=== PATIENT | female | born 1955 | race Caucasian/White ===

== ENCOUNTER → 2017-10-20 09:51 | Outpatient (CLI) | payer OTHER, SELFPAY ==
[2017-10-20 12:22] LABS: Absolute Lymphocyte Count 1.61 X10^3/ul (0.83-4.51); Absolute Neutrophil Count 4.8 X10^3/uL (2.0-7.7); Basophil# 0.06 X10^3/uL; Basophil% 0.8 % (0-1); Eosinophil# 0.18 X10^3/uL; Eosinophils% 2.5 % (0-5); Hematocrit 48.3 % (37-47); Hemoglobin 16.2 g/dl (12.0-15.0); Lymphocyte # 1.61 X10^3/ul (4.0); Lymphocyte % 22.6 % (19-41); Mean Corp Hgb Conc 33.5 g/gl (32-36); Mean Corpuscular Hgb 31.3 pg (27.0-32.0); Mean Corpuscular Volume 93.2 fL (81-99); Mean Platelet Vol. 10.3 fl (6.2-12.0); Monocyte# 0.47 X10^3/uL; Monocyte% 6.6 % (0-10); Neutrophil # 4.78 X10^3/uL (2.7-7.7); Neutrophil % 67.4 % (47-70); Platelet Count 257 K/mm3 (150-450); RBC Distribution Width CV 13.2 % (11.6-14.6); RBC Distribution Width SD 44.3 fl (35.1-43.9); Red Blood Count 5.18 M/mm3 (4.2-5.4); White Blood Count 7.1 K/mm3 (4.4-11.0)
[2017-10-20 12:30] LABS: POSITIVE COUNT NO; POSITIVE DIFFERENTIAL NO; POSITIVE MORPHOLOGY NO
[2017-10-20 13:03] LABS: AST(SGOT) 12 U/L (15-37); Alanine Aminotransfer ALT/SGPT 20 U/L (13-56); Albumin, Serum 3.6 g/dL (3.2-5.0); Alkaline Phosphatase 84 U/L (45-117); Anion Gap 4 (5-15); BUN 9 mg/dL (7-18); BUN/Creat Ratio 19.7 RATIO (10-20); Calcium,Total 8.5 mg/dL (8.5-10.1); Chloride 100 mmol/L (98-107); Creatinine, Serum 0.46 mg/dL (0.55-1.02); EST Glomerular Filtration Rate 146 mL/min (>60); Est Glom Filt Rate - Afr Amer 177 mL/min (>60); Globulin 3.5 g/dL (2.2-4.2); Glucose 92 mg/dL (74-106); Potassium 4.3 mmol/L (3.5-5.1); Protein, Total 7.1 g/dL (6.4-8.2); Sodium Level 136 mmol/L (136-145)
[2017-10-23 09:55] LABS: QNTFERON TB Ag Minus Nil Value < 0 IU/mL (.); QNTFERON TB Ag Value 0.03 IU/mL (.); QNTFERON TB Mitogen Value > 10.00 IU/mL (.); QNTFERON TB Nil Value 0.04 IU/mL (.)
[2017-10-23 15:50] LABS: QNTIFERON TB Gold Negative (Negative)
== END ==
PROVIDERS: Family Provider Family Medicine; PCP Family Medicine; Visit Provider Dermatology Pediatric Dermatology
DX: L40.0 Psoriasis vulgaris (principal); Z79.899 Other long term (current) drug therapy
CPT/HCPCS: 36415; 80053; 85025; 86480

== ENCOUNTER → 2018-10-12 11:40 | Outpatient (CLI) | payer MEDICARE, SELFPAY ==
[2016-05-04 11:19] VITALS: BMI 23.4
[2018-10-12 13:28] LABS: Absolute Lymphocyte Count 1.95 X10^3/ul (0.83-4.51); Absolute Neutrophil Count 5.6 X10^3/uL (2.0-7.7); Basophil# 0.06 X10^3/uL; Basophil% 0.7 % (0-1); Eosinophil# 0.18 X10^3/uL; Eosinophils% 2.2 % (0-5); Hematocrit 46.7 % (37-47); Hemoglobin 15.1 g/dl (12.0-15.0); Lymphocyte # 1.95 X10^3/ul (4.0); Lymphocyte % 23.5 % (19-41); Mean Corp Hgb Conc 32.3 g/gl (32-36); Mean Corpuscular Hgb 29.8 pg (27.0-32.0); Mean Corpuscular Volume 92.3 fL (81-99); Mean Platelet Vol. 10.6 fl (6.2-12.0); Monocyte# 0.54 X10^3/uL; Monocyte% 6.5 % (0-10); Neutrophil # 5.56 X10^3/uL (2.7-7.7); Neutrophil % 66.9 % (47-70); POSITIVE COUNT NO; POSITIVE DIFFERENTIAL NO; POSITIVE MORPHOLOGY NO; Platelet Count 274 K/mm3 (150-450); RBC Distribution Width CV 13.7 % (11.6-14.6); RBC Distribution Width SD 45.1 fl (35.1-43.9); Red Blood Count 5.06 M/mm3 (4.2-5.4); White Blood Count 8.3 K/mm3 (4.4-11.0)
[2018-10-12 13:38] LABS: AST(SGOT) 14 U/L (15-37); Alanine Aminotransfer ALT/SGPT 22 U/L (13-56); Albumin, Serum 3.9 g/dL (3.2-5.0); Alkaline Phosphatase 92 U/L (45-117); Anion Gap 9 (5-15); BUN 10 mg/dL (7-18); BUN/Creat Ratio 18.5 RATIO (10-20); Bilirubin, Direct 0.06 mg/dL (0.00-0.30); Calcium,Total 9.1 mg/dL (8.5-10.1); Chloride 105 mmol/L (98-107); Creatinine, Serum 0.54 mg/dL (0.55-1.02); EST Glomerular Filtration Rate 120 mL/min (>60); Est Glom Filt Rate - Afr Amer 146 mL/min (>60); Globulin 4.2 g/dL (2.2-4.2); Glucose 86 mg/dL (74-106); Potassium 4.2 mmol/L (3.5-5.1); Protein, Total 8.1 g/dL (6.4-8.2); Sodium Level 141 mmol/L (136-145)
[2018-10-14 20:08] LABS: QNTFERON TB Mitogen Value > 10.00 IU/mL (.); QNTFERON TB Nil Value 0.02 IU/mL (.); QNTFERON TB1+ Ag Value 0.02 IU/mL (.); QNTFERON TB2+ Ag Value 0.02 IU/mL (.)
[2018-10-15 11:12] LABS: QNTIFERON TB Positive Criteria Negative (Negative)
== END ==
PROVIDERS: Referring Provider Physician Assistant; Visit Provider Physician Assistant
DX: L40.0 Psoriasis vulgaris (principal); L82.1 Other seborrheic keratosis; D22.5 Melanocytic nevi of trunk; L81.4 Other melanin hyperpigmentation; Z08 Encounter for follow-up examination after completed treatment for malignant neoplasm; L57.8 Other skin changes due to chronic exposure to nonionizing radiation; L57.0 Actinic keratosis; L81.8 Other specified disorders of pigmentation; L90.5 Scar conditions and fibrosis of skin; D48.5 Neoplasm of uncertain behavior of skin; M12.9 Arthropathy, unspecified; Z79.899 Other long term (current) drug therapy; Z85.828 Personal history of other malignant neoplasm of skin
CPT/HCPCS: 36415; 80048; 80076; 85025; 86480

== ENCOUNTER → 2019-10-19 10:56 | Outpatient (CLI) | payer MEDICARE, SELFPAY ==
[2016-05-04 11:19] VITALS: BMI 23.4
[2019-10-19 12:33] LABS: Absolute Lymphocyte Count 2.12 X10^3/uL (0.83-4.51); Absolute Neutrophil Count 4.7 X10^3/uL (2.0-7.7); Basophil# 0.05 X10^3/uL; Basophil% 0.7 % (0-1); Eosinophil# 0.11 X10^3/uL; Eosinophils% 1.4 % (0-5); Hematocrit 51.9 % (37-47); Hemoglobin 16.8 g/dL (12.0-15.0); Lymphocyte # 2.12 X10^3/ul (4.0); Lymphocyte % 27.9 % (19-41); Mean Corp Hgb Conc 32.4 g/dL (32-36); Mean Corpuscular Hgb 30.8 pg (27.0-32.0); Mean Corpuscular Volume 95.2 fL (81-99); Mean Platelet Vol. 10.7 fl (6.2-12.0); Monocyte# 0.58 X10^3/uL; Monocyte% 7.6 % (0-10); NRBC Flagged by Analyzer 0 % (0-5); Platelet Count 263 K/mm3 (150-450); RBC Distribution Width CV 13.2 % (11.6-14.6); RBC Distribution Width SD 46.3 fl (35.1-43.9); Red Blood Count 5.45 M/mm3 (4.2-5.4); White Blood Count 7.6 K/mm3 (4.4-11.0)
[2019-10-19 12:51] LABS: ALB/GLOB Ratio 0.9 RATIO (0.9-2.4); AST(SGOT) 15 U/L (15-37); Alanine Aminotransfer ALT/SGPT 19 U/L (13-56); Albumin, Serum 3.7 g/dL (3.2-5.0); Alkaline Phosphatase 81 U/L (45-117); Anion Gap 3 (5-15); BUN 12 mg/dL (7-18); BUN/Creat Ratio 20.1 RATIO (10-20); Calcium,Total 9.5 mg/dL (8.5-10.1); Chloride 107 mmol/L (98-107); EST Glomerular Filtration Rate 107 mL/min (>60); Est Glom Filt Rate - Afr Amer 129 mL/min (>60); Glucose 97 mg/dL (74-106); Potassium 4.4 mmol/L (3.5-5.1); Protein, Total 7.7 g/dL (6.4-8.2); Sodium Level 140 mmol/L (136-145)
[2019-10-22 03:06] LABS: QNTFERON TB Mitogen Value > 10.00 IU/mL (.); QNTFERON TB Nil Value 0.01 IU/mL (.); QNTFERON TB1+ Ag Value 0.02 IU/mL (.); QNTFERON TB2+ Ag Value 0.02 IU/mL (.)
[2019-10-22 12:41] LABS: QNTIFERON TB Positive Criteria Negative (Negative)
== END ==
PROVIDERS: Referring Provider Nurse Practitioner Family; Visit Provider Nurse Practitioner Family
DX: D04.62 Carcinoma in situ of skin of left upper limb, including shoulder (principal); D04.71 Carcinoma in situ of skin of right lower limb, including hip; L40.0 Psoriasis vulgaris; Z79.899 Other long term (current) drug therapy
CPT/HCPCS: 36415; 80053; 85025; 86480

== ENCOUNTER 2021-10-03 12:47 | Outpatient (CLI) | payer MEDICARE, SELFPAY ==
--- NOTE | 2021-10-03 13:01 | CT_ITS ---
STUDY: LOW DOSE CT LUNG CANCER SCREENING REASON FOR EXAM: Female, 66 years old. SCREENING. Patient smokes 1 pack per day for 50 years. RADIATION DOSAGE (If Supplied By Facility): CTDIvol = ( 1.59 ) mGy, DLP = ( 60.05 ) mGycm TECHNIQUE: No contrast was administered. Low dose technique was utilized (average mAS-38 and kVp 120). 1.25 mm axial source images with a slice interval of 1.25-mm were reconstructed in lung windows. 2.5 mm axial source images with a slice interval of 2.5-mm were reconstructed in lung windows. 5.0 mm axial source images with a slice interval of 5.0-mm were reconstructed in soft tissue windows. Nodule measured using lung windows on PACS and/or independent workstation with automated measurement of minimum and maximum diameter. Nodule measurement reported as average diameter rounded to the nearest whole number. Growth is defined as an increase ins size of greater than 1.5 mm. COMPARISON: None. NODULES: There is a 7.4 mm noncalcified nodule in the peripheral lateral aspect of the right upper lobe as seen on axial image #55 and coronal image #46. This may represent a focal area of scarring. A follow-up CT scan in 6 months is recommended for further evaluation. Emphysema: Hyperinflation. Emphysematous changes worse in the upper lobes. Linear scarring is seen at the left lung base as well as in the anterior medial aspect of the right middle lobe. There is a 2.6 cm x 2.6 cm bleb in the peripheral lateral aspect of the right lower lobe. Endobronchial lesion: None Aorta: Mild degree of atherosclerotic calcific plaques of the aortic arch. Coronary arteries: Coronary artery calcification. Heart: Unremarkable Pulmonary artery: Unremarkable Mediastinal nodes: Unremarkable Other chest and abdominal findings: Bilateral breast prostheses. CT/Low Dose CT Lung Screening IMPRESSION: Lung-RADS category 3 - Continue screening with LDCT in 6 months. IMPORTANT NOTES FOR USE: ACR Lung-RADS Version 1.1 Assessment Categories Release Date: 2018 Category: Coded 0-4 bases on nodule(s) with highest degree of suspicion. Negative screen is defined as categories 1 and 2; a positive screen is defined as categories 3 and 4. Category 3 and 4A nodules that are unchanged on interval CT should be coded as category 2, and individuals returned to screening in 12 months. Category 4X: Category 3 or 4 nodules with additional imaging findings that increase the suspicion of lung cancer, such as spiculation, GGN that doubles in size in 1 year, enlarged lymph notes, etc. Category Modifiers: S (significant finding unrelated to lung cancer) Electronically Signed: Theo Nelson MD at 14:18 EST ,
== END 2021-10-03 23:59 | disposition short-term general hospital (02) ==
LOC: CT 12:53
DX: Z12.2 Encounter for screening for malignant neoplasm of respiratory organs (principal); F17.210 Nicotine dependence, cigarettes, uncomplicated
CPT/HCPCS: 71271

== ENCOUNTER 2023-01-18 11:40 | Emergency (ER) | payer MEDICARE, SELFPAY ==
[2023-01-18 11:41] VITALS: PULSE 155
[2023-01-18 11:44] VITALS: BP 97/75; PULSE 158; RESP 25; TEMP 36.8; O2SAT 91; BMI 25.7
--- NOTE | 2023-01-18 11:45 | EKG12_ITS ---
Test Reason : SVT Blood Pressure : / mmHG Vent. Rate : 148 BPM Atrial Rate : 000 BPM P-R Int : 000 ms QRS Dur : 090 ms QT Int : 298 ms P-R-T Axes : 000 -50 078 degrees QTc Int : 467 ms Atrial fibrillation with rapid ventricular response Left axis deviation Minimal voltage criteria for LVH, may be normal variant ( Mono product ) ST depression, consider subendocardial injury Abnormal ECG Confirmed by SELVIN JONES, RAMYA ([id number]), rewrite editor DANA MOSS ([id number]) on 01/19/2023 9:47:38 AM Referred By: MEL Confirmed By:RAMYA MONTALVO MD
--- NOTE | 2023-01-18 11:45 | RAD_ITS ---
STUDY: X-RAY CHEST REASON FOR EXAM: Female, 67 years old. Chest pain TECHNIQUE: Single AP portable view of the chest. COMPARISON: Comparison is made with prior study May 04, 2016. FINDINGS: EKG lead are seen. Hyperinflation. Scattered calcified granulomas. There is no demonstrated pleural abnormality. Normal size heart. Normal mediastinum and cash. There is prominence of the pulmonary hilar arteries without peripheral pulmonary vascular congestion, suggesting pulmonary hypertension. There is atherosclerotic calcification of the aortic arch with tortuosity. There is a dextroscoliosis of the thoracic spine. There is degenerative osteoarthritis of the bilateral shoulders. There is no demonstrated abnormality of the visualized soft tissue structures of the upper abdomen. RAD/Chest 1 View (Portable) IMPRESSION: Hyperinflation. Prominence of the pulmonary bilaterally. Scattered calcified granulomas. Electronically Signed: Theo Nelson MD at 12:18 EDT ,
[2023-01-18 11:48] VITALS: O2SAT 90
--- NOTE | 2023-01-18 11:54 | EDS_ITS ---
HPI History of Present Illness Chief Complaint: Palpitations Detail of Chief Complaint: Potation's with accelerated heart rate. Informant: patient Onset/Context/Timing Onset: Today and Hours Activity at onset: sudden Timing: Continuous Associated Symptoms: Negative for Nausea, Vomiting, Diaphoresis, Dyspnea, Cough, Fever, Lightheadedness, Acid Reflux or Palpitations Narrative Narrative: 67-year-old female history of COPD and hypertension on metoprolol. She has never had any NE, coronary disease or dysrhythmia. This morning she had palpitations and accelerated heart rate. She denies any recent illness. She denies any chest pain. She denies any new leg pain or swelling. No hemoptysis. No history of DVT or PE. She is on no blood thinners. No known thyroid disease. Prior Similar Symptoms: No Recent Illness/Hospitalization: No CVD Risk Factors: Negative for Diabetes PE Risk Factors: Negative for Recent Travel/Surgery, Recent Immobilization, Prior DVT or PE, Cancer or OCP + Smoking + >/=35 TAD Risk Factors: Negative for Marfan's Syndrome [facility] Medical History Acute bronchitis, unspecified History of emphysema Hypertension Home Medications albuterol sulfate 90 mcg/actuation aerosol inhaler (ProAir HFA) 1 puff inhalation Q4H PRN PRN Sob &/Or Wheezing 04/21/16 [History Last Taken Unknown] cyclobenzaprine 10 mg tablet 10 mg PO TID PRN PRN SPASMS ##60 05/06/16 [Rx Last Taken Unknown] ferrous sulfate 325 mg (65 mg iron) tablet 325 mg PO DAILY 01/18/23 [History Last Taken Unknown] furosemide 20 mg tablet 20 mg PO DAILY 01/18/23 [History Last Taken Unknown] metoprolol succinate 50 mg tablet,extended release 24 hr mg PO 01/18/23 [History Last Taken Unknown] sacubitril 24 mg-valsartan 26 mg tablet (Entresto) 1 tab PO BID 01/18/23 [History Last Taken Unknown] Allergy/AdvReac Type Severity Reaction Status Date / Time No Known Allergies Allergy Verified 01/18/23 11:46 Surgical History H/O adenoidectomy History of appendectomy Hx of neck surgery Hx of tonsillectomy Total knee replacement status Social History Smoking Status: Current every day smoker tobacco type: cigarettes ROS ROS ED ROS Narrative Denies recent illness. Palpitations accelerated heart rate today. Review of Systems ROS Unobtainable: Denies due to encephalopathy Constitutional Constitutional ED: Denies chills or fever(s) Eyes Eyes: Reports none ENT ENT ED: Denies ear pain Cardiovascular Cardiovascular: Reports as per HPI, palpitations and racing heartbeat; Denies chest pain Respiratory/Chest Respiratory/Chest: Denies cough or dyspnea Gastrointestinal Gastrointestinal: Denies abdominal pain Genitourinary Genitourinary ED: Denies dysuria or hematuria Musculoskeletal Musculoskeletal: Denies arthralgias Integumentary Denies abscess Neurologic Neurologic: Denies headache(s) Psychiatric Psychiatric: Denies anxiety or depression Endocrine Endocrinology: Denies cold intolerance Hematologic/Lymphatic Hematologic/Lymphatic: Denies easy bleeding Allergic/Immunologic Allergic/Immunologic ED: Denies mouth swelling or tongue swelling EXAM Physical Exam Narrative Exam Narrative: Well-appearing 67-year-old female. Obvious A-fib RVR on the monitor. Heart rate 158. Blood pressure was initially 97/75. Pulse ox 91% on room air no hypoxia. She has COPD. She is in no distress. She is sitting upright in bed. H EENT exam unremarkable. Neck nontender no lymphadenopathy. No thyromegaly. Lungs clear to auscultation bilaterally. Heart tachycardic with irregularly irregular rate of 150. Chest wall nontender. Abdomen soft nontender. Moving all 4 extremities. Calves are nontender. She has trace ankle edema. Neurologically she is awake and alert with no focal motor deficits. Answering questions and following commands. Const Vital Signs: 01/18/23 11:44 01/18/23 11:41 01/18/23 11:48 Temperature 98.2 F Temperature Source Temporal Pulse Rate 158 H 155 H Respiratory Rate 25 H Respiratory Effort Respiratory Pattern Blood Pressure 97/75 Blood Pressure Mean 82 Pulse Ox 91 90 Oxygen Delivery Method Room Air Room Air Oxygen Flow Rate (L/min) 01/18/23 11:49 01/18/23 11:49 01/18/23 12:10 Temperature Temperature Source Pulse Rate 138 H Respiratory Rate 24 H Respiratory Effort Normal Non-Labored Normal Non-Labored Respiratory Pattern Normal Blood Pressure 118/71 Blood Pressure Mean 86 Pulse Ox 90 Oxygen Delivery Method Nasal Cannula Oxygen Flow Rate (L/min) 2 01/18/23 12:58 Temperature Temperature Source Pulse Rate 108 H Respiratory Rate 28 H Respiratory Effort Respiratory Pattern Blood Pressure 108/83 H Blood Pressure Mean 91 Pulse Ox 91 Oxygen Delivery Method Nasal Cannula Oxygen Flow Rate (L/min) 2 Positive well nourished and well developed; Negative for obese, cachectic, contractures or unkempt General Appearance ED: well developed and NAD; Negative for unkempt, cachectic, contractures or pallor Nutritional Appearance: Negative for cachectic or obese HEENT Reports moist mucous membranes; Denies dry mucous membranes normocephalic and atraumatic; Negative for trauma or tenderness Mouth ED: No dry mucous membranes Mouth: No dry mucous membranes Eyes PERRL and EOMs intact bilaterally General Eye ED: Negative for pale conjunctiva or scleral icterus Neck no lymphadenopathy, supple and no JVD General: Negative for tenderness Chest Wall inspection of chest normal and palpation of chest normal Chest: Negative for tenderness Resp normal respiratory effort and clear to auscultation bilaterally Effort and Inspection: Negative for respiratory distress Auscultation: Negative for rales, rhonchi or wheezes Cardio S1 normal heart sound, S2 normal heart sound and no murmurs; Negative for r egular rate or regular rhythm Rate: tachycardic Rhythm: abnormal rhythm irregularly irregular GI normal to inspection, nondistended, normoactive bowel sounds, soft to palpation, non-tender, non-distended and no masses Auscultation: Negative for hyperactive bowel sounds Back/Spine no CVA tenderness and no thoracic nor lumbar tenderness General Back: Negative for CVA tenderness Cervical Spine: Negative for cervical spine tenderness Extremity normal to inspection Extremity Narrative: Trace ankle edema bilaterally. General Extremety ED: Yes edema General Extremity: edema Neuro oriented x3 and CN's II-XII intact bilaterally Sensorium / Orientation: awake, alert, oriented to person, oriented to place and oriented to time; Negative for confused, lethargic or stuporous Motor Exam: strength 5/5 throughout Psych mental status grossly normal Appearance: Negative for unkempt Mood & Affect: Negative for depressed, anxious or tearful Skin no rashes or lesions noted and no wounds General Skin Exam: Negative for jaundice or pallor Rashes: No rashes noted Trauma: Negative for abrasion or laceration MDM MDM MDM Narrative Medical decision making narrative: 67-year-old female history of COPD and hypertension with new onset A-fib RVR. She is hypotensive from it. Squad gave her a fluid bolus I will give her another. She will be given Cardizem we will very slowly. Moving cardiac work- up will be instituted along with TSH. Repeat exam patient is doing well at 12:30 PM. Heart rate is now in the 80s and 90s she remains in A-fib after the Cardizem. Discussed with patient all of her test results. She wants to be worked up as an outpatient. Currently she is controlled rate. She is on a beta-theodore at home. She has had no chest pain or other concerning symptoms. I spoke with the patient's nurse practitioner and the cardiology office in [place]. We discussed her case and she will ensure close follow-up and is comfortable with discharge. History & Record Review Discussion w/independent historian: Patient Additional record(s) reviewed:: Prior inpatient record, Prior outpatient record, Prior ED visit and Prior labs Lab Data Attestation: I reviewed the patient's lab results. Lab results narrative: CBC shows a white count 8.3. H&H 17 and 53. Platelets 256. Electrolytes unremarkable gap of a normal BUN and creatinine. Glucose 116. Troponin normal at 8 and TSH 1.1. Labs: Laboratory Results - last 24 hr 01/18/23 01/18/23 11:15 11:15 WBC 8.3 RBC 5.50 H Hgb 17.6 H Hct 53.8 H MCV 97.8 MCH 32.0 MCHC 32.7 RDW Std Deviation 47.7 H RDW Coeff of Sarah 13.2 Plt Count 256 MPV 10.2 Immature Gran % (Auto) 0.200 Neut % (Auto) 59.3 Lymph % (Auto) 30.3 [place] % (Auto) 6.8 Eos % (Auto) 2.4 Baso % (Auto) 1.0 Absolute Neuts (auto) 4.9 Absolute Lymphs (auto) 2.52 Nucleated RBC % 0 Sodium 141 Potassium 3.9 Chloride 103 Carbon Dioxide 30.0 Anion Gap 8 BUN 15 Creatinine 0.82 Estim Creat Clear Calc 55.91 Est GFR (MDRD) Af Amer 89 Est GFR (MDRD) Non-Af 74 BUN/Creatinine Ratio 18.4 Glucose 116 H Calcium 9.4 Troponin I High Sens 8 TSH 1.12 Radiography Chest X-Ray - ED: 1 View, Read by ED Physician, Read by Radiologist, Lungs, Mediastinum, Bony Structures, No Acute Disease and Chronic Changes Diagnostic Testing: Clinical Impression(s) from Imaging Studies Chest X-Ray 01/18/23 11:45 IMPRESSION: Hyperinflation. Prominence of the pulmonary bilaterally. Scattered calcified granulomas. Electronically Signed: Theo Nelson MD at 12:18 EDT , Chest x-ray, portable, single view interpreted both by myself and the radiologist shows no new processes. Chronic changes. Normal cardiac silhouette. Normal mediastinum. Change Rhythm Strip Rhythm Strip: A-fib Rate: 148 Ectopy: None EKG Initial EKG: Attestation: I personally reviewed and interpreted this EKG as follows: Interpretation: Atrial Fibrillation Comments: New onset atrial fibrillation with rapid ventricular rate of 148. Rate dependent ST depression laterally. LVH. Changed from prior EKG from 7 years ago in 2016. Prior EKG tracings: available for review Prior: Changed Discharge Plan Triage Chief Complaint: Palpitations ED Provider: Meng Ramirez Dx/Rx/DC Orders Clinical Impression: Atrial fibrillation with rapid ventricular response, Atrial fibrillation, new onset, History of COPD Instructions: ED AFIB Prescriptions: No Action albuterol sulfate [ProAir HFA] 1 PUFF inhaler 1 puff inhalation Q4H PRN PRN (Reason: Sob &/Or Wheezing) Label Comments: breathing cyclobenzaprine 10 MG tablet 10 mg PO TID PRN PRN (Reason: SPASMS) Qty: 60 0RF Label Comments: muscle spasms Entresto 24-26 mg tablet 1 tab PO BID Label Comments: TAKE 1 TABLET BY MOUTH TWICE A DAY metoprolol succinate 50 mg tablet extended release 24 hr PO Label Comments: TAKE 1 TABLET BY MOUTH EVERY DAY ferrous sulfate 325 mg (65 mg iron) tablet 325 mg PO DAILY Label Comments: TAKE 1 TABLET BY MOUTH EVERY OTHER DAY WITH FOOD furosemide 20 mg tablet 20 mg PO DAILY Label Comments: TAKE 1 TABLET BY MOUTH EVERY DAY Primary Care Provider: Michelle Barrios Referrals: Michelle Barrios, DO [Primary Care Provider] - As Needed Activity Restrictions/Additional Instructions: You have a new abnormal heart rhythm called atrial fibrillation. It initially was accelerated with a heart rate in the 150s. You are still in the abnormal rhythm but your rates now in the 80s. Continue your blood pressure medication metoprolol which should also help control your heart rate. Follow-up with your mammal control agent as soon as possible. Call them today to get an appointment. They may want to start you on different medications, do other cardiac testing or even start you on a blood thinner. Watch your blood pressure and pulse check at least twice daily. If you are heart rate continues over 100 you need to be reevaluated. If you are feeling worse you need to be reevaluated. I spoke with your cardiology nurse practitioner in [place] call their office and they will ensure close follow-up. Disposition Disposition: Home, Self Care
[2023-01-18 12:10] VITALS: BP 118/71; PULSE 138; RESP 24; O2SAT 90
[2023-01-18 12:10] LABS: Absolute Lymphocyte Count 2.52 X10^3/uL (0.83-4.51); Absolute Neutrophil Count 4.9 X10^3/uL (2.0-7.7); Basophil# 0.08 X10^3/uL; Eosinophils% 2.4 % (0-5); Hematocrit 53.8 % (37-47); Hemoglobin 17.6 g/dL (12.0-15.0); Lymphocyte # 2.52 X10^3/ul (0.83-4.51); Lymphocyte % 30.3 % (19-41); Mean Corp Hgb Conc 32.7 g/dL (32-36); Mean Corpuscular Volume 97.8 fL (81-99); Mean Platelet Vol. 10.2 fl (6.2-12.0); Monocyte# 0.57 X10^3/uL; Monocyte% 6.8 % (0-10); NRBC Flagged by Analyzer 0 % (0-5); Neutrophil # 4.94 X10^3/uL (2.7-7.7); Neutrophil % 59.3 % (47-70); Platelet Count 256 K/mm3 (150-450); RBC Distribution Width CV 13.2 % (11.6-14.6); RBC Distribution Width SD 47.7 fl (35.1-43.9); White Blood Count 8.3 K/mm3 (4.4-11.0)
[2023-01-18] MEDS: dilTIAZem 25 MG/5 ML Vial IV BOLUS (12:10)
[2023-01-18 12:36] LABS: Anion Gap 8 (5-15); BUN 15 mg/dL (7-18); BUN/Creat Ratio 18.4 RATIO (10-20); Calcium,Total 9.4 mg/dL (8.5-10.1); Chloride 103 mmol/L (98-107); Creatinine, Serum 0.82 mg/dL (0.55-1.02); EST Glomerular Filtration Rate 74 mL/min (>60); Est Glom Filt Rate - Afr Amer 89 mL/min (>60); Estimated Creatinine Clearance 55.91 ml/min; Glucose 116 mg/dL (74-106); Potassium 3.9 mmol/L (3.5-5.1); Sodium Level 141 mmol/L (136-145); Thyroid Stim Hormone (TSH) 1.12 uIU/mL (0.358-3.74); Troponin-I HS 8 pg/mL (3.0-54.0)
[2023-01-18 12:58] VITALS: BP 108/83; PULSE 108; RESP 28; O2SAT 91
[2023-01-18 13:30] VITALS: BP 102/85; PULSE 90; RESP 24; O2SAT 92
== END 2023-01-18 13:34 | disposition home or self-care (01) ==
PROVIDERS: Emergency Provider Emergency Medicine; Visit Provider Emergency Medicine
DX: I48.91 Unspecified atrial fibrillation (principal); J43.9 Emphysema, unspecified; I10 Essential (primary) hypertension; F17.210 Nicotine dependence, cigarettes, uncomplicated; Z79.899 Other long term (current) drug therapy
CPT/HCPCS: 71045; 80048; 84443; 84484; 85025; 93005; 96361; 96374; 99285; J7050

== ENCOUNTER 2023-04-28 20:56 | Inpatient (IN) | payer MEDICARE, SELFPAY ==
[2023-04-28 20:57] VITALS: BP 90/65; PULSE 142; RESP 20; TEMP 36.6
[2023-04-28 21:03] VITALS: BMI 24.8
[2023-04-28 21:04] VITALS: O2SAT 96
--- NOTE | 2023-04-28 21:10 | RAD_ITS ---
INDICATION: chest pain EXAMINATION/TECHNIQUE: X-RAY - XR Chest 1 View COMPARISON: 01/18/2023. FINDINGS: LINES/DEVICES: None. LUNGS: No consolidation or evidence of an effusion. No evidence of edema or a pneumothorax. MEDIASTINUM AND CARDIOVASCULAR STRUCTURES: Cardiac silhouette is normal in size and contour. Mediastinum is unremarkable. BONES AND SOFT TISSUES: No acute abnormality. RAD/Chest 1 View (Portable) IMPRESSION: No evidence of cardiopulmonary disease. Electronically Signed: Vazquez Duran DO at 21:41 EDT ,
[2023-04-28] MEDS: 0.9% Normal Saline 1,000 ML 1000 ML IV (21:12)
[2023-04-28 21:29] LABS: Absolute Lymphocyte Count 1.86 X10^3/uL (0.83-4.51); Absolute Neutrophil Count 5.1 X10^3/uL (2.0-7.7); Basophil# 0.07 X10^3/uL; Basophil% 0.9 % (0-1); Eosinophil# 0.16 X10^3/uL; Lymphocyte # 1.86 X10^3/ul (0.83-4.51); Lymphocyte % 23.7 % (19-41); Mean Corp Hgb Conc 32.2 g/dL (32-36); Mean Corpuscular Hgb 31.4 pg (27.0-32.0); Mean Corpuscular Volume 97.3 fL (81-99); Mean Platelet Vol. 10.6 fl (6.2-12.0); Monocyte# 0.64 X10^3/uL; Monocyte% 8.2 % (0-10); NRBC Flagged by Analyzer 0 % (0-5); Neutrophil # 5.09 X10^3/uL (2.7-7.7); Neutrophil % 64.9 % (47-70); Platelet Count 290 K/mm3 (150-450); RBC Distribution Width CV 15.7 % (11.6-14.6); RBC Distribution Width SD 55.4 fl (35.1-43.9); Red Blood Count 5.99 M/mm3 (4.2-5.4); White Blood Count 7.8 K/mm3 (4.4-11.0)
[2023-04-28 21:42] LABS: Hematocrit 58.3 % (37-47)
[2023-04-28 21:43] LABS: Hemoglobin 18.8 g/dL (12.0-15.0)
[2023-04-28] MEDS: 0.9% Normal Saline 1,000 ML 999 ML IV (21:43)
[2023-04-28 21:48] LABS: Anion Gap 9 (5-15); BUN 11 mg/dL (7-18); BUN/Creat Ratio 11.3 RATIO (10-20); Calcium,Total 9.4 mg/dL (8.5-10.1); Chloride 98 mmol/L (98-107); Creatinine, Serum 0.97 mg/dL (0.55-1.02); EST Glomerular Filtration Rate 60 mL/min (>60); Est Glom Filt Rate - Afr Amer 73 mL/min (>60); Glucose 167 mg/dL (74-106); Potassium 3.6 mmol/L (3.5-5.1); Sodium Level 138 mmol/L (136-145); Troponin-I HS (w/2H Reflex) 12 pg/mL (3.0-54.0)
[2023-04-28 22:18] LABS: International Normalized Ratio 3.3; Prothrombin Time (Protime)PT. 33.8 SECONDS (11.7-14.9)
[2023-04-28 22:19] VITALS: BP 124/93; PULSE 133; RESP 30; O2SAT 91
[2023-04-28 22:29] VITALS: BP 124/89; PULSE 97; RESP 27; O2SAT 98
--- NOTE | 2023-04-28 22:44 | ED.VIS.CHEST ---
HPI History of Present Illness Chief Complaint: Palpitations Narrative Narrative: 67-year-old female with recent new onset of A-fib and may currently on Coumadin and has been therapeutic. Patient on metoprolol 50 mg p.o. twice daily. She is on Lasix 20 mg daily. Patient states she has no history of CHF. Patient states that she did have some pain between her shoulder blades that she radiated into her left arm. It is now gone. The onset of this was about 730 tonight. Patient states he had a headache with this. No fevers or chills. She does have some nausea which resolved. [facility] Medical History (Updated 04/28/23 @ 23:[address] Marixa Gama DO) Acute bronchitis, unspecified Afib Chronic anticoagulation History of emphysema Hypertension Home Medications albuterol sulfate 90 mcg/actuation aerosol inhaler (ProAir HFA) 1 puff inhalation Q4H PRN PRN Sob &/Or Wheezing 04/21/16 [History Last Taken Unknown] cyclobenzaprine 10 mg tablet 10 mg PO TID PRN PRN SPASMS ##60 05/06/16 [Rx Last Taken Unknown] ferrous sulfate 325 mg (65 mg iron) tablet 325 mg PO DAILY 01/18/23 [History Last Taken Unknown] furosemide 20 mg tablet 20 mg PO DAILY 01/18/23 [History Last Taken Unknown] metoprolol succinate 50 mg tablet,extended release 24 hr mg PO 01/18/23 [History Last Taken Unknown] sacubitril 24 mg-valsartan 26 mg tablet (Entresto) 1 tab PO BID 01/18/23 [History Last Taken Unknown] Allergy/AdvReac Type Severity Reaction Status Date / Time No Known Allergies Allergy Verified 04/28/23 21:03 Surgical History H/O adenoidectomy History of appendectomy Hx of neck surgery Hx of tonsillectomy Total knee replacement status Social History Smoking Status: Current every day smoker tobacco type: cigarettes ROS ROS ED Constitutional Constitutional ED: Denies chills, fever(s) or sweats Eyes Eyes: Denies blurry vision or change in vision ENT ENT ED: Denies ear pain or sore throat Cardiovascular Cardiovascular: Reports chest pain, palpitations and racing heartbeat Respiratory/Chest Respiratory/Chest: Denies cough, dyspnea or sputum Gastrointestinal Gastrointestinal: Reports nausea; Denies abdominal pain, constipation, diarrhea or vomiting Genitourinary Genitourinary ED: Denies dysuria, hematuria or urinary frequency Musculoskeletal Musculoskeletal: Reports back pain; Denies arthralgias, myalgias or neck pain Integumentary Denies abscess, Abrasions or rash Neurologic Neurologic: Denies headache(s), paresthesias or weakness Psychiatric Psychiatric: Denies anxiety, depression, suicidal ideation or suicidal thoughts Endocrine Endocrinology: Denies polydipsia or polyuria EXAM Physical Exam Const Vital Signs: 04/28/23 20:57 04/28/23 21:04 04/28/23 21:04 Temperature 97.9 F Temperature Source Temporal Pulse Rate 142 H Respiratory Rate 20 H Respiratory Effort Normal Non-Labored Blood Pressure 90/65 Blood Pressure Mean 73 Pulse Ox 96 Oxygen Delivery Method Nasal Cannula Oxygen Flow Rate (L/min) 4 04/28/23 22:19 04/28/23 22:29 Temperature Temperature Source Pulse Rate 133 H 97 Respiratory Rate 30 H 27 H Respiratory Effort Blood Pressure 124/93 H 124/89 H Blood Pressure Mean 103 100 Pulse Ox 91 98 Oxygen Delivery Method Nasal Cannula Oxygen Flow Rate (L/min) 1 5 Positive well nourished General Appearance ED: NAD; Negative for pallor HEENT Reports moist mucous membranes normocephalic Eyes PERRL and EOMs intact bilaterally Chest Wall inspection of chest normal Resp normal respiratory effort and clear to auscultation bilaterally Auscultation: Negative for rales, rhonchi or wheezes Cardio regular rate GI normal to inspection, nondistended, normoactive bowel sounds Neuro oriented x3 and CN's II-XII intact bilaterally Sensorium / Orientation: awake and alert Psych mental status grossly normal Skin no rashes or lesions noted General Skin Exam: Negative for jaundice or pallor Heart Score History: Slightly/Non-Suspicious ECG: Normal Age: >/= 65 years Risk Factors: 1 or 2 Risk Factors Troponin: </= Normal Limit Score: 3 MDM MDM MDM Narrative Medical decision making narrative: Patient presenting with chest pain and palpitations. Differential includes acute coronary syndrome, CHF, A-fib, a flutter, pneumonia, PE. She has a negative and appears to be in A-fib on arrival. Her EKG shows A-fib with rapid ventricular response at 144 bpm without sign of EKG changes from previous EKG 18 Jan 2023. This was also in RVR. CBC will be obtained to assess white blood cell count, hemoglobin, platelets. BMP to assess renal function, electrolytes, glucose. BNP to assess for CHF. NR will be obtained to make sure she is therapeutic. Chest x-ray to rule out CHF, pneumonia. Patient's blood pressure was low on arrival and she is given 2 L of normal saline. She is on oxygen but states she does wear oxygen at home as needed. She normally wears 2 L. Patient's blood pressure did improve and she was amiodarone 50 mg and her heart rate is now in the 90s. She feels much better. She is pain-free. Initial troponin 12. BNP 736. We will obtain a delta troponin. Delta troponin came back at 71 therefore the changes greater than 20. Patient given aspirin. Discussed with hospitalist for admission. Heart rate is still well controlled in the 60s currently on the monitor. Patient is requiring a little more oxygen at this point. I do not believe she has a PE because she is therapeutic with her INR. Impression: 1. Chest pain 2. A-fib with RVR 3. Hypotension resolved Lab Data Attestation: I reviewed the patient's lab results. Labs: Laboratory Results - last 24 hr 04/28/23 04/28/23 04/28/23 20:20 22:05 22:40 WBC 7.8 RBC 5.99 H Hgb 18.8 H* Hct 58.3 H MCV 97.3 MCH 31.4 MCHC 32.2 RDW Std Deviation 55.4 H RDW Coeff of Sarah 15.7 H Plt Count 290 MPV 10.6 Immature Gran % (Auto) 0.300 Neut % (Auto) 64.9 Lymph % (Auto) 23.7 [place] % (Auto) 8.2 Eos % (Auto) 2.0 Baso % (Auto) 0.9 Absolute Neuts (auto) 5.1 Absolute Lymphs (auto) 1.86 Nucleated RBC % 0 PT Cancelled 33.8 H INR Cancelled 3.3 Sodium 138 Potassium 3.6 Chloride 98 Carbon Dioxide 31.0 Anion Gap 9 BUN 11 Creatinine 0.97 Est GFR (MDRD) Af Amer 73 Est GFR (MDRD) Non-Af 60 BUN/Creatinine Ratio 11.3 Glucose 167 H Calcium 9.4 Troponin I High Sens 12 71 H B-Natriuretic Peptide 736.0 H Radiography Diagnostic Testing: Clinical Impression(s) from Imaging Studies Chest X-Ray 04/28/23 21:10 IMPRESSION: No evidence of cardiopulmonary disease. Electronically Signed: Vazquez Duran DO at 21:41 EDT , Discharge Plan Triage Chief Complaint: Palpitations ED Provider: Silver Harris Dx/Rx/DC Orders Prescriptions: No Action albuterol sulfate [ProAir HFA] 1 PUFF inhaler 1 puff inhalation Q4H PRN PRN (Reason: Sob &/Or Wheezing) Patient Comments: breathing cyclobenzaprine 10 MG tablet 10 mg PO TID PRN PRN (Reason: SPASMS) Qty: 60 0RF Patient Comments: muscle spasms Entresto 24-26 mg tablet 1 tab PO BID Patient Comments: TAKE 1 TABLET BY MOUTH TWICE A DAY metoprolol succinate 50 mg tablet extended release 24 hr PO Patient Comments: TAKE 1 TABLET BY MOUTH EVERY DAY ferrous sulfate 325 mg (65 mg iron) tablet 325 mg PO DAILY Patient Comments: TAKE 1 TABLET BY MOUTH EVERY OTHER DAY WITH FOOD furosemide 20 mg tablet 20 mg PO DAILY Patient Comments: TAKE 1 TABLET BY MOUTH EVERY DAY Primary Care Provider: Michelle Barrios Referrals: Michelle Barrios DO [Primary Care Provider] -
[2023-04-28 22:45] LABS: Reflex Troponin-HS? (from REC) Y
[2023-04-28 23:00] VITALS: BP 115/83; PULSE 67; RESP 26; O2SAT 98
[2023-04-28 23:04] LABS: Troponin-I HS 71 pg/mL (3.0-54.0)
--- NOTE | 2023-04-28 23:17 | HP.PCM.HOS_ITS ---
[facility] - General General Date of Admission: 04/28/23 Date of Service: 04/28/23 Chief Complaint: Chest Pain HPI Narrative JANENE ALBARRAN, is a 67 F who presented to the emergency department at [facility] on 04/29/2023 complaining of back pain in her mid back that radiated to her left shoulder and down her left arm. It started at about 730 this evening and the patient reported she had a headache with this. She also complained of some associated nausea which resolved. Denies any vomiting, diaphoresis or significant shortness of breath at the time however she is feeling more short of breath now. She has a strong family history of coronary disease having one of her brothers at 57 from coronary artery disease and both of her sisters having disease as well. She is the oldest. She still smokes. At the time of my evaluation she stated her headache and resolved and she was pain-free. On presentation she was noted to be in A-fib with RVR. She was recently diagnosed with A-fib back in January of this year and has been on Coumadin and beta-theodore. She states that she does not usually feel when she goes in and out of A-fib and when she came in last time she was just having anxiety. She is never experienced the pain she had this evening. It occurred while she was driving her car. In the emergency department she was given amiodarone bolus which actually converted her to normal sinus rhythm. Her blood pressures were low on arrival likely related to her RVR and she was given 2 L IV bolus. Vital signs on presentation showed a temperature of 97.9, heart rate 142, blood pressure was 90/65, respiratory rate was 20 and oxygen saturation was not documented on room air however on 4 L nasal cannula she was 96%. CBC was unremarkable when compared to previous however she does have an erythrocytosis which appears to be chronic. INR was 3.3. Electrolytes were normal. Renal function was normal with a BUN of 11 and a serum creatinine of 0.97. Glucose was elevated at 167 and the patient does not have a documented history of diabetes. Her initial troponin was 12 with a repeat at 71. BNP was 736. Her initial EKG showed A-fib with RVR and a rate of [address] depression that was quite significant in V3 through V6. When I compared it to her previous EKG from January when she was in A-fib with RVR with a similar rate of 144 this depression was not present. She also had very slight elevation in aVR. Follow-up EKG after she had converted to normal sinus rhythm does not show any ST elevation or depression. Chest x-ray is unremarkable for any acute findings however does show hyperinflation. [facility] Medical History (Updated 04/29/23 @ 00:[address] Marixa Gama DO) Acute bronchitis, unspecified Afib Chronic anticoagulation Degenerative disc disease History of emphysema Hypertension Osteoarthritis Tobacco abuse Home Medications albuterol sulfate 90 mcg/actuation aerosol inhaler (ProAir HFA) 1 puff inhalation Q4H PRN PRN Sob &/Or Wheezing 04/21/16 [History Last Taken Unknown] cyclobenzaprine 10 mg tablet 10 mg PO TID PRN PRN SPASMS ##60 05/06/16 [Rx Last Taken Unknown] ferrous sulfate 325 mg (65 mg iron) tablet 325 mg PO DAILY anemia 01/18/23 [History Last Taken Unknown] furosemide 20 mg tablet 20 mg PO DAILY edema 01/18/23 [History Last Taken Unknown] metoprolol succinate 50 mg tablet,extended release 24 hr 50 mg PO DAILY htn 01/18/23 [History Last Taken Unknown] sacubitril 24 mg-valsartan 26 mg tablet (Entresto) 1 tab PO BID . 01/18/23 [History Last Taken Unknown] Allergy/AdvReac Type Severity Reaction Status Date / Time No Known Allergies Allergy Verified 04/28/23 21:03 Family History (Updated 04/29/23 @ 00:[address] Marixa Gama DO) Other CAD (coronary artery disease) Heart disease Hypertension Surgical History H/O adenoidectomy History of appendectomy Hx of neck surgery Hx of tonsillectomy Total knee replacement status Social History (Updated 04/29/23 @ 00:[address] Marixa Gama DO) household members: spouse housing: house Smoking Status: Current every day smoker tobacco type: cigarettes alcohol intake: current alcohol intake frequency: holidays/special occasions only substance use type: does not use ROS Constitutional Constitutional: Denies anorexia, change in weight, chills, fatigue, fever(s), malaise, night sweats, weakness or other Eyes Eyes: Denies blurry vision, change in eye color, change in vision, discharge from eye(s), double vision, erythema, eye pain, loss of vision or other ENT HEENT: Denies abnormal hearing, dysphagia, ear pain, epistaxis, headache(s), he aring loss, nasal congestion, nasal discharge, post nasal drip, sinus pressure, sore throat or other Cardiovascular Cardiovascular: Reports dyspnea on exertion and other Details: Back pain that radiated to left shoulder and down left arm-currently resolved ; Denies chest pain, claudication, edema, lightheadedness, orthopnea, palpitations, paroxysmal nocturnal dyspnea, rapid heart rate or syncope Respiratory/Chest Respiratory/Chest: Reports shortness of breath at rest and shortness of breath with exertion; Denies cough, dyspnea, excessive phlegm production, hemoptysis, productive cough, wheezing or other Gastrointestinal Gastrointestinal: Denies abdominal pain, coffee ground emesis, constipation, diarrhea, dyspepsia, hematemesis, hematochezia, loose stools, melena, nausea, vomiting or other Genitourinary Genitourinary: Denies burning urination, difficulty urinating, dysuria, hematuria, nocturia, urinary frequency, urinary hesitancy, urinary incontinence, urinary urgency or other Musculoskeletal Musculoskeletal: Reports back pain; Denies arthralgias, joint pain, joint stiffness, joint swelling, myalgias, neck pain or other Neurologic Neurologic: Denies abnormal gait, abnormal speech, confusion, disequilibrium, dizziness, focal weakness, headache(s), numbness, paresthesias, seizure-like activity, seizures, syncope, tingling, tremor(s) or other Psychiatric Psychiatric: Denies anxiety, depression, homicidal ideation, suicidal ideation or other Endocrine Endocrinology: Denies change in body appearance, cold intolerance, excessive sweating, heat intolerance, polydipsia, polyuria or other Hematologic/Lymphatic Hematologic/Lymphatic: Denies anemia, easy bleeding, easy bruising, lymphadenopathy or other Allergic/Immunologic Allergic/Immunologic: Denies rhinitis, hives, eczemia, asthma or other Vital Signs Vital Signs Vital Signs: 04/28/23 20:57 04/28/23 21:04 04/28/23 21:04 Temperature 97.9 F Temperature Source Temporal Pulse Rate 142 H Respiratory Rate 20 H Respiratory Effort Normal Non-Labored Blood Pressure 90/65 Blood Pressure Mean 73 Pulse Ox 96 Oxygen Delivery Method Nasal Cannula Oxygen Flow Rate (L/min) 4 04/28/23 22:19 04/28/23 22:29 Temperature Temperature Source Pulse Rate 133 H 97 Respiratory Rate 30 H 27 H Respiratory Effort Blood Pressure 124/93 H 124/89 H Blood Pressure Mean 103 100 Pulse Ox 91 98 Oxygen Delivery Method Nasal Cannula Oxygen Flow Rate (L/min) 1 5 Physical Exam Const alert, oriented x3, no apparent distress, average body habitus and well nourished Constitutional Narrative: Upper middle-aged, white female, appears older than stated age, sitting up in bed, appears comfortable, significant other at bedside, nontoxic-appearing and comfortable General Appearance: cooperative HEENT normocephalic, head/scalp atraumatic, hearing grossly normal bilaterally and moist oral mucous membranes HEENT Narrative: Dentures in place, Mallampati 2, no thrush Eyes PERRL, EOMs intact bilaterally and conjunctivae normal Eyes Narrative: No scleral icterus Neck no lymphadenopathy, supple, no JVD and no carotid bruits Resp no retractions and no use of accessory muscles Resp Narrative: Diffuse crackles, mild tachypnea Auscultation: crackles; Negative for rhonchi or wheezes Cardio regular rate, regular rhythm, S1 normal heart sound, S2 normal heart sound, no murmurs, no rub, no gallops and no clicks GI normal to inspection, nondistended, normoactive bowel sounds, soft to palpation and non-tender Extremity no clubbing, cyanosis or edema Extremity Narrative: Pedal pulses are 2+, radial pulses are 2+ Skin no rashes or lesions noted, no wounds, skin turgor normal, no jaundice, no petechiae and no mottling Neuro oriented x3, CN's II-XII intact bilaterally, moves all extremities and no focal motor deficits Speech: speech normal Psych affect normal Psych Narrative: Very pleasant, eye contact is good, patient interacts appropriately Results Lab / Micro Data Attestation: I reviewed the patient's lab results. 04/28/23 20:20 04/28/23 20:20 Labs: Laboratory Results - last 24 hr 04/28/23 20:20: WBC 7.8, RBC 5.99 H, Hgb 18.8 H*, Hct 58.3 H, MCV 97.3, MCH 31.4, MCHC 32.2, RDW Std Deviation 55.4 H, RDW Coeff of Sarah 15.7 H, Plt Count 290, MPV 10.6, Immature Gran % (Auto) 0.300, Neut % (Auto) 64.9, Lymph % (Auto) 23.7, [place] % (Auto) 8.2, Eos % (Auto) 2.0, Baso % (Auto) 0.9, Absolute Neuts (auto) 5.1, Absolute Lymphs (auto) 1.86, Nucleated RBC % 0, PT Cancelled, INR Cancelled, Sodium 138, Potassium 3.6, Chloride 98, Carbon Dioxide 31.0, Anion Gap 9, BUN 11, Creatinine 0.97, Est GFR (MDRD) Af Amer 73, Est GFR (MDRD) Non-Af 60, BUN/Creatinine Ratio 11.3, Glucose 167 H, Calcium 9.4, Troponin I High Sens 12, B-Natriuretic Peptide 736.0 H 04/28/23 22:05: PT 33.8 H, INR 3.3 04/28/23 22:40: Troponin I High Sens 71 H EKG Initial EKG: Attestation: I personally reviewed and interpreted this EKG as follows: Prior EKG tracings: available for review (Previous EKG from January showed A- fib with RVR at a rate of [address]-T wave changes) EKG Rhythm Intrepretation: Atrial Fibrillation (With RVR and a rate of [address] depression that significant in V3 through V6 and mild ST elevation in aVR) Follow-up EKG: Attestation: I personally reviewed and interpreted this EKG as follows: Prior EKG tracings: available for review EKG Rhythm Intrepretation: Sinus Rhythm (ST segment depression that was noted while in A-fib had resolved) Radiology Impression Chest X-Ray 04/28/23 21:10 IMPRESSION: No evidence of cardiopulmonary disease. Electronically Signed: Vazquez Duran DO at 21:41 EDT , Assessment & Plan Assessment/Plan (1) Chest pain: (2) Paroxysmal atrial fibrillation with RVR: (3) Erythrocytosis: (4) Hyperglycemia: (5) Elevated troponin I level: (6) Elevated brain natriuretic peptide (BNP) level: PLAN: Plan NSTEMI -Patient was found to be in RVR on presentation -Pain that radiated to her back and to her left shoulder down her left arm that subsided when her rate was more controlled however her EKG was markedly abnormal while she was on RVR -EKG showed mild ST elevation in aVR and significant ST depression in V3 through V6 -I reviewed her EKG from previous when she was RVR at the same rate and these findings were not present at that time -Patient has significant family history of coronary disease with her brother dying at 57 and all of her siblings have coronary disease -I anticipate the patient will need cardiac catheterization -Aspirin load in the emergency department and then 81 mg daily -Start atorvastatin 80 mg nightly -Continue home metoprolol -Check hemoglobin A1c -Check lipids -Check echocardiogram -Had recent echocardiogram on 07/20/2022 at [facility] at which time she had an EF of 65 to 70%, mild biatrial enlargement, right ventricular systolic pressure of 35 mmHg and 1+ MR and TR -Hold Coumadin -5 mg of vitamin K with an INR of 3.3 -N.p.o. after midnight -Consult cardiology A-fib with RVR with history of PAF -Patient is now converted to normal sinus rhythm -On Coumadin chronically -Hold for anticipated cardiac catheterization -Amio load in the emergency department and has converted -We will hold on further Amio now--> I am wondering if ischemia precipitated this event -Continue home beta-thedoore Elevated BNP -With the above advance I suspect she developed some heart failure -Lasix 40 mg IV push twice daily -Continue home meds appropriately -Check echocardiogram Erythrocytosis -Patient still smoking and I suspect this is related to her history of tobacco abuse -Anticipate that she may be hypoxic especially at night and patient thinks that she may be as well -Would recommend outpatient work-up further if not been pursued -Continue supplemental oxygen to maintain sats greater than 88% -It appears that the patient may be on iron supplements at home if so after meds confirmed will hold COPD/emphysema -Highly recommend pulmonary follow-up after discharge -Recommend tobacco cessation -As needed albuterol available Tobacco abuse -Recommend cessation -Nicotine patch available DVT prophylaxis -Patient is fully anticoagulated with Coumadin and INR is therapeutic at 3.3 CODE STATUS -Full code as verified on admission Charges/Coding Visit Charges Inpatient E&M: 52108 Init Hosp L3
[2023-04-28 23:20] VITALS: BP 115/83; PULSE 68; RESP 26; TEMP 36.6; O2SAT 95
[2023-04-29] VITALS (10 sets, daily range): BP systolic 107–154; BP diastolic 68–103; PULSE 63–74; RESP 16–25; TEMP 36.1–36.9; O2SAT 91–96; BMI 24.8; BMI 24.9
--- NOTE | 2023-04-29 00:35 | ECHOD_ITS ---
Reason For Study: CHF Procedure This was a 2D Doppler, Color Flow transthoracic echocardiogram. Technically difficult study due to patient movement. Patient scenned supine due to breathing issues. Exam performed portable in patient room. Left Ventricle Normal LV size. Septal bounce. Left ventricular systolic function is normal. The estimated ejection fraction is 60 %. Stage 1 diastolic dysfunction. No regional wall motion abnormalities noted. Right Ventricle Normal RV size. Moderate global right ventricular systolic dysfunction. Atria Normal left atrium. The right atrium is mildly enlarged. Mitral Valve Mild mitral annular calcification. Mild diffuse mitral valve thickening. There is no mitral valve stenosis. Mild (1+) mitral valve insufficiency. Tricuspid Valve Normal tricuspid valve. Mild (1+) tricuspid valve insufficiency. Right ventricular systolic pressure estimated to be 49 mmHg. Moderate pulmonary hypertension. Aortic Valve Trisinus/trileaflet aortic valve. Pulmonic Valve Normal pulmonic valve. Trivial pulmonic valve insufficiency. Great Vessels Mild atherosclerosis of the ascending aorta. Normal sized aortic root. Pericardium/Pleural No pericardial effusion. MMode/2D Measurements & Calculations LVIDd: 4.3 cm IVSd: 1.2 cm LVOT diam: 2.3 cm LVIDs: 2.9 cm LVPWd: 0.96 cm LVOT area: 4.2 cm2 RVDd: 3.2 cm FS: 33.0 % LAV(MOD-sp4): 46.2 ml LVAd ap4: 25.4 cm2 SV(MOD-sp4): 41.5 ml LVLd ap4: 7.4 cm EDV(MOD-sp4): 77.5 ml EDV(sp4-el): 73.9 ml LVAs ap4: 15.5 cm2 LVLs ap4: 6.1 cm ESV(MOD-sp4): 36.0 ml ESV(sp4-el): 33.1 ml EF(MOD-sp4): 53.5 % EF(sp4-el): 55.2 % SV(sp4-el): 40.8 ml LA A4 area: 17.8 cm2 LA dimension(2D): 3.2 cm RA A4 area: 16.2 cm2 TAPSE: 2.1 cm Time Measurements MV dec time: 0.21 sec Doppler Measurements & Calculations MV E max jorge luis: 76.9 cm/sec Lat Peak E' Jorge Luis: 8.3 cm/sec Med Peak E' Jorge Luis: 5.0 cm/sec MV A max jorge luis: 94.6 cm/sec E/E' lat: 9.2 E/E' med: 15.5 MV E/A: 0.81 MV V2 max: 96.6 cm/sec Ao V2 max: 124.8 cm/sec MV max P.7 mmHg MV dec slope: 362.3 cm/sec2 Ao max P.2 mmHg MV V2 mean: 65.2 cm/sec Ao V2 mean: 76.9 cm/sec MV mean P.9 mmHg Ao mean P.8 mmHg MV V2 VTI: 29.2 cm Ao V2 VTI: 26.7 cm AV (velocity ratio): 0.78 MVA(VTI): 3.0 cm2 WILDER(I,D): 3.3 cm2 WILDER(V,D): 3.5 cm2 LV V1 max: 103.0 cm/sec SV(LVOT): 88.0 ml PA V2 max: 82.3 cm/sec LV V1 max P.3 mmHg PA V2 mean: 56.9 cm/sec LV V1 mean P.3 mmHg LV V1 mean: 69.9 cm/sec LV V1 VTI: 20.8 cm TR max jorge luis: 319.9 cm/sec TR max P.9 mmHg ECHO/Echo Complete Interpretation Summary The estimated ejection fraction is 60 %. Stage 1 diastolic dysfunction. Mild (1+) mitral valve insufficiency. Moderate pulmonary hypertension. Moderate global right ventricular systolic dysfunction. The right atrium is mildly enlarged. Ordering Physician: Marixa Gama Referring Physician: ELIAZAR BENITO Performed By: Brenda Carpenter RCS
--- NOTE | 2023-04-29 01:48 | EKG12_ITS ---
Test Reason : CP admission Blood Pressure : / mmHG Vent. Rate : 076 BPM Atrial Rate : 076 BPM P-R Int : 150 ms QRS Dur : 096 ms QT Int : 408 ms P-R-T Axes : 088 -73 -64 degrees QTc Int : 459 ms Sinus rhythm with Premature atrial complexes Left axis deviation Minimal voltage criteria for LVH, may be normal variant ( [place] product ) Nonspecific T wave abnormality Abnormal ECG When compared with ECG of 28-APR-2023 23:46, MANUAL COMPARISON REQUIRED, DATA IS UNCONFIRMED Confirmed by SELVIN JONES, RAMYA ([id number]), metropolitan editor ALFREDO LINN ([id number]) on 06/21/2023 1:19:46 PM Referred By: Natan Confirmed By:RAMYA MONTALVO MD
[2023-04-29 02:47] LABS: Absolute Lymphocyte Count 1.15 X10^3/uL (0.83-4.51); Absolute Neutrophil Count 6.8 X10^3/uL (2.0-7.7); Basophil# 0.07 X10^3/uL; Basophil% 0.8 % (0-1); Eosinophil# 0.03 X10^3/uL; Eosinophils% 0.3 % (0-5); Hematocrit 55.3 % (37-47); Hemoglobin 17.2 g/dL (12.0-15.0); Lymphocyte # 1.15 X10^3/ul (0.83-4.51); Lymphocyte % 12.9 % (19-41); Mean Corp Hgb Conc 31.1 g/dL (32-36); Mean Corpuscular Hgb 31.2 pg (27.0-32.0); Mean Corpuscular Volume 100.4 fL (81-99); Mean Platelet Vol. 9.8 fl (6.2-12.0); Monocyte# 0.83 X10^3/uL; Monocyte% 9.3 % (0-10); NRBC Flagged by Analyzer 0 % (0-5); Neutrophil # 6.79 X10^3/uL (2.7-7.7); Neutrophil % 76.3 % (47-70); Platelet Count 226 K/mm3 (150-450); RBC Distribution Width CV 15.8 % (11.6-14.6); RBC Distribution Width SD 58.4 fl (35.1-43.9); Red Blood Count 5.51 M/mm3 (4.2-5.4); White Blood Count 8.9 K/mm3 (4.4-11.0)
[2023-04-29 02:57] LABS: International Normalized Ratio 2.7; Prothrombin Time (Protime)PT. 28.9 SECONDS (11.7-14.9)
[2023-04-29 03:07] LABS: Hemoglobin A1c 5.6 % (3.8-5.6)
[2023-04-29 03:20] LABS: Troponin-I HS 897 pg/mL (3.0-54.0)
[2023-04-29 04:11] LABS: ALB/GLOB Ratio 0.9 RATIO (0.9-2.4); AST(SGOT) 55 U/L (15-37); Alanine Aminotransfer ALT/SGPT 47 U/L (13-56); Albumin, Serum 2.9 g/dL (3.2-5.0); Alkaline Phosphatase 60 U/L (45-117); Anion Gap 3 (5-15); BUN 9 mg/dL (7-18); BUN/Creat Ratio 12.3 RATIO (10-20); Calcium,Total 7.8 mg/dL (8.5-10.1); Chloride 108 mmol/L (98-107); Cholesterol 143 mg/dL (200); Creatinine, Serum 0.73 mg/dL (0.55-1.02); EST Glomerular Filtration Rate 84 mL/min (>60); Est Glom Filt Rate - Afr Amer 101 mL/min (>60); Estimated Creatinine Clearance 45.85 ml/min; Globulin 3.1 g/dL (2.2-4.2); Glucose 122 mg/dL (74-106); High Density Lipoprotein 52 mg/dL; Magnesium 1.9 mg/dL (1.6-2.6); Phosphorus 4.4 mg/dL (2.5-4.9); Sodium Level 140 mmol/L (136-145); Thyroid Stim Hormone (TSH) 0.87 uIU/mL (0.358-3.74); Triglycerides 60 mg/dL; Very Low Density Lipoprotein 12 mg/dL (5-40)
--- NOTE | 2023-04-29 05:52 | EKG12_ITS ---
Test Reason : AM EKG Blood Pressure : / mmHG Vent. Rate : 087 BPM Atrial Rate : 087 BPM P-R Int : 136 ms QRS Dur : 094 ms QT Int : 366 ms P-R-T Axes : 070 -64 030 degrees QTc Int : 440 ms Sinus rhythm with Premature supraventricular complexes Left axis deviation Minimal voltage criteria for LVH, may be normal variant ( [place] product ) Cannot rule out Inferior infarct , age undetermined Abnormal ECG When compared with ECG of 29-APR-2023 01:48, MANUAL COMPARISON REQUIRED, DATA IS UNCONFIRMED Confirmed by SELVIN JONES, RAMYA ([id number]), photographic editor ALFREDO LINN ([id number]) on 06/21/2023 1:08:25 PM Referred By: Confirmed By:RAMYA MONTALVO MD
--- NOTE | 2023-04-29 06:47 | PN.HOSP_ITS ---
Reason for Visit Reason for Visit: Diagnoses Secondary polycythemia (04/28/23) Paroxysmal atrial fibrillation (04/28/23) Chest pain, unspecified (04/28/23) Hyperglycemia, unspecified (04/28/23) Other specified abnormalities of plasma proteins (04/28/23) Other specified abnormal findings of blood chemistry (04/28/23) Subjective Subjective Patient fatigued given she was up through the evening as well as episode of atrial fibrillation with RVR, remains converted in sinus rhythm. She denies any marked dyspnea or any recurrent chest discomfort or atypical chest discomfort toward the back. Patient understands that given her current presentation with EKG changes although improved with conversion to sinus rhythm she does have notably elevated troponins now up to 897, awaiting cardiology evaluation with potential cardiac catheterization. Patient denies fevers, chills, nausea, emesis, abdominal pain. Objective Data Objective Data Vital Signs: Vital Signs Temp Pulse Resp BP Pulse Ox O2 Del Method O2 Flow Rate 98.1 F 63 19 H 107/68 95 Nasal Cannula 2 04/29/23 06:24 04/29/23 06:24 04/29/23 06:24 04/29/23 06:24 04/29/23 06:24 04/29/23 06:24 04/29/23 06:24 Oxygen Flow Rate (L/min) 2 Oxygen Delivery Method Nasal Cannula Weight: 145 lb 6.4 oz Body Mass Index (BMI) 24.9 Intake & Output: Intake and Output for Last 24 Hours 04/27/23 04/28/23 04/29/23 23:59 23:59 23:59 Intake Total 2102 / 2102 50.5 / 50.5 Output Total 0 / 0 Balance 2102 / 2102 50.5 / 50.5 Lab / Micro Data 04/29/23 02:40 04/29/23 02:40 Labs: Laboratory Results - last 24 hr 04/28/23 20:20: WBC 7.8, RBC 5.99 H, Hgb 18.8 H*, Hct 58.3 H, MCV 97.3, MCH 31.4, MCHC 32.2, RDW Std Deviation 55.4 H, RDW Coeff of Sarah 15.7 H, Plt Count 290, MPV 10.6, Immature Gran % (Auto) 0.300, Neut % (Auto) 64.9, Lymph % (Auto) 23.7, [place] % (Auto) 8.2, Eos % (Auto) 2.0, Baso % (Auto) 0.9, Absolute Neuts (auto) 5.1, Absolute Lymphs (auto) 1.86, Nucleated RBC % 0, PT Cancelled, INR Cancelled, Sodium 138, Potassium 3.6, Chloride 98, Carbon Dioxide 31.0, Anion Gap 9, BUN 11, Creatinine 0.97, Est GFR (MDRD) Af Amer 73, Est GFR (MDRD) Non-Af 60, BUN/Creatinine Ratio 11.3, Glucose 167 H, Calcium 9.4, Troponin I High Sens 12, B-Natriuretic Peptide 736.0 H 04/28/23 22:05: PT 33.8 H, INR 3.3 04/28/23 22:40: Troponin I High Sens 71 H 04/29/23 02:40: WBC 8.9, RBC 5.51 H, Hgb 17.2 H, Hct 55.3 H, MCV 100.4 H, MCH 31.2, MCHC 31.1 L, RDW Std Deviation 58.4 H, RDW Coeff of [place] 15.8 H, Plt Count 226, MPV 9.8, Immature Gran % (Auto) 0.400, Neut % (Auto) 76.3 H, Lymph % (Auto) 12.9 L, [place] % (Auto) 9.3, Eos % (Auto) 0.3, Baso % (Auto) 0.8, Absolute Neuts (auto) 6.8, Absolute Lymphs (auto) 1.15, Nucleated RBC % 0, PT 28.9 H, INR 2.7, Sodium 140, Potassium 4.0, Chloride 108 H, Carbon Dioxide 29.0, Anion Gap 3 L, BUN 9, Creatinine 0.73, Estim Creat Clear Calc 45.85, Est GFR (MDRD) Af Amer 101, Est GFR (MDRD) Non-Af 84, BUN/Creatinine Ratio 12.3, Glucose 122 H, Hemoglobin A1c 5.6, Calcium 7.8 L, Phosphorus 4.4, Magnesium 1.9, Total Bilirubin 0.40, AST 55 H, ALT 47, Alkaline Phosphatase 60, Troponin I High Sens 897 H*, Total Protein 6.0 L, Albumin 2.9 L, Globulin 3.1, Albumin/Globulin Ratio 0.9, Triglycerides 60, Cholesterol 143, LDL Cholesterol 79, VLDL Cholesterol 12, HDL Cholesterol 52, TSH 0.87 Radiography Diagnostic Testing: Radiology Impression Chest X-Ray 04/28/23 21:10 IMPRESSION: No evidence of cardiopulmonary disease. Electronically Signed: Vazquez Duran DO at 21:41 EDT , Physical Exam Narrative Physical Examination: General: Awake, alert, oriented x 3 and cooperative, laying on her side in the PCU bed, fatigued but notes feeling improved, no chest pain or dyspnea. Skin: Normal color, normal turgor, no icterus, no cyanosis except occasional staged ecchymoses especially to the extremity. HEENT: AT/NC, EOMI, PERRLA, mildly dry MM. Lungs: Mildly diminished, greater bases, mildly increased respiratory rate but no distress, no appreciated rales, ronchi or wheezing. Heart: Currently regular rate and rhythm; no gallop, rub audible. Abdomen: Soft, NTTP, ND, mildly hyperactive BS. Extremities: No cyanosis, clubbing, or marked edema. Neurological: Patient awake, alert, oriented as noted, cognitive function intact; pupils equally reactive to light and accommodation, cranial nerves II- XII grossly normal, moving all 4 extremities, no focal deficits, strength mildly to moderately Decreased secondary to acute present patient, improved however since initial ED arrival. Psychiatric: Affect appears fatigued otherwise normal, no acute evidence of depressive or anxiety feelings. Assessment & Plan Assessment/Plan (1) Paroxysmal atrial fibrillation: PLAN: Plan The patient is a 67 y/o F w/ PMHx: PAF on coumadin, Chronic anemia/Fe deficiency anemia, HTN, HLD, Tobacco use, COPD, Chronic back pain s/p cervical neck surgery who presents to the [facility] ED on 04/28/23 with history of #1. Chest Pain w/ Acute NSTEMI, unclear type with notable ST EKG changes in the setting of #2: EKG in ED w/ initial atrial fibrillation with RVR with rate [address] depression significant 3V3 to V6 not present on 01/2023 EKG which demonstrated atrial fibrillation with RVR of similar rate at that time with also slight elevation in aVR with follow-up EKG after conversion to sinus rhythm with no ST elevation depressions, CXR w/ no acute cardiopulmonary findings. Initial troponin 12 with trending performed--> 71--> 897. Admitted to PCU, maintained on telemetry monitoring, serial cardiac enzymes obtained as noted, magnesium 1.9, TSH 0.87, Coumadin held and patient ministered vitamin K with repeat INR trending pending cardiology evaluation, fortunately converted to sinus rhythm the ED following administration of amiodarone bolus with continued oral metoprolol regimen, maintained on daily baby aspirin, metoprolol, high dose atorvastatin, from records given low BP Entresto held temporarily, 04/29/23 ECHO w/ EF 60%, stage I diastolic dysfunction, mild MVI, moderate pulmonary h ypertension, moderate global RV systolic dysfunction, mildly enlarged RA. #2. Paroxysmal atrial fibrillation w/ RVR with suspected volume overload associated with elevated BNP: EKG in ED w/ initial atrial fibrillation with RVR with rate [address] depression significant 3V3 to V6 not present on 01/2023 EKG which demonstrated atrial fibrillation with RVR of similar rate at that time with also slight elevation in aVR with follow-up EKG after conversion to sinus rhythm with no ST elevation depressions, CXR w/ no acute cardiopulmonary findings. Initial troponin 12 with trending performed--> 71--> 897. Patient as noted above administered amiodarone bolus. Maintain on telemetry, cardiac enzymes increased as noted above, magnesium normal, TSH normal, repeat echocardiogram requested. Coumadin temporarily held and low-dose of vitamin K administered per admitting hospitalist for suspected need for cardiac catheterization especially given EKG changes noted. 04/29/23 ECHO w/ EF 60%, stage I diastolic dysfunction, mild MVI, moderate pulmonary hypertension, moderate global RV systolic dysfunction, mildly enlarged RA. Patient initiated on Lasix 40 mg IV twice daily, will continue pending cardiology evaluation. #3. Chronic COPD with noted erythrocytosis likely related with ongoing tobacco use, possibly hypoxia at night: Not on any chronic regimen, encourage tobacco cessation, will maintain on oxygen with wean as tolerated to room air especially at night, continue ATC budesonide, PRN albuterol, HOB, IS parameters. #4. Hypertension: Continue home regimen including metoprolol, IV Lasix as noted above, temporally holding Entresto as BP low normal range, add back once appropriate, PRN hydralazine. #5. Hyperlipidemia: Initiated on high dose statin therapy, FLP with TG 60, T Chol 143, LDL 79, VLDL 12, HDL 52. #6. Tobacco Abuse: Encouraged cessation, inpatient consultation per RT, NR if desired. #7. DVT prophylaxis: Recent low-dose vitamin K administration of 5 mg with INR upon presentation 3.3, 04/29/2023 INR 2.7, continue to trend. #8. CODE STATUS: Full code. Charges/Coding Visit Charges Inpatient E&M: 34558 Subs Hosp L2
[2023-04-29] MEDS: Aspirin E.C. 81 MG Tablet PO (09:47)
--- NOTE | 2023-04-29 10:44 | PCM.CONS.C ---
Assessment & Plan Assessment/Plan (1) Angina pectoris: PLAN: Patient had significant ST changes with rapid heart rate upon presentations. These likely are ischemic changes. Discussed with patient. Offered coronary angiography with possible revascularization. Risks benefits and alternatives explained. She understand these and wishes to think about her options. Start on nitrates. Already started on aspirin. Continue beta-blockers. Lipid management as per internal medicine. (2) Paroxysmal atrial fibrillation: PLAN: Back to normal sinus rhythm. Monitor. (3) Severe chronic obstructive pulmonary disease: PLAN: As per internal medicine/pulmonology. (4) Hypertension: PLAN: Blood pressure controlled. (5) Nicotine dependence: PLAN: Counseled to quit. HPI Consult Data Date of Consult: 04/29/23 HPI Narrative Reason for Consultation: Atrial fibrillation with rapid ventricular response/arm discomfort HPI Narrative: The patient has past medical history significant for hypertension, nicotine dependence and paroxysmal atrial fibrillation. She presented to the emergency room yesterday with complaints of acute onset interscapular discomfort that radiated down her left shoulder and arm. According to her, she has never had these symptoms before. She was noted to be in atrial fibrillation with rapid ventricular response. She subsequently converted to normal sinus rhythm spontaneously. Her back pain and arm pain also resolved since. [facility] Medical History (Updated 04/29/23 @ 10:[address] Parker Lee MD) Acute bronchitis, unspecified Afib Chronic anticoagulation Degenerative disc disease History of emphysema Hypertension Osteoarthritis Tobacco abuse Home Medications albuterol sulfate 90 mcg/actuation aerosol inhaler (ProAir HFA) 1 puff inhalation Q4H PRN PRN Sob &/Or Wheezing 04/21/16 [History Last Taken Unknown] ferrous sulfate 325 mg (65 mg iron) tablet 325 mg PO DAILY anemia 01/18/23 [History Last Taken Unknown] furosemide 20 mg tablet 20 mg PO DAILY edema 01/18/23 [History Last Taken Unknown] metoprolol succinate 50 mg tablet,extended release 24 hr 50 mg PO DAILY htn 01/18/23 [History Last Taken Unknown] sacubitril 24 mg-valsartan 26 mg tablet (Entresto) 1 tab PO BID . 01/18/23 [History Last Taken Unknown] cholecalciferol (vitamin D3) 50 mcg (2,000 unit) capsule 50 mcg PO DAILY supplement 04/29/23 [History Last Taken Unknown] warfarin 5 mg tablet 5 mg PO DAILY blood thinner 04/29/23 [History Last Taken 04/28/23] Allergy/AdvReac Type Severity Reaction Status Date / Time No Known Allergies Allergy Verified 04/28/23 21:03 Family History (Updated 04/29/23 @ 00:[address] Marixa Gama DO) Other CAD (coronary artery disease) Heart disease Hypertension Surgical History H/O adenoidectomy History of appendectomy Hx of neck surgery Hx of tonsillectomy Total knee replacement status Social History (Updated 04/29/23 @ 00:[address] Marixa Gama DO) household members: spouse housing: house Smoking Status: Current every day smoker tobacco type: cigarettes alcohol intake: current alcohol intake frequency: holidays/special occasions only substance use type: does not use Physical Exam Narrative Patient appears to have some conversational dyspnea. Heart sounds 1 and 2 noted. No murmurs or rubs noted. Chest examination reveals markedly decreased air entry bilaterally. No crepitations or rhonchi. Abdomen soft. Alert oriented x3. No ankle edema noted. Risk Stratification Risk Stratification Applicable: No Objective Data Vital Signs: Vital Signs Temp Pulse Resp BP Pulse Ox O2 Del Method O2 Flow Rate 98.1 F 63 19 H 107/68 95 Nasal Cannula 2 04/29/23 06:24 04/29/23 06:24 04/29/23 06:24 04/29/23 06:24 04/29/23 06:24 04/29/23 09:35 04/29/23 09:35 Oxygen Flow Rate (L/min) 2 Oxygen Delivery Method Nasal Cannula Weight: 145 lb 6.4 oz Body Mass Index (BMI) 24.9 Intake & Output: Intake and Output for Last 24 Hours 04/27/23 04/28/23 04/29/23 23:59 23:59 23:59 Intake Total 2102 50.5 / 50.5 Output Total 0 / 0 Balance 2102 50.5 / 50.5 Lab / Micro Data 04/29/23 02:40 04/29/23 02:40 Labs: Laboratory Results - last 24 hr 04/28/23 20:20: WBC 7.8, RBC 5.99 H, Hgb 18.8 H*, Hct 58.3 H, MCV 97.3, MCH 31.4, MCHC 32.2, RDW Std Deviation 55.4 H, RDW Coeff of Sarah 15.7 H, Plt Count 290, MPV 10.6, Immature Gran % (Auto) 0.300, Neut % (Auto) 64.9, Lymph % (Auto) 23.7, [place] % (Auto) 8.2, Eos % (Auto) 2.0, Baso % (Auto) 0.9, Absolute Neuts (auto) 5.1, Absolute Lymphs (auto) 1.86, Nucleated RBC % 0, PT Cancelled, INR Cancelled, Sodium 138, Potassium 3.6, Chloride 98, Carbon Dioxide 31.0, Anion Gap 9, BUN 11, Creatinine 0.97, Est GFR (MDRD) Af Amer 73, Est GFR (MDRD) Non-Af 60, BUN/Creatinine Ratio 11.3, Glucose 167 H, Calcium 9.4, Troponin I High Sens 12, B-Natriuretic Peptide 736.0 H 04/28/23 22:05: PT 33.8 H, INR 3.3 04/28/23 22:40: Troponin I High Sens 71 H 04/29/23 02:40: WBC 8.9, RBC 5.51 H, Hgb 17.2 H, Hct 55.3 H, MCV 100.4 H, MCH 31.2, MCHC 31.1 L, RDW Std Deviation 58.4 H, RDW Coeff of Sarah 15.8 H, Plt Count 226, MPV 9.8, Immature Gran % (Auto) 0.400, Neut % (Auto) 76.3 H, Lymph % (Auto) 12.9 L, [place] % (Auto) 9.3, Eos % (Auto) 0.3, Baso % (Auto) 0.8, Absolute Neuts (auto) 6.8, Absolute Lymphs (auto) 1.15, Nucleated RBC % 0, PT 28.9 H, INR 2.7, Sodium 140, Potassium 4.0, Chloride 108 H, Carbon Dioxide 29.0, Anion Gap 3 L, BUN 9, Creatinine 0.73, Estim Creat Clear Calc 45.85, Est GFR (MDRD) Af Amer 101, Est GFR (MDRD) Non-Af 84, BUN/Creatinine Ratio 12.3, Glucose 122 H, Hemoglobin A1c 5.6, Calcium 7.8 L, Phosphorus 4.4, Magnesium 1.9, Total Bilirubin 0.40, AST 55 H, ALT 47, Alkaline Phosphatase 60, Troponin I High Sens 897 H*, Total Protein 6.0 L, Albumin 2.9 L, Globulin 3.1, Albumin/Globulin Ratio 0.9, Triglycerides 60, Cholesterol 143, LDL Cholesterol 79, VLDL Cholesterol 12, HDL Cholesterol 52, TSH 0.87 Rhythm Strip Rhythm Strip: Sinus Rhythm Cardiology Labs/Tests 04/28/23 20:20: WBC 7.8, RBC 5.99 H, Hgb 18.8 H*, Hct 58.3 H, MCV 97.3, MCH 31.4, MCHC 32.2, Plt Count 290, MPV 10.6, Immature Gran % (Auto) 0.300, Neut % (Auto) 64.9, Lymph % (Auto) 23.7, [place] % (Auto) 8.2, Eos % (Auto) 2.0, Baso % (Auto) 0.9, Absolute Neuts (auto) 5.1, Nucleated RBC % 0, PT Cancelled, INR Cancelled, Sodium 138, Potassium 3.6, Chloride 98, Carbon Dioxide 31.0, Anion Gap 9, BUN 11, Creatinine 0.97, Est GFR (MDRD) Af Amer 73, Est GFR (MDRD) Non-Af 60, BUN/Creatinine Ratio 11.3, Glucose 167 H, Calcium 9.4, B-Natriuretic Peptide 736.0 H 04/28/23 22:05: PT 33.8 H, INR 3.3 04/29/23 02:40: WBC 8.9, RBC 5.51 H, Hgb 17.2 H, Hct 55.3 H, MCV 100.4 H, MCH 31.2, MCHC 31.1 L, Plt Count 226, MPV 9.8, Immature Gran % (Auto) 0.400, Neut % (Auto) 76.3 H, Lymph % (Auto) 12.9 L, [place] % (Auto) 9.3, Eos % (Auto) 0.3, Baso % (Auto) 0.8, Absolute Neuts (auto) 6.8, Nucleated RBC % 0, PT 28.9 H, INR 2.7, Sodium 140, Potassium 4.0, Chloride 108 H, Carbon Dioxide 29.0, Anion Gap 3 L, BUN 9, Creatinine 0.73, Est GFR (MDRD) Af Amer 101, Est GFR (MDRD) Non-Af 84, BUN/Creatinine Ratio 12.3, Glucose 122 H, Hemoglobin A1c 5.6, Calcium 7.8 L, Phosphorus 4.4, Magnesium 1.9, Total Bilirubin 0.40, Triglycerides 60, Cholesterol 143, LDL Cholesterol 79, VLDL Cholesterol 12, HDL Cholesterol 52 Rhythm: EKG: ECG on presentation showed atrial fibrillation with rapid ventricular response. Significant ST depressions noted in anterior lateral leads suggestive of ischemia. Subsequent ECG shows normal sinus rhythm with resolution of ST segments. ECHO: Stress Test: Cardiac Cath: PCI: CT Surgery: Holter monitor: EPS: PPM: CXR: Chest CT Scan: Radiography Diagnostic Testing: Radiology Impression Chest X-Ray 04/28/23 21:10 IMPRESSION: No evidence of cardiopulmonary disease. Electronically Signed: Vazquez Duran DO at 21:41 EDT ,
[2023-04-29] MEDS: Furosemide 40 MG/4 ML Vial IV ×2 (11:48→17:49)
[2023-04-29] MEDS: Cholecalciferol (VIT D3) 25 MCG TABLET (1,000 UNITS) 50 MCG PO (11:48)
[2023-04-29] MEDS: Metoprolol(XL)Succ 50 MG Tablet PO (11:49)
[2023-04-29] MEDS: 0.9% Saline Lock 10 ML Syringe IV ×2 (11:49→17:49)
[2023-04-29] MEDS: Phytonadione (Vit K1) 5 MG TABLET 10 MG PO (16:13)
[2023-04-29] MEDS: Acetaminophen 325 MG Tablet 650 MG PO (16:14)
[2023-04-29] MEDS: Atorvastatin Calcium 80 MG Tablet PO (21:33)
[2023-04-30] VITALS (15 sets, daily range): BP systolic 109–180; BP diastolic 66–101; PULSE 63–93; RESP 18; TEMP 36.7–36.8; O2SAT 85–97; BMI 24.0
--- NOTE | 2023-04-30 01:48 | NURSING ---
Nicotine patch removed
[2023-04-30 05:39] LABS: Absolute Neutrophil Count 4.7 X10^3/uL (2.0-7.7); Basophil# 0.07 X10^3/uL; Eosinophil# 0.18 X10^3/uL; Eosinophils% 2.7 % (0-5); Hematocrit 55.3 % (37-47); Hemoglobin 16.9 g/dL (12.0-15.0); Mean Corp Hgb Conc 30.6 g/dL (32-36); Mean Corpuscular Hgb 31.2 pg (27.0-32.0); Mean Corpuscular Volume 102.2 fL (81-99); Mean Platelet Vol. 9.9 fl (6.2-12.0); Monocyte# 0.67 X10^3/uL; NRBC Flagged by Analyzer 0 % (0-5); Neutrophil # 4.74 X10^3/uL (2.7-7.7); Platelet Count 192 K/mm3 (150-450); RBC Distribution Width CV 15.9 % (11.6-14.6); RBC Distribution Width SD 59.6 fl (35.1-43.9); Red Blood Count 5.41 M/mm3 (4.2-5.4); White Blood Count 6.7 K/mm3 (4.4-11.0)
[2023-04-30 05:50] LABS: International Normalized Ratio 1.2; Prothrombin Time (Protime)PT. 15.2 SECONDS (11.7-14.9)
--- NOTE | 2023-04-30 06:09 | PN.HOSP_ITS ---
Reason for Visit Reason for Visit: Diagnoses Secondary polycythemia (04/29/23) Nicotine dependence, unspecified, uncomplicated (04/29/23) Essential (primary) hypertension (04/29/23) Angina pectoris, unspecified (04/29/23) Paroxysmal atrial fibrillation (04/29/23) Chronic obstructive pulmonary disease, unspecified (04/29/23) Chest pain, unspecified (04/29/23) Hyperglycemia, unspecified (04/29/23) Other specified abnormalities of plasma proteins (04/29/23) Other specified abnormal findings of blood chemistry (04/29/23) Subjective Subjective Patient with no acute events overnight per self and per nursing report. She denied any further chest discomfort. Cardiac catheterization was performed this morning and did demonstrate disease but there were no areas that necessitated PCI or were amenable based on size but did discuss at length need for lifestyle and diet modification with addition and alteration of medications per cardiology to which she was amenable. Her home health company was contacted and they stated that she was supposed to be on chronic supplemental 2 L nasal cannula at least continuously and this was also encouraged to be maintained appropriately. Patient denies fevers, chills, nausea, emesis, abdominal pain, recurrent or worsening chest pain or dyspnea. Objective Data Objective Data Vital Signs: Vital Signs Temp Pulse Resp BP Pulse Ox O2 Del Method O2 Flow Rate 98.2 F 88 18 140/95 H 93 Nasal Cannula 3 04/30/23 00:40 04/30/23 00:40 04/30/23 00:40 04/30/23 00:40 04/30/23 00:40 04/30/23 05:31 04/30/23 05:31 Oxygen Flow Rate (L/min) 3 Oxygen Delivery Method Nasal Cannula Weight: 139 lb 15.896 oz Body Mass Index (BMI) 24.0 Intake & Output: Intake and Output for Last 24 Hours 04/28/23 04/29/23 04/30/23 23:59 23:59 23:59 Intake Total 2102 / 2102 1030.5 / 1030.5 Output Total 0 / 0 Balance 210 / 2102 1030.5 / 1030.5 Lab / Micro Data 04/30/23 05:28 04/30/23 05:28 Labs: Laboratory Results - last 24 hr 04/30/23 05:28: WBC 6.7, RBC 5.41 H, Hgb 16.9 H, Hct 55.3 H, MCV 102.2 H, MCH 31.2, MCHC 30.6 L, RDW Std Deviation 59.6 H, RDW Coeff of Sarah 15.9 H, Plt Count 192, MPV 9.9, Immature Gran % (Auto) 0.300, Neut % (Auto) 71.0 H, Lymph % (Auto) 15.0 L, [place] % (Auto) 10.0, Eos % (Auto) 2.7, Baso % (Auto) 1.0, Absolute Neuts (auto) 4.7, Absolute Lymphs (auto) 1.00, Nucleated RBC % 0, PT 15.2 H, INR 1.2 Radiography Diagnostic Testing: Radiology Impression Echocardiogram 04/29/23 00:35 Interpretation Summary The estimated ejection fraction is 60 %. Stage 1 diastolic dysfunction. Mild (1+) mitral valve insufficiency. Moderate pulmonary hypertension. Moderate global right ventricular systolic dysfunction. The right atrium is mildly enlarged. Ordering Physician: Marixa Gama Referring Physician: ELIAZAR BENITO Performed By: Brenda Carpenter RCS Rhythm Strip Rhythm Strip: Sinus Rhythm Physical Exam Narrative Physical Examination: General: Awake, alert, oriented x 3 and cooperative, laying on her side in the PCU bed, status post recent cardiac cath, results reviewed, eager for discharge at this time which is being prepared. Skin: Normal color, normal turgor, no icterus, no cyanosis except occasional staged ecchymoses especially to the extremity. HEENT: AT/NC, EOMI, PERRLA, MMM. Lungs: Mildly diminished, greater bases, mildly increased respiratory rate but no distress, no appreciated rales, ronchi or wheezing. Heart: Currently regular rate and rhythm; no gallop, rub audible. Abdomen: Soft, NTTP, ND, normal BS. Extremities: No cyanosis, clubbing, or marked edema. Neurological: Patient awake, alert, oriented as noted, cognitive function intact; pupils equally reactive to light and accommodation, cranial nerves II- XII grossly normal, moving all 4 extremities, no focal deficits, strength mildly globally decreased, improved since initial presentation. Psychiatric: Affect appears fatigued otherwise normal, no acute evidence of depressive or anxiety feelings. Assessment & Plan Assessment/Plan (1) Paroxysmal atrial fibrillation: PLAN: Plan The patient is a 67 y/o F w/ PMHx: PAF on coumadin, Chronic anemia/Fe deficiency anemia, HTN, HLD, Tobacco use, COPD, Chronic back pain s/p cervical neck surgery who presents to the [facility] ED on 04/28/23 with history of #1. Chest Pain w/ Acute NSTEMI, unclear type with notable ST EKG changes in the setting of #2: EKG in ED w/ initial atrial fibrillation with RVR with rate [address] depression significant 3V3 to V6 not present on 01/2023 EKG which demonstrated atrial fibrillation with RVR of similar rate at that time with also slight elevation in aVR with follow-up EKG after conversion to sinus rhythm with no ST elevation depressions, CXR w/ no acute cardiopulmonary findings. Initial troponin 12 with trending performed--> 71--> 897. Admitted to PCU, maintained on telemetry monitoring, serial cardiac enzymes obtained as noted, magnesium 1.9, TSH 0.87. Coumadin held and patient ministered vitamin K with repeat INR normalized. Patient fortunately converted to sinus rhythm the ED following administration of amiodarone bolus with continued oral metoprolol regimen which was increased per cardiology with addition also of atorvastatin, amlodipine, daily baby aspirin and initially Entresto held secondary to low normal BP but increased therefore this was added at discharge again. 04/29/23 ECHO w/ EF 60%, stage I diastolic dysfunction, mild MVI, moderate pulmonary hypertension, moderate global RV systolic dysfunction, mildly enlarged RA. 04/30/23 cardiac catheterization with heavily calcified coronary arteries, 60% mid LAD, 80% ostial major septal, 50% proximal OM1, 60% OM 2, 40 to 50% RCA, RPDA with strong recommendation for medical therapy and risk factor modification with medication regimen changes as noted above. Cardiology cleared patient for discharge to home following cardiac catheterization with early PCP and cardiology follow-up outpatient. #2. Paroxysmal atrial fibrillation w/ RVR with suspected volume overload associated with elevated BNP: EKG in ED w/ initial atrial fibrillation with RVR with rate [address] depression significant 3V3 to V6 not present on 01/2023 EKG which demonstrated atrial fibrillation with RVR of similar rate at that time with also slight elevation in aVR with follow-up EKG after conversion to sinus rhythm with no ST elevation depressions, CXR w/ no acute cardiopulmona ry findings. Initial troponin 12 with trending performed--> 71--> 897. Patient as noted above administered amiodarone bolus. Maintained on telemetry, cardiac enzymes increased as noted above, magnesium normal, TSH normal. 04/29/23 ECHO w/ EF 60%, stage I diastolic dysfunction, mild MVI, moderate pulmonary hypertension, moderate global RV systolic dysfunction, mildly enlarged RA. Patient initiated on Lasix 40 mg IV twice daily. Vitamin K x 2 doses administered, INR 1.2, coumadin held temporarily for catheterization. 04/30/23 cardiac catheterization as noted above. Following catheterization with no marked PCI intervention needs patient resumed on aspirin, Coumadin, high-dose statin, metoprolol at increased dose per cardiology, Lasix oral regimen. #3. Chronic COPD with noted erythrocytosis likely related with ongoing tobacco use, Chronic Hypoxic Respiratory Failure (2L NC): Clarified at length with patient and she denies chronic continuous oxygen therapy however company noted that she supposed to be on 2 L nasal cannula continuously. Strongly encouraged continued supplemental oxygen, encourage tobacco cessation, continue ATC budesonide, PRN albuterol, HOB, IS parameters. #4. Hypertension: Increase beta-theodore therapy as well as addition of amlodipine and continue Entresto per cardiology discretion #5. Hyperlipidemia: Initiated on high dose statin therapy, FLP with TG 60, TChol 143, LDL 79, VLDL 12, HDL 52. #6. Tobacco Abuse: Encouraged cessation, inpatient consultation per RT, NR if desired. #7. DVT prophylaxis: Recent low-dose vitamin K administration of 5 mg with INR upon presentation 3.3 with additional vitamin K 04/29/23 per Cardiology, 04/30/23 INR 1.2. At discharge cardiology recommended continued Coumadin with INR trending outpatient. #8. CODE STATUS: Full code. Charges/Coding Visit Charges Inpatient E&M: 65988 Subs Hosp L2
--- NOTE | 2023-04-30 06:09 | PN.HOSP_ITS ---
Reason for Visit Reason for Visit: Diagnoses Secondary polycythemia (04/29/23) Nicotine dependence, unspecified, uncomplicated (04/29/23) Essential (primary) hypertension (04/29/23) Angina pectoris, unspecified (04/29/23) Paroxysmal atrial fibrillation (04/29/23) Chronic obstructive pulmonary disease, unspecified (04/29/23) Chest pain, unspecified (04/29/23) Hyperglycemia, unspecified (04/29/23) Other specified abnormalities of plasma proteins (04/29/23) Other specified abnormal findings of blood chemistry (04/29/23) Objective Data Objective Data Vital Signs: Vital Signs Temp Pulse Resp BP Pulse Ox O2 Del Method O2 Flow Rate 98.2 F 88 18 140/95 H 93 Nasal Cannula 3 04/30/23 00:40 04/30/23 00:40 04/30/23 00:40 04/30/23 00:40 04/30/23 00:40 04/30/23 05:31 04/30/23 05:31 Oxygen Flow Rate (L/min) 3 Oxygen Delivery Method Nasal Cannula Weight: 139 lb 15.896 oz Body Mass Index (BMI) 24.0 Intake & Output: Intake and Output for Last 24 Hours 04/28/23 04/29/23 04/30/23 23:59 23:59 23:59 Intake Total 2102 / 2102 1030.5 / 1030.5 Output Total 0 / 0 Balance 210 / 210 1030.5 / 1030.5 Lab / Micro Data 04/30/23 05:28 04/29/23 02:40 Labs: Laboratory Results - last 24 hr 04/30/23 05:28: WBC 6.7, RBC 5.41 H, Hgb 16.9 H, Hct 55.3 H, MCV 102.2 H, MCH 31.2, MCHC 30.6 L, RDW Std Deviation 59.6 H, RDW Coeff of Sarah 15.9 H, Plt Count 192, MPV 9.9, Immature Gran % (Auto) 0.300, Neut % (Auto) 71.0 H, Lymph % (Auto) 15.0 L, [place] % (Auto) 10.0, Eos % (Auto) 2.7, Baso % (Auto) 1.0, Absolute Neuts (auto) 4.7, Absolute Lymphs (auto) 1.00, Nucleated RBC % 0, PT 15.2 H, INR 1.2 Radiography Diagnostic Testing: Radiology Impression Echocardiogram 04/29/23 00:35 Interpretation Summary The estimated ejection fraction is 60 %. Stage 1 diastolic dysfunction. Mild (1+) mitral valve insufficiency. Moderate pulmonary hypertension. Moderate global right ventricular systolic dysfunction. The right atrium is mildly enlarged. Ordering Physician: Marixa Gama Referring Physician: ELIAZAR BENITO Performed By: Brenda Carpenter RCS Rhythm Strip Rhythm Strip: Sinus Rhythm Physical Exam Narrative Physical Examination: General: Awake, alert, oriented x 3 and cooperative, laying on her side in the PCU bed, fatigued but notes feeling improved, no chest pain or dyspnea. Skin: Normal color, normal turgor, no icterus, no cyanosis except occasional staged ecchymoses especially to the extremity. HEENT: AT/NC, EOMI, PERRLA, mildly dry MM. Lungs: Mildly diminished, greater bases, mildly increased respiratory rate but no distress, no appreciated rales, ronchi or wheezing. Heart: Currently regular rate and rhythm; no gallop, rub audible. Abdomen: Soft, NTTP, ND, mildly hyperactive BS. Extremities: No cyanosis, clubbing, or marked edema. Neurological: Patient awake, alert, oriented as noted, cognitive function intact; pupils equally reactive to light and accommodation, cranial nerves II- XII grossly normal, moving all 4 extremities, no focal deficits, strength mildly to moderately Decreased secondary to acute present patient, improved however since initial ED arrival. Psychiatric: Affect appears fatigued otherwise normal, no acute evidence of depressive or anxiety feelings. Assessment & Plan Assessment/Plan (1) Paroxysmal atrial fibrillation: PLAN: Plan The patient is a 67 y/o F w/ PMHx: PAF on coumadin, Chronic anemia/Fe deficiency anemia, HTN, HLD, Tobacco use, COPD, Chronic back pain s/p cervical neck surgery who presents to the [facility] ED on 04/28/23 with history of #1. Chest Pain w/ Acute NSTEMI, unclear type with notable ST EKG changes in the setting of #2: EKG in ED w/ initial atrial fibrillation with RVR with rate [address] depression significant 3V3 to V6 not present on 01/2023 EKG which demonstrated atrial fibrillation with RVR of similar rate at that time with also slight elevation in aVR with follow-up EKG after conversion to sinus rhythm with no ST elevation depressions, CXR w/ no acute cardiopulmonary findings. Initial troponin 12 with trending performed--> 71--> 897. Admitted to PCU, maintained on telemetry monitoring, serial cardiac enzymes obtained as noted, magnesium 1.9, TSH 0.87, Coumadin held and patient ministered vitamin K with repeat INR trending pending cardiology evaluation, fortunately converted to sinus rhythm the ED following administration of amiodarone bolus with continued oral metoprolol regimen, maintained on daily baby aspirin, metoprolol, high dose ator vastatin, from records given low BP Entresto held temporarily, 04/29/23 ECHO w/ EF 60%, stage I diastolic dysfunction, mild MVI, moderate pulmonary hypertension, moderate global RV systolic dysfunction, mildly enlarged RA. #2. Paroxysmal atrial fibrillation w/ RVR with suspected volume overload ass ociated with elevated BNP: EKG in ED w/ initial atrial fibrillation with RVR with rate [address] depression significant 3V3 to V6 not present on 01/2023 EKG which demonstrated atrial fibrillation with RVR of similar rate at that time with also slight elevation in aVR with follow-up EKG after conversion to sinus rhythm with no ST elevation depressions, CXR w/ no acute cardiopulmonary findings. Initial troponin 12 with trending performed--> 71--> 897. Patient as noted above administered amiodarone bolus. Maintain on telemetry, cardiac enzymes increased as noted above, magnesium normal, TSH normal, repeat echocardiogram requested. Coumadin temporarily held and low-dose of vitamin K administered per admitting hospitalist for suspected need for cardiac catheterization especially given EKG changes noted. 04/29/23 ECHO w/ EF 60%, stage I diastolic dysfunction, mild MVI, moderate pulmonary hypertension, moderate global RV systolic dysfunction, mildly enlarged RA. Patient initiated o n Lasix 40 mg IV twice daily, will continue pending cardiology evaluation. #3. Chronic COPD with noted erythrocytosis likely related with ongoing tobacco use, possibly hypoxia at night: Not on any chronic regimen, encourage tobacco cessation, will maintain on oxygen with wean as tolerated to room air especially at night, continue ATC budesonide, PRN albuterol, HOB, IS parameters. #4. Hypertension: Continue home regimen including metoprolol, IV Lasix as noted above, temporally holding Entresto as BP low normal range, add back once appropriate, PRN hydralazine. #5. Hyperlipidemia: Initiated on high dose statin therapy, FLP with TG 60, TChol 143, LDL 79, VLDL 12, HDL 52. #6. Tobacco Abuse: Encouraged cessation, inpatient consultation per RT, NR if desired. #7. DVT prophylaxis: Recent low-dose vitamin K administration of 5 mg with INR upon presentation 3.3, 04/29/2023 INR 2.7, continue to trend. #8. CODE STATUS: Full code.
[2023-04-30 06:15] LABS: AST(SGOT) 24 U/L (15-37); Alanine Aminotransfer ALT/SGPT 36 U/L (13-56); Alkaline Phosphatase 57 U/L (45-117); Anion Gap 2 (5-15); BUN 8 mg/dL (7-18); BUN/Creat Ratio 10.7 RATIO (10-20); Calcium,Total 8.3 mg/dL (8.5-10.1); Chloride 103 mmol/L (98-107); Creatinine, Serum 0.74 mg/dL (0.55-1.02); EST Glomerular Filtration Rate 82 mL/min (>60); Est Glom Filt Rate - Afr Amer 99 mL/min (>60); Estimated Creatinine Clearance 45.85 ml/min; Globulin 3.1 g/dL (2.2-4.2); Glucose 109 mg/dL (74-106); Protein, Total 6.1 g/dL (6.4-8.2); Sodium Level 139 mmol/L (136-145)
[2023-04-30] MEDS: Aspirin E.C. 81 MG Tablet PO (06:41)
[2023-04-30] MEDS: Metoprolol(XL)Succ 50 MG Tablet PO (06:41)
--- NOTE | 2023-04-30 07:37 | CPS ---
patient weaned to 2 lpm.
--- NOTE | 2023-04-30 10:22 | CL.D_ITS ---
Patient Name: JANENE ALBARRAN Study Date: 04/30/2023 Performing: Parker Lee MD Ht: 64 inches 162.56 cm : 1955 Wt: 139.99 lbs 63.5 kg Age: 67 Gender: female BSA: 1.68 PROCEDURE(S) PERFORMED [id number])[facility] CLINICAL PROFILE AND INDICATIONS Indications: ACS > 24 hrs Heart Failure: None Angina Classification Anginal Classification w/in 2 Weeks: CCS IV CAD Presentations: Non-STEMI. Symptom onset Date/Time: Time Not Available CONCLUSIONS Heavily calcified coronary arteries 60% Mid LAD; 80% ostial major septal 50% Prox OM1; 60% OM2 40-50% RCA, RPDA RECOMMENDATIONS Medical therapy Risk factor modification DESCRIPTION OF PROCEDURE The patient arrived to the procedure lab. The risks and benefits of the procedure as well as a full description of our services here and current unavailability of surgical backup were fully explained to the patient and/or their significant other prior to the catheterization. The Timeout was completed, verifying the correct patient and procedure. The patient's procedural site was prepped and draped in the usual fashion. Local anesthetic was given subcutaneously to right radial region with Lidocaine 2%. Using a modified Seldinger technique, arterial access was obtained via the right radial artery, a 6Fr sheath was inserted. Left Coronary Artery selective angiography was performed in multiple views using a 5 Fr. 4.0 Glad[place] catheter. Right Coronary Artery selective angiography was then performed in multiple views using a 5 Fr. 4.0 [place] catheter.The arterial sheath was pulled and a TR Band was applied for hemostasis CORONARY ANGIOGRAPHY DOMINANCE: Right Dominant LEFT MAIN: Calcified but no significant stenosis LEFT ANTERIOR DESCENDING ARTERY: LAD: Calcified 60% Mid lesion in LAD OM 1: Tubular 50% Proximal lesion in 1st OM Tubular 50% Mid lesion in 1st OM RIGHT CORONARY ARTERY: RCA: Tubular 40% Proximal lesion in RCA RT PDA: Tubular 50% Mid lesion in Right PDA COMPLICATIONS No Complications PROCEDURE MEDICATIONS Fentanyl 25 mcg IV Versed 0.5 mg IV Fentanyl 25 mcg IV Versed 0.5 mg IV Oxygen: 2 L/min via nasal cannula Heparin given IA 04/30/2023 09:45:10 Verapamil 2.5mg, Ntg 200mcgs, 2000 units of Heparin given IA 04/30/2023 09:45:10 IV Bolus: .9 NaCl 250 ml total 04/30/2023 09:55:48 SUMMARY OF HEMODYNAMIC DATA Time AIR REST AO 152/86 (113) SA 09:53:26 ECG 10:17:21 10:17:21 Signed By Parker Lee MD On 04/30/2023 10:21:24 Parker Lee MD
--- NOTE | 2023-04-30 10:45 | CASEMGMT ---
RN STELLA Face to Face with patient for initial transition planning/care coordination assessment. RN CM introduced self and role at [facility]. Patient lying in bed, alert and oriented, at bedside. Patient willing to participate in assessment and is able to answer all questions appropriately. Care providers, pharmacy, and demographics verified. Patient wishes to discharge home, denies need for home health at this time. Patient states she has no further needs or concerns at this time. CM to follow for discharge planning needs that may arise. PCP: Denis Specialists: Jensen, hot man Joyce; Treasury Representative Jocelin Cook Preferred Pharmacy: [facility] Insurance: [employer] [facility] Prescription Benefit: yes Living Will/HPOA: yes, Allan Vasquez HPOA LNOK: [facility] Living Arrangements: Patient lives with in a 2 story home with bed and bath on first floor. Patient states she is independent at home Transportation: self, DME/HHC: Patient has raised toilet, cane, walker, grab bars, nebulizer, pulse ox and home oxygen through [employer] at 2lpm continuously but patient states she has not been needing it. No previous HHC or SNF. states he will bring oxygen tank at home. Disposition Plan: Patient to discharge home with family support and follow-up plans in place. Jacy CANTU, RN, CM
[2023-04-30] MEDS: Furosemide 20 MG Tablet PO (10:49)
[2023-04-30] MEDS: amLODIPine 2.5 MG Tablet PO (10:49)
[2023-04-30] MEDS: Ferrous Sulfate 325 MG Tablet PO (10:49)
[2023-04-30] MEDS: Cholecalciferol (VIT D3) 25 MCG TABLET (1,000 UNITS) 50 MCG PO (10:49)
[2023-04-30] MEDS: Acetaminophen 325 MG Tablet 650 MG PO (10:50)
[2023-04-30] MEDS: SACUBITRIL/VALSARTAN 24/26 MG TABLET 1 EACH PO (10:50)
--- NOTE | 2023-04-30 10:51 | PCM.DC.SUM ---
Providers Date of Admission: 04/29/23 Date of Discharge: 04/30/23 Primary Care Physician: Dr. Michelle Barrios, Consultations 04/29/23 00:35 Consult: Cardiology Routine Consulting Provider: Parker Lee Reason for Consult: NSTEMI EMERGENT Consult: No MD Notified: Yes Date Notified: 04/29/23 Time Notified: 06:52 Method of Notification: Text Reason For Visit: CHEST PAIN/AFIB WITH RVR Diagnosis Discharge Diagnosis (1) Paroxysmal atrial fibrillation: Status: Acute Code(s): I48.0 - Paroxysmal atrial fibrillation Plan: Discharge Diagnoses: #1. Chest Pain w/ Acute NSTEMI, unclear type with notable ST EKG changes in the setting of #2 #2. Paroxysmal atrial fibrillation w/ RVR with suspected volume overload associated with elevated BNP #3. Chronic COPD with noted erythrocytosis likely related with ongoing tobacco use, Chronic Hypoxic Respiratory Failure (2L NC) #4. Hypertension #5. Hyperlipidemia #6. Tobacco Abuse #7. CODE STATUS: Full code. Medications at Discharge Home Medications albuterol sulfate 90 mcg/actuation aerosol inhaler (ProAir HFA) 1 puff inhalation Q4H PRN PRN Sob &/Or Wheezing 04/21/16 ferrous sulfate 325 mg (65 mg iron) tablet 325 mg PO DAILY anemia 01/18/23 sacubitril 24 mg-valsartan 26 mg tablet (Entresto) 1 tab PO BID heart 01/18/23 cholecalciferol (vitamin D3) 50 mcg (2,000 unit) capsule 50 mcg PO DAILY supplement 04/29/23 warfarin 5 mg tablet 5 mg PO DAILY blood thinner 04/29/23 amlodipine 2.5 mg tablet 2.5 mg PO DAILY 30 days #30 tabs 04/30/23 aspirin 81 mg tablet,delayed release 81 mg PO DAILY@0800 30 days #30 tabs 04/30/23 atorvastatin 20 mg tablet 20 mg PO QHS 30 days #30 tabs 04/30/23 furosemide 20 mg tablet 20 mg PO BID edema 30 days #60 tabs 04/30/23 metoprolol succinate 50 mg tablet,extended release 24 hr 50 mg PO BID 30 days #60 tabs 04/30/23 Hospital Course Operations None Procedures 2-D Echocardiogram and Cardiac catheterization Summary of Care Provided Minutes Spent on Discharge: 35 Hospital Course: The patient is a 67 y/o F w/ PMHx: PAF on coumadin, Chronic anemia/Fe deficiency anemia, HTN, HLD, Tobacco use, COPD, Chronic back pain s/p cervical neck surgery who presented to the [facility] ED on 04/28/23 with history of chest pain and irregular heart rate. In the ED EKG in ED w/ initial atrial fibrillation with RVR with rate [address] depression significant 3V3 to V6 not present on 01/2023 EKG which demonstrated atrial fibrillation with RVR of similar rate at that time with also slight elevation in aVR with follow-up EKG after conversion to sinus rhythm with no ST elevation depressions, CXR w/ no acute cardiopulmonary findings. Initial troponin 12 with trending performed--> 71--> 897. Admitted to PCU, maintained on telemetry monitoring, serial cardiac enzymes obtained as noted, magnesium 1.9, TSH 0.87. Coumadin held and patient ministered vitamin K with repeat INR normalized. Patient fortunately converted to sinus rhythm the ED following administration of amiodarone bolus with continued oral metoprolol regimen which was increased per cardiology with addition also of atorvastatin, amlodipine, daily baby aspirin and initially Entresto held secondary to low normal BP but increased therefore this was added at discharge again. 04/29/23 ECHO w/ EF 60%, stage I diastolic dysfunction, mild MVI, moderate pulmonary hypertension, moderate global RV systolic dysfunction, mildly enlarged RA. 04/30/23 cardiac catheterization with heavily calcified coronary arteries, 60% mid LAD, 80% ostial major septal, 50% proximal OM1, 60% OM 2, 40 to 50% RCA, RPDA with strong recommendation for medical therapy and risk factor modification with medication regimen changes as noted above. Clarified at length with patient and she does have chronic supplemental oxygen at home and although she denies she supposed to be using it from appearance in the room do suspect that likely she needs it chronically, will continue supplemental oxygen, encourage tobacco cessation, continue ATC budesonide, PRN albuterol, HOB, IS parameters. Cardiology cleared patient for discharge to home following cardiac catheterization with early PCP and cardiology follow-up outpatient. Weight / BMI Weight Weight: 139 lb 15.896 oz Body Mass Index (BMI) 24.0 ABG / Lab / Microbiology Data 04/30/23 05:28 04/30/23 05:28 Laboratory: Laboratory Results - last 24 hr 04/30/23 05:28: WBC 6.7, RBC 5.41 H, Hgb 16.9 H, Hct 55.3 H, MCV 102.2 H, MCH 31.2, MCHC 30.6 L, RDW Std Deviation 59.6 H, RDW Coeff of Sarah 15.9 H, Plt Count 192, MPV 9.9, Immature Gran % (Auto) 0.300, Neut % (Auto) 71.0 H, Lymph % (Auto) 15.0 L, [place] % (Auto) 10.0, Eos % (Auto) 2.7, Baso % (Auto) 1.0, Absolute Neuts (auto) 4.7, Absolute Lymphs (auto) 1.00, Nucleated RBC % 0, PT 15.2 H, INR 1.2, Sodium 139, Potassium 4.0, Chloride 103, Carbon Dioxide 34.0 H, Anion Gap 2 L, BUN 8, Creatinine 0.74, Estim Creat Clear Calc 45.85, Est GFR (MDRD) Af Amer 99, Est GFR (MDRD) Non-Af 82, BUN/Creatinine Ratio 10.7, Glucose 109 H, Calcium 8.3 L, Total Bilirubin 0.40, AST 24, ALT 36, Alkaline Phosphatase 57, Total Protein 6.1 L, Albumin 3.0 L, Globulin 3.1, Albumin/Globulin Ratio 1.0 Radiography Diagnostic Testing: Radiology Impression Echocardiogram 04/29/23 00:35 Interpretation Summary The estimated ejection fraction is 60 %. Stage 1 diastolic dysfunction. Mild (1+) mitral valve insufficiency. Moderate pulmonary hypertension. Moderate global right ventricular systolic dysfunction. The right atrium is mildly enlarged. Ordering Physician: Marixa Gama Referring Physician: MICHELLE BARRIOS Performed By: Brenda Carpenter RCS D/C Instructions Discharge Diet: Low fat / Low cholesterol May resume sexual activity in: 10-14 days Weight Bearing Status: Weight bearing as tolerated Keep extremity elevated above heart level: Operative Extremity Call your doctor if your incision/area has: Sudden Increased Bleeding, Increased Pain/ Swelling, Foul Smelling Discharge and Swelling at the incision site Call your doctor if you observe: Fever of 101 or Higher, Shortness of breath, Chest pain, Increased palpitations (irregular heartbeat) and Uncontrolled pain Meaningful Use Info Meaningful Use Diagnoses (Choose all that apply): AMI AMI/Post PCI/Angioplasty Aspirin given w/in 24hrs of arrival?: Yes ASA at discharge?: Yes Antiplatelet Therapy at Discharge:: No Reason Antiplatelet Therapy not ordered:: Per Dr. Lee discretion, d/c on ASA 81. Statins at discharge?: Yes Joesph/ARB at discharge?: Yes Beta Alejandro at discharge?: Yes Done w/ Acute WI measure.: Yes Documented LVEF (%): 60 Discharge Plan Admission Admit Date/Time: 04/29/23 15:43 Primary Reason for Your Visit: NSTEMI w/ heavily calcified coronary arteries, PAF w/ RVR w/ overload Attending Provider: Marion Muñiz Primary Care Provider: Michelle Barrios Consulting Providers: Marixa Gama; Parker Lee Instructions Additional Instructions / Restrictions: DISCHARGE INSTRUCTION: CARDIOLOGY PCI CATH INSTRUCTIONS Lifting: Must be less than 5 lbs for 5 days, No restrictions after 14 days Shower: Yes Climb stairs: Yes Bathing in tub or submerged water: No, until cleared per Cardiology at follow-up (call office if any concerns [phone] and may leave voicemail if after hours). Walkin minutes 3 times daily, increase as tolerated. Driving: Resume in 7 days Sexual activity: Resume in 14 days Regular activity: Resume 14 days NEW MEDICATIONS: During your admission your metoprolol and a low-dose statin therapy was added in addition to a baby daily aspirin secondary to notable coronary artery disease. Fortunately at this time no stenting was necessary but significant lifestyle recommendations need to be instituted. We strongly recommend complete tobacco cessation. In addition a low-dose amlodipine was also started to assist with blood pressure and help control chest discomfort. Recurrent discomfort please do not hesitate to return to the ED for evaluation or you may also contact the cardiology office prior to your follow-up visit. Discharge Orders/Prescriptions Prescriptions: New atorvastatin 20 mg Tablet 20 mg PO QHS 30 Days Qty: 30 0RF metoprolol succinate 50 mg Tablet Extended Release 24 Hr 50 mg PO BID 30 Days Qty: 60 0RF amlodipine 2.5 mg Tablet 2.5 mg PO DAILY 30 Days Qty: 30 0RF aspirin 81 mg Tablet,Delayed Release (Dr/Ec) 81 mg PO DAILY@0800 30 Days Qty: 30 0RF Continued albuterol sulfate [ProAir HFA] 1 PUFF inhaler 1 puff inhalation Q4H PRN PRN (Reason: Sob &/Or Wheezing) Patient Comments: breathing Entresto 24-26 mg tablet 1 tab PO BID Patient Comments: TAKE 1 TABLET BY MOUTH TWICE A DAY ferrous sulfate 325 mg (65 mg iron) tablet 325 mg PO DAILY Patient Comments: TAKE 1 TABLET BY MOUTH EVERY OTHER DAY WITH FOOD cholecalciferol (vitamin D3) 50 mcg (2,000 unit) capsule 50 mcg PO DAILY Patient Comments: TAKE 1 CAPSULE BY MOUTH EVERY DAY warfarin 5 mg tablet 5 mg PO DAILY Patient Comments: PLEASE SEE ATTACHED FOR DETAILED DIRECTIONS Changed furosemide 20 mg tablet 20 mg PO BID 30 Days Qty: 60 0RF Patient Comments: TAKE 1 TABLET BY MOUTH EVERY DAY Discontinued metoprolol succinate 50 mg tablet extended release 24 hr 50 mg PO DAILY Patient Comments: TAKE 1 TABLET BY MOUTH EVERY DAY Referrals / Follow Up: Parker Lee MD [Med Staff - Active Staff] - (Follow-up in the office in 2-4 weeks, may see [facility].) Michelle Barrios DO [Primary Care Provider] - (Follow-up within 1-2 days for INR and in 3-5 days to review admission.) Disposition Disposition (needs filled in before D/C Order can be placed): Home, Self Care Charges/Coding Visit Charges Inpatient E&M: 42709 Disch Hosp >30min
== END 2023-04-30 16:09 | disposition home or self-care (01) | DRG 281 ==
LOC: ED 21:57 → PCU 04-29 04:40
PROVIDERS: Admitting Provider Internal Medicine; Emergency Provider Student in an Organized Health Care Education/Training Program; Visit Provider Family Medicine
DX: I21.4 Non-ST elevation (NSTEMI) myocardial infarction (principal); J96.11 Chronic respiratory failure with hypoxia; I50.30 Unspecified diastolic (congestive) heart failure; I27.20 Pulmonary hypertension, unspecified; I95.9 Hypotension, unspecified; E87.70 Fluid overload, unspecified; J43.9 Emphysema, unspecified; I25.119 Atherosclerotic heart disease of native coronary artery with unspecified angina pectoris; I48.0 Paroxysmal atrial fibrillation; I10 Essential (primary) hypertension; I34.0 Nonrheumatic mitral (valve) insufficiency; I25.84 Coronary atherosclerosis due to calcified coronary lesion; E78.5 Hyperlipidemia, unspecified; M54.9 Dorsalgia, unspecified; F17.210 Nicotine dependence, cigarettes, uncomplicated; Z99.81 Dependence on supplemental oxygen; G89.29 Other chronic pain; R73.9 Hyperglycemia, unspecified; Z79.01 Long term (current) use of anticoagulants; Z79.82 Long term (current) use of aspirin; Z79.899 Other long term (current) drug therapy
CPT/HCPCS: 36415; 71045; 80048; 80053; 80061; 83036; 83735; 83880; 84100; 84443; 84484; 85025; 85610; 93005; 93306; 93454; 94668; 99152; 99153; 99252; 99285; 99406; J7030; J7040; Q9967; A4216; C1769; C1894; G0463; J1940; J3490

== ENCOUNTER 2024-08-30 14:21 | Inpatient (IN) | payer MEDICARE, SELFPAY ==
[2024-08-30] VITALS (24 sets, daily range): BP systolic 57–133; BP diastolic 33–90; PULSE 52–138; RESP 15–26; TEMP 36.6–36.7; O2SAT 90–100; BMI 25.7; BMI 28.0
--- NOTE | 2024-08-30 14:27 | CT_ITS ---
EXAM: CT ANGIOGRAPHY CHEST WITHOUT AND WITH INTRAVENOUS CONTRAST CLINICAL INDICATION: back pain -- r/o dissection TECHNIQUE: Helically acquired angiography images were obtained of the chest without and with intravenous contrast. This CT exam was performed using one or more of the following dose reduction techniques: automated exposure control, adjustment of the mA and/or kV according to patient size, and/or use of iterative reconstruction technique. MIP reconstructed images were created and reviewed. CONTRAST: IV 100mL [id number] RADIATION DOSE: CTDIvol = 14.13 mGy, DLP = 546.49 mGy-cm COMPARISON: No relevant prior studies available. FINDINGS: PULMONARY ARTERIES: Unremarkable. Normal in caliber. No evidence of pulmonary embolism. AORTA: Unremarkable. Normal in caliber. No evidence of dissection. GREAT VESSELS OF AORTIC ARCH: Unremarkable. Normal in caliber. No evidence of dissection. LUNGS AND PLEURAL SPACES: Thin-walled cyst in the right lung base. Breathing motion artifacts in the lung bases. No interstitial infiltrates, consolidation or edema. No mass. No pleural effusion or thickening. No pneumothorax. HEART: Prominent calcified plaques in the proximal LAD branch and minimal calcified plaques in the left circumflex branch. Minimal calcified plaques in the right coronary artery. Normal cardiac size. Normal pericardium. Heart size is normal. MEDIASTINUM: Unremarkable. No mediastinal or hilar adenopathy. Esophagus is unremarkable. No hiatal hernia. THYROID: Unremarkable. No thyroid lesions. BONES/JOINTS: Moderate old anterior wedge compression fracture of the upper T7 vertebral body. Mild degenerative anterolisthesis of C7 on T1 and T2 on T3. Pronounced disc space height narrowing with endplate sclerosis and degenerative vacuum phenomenon at L1-L2 and L2-L3 disc space levels. No suspicious lytic or blastic abnormality. SOFT TISSUES: Bilateral breast implants in place. KIDNEYS AND URETERS: Long segment severe stenosis of the left renal artery with minimal arterial flow to the atrophic left kidney. No contrast enhancement or nephrogram in the left atrophic kidney. Normal right kidney with normal right nephrogram. No stones or hydronephrosis in both kidneys. Celiac artery: High-grade stenosis of the noncalcified plaques or noncalcified plaques with poststenotic dilatation. SMA: No significant stenosis. Right renal artery: No significant stenosis. Left renal artery: Long segment severe stenosis CT/CTA Chest W/WO Contrast IMPRESSION: 1. No CTA evidence of pleural with thromboemboli, thoracic aortic aneurysm or dissection. 2. No CT evidence of pneumonia. 3. Moderate old anterior wedge compression fracture of the upper T7 vertebral body and mild degenerative anterolisthesis of C7 on T1 and T2 on T3. 4. Long segment severe stenosis of the left renal artery with minimal arterial flow to the left kidney and no contrast enhancement or nephrogram of the left atrophic kidney. 5. Normal right kidney with normal right nephrogram. 6. Prominent calcified plaques in the proximal LAD branch and fewer calcified plaques in the circumflex branch and right coronary artery. 7. 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 Electronically Signed: Jarrod Traylor MD at 15:53 EST ,
--- NOTE | 2024-08-30 14:27 | EKG12_ITS ---
Test Reason : BACK PAIN Blood Pressure : */* mmHG Vent. Rate : 133 BPM Atrial Rate : * BPM P-R Int : * ms QRS Dur : 84 ms QT Int : 330 ms P-R-T Axes : * -27 153 degrees QTcB Int : 491 ms Atrial fibrillation with rapid ventricular response Minimal voltage criteria for LVH, may be normal variant ( Mono product ) Marked ST abnormality, possible inferior subendocardial injury Marked ST abnormality, possible anterolateral subendocardial injury Abnormal ECG Confirmed by SELVIN JONES, RAMYA ([id number]), clinical editor DANA MOSS ([id number]) on 09/01/2024 9:36:16 AM Referred By: BARAK Confirmed By: RAMYA MONTALVO MD
[2024-08-30] MEDS: Midazolam 2 MG/2 ML Syringe IV (14:33)
--- NOTE | 2024-08-30 14:35 | CPS ---
Patient sedated for cardioversion. Respiratory rate decreased and sats dropped into 80's. Jaw thrust held, then patient was bagged at 100% with Dr. Jones at bedside. Patient started breathing more regularly and bag mask was removed. Patient on 5 lpm, patient has 3lpm o2 at home.
[2024-08-30] MEDS: 0.9% Normal Saline (1000mL) 1,000 ML 999 ML IV ×3 (14:48→16:05)
--- NOTE | 2024-08-30 14:48 | EDS_ITS ---
HPI History of Present Illness Chief Complaint: Chest Pain Informant: patient, spouse/S.O. and EMS Narrative Narrative: Brought by EMS spouse is present sudden upper back pain an hour prior to arrival. Patient states mainly in the back possibly mild in the front initially however later states no chest pains. History of COPD on chronic 3 L oxygen. No recent illness no cough. History of A-fib on Eliquis last dose this morning. So metoprolol 50 mg once a day. Took it this morning. No vomiting or diarrhea. EMS arrival EKG was sent A-fib with RVR however noted ST depressions inferior lateral leads there was potential aVR elevation. Status post aspirin and 1 nitro by EMS there is no improvement with nitro. They gave her 50 mcg of fentanyl prior to her arrival states pain currently a 5. Reported blood pressure in the squad was systolic 180s. Per spouse patient had a heart cath at [facility] approximately 18 months ago there was no stenting placed however she was put on baby aspirin. She is followed by Ana practitioner through cardiology at [place]. Reviewing her medication she is on furosemide per spouse confirming some cardiomyopathy history. This medication was started this past October. Prior similar symptoms: No PFSH PFSH Medical History Atherosclerotic heart disease of [place] coronary artery with unstable angina pectoris Paroxysmal atrial fibrillation Nicotine dependence Severe chronic obstructive pulmonary disease Osteoarthritis Degenerative disc disease Tobacco abuse Chronic anticoagulation Afib Hypertension History of emphysema Acute bronchitis, unspecified Home Medications ?Medication ?Instructions ?Recorded ?Last Taken ?Type albuterol sulfate 90 mcg/actuation 1 puff inhalation Q4H PRN PRN Sob 04/21/16 Unknown History aerosol inhaler (ProAir HFA) &/Or Wheezing ferrous sulfate 325 mg (65 mg 325 mg PO DAILY anemia 01/18/23 Unknown History iron) tablet sacubitril 24 mg-valsartan 26 mg 1 tab PO BID heart 01/18/23 Unknown History tablet (Entresto) cholecalciferol (vitamin D3) 50 50 mcg PO DAILY supplement 04/29/23 Unknown History mcg (2,000 unit) capsule aspirin 81 mg tablet,delayed 81 mg PO DAILY@0800 30 days #30 04/30/23 Unknown Rx release tabs atorvastatin 20 mg tablet 20 mg PO QHS 30 days #30 tabs 08/25/23 Unknown Rx metoprolol succinate 50 mg 50 mg PO BID 30 days #60 tabs 04/30/23 Unknown Rx tablet,extended release 24 hr apixaban 5 mg tablet (Eliquis) 5 mg PO BID 08/30/24 Unknown History fluticasone fur. 100 mcg-umeclid 1 ea inhalation DAILY wheezing 08/30/24 Unknown History 62.5 mcg-vilant 25 mcg inhalat.powder (Trelegy Ellipta) torsemide 20 mg tablet 20 mg PO DAILY 08/30/24 Unknown History Allergy/AdvReac Type Severity Reaction Status Date / Time No Known Allergies Allergy Verified 08/30/24 14:22 Family History Other CAD (coronary artery disease) Heart disease Hypertension Surgical History H/O adenoidectomy Hx of tonsillectomy History of appendectomy Total knee replacement status Hx of neck surgery Social History household members: spouse housing: house Smoking Status: Current every day smoker tobacco type: cigarettes alcohol intake: current alcohol intake frequency: holidays/special occasions only substance use type: does not use ROS ROS ED Constitutional Constitutional ED: Denies chills, fever(s) or sweats ENT ENT ED: Denies sore throat Cardiovascular Cardiovascular: Denies chest pain, leg edema, palpitations or racing heartbeat Respiratory/Chest Respiratory/Chest: Denies cough, dyspnea or dyspnea on exertion Gastrointestinal Gastrointestinal: Denies abdominal pain, diarrhea, nausea or vomiting Genitourinary Genitourinary ED: Denies dysuria, hematuria or urinary frequency Musculoskeletal Musculoskeletal: Reports back pain; Denies extremity pain or neck pain Integumentary Denies rash or wounds Neurologic Neurologic: Denies headache(s), paresthesias or weakness EXAM Physical Exam Const Vital Signs: 08/30/24 14:23 08/30/24 14:28 08/30/24 14:30 Temperature 98 F Temperature Source Temporal Pulse Rate 133 H 121 H Respiratory Rate 25 H 23 H Respiratory Effort Blood Pressure 61/47 L 57/33 L Blood Pressure Mean 51 41 Pulse Ox 91 92 Oxygen Delivery Method Nasal Cannula Nasal Cannula Nasal Cannula Oxygen Flow Rate (L/min) 4 4 EtCo2 (Normal 35-45 , high quality CPR 10-20 & ROSC>/=40mmHg 08/30/24 14:35 08/30/24 14:35 08/30/24 14:39 Temperature Temperature Source Pulse Rate 130 H Respiratory Rate 19 H Respiratory Effort Blood Pressure 98/84 H 69/56 L Blood Pressure Mean 88 60 Pulse Ox 92 Oxygen Delivery Method Nasal Cannula Oxygen Flow Rate (L/min) 4 EtCo2 (Normal 35-45 , high quality CPR 10-20 & ROSC>/=40mmHg 29 08/30/24 14:40 08/30/24 14:43 08/30/24 14:44 Temperature Temperature Source Pulse Rate 138 H 112 H Respiratory Rate 21 H Respiratory Effort Non-Labored Short of Breath Blood Pressure 76/62 L Blood Pressure Mean 66 Pulse Ox 96 Oxygen Delivery Method Nasal Cannula Oxygen Flow Rate (L/min) 5 EtCo2 (Normal 35-45 , high quality CPR 10-20 & ROSC>/=40mmHg 08/30/24 14:50 08/30/24 14:54 08/30/24 15:15 Temperature Temperature Source Pulse Rate 118 H Respiratory Rate 17 Respiratory Effort Blood Pressure 109/90 H 91/62 Blood Pressure Mean 96 72 Pulse Ox 95 95 Oxygen Delivery Method Nasal Cannula Nasal Cannula Oxygen Flow Rate (L/min) 5 5 EtCo2 (Normal 35-45 , high quality CPR 10-20 & ROSC>/=40mmHg 08/30/24 15:25 08/30/24 15:38 08/30/24 16:15 Temperature Temperature Source Pulse Rate 115 H 81 92 Respiratory Rate 21 H 18 26 H Respiratory Effort Blood Pressure 91/62 79/63 L 96/65 Blood Pressure Mean 71 68 76 Pulse Ox 90 93 94 Oxygen Delivery Method Oxygen Flow Rate (L/min) 3 5 3 EtCo2 (Normal 35-45 , high quality CPR 10-20 & ROSC>/=40mmHg 08/30/24 16:25 Temperature Temperature Source Pulse Rate Respiratory Rate Respiratory Effort Blood Pressure Blood Pressure Mean Pulse Ox 92 Oxygen Delivery Method Nasal Cannula Oxygen Flow Rate (L/min) 3 EtCo2 (Normal 35-45 , high quality CPR 10-20 & ROSC>/=40mmHg Positive well nourished and well developed Constitutional Narrative: 4 L nasal cannula, alert, pale General Appearance ED: well developed and NAD HEENT Reports moist mucous membranes normocephalic and atraumatic Eyes General Eye ED: Yes normal appearance of both eyes and pale conjunctiva Neck full ROM Chest Wall Chest: Negative for tenderness Resp normal respiratory effort and normal air movement Effort and Inspection: symmetric chest movement; Negative for respiratory distress Cardio no murmurs Rate: tachycardic Rhythm: abnormal rhythm Peripheral Pulses: pulses 2+ throughout GI normal to inspection, nondistended, normoactive bowel sounds and non-tender Palpation: Negative for guarding or rebound tenderness present Extremity normal to inspection General Extremety ED: Negative for edema or tenderness General Extremity: Negative for edema Neuro oriented x3 and no sensory deficits noted Sensorium / Orientation: awake and alert Skin no rashes or lesions noted and no wounds MDM MDM MDM Narrative Medical decision making narrative: Interventions / MDM: Differential diagnosis: A-fib with RVR, upper back pain, abnormal EKG Diagnosis considered but do not suspect: Aortic dissection however CT negative. My EKG interpretation: A-fib RVR rate of 133, ST depressions inferior lateral leads. Question aVR elevation. EKG #2: A-fib rate of 88, no ST changes. Imaging independently reviewed and interpreted by myself: CTA chest: No PE no pneumonia. Calcified coronary vessels. Incidental findings of left renal artery stenosis and celiac artery stenosis. External documents reviewed: Cardiac cath April 2023: Heavily calcified coronary arteries 60% Mid LAD; 80% ostial major septal 50% Prox OM1; 60% OM2 40-50% RCA, RPDA Echocardiogram April 2023: EF 60% Test considered but not ordered:N/A ED course: With patient's EKG slight aVR elevation with diffuse depressions I did send it to STEMI physician for evaluation. Did not feel to STEMI, plan was to treat her heart rate with cardiac workup. She has taken her Eliquis. Will send her for CT angiogram to rule out dissection with her upper back pain. Shortly after, was told blood pressure down to 60 systolic. In the room it is maintain the 60s heart rate 130s to 140s she is awake, discussed emergent cardioversion as she is hypotensive. She was given 2 mg Versed to help with sedation. She maintain oxygen. Total 3 shock synchronized was performed initially at 150 then 200 then additional 200. 200 mg cardioversion had brief sinus rhythm however did go right back into A-fib. Pressure still in the 70s. Had brief systolic 90s. IV fluids continued. I read discussed with banquet director, Dr. Mortensen, will start amnio bolus at 300, then Amio drip. Will give fluids. 1530: Initial heart enzyme normal. Lactic acid 1.9 hemoglobin 12.5 white count 8. Platelets 235. Potassium 3.5 sodium 140. Creatinine 0.87. Heart rate 80s to 90s still A-fib blood pressure systolic 90s at this time. Her back pain has resolved with her heart rate being slower. Reviewing records patient actually had a heart cath here in April 2023. 60% mid LAD, 80% ostial, 50% proximal OM1 60% OM 2 4050% RCA. Medical manage at that time. 1538: Heart rate 80s, blood pressure 79/63. Will give additional liter fluid bolus. 1559: No PE no pneumonia. Incidental findings of severe stenosis left renal artery, and stenosis of the celiac artery. 1624: Repeat EKG with symptoms improved resolved ST depressions. Show A-fib rate of 88. Blood pressure systolic 91 in the room. She states stable blood pressure is 110s, she is on amnio drip. Remains symptom-free. Will discuss with hospitalist service for admission. I discussed with Dr. Connell for admission to ICU. Of note patient blood pressure low likely from cardiac dysrhythmia and not sepsis. Re-evaluation: stable Disposition discussed with patient/family/significant other: Patient and significant other Case discussed with consulting clinician: Cardiology., Hospitalist This note was generated with [employer] dictation software. It may contain incorrect words, spelling, and punctuation that were not noted in checking the note before signing. Lab Data Attestation: I reviewed the patient's lab results. Labs: Laboratory Results - last 24 hr 08/30/24 08/30/24 14:40 14:46 WBC 8.0 RBC 4.08 L Hgb 12.5 Hct 39.5 MCV 96.8 MCH 30.6 MCHC 31.6 L RDW Std Deviation 46.1 H RDW Coeff of Sarah 13.0 Plt Count 235 MPV 10.9 Immature Gran % (Auto) 0.100 Neut % (Auto) 60.7 Lymph % (Auto) 27.8 Ponce % (Auto) 7.5 Eos % (Auto) 3.1 Baso % (Auto) 0.8 Absolute Neuts (auto) 4.9 Absolute Lymphs (auto) 2.22 Nucleated RBC % 0 PT 15.1 H INR 1.2 APTT 30.9 Sodium 140 Potassium 3.5 Chloride 101 Carbon Dioxide 34.0 H Anion Gap 5 BUN 16 Creatinine 0.87 Estim Creat Clear Calc 58.24 Est GFR (MDRD) Af Amer 83 Est GFR (MDRD) Non-Af 69 BUN/Creatinine Ratio 18.5 Glucose 182 H Lactic Acid 1.9 Calcium 9.2 Magnesium 1.9 Troponin I High Sens 7 Radiography Diagnostic Testing: Clinical Impression(s) from Imaging Studies Chest CTA 08/30/24 14:27 IMPRESSION: 1. No CTA evidence of pleural with thromboemboli, thoracic aortic aneurysm or dissection. 2. No CT evidence of pneumonia. 3. Moderate old anterior wedge compression fracture of the upper T7 vertebral body and mild degenerative anterolisthesis of C7 on T1 and T2 on T3. 4. Long segment severe stenosis of the left renal artery with minimal arterial flow to the left kidney and no contrast enhancement or nephrogram of the left atrophic kidney. 5. Normal right kidney with normal right nephrogram. 6. Prominent calcified plaques in the proximal LAD branch and fewer calcified plaques in the circumflex branch and right coronary artery. 7. 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 Electronically Signed: Jarrod Traylor MD at 15:53 EST , Critical Care Time Critical Care Time: Yes Critical care time (excluding procedures): 30-74 minutes, Discussing w/Patient &/or Family/Match Maker, Discussing w/Consultants, Arranging Admission or Transfer, Performing Direct Patient Care at Bedside and - (50 minutes) Discharge Plan Dx/Rx/DC Orders Clinical Impression: Atrial fibrillation with rapid ventricular response, Back pain, Abnormal EKG, Encounter for cardioversion procedure, COPD (chronic obstructive pulmonary disease), Chronic hypoxic respiratory failure, on home oxygen therapy Disposition Disposition: Acute Care [facility] Discharge Date/Time: 08/30/24 18:21
[2024-08-30 15:12] LABS: International Normalized Ratio 1.2; Prothrombin Time (Protime)PT. 15.1 SECONDS (11.7-14.9)
[2024-08-30 15:16] LABS: Lactic Acid 1.9 mmol/L (0.4-1.9)
[2024-08-30 15:16] LABS: Anion Gap 5 (5-15); BUN 16 mg/dL (7-18); BUN/Creat Ratio 18.5 RATIO (10-20); Calcium,Total 9.2 mg/dL (8.5-10.1); Chloride 101 mmol/L (98-107); Creatinine, Serum 0.87 mg/dL (0.55-1.02); EST Glomerular Filtration Rate 69 mL/min (>60); Est Glom Filt Rate - Afr Amer 83 mL/min (>60); Estimated Creatinine Clearance 58.24 ml/min; Glucose 182 mg/dL (74-106); Magnesium 1.9 mg/dL (1.6-2.6); Potassium 3.5 mmol/L (3.5-5.1); Sodium Level 140 mmol/L (136-145); Troponin-I HS (w/2H Reflex) 7 pg/mL (3.0-54.0)
[2024-08-30 15:21] LABS: Absolute Lymphocyte Count 2.22 X10^3/uL (0.83-4.51); Absolute Neutrophil Count 4.9 X10^3/uL (2.0-7.7); Basophil# 0.06 X10^3/uL; Basophil% 0.8 % (0-1); Eosinophil# 0.25 X10^3/uL; Eosinophils% 3.1 % (0-5); Hematocrit 39.5 % (37-47); Hemoglobin 12.5 g/dL (12.0-15.0); Lymphocyte # 2.22 X10^3/ul (0.83-4.51); Lymphocyte % 27.8 % (19-41); Mean Corp Hgb Conc 31.6 g/dL (32-36); Mean Corpuscular Hgb 30.6 pg (27.0-32.0); Mean Corpuscular Volume 96.8 fL (81-99); Mean Platelet Vol. 10.9 fl (6.2-12.0); Monocyte% 7.5 % (0-10); NRBC Flagged by Analyzer 0 % (0-5); Neutrophil # 4.86 X10^3/uL (2.7-7.7); Neutrophil % 60.7 % (47-70); Platelet Count 235 K/mm3 (150-450); RBC Distribution Width SD 46.1 fl (35.1-43.9); Red Blood Count 4.08 M/mm3 (4.2-5.4)
[2024-08-30] MEDS: Amiodarone 300 MG in Dextrose 5%-Water (100mL Bag) 100 ML 600 MG IV BOLUS (15:25)
[2024-08-30 15:27] LABS: Partial Thromboplast Time 30.9 Seconds (24.1-36.2)
[2024-08-30] MEDS: Amiodarone 360 MG in Dextrose 5% Viaflo Bag 192.8 ML 33.3 MG CONT INF (15:38)
--- NOTE | 2024-08-30 16:15 | EKG12_ITS ---
Test Reason : REPEAT Blood Pressure : */* mmHG Vent. Rate : 88 BPM Atrial Rate : * BPM P-R Int : * ms QRS Dur : 96 ms QT Int : 378 ms P-R-T Axes : * -15 46 degrees QTcB Int : 457 ms Atrial fibrillation Abnormal ECG Confirmed by SELVIN JONES, RAMYA ([id number]), clinical editor DANA MOSS ([id number]) on 09/01/2024 9:36:30 AM Referred By: Confirmed By: RAMYA MONTAVLO MD
[2024-08-30 16:42] LABS: Reflex Troponin-HS? (from REC) Y
[2024-08-30 17:10] LABS: Bacteria 0 SEEN /hpf (None Seen); Mucous, Urine 0 SEEN /hpf (<or=2+); Red Blood Cells-Urine 0 SEEN /hpf (0-5); Squamous Epithelial Cells - UA 0 SEEN /hpf (5-10); White Blood Cells 0 SEEN /hpf (0-5)
--- NOTE | 2024-08-30 17:10 | HP.PCM.HOS_ITS ---
HPI - General General Date of Admission: 08/30/24 Date of Service: 08/30/24 Chief Complaint: Palpitations HPI Narrative JANENE ALBARRAN, is a 69 F with history of A-fib, COPD on home oxygen at 2 to 3 L/minute heart failure preserved ejection fraction, coronary artery disease, hypertension, who presents to the ED with concerns regarding palpitations and back pain. She has been noticing palpitations with associated shortness of breath since this morning given her history of A-fib with RVR she decided to come to the ED. There is some associated chest pain but no orthopnea/PND,/pedal edema. No recent illnesses There is no fever/nausea/vomiting She continues to smoke, about half pack a day, no other drug use, no alcohol use In the ED Pulse at the time of presentation was 133, systolics dropped to 61/47, she received 2 shocks for cardioversion in the ED. she was started on an amiodarone drip Since the initiation of therapy her blood pressure has improved, and she is feeling overall better. During her last admission on 04/2023 she had a similar presentation and was found to have ST depression significant from V3-V6 and had presented in A-fib with RVR. 04/30/23 cardiac catheterization with heavily calcified coronary arteries, 60% mid LAD, 80% ostial major septal, 50% proximal OM1, 60% OM 2, 40 to 50% RCA, RPDA with strong recommendation for medical therapy and risk factor modification with medication regimen changes as noted above. [facility] Medical History Atherosclerotic heart disease of [place] coronary artery with unstable angina pectoris Paroxysmal atrial fibrillation Nicotine dependence Severe chronic obstructive pulmonary disease Osteoarthritis Degenerative disc disease Tobacco abuse Chronic anticoagulation Afib Hypertension History of emphysema Acute bronchitis, unspecified Home Medications ?Medication ?Instructions ?Recorded ?Last Taken ?Type albuterol sulfate 90 mcg/actuation 1 puff inhalation Q4H PRN PRN Sob 04/21/16 Unknown History aerosol inhaler (ProAir HFA) &/Or Wheezing ferrous sulfate 325 mg (65 mg 325 mg PO DAILY anemia 01/18/23 Unknown History iron) tablet sacubitril 24 mg-valsartan 26 mg 1 tab PO BID heart 01/18/23 Unknown History tablet (Entresto) cholecalciferol (vitamin D3) 50 50 mcg PO DAILY supplement 04/29/23 Unknown History mcg (2,000 unit) capsule warfarin 5 mg tablet 5 mg PO DAILY blood thinner 04/29/23 04/28/23 History amlodipine 2.5 mg tablet 2.5 mg PO DAILY 30 days #30 tabs 04/30/23 Unknown Rx aspirin 81 mg tablet,delayed 81 mg PO DAILY@0800 30 days #30 04/30/23 Unknown Rx release tabs atorvastatin 20 mg tablet 20 mg PO QHS 30 days #30 tabs 04/30/23 Unknown Rx furosemide 20 mg tablet 20 mg PO BID edema 30 days #60 tabs 04/30/23 Unknown Rx metoprolol succinate 50 mg 50 mg PO BID 30 days #60 tabs 04/30/23 Unknown Rx tablet,extended release 24 hr apixaban 5 mg tablet (Eliquis) 5 mg PO BID 08/30/24 Unknown History torsemide 20 mg tablet 20 mg PO DAILY 08/30/24 Unknown History Allergy/AdvReac Type Severity Reaction Status Date / Time No Known Allergies Allergy Verified 08/30/24 14:22 Family History Other CAD (coronary artery disease) Heart disease Hypertension Surgical History H/O adenoidectomy Hx of tonsillectomy History of appendectomy Total knee replacement status Hx of neck surgery Social History household members: spouse housing: house Smoking Status: Current every day smoker tobacco type: cigarettes alcohol intake: current alcohol intake frequency: holidays/special occasions only substance use type: does not use ROS Review of Systems ROS Unobtainable: due to encephalopathy Constitutional Constitutional: Denies anorexia, change in weight, chills, fatigue, fever(s), malaise, night sweats, weakness or other Eyes Eyes: Reports blurry vision; Denies change in eye color, change in vision, discharge from eye(s), double vision, erythema, eye pain, loss of vision or other ENT HEENT: Denies abnormal hearing, dysphagia, ear pain, epistaxis, headache(s), hearing loss, nasal congestion, nasal discharge, post nasal drip, sinus pressure, sore throat or other Cardiovascular Cardiovascular: Reports dyspnea on exertion and palpitations Respiratory/Chest Respiratory/Chest: Denies cough, dyspnea, excessive phlegm production, hemoptysis, productive cough, shortness of breath at rest, shortness of breath with exertion, wheezing or other Gastrointestinal Gastrointestinal: Denies abdominal pain, coffee ground emesis, constipation, diarrhea, dyspepsia, hematemesis, hematochezia, loose stools, melena, nausea, vomiting or other Genitourinary Genitourinary: Denies burning urination, difficulty urinating, dysuria, hematuria, nocturia, urinary frequency, urinary hesitancy, urinary incontinence, urinary urgency or other Musculoskeletal Musculoskeletal: Denies arthralgias, back pain, joint pain, joint stiffness, joint swelling, myalgias, neck pain or other Neurologic Neurologic: Denies abnormal gait, abnormal speech, confusion, disequilibrium, dizziness, focal weakness, headache(s), numbness, paresthesias, seizure-like activity, seizures, syncope, tingling, tremor(s) or other Psychiatric Psychiatric: Denies anxiety, depression, homicidal ideation, suicidal ideation or other Endocrine Endocrinology: Denies change in body appearance, cold intolerance, excessive sweating, heat intolerance, polydipsia, polyuria or other Hematologic/Lymphatic Hematologic/Lymphatic: Denies anemia, easy bleeding, easy bruising, lymphadenopathy or other Allergic/Immunologic Allergic/Immunologic: Denies rhinitis, hives, eczemia, asthma or other Vital Signs Vital Signs Vital Signs: 08/30/24 14:23 08/30/24 14:28 08/30/24 14:30 Temperature 98 F Temperature Source Temporal Pulse Rate 133 H 121 H Respiratory Rate 25 H 23 H Respiratory Effort Blood Pressure 61/47 L 57/33 L Blood Pressure Mean 51 41 Pulse Ox 91 92 Oxygen Delivery Method Nasal Cannula Nasal Cannula Nasal Cannula Oxygen Flow Rate (L/min) 4 4 EtCo2 (Normal 35-45 , high quality CPR 10-20 & ROSC>/=40mmHg 08/30/24 14:35 08/30/24 14:35 08/30/24 14:39 Temperature Temperature Source Pulse Rate 130 H Respiratory Rate 19 H Respiratory Effort Blood Pressure 98/84 H 69/56 L Blood Pressure Mean 88 60 Pulse Ox 92 Oxygen Delivery Method Nasal Cannula Oxygen Flow Rate (L/min) 4 EtCo2 (Normal 35-45 , high quality CPR 10-20 & ROSC>/=40mmHg 29 08/30/24 14:40 08/30/24 14:43 08/30/24 14:44 Temperature Temperature Source Pulse Rate 138 H 112 H Respiratory Rate 21 H Respiratory Effort Non-Labored Short of Breath Blood Pressure 76/62 L Blood Pressure Mean 66 Pulse Ox 96 Oxygen Delivery Method Nasal Cannula Oxygen Flow Rate (L/min) 5 EtCo2 (Normal 35-45 , high quality CPR 10-20 & ROSC>/=40mmHg 08/30/24 14:50 08/30/24 14:54 08/30/24 15:15 Temperature Temperature Source Pulse Rate 118 H Respiratory Rate 17 Respiratory Effort Blood Pressure 109/90 H 91/62 Blood Pressure Mean 96 72 Pulse Ox 95 95 Oxygen Delivery Method Nasal Cannula Nasal Cannula Oxygen Flow Rate (L/min) 5 5 EtCo2 (Normal 35-45 , high quality CPR 10-20 & ROSC>/=40mmHg 08/30/24 15:25 08/30/24 15:38 08/30/24 16:15 Temperature Temperature Source Pulse Rate 115 H 81 92 Respiratory Rate 21 H 18 26 H Respiratory Effort Blood Pressure 91/62 79/63 L 96/65 Blood Pressure Mean 71 68 76 Pulse Ox 90 93 94 Oxygen Delivery Method Oxygen Flow Rate (L/min) 3 5 3 EtCo2 (Normal 35-45 , high quality CPR 10-20 & ROSC>/=40mmHg 08/30/24 16:25 Temperature Temperature Source Pulse Rate Respiratory Rate Respiratory Effort Blood Pressure Blood Pressure Mean Pulse Ox 92 Oxygen Delivery Method Nasal Cannula Oxygen Flow Rate (L/min) 3 EtCo2 (Normal 35-45 , high quality CPR 10-20 & ROSC>/=40mmHg Weight Weight: 154 lb 5.177 oz Body Mass Index (BMI) 25.7 Physical Exam Const alert and oriented x3 HEENT normocephalic Eyes PERRL Neck no lymphadenopathy Resp normal respiratory effort Cardio Cardio Narrative: Irregularly irregular heart rate, pulse 80-100 GI normal to inspection, nondistended, normoactive bowel sounds Extremity normal to inspection Extremity Narrative: No pedal edema Neuro oriented x3 Sensorium / Orientation: awake and alert Results Lab / Micro Data 08/30/24 14:40 08/30/24 14:40 Labs: Laboratory Results - last 24 hr 08/30/24 14:40: WBC 8.0, RBC 4.08 L, Hgb 12.5, Hct 39.5, MCV 96.8, MCH 30.6, M CHC 31.6 L, RDW Std Deviation 46.1 H, RDW Coeff of Sarah 13.0, Plt Count 235, MPV 10.9, Immature Gran % (Auto) 0.100, Neut % (Auto) 60.7, Lymph % (Auto) 27.8, [place] % (Auto) 7.5, Eos % (Auto) 3.1, Baso % (Auto) 0.8, Absolute Neuts (auto) 4.9, Absolute Lymphs (auto) 2.22, Nucleated RBC % 0, PT 15.1 H, INR 1.2, APTT 30.9, Sodium 140, Potassium 3.5, Chloride 101, Carbon Dioxide 34.0 H, Anion Gap 5, BUN 16, Creatinine 0.87, Estim Creat Clear Calc 58.24, Est GFR (MDRD) Af Amer 83, Est GFR (MDRD) Non-Af 69, BUN/Creatinine Ratio 18.5, Glucose 182 H, Calcium 9.2, Magnesium 1.9, Troponin I High Sens 7 08/30/24 14:46: Lactic Acid 1.9 Imaging Radiology Impression Chest CTA 08/30/24 14:27 IMPRESSION: 1. No CTA evidence of pleural with thromboemboli, thoracic aortic aneurysm or dissection. 2. No CT evidence of pneumonia. 3. Moderate old anterior wedge compression fracture of the upper T7 vertebral body and mild degenerative anterolisthesis of C7 on T1 and T2 on T3. 4. Long segment severe stenosis of the left renal artery with minimal arterial flow to the left kidney and no contrast enhancement or nephrogram of the left atrophic kidney. 5. Normal right kidney with normal right nephrogram. 6. Prominent calcified plaques in the proximal LAD branch and fewer calcified plaques in the circumflex branch and right coronary artery. 7. 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 Electronically Signed: Jarrod Traylor MD at 15:53 EST , Assessment & Plan Assessment/Plan (1) History of emphysema: PLAN: Plan 69-year-old female with a history of A-fib on chronic anticoagulation, COPD, heart failure with preserved ejection fraction, hypertension presents to the ED with concerns regarding palpitations and was noted to have A-fib with RVR. She had 1. Of hypotension that required cardioversion and is presently on amiodarone drip. She is being admitted for further evaluation and management. #A-fib with RVR -Rate is controlled with ongoing amiodarone drip -Continue amiodarone and anticoagulation with Eliquis -Continue home beta-theodore, with close monitoring of blood pressure in the ICU -Cardiology consult -Repeat echocardiogram #Coronary artery disease -She had a back pain at the time of presentation, initial troponin was normal -Repeat troponin levels, may be elevated following the cardioversion -Continue home aspirin #COPD/emphysema -Continue oxygen supplementation -Continues to smoke, importance of quitting smoking given the COPD was discussed and emphasized -Close monitoring #DVT prophylaxis -Already anticoagulated with Eliquis -Continue to monitor, encourage mobilization
[2024-08-30 17:23] LABS: Color, Urine Straw (Yellow); Glucose, Dipstick Normal (Normal); Ketone-Dipstick Negative (Negative); Leukocyte Esterase-Dipstick Negative /ul (Negative); Nitrite-Dipstick Negative (Negative); Occult Blood-Urine Negative /ul (Negative); Protein-Dipstick 15 mg/dl (Negative); Specific Gravity, Urine 1.005 (1.002-1.030); Urine Bilirubin Dipstick Negative (Negative); Urine Clarity Clear (Clear); Urine Urobilinogen Normal (Normal)
[2024-08-30 17:51] LABS: Troponin-I HS 64 pg/mL (3.0-54.0)
[2024-08-30] MEDS: APIXABAN 5 MG TABLET PO (20:54)
[2024-08-30] MEDS: Atorvastatin Calcium 20 MG Tablet PO (20:54)
[2024-08-30] MEDS: Amiodarone 360 MG in Dextrose 5% Viaflo Bag 192.8 ML 16.7 MG CONT INF (21:22)
[2024-08-30] MEDS: Budesonide Respules 0.5 MG/2 ML AMPUL.NEB. INHALATION (22:20)
[2024-08-30] MEDS: Ipratropium/Albuterol Sulfate 3 ML AMPUL.NEB INHALATION (22:20)
[2024-08-31] VITALS (18 sets, daily range): BP systolic 102–121; BP diastolic 55–74; PULSE 63–88; RESP 15–24; TEMP 36.1–37.5; O2SAT 92–96; BMI 28.0
[2024-08-31 03:56] LABS: Absolute Neutrophil Count 6.2 X10^3/uL (2.0-7.7); Basophil# 0.04 X10^3/uL; Basophil% 0.5 % (0-1); Eosinophil# 0.08 X10^3/uL; Hematocrit 34.3 % (37-47); Hemoglobin 10.5 g/dL (12.0-15.0); Lymphocyte % 14.7 % (19-41); Mean Corp Hgb Conc 30.6 g/dL (32-36); Mean Corpuscular Hgb 30.8 pg (27.0-32.0); Mean Corpuscular Volume 100.6 fL (81-99); Mean Platelet Vol. 10.4 fl (6.2-12.0); Monocyte# 0.65 X10^3/uL; NRBC Flagged by Analyzer 0 % (0-5); Neutrophil # 6.16 X10^3/uL (2.7-7.7); Neutrophil % 75.4 % (47-70); Platelet Count 192 K/mm3 (150-450); RBC Distribution Width CV 13.4 % (11.6-14.6); RBC Distribution Width SD 49.6 fl (35.1-43.9); Red Blood Count 3.41 M/mm3 (4.2-5.4); White Blood Count 8.2 K/mm3 (4.4-11.0)
[2024-08-31 04:04] LABS: International Normalized Ratio 1.3; Prothrombin Time (Protime)PT. 16.4 SECONDS (11.7-14.9)
[2024-08-31 04:20] LABS: AST(SGOT) 13 U/L (15-37); Alanine Aminotransfer ALT/SGPT 18 U/L (13-56); Albumin, Serum 2.8 g/dL (3.2-5.0); Alkaline Phosphatase 55 U/L (45-117); Anion Gap 1 (5-15); BUN 15 mg/dL (7-18); BUN/Creat Ratio 19.1 RATIO (10-20); Bilirubin, Direct 0.09 mg/dL (0.00-0.30); Calcium,Total 7.9 mg/dL (8.5-10.1); Chloride 107 mmol/L (98-107); Creatinine, Serum 0.78 mg/dL (0.55-1.02); EST Glomerular Filtration Rate 77 mL/min (>60); Est Glom Filt Rate - Afr Amer 93 mL/min (>60); Estimated Creatinine Clearance 63.72 ml/min; Globulin 2.8 g/dL (2.2-4.2); Glucose 128 mg/dL (74-106); Magnesium 1.8 mg/dL (1.6-2.6); Phosphorus 3.5 mg/dL (2.5-4.9); Potassium 4.6 mmol/L (3.5-5.1); Protein, Total 5.6 g/dL (6.4-8.2); Sodium Level 142 mmol/L (136-145); Thyroid Stim Hormone (TSH) 0.908 uIU/mL (0.358-3.740)
[2024-08-31] MEDS: Budesonide Respules 0.5 MG/2 ML AMPUL.NEB. INHALATION (07:02)
[2024-08-31] MEDS: Ipratropium/Albuterol Sulfate 3 ML AMPUL.NEB INHALATION ×2 (07:02→13:46)
--- NOTE | 2024-08-31 07:28 | PN.HOSP_ITS ---
Reason for Visit Reason for Visit: Diagnoses Personal history of other diseases of the respiratory system (08/30/24) Objective Data Objective Data Vital Signs: Vital Signs Temp Pulse Resp BP Pulse Ox O2 Del Method O2 Flow Rate 98.6 F 74 20 H 108/63 96 Nasal Cannula 4 08/31/24 04:00 08/31/24 07:02 08/31/24 07:02 08/31/24 07:00 08/31/24 07:02 08/31/24 07:02 08/31/24 07:02 Oxygen Flow Rate (L/min) 4 Oxygen Delivery Method Nasal Cannula Weight: 164 lb 0.383 oz Body Mass Index (BMI) 28.0 Intake & Output: Intake and Output for Last 24 Hours 08/29/24 08/30/24 08/31/24 23:59 23:59 23:59 Intake Total 3696.92 / 3696.92 Balance 3696.92 / 3696.92 Lab / Micro Data 08/31/24 03:46 08/31/24 03:46 Labs: Laboratory Results - last 24 hr 08/30/24 14:40: WBC 8.0, RBC 4.08 L, Hgb 12.5, Hct 39.5, MCV 96.8, MCH 30.6, M CHC 31.6 L, RDW Std Deviation 46.1 H, RDW Coeff of Sarah 13.0, Plt Count 235, MPV 10.9, Immature Gran % (Auto) 0.100, Neut % (Auto) 60.7, Lymph % (Auto) 27.8, [place] % (Auto) 7.5, Eos % (Auto) 3.1, Baso % (Auto) 0.8, Absolute Neuts (auto) 4.9, Absolute Lymphs (auto) 2.22, Nucleated RBC % 0, PT 15.1 H, INR 1.2, APTT 30.9, Sodium 140, Potassium 3.5, Chloride 101, Carbon Dioxide 34.0 H, Anion Gap 5, BUN 16, Creatinine 0.87, Estim Creat Clear Calc 58.24, Est GFR (MDRD) Af Amer 83, Est GFR (MDRD) Non-Af 69, BUN/Creatinine Ratio 18.5, Glucose 182 H, Calcium 9.2, Magnesium 1.9, Troponin I High Sens 7 08/30/24 14:46: Lactic Acid 1.9 08/30/24 17:05: Urine Color Straw, Urine Clarity Clear, Urine pH 7.0, Ur Specific [place] 1.005, Urine Protein 15 H, Urine Glucose (UA) Normal, Urine Ketones Negative, Urine Occult Blood Negative, Urine Nitrite Negative, Urine Bilirubin Negative, Urine Urobilinogen Normal, Ur Leukocyte Esterase Negative, Urine RBC 0 SEEN, Urine WBC 0 SEEN, Ur Squamous Epith Cells 0 SEEN, Urine Bacteria 0 SEEN, Urine Mucus 0 SEEN 08/30/24 17:12: Troponin I High Sens 64 H 08/31/24 03:46: WBC 8.2, RBC 3.41 L, Hgb 10.5 L, Hct 34.3 L, MCV 100.6 H, MCH 30.8, MCHC 30.6 L, RDW Std Deviation 49.6 H, RDW Coeff of Sarah 13.4, Plt Count 192, MPV 10.4, Immature Gran % (Auto) 0.400, Neut % (Auto) 75.4 H, Lymph % (Auto) 14.7 L, [place] % (Auto) 8.0, Eos % (Auto) 1.0, Baso % (Auto) 0.5, Absolute Neuts (auto) 6.2, Absolute Lymphs (auto) 1.20, Nucleated RBC % 0, PT 16.4 H, INR 1.3, Sodium 142, Potassium 4.6, Chloride 107, Carbon Dioxide 34.0 H, Anion Gap 1 L, BUN 15, Creatinine 0.78, Estim Creat Clear Calc 63.72, Est GFR (MDRD) Af Amer 93, Est GFR (MDRD) Non-Af 77, BUN/Creatinine Ratio 19.1, Glucose 128 H, Calcium 7.9 L, Phosphorus 3.5, Magnesium 1.8, Total Bilirubin 0.20, Direct Bilirubin 0.09, AST 13 L, ALT 18, Alkaline Phosphatase 55, Total Protein 5.6 L, Albumin 2.8 L, Globulin 2.8, Albumin/Globulin Ratio 1.0, TSH 0.908 Radiography Diagnostic Testing: Radiology Impression Chest CTA 08/30/24 14:27 IMPRESSION: 1. No CTA evidence of pleural with thromboemboli, thoracic aortic aneurysm or dissection. 2. No CT evidence of pneumonia. 3. Moderate old anterior wedge compression fracture of the upper T7 vertebral body and mild degenerative anterolisthesis of C7 on T1 and T2 on T3. 4. Long segment severe stenosis of the left renal artery with minimal arterial flow to the left kidney and no contrast enhancement or nephrogram of the left atrophic kidney. 5. Normal right kidney with normal right nephrogram. 6. Prominent calcified plaques in the proximal LAD branch and fewer calcified plaques in the circumflex branch and right coronary artery. 7. 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 Electronically Signed: Jarrod Traylor MD at 15:53 EST , Assessment & Plan Assessment/Plan (1) History of emphysema: PLAN: Plan 69-year-old female was admitted with have A-fib with RVR complicated with hypotension that required cardioversion and started on amiodarone drip. #A-fib with RVR: The EKG shows slight aVR elevation with diffuse depression. STEMI was ruled out by STEMI on-call dye boarding machine operator. Patient was synchronized x 3 hide patient briefly was in sinus rhythm back in A-fib therefore started on amiodarone drip and anticoagulation with Eliquis. Patient was seen by dye boarding machine operator. Changed to IV amiodarone to amiodarone oral. Downgraded to PCU. Recent echo in April 2023 shows EF 60%,, mild MR, moderate pulmonary hypertension, moderate global RV systolic dysfunction mildly mildly enlarged stage I diastolic dysfunction, -Continue home beta-theodore, with close monitoring of blood pressure in the ICU #Coronary artery disease -She had a back pain at the time of presentation, initial troponin was normal repeat troponin went up probably due to cardioversion. -Continue home aspirin #COPD/emphysema -Continue oxygen supplementation -Continues to smoke, importance of quitting smoking given the COPD was discussed and emphasized -Close monitoring #DVT prophylaxis -Already anticoagulated with Eliquis Charges/Coding Visit Charges Inpatient E&M: 72357 Subs Hosp L3
--- NOTE | 2024-08-31 08:39 | CON.PCM.CA_ITS ---
Assessment & Plan Assessment/Plan (1) Atrial fibrillation with rapid ventricular response: PLAN: She does present with atrial fibrillation with a rapid ventricular response rate. She was noted to have ST depressions in the lateral leads and was hypotensive. I suspect some of this was due to dehydration. She underwent DC cardioversion which was unsuccessful. She was started on intravenous amiodarone and has converted back to sinus rhythm. * My recommendation will be as follows: Continue Eliquis * Metoprolol 50 mg twice a day * Amiodarone 200 mg a day * Echocardiogram to assess ventricular function * DC intravenous amiodarone (2) Atherosclerotic heart disease of [place] coronary artery with unstable angina pectoris: PLAN: Patient has known atherosclerotic cardiovascular disease by cardiac catheterization a year ago which demonstrated moderate disease in the left anterior descending artery obtuse marginal branch as well as the septal marketing graphics specialist. Medical therapy was recommended. At this time therefore my recommendation will be to continue the current medical therapy. I do not think there is a reason for any invasive therapy or stress testing at this time. If patient remains in sinus rhythm over the next 24 hours the patient can be seen as an outpatient. (3) Hypertension: PLAN: She does have a history of hypertension. Her blood pressure is under good control. Indeed she is somewhat hypotensive. I would recommend that we discontinue the Entresto and put her on losartan 50 mg a day. An echocardiogram is pending at this time. HPI Consult Data Date of Consult: 08/31/24 HPI Narrative HPI Narrative: JANENE ALBARRAN, is a 69 F who presents to the emergency room with palpitations was noted to be in atrial fibrillation with a rapid ventricular response rate and ST depressions noted in the lateral leads. She has a known history of atrial fibrillation as well as coronary disease status post cardiac catheterization in April 2023 when she presented and was noted to have ST depression significant from V3-V6 and had presented in A-fib with RVR. 04/30/23 cardiac catheterization with heavily calcified coronary arteries, 60% mid LAD, 80% ostial major septal, 50% proximal OM1, 60% OM 2, 40 to 50% RCA, RPDA with strong recommendation for medical therapy and risk factor modification with medication regimen changes as noted above. She presents this time with the same and underwent 2 episodes of DC cardioversion and successfully became hypotensive cardiology was called we started her on intravenous amiodarone and she has converted back to sinus rhythm. [facility] Medical History (Updated 08/31/24 @ 08:[address] Benjie Mortensen MD) Hypertension Atherosclerotic heart disease of [place] coronary artery with unstable angina pectoris Paroxysmal atrial fibrillation Nicotine dependence Severe chronic obstructive pulmonary disease Osteoarthritis Degenerative disc disease Tobacco abuse Chronic anticoagulation Afib History of emphysema Acute bronchitis, unspecified Home Medications ?Medication ?Instructions ?Recorded ?Last Taken ?Type albuterol sulfate 90 mcg/actuation 1 puff inhalation Q4H PRN PRN Sob 04/21/16 Unknown History aerosol inhaler (ProAir HFA) &/Or Wheezing ferrous sulfate 325 mg (65 mg 325 mg PO DAILY anemia 01/18/23 Unknown History iron) tablet sacubitril 24 mg-valsartan 26 mg 1 tab PO BID heart 01/18/23 Unknown History tablet (Entresto) cholecalciferol (vitamin D3) 50 50 mcg PO DAILY supplement 04/29/23 Unknown History mcg (2,000 unit) capsule aspirin 81 mg tablet,delayed 81 mg PO DAILY@0800 30 days #30 04/30/23 Unknown Rx release tabs atorvastatin 20 mg tablet 20 mg PO QHS 30 days #30 tabs 04/30/23 Unknown Rx metoprolol succinate 50 mg 50 mg PO BID 30 days #60 tabs 04/30/23 Unknown Rx tablet,extended release 24 hr apixaban 5 mg tablet (Eliquis) 5 mg PO BID 08/30/24 Unknown History fluticasone fur. 100 mcg-umeclid 1 ea inhalation DAILY wheezing 08/30/24 Unknown History 62.5 mcg-vilant 25 mcg inhalat.powder (Trelegy Ellipta) torsemide 20 mg tablet 20 mg PO DAILY 08/30/24 Unknown History Allergy/AdvReac Type Severity Reaction Status Date / Time No Known Allergies Allergy Verified 08/30/24 14:22 Family History Other CAD (coronary artery disease) Heart disease Hypertension Surgical History H/O adenoidectomy Hx of tonsillectomy History of appendectomy Total knee replacement status Hx of neck surgery Social History household members: spouse housing: house Smoking Status: Current every day smoker tobacco type: cigarettes alcohol intake: current alcohol intake frequency: holidays/special occasions only substance use type: does not use ROS Constitutional Constitutional: Denies fever(s) or weight loss Eyes Eyes: Reports systems reviewed and no addt'l complaints, except as documented ENT HEENT: Reports systems reviewed and no addt'l complaints, except as documented Cardiovascular Cardiovascular: Reports irregular heart rhythm and palpitations; Denies chest pain at rest, chest pain with activity, dyspnea at rest, dyspnea on exertion, edema or paroxysmal nocturnal dyspnea Respiratory/Chest Respiratory/Chest: Denies dyspnea on exertion, productive cough, shortness of breath at rest or shortness of breath with exertion Gastrointestinal Gastrointestinal: Denies change in bowel habits, nausea, vomiting or weight changes Genitourinary Genitourinary: Denies difficulty urinating Musculoskeletal Musculoskeletal: Denies joint stiffness or muscle weakness Integumentary Integumentary: Denies lesions Neurologic Neurologic: Denies dizziness or syncope Psychiatric Psychiatric: Denies anxiety Endocrine Endocrinology: Denies excessive sweating or fatigue Hematologic/Lymphatic Hematologic/Lymphatic: Denies anemia Allergic/Immunologic Allergic/Immunologic: Denies seasonal rhinorrhea Physical Exam Const alert, oriented x3 and no apparent distress General Appearance: cooperative HEENT hearing grossly normal bilaterally Head and Scalp: atraumatic Eyes EOMs intact bilaterally Neck General: normal visual inspection Chest inspection of chest normal and palpation of chest normal Resp normal respiratory effort Auscultation: clear to auscultation bilaterally Cardio regular rate, regular rhythm, S1 normal heart sound and S2 normal heart sound Jugular Venous Distention: JVD GI normal to inspection, nondistended, normoactive bowel sounds Extremity normal capillary refill and no pedal edema Peripheral Pulses: Yes pulses 2+ throughout and femoral pulses present Skin no rashes or lesions noted Neuro oriented x3 and CN's II-XII intact bilaterally Psych Appearance: grossly normal and appropriate Risk Stratification Risk Stratification Applicable: No Objective Data Vital Signs: Vital Signs Temp Pulse Resp BP Pulse Ox O2 Del Method O2 Flow Rate 98.6 F 74 20 H 108/63 96 Nasal Cannula 4 08/31/24 04:00 08/31/24 07:02 08/31/24 07:02 08/31/24 07:00 08/31/24 07:02 08/31/24 07:02 08/31/24 07:02 Oxygen Flow Rate (L/min) 4 Oxygen Delivery Method Nasal Cannula Weight: 164 lb 0.383 oz Body Mass Index (BMI) 28.0 Intake & Output: Intake and Output for Last 24 Hours 08/29/24 08/30/24 08/31/24 23:59 23:59 23:59 Intake Total 3696.92 / 3696.92 Balance 3696.92 / 3696.92 Lab / Micro Data 08/31/24 03:46 08/31/24 03:46 Labs: Laboratory Results - last 24 hr 08/30/24 14:40: WBC 8.0, RBC 4.08 L, Hgb 12.5, Hct 39.5, MCV 96.8, MCH 30.6, M CHC 31.6 L, RDW Std Deviation 46.1 H, RDW Coeff of Sarah 13.0, Plt Count 235, MPV 10.9, Immature Gran % (Auto) 0.100, Neut % (Auto) 60.7, Lymph % (Auto) 27.8, [place] % (Auto) 7.5, Eos % (Auto) 3.1, Baso % (Auto) 0.8, Absolute Neuts (auto) 4.9, Absolute Lymphs (auto) 2.22, Nucleated RBC % 0, PT 15.1 H, INR 1.2, APTT 30.9, Sodium 140, Potassium 3.5, Chloride 101, Carbon Dioxide 34.0 H, Anion Gap 5, BUN 16, Creatinine 0.87, Estim Creat Clear Calc 58.24, Est GFR (MDRD) Af Amer 83, Est GFR (MDRD) Non-Af 69, BUN/Creatinine Ratio 18.5, Glucose 182 H, Calcium 9.2, Magnesium 1.9, Troponin I High Sens 7 08/30/24 14:46: Lactic Acid 1.9 08/30/24 17:05: Urine Color Straw, Urine Clarity Clear, Urine pH 7.0, Ur Specific [place] 1.005, Urine Protein 15 H, Urine Glucose (UA) Normal, Urine Ketones Negative, Urine Occult Blood Negative, Urine Nitrite Negative, Urine Bilirubin Negative, Urine Urobilinogen Normal, Ur Leukocyte Esterase Negative, Urine RBC 0 SEEN, Urine WBC 0 SEEN, Ur Squamous Epith Cells 0 SEEN, Urine Bacteria 0 SEEN, Urine Mucus 0 SEEN 08/30/24 17:12: Troponin I High Sens 64 H 08/31/24 03:46: WBC 8.2, RBC 3.41 L, Hgb 10.5 L, Hct 34.3 L, MCV 100.6 H, MCH 30.8, MCHC 30.6 L, RDW Std Deviation 49.6 H, RDW Coeff of Sarah 13.4, Plt Count 192, MPV 10.4, Immature Gran % (Auto) 0.400, Neut % (Auto) 75.4 H, Lymph % (Auto) 14.7 L, [place] % (Auto) 8.0, Eos % (Auto) 1.0, Baso % (Auto) 0.5, Absolute Neuts (auto) 6.2, Absolute Lymphs (auto) 1.20, Nucleated RBC % 0, PT 16.4 H, INR 1.3, Sodium 142, Potassium 4.6, Chloride 107, Carbon Dioxide 34.0 H, Anion Gap 1 L, BUN 15, Creatinine 0.78, Estim Creat Clear Calc 63.72, Est GFR (MDRD) Af Amer 93, Est GFR (MDRD) Non-Af 77, BUN/Creatinine Ratio 19.1, Glucose 128 H, Calcium 7.9 L, Phosphorus 3.5, Magnesium 1.8, Total Bilirubin 0.20, Direct Bilirubin 0.09, AST 13 L, ALT 18, Alkaline Phosphatase 55, Total Protein 5.6 L, Albumin 2.8 L, Globulin 2.8, Albumin/Globulin Ratio 1.0, TSH 0.908 Cardiology Labs/Tests 08/30/24 14:40: WBC 8.0, RBC 4.08 L, Hgb 12.5, Hct 39.5, MCV 96.8, MCH 30.6, M CHC 31.6 L, Plt Count 235, MPV 10.9, Immature Gran % (Auto) 0.100, Neut % (Auto) 60.7, Lymph % (Auto) 27.8, [place] % (Auto) 7.5, Eos % (Auto) 3.1, Baso % (Auto) 0.8, Absolute Neuts (auto) 4.9, Nucleated RBC % 0, PT 15.1 H, INR 1.2, APTT 30.9, Sodium 140, Potassium 3.5, Chloride 101, Carbon Dioxide 34.0 H, Anion Gap 5, BUN 16, Creatinine 0.87, Est GFR (MDRD) Af Amer 83, Est GFR (MDRD) Non-Af 69, BUN/Creatinine Ratio 18.5, Glucose 182 H, Calcium 9.2, Magnesium 1.9 08/30/24 14:46: Lactic Acid 1.9 08/30/24 17:05: Urine Color Straw, Urine Clarity Clear, Urine pH 7.0, Ur Specific [place] 1.005, Urine Protein 15 H, Urine Glucose (UA) Normal, Urine Ketones Negative, Urine Occult Blood Negative, Urine Nitrite Negative, Urine Bilirubin Negative, Urine Urobilinogen Normal, Ur Leukocyte Esterase Negative, Urine RBC 0 SEEN, Urine WBC 0 SEEN 08/31/24 03:46: WBC 8.2, RBC 3.41 L, Hgb 10.5 L, Hct 34.3 L, MCV 100.6 H, MCH 30.8, MCHC 30.6 L, Plt Count 192, MPV 10.4, Immature Gran % (Auto) 0.400, Neut % (Auto) 75.4 H, Lymph % (Auto) 14.7 L, [place] % (Auto) 8.0, Eos % (Auto) 1.0, Baso % (Auto) 0.5, Absolute Neuts (auto) 6.2, Nucleated RBC % 0, PT 16.4 H, INR 1.3, Sodium 142, Potassium 4.6, Chloride 107, Carbon Dioxide 34.0 H, Anion Gap 1 L, BUN 15, Creatinine 0.78, Est GFR (MDRD) Af Amer 93, Est GFR (MDRD) Non-Af 77, BUN/Creatinine Ratio 19.1, Glucose 128 H, Calcium 7.9 L, Phosphorus 3.5, Magnesium 1.8, Total Bilirubin 0.20, Direct Bilirubin 0.09 Rhythm: EKG: ECHO: Stress Test: Cardiac Cath: PCI: CT Surgery: Holter monitor: EPS: PPM: CXR: Chest CT Scan: Radiography Diagnostic Testing: Radiology Impression Chest CTA 08/30/24 14:27 IMPRESSION: 1. No CTA evidence of pleural with thromboemboli, thoracic aortic aneurysm or dissection. 2. No CT evidence of pneumonia. 3. Moderate old anterior wedge compression fracture of the upper T7 vertebral body and mild degenerative anterolisthesis of C7 on T1 and T2 on T3. 4. Long segment severe stenosis of the left renal artery with minimal arterial flow to the left kidney and no contrast enhancement or nephrogram of the left atrophic kidney. 5. Normal right kidney with normal right nephrogram. 6. Prominent calcified plaques in the proximal LAD branch and fewer calcified plaques in the circumflex branch and right coronary artery. 7. 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 Electronically Signed: Jarrod Traylor MD at 15:53 EST ,
[2024-08-31] MEDS: Aspirin E.C. 81 MG Tablet PO (09:14)
[2024-08-31] MEDS: Losartan Potassium 50 MG Tablet PO (09:15)
[2024-08-31] MEDS: Metoprolol(XL)Succ 50 MG Tablet PO ×2 (09:15→21:12)
[2024-08-31] MEDS: Amiodarone 200 MG Tablet PO (09:15)
[2024-08-31] MEDS: APIXABAN 5 MG TABLET PO ×2 (09:15→21:13)
[2024-08-31] MEDS: Ferrous Sulfate 325 MG Tablet PO (09:15)
--- NOTE | 2024-08-31 09:34 | CASEMGMT ---
KIM DOUGLAS Assessment Face to Face with patient for initial transition planning/care coordination assessment. KIM DOUGLAS introduced self and role at [facility], pt voices understanding. Pt is A&Ox4 and is resting comfortably in bed and is calm. Pt at bedside. Care providers, pharmacy, and demographics verified. Admitting dx: MACARIO BOYD Strata: 2 PCP: Michelle Barrios Specialists: Capri Styles (Cardio). Pt also sees a Territory Outside Sales Manager at [facility] but cannot recall the name Preferred Pharmacy: [facility] Insurance: [employer] [facility] Prescription Benefit: Yes LNOK: Allan (H) Living Arrangements: Pt lives with her in a 2 story home with a FFSU and 2 steps to enter ADLs/IADLs: Ind Transportation: Self, DME: Home oxygen through [facility]. TC to [facility] who state that the pt current order is 2L continuous. Pt states that she has a concentrator, POC, portable tanks, pulse ox, nebulizer, raised TS, Cane, FWW, and grab bars at home. Pt states that she has the POC here. CM to follow for updated Rx needs. HHC/SNF: Denies history or needs Pt?s goal: Return home Plan: Home with pt , follow for increased oxygen needs. Pt states that she takes Eliquis already at home. 6-Click is 20. Pt denies the need for HH, OP Tx, or CCN. Pt states that she feels safe returning home with her once she is medically ready and denies further questions or concerns at this time. CM to follow. Sandeep Joy RN, CM
--- NOTE | 2024-08-31 15:39 | ECHOD_ITS ---
Reason For Study: ATRIAL FIBRILLATION Procedure This was a 2D Doppler, Color Flow transthoracic echocardiogram. The patient was scanned supine. Exam performed portable in ICU/CCU. Left Ventricle Normal LV size. Left ventricular systolic function is normal. The left ventricular ejection fraction is 65 %. No regional wall motion abnormalities noted. Right Ventricle Normal RV size. Normal systolic function. Atria Normal left atrium. Normal right atrium. Mitral Valve Normal mitral valve. Mild-Moderate (1-2+) mitral valve insufficiency. Tricuspid Valve Normal tricuspid valve. Aortic Valve Trisinus/trileaflet aortic valve. Pulmonic Valve Normal pulmonic valve. Great Vessels Normal aortic root. The pulmonary artery is normal size. The inferior vena cava is dilated. and partially collapses. Pericardium/Pleural No pericardial effusion. MMode/2D Measurements & Calculations LVIDd: 4.5 cm IVSd: 1.1 cm LVOT diam: 2.0 cm LVIDs: 2.3 cm LVPWd: 1.1 cm LVOT area: 3.0 cm2 RVDd: 3.4 cm FS: 49.4 % asc Aorta Diam: 3.6 cm LAV(MOD-bp): 64.2 ml LVAd ap4: 22.0 cm2 LAV(MOD-bp) Indexed: 35.7 ml/m2 LVLd ap4: 7.4 cm LAV(MOD-sp2): 85.3 ml EDV(MOD-sp4): 53.4 ml LAV(MOD-sp4): 40.2 ml EDV(sp4-el): 55.0 ml LVAs ap4: 10.2 cm2 LVLs ap4: 5.7 cm ESV(MOD-sp4): 17.2 ml ESV(sp4-el): 15.6 ml EF(MOD-sp4): 67.9 % EF(sp4-el): 71.6 % LVAd ap2: 24.2 cm2 SV(MOD-sp4): 36.3 ml SV(MOD-sp2): 39.1 ml LVLd ap2: 7.5 cm SI(MOD-sp4): 20.2 ml/m2 SI(MOD-sp2): 21.7 ml/m2 EDV(MOD-sp2): 63.7 ml EDV(sp2-el): 65.7 ml LVAs ap2: 13.4 cm2 LVLs ap2: 6.5 cm ESV(MOD-sp2): 24.6 ml ESV(sp2-el): 23.1 ml EF(MOD-sp2): 61.4 % SV(sp4-el): 39.4 ml Ao sinus diam: 3.[address] Junction: 2.5 cm LA dimension(2D): 3.6 cm LA A4 area: 15.3 cm2 RA A4 area: 17.3 cm2 TAPSE: 2.3 cm Time Measurements MV dec time: 0.20 sec Doppler Measurements & Calculations MV E max jorge luis: 101.1 cm/sec Lat Peak E' Jorge Luis: 5.5 cm/sec Med Peak E' Jorge Luis: 6.4 cm/sec MV A max jorge luis: 59.1 cm/sec E/E' lat: 18.3 E/E' med: 15.8 MV E/A: 1.7 MV dec slope: 497.9 cm/sec2 Ao V2 max: 143.9 cm/sec LV V1 max: 103.6 cm/sec Ao max P.3 mmHg LV V1 max P.3 mmHg Ao V2 mean: 103.7 cm/sec LV V1 mean P.3 mmHg Ao mean P.7 mmHg LV V1 mean: 70.8 cm/sec Ao V2 VTI: 33.7 cm LV V1 VTI: 26.3 cm AV (velocity ratio): 0.78 WILDER(I,D): 2.3 cm2 WILDER(V,D): 2.2 cm2 SV(LVOT): 79.2 ml PA V2 max: 81.9 cm/sec ECHO/Echo Complete Interpretation Summary Normal LV size. Left ventricular systolic function is normal. The left ventricular ejection fraction is 65 %. Mild-Moderate (1-2+) mitral valve insufficiency. Ordering Physician: Benji Knowles Performed By: Mariam Muniz RDCS
[2024-08-31] MEDS: Atorvastatin Calcium 20 MG Tablet PO (21:12)
[2024-08-31] MEDS: 0.9% Saline Lock 10 ML Syringe IV (21:13)
[2024-09-01] VITALS (35 sets, daily range): BP systolic 85–178; BP diastolic 51–100; PULSE 49–100; RESP 12–38; TEMP 36.3–37.1; O2SAT 90–99; BMI 28.9
[2024-09-01] MEDS: Albuterol 2.5 MG/3 ML VIAL.NEB. INHALATION ×2 (01:23→08:27)
[2024-09-01 01:50] LABS: Allen Test Positive; Base Excess 5 mmol/L (-2 to +2); Bicarbonate 33.3 mmol/L (22-26); Blood Gas Specimen Type ART; Mode Not entered; O2 Delivery Device BiPAP; PEEP 8; PO2 168 mmHG (75-100); RR 12; SITE R Radial; SO2 99 % (95-99); Total Carbon Dioxide 36 mmol/L; pCO2 90.6 mmHg (35-45); pH 7.17 (7.35-7.45)
[2024-09-01 03:35] LABS: Allen Test Positive; Base Excess 10 mmol/L (-2 to +2); Bicarbonate 36.7 mmol/L (22-26); Blood Gas Specimen Type ART; Mode Not entered; O2 Delivery Device BiPAP; PEEP 12; PO2 76 mmHG (75-100); RR 12; SITE L Radial; SO2 91 % (95-99); Total Carbon Dioxide 39 mmol/L; pCO2 83.2 mmHg (35-45); pH 7.25 (7.35-7.45)
[2024-09-01] MEDS: dexMEDEtomidine 400 MCG in 0.9% Normal Saline (100mL Bag) 96 ML 14.9 MCG CONT INF (04:03)
[2024-09-01 04:23] LABS: Absolute Lymphocyte Count 1.59 X10^3/uL (0.83-4.51); Absolute Neutrophil Count 11.2 X10^3/uL (2.0-7.7); Basophil# 0.04 X10^3/uL; Basophil% 0.3 % (0-1); Eosinophil# 0.02 X10^3/uL; Eosinophils% 0.1 % (0-5); Hematocrit 37.9 % (37-47); Hemoglobin 11.7 g/dL (12.0-15.0); Lymphocyte # 1.59 X10^3/ul (0.83-4.51); Lymphocyte % 11.5 % (19-41); Mean Corp Hgb Conc 30.9 g/dL (32-36); Mean Corpuscular Hgb 31.3 pg (27.0-32.0); Mean Corpuscular Volume 101.3 fL (81-99); Mean Platelet Vol. 10.3 fl (6.2-12.0); Monocyte# 0.93 X10^3/uL; Monocyte% 6.7 % (0-10); NRBC Flagged by Analyzer 0 % (0-5); Neutrophil # 11.21 X10^3/uL (2.7-7.7); Neutrophil % 80.9 % (47-70); Platelet Count 220 K/mm3 (150-450); RBC Distribution Width CV 13.4 % (11.6-14.6); RBC Distribution Width SD 49.9 fl (35.1-43.9); Red Blood Count 3.74 M/mm3 (4.2-5.4); White Blood Count 13.9 K/mm3 (4.4-11.0)
[2024-09-01 04:40] LABS: Anion Gap -2 (5-15); BUN 14 mg/dL (7-18); BUN/Creat Ratio 21.8 RATIO (10-20); Calcium,Total 8.9 mg/dL (8.5-10.1); Chloride 105 mmol/L (98-107); Creatinine, Serum 0.64 mg/dL (0.55-1.02); EST Glomerular Filtration Rate 97 mL/min (>60); Est Glom Filt Rate - Afr Amer 117 mL/min (>60); Estimated Creatinine Clearance 63.72 ml/min; Glucose 159 mg/dL (74-106); Potassium 4.6 mmol/L (3.5-5.1); Sodium Level 138 mmol/L (136-145)
[2024-09-01] MEDS: 0.9% Normal Saline (250mL Bag) 500 ML 999 ML IV (06:00)
--- NOTE | 2024-09-01 08:04 | PN.HOSP_ITS ---
Reason for Visit Reason for Visit: Diagnoses Essential (primary) hypertension (08/30/24) Atherosclerotic heart disease of [place] coronary artery with unstable angina pectoris (08/30/24) Unspecified atrial fibrillation (08/30/24) Personal history of other diseases of the respiratory system (08/30/24) Objective Data Objective Data Vital Signs: Vital Signs Temp Pulse Resp BP Pulse Ox O2 Del Method O2 Flow Rate 97.3 F L 50 L 24 H 93/59 L 95 Mechanical Ventilator 4 09/01/24 06:00 09/01/24 07:00 09/01/24 07:00 09/01/24 07:00 09/01/24 07:00 09/01/24 07:00 08/31/24 20:21 FiO2 60 09/01/24 07:00 Oxygen Flow Rate (L/min) 4 Oxygen Delivery Method Mechanical Ventilator Weight: 168 lb 10.458 oz Body Mass Index (BMI) 28.9 Intake & Output: Intake and Output for Last 24 Hours 08/30/24 08/31/24 09/01/24 23:59 23:59 23:59 Intake Total 3696.92 / 3696.92 440 / 440 666.23 / 666.23 Output Total 400 / 400 0 / 0 Balance 3696.92 / 3696.92 40 / 40 666.23 / 666.23 Lab / Micro Data 09/01/24 04:15 09/01/24 04:15 Labs: Laboratory Results - last 24 hr 09/01/24 04:15: WBC 13.9 H, RBC 3.74 L, Hgb 11.7 L, Hct 37.9, MCV 101.3 H, MCH 31.3, MCHC 30.9 L, RDW Std Deviation 49.9 H, RDW Coeff of [place] 13.4, Plt Count 220, MPV 10.3, Immature Gran % (Auto) 0.500, Neut % (Auto) 80.9 H, Lymph % (Auto) 11.5 L, [place] % (Auto) 6.7, Eos % (Auto) 0.1, Baso % (Auto) 0.3, Absolute Neuts (auto) 11.2 H, Absolute Lymphs (auto) 1.59, Nucleated RBC % 0, Sodium 138, Potassium 4.6, Chloride 105, Carbon Dioxide 35.0 H, Anion Gap -2 L, BUN 14, Creatinine 0.64, Estim Creat Clear Calc 63.72, Est GFR (MDRD) Af Amer 117, Est GFR (MDRD) Non-Af 97, BUN/Creatinine Ratio 21.8 H, Glucose 159 H, Calcium 8.9 ABG Data ABG results: ABG 09/01/24 09/01/24 01:46 03:29 Specimen Type ART ART Sample Site R Radial L Radial pH 7.17 L* 7.25 L Bicarbonate Actual 33.3 H 36.7 H Total CO2 36 39 Base Excess 5 H 10 H O2 Saturation 99 91 L O2 % 50.0 35.0 ABG pCO2 90.6 H* 83.2 H* ABG pO2 168 H 76 Paresh Test Positive Positive Respiration Rate 12 12 O2 Delivery Device BiPAP BiPAP Vent Mode Not entered Not entered Tidal Volume 450.0 450.0 POC PEEP 8 12 Crit Call To/Read Back Yes Yes Blood Gas Notified Whom dr conor Sánchez Blood Gas Notified Time 01:48:12 03:31:58 Physical Exam Narrative Seen and examined. Last night patient was short of breath, eyes deviated in respiratory distress and ABG showed very acidotic pH we will put on BiPAP. She was also put on Precedex and transferred to ICU. She herself is stated that she was not able to breathe, felt congestion in the center of the chest and has chronic cough Physical exam General: Mild drowsy, BiPAP/AVAPS. Oriented x 3 HEENT: Atraumatic, PERRLA, EOMI, Normocephalic Oral: No Gingival or Mucosal Lesions/ Ulcerations Neck: Supple, No JVD, Negative Carotid Bruits Chest wall/Lungs: Air entry diminished in bilateral lung bases. No crepitation/rhonchi Cardiovascular: Sinus bradycardia in 40s, low BP. No M/G/R Abdomen: Bowel Sounds Present, Soft, Non Tender, Non-Distended : No dysuria. No renal angle tenderness. No suprapubic tenderness. Extremities: No edema, Capillary Refill Less than 3 Seconds Skin: No rashes, No breakdown Musculoskeletal: No Tenderness to Palpation of Joints or Extremities Neurological: Cranial nerves II-XII grossly intact, DTR 2+/4. No acute focal neurological deficit. Psych/Mental Status: Flat of. Assessment & Plan Assessment/Plan (1) History of emphysema: PLAN: Plan 69-year-old female was admitted with have A-fib with RVR complicated with hypotension that required cardioversion and started on amiodarone drip. Overnight patient went to respiratory distress, respiratory acidosis and was put on BiPAP #A-fib with RVR: The EKG shows slight aVR elevation with diffuse depression. STEMI was ruled out by STEMI on-call recreation assistant. Patient was synchronized x 3 hide patient briefly was in sinus rhythm back in A-fib therefore started on amiodarone drip and anticoagulation with Eliquis. Patient was seen by recreation assistant. Changed to IV amiodarone to amiodarone oral. Downgraded to PCU. Recent echo in April 2023 shows EF 60%,, mild MR, moderate pulmonary hypertension, moderate global RV systolic dysfunction mildly mildly enlarged stage I diastolic dysfunction, -Continue home beta-theodore, with close monitoring of blood pressure in the ICU Acute on chronic combined respiratory failure probably due to COPD exacerbation 08/25: Overnight events noted with respiratory distress, agitation and chest congestion. First ABG 7.17/90.6/168 on BiPAP 450 mL. Second ABG showed improvement 7.25/83.2 but the most recent again showed critically low pH 7.21/77.1/104. Oxidized Finish Plater consulted. Patient on AVAPS. Respiratory panel ordered. Patient is being managed on scheduled bronchodilator, IV Solu-Medrol, Mucinex, incentive spirometry and Pep. Azithromycin is contraindicated because of amiodarone. #Coronary artery disease/PAD -She had a back pain at the time of presentation, initial troponin was normal repeat troponin went up probably due to cardioversion. -Continue home aspirin 09/01: CTA chest though negative for thromboembolic but showed high-grade stenosis of celiac artery origin, prominent calcified plaque seen oxymel LAD long segment of severe stenosis of left renal artery with minimal arterial flow to left kidney. #COPD/emphysema -Continue oxygen supplementation -Continues to smoke, importance of quitting smoking given the COPD was discussed and emphasized, still smokes half pack per day - #DVT prophylaxis -Already anticoagulated with Eliquis Charges/Coding Visit Charges Inpatient E&M: 40100 Subs Hosp L3
[2024-09-01 08:10] LABS: Base Excess 3 mmol/L (-2 to +2); Bicarbonate 30.6 mmol/L (22-26); Blood Gas Specimen Type ART; Comment 24 14; Mode Not entered; O2 Delivery Device Not entered; PEEP 8; PO2 104 mmHG (75-100); RR 18; SITE L Radial; SO2 96 % (95-99); Total Carbon Dioxide 33 mmol/L; pCO2 77.1 mmHg (35-45); pH 7.21 (7.35-7.45)
--- NOTE | 2024-09-01 08:10 | RAD_ITS ---
STUDY: X-RAY CHEST REASON FOR EXAM: Female, 69 years old. Respiratory Failure TECHNIQUE: Single AP portable view of the chest. COMPARISON: 04/28/2023 FINDINGS: The lungs are clear and expanded. Tiny left pleural effusion. Normal size heart. Normal mediastinum and cash. Normal visualized pulmonary arteries. Normal visualized aortic arch and descending thoracic aorta. Normal visualized thoracic spine. Normal visualized ribs, clavicles, and shoulders. There is no demonstrated abnormality of the visualized soft tissue structures of the upper abdomen. RAD/Chest 1 View (Portable) IMPRESSION: Tiny left pleural effusion. Electronically Signed: Lucas Hernandez MD at 8:46 EST ,
--- NOTE | 2024-09-01 08:45 | CON.PCM.CC_ITS ---
Assessment & Plan Assessment/Plan (1) Acute on chronic respiratory failure with hypoxia and hypercapnia: PLAN: Plan RECOMMENDATIONS: 1. Continue PAP therapy with naps and nightly. 2. Wean supplemental oxygen to maintain saturations at or above 90%. 3. Rate/rhythm control strategy per cardiology. 4. Initiate scheduled bronchodilator therapy along with IV steroids. 5. Encourage incentive spirometer use and mobilize patient as tolerated. 6. Discontinue Precedex. IMPRESSIONS: 1. Acute on chronic combined respiratory failure Unclear precipitating etiology. The patient apparently developed a great deal of anxiety and respiratory distress last night, for which she was ultimately transferred to the ICU and placed on PAP therapy and Precedex. She appears symptomatically improved this morning. The Precedex has been discontinued. The patient has an extensive tobacco abuse history and is on a triple therapy inhaler regimen at her baseline along with 3 L/min of supplemental oxygen. She does continue to smoke cigarettes daily. Her COVID PCR is negative. However, I do agree with checking it with full respiratory viral panel. Up until this morning, the patient was not receiving scheduled bronchodilator therapy, which may have precipitated her symptoms. CTA chest completed on 08/30 ruled out pulmonary embolism. There was no significant cardiopulmonary process noted on repeat chest x-ray from this morning. I would plan to continue scheduled bronchodilator therapy every 4 hours along with IV steroids as ordered. Lastly, the patient would benefit from ongoing PAP therapy on a nightly basis and as needed throughout the day. Nicotine replacement therapy can be offered to the patient while admitted to the hospital. 2. History of coronary artery disease/atrial fibrillation with RVR Continue medical management per cardiology recommendations. 3. History of advanced age COPD/chronic tobacco dependency/hypertension Complicates care, management, recovery and prognosis. Continue home medications as indicated. Resume triple therapy inhaler regimen at discharge. Follow-up with primary pulmonary provider after discharge from the hospital. Smoking cessation is advisable. This note was generated with [employer] dictation software. It may contain incorrect words, spelling, and punctuation that were not noted in checking the note before signing. HPI Consult Data Date of Consult: 09/01/24 HPI Narrative Reason for Consultation: Acute on chronic respiratory failure HPI Narrative: The patient is a 69-year-old female, with a history as outlined below, who presented initially to the emergency department on August 30 with heart palpitations. The patient has a known history of atrial fibrillation, chronic hypoxemic respiratory failure with a baseline requirement of 3 L/min, advanced age COPD (currently followed by a drug abuse worker in [place]), coronary artery disease and hypertension. In addition, the patient has an extensive tobacco abuse history and continues to smoke less than 1 pack of cigarettes per day. She is on a triple therapy inhaler regimen at her baseline, but does not utilize any form of nocturnal PAP therapy at home. On presentation to the emergency department, the patient was noted to be in atrial fibrillation with RVR. Ultimately, the patient experienced a precipitous drop in her blood pressure while in the emergency department, for which emergent cardioversion was undertaken. The patient briefly regained normal sinus rhythm, but subsequently relapsed back into atrial fibrillation. Initial laboratory evaluation revealed a normal white blood cell count. Hemoglobin and platelet count were stable. Chemistry profile was notable for a bicarbonate of 34. Creatinine was within normal limits. Lactate was within normal limits. Troponin was elevated at 64. Urine analysis was unremarkable. CTA chest demonstrated no PE or acute cardiopulmonary process. The patient was medically managed with amiodarone and beta-theodore therapy. She was ultimately admitted to the progressive care unit and seen in consultation by cardiology. 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 She was apparently extremely anxious. It does not appear that any form of medical intervention was performed other than initiating her on PAP therapy and a Precedex infusion. Because of this, the patient was transferred to the medical intensive care unit. This morning, upon my evaluation, the patient's Precedex was discontinued. Her last pH was noted to be 7.2 with a pCO2 of 77 and pO2 of 104. However, the patient is completely alert and appropriately interactive. [facility] Medical History (Updated 09/01/24 @ 09:[address] Kameron Brooke, DO) Hypertension Atherosclerotic heart disease of [place] coronary artery with unstable angina pectoris Paroxysmal atrial fibrillation Nicotine dependence Severe chronic obstructive pulmonary disease Osteoarthritis Degenerative disc disease Tobacco abuse Chronic anticoagulation Afib History of emphysema Acute bronchitis, unspecified Home Medications ?Medication ?Instructions ?Recorded ?Last Taken ?Type ferrous sulfate 325 mg (65 mg 325 mg PO DAILY anemia 01/18/23 Unknown History iron) tablet sacubitril 24 mg-valsartan 26 mg 1 tab PO BID heart 01/18/23 Unknown History tablet (Entresto) cholecalciferol (vitamin D3) 50 50 mcg PO DAILY supplement 08/24/23 Unknown History mcg (2,000 unit) capsule aspirin 81 mg tablet,delayed 81 mg PO DAILY@0800 30 days #30 04/30/23 Unknown Rx release tabs atorvastatin 20 mg tablet 20 mg PO QHS 30 days #30 tabs 04/30/23 Unknown Rx metoprolol succinate 50 mg 50 mg PO BID 30 days #60 tabs 04/30/23 Unknown Rx tablet,extended release 24 hr apixaban 5 mg tablet (Eliquis) 5 mg PO BID 08/30/24 Unknown History fluticasone fur. 100 mcg-umeclid 1 ea inhalation DAILY wheezing 08/30/24 Unknown History 62.5 mcg-vilant 25 mcg inhalat.powder (Trelegy Ellipta) torsemide 20 mg tablet 20 mg PO DAILY 08/30/24 Unknown History fluticasone fur. 100 mcg-umeclid 1 inh inhalation DAILY COPD 08/31/24 08/30/24 History 62.5 mcg-vilant 25 mcg inhalat.powder (Trelegy Ellipta) Allergy/AdvReac Type Severity Reaction Status Date / Time No Known Allergies Allergy Verified 08/30/24 14:22 Family History Other CAD (coronary artery disease) Heart disease Hypertension Surgical History H/O adenoidectomy Hx of tonsillectomy History of appendectomy Total knee replacement status Hx of neck surgery Social History household members: spouse housing: house Smoking Status: Current every day smoker tobacco type: cigarettes alcohol intake: current alcohol intake frequency: holidays/special occasions only substance use type: does not use ROS ROS Narrative 10 systems were reviewed with pertinent positives as noted in the HPI above. Physical Exam Const alert and no apparent distress Constitutional Narrative: Currently tolerating PAP therapy. The patient is alert and appropriately conversive. General Appearance: cooperative HEENT normocephalic and head/scalp atraumatic Eyes PERRL, EOMs intact bilaterally and conjunctivae normal Neck supple General: trachea midline Chest Chest Narrative: Increased AP diameter. Resp normal respiratory effort Auscultation: wheezes and diminished lung sounds Cardio S1 normal heart sound and S2 normal heart sound Rhythm: abnormal rhythm GI normal to inspection, nondistended, normoactive bowel sounds Extremity no clubbing, cyanosis or edema Skin no rashes or lesions noted Neuro CN's II-XII intact bilaterally, moves all extremities and no focal motor deficits Psych cooperative and affect normal Lab / Micro Data 09/01/24 04:15 09/01/24 04:15 Labs: Laboratory Results - last 24 hr 09/01/24 04:15: WBC 13.9 H, RBC 3.74 L, Hgb 11.7 L, Hct 37.9, MCV 101.3 H, MCH 31.3, MCHC 30.9 L, RDW Std Deviation 49.9 H, RDW Coeff of [place] 13.4, Plt Count 220, MPV 10.3, Immature Gran % (Auto) 0.500, Neut % (Auto) 80.9 H, Lymph % (Auto) 11.5 L, [place] % (Auto) 6.7, Eos % (Auto) 0.1, Baso % (Auto) 0.3, Absolute Neuts (auto) 11.2 H, Absolute Lymphs (auto) 1.59, Nucleated RBC % 0, Sodium 138, Potassium 4.6, Chloride 105, Carbon Dioxide 35.0 H, Anion Gap -2 L, BUN 14, Creatinine 0.64, Estim Creat Clear Calc 63.72, Est GFR (MDRD) Af Amer 117, Est GFR (MDRD) Non-Af 97, BUN/Creatinine Ratio 21.8 H, Glucose 159 H, Calcium 8.9 ABG Data ABG results: ABG 09/01/24 09/01/24 09/01/24 01:46 03:29 08:05 Specimen Type ART ART ART Sample Site R Radial L Radial L Radial pH 7.17 L* 7.25 L 7.21 L Bicarbonate Actual 33.3 H 36.7 H 30.6 H Total CO2 36 39 33 Base Excess 5 H 10 H 3 H O2 Saturation 99 91 L 96 O2 % 50.0 35.0 40.0 ABG pCO2 90.6 H* 83.2 H* 77.1 H* ABG pO2 168 H 76 104 H Paresh Test Positive Positive Respiration Rate 12 12 18 O2 Delivery Device BiPAP BiPAP Not entered Vent Mode Not entered Not entered Not entered Tidal Volume 450.0 450.0 450.0 POC PEEP 8 12 8 Crit Call To/Read Back Yes Yes Yes Blood Gas Notified Whom dr conor amador Blood Gas Notified Time 01:48:12 03:31:58 08:06:51 Clinical Comments 24 14 Charges/Coding Visit Charges Inpatient E&M: 52955 Init Hosp L3
[2024-09-01] MEDS: APIXABAN 5 MG TABLET PO ×2 (09:42→20:50)
[2024-09-01] MEDS: Aspirin E.C. 81 MG Tablet PO (09:42)
[2024-09-01] MEDS: FLUTICASONE/UMECLIDIN/VILANTER 1 EACH BLST.W.DEV INHALATION (09:43)
[2024-09-01] MEDS: Ferrous Sulfate 325 MG Tablet PO (09:43)
--- NOTE | 2024-09-01 09:44 | PCM.PN.CARD ---
Subjective Subjective Patient seen and evaluated. Appears to be doing well from the cardiac standpoint Objective Data Vital Signs: Vital Signs Temp Pulse Resp BP Pulse Ox O2 Del Method O2 Flow Rate 97.5 F L 57 L 20 H 111/64 98 Nasal Cannula 4 09/01/24 09:00 09/01/24 09:00 09/01/24 09:00 09/01/24 09:00 09/01/24 09:00 09/01/24 09:00 09/01/24 09:00 FiO2 60 09/01/24 07:00 Oxygen Flow Rate (L/min) 4 Oxygen Delivery Method Nasal Cannula Weight: 168 lb 10.458 oz Body Mass Index (BMI) 28.9 Intake & Output: Intake and Output for Last 24 Hours 08/30/24 08/31/24 09/01/24 23:59 23:59 23:59 Intake Total 3696.92 / 3696.92 440 / 440 666.23 / 666.23 Output Total 400 / 400 0 / 0 Balance 3696.92 / 3696.92 40 / 40 666.23 / 666.23 Lab / Micro Data 09/01/24 04:15 09/01/24 04:15 Labs: Laboratory Results - last 24 hr 09/01/24 04:15: WBC 13.9 H, RBC 3.74 L, Hgb 11.7 L, Hct 37.9, MCV 101.3 H, MCH 31.3, MCHC 30.9 L, RDW Std Deviation 49.9 H, RDW Coeff of [place] 13.4, Plt Count 220, MPV 10.3, Immature Gran % (Auto) 0.500, Neut % (Auto) 80.9 H, Lymph % (Auto) 11.5 L, [place] % (Auto) 6.7, Eos % (Auto) 0.1, Baso % (Auto) 0.3, Absolute Neuts (auto) 11.2 H, Absolute Lymphs (auto) 1.59, Nucleated RBC % 0, Sodium 138, Potassium 4.6, Chloride 105, Carbon Dioxide 35.0 H, Anion Gap -2 L, BUN 14, Creatinine 0.64, Estim Creat Clear Calc 63.72, Est GFR (MDRD) Af Amer 117, Est GFR (MDRD) Non-Af 97, BUN/Creatinine Ratio 21.8 H, Glucose 159 H, Calcium 8.9 Micro: Microbiology 09/01/24 08:15 Mucosa - Nasopharyngeal Coronavirus COVID-19 PCR - Final ABG Data ABG results: ABG 09/01/24 09/01/24 09/01/24 01:46 03:29 08:05 Specimen Type ART ART ART Sample Site R Radial L Radial L Radial pH 7.17 L* 7.25 L 7.21 L Bicarbonate Actual 33.3 H 36.7 H 30.6 H Total CO2 36 39 33 Base Excess 5 H 10 H 3 H O2 Saturation 99 91 L 96 O2 % 50.0 35.0 40.0 ABG pCO2 90.6 H* 83.2 H* 77.1 H* ABG pO2 168 H 76 104 H Paresh Test Positive Positive Respiration Rate 12 12 18 O2 Delivery Device BiPAP BiPAP Not entered Vent Mode Not entered Not entered Not entered Tidal Volume 450.0 450.0 450.0 POC PEEP 8 12 8 Crit Call To/Read Back Yes Yes Yes Blood Gas Notified Whom dr conor Sánchez [facility] Blood Gas Notified Time 01:48:12 03:31:58 08:06:51 Clinical Comments 24 14 Cardiology Labs/Tests 09/01/24 01:46: pH 7.17 L*, Bicarbonate Actual 33.3 H, Base Excess 5 H, O2 Saturation 99, ABG pCO2 90.6 H*, ABG pO2 168 H, Paresh Test Positive 09/01/24 03:29: pH 7.25 L, Bicarbonate Actual 36.7 H, Base Excess 10 H, O2 Saturation 91 L, ABG pCO2 83.2 H*, ABG pO2 76, Paresh Test Positive 09/01/24 04:15: WBC 13.9 H, RBC 3.74 L, Hgb 11.7 L, Hct 37.9, MCV 101.3 H, MCH 31.3, MCHC 30.9 L, Plt Count 220, MPV 10.3, Immature Gran % (Auto) 0.500, Neut % (Auto) 80.9 H, Lymph % (Auto) 11.5 L, [place] % (Auto) 6.7, Eos % (Auto) 0.1, Baso % (Auto) 0.3, Absolute Neuts (auto) 11.2 H, Nucleated RBC % 0, Sodium 138, Potassium 4.6, Chloride 105, Carbon Dioxide 35.0 H, Anion Gap -2 L, BUN 14, Creatinine 0.64, Est GFR (MDRD) Af Amer 117, Est GFR (MDRD) Non-Af 97, BUN/Creatinine Ratio 21.8 H, Glucose 159 H, Calcium 8.9 09/01/24 08:05: pH 7.21 L, Bicarbonate Actual 30.6 H, Base Excess 3 H, O2 Saturation 96, ABG pCO2 77.1 H*, ABG pO2 104 H Rhythm: EKG: ECHO: Stress Test: Cardiac Cath: PCI: CT Surgery: Holter monitor: EPS: PPM: CXR: Chest CT Scan: Radiography Diagnostic Testing: Radiology Impression Chest X-Ray 09/01/24 08:10 IMPRESSION: Tiny left pleural effusion. Electronically Signed: Lucas Hernandez MD at 8:46 EST , Physical Exam Const alert, oriented x3 and no apparent distress General Appearance: cooperative HEENT hearing grossly normal bilaterally Head and Scalp: atraumatic Eyes EOMs intact bilaterally Neck General: normal visual inspection Chest inspection of chest normal and palpation of chest normal Resp normal respiratory effort Auscultation: clear to auscultation bilaterally Cardio regular rate, regular rhythm, S1 normal heart sound and S2 normal heart sound Jugular Venous Distention: JVD GI normal to inspection, nondistended, normoactive bowel sounds Extremity normal capillary refill and no pedal edema Peripheral Pulses: Yes pulses 2+ throughout and femoral pulses present Skin no rashes or lesions noted Neuro oriented x3 and CN's II-XII intact bilaterally Psych Appearance: grossly normal and appropriate Assessment & Plan Assessment/Plan (1) Atrial fibrillation with rapid ventricular response: PLAN: She does present with atrial fibrillation with a rapid ventricular response rate. She was noted to have ST depressions in the lateral leads and was hypotensive. I suspect some of this was due to dehydration. She underwent DC cardioversion which was unsuccessful. She was started on intravenous amiodarone and has converted back to sinus rhythm. My recommendation will be as follows: Continue Eliquis Metoprolol 50 mg twice a day Amiodarone 200 mg a day Echocardiogram to assess ventricular function DC intravenous amiodarone (2) Atherosclerotic heart disease of [place] coronary artery with unstable angina pectoris: PLAN: Patient has known atherosclerotic cardiovascular disease by cardiac catheterization a year ago which demonstrated moderate disease in the left anterior descending artery obtuse marginal branch as well as the septal bottom pounder cement shoes. Medical therapy was recommended. At this time therefore my recommendation will be to continue the current medical therapy. I do not think there is a reason for any invasive therapy or stress testing at this time. (3) Hypertension: PLAN: She does have a history of hypertension. Her blood pressure is under good control. Indeed she is somewhat hypotensive. I would recommend that we discontinue the Entresto and put her on losartan 50 mg a day. An echocardiogram is pending at this time.
[2024-09-01] MEDS: Amiodarone 200 MG Tablet PO (09:50)
[2024-09-01] MEDS: Ipratropium/Albuterol Sulfate 3 ML AMPUL.NEB INHALATION ×3 (11:58→19:06)
--- NOTE | 2024-09-01 14:16 | CASEMGMT ---
RN CM to pt room at this time to discuss DC planning. Pt has been working with PT/OT, see notes. Pt SO at bedside. Pt states that she still feels safe returning home with her SO at time of DC and again denies the need for HH, OP Tx, or CCN. This RN STELLA noted that the pt has been on around 4L of oxygen during hospitalization. [facility] reports that their most recent order states 2L continuous. Pt educated that [facility] nursing staff will test the pt prior to DC to see what she is currently demanding. Green sheet placed on chart to facilitate potential weekend DC. Pt and pt SO deny further questions or concerns at this time.
[2024-09-01] MEDS: Atorvastatin Calcium 20 MG Tablet PO (20:50)
[2024-09-02] VITALS (25 sets, daily range): BP systolic 124–167; BP diastolic 67–95; PULSE 60–82; RESP 12–28; TEMP 36.1–37.2; O2SAT 87–98; BMI 29.8
[2024-09-02 05:40] LABS: Absolute Lymphocyte Count 0.58 X10^3/uL (0.83-4.51); Absolute Neutrophil Count 8.9 X10^3/uL (2.0-7.7); Basophil# 0.01 X10^3/uL; Basophil% 0.1 % (0-1); Hematocrit 32.5 % (37-47); Hemoglobin 10.1 g/dL (12.0-15.0); Lymphocyte # 0.58 X10^3/ul (0.83-4.51); Lymphocyte % 5.8 % (19-41); Mean Corp Hgb Conc 31.1 g/dL (32-36); Mean Corpuscular Volume 99.7 fL (81-99); Mean Platelet Vol. 10.5 fl (6.2-12.0); NRBC Flagged by Analyzer 0 % (0-5); Neutrophil # 8.88 X10^3/uL (2.7-7.7); Neutrophil % 89.4 % (47-70); POSITIVE DIFFERENTIAL YES; Platelet Count 188 K/mm3 (150-450); RBC Distribution Width CV 13.1 % (11.6-14.6); RBC Distribution Width SD 48.2 fl (35.1-43.9); Red Blood Count 3.26 M/mm3 (4.2-5.4); White Blood Count 9.9 K/mm3 (4.4-11.0)
[2024-09-02 05:55] LABS: Anion Gap -1 (5-15); BUN 9 mg/dL (7-18); Calcium,Total 8.8 mg/dL (8.5-10.1); Chloride 103 mmol/L (98-107); Creatinine, Serum 0.64 mg/dL (0.55-1.02); EST Glomerular Filtration Rate 97 mL/min (>60); Est Glom Filt Rate - Afr Amer 117 mL/min (>60); Estimated Creatinine Clearance 65.51 ml/min; Glucose 160 mg/dL (74-106); Potassium 4.6 mmol/L (3.5-5.1); Sodium Level 136 mmol/L (136-145)
[2024-09-02] MEDS: Ipratropium/Albuterol Sulfate 3 ML AMPUL.NEB INHALATION ×2 (06:40→20:54)
[2024-09-02] MEDS: APIXABAN 5 MG TABLET PO ×2 (08:46→21:30)
[2024-09-02] MEDS: Amiodarone 200 MG Tablet PO (08:46)
[2024-09-02] MEDS: Ferrous Sulfate 325 MG Tablet PO (08:46)
[2024-09-02] MEDS: Aspirin E.C. 81 MG Tablet PO (08:46)
--- NOTE | 2024-09-02 09:12 | PN.CARD_ITS ---
Subjective Subjective Patient seen and evaluated. Doing well from the cardiac standpoint. Objective Data Vital Signs: Vital Signs Temp Pulse Resp BP Pulse Ox O2 Del Method O2 Flow Rate 97.8 F 70 24 H 153/93 H 93 Nasal Cannula 4 09/02/24 03:00 09/02/24 07:00 09/02/24 07:00 09/02/24 07:00 09/02/24 07:00 09/02/24 07:00 09/02/24 07:00 FiO2 40 09/02/24 05:00 Oxygen Flow Rate (L/min) 4 Oxygen Delivery Method Nasal Cannula Weight: 173 lb 11.588 oz Body Mass Index (BMI) 29.8 Intake & Output: Intake and Output for Last 24 Hours 08/31/24 09/01/24 09/02/24 23:59 23:59 23:59 Intake Total 440 / 440 906.23 / 906.23 Output Total 400 / 400 900 / 900 Balance 40 / 40 6.23 / 6.23 Lab / Micro Data 09/02/24 05:20 09/02/24 05:20 Labs: Laboratory Results - last 24 hr 09/02/24 05:20: WBC 9.9, RBC 3.26 L, Hgb 10.1 L, Hct 32.5 L, MCV 99.7 H, MCH 31.0, MCHC 31.1 L, RDW Std Deviation 48.2 H, RDW Coeff of Sarah 13.1, Plt Count 188, MPV 10.5, Immature Gran % (Auto) 0.700, Neut % (Auto) 89.4 H, Lymph % (Auto) 5.8 L, [place] % (Auto) 4.0, Eos % (Auto) 0.0, Baso % (Auto) 0.1, Absolute Neuts (auto) 8.9 H, Absolute Lymphs (auto) 0.58 L, Nucleated RBC % 0, Sodium 136, Potassium 4.6, Chloride 103, Carbon Dioxide 34.0 H, Anion Gap -1 L, BUN 9, Creatinine 0.64, Estim Creat Clear Calc 65.51, Est GFR (MDRD) Af Amer 117, Est GFR (MDRD) Non-Af 97, BUN/Creatinine Ratio 14.0, Glucose 160 H, Calcium 8.8 Micro: Microbiology 09/01/24 08:15 Mucosa - Nasopharyngeal Respiratory Panel (PCR) - Final 09/01/24 08:15 Mucosa - Nasopharyngeal Coronavirus COVID-19 PCR - Final Cardiology Labs/Tests 09/02/24 05:20: WBC 9.9, RBC 3.26 L, Hgb 10.1 L, Hct 32.5 L, MCV 99.7 H, MCH 31.0, MCHC 31.1 L, Plt Count 188, MPV 10.5, Immature Gran % (Auto) 0.700, Neut % (Auto) 89.4 H, Lymph % (Auto) 5.8 L, [place] % (Auto) 4.0, Eos % (Auto) 0.0, Baso % (Auto) 0.1, Absolute Neuts (auto) 8.9 H, Nucleated RBC % 0, Sodium 136, Potassium 4.6, Chloride 103, Carbon Dioxide 34.0 H, Anion Gap -1 L, BUN 9, Creatinine 0.64, Est GFR (MDRD) Af Amer 117, Est GFR (MDRD) Non-Af 97, BUN/Creatinine Ratio 14.0, Glucose 160 H, Calcium 8.8 Rhythm: EKG: ECHO: Stress Test: Cardiac Cath: PCI: CT Surgery: Holter monitor: EPS: PPM: CXR: Chest CT Scan: Radiography Diagnostic Testing: Radiology Impression Echocardiogram 08/31/24 15:39 Interpretation Summary Normal LV size. Left ventricular systolic function is normal. The left ventricular ejection fraction is 65 %. Mild-Moderate (1-2+) mitral valve insufficiency. Ordering Physician: Benji Knowles Performed By: Mariam Muniz RDCS Physical Exam Const alert, oriented x3 and no apparent distress General Appearance: cooperative HEENT hearing grossly normal bilaterally Head and Scalp: atraumatic Eyes EOMs intact bilaterally Neck General: normal visual inspection Chest inspection of chest normal and palpation of chest normal Resp normal respiratory effort Auscultation: clear to auscultation bilaterally Cardio regular rate, regular rhythm, S1 normal heart sound and S2 normal heart sound Jugular Venous Distention: JVD GI normal to inspection, nondistended, normoactive bowel sounds Extremity normal capillary refill and no pedal edema Peripheral Pulses: Yes pulses 2+ throughout and femoral pulses present Skin no rashes or lesions noted Neuro oriented x3 and CN's II-XII intact bilaterally Psych Appearance: grossly normal and appropriate Assessment & Plan Assessment/Plan (1) Atrial fibrillation with rapid ventricular response: PLAN: She does present with atrial fibrillation with a rapid ventricular response rate. She was noted to have ST depressions in the lateral leads and was hypotensive. I suspect some of this was due to dehydration. She underwent DC cardioversion which was unsuccessful. She was started on intravenous amiodarone and has converted back to sinus rhythm. * My recommendation will be as follows: Continue Eliquis * Metoprolol 50 mg twice a day * Amiodarone 200 mg a day * Echocardiogram demonstrated preserved left ventricular systolic function (2) Atherosclerotic heart disease of [place] coronary artery with unstable angina pectoris: PLAN: Patient has known atherosclerotic cardiovascular disease by cardiac catheterization a year ago which demonstrated moderate disease in the left anterior descending artery obtuse marginal branch as well as the septal product support engineer. Medical therapy was recommended. At this time therefore my recommendation will be to continue the current medical therapy. I do not think there is a reason for any invasive therapy or stress testing at this time. (3) Hypertension: PLAN: She does have a history of hypertension. Her blood pressure is under good control. I would recommend that we discontinue the Entresto and put her on losartan 50 mg a day. Her echocardiogram demonstrated preserved function.
[2024-09-02] MEDS: Losartan Potassium 25 MG Tablet PO (09:19)
[2024-09-02] MEDS: Metoprolol(XL)Succ 25 MG Tablet PO (11:48)
[2024-09-02] MEDS: 0.9% Saline Lock 10 ML Syringe IV ×3 (11:57→21:31)
--- NOTE | 2024-09-02 13:12 | PCM.PN.HOSP ---
Reason for Visit Reason for Visit: Diagnoses Essential (primary) hypertension (08/30/24) Atherosclerotic heart disease of [place] coronary artery with unstable angina pectoris (08/30/24) Unspecified atrial fibrillation (08/30/24) Acute and chronic respiratory failure with hypoxia (08/30/24) Acute and chronic respiratory failure with hypercapnia (08/30/24) Personal history of other diseases of the respiratory system (08/30/24) Objective Data Objective Data Vital Signs: Vital Signs Temp Pulse Resp BP Pulse Ox O2 Del Method O2 Flow Rate 97.9 F 81 28 H 158/78 H 90 Nasal Cannula 2 09/02/24 12:00 09/02/24 12:00 09/02/24 12:00 09/02/24 12:00 09/02/24 12:00 09/02/24 12:00 09/02/24 12:00 FiO2 40 09/02/24 05:00 Oxygen Flow Rate (L/min) 2 Oxygen Delivery Method Nasal Cannula Weight: 173 lb 11.588 oz Body Mass Index (BMI) 29.8 Intake & Output: Intake and Output for Last 24 Hours 08/31/24 09/01/24 09/02/24 23:59 23:59 23:59 Intake Total 440 / 440 906.23 / 906.23 1000 / 1000 Output Total 400 / 400 900 / 900 450 / 450 Balance 40 / 40 6.23 / 6.23 550 / 550 Lab / Micro Data 09/02/24 05:20 09/02/24 05:20 Labs: Laboratory Results - last 24 hr 09/02/24 05:20: WBC 9.9, RBC 3.26 L, Hgb 10.1 L, Hct 32.5 L, MCV 99.7 H, MCH 31.0, MCHC 31.1 L, RDW Std Deviation 48.2 H, RDW Coeff of Sarah 13.1, Plt Count 188, MPV 10.5, Immature Gran % (Auto) 0.700, Neut % (Auto) 89.4 H, Lymph % (Auto) 5.8 L, [place] % (Auto) 4.0, Eos % (Auto) 0.0, Baso % (Auto) 0.1, Absolute Neuts (auto) 8.9 H, Absolute Lymphs (auto) 0.58 L, Nucleated RBC % 0, Sodium 136, Potassium 4.6, Chloride 103, Carbon Dioxide 34.0 H, Anion Gap -1 L, BUN 9, Creatinine 0.64, Estim Creat Clear Calc 65.51, Est GFR (MDRD) Af Amer 117, Est GFR (MDRD) Non-Af 97, BUN/Creatinine Ratio 14.0, Glucose 160 H, Calcium 8.8 Micro: Microbiology 09/01/24 08:15 Mucosa - Nasopharyngeal Respiratory Panel (PCR) - Final 09/01/24 08:15 Mucosa - Nasopharyngeal Coronavirus COVID-19 PCR - Final Physical Exam Narrative Seen and examined. Patient overall did good on the ICU. Blood pressure little elevated. Patient was put back on losartan and Toprol-XL. Discussed with heavy equipment operator/paver. Physical exam General: Awake, alert oriented x 3 HEENT: Atraumatic, PERRLA, EOMI, Normocephalic Oral: No Gingival or Mucosal Lesions/ Ulcerations Neck: Supple, No JVD, Negative Carotid Bruits Chest wall/Lungs: Air entry diminished in bilateral lung bases. Bilateral expiratory rhonchi. Cardiovascular: A-fib, No M/G/R. No tachycardia or bradycardia. Abdomen: Bowel Sounds Present, Soft, Non Tender, Non-Distended : No dysuria. No renal angle tenderness. No suprapubic tenderness. Extremities: No edema, Capillary Refill Less than 3 Seconds Skin: No rashes, No breakdown Musculoskeletal: No Tenderness to Palpation of Joints or Extremities Neurological: Cranial nerves II-XII grossly intact, DTR 2+/4. No acute focal neurological deficit. Psych/Mental Status: Flat affect Assessment & Plan Assessment/Plan (1) History of emphysema: PLAN: Plan 69-year-old female was admitted with have A-fib with RVR complicated with hypotension that required cardioversion and started on amiodarone drip. #A-fib with RVR: The EKG shows slight aVR elevation with diffuse depression. STEMI was ruled out by STEMI on-call heavy equipment operator/paver. Patient was synchronized x 3 hide patient briefly was in sinus rhythm back in A-fib therefore started on amiodarone drip and anticoagulation with Eliquis. Patient was seen by heavy equipment operator/paver. Changed to IV amiodarone to amiodarone oral. Downgraded to PCU. Recent echo in April 2023 shows EF 60%,, mild MR, moderate pulmonary hypertension, moderate global RV systolic dysfunction mildly mildly enlarged stage I diastolic dysfunction, -Continue home beta-theodore, with close monitoring of blood pressure in the ICU 09/02: Probably patient got A-fib RVR from COPD exacerbation: Heart rate is controlled and blood pressure elevated. Losartan and Toprol-XL resumed at lower dose elevated gradually increase it as per tolerated. #Coronary artery disease -She had a back pain at the time of presentation, initial troponin was normal repeat troponin went up probably due to cardioversion. -Continue home aspirin #COPD/emphysema exacerbation -Patient is being managed on scheduled bronchodilator, IV Solu-Medrol, Mucinex, incentive spirometry and Pep. Continue oxygen supplementation -Continues to smoke, importance of quitting smoking given the COPD was discussed and emphasized Advised to follow-up with pulmonary clinic #DVT prophylaxis -Already anticoagulated with Eliquis Charges/Coding Visit Charges Inpatient E&M: 27271 Subs Hosp L2
--- NOTE | 2024-09-02 13:23 | PCM.PN.TICU ---
Objective Data Objective Data Vital Signs: Vital Signs Last response Temperature 36.6 C 09/02/24 12:00 Temperature Source Temporal 09/02/24 12:00 Pulse Rate 81 09/02/24 12:00 Pulse Strength Normal (2+) 09/01/24 19:35 Respiratory Rate 28 H 09/02/24 12:00 Respiratory Effort Short of Breath 09/02/24 12:00 Respiratory Depth Shallow 09/02/24 12:00 Respiratory Pattern Tachypnea 09/02/24 12:00 Blood Pressure 158/78 H 09/02/24 12:00 Blood Pressure Mean 104 09/02/24 12:00 Blood Pressure Source Monitor 09/02/24 12:00 Blood Pressure Position Semi-Fowlers 09/02/24 12:00 Blood Pressure Location Left Arm 09/02/24 12:00 Pulse Ox 90 09/02/24 12:00 Oxygen Delivery Method Nasal Cannula 09/02/24 12:00 Oxygen Flow Rate (L/min) 2 09/02/24 12:00 Fraction of Inspired Oxygen (FIO2) 40 09/02/24 05:00 EtCo2 (Normal 35-45 , high quality CPR 10-20 & ROSC>/=40mmHg 29 08/30/24 14:35 I&O: I&O Last 24 Hours 09/01/24 09/02/24 09/02/24 23:59 11:59 23:59 Intake Total 240 / 906.23 1000 / 1000 Output Total 900 / 900 450 / 450 Balance -660 / 6.23 -450 / 550 1000 / 550 I&O: Total Stay 08/30/24 14:21 thru 09/02/24 12:00 Intake Total 6043.15 Output Total 1750 Balance 4293.15 Current Meds Ordered / Administered: Current meds ordered / Administered Generic Name Dose Route Start Last Admin Trade Name Freq PRN Reason Stop Dose Admin Albuterol Sulfate 2.5 mg 08/30/24 18:36 09/01/24 08:27 Albuterol 2.5 Mg/3 Ml Vial.Neb. INHALATION 2.5 mg Q4H PRN Administration Sob &/Or Wheezing Albuterol/Ipratropium 3 ml 09/01/24 11:00 09/02/24 06:40 Ipratropium/Albuterol Sulfate 3 Ml Ampul.Neb INHALATION 3 ml Q4HWA.RT MIGUEL Administration Amiodarone HCl 200 mg 08/31/24 10:00 09/02/24 08:46 Amiodarone 200 Mg Tablet PO 200 mg DAILY MIGUEL Administration Apixaban 5 mg 08/30/24 22:00 09/02/24 08:46 Apixaban 5 Mg Tablet PO 5 mg BID MIGUEL Administration Aspirin 81 mg 08/31/24 08:00 09/02/24 08:46 Aspirin E.C. 81 Mg Tablet PO 81 mg DAILY@0800 MIGUEL Administration Atorvastatin Calcium 20 mg 08/30/24 22:00 09/01/24 20:50 Atorvastatin Calcium 20 Mg Tablet PO 20 mg QHS MIGUEL Administration Ferrous Sulfate 325 mg 08/31/24 08:00 09/02/24 08:46 Ferrous Sulfate 325 Mg Tablet PO 325 mg DAILYCM MIGUEL Administration Furosemide 40 mg 09/01/24 10:00 Furosemide 40 Mg Tablet PO DAILY [facility] Guaifenesin 2 tablet 09/02/24 13:15 Guaifenesin/D-Methorphan Tab.Sr.12h PO BID [facility] Sodium Chloride 100 mls @ 15 mls/hr 08/30/24 18:33 IV .Q6H40M PRN Saline Flush Sodium Chloride 100 mls @ 15 mls/hr 08/30/24 18:33 IV .Q6H40M PRN Additional IVPB Infusion Losartan Potassium 25 mg 09/02/24 08:00 09/02/24 09:19 Losartan Potassium 25 Mg Tablet PO 25 mg BREAKFAST MIGUEL Administration Protocol Methylprednisolone 40 mg 09/01/24 08:20 09/02/24 05:17 Methylprednisolone 40 Mg/Ml Vial IV 40 mg Q8 MIGUEL Administration Metoprolol Succinate 50 mg 09/02/24 22:00 Metoprolol(Xl)Succ 50 Mg Tablet PO BID [facility] Protocol Nicotine 21 mg 09/02/24 10:00 09/02/24 11:48 Nicotine 21 Mg Patch TD 21 mg DAILY MIGUEL Administration Sodium Chloride 10 - 40 ml 08/30/24 18:33 09/02/24 11:57 0.9% Saline Lock 10 Ml Syringe IV 10 ml UD PRN Administration SALINE FLUSH Lab / Micro Data 09/02/24 05:20 09/02/24 05:20 Labs: Laboratory Results - last 24 hr 09/02/24 05:20: WBC 9.9, RBC 3.26 L, Hgb 10.1 L, Hct 32.5 L, MCV 99.7 H, MCH 31.0, MCHC 31.1 L, RDW Std Deviation 48.2 H, RDW Coeff of Sarah 13.1, Plt Count 188, MPV 10.5, Immature Gran % (Auto) 0.700, Neut % (Auto) 89.4 H, Lymph % (Auto) 5.8 L, [place] % (Auto) 4.0, Eos % (Auto) 0.0, Baso % (Auto) 0.1, Absolute Neuts (auto) 8.9 H, Absolute Lymphs (auto) 0.58 L, Nucleated RBC % 0, Sodium 136, Potassium 4.6, Chloride 103, Carbon Dioxide 34.0 H, Anion Gap -1 L, BUN 9, Creatinine 0.64, Estim Creat Clear Calc 65.51, Est GFR (MDRD) Af Amer 117, Est GFR (MDRD) Non-Af 97, BUN/Creatinine Ratio 14.0, Glucose 160 H, Calcium 8.8 Micro: Microbiology 09/01/24 08:15 Mucosa - Nasopharyngeal Respiratory Panel (PCR) - Final 09/01/24 08:15 Mucosa - Nasopharyngeal Coronavirus COVID-19 PCR - Final Assessment and Plan . Assessment and plan: Critical Care Time: The entirety of this encounter was done via Telemedicine
[2024-09-02] MEDS: guaiFENesin/D-Methorphan TAB.SR.12H 2 TABLET PO (21:30)
[2024-09-02] MEDS: Atorvastatin Calcium 20 MG Tablet PO (21:31)
[2024-09-02] MEDS: Metoprolol(XL)Succ 50 MG Tablet PO (21:32)
[2024-09-03] VITALS (13 sets, daily range): BP systolic 131–164; BP diastolic 75–96; PULSE 55–71; RESP 12–25; TEMP 36.6–36.9; O2SAT 86–96; BMI 29.3
[2024-09-03] MEDS: 0.9% Saline Lock 10 ML Syringe IV (05:40)
[2024-09-03] MEDS: Polyethylene Glycol 3350 17 GM PACKET PO (05:46)
[2024-09-03 06:33] LABS: Absolute Neutrophil Count 11.5 X10^3/uL (2.0-7.7); Basophil# 0.01 X10^3/uL; Basophil% 0.1 % (0-1); Hematocrit 33.8 % (37-47); Hemoglobin 10.7 g/dL (12.0-15.0); Lymphocyte % 5.5 % (19-41); Mean Corp Hgb Conc 31.7 g/dL (32-36); Mean Platelet Vol. 10.8 fl (6.2-12.0); Monocyte# 0.35 X10^3/uL; Monocyte% 2.8 % (0-10); NRBC Flagged by Analyzer 0 % (0-5); Neutrophil # 11.53 X10^3/uL (2.7-7.7); Neutrophil % 90.8 % (47-70); Platelet Count 216 K/mm3 (150-450); RBC Distribution Width CV 13.4 % (11.6-14.6); RBC Distribution Width SD 48.2 fl (35.1-43.9); Red Blood Count 3.45 M/mm3 (4.2-5.4); White Blood Count 12.7 K/mm3 (4.4-11.0)
[2024-09-03 07:10] LABS: Anion Gap 1 (5-15); BUN 16 mg/dL (7-18); BUN/Creat Ratio 22.6 RATIO (10-20); Calcium,Total 8.9 mg/dL (8.5-10.1); Chloride 102 mmol/L (98-107); Creatinine, Serum 0.71 mg/dL (0.55-1.02); EST Glomerular Filtration Rate 86 mL/min (>60); Est Glom Filt Rate - Afr Amer 105 mL/min (>60); Estimated Creatinine Clearance 65.02 ml/min; Glucose 149 mg/dL (74-106); Potassium 4.5 mmol/L (3.5-5.1); Sodium Level 136 mmol/L (136-145)
[2024-09-03] MEDS: Ipratropium/Albuterol Sulfate 3 ML AMPUL.NEB INHALATION ×3 (07:44→14:11)
[2024-09-03] MEDS: Furosemide 40 MG Tablet PO (09:35)
[2024-09-03] MEDS: Metoprolol(XL)Succ 50 MG Tablet PO (09:35)
[2024-09-03] MEDS: Aspirin E.C. 81 MG Tablet PO (09:36)
[2024-09-03] MEDS: guaiFENesin/D-Methorphan TAB.SR.12H 2 TABLET PO (09:36)
[2024-09-03] MEDS: Losartan Potassium 25 MG Tablet PO (09:36)
[2024-09-03] MEDS: Ferrous Sulfate 325 MG Tablet PO (09:36)
[2024-09-03] MEDS: Amiodarone 200 MG Tablet PO (09:36)
[2024-09-03] MEDS: APIXABAN 5 MG TABLET PO (09:36)
--- NOTE | 2024-09-03 10:35 | DCINST_ITS ---
Discharge Instructions DC O2, CPAP, BIPAP needs RN Home O2 Qualification: Home O2 Qualification: Is the patient on home oxygen Yes 09/03/24 12:50 Home O2 Qualification: AT REST 1-Pulse Ox at rest 95 09/03/24 12:50 1- Oxygen flow rate at rest 2 09/03/24 12:50 Home O2 Qualification: WITH AMBULATION 1- Pulse Ox with ambulation 86 09/03/24 12:50 1- Oxygen Flow Rate with 2 09/03/24 12:50 ambulation 2- Pulse Ox with ambulation 87 09/03/24 12:50 2- Oxygen Flow Rate with 4 09/03/24 12:50 ambulation 3- Pulse Ox with ambulation 92 09/03/24 12:50 3- Oxygen Flow Rate with 6 09/03/24 12:50 ambulation PSN CPAP & BiPAP: BiPAP & CPAP Settings per PSN Mode AVAPS 09/03/24 03:00 Bipap Delivery Device Face Mask 09/03/24 03:00 BiPAP Expiratory Pressure 8 09/03/24 03:00 BiPAP Rate 12 09/03/24 03:00 Fraction of Inspired Oxygen ( 36 09/03/24 03:00 FIO2) Home O2 Discharge instructions: Yes Type of respiratory needs?: Oxygen Oxygen frequency: Continuous Continuous oxygen liters per minute: 4 L/m Follow Up Care Test Results: Test results from this visit will be discussed in further detail at your follow- up appointment, if applicable. Discharge Plan Admission Admit Date/Time: 08/30/24 16:46 Attending Provider: Benji Knowles Primary Care Provider: Michelle Barrios Consulting Providers: Mickie Connell; Christiano Rodney; Benjie Mortensen; Alexandre Faulkner; Adan iSlver; Isacc Stover; Kameron Brooke; Christiano Salmeron; Axel Weir; Roshan Huddleston; Marcia Li; Vahid Kemp; Edmundo Nunez; Som Chua; Mihaela Ballesteros; Norma Mario; Javier Barrios; Nate Valdes; Srinath Bell; Colten Villalba; Della Champagne; Colt Fishman; Ismael Miranda; Elier Funez Instructions Additional Instructions / Restrictions: Patient needs to follow-up forest nursery worker either in [place] pulmonology or outside in 2 weeks. She has advanced COPD /Emphysema. Continue incentive spirometry and PEP for 1 week Discharge Orders/Prescriptions Prescriptions: New amiodarone 200 mg Tablet 200 mg PO DAILY 30 Days Qty: 30 1RF dextromethorphan-guaifenesin 60-1,200 mg tablet extended release 12 hr 1 tab PO BID 7 Days Qty: 14 0RF lactulose 20 gram/30 mL Solution 10 g PO BID PRN (Reason: constipation) Qty: 1500 0RF nicotine 21 mg/24 hr Patch 24 Hour 21 mg transdermal DAILY 28 Days Qty: 28 0RF prednisone 20 mg tablet 40 mg PO DAILY 5 Days Qty: 10 0RF Continued sacubitril-valsartan [Entresto] 24-26 mg tablet 1 tab PO BID Patient Comments: TAKE 1 TABLET BY MOUTH TWICE A DAY ferrous sulfate 325 mg (65 mg iron) tablet 325 mg PO DAILY Patient Comments: TAKE 1 TABLET BY MOUTH EVERY DAY WITH FOOD cholecalciferol (vitamin D3) 50 mcg (2,000 unit) capsule 50 mcg PO DAILY Patient Comments: TAKE 1 CAPSULE BY MOUTH EVERY DAY atorvastatin 20 mg Tablet 20 mg PO QHS 30 Days Qty: 30 0RF aspirin 81 mg Tablet,Delayed Release (Dr/Ec) 81 mg PO DAILY@0800 30 Days Qty: 30 0RF Eliquis 5 mg tablet 5 mg PO BID torsemide 20 mg tablet 20 mg PO DAILY Trelegy Ellipta 100-62.5-25 mcg blister with device 1 ea INHALATION DAILY Trelegy Ellipta 100-62.5-25 mcg blister with device 1 inh inhalation DAILY metoprolol succinate 50 mg Tablet Extended Release 24 Hr 50 mg PO BID 30 Days Qty: 60 0RF Rx Instructions: Hold for heart less than 50 or systolic blood pressure less than 110 mmHg. Referrals / Follow Up: Michelle Barrios DO [Primary Care Provider] - Benjie Mortensen MD [Med Staff - Active Staff] - Within 1 Month Kameron Brooke DO [Med Staff - Active Staff] - Within 2 Weeks Disposition Disposition (needs filled in before D/C Order can be placed): Home, Self Care
[2024-09-03] MEDS: Senna/Docusate Sodium 1 Tablet 2 TABLET PO (12:39)
--- NOTE | 2024-09-03 14:34 | NURSING ---
updated oxygen prescription faxed to [facility].
--- NOTE | 2024-09-03 14:40 | DS.PCM_ITS ---
Providers Date of Admission: 08/30/24 Date of Discharge: 09/03/24 Primary Care Physician: Dr. Michelle Barrios, Consultations 08/30/24 18:25 Consult: Cardiology Routine Consulting Provider: Benjie Mortensen Reason for Consult: Afib RVR EMERGENT Consult: Yes MD Notified: Yes Date Notified: 08/30/24 Time Notified: 16:52 Method of Notification: ED Physician Initiated 09/01/24 07:56 Consult: [employer] Trainer / Pulmonary Medicine Routine Consulting Provider: Intensivists/Pulmonary Med Reason for Consult: respiratory distress/CODP exac EMERGENT Consult: No MD Notified: Yes Date Notified: 09/01/24 Time Notified: 07:57 Method of Notification: Verbal Reason For Visit: AFIB Diagnosis Discharge Diagnosis (1) History of emphysema: Status: Acute Code(s): Z87.09 - Personal history of other diseases of the respiratory system Plan 69-year-old female was admitted with have A-fib with RVR complicated with hypotension that required cardioversion and started on amiodarone drip. #A-fib with RVR: The EKG shows slight aVR elevation with diffuse depression. STEMI was ruled out by STEMI on-call commission for the blind director. Patient was synchronized x 3 hide patient briefly was in sinus rhythm back in A-fib therefore started on amiodarone drip and anticoagulation with Eliquis. Patient was seen by commission for the blind director. Changed to IV amiodarone to amiodarone oral. Downgraded to PCU. Recent echo in April 2023 shows EF 60%,, mild MR, moderate pulmonary hypertension, moderate global RV systolic dysfunction mildly mildly enlarged stage I diastolic dysfunction, -Continue home beta-theodore, with close monitoring of blood pressure in the ICU 09/02: Probably patient got A-fib RVR from COPD exacerbation: Heart rate is controlled and blood pressure elevated. Losartan and Toprol-XL resumed at lower dose elevated gradually increase it as per tolerated. 09/03: At times, patient heart rate goes 55 but otherwise in 60s and low 70s. BP controlled 131/75. Advised to hold metoprolol hold for heart less than 50 or systolic blood pressure less than 100 mmHg. Prescription given for amiodarone. #Coronary artery disease -She had a back pain at the time of presentation, initial troponin was normal repeat troponin went up probably due to cardioversion. -Continue home aspirin Chronic HFpEF/hypertension: Patient also on Entresto, and torsemide, resumed. #COPD/emphysema exacerbation -Patient is being managed on scheduled bronchodilator, IV Solu-Medrol, Mucinex, incentive spirometry and Pep. Continue oxygen supplementation -Continues to smoke, importance of quitting smoking given the COPD was discussed and emphasized Advised to follow-up with pulmonary clinic 09/03: Patient given prescription for burst therapy of prednisone, Mucinex DM. Continue incentive spirometry and PEP for 1 week #DVT prophylaxis -Already anticoagulated with Eliquis Discharge medication reconciliation done. Discharge follow-up instructions completed. Discharge process discussed with the patient and all questions were answered to patient's satisfaction. Follow with PCP in 1 to 2 weeks Total time spent, exact 35 minutes on discharge meds reconciliation, examination, coordination of care with nurses and ancillary staff, review of imaging and blood test and discussion with the patient on follow-up instructions. Medications at Discharge Home Medications ferrous sulfate 325 mg (65 mg iron) tablet 325 mg PO DAILY anemia 01/18/23 sacubitril 24 mg-valsartan 26 mg tablet (Entresto) 1 tab PO BID heart 01/18/23 cholecalciferol (vitamin D3) 50 mcg (2,000 unit) capsule 50 mcg PO DAILY supplement 04/29/23 aspirin 81 mg tablet,delayed release 81 mg PO DAILY@0800 heart health 30 days #30 tabs 04/30/23 atorvastatin 20 mg tablet 20 mg PO QHS cholesterol 30 days #30 tabs 04/30/23 apixaban 5 mg tablet (Eliquis) 5 mg PO BID blood thinner 08/30/24 fluticasone fur. 100 mcg-umeclid 62.5 mcg-vilant 25 mcg inhalat.powder (Trelegy Ellipta) 1 ea inhalation DAILY wheezing 08/30/24 torsemide 20 mg tablet 20 mg PO DAILY diuretic 08/30/24 fluticasone fur. 100 mcg-umeclid 62.5 mcg-vilant 25 mcg inhalat.powder (Trelegy Ellipta) 1 inh inhalation DAILY COPD 08/31/24 amiodarone 200 mg tablet 200 mg PO DAILY 30 days #30 tabs 09/03/24 dextromethorphan-guaifenesin ER 60 mg-1,200 mg tab,extend release,12hr 1 tab PO BID 7 days #14 tabs 09/03/24 lactulose 20 gram/30 mL oral solution 10 g (15 mL) PO BID PRN constipation #1,500 mL 09/03/24 metoprolol succinate 50 mg tablet,extended release 24 hr 50 mg PO BID blood pressure 30 days #60 tabs 09/03/24 nicotine 21 mg/24 hr daily transdermal patch 21 mg transdermal DAILY 28 days #28 ea 09/03/24 prednisone 20 mg tablet 40 mg (2 x 20 mg) PO DAILY 5 days #10 tabs 09/03/24 Physical Exam Narrative Seen and examined. Patient overall did good on the ICU. Blood pressure little elevated. Patient was put back on losartan and Toprol-XL. Discussed with commission for the blind director. Patient continues to smoke less than a pack per day. Advised to quit Physical exam General: Awake, alert oriented x 3 HEENT: Atraumatic, PERRLA, EOMI, Normocephalic Oral: No Gingival or Mucosal Lesions/ Ulcerations Neck: Supple, No JVD, Negative Carotid Bruits Chest wall/Lungs: Air entry diminished in bilateral lung bases. Bilateral expiratory rhonchi. Cardiovascular: A-fib, No M/G/R. No tachycardia or bradycardia. Abdomen: Bowel Sounds Present, Soft, Non Tender, Non-Distended : No dysuria. No renal angle tenderness. No suprapubic tenderness. Extremities: No edema, Capillary Refill Less than 3 Seconds Skin: No rashes, No breakdown Musculoskeletal: No Tenderness to Palpation of Joints or Extremities Neurological: Cranial nerves II-XII grossly intact, DTR 2+/4. No acute focal neurological deficit. Psych/Mental Status: Flat affect Weight / BMI Weight Weight: 171 lb 1.259 oz Body Mass Index (BMI) 29.3 ABG / Lab / Microbiology Data 09/03/24 06:05 09/03/24 06:05 Laboratory: Laboratory Results - last 24 hr 09/03/24 06:05: WBC 12.7 H, RBC 3.45 L, Hgb 10.7 L, Hct 33.8 L, MCV 98.0, MCH 31.0, MCHC 31.7 L, RDW Std Deviation 48.2 H, RDW Coeff of Sarah 13.4, Plt Count 216, MPV 10.8, Immature Gran % (Auto) 0.800, Neut % (Auto) 90.8 H, Lymph % (Auto) 5.5 L, Greene % (Auto) 2.8, Eos % (Auto) 0.0, Baso % (Auto) 0.1, Absolute Neuts (auto) 11.5 H, Absolute Lymphs (auto) 0.70 L, Nucleated RBC % 0, Sodium 136, Potassium 4.5, Chloride 102, Carbon Dioxide 34.0 H, Anion Gap 1 L, BUN 16, Creatinine 0.71, Estim Creat Clear Calc 65.02, Est GFR (MDRD) Af Amer 105, Est GFR (MDRD) Non-Af 86, BUN/Creatinine Ratio 22.6 H, Glucose 149 H, Calcium 8.9 Microbiology: Microbiology 09/02/24 11:25 Sputum, Expectorated/Coughed Gram Stain - Final 09/02/24 11:25 Sputum, Expectorated/Coughed Respiratory Culture - Preliminary Appears to be normal respiratory cynthia. Further studies to follow. 09/01/24 08:15 Mucosa - Nasopharyngeal Respiratory Panel (PCR) - Final 09/01/24 08:15 Mucosa - Nasopharyngeal Coronavirus COVID-19 PCR - Final D/C Instructions DC O2, CPAP, BIPAP Needs RN Home O2 Qualification: Home O2 Qualification: Is the patient on home oxygen Yes 09/03/24 12:50 Home O2 Qualification: AT REST 1-Pulse Ox at rest 95 09/03/24 12:50 1- Oxygen flow rate at rest 2 09/03/24 12:50 Home O2 Qualification: WITH AMBULATION 1- Pulse Ox with ambulation 86 09/03/24 12:50 1- Oxygen Flow Rate with 2 09/03/24 12:50 ambulation 2- Pulse Ox with ambulation 87 09/03/24 12:50 2- Oxygen Flow Rate with 4 09/03/24 12:50 ambulation 3- Pulse Ox with ambulation 92 09/03/24 12:50 3- Oxygen Flow Rate with 6 09/03/24 12:50 ambulation PSN CPAP & BiPAP: BiPAP & CPAP Settings per PSN Mode AVAPS 09/03/24 03:00 Bipap Delivery Device Face Mask 09/03/24 03:00 BiPAP Expiratory Pressure 8 09/03/24 03:00 BiPAP Rate 12 09/03/24 03:00 Fraction of Inspired Oxygen ( 36 09/03/24 03:00 FIO2) Home O2 Discharge instructions: Yes Type of respiratory needs?: Oxygen Oxygen frequency: Continuous Continuous oxygen liters per minute: 4 L/m DC home with Oxygen: Yes Home O2 MD Review: I have reviewed the oxygen testing, and the patient qualifies for home oxygen equipment and portability. The patient is mobile in the home and the community. Meaningful Use Info Meaningful Use Meaningful Use Diagnoses (Choose all that apply): None applicable Ischemic Stroke Statin Dosing Therapy Reference: STATIN DOSE THERAPY REFERENCE: * Patients > 75 years receive moderate or high dose statin therapy. * Patients 75 years or YOUNGER should receive HIGH intensity statin dose unless contraindicated. You will be required to document reason for non-treatment if statin daily dose does not meet guidelines. HIGH DOSE STATIN THERAPY DAILY Atorvastatin > than or = to 40 mg Rosuvastatin > than or = to 20 mg Amlodipine + Atorvastatin > than or = to 2.5/40 mg Ezetimibe + Simvastatin 10/80 mg Simvastatin 80mg Discharge Plan Admission Admit Date/Time: 08/30/24 16:46 Primary Reason for Your Visit: A-fib RVR, COPD exacerbation Attending Provider: Benji Knowles Primary Care Provider: Michelle Barrios Consulting Providers: Mickie Connell; Christiano Rodney; Benjie Mortensen; Alexandre Faulkner; Adan Silver; Isacc Stover; Kameron Brooke; Christiano Salmeron; Axel Weir; Roshan Huddleston; Marcia Li; Vahid Kemp; Edmundo Nunez; Som Chua; Mihaela Ballesteros; Norma Mario; Javier Barrios; Nate Valdes; Srinath Bell; Colten Villalba; Della Champagne; Colt Fishman; Ismael Miranda; Elier Funez Instructions Additional Instructions / Restrictions: Patient needs to follow-up with 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 She has advanced COPD /Emphysema. Patient also follows commission for the blind director in [place]. Continue incentive spirometry and PEP for 1 week Discharge Orders/Prescriptions Prescriptions: New amiodarone 200 mg Tablet 200 mg PO DAILY 30 Days Qty: 30 1RF dextromethorphan-guaifenesin 60-1,200 mg tablet extended release 12 hr 1 tab PO BID 7 Days Qty: 14 0RF lactulose 20 gram/30 mL Solution 10 g PO BID PRN (Reason: constipation) Qty: 1500 0RF nicotine 21 mg/24 hr Patch 24 Hour 21 mg transdermal DAILY 28 Days Qty: 28 0RF prednisone 20 mg tablet 40 mg PO DAILY 5 Days Qty: 10 0RF Continued sacubitril-valsartan [Entresto] 24-26 mg tablet 1 tab PO BID Patient Comments: TAKE 1 TABLET BY MOUTH TWICE A DAY ferrous sulfate 325 mg (65 mg iron) tablet 325 mg PO DAILY Patient Comments: TAKE 1 TABLET BY MOUTH EVERY DAY WITH FOOD cholecalciferol (vitamin D3) 50 mcg (2,000 unit) capsule 50 mcg PO DAILY Patient Comments: TAKE 1 CAPSULE BY MOUTH EVERY DAY atorvastatin 20 mg Tablet 20 mg PO QHS 30 Days Qty: 30 0RF aspirin 81 mg Tablet,Delayed Release (Dr/Ec) 81 mg PO DAILY@0800 30 Days Qty: 30 0RF Eliquis 5 mg tablet 5 mg PO BID torsemide 20 mg tablet 20 mg PO DAILY Trelegy Ellipta 100-62.5-25 mcg blister with device 1 ea INHALATION DAILY Trelegy Ellipta 100-62.5-25 mcg blister with device 1 inh inhalation DAILY metoprolol succinate 50 mg Tablet Extended Release 24 Hr 50 mg PO BID 30 Days Qty: 60 0RF Rx Instructions: Hold for heart less than 50 or systolic blood pressure less than 110 mmHg. Referrals / Follow Up: Benjie Mortensen MD [Med Staff - Active Staff] - Within 1 Month Michelle Barrios DO [Primary Care Provider] - Disposition Disposition (needs filled in before D/C Order can be placed): Home, Self Care Charges/Coding Visit Charges Inpatient E&M: 98251 Disch Hosp >30min
== END 2024-09-03 17:06 | disposition home or self-care (01) | DRG 308 ==
LOC: ED 15:08 → ICU 17:36 → PCU 08-31 12:56 → ICU 09-01 02:44 → PCU 09-03 12:50 → ICU 09-04 15:25
PROVIDERS: Internal Medicine; Admitting Provider Internal Medicine; Emergency Provider Emergency Medicine; Visit Provider Internal Medicine
DX: I48.91 Unspecified atrial fibrillation (principal); J96.22 Acute and chronic respiratory failure with hypercapnia; J96.21 Acute and chronic respiratory failure with hypoxia; I50.32 Chronic diastolic (congestive) heart failure; J44.1 Chronic obstructive pulmonary disease with (acute) exacerbation; I25.110 Atherosclerotic heart disease of native coronary artery with unstable angina pectoris; J96.11 Chronic respiratory failure with hypoxia; I11.0 Hypertensive heart disease with heart failure; I73.9 Peripheral vascular disease, unspecified; J43.9 Emphysema, unspecified; F41.9 Anxiety disorder, unspecified; M54.9 Dorsalgia, unspecified; F17.210 Nicotine dependence, cigarettes, uncomplicated; I95.9 Hypotension, unspecified; I70.1 Atherosclerosis of renal artery; I77.1 Stricture of artery; E86.0 Dehydration; Z11.52 Encounter for screening for COVID-19; Z99.81 Dependence on supplemental oxygen; Z79.82 Long term (current) use of aspirin; Z79.01 Long term (current) use of anticoagulants; Z79.51 Long term (current) use of inhaled steroids; Z79.899 Other long term (current) drug therapy
CPT/HCPCS: 36415; 36600; 71045; 71275; 80048; 80053; 81001; 82248; 82803; 83605; 83735; 84100; 84443; 84484; 85025; 85610; 85730; 87070; 87205; 87633; 87635; 93005; 93306; 94002; 94003; 94640; 94667; 94668; 94762; 97110; 97116; 97161; 97165; 97530; 97535; 97802; 99252; 99285; 99406; Q9967; A4216; G0463

== ENCOUNTER 2025-02-25 12:28 | Emergency (ER) | payer MEDICARE, SELFPAY ==
[2025-02-25 12:29] VITALS: BP 112/70; PULSE 74; RESP 18; TEMP 36.8; O2SAT 96; BMI 27.9
--- OUTSIDE RECORDS SUMMARY | 2025-02-25 13:08 | XMS RPT_ITS | CCD ---
Author Organization [facility] Care Team Providers Care R[facility] Women Services Name Role Phone THONG COSBY, DR PEREA Primary Care Physician Dr. Eliazar Barrios Primary Care Provider [phone] Dr. Silver Harris Emergency Provider Dr. Marixa Gama Admit Provider Dr. Marixa Gama Attending Provider [phone] Marixa Gama Other Provider Jesus, Dr. Canales Other Provider Dr. Marion Muñiz Attending Provider Dr. Marion Muñiz Other Provider [phone] Jesus, Dr. Canales Attending Provider [phone] THONG COSBY, DR PEREA Primary Care Unavailable THONG DO, DR PEREA Attending Unavailable THONG DO, DR PEREA Primary Care Unavailable THONG DO, DR PEREA Attending Unavailable THONG DO, DR PEREA Primary Care Unavailable REBECCA NAZARIO MD Attending Unavailable RAHUL CHURCHILL MD Attending Unavailable THONG DO, DR PEREA Primary Care Unavailable THONG DO, DR PEREA Attending Unavailable THONG DO, DR PEREA Primary Care Unavailable THONG DO, DR PEREA Attending Unavailable THONG DO, DR PEREA Primary Care Unavailable STEPH DEL ROSARIO Attending Unavailab le THONG DO, DR PEREA Primary Care Unavailable THONG DO, DR PEREA Primary Care Unavailable MYA HOLDER Admitting Unaalley KINNEY MD FACP, JAVID Tierney Attending Unavail able THONG DO, DR PEREA Attending Unavailable THONG DO, DR PEREA Primary Care Unavailable THONG DO, DR PEREA Primary Care Unavailable THONG DO, DR PEREA Attending Unavailable THONG DO, DR PEREA Primary Care Unavailable STEPH DEL ROSARIO Attending Unavailab le Connell, Achintya Attending Unavailable Eliazar Barrios Primary Care Unavailable Connell, Achintya Admitting Unavailable Eliazar Barrios Primary Care Unavailable Balbina, Orland Consulting Unavailable Perry, Benji Attending Unavailable Connell, Achintya Consulting Unavailable Perry, Benji Consulting Unavailable Balbina, Benjie Attending Unavailable Alexandre Faulkner Consulting Unavailable Silver, Consulting Unavailable Isacc Stover Consulting Unavailable Kameron Brooke Consulting Unavailable Christiano Salmeron P Consulting Unavailable Axel Weir Consulting Unavailable Flaquito, Roshan Consulting Unavailable Habtegebrdmitriy, Marcia Consulting Unavailab le Dand, Vahid Consulting Unavailable Nunez, Edmundo Consulting Unavailable Som Chua Consulting Unavailable Lesli, Mihaela Consulting Unavailable Aljundi, Lamia Consulting Unavailable Denis, Javier Consulting Unavailable Irukulla, Nate Consulting Unavailable Arabella, Srinath Consulting Unavailable Dhesi, Colten Consulting Unavailable Champagne, Susue Consulting Unavailable Fernstrom, Colt Consulting Unavailable Ruben, Ismael Consulting Unavailable Elier Funez Consulting Unavailable Christiano Rodney Consulting Unavailable Balbina, Benjie Referring Unavailable Kameron Brooke Attending Unavailable Connell, Achintya Consulting Unavailable Eliazar Barrios Primary Care Unavailable Perry, Benji Attending Unavailable Connell, Achintya Admitting Unavailable Christiano Rodney Consulting Unavailable Balbina, Benjie Consulting Unavailable Alexandre Faulkner Consulting Unavailable Silver, Consulting Unavailable Isacc Stover Consulting Unavailable Kameron Brooke Consulting Unavailable Christiano Salmeron P Consulting Unavailable Matheis, Edward Consulting Unavailable Flaquito, Roshan Consulting Unavailable Habtegebriel, Marcia Consulting Unavailab le Dand, Vahid Consulting Unavailable Nunez, Edmundo Consulting Unavailable Chua, Som Consulting Unavailable Lesli, Mihaela Consulting Unavailable Aljundi, Lamia Consulting Unavailable Denis, Javier Consulting Unavailable Irukulla, Nate Consulting Unavailable Arabella, Srinath Consulting Unavailable Dhesi, Colten Consulting Unavailable Champagne, Sujoy Consulting Unavailable Fernstrom, Colt Consulting Unavailable Ruben, Ismael Consulting Unavailable Elier Funez Consulting Unavailable DANIELITO SMITH, STEPH Attending Unavailab mayo BARRIOS DO, DR PEREA Primary Care Unavailable THONG COSBY, DR PEREA Primary Care Unavailable THONG COSBY, DR PEREA Attending Unavailable THONG COSBY, DR PEREA Primary Care Unavailable ARAVIND JONES, REBECCA Attending Unavailable ZHAO JONES, RAHUL Attending Unavailable THONG COSBY, DR PEREA Primary Care Unavailable THONG COSBY, DR PEREA Primary Care Unavailable DANIELITO SMITH, STEPH Attending Unavailab le Medications Current Medications Medication Drug Class(es) Dates Sig (Normalized) Sig (Original) acetaminophen 500 mg oral tablet (20 sources) Start: 03-28-2020 acetaminophen 500 mg oral tablet Dose : 500 mg = 1 tab(s), Oral, q4h, PRN as needed for fever, # 24 tab(s), 0 Refill(s) Start Date: 03/28/20 Status: Ordered Quantity: 24.0 Unit: tab(s) Repeat number: 1 [id number] 200 actuat albuterol 0.09 mg/actuat metered dose inhaler (20 sources) beta2-Adrenergic Agonist Start: 05-11-2023 ProAir HFA MDI (90 mcg/inh) inhalation aerosol See Instructions, INHALE 1 PUFF BY MOUTH NEEDED, # 1 EA, 3 Refill(s), 162.6, cm, 05/11/23 10:17:00 EDT, Height, kg, 05/11/23 10:17:00 EDT, Dosing Weight Start Date: 05/11/23 Status: Ordered Quantity: 1.0 Unit: EA Repeat number: 4 Start: 06-11-2022 ProAir HFA MDI (90 mcg/inh) inhalation aerosol See Instructions, INHALE 1 PUFF BY MOUTH NEEDED, # 1 EA, 3 Refill(s), Pharmacy: [facility]/pharmacy #[id number], 163, cm, 06/11/22 8:04:00 EDT, Height, kg, 06/11/22 8:04:00 EDT, Dosing Weight Start Date: 06/11/22 Status: Ordered Start: 04-22-2021 ProAir HFA MDI (90 mcg/inh) inhalation aerosol See Instructions, INHALE 1 PUFF BY MOUTH NEEDED, # 1 EA, 3 Refill(s), Pharmacy: [facility]/pharmacy #[id number], 160, cm, 04/22/21 8:14:00 EDT, Height, kg, 04/22/21 8:14:00 EDT, Dosing Weight Start Date: 04/22/21 Status: Ordered Start: 04-22-2021 ProAir HFA MDI (90 mcg/inh) inhalation aerosol See Instructions, INHALE 1 PUFF BY MOUTH NEEDED, # 1 EA, 3 Refill(s), Pharmacy: [facility]/pharmacy #[id number], 160, cm, 04/22/21 8:14:00 EDT, Height, kg, 04/22/21 8:14:00 EDT, Dosing Weight Start Date: 04/22/21 Status: Ordered Start: 04-21-2016 take 1 puff(s) by in halation every four hours as needed Albuterol Sulfate (Proair Hfa) 1 PUFF inhaler Active 1 PUFF INHALATION EVERY 4 HOURS NEEDED April 21, 2016 12:00am albuterol 0.833 mg/ml / ipratropium bromide 0.167 mg/ml inhalation solution (20 sources) Anticholinergic, beta2-Adrenergic Agonist Start: 03-30-2024 take 1 dose by inhalation four times daily albuterol-ipratropium 2.5 mg-0.5 mg/3 mL inhalation solution Dose = 3 mL, Inhalation, QID, # 30 EA, 4 Refill(s), Pharmacy: [facility]/pharmacy #[id number], 162.6, cm, 03/23/24 9:22:00 EDT, Height, kg, 03/23/24 9:22:00 EDT, Dosing Weight Start Date: 03/30/24 Status: Ordered Quantity: 30.0 Unit: EA Repeat number: 5 Start: 01-11-2024 take 1 dose by inhal ation four times daily albuterol-ipratropium 2.5 mg-0.5 mg/3 mL inhalation solution Dose = 3 mL, Inhalation, QID, # 30 EA, 4 Refill(s), Pharmacy: [facility]/pharmacy #[id number], 162.6, cm, 01/11/24 13:48:00 EDT, Height, kg, 01/11/24 13:48:00 EDT, Dosing Weight Start Date: 01/11/24 Status: Ordered Start: 07-22-2022 take 1 dose by inhal ation four times daily albuterol-ipratropium 2.5 mg-0.5 mg/3 mL inhalation solution Dose = 3 mL, Inhalation, QID, # 30 EA, 0 Refill(s), Pharmacy: [facility]/pharmacy #[id number], 162.6, cm, 07/21/22 8:35:00 EST, Height Start Date: 07/22/22 Status: Ordered Albuterol Sulfate (Proair Hfa) 1 PUFF inhaler (2 sources) Start: 04-21-2016 take 1 puff(s) by inhalation every four hours as needed Albuterol Sulfate (Proair Hfa) 1 PUFF inhaler Active 1 PUFF INHALATION EVERY 4 HOURS NEEDED April 21, 2016 12:00am amiodarone hydrochloride 200 mg oral tablet (2 sources) Antiarrhythmic Start: 09-18-2024 amiodarone 200 mg oral tablet Dose : 200 mg = 1 tab(s), Oral, qDay, # 90 tab(s), 1 Refill(s), Pharmacy: [facility]/pharmacy #[id number], 162.6, cm, 09/18/24 11:28:00 EST, Height, kg, 09/18/24 11:28:00 EST, Dosing Weight Start Date: 09/18/24 Status: Ordered Quantity: 90.0 Unit: tab(s) Repeat number: 2 amLODIPine 2.5 mg oral tablet (16 sources) Dihydropyridine Calcium Channel Theodore Start: 09-23-2023 amLODIPine 2.5 mg oral tablet Dose : 2.5 mg = 1 tab(s), Oral, qDay, # 90 tab(s), 1 Refill(s), Pharmacy: [facility]/pharmacy #[id number], 162, cm, 09/23/23 10:34:00 EST, Height, kg, 09/23/23 10:34:00 EST, Dosing Weight Start Date: 09/23/23 Status: Ordered Start: 06-15-2023 amLODIPine 2.5 mg oral tablet Dose : 2.5 mg = 1 tab(s), Oral, qDay, # 30 tab(s), 0 Refill(s), Pharmacy: [facility]/pharmacy #[id number], 162, cm, 06/15/23 10:06:00 EDT, Height, kg, 06/15/23 10:06:00 EDT, Dosing Weight Start Date: 06/15/23 Status: Ordered Start: 04-30-2023 take 2.5 mg by mouth once daily Amlodipine Active 2.5 MG PO DAILY April 30, 2023 12:00am Start: 06-11-2022 amLODIPine 5 m g oral tablet Dose : 5 mg = 1 tab(s), Oral, qDay, # 90 tab(s), 1 Refill(s), Pharmacy: [facility]/pharmacy #[id number], 163, cm, 06/11/22 8:04:00 EDT, Height Start Date: 06/11/22 Status: Ordered Start: 09-02-2021 End: 06-02-2022 amLODIPine 10 mg oral tablet Dose : 10 mg = 1 tab(s), Oral, qDay, # 90 tab(s), 1 Refill(s), Pharmacy: [facility]/pharmacy #[id number], 163, cm, 12/04/21 8:10:00 EDT, Height, kg, 12/04/21 8:10:00 EDT, Dosing Weight Start Date: 12/04/21 Stop Date: 06/02/22 Status: Ordered amoxicillin 875 mg / clavulanate 125 mg oral tablet (1 source) Penicillin-class Antibacterial Start: 01-11-2024 End: 01-21-2024 take 1 tablet by mouth every twelve hours amoxicillin-clavulanate 875 mg-125 mg oral tablet 1 tab(s), Oral, q12h, X 10 day(s), # 20 tab(s), 0 Refill(s), 01/21/24 2:15:00 PM EDT, Pharmacy: [facility]/pharmacy #[id number], 162.6, cm, 01/11/24 13:48:00 EDT, Height, 69.9, kg, 01/11/24 13:48:00 EDT, Dosing Weight Start Date: 01/11/24 Stop Date: 01/21/24 Status: Ordered Anoro Ellipta 62.5 mcg-25 mcg/inh inhalation powder (9 sources) Start: 09-14-2024 take 1 dose by inhalation once daily Anoro Ellipta 62.5 mcg-25 mcg/inh inhalation powder Dose = 1 puff(s), Inhalation, qDay, # 3 EA, 0 Refill(s), Pharmacy: [facility]/pharmacy #[id number], 162.6, cm, 09/14/24 9:58:00 EST, Height, kg, 09/14/24 9:58:00 EST, Dosing Weight Start Date: 09/14/24 Status: Ordered Quantity: 3.0 Unit: EA Repeat number: 1 Start: 03-23-2024 take 1 dose by inhal ation once daily Anoro Ellipta 62.5 mcg-25 mcg/inh inhalation powder Dose = 1 puff(s), Inhalation, qDay, # 3 EA, 0 Refill(s), Pharmacy: [facility]/pharmacy #[id number], 162.6, cm, 03/23/24 9:22:00 EDT, Height, kg, 03/23/24 9:22:00 EDT, Dosing Weight Start Date: 03/23/24 Status: Ordered Start: 01-11-2024 take 1 dose by inhal ation once daily Anoro Ellipta 62.5 mcg-25 mcg/inh inhalation powder Dose = 1 puff(s), Inhalation, qDay, 0 Refill(s) Start Date: 01/11/24 Status: Ordered apixaban 5 mg oral tablet (10 sources) Factor Xa Inhibitor Start: 09-14-2024 Eliquis 5 mg oral tablet Dose : 5 mg = 1 tab(s), Oral, BID, # 60 tab(s), 5 Refill(s), [id number] 162.6, cm, 09/14/24 9:58:00 EST, Height, 70.7, kg, 09/14/24 9:58:00 EST, Dosing Weight Start Date: 09/14/24 Status: Ordered Quantity: 60.0 Unit: tab(s) Repeat number: 6 Start: 06-21-2024 Eliquis 5 mg o ral tablet Dose : 5 mg = 1 tab(s), Oral, BID, # 60 tab(s), 5 Refill(s), Pharmacy: [facility]/pharmacy #[id number], 162.6, cm, 05/22/24 13:27:00 EDT, Height, 69.3, kg, 05/22/24 13:27:00 EDT, Dosing Weight Start Date: 06/21/24 Status: Ordered Start: 04-03-2024 Eliquis 5 mg o ral tablet Dose : 5 mg = 1 tab(s), Oral, BID, # 60 tab(s), 2 Refill(s), Pharmacy: [facility]/pharmacy #[id number], 162.6, cm, 03/23/24 9:22:00 EDT, Height, 68.6, kg, 03/23/24 9:22:00 EDT, Dosing Weight Start Date: 04/03/24 Status: Ordered Start: 12-29-2023 Eliquis 5 mg o ral tablet Dose : 5 mg = 1 tab(s), Oral, BID, # 60 tab(s), 2 Refill(s), [id number] 162, cm, 09/23/23 10:34:00 EST, Height, 66.3, kg, 09/23/23 10:34:00 EST, Dosing Weight Start Date: 12/29/23 Status: Ordered aspirin 81 mg delayed release oral tablet (15 sources) Platelet Aggregation Inhibitor, Nonsteroidal Anti-inflammatory Drug Start: 09-14-2024 aspirin 81 mg ora l delayed release tablet Dose : 81 mg = 1 tab(s), Oral, qDay, # 90 tab(s), 1 Refill(s), [id number] 162.6, cm, 09/14/24 9:58:00 EST, Height, kg, 09/14/24 9:58:00 EST, Dosing Weight Start Date: 09/14/24 Status: Ordered Quantity: 90.0 Unit: tab(s) Repeat number: 2 Start: 03-23-2024 aspirin 81 mg oral delayed release tablet Dose : 81 mg = 1 tab(s), Oral, qDay, # 90 tab(s), 1 Refill(s), Pharmacy: [facility]/pharmacy #[id number], 162.6, cm, 03/23/24 9:22:00 EDT, Height, kg, 03/23/24 9:22:00 EDT, Dosing Weight Start Date: 03/23/24 Status: Ordered Start: 09-23-2023 aspirin 81 mg oral delayed release tablet Dose : 81 mg = 1 tab(s), Oral, qDay, # 90 tab(s), 1 Refill(s), Pharmacy: [facility]/pharmacy #[id number], 162, cm, 09/23/23 10:34:00 EST, Height, kg, 09/23/23 10:34:00 EST, Dosing Weight Start Date: 09/23/23 Status: Ordered Start: 06-15-2023 aspirin 81 mg oral delayed release tablet Dose : 81 mg = 1 tab(s), Oral, qDay, # 90 tab(s), 1 Refill(s), [id number] 162, cm, 06/15/23 10:06:00 EDT, Height, kg, 06/15/23 10:06:00 EDT, Dosing Weight Start Date: 06/15/23 Status: Ordered Start: 04-30-2023 take 81 mg by mouth once daily Aspirin Active 81 MG PO DAILY@0800 30 April 30, 2023 12:00am atorvastatin 20 mg oral tablet (15 sources) HMG-CoA Reductase Inhibitor Start: 09-14-2024 atorvastatin 20 mg oral tablet Dose : 20 mg = 1 tab(s), Oral, qDay, # 90 tab(s), 1 Refill(s), [id number] 162.6, cm, 09/14/24 9:58:00 EST, Height, kg, 09/14/24 9:58:00 EST, Dosing Weight Start Date: 09/14/24 Status: Ordered Quantity: 90.0 Unit: tab(s) Repeat number: 2 Start: 03-23-2024 atorvastatin 2 0 mg oral tablet Dose : 20 mg = 1 tab(s), Oral, qDay, # 90 tab(s), 1 Refill(s), [id number] 162.6, cm, 03/23/24 9:22:00 EDT, Height, kg, 03/23/24 9:22:00 EDT, Dosing Weight Start Date: 03/23/24 Status: Ordered Start: 09-23-2023 atorvastatin 2 0 mg oral tablet Dose : 20 mg = 1 tab(s), Oral, qDay, # 90 tab(s), 1 Refill(s), Pharmacy: [facility]/pharmacy #[id number], 162, cm, 09/23/23 10:34:00 EST, Height, kg, 09/23/23 10:34:00 EST, Dosing Weight Start Date: 09/23/23 Status: Ordered Start: 06-15-2023 atorvastatin 2 0 mg oral tablet Dose : 20 mg = 1 tab(s), Oral, qDay, # 90 tab(s), 1 Refill(s), [id number] 162, cm, 06/15/23 10:06:00 EDT, Height, kg, 06/15/23 10:06:00 EDT, Dosing Weight Start Date: 06/15/23 Status: Ordered Start: 04-30-2023 take 20 mg by mouth at bedtime Atorvastatin Active 20 MG PO AT BEDTIME April 30, 2023 12:00am bumetanide 1 mg oral tablet (2 sources) Loop Diuretic Start: 03-15-2024 bumetanide 1 mg oral tablet Dose : 1 mg = 1 tab(s), Oral, Daily, # 30 tab(s), 3 Refill(s), [id number] 162.6, cm, 03/15/24 13:10:00 EDT, Height, kg, 03/15/24 13:10:00 EDT, Dosing Weight Start Date: 03/15/24 Status: Ordered cefdinir 300 mg oral capsule (1 source) Cephalosporin Antibacterial Start: 07-23-2022 End: 07-24-2022 cefdinir 300 mg oral capsule Dose : 300 mg = 1 cap(s), Oral, q12h, X 1 day(s), # 2 cap(s), 0 Refill(s), 07/24/22 8:00:00 EST, [id number] 162.6, cm, 07/21/22 8:35:00 EST, Height, 56.8 Start Date: 07/23/22 Stop Date: 07/24/22 Status: Ordered cholecalciferol 0.05 mg oral capsule (1 source) Vitamin D Start: 04-29-2023 take 50 ug by mouth once daily Cholecalciferol (Vitamin D3) Active 50 MCG PO DAILY April 29, 2023 12:00am ferrous sulfate 325 mg oral tablet (20 sources) Start: 06-06-2024 IRON (ferrous sulfate 325 mg) 65 mg oral tablet Dose : 325 mg = 1 tab(s), Oral, qDay, Take with food., # 60 tab(s), 3 Refill(s), Pharmacy: [facility]/pharmacy #[id number], 162.6, cm, 05/22/24 13:27:00 EDT, Height, kg, 05/22/24 13:27:00 EDT, Dosing Weight Start Date: 06/06/24 Status: Ordered Quantity: 60.0 Unit: tab(s) Repeat number: 4 Start: 03-30-2024 IRON (ferrous sulfate 325 mg) 65 mg oral tablet Dose : 325 mg = 1 tab(s), Oral, qDay, Take with food., # 60 tab(s), 3 Refill(s), Pharmacy: [facility]/pharmacy #[id number], 162.6, cm, 03/23/24 9:22:00 EDT, Height, kg, 03/23/24 9:22:00 EDT, Dosing Weight Start Date: 03/30/24 Status: Ordered Start: 05-11-2023 IRON (ferrous sulfate 325 mg) 65 mg oral tablet Dose : 325 mg = 1 tab(s), Oral, qDay, Take with food., # 60 tab(s), 3 Refill(s), Pharmacy: [facility]/pharmacy #[id number], 162.6, cm, 05/11/23 10:17:00 EDT, Height, kg, 05/11/23 10:17:00 EDT, Dosing Weight Start Date: 05/11/23 Status: Ordered Start: 01-18-2023 take 325 mg by mouth once daily Ferrous Sulfate Active 325 MG PO DAILY January 18, 2023 12:00am Start: 07-28-2022 IRON (ferrous sulfate 325 mg) 65 mg oral tablet Dose : 325 mg = 1 tab(s), Oral, Every other day, Take with food., # 60 tab(s), 3 Refill(s), Pharmacy: [facility]/pharmacy #[id number], 162.6, cm, 07/21/22 8:35:00 EST, Height, kg, 07/28/22 13:12:00 EST, Dosing Weight Start Date: 07/28/22 Status: Ordered Start: 07-22-2022 IRON (ferrous sulfate 325 mg) 65 mg oral tablet Dose : 325 mg = 1 tab(s), Oral, Every other day, Take with food., # 60 tab(s), 3 Refill(s), Pharmacy: [facility]/pharmacy #[id number], 162.6, cm, 07/21/22 8:35:00 EST, Height Start Date: 07/22/22 Status: Ordered furosemide 40 mg oral tablet (18 sources) Loop Diuretic Start: 09-23-2023 Lasix 40 mg or al tablet Dose : 40 mg = 1 tab(s), Oral, qDay, # 90 tab(s), 1 Refill(s), Pharmacy: [facility]/pharmacy #[id number], 162, cm, 09/23/23 10:34:00 EST, Height, kg, 09/23/23 10:34:00 EST, Dosing Weight Start Date: 09/23/23 Status: Ordered Start: 06-15-2023 Lasix 40 mg or al tablet Dose : 40 mg = 1 tab(s), Oral, qDay, # 90 tab(s), 1 Refill(s), [id number] 162, cm, 06/15/23 10:06:00 EDT, Height, kg, 06/15/23 10:06:00 EDT, Dosing Weight Start Date: 06/15/23 Status: Ordered Start: 04-30-2023 take 20 mg by mouth twice daily Furosemide Active 20 MG PO TWICE A DAY 60 April 30, 2023 10:46am Start: 01-18-2023 End: 04-30-2023 take 20 mg by mouth once daily Furosemide Discontinued 20 MG PO DAILY January 18, 2023 12:00am April 30, 2023 10:46am Start: 07-28-2022 Lasix 20 mg or al tablet Dose : 20 mg = 1 tab(s), Oral, qDay, # 90 tab(s), 1 Refill(s), Pharmacy: [facility]/pharmacy #[id number], 162.6, cm, 07/21/22 8:35:00 EST, Height Start Date: 07/28/22 Status: Ordered Start: 07-22-2022 Lasix 40 mg or al tablet Dose : 40 mg = 1 tab(s), Oral, qDay, # 30 tab(s), 0 Refill(s), Pharmacy: [facility]/pharmacy #[id number], 162.6, cm, 07/21/22 8:35:00 EST, Height Start Date: 07/22/22 Status: Ordered 12 hr guaiFENesin 600 mg extended release oral tablet (3 sources) Start: 01-05-2024 End: 01-12-2024 Mucinex 600 mg oral tablet, extended release Dose : 1,200 mg = 2 tab(s), Oral, q12h, X 7 day(s), # 28 tab(s), 0 Refill(s), 01/12/24 9:25:00 AM EDT, Pharmacy: [facility]/pharmacy #[id number], 162.6, cm, 01/03/24 15:18:00 EDT, Height, kg, 01/03/24 15:18:00 EDT, Dosing Weight Start Date: 01/05/24 Stop Date: 01/12/24 Status: Ordered Start: 07-22-2022 End: 07-27-2022 Mucinex 600 mg oral tablet, extended release Dose : 1,200 mg = 2 tab(s), Oral, BID, X 5 day(s), # 20 tab(s), 0 Refill(s), 07/27/22 11:33:00 EST, Pharmacy: [facility]/pharmacy #[id number], 162.6, cm, 07/21/22 8:35:00 EST, Height Start Date: 07/22/22 Stop Date: 07/27/22 Status: Ordered hydroCHLOROthiazide 12.5 mg oral capsule (2 sources) Thiazide Diuretic Start: 04-17-2022 hydroCHLOROthiazide 12.5 mg oral capsule Dose : 12.5 mg = 1 cap(s), Oral, qDay, # 30 cap(s), 0 Refill(s), Pharmacy: [facility]/pharmacy #[id number], 163, cm, 03/26/22 14:31:00 EDT, Height Start Date: 04/17/22 Status: Ordered Incruse Ellipta 62.5 mcg/inh inhalation powder (18 sources) Start: 05-11-2023 End: 05-05-2024 take 1 dose by inhalation once daily Incruse Ellipta 62.5 mcg/inh inhalation powder Dose = 1 puff(s), Inhalation, qDay, # 3 EA, 3 Refill(s), Pharmacy: [facility]/pharmacy #[id number], 162.6, cm, 05/11/23 10:17:00 EDT, Height, kg, 05/11/23 10:17:00 EDT, Dosing Weight Start Date: 05/11/23 Stop Date: 05/05/24 Status: Ordered Start: 06-11-2022 End: 06-06-2023 take 1 dose by inhalation once daily Incruse Ellipta 62.5 mcg/inh inhalation powder Dose = 1 puff(s), Inhalation, qDay, # 3 EA, 3 Refill(s), Pharmacy: [facility]/pharmacy #[id number], 163, cm, 06/11/22 8:04:00 EDT, Height, kg, 06/11/22 8:04:00 EDT, Dosing Weight Start Date: 06/11/22 Stop Date: 06/06/23 Status: Ordered Start: 09-02-2021 End: 08-28-2022 take 1 dose by inhalation once daily Incruse Ellipta 62.5 mcg/inh inhalation powder Dose = 1 puff(s), Inhalation, qDay, # 3 EA, 3 Refill(s), Pharmacy: [facility]/pharmacy #[id number], 163, cm, 09/02/21 9:11:00 EST, Height, kg, 09/02/21 9:11:00 EST, Dosing Weight Start Date: 09/02/21 Stop Date: 08/28/22 Status: Ordered 24 hr metoprolol succinate 50 mg extended release oral tablet (20 sources) beta-Adrenergic Theodore Start: 04-24-2024 metopr olol succinate 50 mg oral TABLET extended release Dose : 50 mg = 1 tab(s), Oral, BID, # 180 tab(s), 0 Refill(s), Pharmacy: [facility]/pharmacy #[id number], 162.6, cm, 04/17/24 12:58:00 EDT, Height, kg, 04/17/24 12:58:00 EDT, Dosing Weight Start Date: 04/24/24 Status: Ordered Quantity: 180.0 Unit: tab(s) Repeat number: 1 Start: 01-26-2024 metoprolol suc cinate 50 mg oral TABLET extended release Dose : 50 mg = 1 tab(s), Oral, BID, # 180 tab(s), 3 Refill(s), Pharmacy: [facility]/pharmacy #[id number], 162.6, cm, 01/11/24 13:48:00 EDT, Height, kg, 01/11/24 13:48:00 EDT, Dosing Weight Start Date: 01/26/24 Status: Ordered Start: 01-05-2024 End: 01-05-2024 metoprolol succinate 50 mg o ral TABLET extended release Start: 01/05/24 8:00:00 AM EDT, Dose = 50 mg, = 1 tab(s), Oral, 0, 01/03/24 15:38:00 EDT Start Date: 01/05/24 Stop Date: 01/05/24 Status: Completed Start: 09-27-2023 metoprolol suc cinate 50 mg oral TABLET extended release Dose : 50 mg = 1 tab(s), Oral, BID, # 180 tab(s), 1 Refill(s), Pharmacy: [facility]/pharmacy #[id number], 162, cm, 09/23/23 10:34:00 EST, Height, kg, 09/23/23 10:34:00 EST, Dosing Weight Start Date: 09/27/23 Status: Ordered Start: 01-19-2023 metoprolol suc cinate 50 mg oral TABLET extended release Dose : 50 mg = 1 tab(s), Oral, BID, # 180 tab(s), 1 Refill(s), Pharmacy: [facility]/pharmacy #[id number], 162.6, cm, 01/19/23 13:01:00 EDT, Height, kg, 01/19/23 13:01:00 EDT, Dosing Weight Start Date: 01/19/23 Status: Ordered Start: 01-18-2023 End: 04-30-2023 take 50 mg by mouth once daily Metoprolol Succinate Di scontinued 50 MG PO DAILY January 18, 2023 12:00am April 30, 2023 10:43am Start: 01-18-2023 Metoprolol Suc cinate Active MG PO January 18, 2023 12:00am Start: 12-10-2022 metoprolol suc cinate 50 mg oral TABLET extended release Dose : 50 mg = 1 tab(s), Oral, qDay, # 90 tab(s), 1 Refill(s), Pharmacy: [facility]/pharmacy #[id number], 162.6, cm, 12/10/22 7:57:00 EDT, Height, kg, 12/10/22 7:57:00 EDT, Dosing Weight Start Date: 12/10/22 Status: Ordered Start: 10-12-2022 metoprolol suc cinate 50 mg oral TABLET extended release Dose : 50 mg = 1 tab(s), Oral, qDay, # 30 tab(s), 4 Refill(s), [id number] 162.6, cm, 10/12/22 9:18:00 EST, Height Start Date: 10/12/22 Status: Ordered Start: 08-13-2022 metoprolol suc cinate 25 mg oral TABLET extended release Dose : 25 mg = 1 tab(s), Oral, qDay, Do not crush or chew (controlled release), # 30 tab(s), 5 Refill(s), Pharmacy: [facility]/pharmacy #[id number], 162.6, cm, 08/13/22 14:09:00 EST, Height Start Date: 08/13/22 Status: Ordered [facility] Medication (14 sources) Start: 05-11-2023 [facility] Medicatio n 0 Refill(s), 62.9 Start Date: 05/11/23 Status: Ordered Repeat number: 1 Start: 05-11-2023 [facility] Medicatio n 0 Refill(s), 62.9 Start Date: 05/11/23 Status: Ordered mupirocin 0.02 mg/mg topical ointment (7 sources) RNA Synthetase Inhibitor Antibacterial Start: 03-23-2024 mupirocin 2% topical ointment Apply 1 vicenta, Topical, TID, # 15 gram(s), 0 Refill(s), Pharmacy: [facility]/pharmacy #[id number], Ointment, 162.6, cm, 03/23/24 9:22:00 EDT, Height, 68.6, kg, 03/23/24 9:22:00 EDT, Dosing Weight Start Date: 03/23/24 Status: Ordered Quantity: 15.0 Unit: g Repeat number: 1 24 hr nicotine 0.875 mg/hr transdermal system (4 sources) Cholinergic Nicotinic Agonist Start: 07-22-2022 End: 09-08-2022 apply 1 dose transdermal route once daily nicotine 21mg / 24hrs transdermal patch Dose = 1 patch(es), Transdermal, qDay, X 21 day(s), # 21 patch(es), 1 Refill(s), Pharmacy: [facility]/pharmacy #[id number], 162.6, cm, 07/21/22 8:35:00 EST, Height, kg, 07/28/22 13:12:00 EST, Dosing Weight Start Date: 07/28/22 Stop Date: 09/08/22 Status: Ordered sacubitril 49 mg / valsartan 51 mg oral tablet (20 sources) Angiotensin 2 Receptor Theodore Start: 09-18-2024 take 1 tablet by mouth twice daily Entresto 49 mg-51 mg oral tablet Dose = 1 tab(s), Oral, BID, # 180 tab(s), 1 Refill(s), Pharmacy: [facility]/pharmacy #[id number], 162.6, cm, 09/18/24 11:28:00 EST, Height, kg, 09/18/24 11:28:00 EST, Dosing Weight Start Date: 09/18/24 Status: Ordered Quantity: 180.0 Unit: tab(s) Repeat number: 2 Start: 07-14-2024 take 1 tablet by luis enrique th twice daily Entresto 49 mg-51 mg oral tablet Dose = 1 tab(s), Oral, BID, # 180 tab(s), 1 Refill(s), Pharmacy: [facility]/pharmacy #[id number], 162.6, cm, 05/22/24 13:27:00 EDT, Height, kg, 05/22/24 13:27:00 EDT, Dosing Weight Start Date: 07/14/24 Status: Ordered Start: 04-17-2024 take 1 tablet by luis enrique th twice daily Entresto 49 mg-51 mg oral tablet Dose = 1 tab(s), Oral, BID, # 180 tab(s), 0 Refill(s), Pharmacy: [facility]/pharmacy #[id number], 162.6, cm, 04/17/24 12:58:00 EDT, Height, kg, 04/17/24 12:58:00 EDT, Dosing Weight Start Date: 04/17/24 Status: Ordered Start: 01-11-2024 take 1 tablet by luis enrique th twice daily Entresto 24 mg-26 mg oral tablet Dose = 1 tab(s), Oral, BID, # 180 tab(s), 1 Refill(s), Pharmacy: [facility]/pharmacy #[id number], 162.6, cm, 01/11/24 13:48:00 EDT, Height, kg, 01/11/24 13:48:00 EDT, Dosing Weight Start Date: 01/11/24 Status: Ordered Start: 08-06-2023 take 1 tablet by luis enrique th twice daily Entresto 24 mg-26 mg oral tablet Dose = 1 tab(s), Oral, BID, # 180 tab(s), 1 Refill(s), Pharmacy: [facility]/pharmacy #[id number], 162, cm, 06/17/23 13:43:00 EDT, Height, kg, 06/17/23 13:43:00 EDT, Dosing Weight Start Date: 08/06/23 Status: Ordered Start: 10-20-2022 End: 04-18-2023 take 1 tablet by mouth twice daily Entresto 24 mg-26 mg oral tablet TAKE 1 TABLET BY MOUTH TWICE A DAY Start Date: 02/24/23 Status: Ordered Start: 09-02-2021 End: 03-17-2022 take 1 tablet by mouth twice daily Entresto 24 mg-26 mg oral tablet Dose = 1 tab(s), Oral, BID, # 180 tab(s), 1 Refill(s), [id number] 163, cm, 09/02/21 9:11:00 EST, Height, kg, 09/02/21 9:11:00 EST, Dosing Weight Start Date: 09/17/21 Stop Date: 03/16/22 Status: Ordered torsemide 20 mg oral tablet (5 sources) Loop Diuretic Start: 09-14-2024 torsemide 20 m g oral tablet Dose : 20 mg = 1 tab(s), Oral, Daily, # 30 tab(s), 5 Refill(s), Pharmacy: [facility]/pharmacy #[id number], 162.6, cm, 09/14/24 9:58:00 EST, Height, kg, 09/14/24 9:58:00 EST, Dosing Weight Start Date: 09/14/24 Status: Ordered Quantity: 30.0 Unit: tab(s) Repeat number: 6 Start: 05-18-2024 torsemide 20 m g oral tablet Dose : 20 mg = 1 tab(s), Oral, Daily, # 30 tab(s), 5 Refill(s), Pharmacy: [facility]/pharmacy #[id number], 162.6, cm, 04/17/24 12:58:00 EDT, Height, kg, 04/17/24 12:58:00 EDT, Dosing Weight Start Date: 05/18/24 Status: Ordered Start: 04-17-2024 torsemide 20 m g oral tablet Dose : 20 mg = 1 tab(s), Oral, Daily, # 30 tab(s), 0 Refill(s), Pharmacy: [facility]/pharmacy #[id number], 162.6, cm, 04/17/24 12:58:00 EDT, Height, kg, 04/17/24 12:58:00 EDT, Dosing Weight Start Date: 04/17/24 Status: Ordered Vitamin D3 1250 mcg (50,000 intl units) oral capsule (1 source) Start: 09-12-2021 Vitamin D3 125 0 mcg (50,000 intl units) oral capsule Dose : 1,250 mcg = 1 cap(s), Oral, qWeek, # 12 cap(s), 0 Refill(s), Pharmacy: [facility]/pharmacy #[id number], 163, cm, 09/02/21 9:11:00 EST, Height, kg, 09/02/21 9:11:00 EST, Dosing Weight Start Date: 09/12/21 Status: Ordered Vitamin D3 50 mcg (2000 intl units) oral capsule (20 sources) Start: 03-23-2024 Vitamin D3 50 mcg (2000 intl units) oral capsule Dose : 2,000 unit(s) = 1 cap(s), Oral, Daily, # 90 cap(s), 3 Refill(s), Pharmacy: [facility]/pharmacy #[id number], 162.6, cm, 03/23/24 9:22:00 EDT, Height, kg, 03/23/24 9:22:00 EDT, Dosing Weight Start Date: 03/23/24 Status: Ordered Quantity: 90.0 Unit: cap(s) Repeat number: 4 Start: 03-23-2024 Vitamin D3 50 mcg (2000 intl units) oral capsule Dose : 2,000 unit(s) = 1 cap(s), Oral, Daily, # 90 cap(s), 3 Refill(s), Pharmacy: [facility]/pharmacy #[id number], 162.6, cm, 03/23/24 9:22:00 EDT, Height, kg, 03/23/24 9:22:00 EDT, Dosing Weight Start Date: 03/23/24 Status: Ordered Start: 01-21-2023 Vitamin D3 50 mcg (2000 intl units) oral capsule Dose : 2,000 unit(s) = 1 cap(s), Oral, Daily, # 90 cap(s), 3 Refill(s), Pharmacy: [facility]/pharmacy #[id number], 162.6, cm, 01/19/23 13:01:00 EDT, Height, kg, 01/21/23 13:08:00 EDT, Dosing Weight Start Date: 01/21/23 Status: Ordered Start: 12-04-2021 Vitamin D3 50 mcg (2000 intl units) oral capsule Dose : 2,000 unit(s) = 1 cap(s), Oral, Daily, # 90 cap(s), 3 Refill(s), [id number] 163, cm, 12/04/21 8:10:00 EDT, Height Start Date: 12/04/21 Status: Ordered warfarin sodium 5 mg oral tablet (5 sources) Vitamin K Antagonist Start: 08-19-2023 warfarin 5 mg oral tablet See Instructions, Take 7.5mg on Wednesday, Wednesday, Wednesday, Wednesday and 5mg all other days or as instructed by [facility]., # 40 tab(s), 3 Refill(s), Pharmacy: [facility]/pharmacy #[id number], 162, cm, 06/17/23 13:43:00 EDT, Height, kg, 06/17/23 13:43:00 EDT, Dosing Weight Start Date: 08/19/23 Status: Ordered Start: 04-29-2023 take 5 mg by mouth once daily Warfarin Active 5 MG PO DAILY April 29, 2023 12:00am Start: 04-12-2023 warfarin 5 mg oral tablet See Instructions, Take 7.5mg on Wednesday, Wednesday, Wednesday, Wednesday and 5mg all other days or as instructed by [facility]., # 40 tab(s), 3 Refill(s), Pharmacy: [facility]/pharmacy #[id number], 162.6, cm, 02/24/23 9:40:00 EDT, Height, kg, 02/24/23 9:40:00 EDT, Dosing Weight Start Date: 04/12/23 Status: Ordered 100 ml zoledronic acid 0.05 mg/ml injection (7 sources) Bisphosphonate Start: 03-15-2024 Reclast 5 mg/1 00 mL intravenous solution Dose : 5 mg =, IV Piggyback, qYear, 0 Refill(s) Start Date: 03/15/24 Status: Ordered Repeat number: 1 Completed/Discontinued Medications Medication Drug Class(es) Dates Sig (Normalized) Sig (Original) cyclobenzaprine hydrochloride 10 mg oral tablet (3 sources) Muscle Relaxant Start: 05-06-2016 End: 04-29-2023 take 10 mg by mouth three times daily as needed Cyclobenzaprine Discontinued 10 MG PO 3 TIMES DAILY NEEDED 60 May 06, 2016 12:00am April 29, 2023 12:46am 1 ml denosumab 60 mg/ml prefilled syringe (17 sources) RANK Ligand Inhibitor Start: 06-03-2023 Prolia 60 mg/mL subcutaneous solution Dose : 60 mg = 1 mL, Subcutaneous, q6mo, # 1 mL, 0 Refill(s), Pharmacy: [facility], 162.6, cm, 01/03/24 15:18:00 EDT, Height, kg, 01/03/24 15:18:00 EDT, Dosing Weight Start Date: 01/06/24 Status: Ordered Start: 05-28-2022 Prolia 60 mg/m L subcutaneous solution Dose : 60 mg = 1 mL, Subcutaneous, q6mo, # 1 mL, 0 Refill(s) Start Date: 05/28/22 Status: Ordered Start: 10-30-2021 Prolia 60 mg/m L subcutaneous solution Dose : 60 mg = 1 mL, Subcutaneous, q6mo, # 1 mL, 0 Refill(s) Start Date: 10/30/21 Status: Ordered predniSONE 10 mg oral tablet (5 sources) Start: 01-05-2024 End: 01-19-2024 take 1 tablet by mouth once daily prednisone 10mg tab (TAPER) 71-23-24-30- 20-10-5mg x 2days/dose, Oral, qDay, [id number],[id number],[id number],7J4tdgs, X2 days., # 43 tab(s), 0 Refill(s), [id number] 162.6, cm, 01/03/24 15:18:00 EDT, Height, kg, 01/03/24 15:18:00 EDT, Dosing Weight Start Date: 01/05/24 Stop Date: 01/19/24 Status: Ordered Start: 07-22-2022 End: 07-31-2022 take 1 tablet by mouth once daily prednisone 20mg tab (TAPER) Taper 60-40-20 mg x 3 days each dose, Oral, Daily, X 9 day(s), # 18 tab(s), 0 Refill(s), 07/31/22 11:34:00 EST, [id number] 162.6, cm, 07/21/22 8:35:00 EST, Height Start Date: 07/22/22 Stop Date: 07/31/22 Status: Ordered Prolia 60 mg/mL subcutaneous solution (1 source) Start: 10-30-2021 Prolia 60 mg/m L subcutaneous solution Dose : 60 mg = 1 mL, Subcutaneous, q6mo, # 1 mL, 0 Refill(s) Start Date: 10/30/21 Status: Ordered Problems Active Problems Problem Classification Problem Date Documented Da te Episodic/Chronic Acquired foot deformities (20 sources) Foot-drop 06-07-2014 Episodic Comment on above: left foot Acute bronchitis (3 sources) Acute bronchitis; Translations: [Acute bronchitis, unspecified] 03-11-2022 Episodic Acute myocardial infarction (12 sources) Myocardial infarction 05-11-2023 Chronic Allergic reactions (20 sources) Eczema 06-07-2014 Episodic Cardiac dysrhythmias (20 sources) Atrial fibrillation; Translations: [Unspecified atrial fibrillation] Onset: 01-03-2024 01-18-2023 Chronic Chronic obstructive pulmonary disease and bronchiectasis (20 sources) Pulmonary emphysema; Translations: [Acute exacerbation of chronic obstructive airways disease] Onset: 07-19-2022 03-28-2020 Chronic Conditions associated with dizziness or vertigo (20 sources) Vertigo 06-07-2014 Episodic Congestive heart failure; nonhypertensive (20 sources) Diastolic heart failure; Translations: [Unspecified diastolic (congestive) heart failure] Onset: 07-19-2022 Chronic Coronary atherosclerosis and other heart disease (4 sources) Angina pectoris; Translations: [Angina pectoris, unspecified] Onset: 09-08-2024 04-29-2023 Chronic Diabetes mellitus without complication (19 sources) Hyperglycemia; Translations: [Hyperglycemia, unspecified] 12-10-2022 Episodic Essential hypertension (20 sources) Hypertensive disorder; Translations: [Essential hypertension] Onset: 01-03-2024 04-28-2021 Chronic Fluid and electrolyte disorders (2 sources) Hypo-osmolality and or hyponatremia; Translations: [Hypo-osmolality and hyponatremia] Episodic Hypertension with complications and secondary hypertension (1 source) Hypertensive heart failure; Translations: [Hypertensive heart disease with heart failure] Chronic Nephritis; nephrosis; renal sclerosis (20 sources) Atrophy of kidney; 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 kidney (terminal)] 06-11-2022 Chronic Nonspecific chest pain (4 sources) Chest pain; Translations: [Chest pain, unspecified] 04-28-2023 Episodic Nutritional deficiencies (20 sources) Vitamin D deficiency 12-04-2021 Chronic Osteoarthritis (20 sources) Arthritis 06-07-2014 Chronic Osteoporosis (20 sources) Osteoporosis 09-02-2021 Chronic Other acquired deformities (20 sources) Acquired scoliosis 06-07-2014 Chronic Other aftercare (1 source) Long-term current use of drug therapy; Translations: [Other jail (current) drug therapy] Episodic Other aftercare (1 source) Drug monitoring done; Translations: [Encounter for therapeutic drug level monitoring] Episodic Other connective tissue disease (20 sources) Falls 06-07-2014 Episodic Other gastrointestinal disorders (20 sources) Incontinence of feces 06-07-2014 Episodic Comment on above: x 2 since spine issu e Other hematologic conditions (2 sources) Secondary polycythemia; Translations: [Secondary polycythemia] Onset: 07-19-2022 Episodic Other hematologic conditions (20 sources) Erythrocytosis; Translations: [Secondary polycythemia] 06-11-2022 Episodic Other hematologic conditions (2 sources) High troponin I level; Translations: [Other specified abnormalities of plasma proteins] 04-28-2023 Episodic Other hematologic conditions (2 sources) Other specified abnormalities of plasma proteins; Translations: [Other abnormal blood chemistry] 04-28-2023 Episodic Other hematologic conditions (2 sources) Secondary polycythemia; Translations: [Polycythemia, secondary] 04-28-2023 Episodic Other lower respiratory disease (20 sources) Nodule of lung 12-04-2021 Episodic Other lower respiratory disease (1 source) H/O: respiratory disease; Translations: [Personal history of pneumonia (recurrent)] Episodic Other lower respiratory disease (3 sources) History of chronic obstructive airway disease; Translations: [Personal history of other diseases of the respiratory system] 01-18-2023 Episodic Other lower respiratory disease (1 source) History of chronic lung disease; Translations: [Personal history of other diseases of the respiratory system] 03-11-2022 Episodic Other lower respiratory disease (1 source) Personal history of other diseases of the respiratory system; Translations: [Personal history of other diseases of the respiratory system] Onset: 09-08-2024 Episodic Other nervous system disorders (2 sources) Metabolic encephalopathy; Translations: [Metabolic encephalopathy] Onset: 07-19-2022 Chronic Other nervous system disorders (20 sources) Numbness of limbs 06-07-2014 Episodic Other nervous system disorders (20 sources) Unsteady gait 06-12-2014 Episodic Other non-epithelial cancer of skin (20 sources) Squamous cell carcinoma of skin; Translations: [Basal cell carcinoma of skin] 06-07-2014 Episodic Other nutritional; endocrine; and metabolic disorders (14 sources) History of iron deficiency 01-06-2023 Episodic Other skin disorders (20 sources) Multiple actinic keratoses 12-04-2021 Episodic Other upper respiratory disease (20 sources) Seasonal allergy 06-07-2014 Chronic Pneumonia (except that caused by tuberculosis or sexually transmitted disease) (2 sources) Pneumonia; Translations: [Pneumonia, unspecified organism] Onset: 07-19-2022 Episodic Residual codes; unclassified (1 source) Tobacco user; Translations: [Tobacco use] Onset: 07-19-2022 Episodic Residual codes; unclassified (1 source) Edema; Translations: [Edema, unspecified] Episodic Respiratory failure; insufficiency; arrest (adult) (3 sources) Chronic respiratory failure; Translations: [Chronic respiratory failure, unspecified whether with hypoxia or hypercapnia] Onset: 01-03-2024 Chronic Respiratory failure; insufficiency; arrest (adult) (3 sources) Respiratory failure; Translations: [Respiratory failure, unspecified with hypercapnia] Onset: 07-19-2022 Episodic Spondylosis; intervertebral disc disorders; other back problems (3 sources) Intervertebral disc prolapse 06-07-2014 Chronic Spondylosis; intervertebral disc disorders; other back problems (20 sources) Spinal stenosis in cervical region 06-12-2014 Episodic Substance-related disorders (3 sources) Nicotine dependence; Translations: [Nicotine dependence, cigarettes, uncomplicated] Chronic Viral infection (20 sources) Herpes zoster 06-07-2014 Episodic Comment on above: Denies shingles Past or Other Problems Problem Classification Problem Date Documented Da te Episodic/Chronic Other screening for suspected conditions (not mental disorders or infectious disease) (6 sources) Hormone level - finding; Translations: [Other specified abnormal findings of blood chemistry] Onset: 09-25-2024 04-28-2023 Episodic Results Test Name Value Interpretation Reference Range Facility .GFRon 01-26-2025 Estimated Glomerular Filtration Rate 70 ml/min/1.73sqm Normal [facility] Comment on above: Result Comment: Stages of Chronic Kidney Disease (CKD) Stage Description eGFR(ml/min/1.73 sq.m.) CKD 1 Normal kidney function or >=90 normal kindney function with possible kidney damage (ex. Proteinuria) CKD 2 Kidney damage with mild loss 60-89 of kidney function CKD 3a Mild to moderate loss of kidney 45-59 function CKD 3b Moderate to severe loss of 30-44 of kindey function CKD 4 Severe loss of kidney function 15-29 CKD 5 Kidney failure <15 Note: (go live 2024) the eGFR calculation was updated to the 2020 CKD-EPI creatinine equation without a race factor to calculate the eGFR results. Performed By: #### C BC, ADIFF, RFP, ANEU, IBC, GFR, FE, URIC, FERR #### [facility] [address] [place] [id number] #### PTH #### [facility] [address] [place] [id number] BMPon 01-26-2025 BUN/Creatinine Ratio 15 ratio Normal 7-27 [facility] Comment on above: Performed By: #### C BC, ADIFF, RFP, ANEU, IBC, GFR, FE, URIC, FERR #### [place] [address] #### PTH #### [place] [address] Calcium [Mass/Vol] 9.0 mg/dL Normal 8.4-10.2 [facility] Comment on above: Performed By: #### C BC, ADIFF, RFP, ANEU, IBC, GFR, FE, URIC, FERR #### [place] [address] #### PTH #### [place] [address] Chloride [Moles/Vol] 100 mmol/L Normal 98-107 [facility] Comment on above: Performed By: #### C BC, ADIFF, RFP, ANEU, IBC, GFR, FE, URIC, FERR #### [place] [address] #### PTH #### [place] [address] CO2 [Moles/Vol] 39 mmol/L High 23-31 [facility] Comment on above: Performed By: #### C BC, ADIFF, RFP, ANEU, IBC, GFR, FE, URIC, FERR #### [place] [address] #### PTH #### [place] [address] Creatinine [Mass/Vol] 0.88 mg/dL Normal 0.51-0.95 [facility] Comment on above: Performed By: #### C BC, ADIFF, RFP, ANEU, IBC, GFR, FE, URIC, FERR #### [place] [address] #### PTH #### [place] [address] Electrolyte Balance 0.0 mEq/L Low 4.0-15.0 [facility] Comment on above: Performed By: #### C BC, ADIFF, RFP, ANEU, IBC, GFR, FE, URIC, FERR #### [address] [address] #### PTH #### [address] [address] Glucose [Mass/Vol] 85 mg/dL Normal 83-110 [facility] Comment on above: Performed By: #### C BC, ADIFF, RFP, ANEU, IBC, GFR, FE, URIC, FERR #### [address] [address] #### PTH #### [place] [address] Potassium [Moles/Vol] 4.7 mmol/L Normal 3.5-5.1 [facility] Comment on above: Performed By: #### C BC, ADIFF, RFP, ANEU, IBC, GFR, FE, URIC, FERR #### [place] [address] #### PTH #### [place] [address] Sodium [Moles/Vol] 139 mmol/L Normal 136-145 [facility] Comment on above: Performed By: #### C BC, ADIFF, RFP, ANEU, IBC, GFR, FE, URIC, FERR #### [address] [address] #### PTH #### [place] [address] Urea nitrogen [Mass/Vol] 13 mg/dL Normal 7-18 [facility] Comment on above: Performed By: #### C BC, ADIFF, RFP, ANEU, IBC, GFR, FE, URIC, FERR #### [address] [address] #### PTH #### [address] [address] .Auto Diffon 10-18-2024 Basophil, Absolute 0.1 10 3/mcL Normal 0.0-0.2 [facility] Comment on above: Performed By: #### C BC, ADIFF, RFP, ANEU, IBC, GFR, FE, URIC, FERR #### [address] [address] #### PTH #### [address] [address] Basophils/100 WBC (Bld) 1.1 % Normal 0.0-2.5 [facility] Comment on above: Performed By: #### C BC, ADIFF, RFP, ANEU, IBC, GFR, FE, URIC, FERR #### [place] [address] #### PTH #### [address] [address] Eosinophil, Absolute 0.2 10 3/mcL Normal 0.0-0.[address] [facility] Comment on above: Performed By: #### C BC, ADIFF, RFP, ANEU, IBC, GFR, FE, URIC, FERR #### [place] [address] #### PTH #### [address] [address] Eosinophils/100 WBC (Bld) 3.0 % Normal 0.0-7.0 [facility] Comment on above: Performed By: #### C BC, ADIFF, RFP, ANEU, IBC, GFR, FE, URIC, FERR #### [address] [address] #### PTH #### [address] [address] Lymphocyte, Absolute 1.2 10 3/mcL Normal 0.9-4.[address] [facility] Comment on above: Performed By: #### C BC, ADIFF, RFP, ANEU, IBC, GFR, FE, URIC, FERR #### [place] [address] #### PTH #### [address] [address] Lymphocytes/100 WBC (Bld) 15.9 % Low 20.0-40.0 [facility] Comment on above: Performed By: #### C BC, ADIFF, RFP, ANEU, IBC, GFR, FE, URIC, FERR #### [address] [address] #### PTH #### [address] [address] Monocyte, Absolute 0.5 10 3/mcL Normal 0.1-1.4 [facility] Comment on above: Performed By: #### C BC, ADIFF, RFP, ANEU, IBC, GFR, FE, URIC, FERR #### [address] [address] #### PTH #### [address] [address] Monocytes/100 WBC (Bld) 7.1 % Normal 2.0-13.0 [facility] Comment on above: Performed By: #### C BC, ADIFF, RFP, ANEU, IBC, GFR, FE, URIC, FERR #### [address] [address] #### PTH #### [address] [address] Neutrophils/100 WBC (Bld) 72.9 % Normal 50.0-75.0 [facility] Comment on above: Performed By: #### C BC, ADIFF, RFP, ANEU, IBC, GFR, FE, URIC, FERR #### [address] [address] #### PTH #### [address] [address] .GFRon 10-18-2024 Estimated Glomerular Filtration Rate 71 ml/min/1.73sqm Normal [facility] Comment on above: Result Comment: Stages of Chronic Kidney Disease (CKD) Stage Description eGFR(ml/min/1.73 sq.m.) CKD 1 Normal kidney function or >=90 normal kindney function with possible kidney damage (ex. Proteinuria) CKD 2 Kidney damage with mild loss 60-89 of kidney function CKD 3a Mild to moderate loss of kidney 45-59 function CKD 3b Moderate to severe loss of 30-44 of kindey function CKD 4 Severe loss of kidney function 15-29 CKD 5 Kidney failure <15 Note: (go live 2024) the eGFR calculation was updated to the 2020 CKD-EPI creatinine equation without a race factor to calculate the eGFR results. Performed By: #### C BC, ADIFF, RFP, ANEU, IBC, GFR, FE, URIC, FERR #### [address] [address] #### PTH #### [place] [address] .NEUABSon 10-18-2024 Neutrophil, Absolute 5.5 10 3/mcL Normal 2.3-8.[address] [facility] Comment on above: Performed By: #### C BC, ADIFF, RFP, ANEU, IBC, GFR, FE, URIC, FERR #### [place] [address] #### PTH #### [place] [address] CBCon 10-18-2024 Erythrocyte distribution width (RBC) [Ratio] 13.3 % Normal 11.5-15.5 [facility] Comment on above: Performed By: #### C BC, ADIFF, RFP, ANEU, IBC, GFR, FE, URIC, FERR #### [place] [address] #### PTH #### [place] [address] Hematocrit (Bld) [Volume fraction] 39.6 % Normal 34.0-46.0 [facility] Comment on above: Performed By: #### C BC, ADIFF, RFP, ANEU, IBC, GFR, FE, URIC, FERR #### [place] [address] #### PTH #### [place] [address] Hgb 13.0 G/dL Normal 12.0-16.0 [facility] Comment on above: Performed By: #### C BC, ADIFF, RFP, ANEU, IBC, GFR, FE, URIC, FERR #### [place] [address] #### PTH #### [place] [address] MCH (RBC) [Entitic mass] 31.0 pg Normal 27.0-33.0 [facility] Comment on above: Performed By: #### C BC, ADIFF, RFP, ANEU, IBC, GFR, FE, URIC, FERR #### [place] [address] #### PTH #### [place] [address] MCHC 32.9 G/dL Normal 32.0-36.0 [facility] Comment on above: Performed By: #### C BC, ADIFF, RFP, ANEU, IBC, GFR, FE, URIC, FERR #### [place] [address] #### PTH #### [place] [address] MCV (RBC) [Entitic vol] 94.1 fL Normal 80.0-99.0 [facility] Comment on above: Performed By: #### C BC, ADIFF, RFP, ANEU, IBC, GFR, FE, URIC, FERR #### [place] [address] #### PTH #### [place] [address] Platelet 215 10 3/mcL Normal 150-450 [facility] Comment on above: Performed By: #### C BC, ADIFF, RFP, ANEU, IBC, GFR, FE, URIC, FERR #### [place] [address] #### PTH #### [place] [address] Platelet mean volume (Bld) [Entitic vol] 9.1 fL Normal 6.6-10.5 [facility] Comment on above: Performed By: #### C BC, ADIFF, RFP, ANEU, IBC, GFR, FE, URIC, FERR #### [place] [address] #### PTH #### [place] [address] RBC 4.21 10 6/mcL Normal 4.10-5.30 [facility] Comment on above: Performed By: #### C BC, ADIFF, RFP, ANEU, IBC, GFR, FE, URIC, FERR #### [place] [address] #### PTH #### [place] [address] WBC 7.6 10 3/mcL Normal 4.5-10.8 [facility] Comment on above: Performed By: #### C BC, ADIFF, RFP, ANEU, IBC, GFR, FE, URIC, FERR #### [place] [address] #### PTH #### [place] [address] FEon 10-18-2024 Iron [Mass/Vol] 75 ug/dL Normal 50-170 [facility] Comment on above: Performed By: #### C BC, ADIFF, RFP, ANEU, IBC, GFR, FE, URIC, FERR #### [place] [address] #### PTH #### [place] [address] Jamil 10-18-2024 Ferritin [Mass/Vol] 87.0 ng/mL Normal 8.0-252.0 [facility] Comment on above: Performed By: #### C BC, ADIFF, RFP, ANEU, IBC, GFR, FE, URIC, FERR #### [place] [address] #### PTH #### [place] [address] IBCon 10-18-2024 TIBC 315 mcg/dL Normal 250-450 [facility] Comment on above: Performed By: #### C BC, ADIFF, RFP, ANEU, IBC, GFR, FE, URIC, FERR #### [place] [address] [place], [place] [address] #### PTH #### [address] [address] LABORATORYOrdered By: SYSTEM SYSTEM on 10-18-2024 Albumin BCP dye [Mass/Vol] 3.9 G/dL Normal 3.4 - 4.8 G/dL AO ADM SS Basophils (Bld) [#/Vol] 0.1 103/mcL Normal 0.0 - 0.2 10^3/mcL AO Workflow SS Basophils/100 WBC (Bld) 1.1 % Normal 0.0 - 2.5 % AO Workflow SS Calcium [Mass/Vol] 9.3 mg/dL Normal 8.4 - 10. 2 mg/dL AO ADM SS Chloride [Moles/Vol] 98 mmol/L Normal 98 - 10 7 mmol/L AO ADM SS CO2 [Moles/Vol] 41 mmol/L Invalid Interpretation Code 23 - 31 mmol/L AO ADM SS Creatinine [Mass/Vol] 0.87 mg/dL Normal 0.55 - 1.02 mg/dL AO ADM SS Comment on above: Interpretive Data: T esting performed on Siemens Dimension EXL analyzer using a modified kinetic Abilio technique. Electrolyte Balance 2.0 mEq/L Low 4.0 - 15 .0 mEq/L AO ADM SS Eosinophil, Absolute 0.2 103/mcL Normal 0.0 - 0 .7 10^3/mcL AO Workflow SS Eosinophils/100 WBC (Bld) 3.0 % Normal 0.0 - 7.0 % AO Workflow SS Erythrocyte distribution width (RBC) [Ratio] 13.3 % Normal 11.5 - 15.5 % AO Workflow SS Estimated Glomerular Filtration Rate 71 ml/min/1.73sqm Invalid Interpretation Code AO Chemistry S Comment on above: Interpretive Data: Stages of Chronic Kidney Disease (CKD) Stage Description eGFR(ml/min/1.73 sq.m.) CKD 1 Normal kidney function or >=90 normal kindney function with possible kidney damage (ex. Proteinuria) CKD 2 Kidney damage with mild loss 60-89 of kidney function CKD 3a Mild to moderate loss of kidney 45-59 function CKD 3b Moderate to severe loss of 30-44 of kindey function CKD 4 Severe loss of kidney function 15-29 CKD 5 Kidney failure <15 Note: (go live 2024) the eGFR calculation was updated to the 2020 CKD-EPI creatinine equation without a race factor to calculate the eGFR results. Ferritin [Mass/Vol] 87.0 ng/mL Normal 8.0 - 25 2.0 ng/mL AO ADM SS Glucose [Mass/Vol] 107 mg/dL Normal 83 - 110 mg/dL AO ADM SS Hematocrit (Bld) [Volume fraction] 39.6 % Normal 34.0 - 46.0 % AO Workflow SS Hemoglobin (Bld) [Mass/Vol] 13.0 G/dL Normal 12.0 - 16.0 G/dL AO Workflow SS Iron [Mass/Vol] 75 ug/dL Normal 50 - 170 mcg/dL AO ADM SS Iron binding capacity [Mass/Vol] 315 mcg/dL Normal 250 - 450 mcg/dL AO ADM SS Lymphocytes (Bld) [#/Vol] 1.2 103/mcL Normal 0.9 - 4.3 10^3/mcL AO Workflow SS Lymphocytes/100 WBC (Bld) 15.9 % Low 20.0 - 40.0 % AO Workflow SS MCH (RBC) [Entitic mass] 31.0 pg Normal 27.0 - 33.0 pg AO Workflow SS MCHC 32.9 G/dL Normal 32.0 - 36.0 G/dL AO Workflow SS MCV (RBC) [Entitic vol] 94.1 fL Normal 80.0 - 99.0 fL AO Workflow SS Monocytes (Bld) [#/Vol] 0.5 103/mcL Normal 0.1 - 1.4 10^3/mcL AO Workflow SS Monocytes/100 WBC (Bld) 7.1 % Normal 2.0 - 13.0 % AO Workflow SS Neutrophils (Bld) [#/Vol] 5.5 103/mcL Normal 2.3 - 8.1 10^3/mcL AO Workflow SS Neutrophils/100 WBC (Bld) 72.9 % Normal 50.0 - 75.0 % AO Workflow SS Parathyrin.intact [Mass/Vol] 103.7 pg/mL High 18.5 - 88.0 pg/mL AH ADM SS Phosphate [Mass/Vol] 3.7 mg/dL Normal 2.3 - 4 .1 mg/dL AO ADM SS Platelet mean volume (Bld) [Entitic vol] 9.1 fL Normal 6.6 - 10.5 fL AO Workflow SS Platelets (Bld) [#/Vol] 215 103/mcL Normal 150 - 450 10^3/mcL AO Workflow SS Potassium [Moles/Vol] 4.6 mmol/L Normal 3.5 - 5.1 mmol/L AO ADM SS RBC (Bld) [#/Vol] 4.21 106/mcL Normal 4.10 - 5.3 0 10^6/mcL AO Workflow SS Sodium [Moles/Vol] 141 mmol/L Normal 136 - 145 mmol/L AO ADM SS Urea nitrogen [Mass/Vol] 19 mg/dL High 7 - 18 mg/dL AO ADM SS Urea nitrogen/Creatinine [Mass ratio] 22 ratio Normal 7 - 27 ratio AO ADM SS Uric Acid Lvl 5.0 mg/dL Normal 2.6 - 6.2 mg/dL AO ADM SS WBC (Bld) [#/Vol] 7.6 103/mcL Normal 4.5 - 10.8 10^3/mcL AO Workflow SS PTHon 10-18-2024 PTH, Intact 103.7 pg/mL High 18.5-88.0 [facility] Comment on above: Performed By: #### C BC, ADIFF, RFP, ANEU, IBC, GFR, FE, URIC, FERR #### [address] [address] #### PTH #### [address] [address] RFPon 10-18-2024 Albumin Level 3.9 G/dL Normal 3.4-4.8 [facility] Comment on above: Performed By: #### C BC, ADIFF, RFP, ANEU, IBC, GFR, FE, URIC, FERR #### [address] [address] #### PTH #### [address] [address] BUN/Creatinine Ratio 22 ratio Normal 7- [facility] Comment on above: Performed By: #### C BC, ADIFF, RFP, ANEU, IBC, GFR, FE, URIC, FERR #### [address] [address] #### PTH #### [address] [address] Calcium [Mass/Vol] 9.3 mg/dL Normal 8.4-10.2 [facility] Comment on above: Performed By: #### C BC, ADIFF, RFP, ANEU, IBC, GFR, FE, URIC, FERR #### [address] [address] #### PTH #### [address] [address] Chloride [Moles/Vol] 98 mmol/L Normal 98-107 [facility] Comment on above: Performed By: #### C BC, ADIFF, RFP, ANEU, IBC, GFR, FE, URIC, FERR #### [place] [address] #### PTH #### [address] [address] CO2 [Moles/Vol] 41 mmol/L Critically abnormal 23-31 [facility] Comment on above: Performed By: #### C BC, ADIFF, RFP, ANEU, IBC, GFR, FE, URIC, FERR #### [place] [address] #### PTH #### [address] [address] Creatinine [Mass/Vol] 0.87 mg/dL Normal 0.55-1.02 [facility] Comment on above: Result Comment: Test ing performed on Siemens Dimension EXL analyzer using a modified kinetic Abilio technique. Performed By: #### C BC, ADIFF, RFP, ANEU, IBC, GFR, FE, URIC, FERR #### [place] [address] #### PTH #### [address] [address] Electrolyte Balance 2.0 mEq/L Low 4.0-15.0 [facility] Comment on above: Performed By: #### C BC, ADIFF, RFP, ANEU, IBC, GFR, FE, URIC, FERR #### [place] [address] #### PTH #### [address] [address] Glucose [Mass/Vol] 107 mg/dL Normal 83-110 [facility] Comment on above: Performed By: #### C BC, ADIFF, RFP, ANEU, IBC, GFR, FE, URIC, FERR #### [address] [address] #### PTH #### [address] [address] Phosphate [Mass/Vol] 3.7 mg/dL Normal 2.3-4.1 [facility] Comment on above: Performed By: #### C BC, ADIFF, RFP, ANEU, IBC, GFR, FE, URIC, FERR #### [address] [address] #### PTH #### [address] [address] Potassium [Moles/Vol] 4.6 mmol/L Normal 3.5-5.1 [facility] Comment on above: Performed By: #### C BC, ADIFF, RFP, ANEU, IBC, GFR, FE, URIC, FERR #### [address] [address] #### PTH #### [address] [address] Sodium [Moles/Vol] 141 mmol/L Normal 136-145 [facility] Comment on above: Performed By: #### C BC, ADIFF, RFP, ANEU, IBC, GFR, FE, URIC, FERR #### [address] [address] #### PTH #### [address] [address] Urea nitrogen [Mass/Vol] 19 mg/dL High 7-18 [facility] Comment on above: Performed By: #### C BC, ADIFF, RFP, ANEU, IBC, GFR, FE, URIC, FERR #### [address] [address] #### PTH #### [place] [id number] [place] [address] URICon 10-18-2024 Uric Acid Lvl 5.0 mg/dL Normal 2.6-6.2 [facility] Comment on above: Performed By: #### C BC, ADIFF, RFP, ANEU, IBC, GFR, FE, URIC, FERR #### [facility] [address] [place], [place] [address] #### PTH #### [facility] [address] [place] [address] THORAX SCREENING W/O CONT RASTon 09-27-2024 CT THORAX SCREENING W/O CONTRAST ORIGINAL EXAMINATION: LOW DOSE SCREENING CT OF THE CHEST WITHOUT CONTRAST09/25/2024 4:[address] CHEST WITHOUT CONTRAST LOW DOSE SCREENING EXAM DESCRIPTION: TECHNIQUE: Low dose lung cancer screening CT of the chest was performed without the administration of intravenous contrast. Multiplanar reformatted images are provided for review. Automated exposure control, iterative reconstruction, and/or weight based adjustment of the mA/kV was utilized to reduce the radiation dose to as low as reasonably achievable. COMPARISON: CT chest, September 30, 2023 HISTORY: ORDERING SYSTEM PROVIDED HISTORY: Reason for Exam: PERSONAL HX OF TOBACCO USE 20 cigs per day for 50 years, 50 pack years FINDINGS: The pulmonary parenchyma is without acute consolidation, interstitial mild centrilobular emphysematous changes. No acute consolidation. 4 mm ground-glass nodule right lower lobe image 36. 3 mm solid nodule left lower lobe image 69. A Pemberton seal noted within the right lower lobe. Interstitial scarring extending to the pleural surface within the right middle lobe and left lingula.. There is no pneumothorax or pleural effusion. There are no enlarged lymph nodes within the mediastinal, cash, or either axilla by pathologic size criteria. Atherosclerosis within the coronary vasculature. The heart and great vessels are within normal limits. Limited views of the upper abdominal viscera are unremarkable. The osseous structures are without gross or sclerotic lesion. P-see AC IMPRESSION: 1. Lung rads 2. Benign appearing nodules. Recommend annual LD CT. 2. Coronary ASVD. Lung nodule tracking: Nodule: S3 Other findings: P-CAC Change: No change Recall: Oneyear screening Recall type: 5= LDCT Lung rads: 2 S Interpreted by: Christiano Lang MD Preliminary Report By: Christiano Lang MD Electronically signed By Christiano Lang MD Dictated Date: 09/27/2024 10:38:28 PM Prelim Date: 09/27/2024 10:49:53 PM Sign Date: 09/27/2024 10:49:53 PM Ordering Provider: REBECCA Gonzalez [facility] Basic Metabolic Profile (BMP )on 09-03-2024 BUN/CRE 22.6 RATIO High 10-20 [facility] Comment on above: Performed By: #### L 500.2500, L100.0100 #### [facility] [address] [place], [address] CA,Total 8.9 mg/dL Normal 8.5-10.1 [facility] Comment on above: Performed By: #### L 500.2500, L100.0100 #### [facility] [address] [place], [address] Chloride [Moles/Vol] 102 mmol/L Normal 98-107 [facility] Comment on above: Performed By: #### L 500.2500, L100.0100 #### [facility] [address] [place], [address] CO2 [Moles/Vol] 34.0 mmol/L High 21.0-32.0 [facility] Comment on above: Performed By: #### L 500.2500, L100.0100 #### [facility] [address] [place], [address] Creatinine [Mass/Vol] 0.71 mg/dL Normal 0.55-1.02 [facility] Comment on above: Result Comment: The validity of the calculated GFR GFRAA in patients over 70 years has not been determined. Clinical correlation is essential. Performed By: #### L 500.2500, L100.0100 #### [facility] [address] [place], [address] ECRCL 65.02 ml/min Normal [facility] Comment on above: Performed By: #### L 500.2500, L100.0100 #### [facility] [address] [place], [address] EST GFR - AA 105 mL/min Normal >60 [facility] Comment on above: Result Comment: Afri can Moldovan GFR Calc Performed By: #### L 500.2500, L100.0100 #### [facility] [address] [place], [address] GAP 1 Low 5-15 [facility] Comment on above: Performed By: #### L 500.2500, L100.0100 #### [facility] [address] [place], [address] GFR/1.73 sq M.predicted among non-blacks MDRD (S/P/Bld) [Vol rate/Area] 86 mL/min/{1.73_m2} Normal >60 [facility] Comment on above: Result Comment: Non- GFR Calc Performed By: #### L 500.2500, L100.0100 #### [facility] [address] [place], [address] Glucose [Mass/Vol] 149 mg/dL High 74-106 [facility] Comment on above: Result Comment: Fast ing Glucose result greater than or equal to 126 mg/dL suggests DIABETES MELLITUS per A.D.A. criteria. Performed By: #### L 500.2500, L100.0100 #### [facility] [address] [place], [address] Potassium [Moles/Vol] 4.5 mmol/L Normal 3.5-5.1 [facility] Comment on above: Performed By: #### L 500.2500, L100.0100 #### [facility] [address] [place], [address] Sodium [Moles/Vol] 136 mmol/L Normal 136-145 [facility] Comment on above: Performed By: #### L 500.2500, L100.0100 #### [facility] [address] [place], [address] Urea nitrogen [Mass/Vol] 16 mg/dL Normal 7-18 [facility] Comment on above: Performed By: #### L 500.2500, L100.0100 #### [facility] [address] [place], [address] CBC W/Diff, Automatedon 12-2 -2023 Absolute Lymph 0.70 X10 3/uL Low 0.83-4.51 [facility] Comment on above: Performed By: #### L 500.2500, L100.0100 #### [facility] [address] [place], [address] Absolute Neut 11.5 X10 3/uL High 2.0-7.7 [facility] Comment on above: Performed By: #### L 500.2500, L100.0100 #### [facility] [address] [place], [address] Basophils/100 WBC (Bld) 0.1 % Normal 0-1 [facility] Comment on above: Performed By: #### L 500.2500, L100.0100 #### [facility] [address] [place], [address] Eosinophils/100 WBC (Bld) 0.0 % Normal 0-5 [facility] Comment on above: Performed By: #### L 500.2500, L100.0100 #### [facility] [address] [place], [address] Erythrocyte distribution width (RBC) [Ratio] 13.4 % Normal 11.6-14.6 [facility] Comment on above: Performed By: #### L 500.2500, L100.0100 #### [facility] [address] [place], [address] Hematocrit (Bld) [Volume fraction] 33.8 % Low 37-47 [facility] Comment on above: Performed By: #### L 500.2500, L100.0100 #### [facility] [address] [place], [address] Hemoglobin (Bld) [Mass/Vol] 10.7 g/dL Low 12.0-15.0 [facility] Comment on above: Performed By: #### L 500.2500, L100.0100 #### [facility] [address] [place], [address] IG% 0.800 Normal 0.0-0.9 [facility] Comment on above: Result Comment: IG% - Immature Granulocytes (promyelocytes, myelocytes and metamyelocytes) > 1% indicates that a LEFT SHIFT is Present. Performed By: #### L 500.2500, L100.0100 #### [facility] [address] [place], [address] Lymphocytes/100 WBC (Bld) 5.5 % Low 19-41 [facility] Comment on above: Performed By: #### L 500.2500, L100.0100 #### [facility] [address] [place], [address] MCH (RBC) [Entitic mass] 31.0 pg Normal 27.0-32.0 [facility] Comment on above: Performed By: #### L 500.2500, L100.0100 #### [facility] [address] [place], [address] MCHC (RBC) [Mass/Vol] 31.7 g/dL Low 32-36 [facility] Comment on above: Performed By: #### L 500.2500, L100.0100 #### [facility] [address] [place], [address] MCV (RBC) [Entitic vol] 98.0 fL Normal 81-99 [facility] Comment on above: Performed By: #### L 500.2500, L100.0100 #### [facility] [address] [place], [address] Monocytes/100 WBC (Bld) 2.8 % Normal 0-10 [facility] Comment on above: Performed By: #### L 500.2500, L100.0100 #### [facility] [address] [place], [address] Neutrophils/100 WBC (Bld) 90.8 % High 47-70 [facility] Comment on above: Performed By: #### L 500.2500, L100.0100 #### [facility] [address] [place], [address] Nucleated RBC (Bld) [#/Vol] 0 10*3/uL Normal 0-5 [facility] Comment on above: Performed By: #### L 500.2500, L100.0100 #### [facility] [address] [place], [address] Platelet mean volume (Bld) [Entitic vol] 10.8 fL Normal 6.2-12.0 [facility] Comment on above: Performed By: #### L 500.2500, L100.0100 #### [facility] [address] [place], [address] Platelets (Bld) [#/Vol] 216 10*3/uL Normal 150-450 [facility] Comment on above: Performed By: #### L 500.2500, L100.0100 #### [facility] [address] [place], [address] RBC (Bld) [#/Vol] 3.45 10*6/uL Low 4.2-5.4 [facility] Comment on above: Performed By: #### L 500.2500, L100.0100 #### [facility] [address] [place], [address] RDW SD 48.2 fl High 35.1-43.9 [facility] Comment on above: Performed By: #### L 500.2500, L100.0100 #### [facility] [address] [place], [address] WBC (Bld) [#/Vol] 12.7 10*3/uL High 4.4-11.0 [facility] Comment on above: Performed By: #### L 500.2500, L100.0100 #### [facility] [address] [place], [address] Discharge Instructionon 08-07 Discharge Instruction [facility] Medical Records Department [address] [place] [address] Instructions for Home/Discharge Instructions 09/03/24 1035 MR#: [id number] Acct: [id number] Name: JANENE VASQUEZ Mikey Rep #: [id number] : [id number] 69 From: Benji Knowles MD PCP: Dr. Eliazar Barrios, DO Status:ADM IN Discharge Instructions DC O2, CPAP, BIPAP needs RN Home O2 Qualification: Home O2 Qualification: Is the patient on home oxygen Yes 09/03/24 12:50 Home O2 Qualification: AT REST 1-Pulse Ox at rest 95 09/03/24 12:50 1- Oxygen flow rate at rest 2 09/03/24 12:50 Home O2 Qualification: WITH AMBULATION 1- Pulse Ox with ambulation 86 09/03/24 12:50 1- Oxygen Flow Rate with 2 09/03/24 12:50 ambulation 2- Pulse Ox with ambulation 87 09/03/24 12:50 2- Oxygen Flow Rate with 4 09/03/24 12:50 ambulation 3- Pulse Ox with ambulation 92 09/03/24 12:50 3- Oxygen Flow Rate with 6 09/03/24 12:50 ambulation PSN CPAP BiPAP: BiPAP CPAP Settings per PSN Mode AVAPS 09/03/24 03:00 Bipap Delivery Device Face Mask 09/03/24 03:00 BiPAP Expiratory Pressure 8 09/03/24 03:00 BiPAP Rate 12 09/03/24 03:00 Fraction of Inspired Oxygen ( 36 09/03/24 03:00 FIO2) Home O2 Discharge instructions: Yes Type of respiratory needs?: Oxygen Oxygen frequency: Continuous Continuous oxygen liters per minute: 4 L/m Follow Up Care Test Results: Test results from this visit will be discussed in further detail at your follow-up appointment, if applicable. 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 She has advanced COPD /Emphysema. Continue incentive spirometry and PEP for 1 week Discharge Orders/Prescriptions Prescriptions: New amiodarone 200 mg Tablet 200 mg PO DAILY 30 Days Qty: 30 1RF dextromethorphan-guai fenesin 60-1,200 mg tablet extended release 12 hr 1 tab PO BID 7 Days Qty: 14 0RF lactulose 20 gram/30 mL Solution 10 g PO BID PRN (Reason: constipation) Qty: 1500 0RF nicotine 21 mg/24 hr Patch 24 Hour 21 mg transdermal DAILY 28 Days Qty: 28 0RF prednisone 20 mg tablet 40 mg PO DAILY 5 Days Qty: 10 0RF Continued sacubitril-valsartan [Entresto] 24-26 mg tablet 1 tab PO BID Patient Comments: TAKE 1 TABLET BY MOUTH TWICE A DAY ferrous sulfate 325 mg (65 mg iron) tablet 325 mg PO DAILY Patient Comments: TAKE 1 TABLET BY MOUTH EVERY DAY WITH FOOD cholecalciferol (vitamin D3) 50 mcg (2,000 unit) capsule 50 mcg PO DAILY Patient Comments: TAKE 1 CAPSULE BY MOUTH EVERY DAY atorvastatin 20 mg Tablet 20 mg PO QHS 30 Days Qty: 30 0RF aspirin 81 mg Tablet,Delayed Release (Dr/Ec) 81 mg PO DAILY@0800 30 Days Qty: 30 0RF Eliquis 5 mg tablet 5 mg PO BID torsemide 20 mg tablet 20 mg PO DAILY Trelegy Ellipta 100-62.5-25 mcg blister with device 1 ea INHALATION DAILY Trelegy Ellipta 100-62.5-25 mcg blister with device 1 inh inhalation DAILY metoprolol succinate 50 mg Tablet Extended Release 24 Hr 50 mg PO BID 30 Days Qty: 60 0RF Rx Instructions: Hold for heart less than 50 or systolic blood pressure less than 110 mmHg. Referrals / Follow Up: Eliazar Barrios DO [Primary Care Provider] - Benjie Mortensen MD [Med Staff - Active Staff] - Within 1 Month Kameron Brooke DO [Med Staff - Active Staff] - Within 2 Weeks Disposition Disposition (needs filled in before D/C Order can be placed): Home, Self Care 09/03/24 1440 Benji Knowles MD CC: Dr. Mickie Connell MD; Dr. Adan Silver MD; Dr. Alexandre Faulkner MD; Dr. Isacc Stover MD; Dr. Benjie Mortensen MD; Dr. Christiano Salmeron MD; Dr. Christiano Rodney DO; Dr. Kameron Brooke DO; Dr. Axel Weir MD; Dr. Roshan Huddleston MD; Dr. Vahid Kemp MD; Dr. Edmundo Nunez MD; Dr. Som Chua MD; Dr. Eliazar Barrios DO; Dr. Mihaela Ballesteros MD; Dr. Norma Mario MD; Dr. Nate Valdes MD; Dr. Javier Barrios MD; Dr. Srinath Bell MD; Dr. Della Champagne MD; Dr. Colten Villalba DO; Dr. Colt Fishman DO; Dr. Ismael Miranda MD; Dr. Elier Funez MD; Dr. Marcia Li MD Signed Normal [facility] Gram Stainon 09-03-2024 GS Acceptable Specimen? Yes (<25 Epithelial cells per/lpf) Gram Stain 1+ White Blood Cells No Epithelial cells Rare Gram positive cocci Normal [facility] Comment on above: Performed By: #### L 300.4310, L500.2500, L501.5425, L300.3900, L100.0100, L501.5200 #### [facility] [address] [place], [address] Respiratory Cultureon 2023 RESPC Mixed normal respiratory cynthia. No Streptococcus pneumoniae, beta-hemolytic Streptococcus or Staphylococcus aureus isolated. Normal [facility] Comment on above: Performed By: #### L 300.4310, L500.2500, L501.5425, L300.3900, L100.0100, L501.5200 #### [facility] [address] [place], [address] Basic Metabolic Profile (BMP )on 09-02-2024 BUN/CRE 14.0 RATIO Normal 10-20 [facility] Comment on above: Performed By: #### L 500.2500 #### [facility] [address] [place], [address] CA,Total 8.8 mg/dL Normal 8.5-10.1 [facility] Comment on above: Performed By: #### L 500.2500 #### [facility] [address] [place], [address] Chloride [Moles/Vol] 103 mmol/L Normal 98-107 [facility] Comment on above: Performed By: #### L 500.2500 #### [facility] [address] [place], [address] CO2 [Moles/Vol] 34.0 mmol/L High 21.0-32.0 [facility] Comment on above: Performed By: #### L 500.2500 #### [facility] [address] [place], [address] Creatinine [Mass/Vol] 0.64 mg/dL Normal 0.55-1.02 [facility] Comment on above: Result Comment: The validity of the calculated GFR GFRAA in patients over 70 years has not been determined. Clinical correlation is essential. Performed By: #### L 500.2500 #### [facility] [address] [place], [address] ECRCL 65.51 ml/min Normal [facility] Comment on above: Performed By: #### L 500.2500 #### [facility] [address] [place], [address] EST GFR - AA 117 mL/min Normal >60 [facility] Comment on above: Result Comment: Afri can Moldovan GFR Calc Performed By: #### L 500.2500 #### [facility] [address] [place], [address] GAP -1 Low 5-15 [facility] Comment on above: Performed By: #### L 500.2500 #### [facility] [address] [place], [address] GFR/1.73 sq M.predicted among non-blacks MDRD (S/P/Bld) [Vol rate/Area] 97 mL/min/{1.73_m2} Normal >60 [facility] Comment on above: Result Comment: Non- GFR Calc Performed By: #### L 500.2500 #### [facility] [address] [place], [address] Glucose [Mass/Vol] 160 mg/dL High 74-106 [facility] Comment on above: Result Comment: Fast ing Glucose result greater than or equal to 126 mg/dL suggests DIABETES MELLITUS per A.D.A. criteria. Performed By: #### L 500.2500 #### [facility] [address] [place], [address] Potassium [Moles/Vol] 4.6 mmol/L Normal 3.5-5.1 [facility] Comment on above: Performed By: #### L 500.2500 #### [facility] [address] [place], [address] Sodium [Moles/Vol] 136 mmol/L Normal 136-145 [facility] Comment on above: Performed By: #### L 500.2500 #### [facility] [address] [place], [address] Urea nitrogen [Mass/Vol] 9 mg/dL Normal 7-18 [facility] Comment on above: Performed By: #### L 500.2500 #### [facility] [address] [place], [address] CBC W/Diff, Automatedon 12-2 Absolute Lymph 0.58 X10 3/uL Low 0.83-4.51 [facility] Comment on above: Performed By: #### L 100.0100 #### [facility] [address] [place], [address] Absolute Neut 8.9 X10 3/uL High 2.0-7.7 [facility] Comment on above: Performed By: #### L 100.0100 #### [facility] [address] [place], [address] Basophils/100 WBC (Bld) 0.1 % Normal 0-1 [facility] Comment on above: Performed By: #### L 100.0100 #### [facility] [address] [place], [address] Eosinophils/100 WBC (Bld) 0.0 % Normal 0-5 [facility] Comment on above: Performed By: #### L 100.0100 #### [facility] [address] [place], [address] Erythrocyte distribution width (RBC) [Ratio] 13.1 % Normal 11.6-14.6 [facility] Comment on above: Performed By: #### L 100.0100 #### [facility] [address] [place], [address] Hematocrit (Bld) [Volume fraction] 32.5 % Low 37-47 [facility] Comment on above: Performed By: #### L 100.0100 #### [facility] [address] [place], [address] Hemoglobin (Bld) [Mass/Vol] 10.1 g/dL Low 12.0-15.0 [facility] Comment on above: Performed By: #### L 100.0100 #### [facility] [address] [place], [address] IG% 0.700 Normal 0.0-0.9 [facility] Comment on above: Result Comment: IG% - Immature Granulocytes (promyelocytes, myelocytes and metamyelocytes) > 1% indicates that a LEFT SHIFT is Present. Performed By: #### L 100.0100 #### [facility] [address] [place], [address] Lymphocytes/100 WBC (Bld) 5.8 % Low 19-41 [facility] Comment on above: Performed By: #### L 100.0100 #### [facility] [address] [place], [address] MCH (RBC) [Entitic mass] 31.0 pg Normal 27.0-32.0 [facility] Comment on above: Performed By: #### L 100.0100 #### [facility] [address] [place], [address] MCHC (RBC) [Mass/Vol] 31.1 g/dL Low 32-36 [facility] Comment on above: Performed By: #### L 100.0100 #### [facility] [address] [place], [address] MCV (RBC) [Entitic vol] 99.7 fL High 81-99 [facility] Comment on above: Performed By: #### L 100.0100 #### [facility] [address] [place], [address] Monocytes/100 WBC (Bld) 4.0 % Normal 0-10 [facility] Comment on above: Performed By: #### L 100.0100 #### [facility] [address] [place], [address] Neutrophils/100 WBC (Bld) 89.4 % High 47-70 [facility] Comment on above: Performed By: #### L 100.0100 #### [facility] [address] [place], [address] Nucleated RBC (Bld) [#/Vol] 0 10*3/uL Normal 0-5 [facility] Comment on above: Performed By: #### L 100.0100 #### [facility] [address] [place], [address] Platelet mean volume (Bld) [Entitic vol] 10.5 fL Normal 6.2-12.0 [facility] Comment on above: Performed By: #### L 100.0100 #### [facility] [address] [place], [address] Platelets (Bld) [#/Vol] 188 10*3/uL Normal 150-450 [facility] Comment on above: Performed By: #### L 100.0100 #### [facility] [address] [place], [address] RBC (Bld) [#/Vol] 3.26 10*6/uL Low 4.2-5.4 [facility] Comment on above: Performed By: #### L 100.0100 #### [facility] [address] [place], [address] RDW SD 48.2 fl High 35.1-43.9 [facility] Comment on above: Performed By: #### L 100.0100 #### [facility] [address] [place], [address] WBC (Bld) [#/Vol] 9.9 10*3/uL Normal 4.4-11.0 [facility] Comment on above: Performed By: #### L 100.0100 #### [facility] [address] [place], [address] Basic Metabolic Profile (BMP )on 09-01-2024 BUN/CRE 21.8 RATIO High 10-20 [facility] Comment on above: Performed By: #### L 300.4310, L500.2500, L501.5425, L300.3900, L100.0100, L501.5200 #### [facility] [address] [place], [address] CA,Total 8.9 mg/dL Normal 8.5-10.1 [facility] Comment on above: Performed By: #### L 300.4310, L500.2500, L501.5425, L300.3900, L100.0100, L501.5200 #### [facility] [address] [place], [address] Chloride [Moles/Vol] 105 mmol/L Normal 98-107 [facility] Comment on above: Performed By: #### L 300.4310, L500.2500, L501.5425, L300.3900, L100.0100, L501.5200 #### [facility] [address] [place], [address] CO2 [Moles/Vol] 35.0 mmol/L High 21.0-32.0 [facility] Comment on above: Performed By: #### L 300.4310, L500.2500, L501.5425, L300.3900, L100.0100, L501.5200 #### [facility] [address] [place], [address] Creatinine [Mass/Vol] 0.64 mg/dL Normal 0.55-1.02 [facility] Comment on above: Result Comment: The validity of the calculated GFR GFRAA in patients over 70 years has not been determined. Clinical correlation is essential. Performed By: #### L 300.4310, L500.2500, L501.5425, L300.3900, L100.0100, L501.5200 #### [facility] [address] [place], [address] ECRCL 63.72 ml/min Normal [facility] Comment on above: Performed By: #### L 300.4310, L500.2500, L501.5425, L300.3900, L100.0100, L501.5200 #### [facility] [address] [place], [address] EST GFR - AA 117 mL/min Normal >60 [facility] Comment on above: Result Comment: Afri can [place]ovan GFR Calc Performed By: #### L 300.4310, L500.2500, L501.5425, L300.3900, L100.0100, L501.5200 #### [facility] [address] [place], [address] GAP -2 Low 5-15 [facility] Comment on above: Performed By: #### L 300.4310, L500.2500, L501.5425, L300.3900, L100.0100, L501.5200 #### [facility] [address] [place], [address] GFR/1.73 sq M.predicted among non-blacks MDRD (S/P/Bld) [Vol rate/Area] 97 mL/min/{1.73_m2} Normal >60 [facility] Comment on above: Result Comment: Non- GFR Calc Performed By: #### L 300.4310, L500.2500, L501.5425, L300.3900, L100.0100, L501.5200 #### [facility] [address] [place], [address] Glucose [Mass/Vol] 159 mg/dL High 74-106 [facility] Comment on above: Result Comment: Fast ing Glucose result greater than or equal to 126 mg/dL suggests DIABETES MELLITUS per A.D.A. criteria. Performed By: #### L 300.4310, L500.2500, L501.5425, L300.3900, L100.0100, L501.5200 #### [facility] [address] [place], [address] Potassium [Moles/Vol] 4.6 mmol/L Normal 3.5-5.1 [facility] Comment on above: Performed By: #### L 300.4310, L500.2500, L501.5425, L300.3900, L100.0100, L501.5200 #### [facility] [address] [place], [address] Sodium [Moles/Vol] 138 mmol/L Normal 136-145 [facility] Comment on above: Performed By: #### L 300.4310, L500.2500, L501.5425, L300.3900, L100.0100, L501.5200 #### [facility] [address] [place], [address] Urea nitrogen [Mass/Vol] 14 mg/dL Normal 7-18 [facility] Comment on above: Performed By: #### L 300.4310, L500.2500, L501.5425, L300.3900, L100.0100, L501.5200 #### [facility] [address] [place], [address] Blood Gases by [facility] 09-01-2 024 Base excess Calc (Bld) [Moles/Vol] 3 mmol/L High -2 to +2 [facility] Comment on above: Performed By: #### L 300.4310, L500.2500, L501.5425, L300.3900, L100.0100, L501.5200 #### [facility] [address] [place], [address] Blood Gas Type ART Normal [facility] Comment on above: Performed By: #### L 300.4310, L500.2500, L501.5425, L300.3900, L100.0100, L501.5200 #### [facility] [address] [place], [address] CO2 [Moles/Vol] 33 mmol/L Normal [facility] Comment on above: Performed By: #### L 300.4310, L500.2500, L501.5425, L300.3900, L100.0100, L501.5200 #### [facility] [address] [place], [address] Comment 24 14 Normal [facility] Comment on above: Performed By: #### L 300.4310, L500.2500, L501.5425, L300.3900, L100.0100, L501.5200 #### [facility] [address] [place], [address] FI02 40.0 [facility] Comment on above: Performed By: #### L 300.4310, L500.2500, L501.5425, L300.3900, L100.0100, L501.5200 #### [facility] [address] [place], [address] HCO3 (Bld) [Moles/Vol] 30.6 mmol/L High 22-26 W [facility] Comment on above: Performed By: #### L 300.4310, L500.2500, L501.5425, L300.3900, L100.0100, L501.5200 #### [facility] [address] [place], [address] Mode Not entered [facility] Comment on above: Performed By: #### L 300.4310, L500.2500, L501.5425, L300.3900, L100.0100, L501.5200 #### [facility] [address] [place], [address] O2 Delivery Dev Not entered [facility] Comment on above: Performed By: #### L 300.4310, L500.2500, L501.5425, L300.3900, L100.0100, L501.5200 #### [facility] [address] [place], [address] pCO2 77.1 mmHg Invalid Interpretation Code 35-45 [facility] Comment on above: Performed By: #### L 300.4310, L500.2500, L501.5425, L300.3900, L100.0100, L501.5200 #### [facility] [address] [place], [address] PEEP 8 Normal [facility] Comment on above: Performed By: #### L 300.4310, L500.2500, L501.5425, L300.3900, L100.0100, L501.5200 #### [facility] [address] [place], [address] pH (Bld) 7.21 [pH] Low 7.35-7.45 [facility] Comment on above: Performed By: #### L 300.4310, L500.2500, L501.5425, L300.3900, L100.0100, L501.5200 #### [facility] [address] [place], [address] PO2 104 mmHG High 75-100 [facility] Comment on above: Performed By: #### L 300.4310, L500.2500, L501.5425, L300.3900, L100.0100, L501.5200 #### [facility] [address] [place], [address] Read Back By Yes [facility] Comment on above: Performed By: #### L 300.4310, L500.2500, L501.5425, L300.3900, L100.0100, L501.5200 #### [facility] [address] [place], [address] Results To perry [facility] Comment on above: Performed By: #### L 300.4310, L500.2500, L501.5425, L300.3900, L100.0100, L501.5200 #### [facility] [address] [place], [address] RR 18 Normal [facility] Comment on above: Performed By: #### L 300.4310, L500.2500, L501.5425, L300.3900, L100.0100, L501.5200 #### [facility] [address] [place], [address] SITE L Radial Normal [facility] Comment on above: Performed By: #### L 300.4310, L500.2500, L501.5425, L300.3900, L100.0100, L501.5200 #### [facility] [address] [place], [address] SO2 96 Normal 95-99 [facility] Comment on above: Performed By: #### L 300.4310, L500.2500, L501.5425, L300.3900, L100.0100, L501.5200 #### [facility] [address] [place], [address] Time Given 08:06:51 Normal [facility] Comment on above: Performed By: #### L 300.4310, L500.2500, L501.5425, L300.3900, L100.0100, L501.5200 #### [facility] [address] [place], [address] Vt 450.0 mL Normal [facility] Comment on above: Performed By: #### L 300.4310, L500.2500, L501.5425, L300.3900, L100.0100, L501.5200 #### [facility] [address] [place], [address] CAMILA TEST Positive Normal [facility] Comment on above: Performed By: #### L 300.4310, L500.2500, L501.5425, L300.3900, L100.0100, L501.5200 #### [facility] [address] [place], [address] Base excess Calc (Bld) [Moles/Vol] 10 mmol/L High -2 to +2 [facility] Comment on above: Performed By: #### L 300.4310, L500.2500, L501.5425, L300.3900, L100.0100, L501.5200 #### [facility] [address] [place], [address] Blood Gas Type ART [facility] Comment on above: Performed By: #### L 300.4310, L500.2500, L501.5425, L300.3900, L100.0100, L501.5200 #### [facility] [address] [place], [address] CO2 [Moles/Vol] 39 mmol/L Normal [facility] Comment on above: Performed By: #### L 300.4310, L500.2500, L501.5425, L300.3900, L100.0100, L501.5200 #### [facility] [address] [place], [address] FI02 35.0 Normal [facility] Comment on above: Performed By: #### L 300.4310, L500.2500, L501.5425, L300.3900, L100.0100, L501.5200 #### [facility] [address] [place], [address] HCO3 (Bld) [Moles/Vol] 36.7 mmol/L High 22-26 W [facility] Comment on above: Performed By: #### L 300.4310, L500.2500, L501.5425, L300.3900, L100.0100, L501.5200 #### [facility] [address] [place], [place], [facility] Mode Not entered Normal [facility] Comment on above: Performed By: #### L 300.4310, L500.2500, L501.5425, L300.3900, L100.0100, L501.5200 #### [facility] [address] [place], [address] O2 Delivery Dev BiPAP Normal [facility] Comment on above: Performed By: #### L 300.4310, L500.2500, L501.5425, L300.3900, L100.0100, L501.5200 #### [facility] [address] [place], [address] pCO2 83.2 mmHg Invalid Interpretation Code 35-45 [facility] Comment on above: Performed By: #### L 300.4310, L500.2500, L501.5425, L300.3900, L100.0100, L501.5200 #### [facility] [address] [place], [address] PEEP 12 [facility] Comment on above: Performed By: #### L 300.4310, L500.2500, L501.5425, L300.3900, L100.0100, L501.5200 #### [facility] [address] [place], [address] pH (Bld) 7.25 [pH] Low 7.35-7.45 [facility] Comment on above: Performed By: #### L 300.4310, L500.2500, L501.5425, L300.3900, L100.0100, L501.5200 #### [facility] [address] [place], [address] PO2 76 mmHG Normal 75-100 [facility] Comment on above: Performed By: #### L 300.4310, L500.2500, L501.5425, L300.3900, L100.0100, L501.5200 #### [facility] [address] [place], [address] Read Back By Yes [facility] Comment on above: Performed By: #### L 300.4310, L500.2500, L501.5425, L300.3900, L100.0100, L501.5200 #### [facility] [address] [place], [address] Perdomo [facility] Comment on above: Performed By: #### L 300.4310, L500.2500, L501.5425, L300.3900, L100.0100, L501.5200 #### [facility] [address] [place], [address] RR 12 [facility] Comment on above: Performed By: #### L 300.4310, L500.2500, L501.5425, L300.3900, L100.0100, L501.5200 #### [facility] [address] [place], [address] SITE L Radial Normal [facility] Comment on above: Performed By: #### L 300.4310, L500.2500, L501.5425, L300.3900, L100.0100, L501.5200 #### [facility] [address] [place], [address] SO2 91 Low 95-99 [facility] Comment on above: Performed By: #### L 300.4310, L500.2500, L501.5425, L300.3900, L100.0100, L501.5200 #### [facility] [address] [place], [address] Time Given 03:31:58 [facility] Comment on above: Performed By: #### L 300.4310, L500.2500, L501.5425, L300.3900, L100.0100, L501.5200 #### [facility] [address] [place], [address] Vt 450.0 mL Normal [facility] Comment on above: Performed By: #### L 300.4310, L500.2500, L501.5425, L300.3900, L100.0100, L501.5200 #### [facility] [address] [place], [address] CAMILA TEST Positive [facility] Comment on above: Performed By: #### L 300.4310, L500.2500, L501.5425, L300.3900, L100.0100, L501.5200 #### [facility] [address] [place], [address] Base excess Calc (Bld) [Moles/Vol] 5 mmol/L High -2 to +2 [facility] Comment on above: Performed By: #### L 300.4310, L500.2500, L501.5425, L300.3900, L100.0100, L501.5200 #### [facility] [address] [place], [address] Blood Gas Type ART [facility] Comment on above: Performed By: #### L 300.4310, L500.2500, L501.5425, L300.3900, L100.0100, L501.5200 #### [facility] [address] [place], [address] CO2 [Moles/Vol] 36 mmol/L [facility] Comment on above: Performed By: #### L 300.4310, L500.2500, L501.5425, L300.3900, L100.0100, L501.5200 #### [facility] [address] [place], [address] FI02 50.0 [facility] Comment on above: Performed By: #### L 300.4310, L500.2500, L501.5425, L300.3900, L100.0100, L501.5200 #### [facility] [address] [place], [address] HCO3 (Bld) [Moles/Vol] 33.3 mmol/L High 22-26 W [facility] Comment on above: Performed By: #### L 300.4310, L500.2500, L501.5425, L300.3900, L100.0100, L501.5200 #### [facility] [address] [place], [address] Mode Not entered [facility] Comment on above: Performed By: #### L 300.4310, L500.2500, L501.5425, L300.3900, L100.0100, L501.5200 #### [facility] [address] [place], [address] O2 Delivery Dev BiPAP Normal [facility] Comment on above: Performed By: #### L 300.4310, L500.2500, L501.5425, L300.3900, L100.0100, L501.5200 #### [facility] [address] [place], [address] pCO2 90.6 mmHg Invalid Interpretation Code 35-45 [facility] Comment on above: Performed By: #### L 300.4310, L500.2500, L501.5425, L300.3900, L100.0100, L501.5200 #### [facility] [address] [place], [address] PEEP 8 Normal [facility] Comment on above: Performed By: #### L 300.4310, L500.2500, L501.5425, L300.3900, L100.0100, L501.5200 #### [facility] [address] [place], [address] pH (Bld) 7.17 [pH] Invalid Interpretation Code 7.35-7.45 [facility] Comment on above: Performed By: #### L 300.4310, L500.2500, L501.5425, L300.3900, L100.0100, L501.5200 #### [facility] [address] [place], [address] PO2 168 mmHG High 75-100 [facility] Comment on above: Performed By: #### L 300.4310, L500.2500, L501.5425, L300.3900, L100.0100, L501.5200 #### [facility] [address] [place], [address] Read Back By Yes Normal [facility] Comment on above: Performed By: #### L 300.4310, L500.2500, L501.5425, L300.3900, L100.0100, L501.5200 #### [facility] [address] [place], [address] perdomo [facility] Comment on above: Performed By: #### L 300.4310, L500.2500, L501.5425, L300.3900, L100.0100, L501.5200 #### [facility] [address] [place], [address] RR 12 [facility] Comment on above: Performed By: #### L 300.4310, L500.2500, L501.5425, L300.3900, L100.0100, L501.5200 #### [facility] [address] [place], [address] SITE R Radial [facility] Comment on above: Performed By: #### L 300.4310, L500.2500, L501.5425, L300.3900, L100.0100, L501.5200 #### [facility] [address] [place], [address] SO2 99 Normal 95-99 [facility] Comment on above: Performed By: #### L 300.4310, L500.2500, L501.5425, L300.3900, L100.0100, L501.5200 #### [facility] [address] [place], [address] Time Given 01:48:12 [facility] Comment on above: Performed By: #### L 300.4310, L500.2500, L501.5425, L300.3900, L100.0100, L501.5200 #### [facility] [address] [place], [address] Vt 450.0 mL [facility] Comment on above: Performed By: #### L 300.4310, L500.2500, L501.5425, L300.3900, L100.0100, L501.5200 #### [facility] [address] [place], [address] CBC W/Diff, Automatedon 12-2 Absolute Lymph 1.59 X10 3/uL Normal 0.83-4.51 [facility] Comment on above: Performed By: #### L 300.4310, L500.2500, L501.5425, L300.3900, L100.0100, L501.5200 #### [facility] [address] [place], [address] Absolute Neut 11.2 X10 3/uL High 2.0-7.7 [facility] Comment on above: Performed By: #### L 300.4310, L500.2500, L501.5425, L300.3900, L100.0100, L501.5200 #### [facility] [address] [place], [address] Basophils/100 WBC (Bld) 0.3 % Normal 0-1 [facility] Comment on above: Performed By: #### L 300.4310, L500.2500, L501.5425, L300.3900, L100.0100, L501.5200 #### [facility] [address] [place], [address] Eosinophils/100 WBC (Bld) 0.1 % Normal 0-5 [facility] Comment on above: Performed By: #### L 300.4310, L500.2500, L501.5425, L300.3900, L100.0100, L501.5200 #### [facility] [address] [place], [address] Erythrocyte distribution width (RBC) [Ratio] 13.4 % Normal 11.6-14.6 [facility] Comment on above: Performed By: #### L 300.4310, L500.2500, L501.5425, L300.3900, L100.0100, L501.5200 #### [facility] [address] [place], [address] Hematocrit (Bld) [Volume fraction] 37.9 % Normal 37-47 [facility] Comment on above: Performed By: #### L 300.4310, L500.2500, L501.5425, L300.3900, L100.0100, L501.5200 #### [facility] [address] [place], [address] Hemoglobin (Bld) [Mass/Vol] 11.7 g/dL Low 12.0-15.0 [facility] Comment on above: Performed By: #### L 300.4310, L500.2500, L501.5425, L300.3900, L100.0100, L501.5200 #### [facility] [address] [place], [address] IG% 0.500 Normal 0.0-0.9 [facility] Comment on above: Result Comment: IG% - Immature Granulocytes (promyelocytes, myelocytes and metamyelocytes) > 1% indicates that a LEFT SHIFT is Present. Performed By: #### L 300.4310, L500.2500, L501.5425, L300.3900, L100.0100, L501.5200 #### [facility] [address] [place], [address] Lymphocytes/100 WBC (Bld) 11.5 % Low 19-41 [facility] Comment on above: Performed By: #### L 300.4310, L500.2500, L501.5425, L300.3900, L100.0100, L501.5200 #### [facility] [address] [place], [address] MCH (RBC) [Entitic mass] 31.3 pg Normal 27.0-32.0 [facility] Comment on above: Performed By: #### L 300.4310, L500.2500, L501.5425, L300.3900, L100.0100, L501.5200 #### [facility] [address] [place], [address] MCHC (RBC) [Mass/Vol] 30.9 g/dL Low 32-36 [facility] Comment on above: Performed By: #### L 300.4310, L500.2500, L501.5425, L300.3900, L100.0100, L501.5200 #### [facility] [address] [place], [address] MCV (RBC) [Entitic vol] 101.3 fL High 81-99 [facility] Comment on above: Performed By: #### L 300.4310, L500.2500, L501.5425, L300.3900, L100.0100, L501.5200 #### [facility] [address] [place], [address] Monocytes/100 WBC (Bld) 6.7 % Normal 0-10 [facility] Comment on above: Performed By: #### L 300.4310, L500.2500, L501.5425, L300.3900, L100.0100, L501.5200 #### [facility] [address] [place], [address] Neutrophils/100 WBC (Bld) 80.9 % High 47-70 [facility] Comment on above: Performed By: #### L 300.4310, L500.2500, L501.5425, L300.3900, L100.0100, L501.5200 #### [facility] [address] [place], [address] Nucleated RBC (Bld) [#/Vol] 0 10*3/uL Normal 0-5 [facility] Comment on above: Performed By: #### L 300.4310, L500.2500, L501.5425, L300.3900, L100.0100, L501.5200 #### [facility] [address] [place], [address] Platelet mean volume (Bld) [Entitic vol] 10.3 fL Normal 6.2-12.0 [facility] Comment on above: Performed By: #### L 300.4310, L500.2500, L501.5425, L300.3900, L100.0100, L501.5200 #### [facility] [address] [place], [address] Platelets (Bld) [#/Vol] 220 10*3/uL Normal 150-450 [facility] Comment on above: Performed By: #### L 300.4310, L500.2500, L501.5425, L300.3900, L100.0100, L501.5200 #### [facility] [address] [place], [address] RBC (Bld) [#/Vol] 3.74 10*6/uL Low 4.2-5.4 [facility] Comment on above: Performed By: #### L 300.4310, L500.2500, L501.5425, L300.3900, L100.0100, L501.5200 #### [facility] [address] [place], [address] RDW SD 49.9 fl High 35.1-43.9 [facility] Comment on above: Performed By: #### L 300.4310, L500.2500, L501.5425, L300.3900, L100.0100, L501.5200 #### [facility] [address] [place], [address] WBC (Bld) [#/Vol] 13.9 10*3/uL High 4.4-11.0 [facility] Comment on above: Performed By: #### L 300.4310, L500.2500, L501.5425, L300.3900, L100.0100, L501.5200 #### [facility] [address] [place], [address] Chest 1 View (Portable)on Chest 1 View (Portable) [facility] [address] [place] [address] Chest 1 View (Portable) MR#: [id number] Acct: [id number] Name: JANENE VASQUEZ Rep #: [id number] : 1955 F 69 From: Lucas Hernandez MD PCP: Dr. Eliazar Barrios DO Status: ADM IN Study: Chest 1 View (Portable) Date of Exam: 09/01/24 Exam# [id number] Ordering Dr: Kameron Brooke DO [id number] STUDY: X-RAY CHEST REASON FOR EXAM: Female, 69 years old. Respiratory Failure TECHNIQUE: Single AP portable view of the chest. COMPARISON: 04/28/2023 FINDINGS: The lungs are clear and expanded. Tiny left pleural effusion. Normal size heart. Normal mediastinum and cash. Normal visualized pulmonary arteries. Normal visualized aortic arch and descending thoracic aorta. Normal visualized thoracic spine. Normal visualized ribs, clavicles, and shoulders. There is no demonstrated abnormality of the visualized soft tissue structures of the upper abdomen. RAD/Chest 1 View (Portable) IMPRESSION: Tiny left pleural effusion. Electronically Signed: Lucas Hernandez MD at 8:46 EST , CC: Dr. Kameron Brooke DO; Dr. Eliazar Barrios DO Gre Tutor: Signed Normal [facility] Consultation - Intensiviston 09-01-2024 Consultation - Harvester Operator [facility] Medical Records Department [address] [place] [address] Consultation - Harvester Operator 09/01/24 0845 MR#: [id number] Acct: [id number] Name: JANENE VASQUEZ Rep #: [id number] : 1955 69 From: Kameron Brooke DO PCP: Dr. Eliazar Barrios DO Status:ADM IN Location: ICU [id number] Assessment Plan Assessment/Plan (1) Acute on chronic respiratory failure with hypoxia and hypercapnia: PLAN: Plan RECOMMENDATIONS: 1. Continue PAP therapy with naps and nightly. 2. Wean supplemental oxygen to maintain saturations at or above 90%. 3. Rate/rhythm control strategy per cardiology. 4. Initiate scheduled bronchodilator therapy along with IV steroids. 5. Encourage incentive spirometer use and mobilize patient as tolerated. 6. Discontinue Precedex. IMPRESSIONS: 1. Acute on chronic combined respiratory failure Unclear precipitating etiology. The patient apparently developed a great deal of anxiety and respiratory distress last night, for which she was ultimately transferred to the ICU and placed on PAP therapy and Precedex. She appears symptomatically improved this morning. The Precedex has been discontinued. The patient has an extensive tobacco abuse history and is on a triple therapy inhaler regimen at her baseline along with 3 L/min of supplemental oxygen. She does continue to smoke cigarettes daily. Her COVID PCR is negative. However, I do agree with checking it with full respiratory viral panel. Up until this morning, the patient was not receiving scheduled bronchodilator therapy, which may have precipitated her symptoms. CTA chest completed on 08/30 ruled out pulmonary embolism. There was no significant cardiopulmonary process noted on repeat chest x-ray from this morning. I would plan to continue scheduled bronchodilator therapy every 4 hours along with IV steroids as ordered. Lastly, the patient would benefit from ongoing PAP therapy on a nightly basis and as needed throughout the day. Nicotine replacement therapy can be offered to the patient while admitted to the hospital. 2. History of coronary artery disease/atrial fibrillation with RVR Continue medical management per cardiology recommendations. 3. History of advanced age COPD/chronic tobacco dependency/hypertensi on Complicates care, management, recovery and prognosis. Continue home medications as indicated. Resume triple therapy inhaler regimen at discharge. Follow-up with primary pulmonary provider after discharge from the hospital. Smoking cessation is advisable. This note was generated with [employer] dictation software. It may contain incorrect words, spelling, and punctuation that were not noted in checking the note before signing. HPI Consult Data Date of Consult: 09/01/24 HPI Narrative Reason for Consultation: Acute on chronic respiratory failure HPI Narrative: The patient is a 69-year-old female, with a history as outlined below, who presented initially to the emergency department on August 30 with heart palpitations. 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 In addition, the patient has an extensive tobacco abuse history and continues to smoke less than 1 pack of cigarettes per day. She is on a triple therapy inhaler regimen at her baseline, but does not utilize any form of nocturnal PAP therapy at home. On presentation to the emergency department, the patient was noted to be in atrial fibrillation with RVR. Ultimately, the patient experienced a precipitous drop in her blood pressure while in the emergency department, for which emergent cardioversion was undertaken. The patient briefly regained normal sinus rhythm, but subsequently relapsed back into atrial fibrillation. Initial laboratory evaluation revealed a normal white blood cell count. Hemoglobin and platelet count were stable. Chemistry profile was notable for a bicarbonate of 34. Creatinine was within normal limits. Lactate was within normal limits. Troponin was elevated at 64. Urine analysis was unremarkable. CTA chest demonstrated no PE or acute cardiopulmonary process. The patient was medically managed with amiodarone and beta-theodore therapy. She was ultimately admitted to the progressive care unit and seen in consultation by cardiology. According to nursing report, the patient developed respiratory distress during the floor covering installer hours of September 01. She was apparently extremely anxious. It does not appear that any form of medical intervention was performed other than initiating her on PAP therapy and a Precedex infusion. Because of this, the patient was transferred to the medical intensive care unit. This morning, upon my evaluation, the patient's Precedex was discontinu (more content not included)... Normal [facility] M100.019on 09-01-2024 M100.019 Negative Normal [facility] Comment on above: Performed By: #### L 300.4310, L500.2500, L501.5425, L300.3900, L100.0100, L501.5200 #### [facility] [address] [place], [address] RESPIRATORY PANEL MOLECULARo n 09-01-2024 RP PANEL ADENOVIRUS Not Detected INFLUENZA A Not Detected INFLUENZA A (SUBTYPE H1) Not Detected INFLUENZA A (SUBTYPE H3) Not Detected INFLUENZA B Not Detected HUMAN METAPHNEUMO Not Detected PARAINFLUENZA 1 Not Detected PARAINFLUENZA 2 Not Detected PARAINFLUENZA 3 Not Detected PARAINFLUENZA 4 Not Detected RHINOVIRUS Not Detected RSV A Not Detected RSV B Not Detected Normal [facility] Comment on above: Performed By: #### L 300.4310, L500.2500, L501.5425, L300.3900, L100.0100, L501.5200 #### [facility] [address] [place], [address] Bilirubin, Directon 08-31-20 Bilirubin.direct [Mass/Vol] 0.09 mg/dL Normal 0.00-0.30 [facility] Comment on above: Performed By: #### L 300.4310, L500.2500, L501.5425, L300.3900, L100.0100, L501.5200 #### [facility] [address] [place], [address] CBC W/Diff, Automatedon 08-07 Absolute Lymph 1.20 X10 3/uL Normal 0.83-4.51 [facility] Comment on above: Performed By: #### L 300.4310, L500.2500, L501.5425, L300.3900, L100.0100, L501.5200 #### [facility] [address] [place], [address] Absolute Neut 6.2 X10 3/uL Normal 2.0-7.7 [facility] Comment on above: Performed By: #### L 300.4310, L500.2500, L501.5425, L300.3900, L100.0100, L501.5200 #### [facility] [address] [place], [address] Basophils/100 WBC (Bld) 0.5 % Normal 0-1 [facility] Comment on above: Performed By: #### L 300.4310, L500.2500, L501.5425, L300.3900, L100.0100, L501.5200 #### [facility] [address] [place], [address] Eosinophils/100 WBC (Bld) 1.0 % Normal 0-5 [facility] Comment on above: Performed By: #### L 300.4310, L500.2500, L501.5425, L300.3900, L100.0100, L501.5200 #### [facility] [address] [place], [address] Erythrocyte distribution width (RBC) [Ratio] 13.4 % Normal 11.6-14.6 [facility] Comment on above: Performed By: #### L 300.4310, L500.2500, L501.5425, L300.3900, L100.0100, L501.5200 #### [facility] [address] [place], [address] Hematocrit (Bld) [Volume fraction] 34.3 % Low 37-47 [facility] Comment on above: Performed By: #### L 300.4310, L500.2500, L501.5425, L300.3900, L100.0100, L501.5200 #### [facility] [address] [place], [address] Hemoglobin (Bld) [Mass/Vol] 10.5 g/dL Low 12.0-15.0 [facility] Comment on above: Performed By: #### L 300.4310, L500.2500, L501.5425, L300.3900, L100.0100, L501.5200 #### [facility] [address] [place], [address] IG% 0.400 Normal 0.0-0.9 [facility] Comment on above: Result Comment: IG% - Immature Granulocytes (promyelocytes, myelocytes and metamyelocytes) > 1% indicates that a LEFT SHIFT is Present. Performed By: #### L 300.4310, L500.2500, L501.5425, L300.3900, L100.0100, L501.5200 #### [facility] [address] [place], [address] Lymphocytes/100 WBC (Bld) 14.7 % Low 19-41 [facility] Comment on above: Performed By: #### L 300.4310, L500.2500, L501.5425, L300.3900, L100.0100, L501.5200 #### [facility] [address] [place], [address] MCH (RBC) [Entitic mass] 30.8 pg Normal 27.0-32.0 [facility] Comment on above: Performed By: #### L 300.4310, L500.2500, L501.5425, L300.3900, L100.0100, L501.5200 #### [facility] [address] [facility] [place], [address] MCHC (RBC) [Mass/Vol] 30.6 g/dL Low 32-36 [facility] Comment on above: Performed By: #### L 300.4310, L500.2500, L501.5425, L300.3900, L100.0100, L501.5200 #### [facility] [address] [place], [address] MCV (RBC) [Entitic vol] 100.6 fL High 81-99 [facility] Comment on above: Performed By: #### L 300.4310, L500.2500, L501.5425, L300.3900, L100.0100, L501.5200 #### [facility] [address] [place], [address] Monocytes/100 WBC (Bld) 8.0 % Normal 0-10 [facility] Comment on above: Performed By: #### L 300.4310, L500.2500, L501.5425, L300.3900, L100.0100, L501.5200 #### [facility] [address] [place], [address] Neutrophils/100 WBC (Bld) 75.4 % High 47-70 [facility] Comment on above: Performed By: #### L 300.4310, L500.2500, L501.5425, L300.3900, L100.0100, L501.5200 #### [facility] [address] [place], [address] Nucleated RBC (Bld) [#/Vol] 0 10*3/uL Normal 0-5 [facility] Comment on above: Performed By: #### L 300.4310, L500.2500, L501.5425, L300.3900, L100.0100, L501.5200 #### [facility] [address] [place], [address] Platelet mean volume (Bld) [Entitic vol] 10.4 fL Normal 6.2-12.0 [facility] Comment on above: Performed By: #### L 300.4310, L500.2500, L501.5425, L300.3900, L100.0100, L501.5200 #### [facility] [address] [place], [address] Platelets (Bld) [#/Vol] 192 10*3/uL Normal 150-450 [facility] Comment on above: Performed By: #### L 300.4310, L500.2500, L501.5425, L300.3900, L100.0100, L501.5200 #### [facility] [address] [place], [address] RBC (Bld) [#/Vol] 3.41 10*6/uL Low 4.2-5.4 [facility] Comment on above: Performed By: #### L 300.4310, L500.2500, L501.5425, L300.3900, L100.0100, L501.5200 #### [facility] [address] [place], [address] RDW SD 49.6 fl High 35.1-43.9 [facility] Comment on above: Performed By: #### L 300.4310, L500.2500, L501.5425, L300.3900, L100.0100, L501.5200 #### [facility] [address] [place], [address] WBC (Bld) [#/Vol] 8.2 10*3/uL Normal 4.4-11.0 [facility] Comment on above: Performed By: #### L 300.4310, L500.2500, L501.5425, L300.3900, L100.0100, L501.5200 #### [facility] [address] [place], [address] Comprehensive Metabolic Prof [facility] 08-31-2024 Albumin [Mass/Vol] 2.8 g/dL Low 3.2-5.0 [facility] Comment on above: Performed By: #### L 300.4310, L500.2500, L501.5425, L300.3900, L100.0100, L501.5200 #### [facility] [address] [place], [address] Albumin/Globulin [Mass ratio] 1.0 {ratio} Normal 0.9-2.4 [facility] Comment on above: Performed By: #### L 300.4310, L500.2500, L501.5425, L300.3900, L100.0100, L501.5200 #### [facility] [address] [place], [address] ALK P 55 U/L Normal 45-117 [facility] Comment on above: Performed By: #### L 300.4310, L500.2500, L501.5425, L300.3900, L100.0100, L501.5200 #### [facility] [address] [place], [address] ALT [Catalytic activity/Vol] 18 U/L Normal 13-56 [facility] Comment on above: Performed By: #### L 300.4310, L500.2500, L501.5425, L300.3900, L100.0100, L501.5200 #### [facility] [address] [place], [address] AST [Catalytic activity/Vol] 13 U/L Low 15-37 [facility] Comment on above: Performed By: #### L 300.4310, L500.2500, L501.5425, L300.3900, L100.0100, L501.5200 #### [facility] [address] [place], [address] Bilirubin [Mass/Vol] 0.20 mg/dL Normal 0.20-1.00 [facility] Comment on above: Result Comment: For patients on eltrombopag therapy, use of Dimension [place] TBIL is not recommended. Performed By: #### L 300.4310, L500.2500, L501.5425, L300.3900, L100.0100, L501.5200 #### [facility] [address] [place], [address] BUN/CRE 19.1 RATIO Normal 10-20 [facility] Comment on above: Performed By: #### L 300.4310, L500.2500, L501.5425, L300.3900, L100.0100, L501.5200 #### [facility] [address] [place], [address] CA,Total 7.9 mg/dL Low 8.5-10.1 [facility] Comment on above: Performed By: #### L 300.4310, L500.2500, L501.5425, L300.3900, L100.0100, L501.5200 #### [facility] [address] [place], [address] Chloride [Moles/Vol] 107 mmol/L Normal 98-107 [facility] Comment on above: Performed By: #### L 300.4310, L500.2500, L501.5425, L300.3900, L100.0100, L501.5200 #### [facility] [address] [place], [address] CO2 [Moles/Vol] 34.0 mmol/L High 21.0-32.0 [facility] Comment on above: Performed By: #### L 300.4310, L500.2500, L501.5425, L300.3900, L100.0100, L501.5200 #### [facility] [address] [place], [address] Creatinine [Mass/Vol] 0.78 mg/dL Normal 0.55-1.02 [facility] Comment on above: Result Comment: The validity of the calculated GFR GFRAA in patients over 70 years has not been determined. Clinical correlation is essential. Performed By: #### L 300.4310, L500.2500, L501.5425, L300.3900, L100.0100, L501.5200 #### [facility] [address] [place], [address] ECRCL 63.72 ml/min Normal [facility] Comment on above: Performed By: #### L 300.4310, L500.2500, L501.5425, L300.3900, L100.0100, L501.5200 #### [facility] [address] [place], [address] EST GFR - AA 93 mL/min Normal >60 [facility] Comment on above: Result Comment: Afri can [place] GFR Calc Performed By: #### L 300.4310, L500.2500, L501.5425, L300.3900, L100.0100, L501.5200 #### [facility] [address] [place], [address] GAP 1 Low 5-15 [facility] Comment on above: Performed By: #### L 300.4310, L500.2500, L501.5425, L300.3900, L100.0100, L501.5200 #### [facility] [address] [place], [address] GFR/1.73 sq M.predicted among non-blacks MDRD (S/P/Bld) [Vol rate/Area] 77 mL/min/{1.73_m2} Normal >60 [facility] Comment on above: Result Comment: Non- GFR Calc Performed By: #### L 300.4310, L500.2500, L501.5425, L300.3900, L100.0100, L501.5200 #### [facility] [address] [place], [address] Globulin (S) [Mass/Vol] 2.8 g/dL Normal 2.2-4.2 [facility] Comment on above: Performed By: #### L 300.4310, L500.2500, L501.5425, L300.3900, L100.0100, L501.5200 #### [facility] [address] [place], [address] Glucose [Mass/Vol] 128 mg/dL High 74-106 [facility] Comment on above: Result Comment: Fast ing Glucose result greater than or equal to 126 mg/dL suggests DIABETES MELLITUS per A.D.A. criteria. Performed By: #### L 300.4310, L500.2500, L501.5425, L300.3900, L100.0100, L501.5200 #### [facility] [address] [place], [address] Potassium [Moles/Vol] 4.6 mmol/L Normal 3.5-5.1 [facility] Comment on above: Performed By: #### L 300.4310, L500.2500, L501.5425, L300.3900, L100.0100, L501.5200 #### [facility] [address] [place], [address] Sodium [Moles/Vol] 142 mmol/L Normal 136-145 [facility] Comment on above: Performed By: #### L 300.4310, L500.2500, L501.5425, L300.3900, L100.0100, L501.5200 #### [facility] Laboratory [address] [place], [address] T PROT 5.6 g/dL Low 6.4-8.2 [facility] Comment on above: Performed By: #### L 300.4310, L500.2500, L501.5425, L300.3900, L100.0100, L501.5200 #### [facility] Laboratory [address] [place], [address] Urea nitrogen [Mass/Vol] 15 mg/dL Normal 7-18 [facility] Comment on above: Performed By: #### L 300.4310, L500.2500, L501.5425, L300.3900, L100.0100, L501.5200 #### [facility] Laboratory [address] [place], [address] Consultation - Cardiologyon 08-31-2024 Consultation - Cardiology [facility] Medical Records Department [address] [place] [address] Consultation - Cardiology 08/31/24 0839 MR#: [id number] Acct: [id number] Name: JANENE VASQUEZ Rep #: [id number] : 1955 69 From: Benjie Mortensen MD PCP: Dr. Eliazar Barrios, DO Status:ADM IN Location: [place] [address] Assessment Plan Assessment/Plan (1) Atrial fibrillation with rapid ventricular response: PLAN: She does present with atrial fibrillation with a rapid ventricular response rate. She was noted to have ST depressions in the lateral leads and was hypotensive. I suspect some of this was due to dehydration. She underwent DC cardioversion which was unsuccessful. She was started on intravenous amiodarone and has converted back to sinus rhythm. * My recommendation will be as follows: Continue Eliquis * Metoprolol 50 mg twice a day * Amiodarone 200 mg a day * Echocardiogram to assess ventricular function * DC intravenous amiodarone (2) Atherosclerotic heart disease of [place] coronary artery with unstable angina pectoris: PLAN: Patient has known atherosclerotic cardiovascular disease by cardiac catheterization a year ago which demonstrated moderate disease in the left anterior descending artery obtuse marginal branch as well as the septal log driver. Medical therapy was recommended. At this time therefore my recommendation will be to continue the current medical therapy. I do not think there is a reason for any invasive therapy or stress testing at this time. If patient remains in sinus rhythm over the next 24 hours the patient can be seen as an outpatient. (3) Hypertension: PLAN: She does have a history of hypertension. Her blood pressure is under good control. Indeed she is somewhat hypotensive. I would recommend that we discontinue the Entresto and put her on losartan 50 mg a day. An echocardiogram is pending at this time. HPI Consult Data Date of Consult: 08/31/24 HPI Narrative HPI Narrative: JANENE VASQUEZ, is a 69 F who presents to the emergency room with palpitations was noted to be in atrial fibrillation with a rapid ventricular response rate and ST depressions noted in the lateral leads. She has a known history of atrial fibrillation as well as coronary disease status post cardiac catheterization in April 2023 when she presented and was noted to have ST depression significant from V3-V6 and had presented in A-fib with RVR. 04/30/23 cardiac catheterization with heavily calcified coronary arteries, 60% mid LAD, 80% ostial major septal, 50% proximal OM1, 60% OM 2, 40 to 50% RCA, RPDA with strong recommendation for medical therapy and risk factor modification with medication regimen changes as noted above. She presents this time with the same and underwent 2 episodes of DC cardioversion and successfully became hypotensive cardiology was called we started her on intravenous amiodarone and she has converted back to sinus rhythm. [facility] Medical History (Updated 08/31/24 @ 08:[address] Benjie Mortensen MD) Hypertension Atherosclerotic heart disease of [place] coronary artery with unstable angina pectoris Paroxysmal atrial fibrillation Nicotine dependence Severe chronic obstructive pulmonary disease Osteoarthritis Degenerative disc disease Tobacco abuse Chronic anticoagulation Afib History of emphysema Acute bronchitis, unspecified Home Medications ???Medication ???Instructions ???Recorded ???Last Taken ???Type albuterol sulfate 90 mcg/actuation 1 puff inhalation Q4H PRN PRN Sob 04/21/16 Unknown History aerosol inhaler (ProAir HFA) /Or Wheezing ferrous sulfate 325 mg (65 mg 325 mg PO DAILY anemia 01/18/23 Unknown History iron) tablet sacubitril 24 mg-valsartan 26 mg 1 tab PO BID heart 01/18/23 Unknown History tablet (Entresto) cholecalciferol (vitamin D3) 50 50 mcg PO DAILY supplement 04/29/23 Unknown History mcg (2,000 unit) capsule aspirin 81 mg tablet,delayed 81 mg PO DAILY@0800 30 days #30 04/30/23 Unknown Rx release tabs atorvastatin 20 mg tablet 20 mg PO QHS 30 days #30 tabs 04/30/23 Unknown Rx metoprolol succinate 50 mg 50 mg PO BID 30 days #60 tabs 04/30/23 Unknown Rx tablet,extended release 24 hr apixaban 5 mg tablet (Eliquis) 5 mg PO BID 08/30/24 Unknown History fluticasone fur. 100 mcg-umeclid 1 ea inhalation DAILY wheezing 08/30/24 Unknown History 62.5 mcg-vilant 25 mcg inhalat.powder (Trelegy Ellipta) torsemide 20 mg tablet 20 mg PO DAILY 08/30/24 Unknown History Allergy/AdvReac Type Severity Reaction Status Date / Time No Known Allergies Allergy Verified 08/30/24 14:22 Family History Other CAD (coronary artery disease) Heart disease Hypertension Surgical History H/O adenoidectomy Hx of tonsillectomy History of appende (more content not included)... Normal [facility] Echo Completeon 08-31-2024 Echo Complete [facility] Cardiovascular Services [address] [place] [address] Echo Complete 09/01/24 0837 MR#: [id number] Acct: [id number] Name: JANENE VASQUEZ Rep #: [id number] : 1955 69 From: Benjie Mortensen MD Attending Dr: Dr. Benji Knowles MD Status: ADM IN Ordering Dr: Benji Knowles MD Date: 08/31/24 Location: ICU Sex: F C Admitted: 08/30/24 Reason For Study: ATRIAL FIBRILLATION Procedure This was a 2D Doppler, Color Flow transthoracic echocardiogram. The patient was scanned supine. Exam performed portable in ICU/CCU. Left Ventricle Normal LV size. Left ventricular systolic function is normal. The left ventricular ejection fraction is 65 %. No regional wall motion abnormalities noted. Right Ventricle Normal RV size. Normal systolic function. Atria Normal left atrium. Normal right atrium. Mitral Valve Normal mitral valve. Mild-Moderate (1-2+) mitral valve insufficiency. Tricuspid Valve Normal tricuspid valve. Aortic Valve Trisinus/trileaflet aortic valve. Pulmonic Valve Normal pulmonic valve. Great Vessels Normal aortic root. The pulmonary artery is normal size. The inferior vena cava is dilated. and partially collapses. Pericardium/Pleural No pericardial effusion. MMode/2D Measurements Calculations LVIDd: 4.5 cm IVSd: 1.1 cm LVOT diam: 2.0 cm LVIDs: 2.3 cm LVPWd: 1.1 cm LVOT area: 3.0 cm2 RVDd: 3.4 cm FS: 49.4 % asc Aorta Diam: 3.6 cm LAV(MOD-bp): 64.2 ml LVAd ap4: 22.0 cm2 LAV(MOD-bp) Indexed: 35.7 ml/m2 LVLd ap4: 7.4 cm LAV(MOD-sp2): 85.3 ml EDV(MOD-sp4): 53.4 ml LAV(MOD-sp4): 40.2 ml EDV(sp4-el): 55.0 ml LVAs ap4: 10.2 cm2 LVLs ap4: 5.7 cm ESV(MOD-sp4): 17.2 ml ESV(sp4-el): 15.6 ml EF(MOD-sp4): 67.9 % EF(sp4-el): 71.6 % LVAd ap2: 24.2 cm2 SV(MOD-sp4): 36.3 ml SV(MOD-sp2): 39.1 ml LVLd ap2: 7.5 cm SI(MOD-sp4): 20.2 ml/m2 SI(MOD-sp2): 21.7 ml/m2 EDV(MOD-sp2): 63.7 ml EDV(sp2-el): 65.7 ml LVAs ap2: 13.4 cm2 LVLs ap2: 6.5 cm ESV(MOD-sp2): 24.6 ml ESV(sp2-el): 23.1 ml EF(MOD-sp2): 61.4 % SV(sp4-el): 39.4 ml Ao sinus diam: 3.[address] Junction: 2.5 cm LA dimension(2D): 3.6 cm LA A4 area: 15.3 cm2 RA A4 area: 17.3 cm2 TAPSE: 2.3 cm Time Measurements MV dec time: 0.20 sec Doppler Measurements Calculations MV E max stephanie: 101.1 cm/sec Lat Peak E' Stephanie: 5.5 cm/sec Med Peak E' Stephanie: 6.4 cm/sec MV A max stephanie: 59.1 cm/sec E/E' lat: 18.3 E/E' med: 15.8 MV E/A: 1.7 MV dec slope: 497.9 cm/sec2 Ao V2 max: 143.9 cm/sec LV V1 max: 103.6 cm/sec Ao max P.3 mmHg LV V1 max P.3 mmHg Ao V2 mean: 103.7 cm/sec LV V1 mean P.3 mmHg Ao mean P.7 mmHg LV V1 mean: 70.8 cm/sec Ao V2 VTI: 33.7 cm LV V1 VTI: 26.3 cm AV (velocity ratio): 0.78 WILDER(I,D): 2.3 cm2 WILDER(V,D): 2.2 cm2 SV(LVOT): 79.2 ml PA V2 max: 81.9 cm/sec ECHO/Echo Complete Interpretation Summary Normal LV size. Left ventricular systolic function is normal. The left ventricular ejection fraction is 65 %. Mild-Moderate (1-2+) mitral valve insufficiency. Ordering Physician: Benji Knowles Performed By: Mariam Muniz RDCS 09/01/24 1123 Date Benjie Mortensen MD CC: Dr. Eliazar Barrios DO; Dr. Benji Knowles MD Date Dictated: 09/01/24 0837 Date Transcribed: 09/01/24 1123 Gre Tutor: Signed Normal [facility] Magnesiumon 08-31-2024 Magnesium [Mass/Vol] 1.8 mg/dL Normal 1.6-2.6 [facility] Comment on above: Performed By: #### L 300.4310, L500.2500, L501.5425, L300.3900, L100.0100, L501.5200 #### [facility] Laboratory [address] [place], [address] Phosphoruson 08-31-2024 Phosphate [Mass/Vol] 3.5 mg/dL Normal 2.5-4.9 [facility] Comment on above: Performed By: #### L 300.4310, L500.2500, L501.5425, L300.3900, L100.0100, L501.5200 #### [facility] Laboratory [address] [place], [address] Prothrombin Time w/INRon INR Coag (PPP) [Relative time] 1.3 {INR} Normal [facility] Comment on above: Performed By: #### L 300.4310, L500.2500, L501.5425, L300.3900, L100.0100, L501.5200 #### [facility] Laboratory [address] [place], [address] PT Coag (PPP) [Time] 16.4 s High 11.7-14.9 [facility] Comment on above: Performed By: #### L 300.4310, L500.2500, L501.5425, L300.3900, L100.0100, L501.5200 #### [facility] Laboratory [address] [place], [address] Thyroid Stim Hormone (TSH)on 08-31-2024 TSH 0.908 uIU/mL Normal 0.358-3.740 [facility] Comment on above: Performed By: #### L 300.4310, L500.2500, L501.5434, L300.3900, L100.0100, L501.5200 #### [facility] Laboratory [address] [place], [address] 12 Lead EKGon 08-30-2024 12 Lead EKG [facility] Cardiovascular Services [address] [place] [address] 12 Lead EKG 08/30/24 1619 MR#: [id number] Acct: [id number] Name: JANENE VASQUEZ Mikey Rep #: [id number] : 1955 69 From: Benjie Mortensen MD Attending Dr: Dr. Benji Knowles MD Status: ADM IN Ordering Dr: Antoine Jones DO Date: 08/30/24 Location: ICU Sex: F C Admitted: 08/30/24 Test Reason : REPEAT Blood Pressure : */* mmHG Vent. Rate : 88 BPM Atrial Rate : * BPM P-R Int : * ms QRS Dur : 96 ms QT Int : 378 ms P-R-T Axes : * -15 46 degrees QTcB Int : 457 ms Atrial fibrillation Abnormal ECG Confirmed by BENJIE MORTENSEN MD ([id number]), movie editor DANA MOSS ([id number]) on 09/01/2024 9:36:30 AM Referred By: Confirmed By: BENJIE MORTENSEN MD 09/01/24 0936 Date Benjie Mortensen MD CC: Dr. Eliazar Barrios DO; Dr. Benji Knowles MD; Dr. Antoine Jones DO Signed Normal [facility] 12 Lead EKG [facility] Cardi[facility] Services [address] [place] [address] 12 Lead EKG 08/30/24 1422 MR#: [id number] Acct: [id number] Name: JANENE VASQUEZ Rep #: [id number] : 1955 69 From: Benjie Mortensen MD Attending Dr: Dr. Benji Knowles MD Status: ADM IN Ordering Dr: Antoine Jones DO Date: 08/30/24 Location: ICU Sex: F C Admitted: 08/30/24 Test Reason : BACK PAIN Blood Pressure : */* mmHG Vent. Rate : 133 BPM Atrial Rate : * BPM P-R Int : * ms QRS Dur : 84 ms QT Int : 330 ms P-R-T Axes : * -27 153 degrees QTcB Int : 491 ms Atrial fibrillation with rapid ventricular response Minimal voltage criteria for LVH, may be normal variant ( [place] product ) Marked ST abnormality, possible inferior subendocardial injury Marked ST abnormality, possible anterolateral subendocardial injury Abnormal ECG Confirmed by BENJIE MORTENSEN MD ([id number]), movie editor DANA MOSS ([id number]) on 09/01/2024 9:36:16 AM Referred By: MAYO Confirmed By: BENJIE MORTENSEN MD 09/01/24 0936 Date Benjie Mortensen MD CC: Dr. Eliazar Barrios DO; Dr. Benji Knowles MD; Dr. Antoine Jones DO Signed Normal [facility] Basic Metabolic Profile (BMP )on 08-30-2024 BUN/CRE 18.5 RATIO Normal 10-20 [facility] Comment on above: Order Comment: 1 Y Performed By: #### L 300.4310, L500.2500, L501.5425, L300.3900, L100.0100, L501.5200 #### [facility] Laboratory [address] [place], [address] CA,Total 9.2 mg/dL Normal 8.5-10.1 [facility] Comment on above: Order Comment: 1 Y Performed By: #### L 300.4310, L500.2500, L501.5425, L300.3900, L100.0100, L501.5200 #### [facility] Laboratory [address] [place], [address] Chloride [Moles/Vol] 101 mmol/L Normal 98-107 [facility] Comment on above: Order Comment: 1 Y Performed By: #### L 300.4310, L500.2500, L501.5425, L300.3900, L100.0100, L501.5200 #### [facility] Laboratory [address] [place], [address] CO2 [Moles/Vol] 34.0 mmol/L High 21.0-32.0 [facility] Comment on above: Order Comment: 1 Y Performed By: #### L 300.4310, L500.2500, L501.5425, L300.3900, L100.0100, L501.5200 #### [facility] Laboratory [address] [place], [address] Creatinine [Mass/Vol] 0.87 mg/dL Normal 0.55-1.02 [facility] Comment on above: Order Comment: 1 Y Result Comment: The validity of the calculated GFR GFRAA in patients over 70 years has not been determined. Clinical correlation is essential. Performed By: #### L 300.4310, L500.2500, L501.5425, L300.3900, L100.0100, L501.5200 #### [facility] Laboratory [address] [place], [address] ECRCL 58.24 ml/min Normal [facility] Comment on above: Order Comment: 1 Y Performed By: #### L 300.4310, L500.2500, L501.5425, L300.3900, L100.0100, L501.5200 #### [facility] Laboratory [address] [place], [address] EST GFR - AA 83 mL/min Normal >60 [facility] Comment on above: Order Comment: 1 Y Result Comment: Afri can [place] GFR Calc Performed By: #### L 300.4310, L500.2500, L501.5425, L300.3900, L100.0100, L501.5200 #### [facility] Laboratory [address] [place], [address] GAP 5 Normal 5-15 [facility] Comment on above: Order Comment: 1 Y Performed By: #### L 300.4310, L500.2500, L501.5425, L300.3900, L100.0100, L501.5200 #### [facility] Laboratory [address] [place], [address] GFR/1.73 sq M.predicted among non-blacks MDRD (S/P/Bld) [Vol rate/Area] 69 mL/min/{1.73_m2} Normal >60 [facility] Comment on above: Order Comment: 1 Y Result Comment: Non- GFR Calc Performed By: #### L 300.4310, L500.2500, L501.5425, L300.3900, L100.0100, L501.5200 #### [facility] Laboratory [address] [place], [address] Glucose [Mass/Vol] 182 mg/dL High 74-106 [facility] Comment on above: Order Comment: 1 Y Result Comment: Fast ing Glucose result greater than or equal to 126 mg/dL suggests DIABETES MELLITUS per A.D.A. criteria. Performed By: #### L 300.4310, L500.2500, L501.5425, L300.3900, L100.0100, L501.5200 #### [facility] [address] [place], [address] Potassium [Moles/Vol] 3.5 mmol/L Normal 3.5-5.1 [facility] Comment on above: Order Comment: 1 Y Performed By: #### L 300.4310, L500.2500, L501.5425, L300.3900, L100.0100, L501.5200 #### [facility] Laboratory [address] [place], [address] Sodium [Moles/Vol] 140 mmol/L Normal 136-145 [facility] Comment on above: Order Comment: 1 Y Performed By: #### L 300.4310, L500.2500, L501.5425, L300.3900, L100.0100, L501.5200 #### [facility] Laboratory [address] [place], [address] Urea nitrogen [Mass/Vol] 16 mg/dL Normal 7-18 [facility] Comment on above: Order Comment: 1 Y Performed By: #### L 300.4310, L500.2500, L501.5425, L300.3900, L100.0100, L501.5200 #### [facility] Laboratory [address] [place], [address] CBC W/Diff, Automatedon 12-2 -2023 Absolute Lymph 2.22 X10 3/uL Normal 0.83-4.51 [facility] Comment on above: Performed By: #### L 300.4310, L500.2500, L501.5425, L300.3900, L100.0100, L501.5200 #### [facility] Laboratory [address] [place], [address] Absolute Neut 4.9 X10 3/uL Normal 2.0-7.7 [facility] Comment on above: Performed By: #### L 300.4310, L500.2500, L501.5425, L300.3900, L100.0100, L501.5200 #### [facility] Laboratory [address] [place], [address] Basophils/100 WBC (Bld) 0.8 % Normal 0-1 [facility] Comment on above: Performed By: #### L 300.4310, L500.2500, L501.5425, L300.3900, L100.0100, L501.5200 #### [facility] Laboratory [address] [place], [address] Eosinophils/100 WBC (Bld) 3.1 % Normal 0-5 [facility] Comment on above: Performed By: #### L 300.4310, L500.2500, L501.5425, L300.3900, L100.0100, L501.5200 #### [facility] Laboratory [address] [place], [address] Erythrocyte distribution width (RBC) [Ratio] 13.0 % Normal 11.6-14.6 [facility] Comment on above: Performed By: #### L 300.4310, L500.2500, L501.5425, L300.3900, L100.0100, L501.5200 #### [facility] Laboratory [address] [place], [address] Hematocrit (Bld) [Volume fraction] 39.5 % Normal 37-47 [facility] Comment on above: Performed By: #### L 300.4310, L500.2500, L501.5425, L300.3900, L100.0100, L501.5200 #### [facility] Laboratory [address] [place], [address] Hemoglobin (Bld) [Mass/Vol] 12.5 g/dL Normal 12.0-15.0 [facility] Comment on above: Performed By: #### L 300.4310, L500.2500, L501.5425, L300.3900, L100.0100, L501.5200 #### [facility] Laboratory [address] [place], [address] IG% 0.100 Normal 0.0-0.9 [facility] Comment on above: Result Comment: IG% - Immature Granulocytes (promyelocytes, myelocytes and metamyelocytes) > 1% indicates that a LEFT SHIFT is Present. Performed By: #### L 300.4310, L500.2500, L501.5425, L300.3900, L100.0100, L501.5200 #### [facility] Laboratory [address] [place], [address] Lymphocytes/100 WBC (Bld) 27.8 % Normal 19-41 [facility] Comment on above: Performed By: #### L 300.4310, L500.2500, L501.5425, L300.3900, L100.0100, L501.5200 #### [facility] Laboratory [address] [place], [address] MCH (RBC) [Entitic mass] 30.6 pg Normal 27.0-32.0 [facility] Comment on above: Performed By: #### L 300.4310, L500.2500, L501.5425, L300.3900, L100.0100, L501.5200 #### [facility] Laboratory [address] [place], [address] MCHC (RBC) [Mass/Vol] 31.6 g/dL Low 32-36 [facility] Comment on above: Performed By: #### L 300.4310, L500.2500, L501.5425, L300.3900, L100.0100, L501.5200 #### [facility] Laboratory [address] [place], [address] MCV (RBC) [Entitic vol] 96.8 fL Normal 81-99 [facility] Comment on above: Performed By: #### L 300.4310, L500.2500, L501.5425, L300.3900, L100.0100, L501.5200 #### [facility] Laboratory [address] [place], [address] Monocytes/100 WBC (Bld) 7.5 % Normal 0-10 [facility] Comment on above: Performed By: #### L 300.4310, L500.2500, L501.5425, L300.3900, L100.0100, L501.5200 #### [facility] Laboratory [address] [place], [address] Neutrophils/100 WBC (Bld) 60.7 % Normal 47-70 [facility] Comment on above: Performed By: #### L 300.4310, L500.2500, L501.5425, L300.3900, L100.0100, L501.5200 #### [facility] Laboratory [address] [place], [address] Nucleated RBC (Bld) [#/Vol] 0 10*3/uL Normal 0-5 [facility] Comment on above: Performed By: #### L 300.4310, L500.2500, L501.5425, L300.3900, L100.0100, L501.5200 #### [facility] [address] [place], [address] Platelet mean volume (Bld) [Entitic vol] 10.9 fL Normal 6.2-12.0 [facility] Comment on above: Performed By: #### L 300.4310, L500.2500, L501.5425, L300.3900, L100.0100, L501.5200 #### [facility] Laboratory [address] [place], [address] Platelets (Bld) [#/Vol] 235 10*3/uL Normal 150-450 [facility] Comment on above: Performed By: #### L 300.4310, L500.2500, L501.5425, L300.3900, L100.0100, L501.5200 #### [facility] [address] [place], [address] RBC (Bld) [#/Vol] 4.08 10*6/uL Low 4.2-5.4 [facility] Comment on above: Performed By: #### L 300.4310, L500.2500, L501.5425, L300.3900, L100.0100, L501.5200 #### [facility] [address] [place], [address] RDW SD 46.1 fl High 35.1-43.9 [facility] Comment on above: Performed By: #### L 300.4310, L500.2500, L501.5425, L300.3900, L100.0100, L501.5200 #### [facility] [address] [place], [address] WBC (Bld) [#/Vol] 8.0 10*3/uL Normal 4.4-11.0 [facility] Comment on above: Performed By: #### L 300.4310, L500.2500, L501.5425, L300.3900, L100.0100, L501.5200 #### [facility] [address] [place], [address] CTA Chest W/WO Contraston CTA Chest W/WO Contrast [facility] Imaging Services [address] [place] [address] CTA Chest W/WO Contrast MR#: [id number] Acct: [id number] Name: JANENE VASQUEZ Rep #: [id number] : 1955 F 69 From: Jarord Traylor MD PCP: Dr. Eliazar Barrios, Status: REG ER Study: CTA Chest W/WO Contrast Date of Exam: 08/30/24 Exam# [id number] Ordering Dr: Antoine Jones DO [id number] EXAM: CT ANGIOGRAPHY CHEST WITHOUT AND WITH INTRAVENOUS CONTRAST CLINICAL INDICATION: back pain -- r/o dissection TECHNIQUE: Helically acquired angiography images were obtained of the chest without and with intravenous contrast. This CT exam was performed using one or more of the following dose reduction techniques: automated exposure control, adjustment of the mA and/or kV according to patient size, and/or use of iterative reconstruction technique. MIP reconstructed images were created and reviewed. CONTRAST: IV 100mL [id number] RADIATION DOSE: CTDIvol = 14.13 mGy, DLP = 546.49 mGy-cm COMPARISON: No relevant prior studies available. FINDINGS: PULMONARY ARTERIES: Unremarkable. Normal in caliber. No evidence of pulmonary embolism. AORTA: Unremarkable. Normal in caliber. No evidence of dissection. GREAT VESSELS OF AORTIC ARCH: Unremarkable. Normal in caliber. No evidence of dissection. LUNGS AND PLEURAL SPACES: Thin-walled cyst in the right lung base. Breathing motion artifacts in the lung bases. No interstitial infiltrates, consolidation or edema. No mass. No pleural effusion or thickening. No pneumothorax. HEART: Prominent calcified plaques in the proximal LAD branch and minimal calcified plaques in the left circumflex branch. Minimal calcified plaques in the right coronary artery. Normal cardiac size. Normal pericardium. Heart size is normal. MEDIASTINUM: Unremarkable. No mediastinal or hilar adenopathy. Esophagus is unremarkable. No hiatal hernia. THYROID: Unremarkable. No thyroid lesions. BONES/JOINTS: Moderate old anterior wedge compression fracture of the upper T7 vertebral body. Mild degenerative anterolisthesis of C7 on T1 and T2 on T3. Pronounced disc space height narrowing with endplate sclerosis and degenerative vacuum phenomenon at L1-L2 and L2-L3 disc space levels. No suspicious lytic or blastic abnormality. SOFT TISSUES: Bilateral breast implants in place. KIDNEYS AND URETERS: Long segment severe stenosis of the left renal artery with minimal arterial flow to the atrophic left kidney. No contrast enhancement or nephrogram in the left atrophic kidney. Normal right kidney with normal right nephrogram. No stones or hydronephrosis in both kidneys. Celiac artery: High-grade stenosis of the noncalcified plaques or noncalcified plaques with poststenotic dilatation. SMA: No significant stenosis. Right renal artery: No significant stenosis. Left renal artery: Long segment severe stenosis CT/CTA Chest W/WO Contrast IMPRESSION: 1. No CTA evidence of pleural with thromboemboli, thoracic aortic aneurysm or dissection. 2. No CT evidence of pneumonia. 3. Moderate old anterior wedge compression fracture of the upper T7 vertebral body and mild degenerative anterolisthesis of C7 on T1 and T2 on T3. 4. Long segment severe stenosis of the left renal artery with minimal arterial flow to the left kidney and no contrast enhancement or nephrogram of the left atrophic kidney. 5. Normal right kidney with normal right nephrogram. 6. Prominent calcified plaques in the proximal LAD branch and fewer calcified plaques in the circumflex branch and right coronary artery. 7. 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 Electronically Signed: Jarrod Traylor MD at 15:53 EST , CC: Dr. Eliazar Barrios DO; Dr. Antoine Jones DO Gre Tutor: Signed Normal [facility] Emergency Department Summary on 08-30-2024 Emergency Department Summary [facility] Medical Records Department [address] [place] [address] Emergency Department Summary 08/30/24 MR#: [id number] Acct: [id number] Name: JANENE VASQUEZ Rep #: [id number] : 1955 69 From: Antoine Montanez PCP: Dr. Eliazar Barrios DO Status:ADM IN Location: ICU [id number] HPI History of Present Illness Chief Complaint: Chest Pain Informant: patient, spouse/S.O. and EMS Narrative Narrative: Brought by EMS spouse is present sudden upper back pain an hour prior to arrival. Patient states mainly in the back possibly mild in the front initially however later states no chest pains. History of COPD on chronic 3 L oxygen. No recent illness no cough. History of A-fib on Eliquis last dose this morning. So metoprolol 50 mg once a day. Took it this morning. No vomiting or diarrhea. EMS arrival EKG was sent A-fib with RVR however noted ST depressions inferior lateral leads there was potential aVR elevation. Status post aspirin and 1 nitro by EMS there is no improvement with nitro. They gave her 50 mcg of fentanyl prior to her arrival states pain currently a 5. Reported blood pressure in the squad was systolic 180s. Per spouse patient had a heart cath at [facility] approximately 18 months ago there was no stenting placed however she was put on baby aspirin. She is followed by Steph practitioner through cardiology at [place]. Reviewing her medication she is on furosemide per spouse confirming some cardiomyopathy history. This medication was started this past October. Prior similar symptoms: No PFSH PFSH Medical History Atherosclerotic heart disease of [place] coronary artery with unstable angina pectoris Paroxysmal atrial fibrillation Nicotine dependence Severe chronic obstructive pulmonary disease Osteoarthritis Degenerative disc disease Tobacco abuse Chronic anticoagulation Afib Hypertension History of emphysema Acute bronchitis, unspecified Home Medications ???Medication ???Instructions ???Recorded ???Last Taken ???Type albuterol sulfate 90 mcg/actuation 1 puff inhalation Q4H PRN PRN Sob 04/21/16 Unknown History aerosol inhaler (ProAir HFA) /Or Wheezing ferrous sulfate 325 mg (65 mg 325 mg PO DAILY anemia 01/18/23 Unknown History iron) tablet sacubitril 24 mg-valsartan 26 mg 1 tab PO BID heart 01/18/23 Unknown History tablet (Entresto) cholecalciferol (vitamin D3) 50 50 mcg PO DAILY supplement 04/29/23 Unknown History mcg (2,000 unit) capsule aspirin 81 mg tablet,delayed 81 mg PO DAILY@0800 30 days #30 04/30/23 Unknown Rx release tabs atorvastatin 20 mg tablet 20 mg PO QHS 30 days #30 tabs 04/30/23 Unknown Rx metoprolol succinate 50 mg 50 mg PO BID 30 days #60 tabs 04/30/23 Unknown Rx tablet,extended release 24 hr apixaban 5 mg tablet (Eliquis) 5 mg PO BID 08/30/24 Unknown History fluticasone fur. 100 mcg-umeclid 1 ea inhalation DAILY wheezing 08/30/24 Unknown History 62.5 mcg-vilant 25 mcg inhalat.powder (Trelegy Ellipta) torsemide 20 mg tablet 20 mg PO DAILY 08/30/24 Unknown History Allergy/AdvReac Type Severity Reaction Status Date / Time No Known Allergies Allergy Verified 08/30/24 14:22 Family History Other CAD (coronary artery disease) Heart disease Hypertension Surgical History H/O adenoidectomy Hx of tonsillectomy History of appendectomy Total knee replacement status Hx of neck surgery Social History household members: spouse housing: house Smoking Status: Current every day smoker tobacco type: cigarettes alcohol intake: current alcohol intake frequency: holidays/special occasions only substance use type: does not use ROS ROS ED Constitutional Constitutional ED: Denies chills, fever(s) or sweats ENT ENT ED: Denies sore throat Cardiovascular Cardiovascular: Denies chest pain, leg edema, palpitations or racing heartbeat Respiratory/Chest Respiratory/Chest: Denies cough, dyspnea or dyspnea on exertion Gastrointestinal Gastrointestinal: Denies abdominal pain, diarrhea, nausea or vomiting Genitourinary Genitourinary ED: Denies dysuria, hematuria or urinary frequency Musculoskeletal Musculoskeletal: Reports back pain; Denies extremity pain or neck pain Integumentary Denies rash or wounds Neurologic Neurologic: Denies headache(s), paresthesias or weakness EXAM Physical Exam Const Vital Signs: 08/30/24 14:23 08/30/24 14:28 08/30/24 14:30 Temperature 98 F Temperature Source Temporal Pulse Rate 133 H 121 H Respiratory Rate 25 H 23 H Respiratory Effort Blood Pressure 61/47 L 57/33 L Blood Pressure Mean 51 41 Pulse Ox 91 92 (more content not included)... Normal [facility]&P Exam - Hospitalist [facility] Medical Records Department [address] [place] [address] H P Exam - Hospitalist 08/30/24 1710 MR#: [id number] Acct: [id number] Name: JANENE VASQUEZ Rep #: [id number] : 1955 69 From: Mickie Connell MD PCP: Dr. Eliazar Barrios DO Status:REG ER Location: ED HPI - General General Date of Admission: 08/30/24 Date of Service: 08/30/24 Chief Complaint: Palpitations HPI Narrative JANENE VASQUEZ, is a 69 F with history of A-fib, COPD on home oxygen at 2 to 3 L/minute heart failure preserved ejection fraction, coronary artery disease, hypertension, who presents to the ED with concerns regarding palpitations and back pain. She has been noticing palpitations with associated shortness of breath since this morning given her history of A-fib with RVR she decided to come to the ED. There is some associated chest pain but no orthopnea/PND,/pedal edema. No recent illnesses There is no fever/nausea/vomiting She continues to smoke, about half pack a day, no other drug use, no alcohol use In the ED Pulse at the time of presentation was 133, systolics dropped to 61/47, she received 2 shocks for cardioversion in the ED. she was started on an amiodarone drip Since the initiation of therapy her blood pressure has improved, and she is feeling overall better. During her last admission on 04/2023 she had a similar presentation and was found to have ST depression significant from V3-V6 and had presented in A-fib with RVR. 04/30/23 cardiac catheterization with heavily calcified coronary arteries, 60% mid LAD, 80% ostial major septal, 50% proximal OM1, 60% OM 2, 40 to 50% RCA, RPDA with strong recommendation for medical therapy and risk factor modification with medication regimen changes as noted above. [facility] Medical History Atherosclerotic heart disease of [place] coronary artery with unstable angina pectoris Paroxysmal atrial fibrillation Nicotine dependence Severe chronic obstructive pulmonary disease Osteoarthritis Degenerative disc disease Tobacco abuse Chronic anticoagulation Afib Hypertension History of emphysema Acute bronchitis, unspecified Home Medications ???Medication ???Instructions ???Recorded ???Last Taken ???Type albuterol sulfate 90 mcg/actuation 1 puff inhalation Q4H PRN PRN Sob 04/21/16 Unknown History aerosol inhaler (ProAir HFA) /Or Wheezing ferrous sulfate 325 mg (65 mg 325 mg PO DAILY anemia 01/18/23 Unknown History iron) tablet sacubitril 24 mg-valsartan 26 mg 1 tab PO BID heart 01/18/23 Unknown History tablet (Entresto) cholecalciferol (vitamin D3) 50 50 mcg PO DAILY supplement 04/29/23 Unknown History mcg (2,000 unit) capsule warfarin 5 mg tablet 5 mg PO DAILY blood thinner 04/29/23 04/28/23 History amlodipine 2.5 mg tablet 2.5 mg PO DAILY 30 days #30 tabs 04/30/23 Unknown Rx aspirin 81 mg tablet,delayed 81 mg PO DAILY@0800 30 days #30 04/30/23 Unknown Rx release tabs atorvastatin 20 mg tablet 20 mg PO QHS 30 days #30 tabs 04/30/23 Unknown Rx furosemide 20 mg tablet 20 mg PO BID edema 30 days #60 tabs 04/30/23 Unknown Rx metoprolol succinate 50 mg 50 mg PO BID 30 days #60 tabs 04/30/23 Unknown Rx tablet,extended release 24 hr apixaban 5 mg tablet (Eliquis) 5 mg PO BID 08/30/24 Unknown History torsemide 20 mg tablet 20 mg PO DAILY 08/30/24 Unknown History Allergy/AdvReac Type Severity Reaction Status Date / Time No Known Allergies Allergy Verified 08/30/24 14:22 Family History Other CAD (coronary artery disease) Heart disease Hypertension Surgical History H/O adenoidectomy Hx of tonsillectomy History of appendectomy Total knee replacement status Hx of neck surgery Social History household members: spouse housing: house Smoking Status: Current every day smoker tobacco type: cigarettes alcohol intake: current alcohol intake frequency: holidays/special occasions only substance use type: does not use ROS Review of Systems ROS Unobtainable: due to encephalopathy Constitutional Constitutional: Denies anorexia, change in weight, chills, fatigue, fever(s), malaise, night sweats, weakness or other Eyes Eyes: Reports blurry vision; Denies change in eye color, change in vision, discharge from eye(s), double vision, erythema, eye pain, loss of vision or other ENT HEENT: Denies abnormal hearing, dysphagia, ear pain, epistaxis, headache(s), hearing loss, nasal congestion, nasal discharge, post nasal drip, sinus pressure, sore throat or other Cardiovascular Cardiovascular: Reports dyspnea on exertion and palpitations Respiratory/Chest Respiratory/Chest: Denies cough, dyspnea, excessive ph (more content not included)... Normal [facility] L501.4020on 08-30-2024 TROPONIN-I HS 64 pg/mL High 3.0-54.0 [facility] Comment on above: Result Comment: Plea se Note: New Test Units and Gender Specific Reference Ranges. For more information see Policy Stat Procedure [place] High Sensitivity Troponin (TNIH) and attachments. Performed By: #### L 300.4310, L500.2500, L501.5425, L300.3900, L100.0100, L501.5200 #### [facility] [address] [place], [address] L501.5425on 08-30-2024 TROPONIN-I HS 7 pg/mL Normal 3.0-54.0 [facility] Comment on above: Order Comment: 1 Y Result Comment: Lyly rodriguez Note: New Test Units and Gender Specific Reference Ranges. For more information see Policy Stat Procedure [place] High Sensitivity Troponin (TNIH) and attachments. Performed By: #### L 300.4310, L500.2500, L501.5425, L300.3900, L100.0100, L501.5200 #### [facility] [address] [place], [address] Lactic Acidon 08-30-2024 Lactate [Moles/Vol] 1.9 mmol/L Normal 0.4-1.9 [facility] Comment on above: Order Comment: Y Performed By: #### L 300.4310, L500.2500, L501.5425, L300.3900, L100.0100, L501.5200 #### [facility] [address] [place], [address] Magnesiumon 08-30-2024 Magnesium [Mass/Vol] 1.9 mg/dL Normal 1.6-2.6 [facility] Comment on above: Order Comment: 1 Y Performed By: #### L 300.4310, L500.2500, L501.5425, L300.3900, L100.0100, L501.5200 #### [facility] [address] [place], [address] Partial Thromboplast Timeon 08-30-2024 aPTT Coag (Bld) [Time] 30.9 s Normal 24.1-36.2 [facility] Comment on above: Performed By: #### L 300.4310, L500.2500, L501.5425, L300.3900, L100.0100, L501.5200 #### [facility] [address] [place], [address] Prothrombin Time w/INRon INR Coag (PPP) [Relative time] 1.2 {INR} Normal [facility] Comment on above: Performed By: #### L 300.4310, L500.2500, L501.5425, L300.3900, L100.0100, L501.5200 #### [facility] [address] [place], [address] PT Coag (PPP) [Time] 15.1 s High 11.7-14.9 [facility] Comment on above: Performed By: #### L 300.4310, L500.2500, L501.5425, L300.3900, L100.0100, L501.5200 #### [facility] [address] [place], [address] Urinalysis, Completeon 08-30 BACTERIA 0 SEEN Normal None Seen [facility] Comment on above: Order Comment: 1 Y Performed By: #### L 300.4310, L500.2500, L501.5425, L300.3900, L100.0100, L501.5200 #### [facility] [address] [place], [address] EPI,SQUAMOUS 0 SEEN Normal 5-10 [facility] Comment on above: Order Comment: 1 Y Performed By: #### L 300.4310, L500.2500, L501.5425, L300.3900, L100.0100, L501.5200 #### [facility] [address] [place], [address] Mucus Ql (Urine sed) 0 SEEN Normal [facility] Comment on above: Order Comment: 1 Y Performed By: #### L 300.4310, L500.2500, L501.5425, L300.3900, L100.0100, L501.5200 #### [facility] [address] [place], [address] RBC 0 SEEN Normal 0-5 [facility] Comment on above: Order Comment: 1 Y Performed By: #### L 300.4310, L500.2500, L501.5425, L300.3900, L100.0100, L501.5200 #### [facility] [address] [place], [address] WBC 0 SEEN Normal 0-5 [facility] Comment on above: Order Comment: 1 Y Performed By: #### L 300.4310, L500.2500, L501.5425, L300.3900, L100.0100, L501.5200 #### [facility] [address] [place], [address] .Auto Diffon 08-14-2024 Basophil, Absolute 0.1 10 3/mcL Normal 0.0-0.2 [facility] Comment on above: Performed By: #### C BC, ADIFF, RFP, ANEU, IBC, GFR, FE, URIC, FERR #### [address] [address] #### PTH #### [address] [address] Basophils/100 WBC (Bld) 0.8 % Normal 0.0-2.5 [facility] Comment on above: Performed By: #### C BC, ADIFF, RFP, ANEU, IBC, GFR, FE, URIC, FERR #### [address] [address] #### PTH #### [address] [address] Eosinophil, Absolute 0.3 10 3/mcL Normal 0.0-0.[address] [facility] Comment on above: Performed By: #### C BC, ADIFF, RFP, ANEU, IBC, GFR, FE, URIC, FERR #### [address] [address] #### PTH #### [address] [address] Eosinophils/100 WBC (Bld) 3.3 % Normal 0.0-7.0 [facility] Comment on above: Performed By: #### C BC, ADIFF, RFP, ANEU, IBC, GFR, FE, URIC, FERR #### [address] [address] #### PTH #### [address] [address] Lymphocyte, Absolute 2.0 10 3/mcL Normal 0.9-4.[address] [facility] Comment on above: Performed By: #### C BC, ADIFF, RFP, ANEU, IBC, GFR, FE, URIC, FERR #### [place] [address] #### PTH #### [address] [address] Lymphocytes/100 WBC (Bld) 22.1 % Normal 20.0-40.0 [facility] Comment on above: Performed By: #### C BC, ADIFF, RFP, ANEU, IBC, GFR, FE, URIC, FERR #### [place] [address] #### PTH #### [address] [address] Monocyte, Absolute 0.6 10 3/mcL Normal 0.1-1.4 [facility] Comment on above: Performed By: #### C BC, ADIFF, RFP, ANEU, IBC, GFR, FE, URIC, FERR #### [place] [address] #### PTH #### [address] [address] Monocytes/100 WBC (Bld) 7.0 % Normal 2.0-13.0 [facility] Comment on above: Performed By: #### C BC, ADIFF, RFP, ANEU, IBC, GFR, FE, URIC, FERR #### [address] [address] #### PTH #### [address] [address] Neutrophils/100 WBC (Bld) 66.8 % Normal 50.0-75.0 [facility] Comment on above: Performed By: #### C BC, ADIFF, RFP, ANEU, IBC, GFR, FE, URIC, FERR #### [address] [address] #### PTH #### [address] [address] .GFRon 08-14-2024 GFR 87 ml/min/1.73sqm Normal [facility] Comment on above: Result Comment: GFR Population mean for , Non- Americans Ages 20-29 = 116 mL/min/1.73 sq.m. Ages 30-39 = 107 mL/min/1.73 sq.m. Ages 40-49 = 99 mL/min/1.73 sq.m. Ages 50-59 = 93 mL/min/1.73 sq.m. Ages 60-69 = 85 mL/min/1.73 sq.m. Ages 70+ = 75 mL/min/1.73 sq.m. Chronic Kidney Disease: Less than 60 mL/min/1.73 square meters End Stage Renal Disease: Less than 15 mL/min/1.73 square meters Performed By: #### C BC, ADIFF, RFP, ANEU, IBC, GFR, FE, URIC, FERR #### [address] [address] #### PTH #### [address] [address] GFR Non- 72 ml/min/1.73sqm Normal [facility] Comment on above: Result Comment: GFR Population mean for , Non- Americans Ages 20-29 = 116 mL/min/1.73 sq.m. Ages 30-39 = 107 mL/min/1.73 sq.m. Ages 40-49 = 99 mL/min/1.73 sq.m. Ages 50-59 = 93 mL/min/1.73 sq.m. Ages 60-69 = 85 mL/min/1.73 sq.m. Ages 70+ = 75 mL/min/1.73 sq.m. Chronic Kidney Disease: Less than 60 mL/min/1.73 square meters End Stage Renal Disease: Less than 15 mL/min/1.73 square meters Performed By: #### C BC, ADIFF, RFP, ANEU, IBC, GFR, FE, URIC, FERR #### [address] [address] #### PTH #### [address] [address] .NEUABSon 08-14-2024 Neutrophil, Absolute 6.1 10 3/mcL Normal 2.3-8.[address] [facility] Comment on above: Performed By: #### C BC, ADIFF, RFP, ANEU, IBC, GFR, FE, URIC, FERR #### [address] [address] #### PTH #### [address] [address] A1Con 08-14-2024 Glucose [Mass/Vol] 114 mg/dL Normal [facility] Comment on above: Result Comment: Pauline mated Average Glucose calculated by equation ((28.7xA1C)-46.7) Estimated average glucose (eAG) is a calculated value from Hemoglobin A1C and is customer counter representative of the average blood glucose level in the last 2-3 month period. Normal range: less than 114 mg/dL Performed By: #### C BC, ADIFF, RFP, ANEU, IBC, GFR, FE, URIC, FERR #### [address] [address] #### PTH #### [address] [address] HbA1c (Bld) [Mass fraction] 5.6 % Normal 4.3-6.4 [facility] Comment on above: Performed By: #### C BC, ADIFF, RFP, ANEU, IBC, GFR, FE, URIC, FERR #### [place] [address] #### PTH #### [place] [address] CBCon 08-14-2024 Erythrocyte distribution width (RBC) [Ratio] 13.2 % Normal 11.5-15.5 [facility] Comment on above: Performed By: #### C BC, ADIFF, RFP, ANEU, IBC, GFR, FE, URIC, FERR #### [place] [address] #### PTH #### [place] [address] Hematocrit (Bld) [Volume fraction] 39.7 % Normal 34.0-46.0 [facility] Comment on above: Performed By: #### C BC, ADIFF, RFP, ANEU, IBC, GFR, FE, URIC, FERR #### [place] [address] #### PTH #### [place] [address] Hgb 13.3 G/dL Normal 12.0-16.0 [facility] Comment on above: Performed By: #### C BC, ADIFF, RFP, ANEU, IBC, GFR, FE, URIC, FERR #### [place] [address] #### PTH #### [place] [address] MCH (RBC) [Entitic mass] 31.8 pg Normal 27.0-33.0 [facility] Comment on above: Performed By: #### C BC, ADIFF, RFP, ANEU, IBC, GFR, FE, URIC, FERR #### [place] [address] #### PTH #### [place] [address] MCHC 33.6 G/dL Normal 32.0-36.0 [facility] Comment on above: Performed By: #### C BC, ADIFF, RFP, ANEU, IBC, GFR, FE, URIC, FERR #### [place] [address] #### PTH #### [place] [address] MCV (RBC) [Entitic vol] 94.5 fL Normal 80.0-99.0 [facility] Comment on above: Performed By: #### C BC, ADIFF, RFP, ANEU, IBC, GFR, FE, URIC, FERR #### [place] [address] #### PTH #### [place] [address] Platelet 221 10 3/mcL Normal 150-450 [facility] Comment on above: Performed By: #### C BC, ADIFF, RFP, ANEU, IBC, GFR, FE, URIC, FERR #### [place] [address] #### PTH #### [place] [address] Platelet mean volume (Bld) [Entitic vol] 8.8 fL Normal 6.6-10.5 [facility] Comment on above: Performed By: #### C BC, ADIFF, RFP, ANEU, IBC, GFR, FE, URIC, FERR #### [place] [address] #### PTH #### [place] [address] RBC 4.20 10 6/mcL Normal 4.10-5.30 [facility] Comment on above: Performed By: #### C BC, ADIFF, RFP, ANEU, IBC, GFR, FE, URIC, FERR #### [place] [address] #### PTH #### [place] [address] WBC 9.1 10 3/mcL Normal 4.5-10.8 [facility] Comment on above: Performed By: #### C BC, ADIFF, RFP, ANEU, IBC, GFR, FE, URIC, FERR #### [address] [address] #### PTH #### [address] [address] CMPon 08-14-2024 Albumin Level 4.3 G/dL Normal 3.4-4.8 [facility] Comment on above: Performed By: #### C BC, ADIFF, RFP, ANEU, IBC, GFR, FE, URIC, FERR #### [place] [address] #### PTH #### [place] [address] Albumin/Globulin [Mass ratio] 1.8 {ratio} Normal 1.1-2.5 [facility] Comment on above: Performed By: #### C BC, ADIFF, RFP, ANEU, IBC, GFR, FE, URIC, FERR #### [place] [address] #### PTH #### [place] [address] ALP [Catalytic activity/Vol] 81 U/L Normal 40-135 [facility] Comment on above: Performed By: #### C BC, ADIFF, RFP, ANEU, IBC, GFR, FE, URIC, FERR #### [place] [address] #### PTH #### [place] [address] ALT [Catalytic activity/Vol] 24 U/L Normal 14-59 [facility] Comment on above: Performed By: #### C BC, ADIFF, RFP, ANEU, IBC, GFR, FE, URIC, FERR #### [address] [address] #### PTH #### [place] [id number] AST [Catalytic activity/Vol] 19 U/L Normal 10-40 [facility] Comment on above: Performed By: #### C BC, ADIFF, RFP, ANEU, IBC, GFR, FE, URIC, FERR #### [address] [address] #### PTH #### [address] [address] Bili Total 0.3 mg/dL Normal 0.2-1.0 [facility] Comment on above: Result Comment: Use of this assay is not recommended for patients undergoing treatment with eltrombopag due to the potential for falsely elevated results. Performed By: #### C BC, ADIFF, RFP, ANEU, IBC, GFR, FE, URIC, FERR #### [place] [address] #### PTH #### [address] [address] BUN/Creatinine Ratio 20 ratio Normal 7-27 [facility] Comment on above: Performed By: #### C BC, ADIFF, RFP, ANEU, IBC, GFR, FE, URIC, FERR #### [place] [address] #### PTH #### [address] [address] Calcium [Mass/Vol] 9.1 mg/dL Normal 8.4-10.2 [facility] Comment on above: Performed By: #### C BC, ADIFF, RFP, ANEU, IBC, GFR, FE, URIC, FERR #### [place] [address] #### PTH #### [address] [address] Chloride [Moles/Vol] 99 mmol/L Normal 98-107 [facility] Comment on above: Performed By: #### C BC, ADIFF, RFP, ANEU, IBC, GFR, FE, URIC, FERR #### [place] [address] #### PTH #### [address] [address] CO2 [Moles/Vol] 36 mmol/L High 23-31 [facility] Comment on above: Performed By: #### C BC, ADIFF, RFP, ANEU, IBC, GFR, FE, URIC, FERR #### [address] [address] #### PTH #### [address] [address] Creatinine [Mass/Vol] 0.79 mg/dL Normal 0.55-1.02 [facility] Comment on above: Result Comment: Test ing performed on Siemens Dimension EXL analyzer using a modified kinetic Abilio technique. Performed By: #### C BC, ADIFF, RFP, ANEU, IBC, GFR, FE, URIC, FERR #### [address] [address] #### PTH #### [place] [address] Electrolyte Balance 3.0 mEq/L Low 4.0-15.0 [facility] Comment on above: Performed By: #### C BC, ADIFF, RFP, ANEU, IBC, GFR, FE, URIC, FERR #### [address] [address] #### PTH #### [address] [address] Globulin 2.4 G/dL Normal [facility] Comment on above: Performed By: #### C BC, ADIFF, RFP, ANEU, IBC, GFR, FE, URIC, FERR #### [address] [address] #### PTH #### [address] [address] Glucose [Mass/Vol] 92 mg/dL Normal 83-110 [facility] Comment on above: Performed By: #### C BC, ADIFF, RFP, ANEU, IBC, GFR, FE, URIC, FERR #### [address] [address] #### PTH #### [address] [address] Potassium [Moles/Vol] 4.6 mmol/L Normal 3.5-5.1 [facility] Comment on above: Performed By: #### C BC, ADIFF, RFP, ANEU, IBC, GFR, FE, URIC, FERR #### [address] [address] #### PTH #### [place] [address] Sodium [Moles/Vol] 138 mmol/L Normal 136-145 [facility] Comment on above: Performed By: #### C BC, ADIFF, RFP, ANEU, IBC, GFR, FE, URIC, FERR #### [place] [address] #### PTH #### [place] [address] Total Protein 6.7 G/dL Normal 6.4-8.2 [facility] Comment on above: Performed By: #### C BC, ADIFF, RFP, ANEU, IBC, GFR, FE, URIC, FERR #### [place] [address] #### PTH #### [place] [address] Urea nitrogen [Mass/Vol] 16 mg/dL Normal 7-18 [facility] Comment on above: Performed By: #### C BC, ADIFF, RFP, ANEU, IBC, GFR, FE, URIC, FERR #### [place] [address] #### PTH #### [place] [address] LABORATORYOrdered By: SYSTEM SYSTEM on 08-14-2024 25-hydroxyvitamin D3 [Mass/Vol] 57.8 ng/mL Invalid Interpretation Code AO ADM SS Comment on above: Interpretive Data: I nterpretive Values Based on Total 25(OH) Vitamin D: Deficient <20 ng/mL Insufficient 20 - <30 ng/mL Sufficient 30-100 ng/mL Albumin BCP dye [Mass/Vol] 4.3 G/dL Normal 3.4 - 4.8 G/dL AO ADM SS Albumin/Globulin [Mass ratio] 1.8 {ratio} Normal 1.1 - 2.5 ratio AO ADM SS ALP [Catalytic activity/Vol] 81 U/L Normal 40 - 135 U/L AO ADM SS ALT With P-5'-P [Catalytic activity/Vol] 24 U/L Normal 14 - 59 U/L AO ADM SS AST With P-5'-P [Catalytic activity/Vol] 19 U/L Normal 10 - 40 U/L AO ADM SS Basophils (Bld) [#/Vol] 0.1 103/mcL Normal 0.0 - 0.2 10^3/mcL AO Workflow SS Basophils/100 WBC (Bld) 0.8 % Normal 0.0 - 2.5 % AO Workflow SS Bilirubin [Mass/Vol] 0.3 mg/dL Normal 0.2 - 1 .0 mg/dL AO ADM SS Comment on above: Interpretive Data: U se of this assay is not recommended for patients undergoing treatment with eltrombopag due to the potential for falsely elevated results. Calcium [Mass/Vol] 9.1 mg/dL Normal 8.4 - 10. 2 mg/dL AO ADM SS Chloride [Moles/Vol] 99 mmol/L Normal 98 - 10 7 mmol/L AO ADM SS CO2 [Moles/Vol] 36 mmol/L High 23 - 31 mmol/L AO ADM SS Creatinine [Mass/Vol] 0.79 mg/dL Normal 0.55 - 1.02 mg/dL AO ADM SS Comment on above: Interpretive Data: T esting performed on Siemens Dimension EXL analyzer using a modified kinetic Abilio technique. Electrolyte Balance 3.0 mEq/L Low 4.0 - 15 .0 mEq/L AO ADM SS Eosinophil, Absolute 0.3 103/mcL Normal 0.0 - 0 .7 10^3/mcL AO Workflow SS Eosinophils/100 WBC (Bld) 3.3 % Normal 0.0 - 7.0 % AO Workflow SS Erythrocyte distribution width (RBC) [Ratio] 13.2 % Normal 11.5 - 15.5 % AO Workflow SS GFR/1.73 sq M.predicted among blacks MDRD (S/P/Bld) [Vol rate/Area] 87 ml/min/1.73sqm Invalid Interpretation Code AO Chemistry S Comment on above: Interpretive Data: GFR Population mean for , Non- Americans Ages 20-29 = 116 mL/min/1.73 sq.m. Ages 30-39 = 107 mL/min/1.73 sq.m. Ages 40-49 = 99 mL/min/1.73 sq.m. Ages 50-59 = 93 mL/min/1.73 sq.m. Ages 60-69 = 85 mL/min/1.73 sq.m. Ages 70+ = 75 mL/min/1.73 sq.m. Chronic Kidney Disease: Less than 60 mL/min/1.73 square meters End Stage Renal Disease: Less than 15 mL/min/1.73 square meters GFR/1.73 sq M.predicted among non-blacks MDRD (S/P/Bld) [Vol rate/Area] 72 ml/min/1.73sqm Invalid Interpretation Code AO Chemistry S Comment on above: Interpretive Data: GFR Population mean for , Non- Americans Ages 20-29 = 116 mL/min/1.73 sq.m. Ages 30-39 = 107 mL/min/1.73 sq.m. Ages 40-49 = 99 mL/min/1.73 sq.m. Ages 50-59 = 93 mL/min/1.73 sq.m. Ages 60-69 = 85 mL/min/1.73 sq.m. Ages 70+ = 75 mL/min/1.73 sq.m. Chronic Kidney Disease: Less than 60 mL/min/1.73 square meters End Stage Renal Disease: Less than 15 mL/min/1.73 square meters Globulin 2.4 G/dL Invalid Interpretation Code AO ADM SS Glucose [Mass/Vol] 114 mg/dL Invalid Interpretation Code AO Chemistry S Comment on above: Interpretive Data: E stimated average glucose (eAG) is a calculated value from Hemoglobin A1C and is customer counter representative of the average blood glucose level in the last 2-3 month period. Normal range: less than 114 mg/dL Glucose [Mass/Vol] 92 mg/dL Normal 83 - 110 mg/dL AO ADM SS HbA1c (Bld) [Mass fraction] 5.6 % Normal 4.3 - 6.4 % AO ADM SS Hematocrit (Bld) [Volume fraction] 39.7 % Normal 34.0 - 46.0 % AO Workflow SS Hemoglobin (Bld) [Mass/Vol] 13.3 G/dL Normal 12.0 - 16.0 G/dL AO Workflow SS Lymphocytes (Bld) [#/Vol] 2.0 103/mcL Normal 0.9 - 4.3 10^3/mcL AO Workflow SS Lymphocytes/100 WBC (Bld) 22.1 % Normal 20.0 - 40.0 % AO Workflow SS MCH (RBC) [Entitic mass] 31.8 pg Normal 27.0 - 33.0 pg AO Workflow SS MCHC 33.6 G/dL Normal 32.0 - 36.0 G/dL AO Workflow SS MCV (RBC) [Entitic vol] 94.5 fL Normal 80.0 - 99.0 fL AO Workflow SS Monocytes (Bld) [#/Vol] 0.6 103/mcL Normal 0.1 - 1.4 10^3/mcL AO Workflow SS Monocytes/100 WBC (Bld) 7.0 % Normal 2.0 - 13.0 % AO Workflow SS Neutrophils (Bld) [#/Vol] 6.1 103/mcL Normal 2.3 - 8.1 10^3/mcL AO Workflow SS Neutrophils/100 WBC (Bld) 66.8 % Normal 50.0 - 75.0 % AO Workflow SS Platelet mean volume (Bld) [Entitic vol] 8.8 fL Normal 6.6 - 10.5 fL AO Workflow SS Platelets (Bld) [#/Vol] 221 103/mcL Normal 150 - 450 10^3/mcL AO Workflow SS Potassium [Moles/Vol] 4.6 mmol/L Normal 3.5 - 5.1 mmol/L AO ADM SS Protein [Mass/Vol] 6.7 G/dL Normal 6.4 - 8.2 G/dL AO ADM SS RBC (Bld) [#/Vol] 4.20 106/mcL Normal 4.10 - 5.3 0 10^6/mcL AO Workflow SS Sodium [Moles/Vol] 138 mmol/L Normal 136 - 145 mmol/L AO ADM SS TSH Qn 1.87 m[IU]/L Normal 0.36 - 3.74 mcIU/mL AO ADM SS Urea nitrogen [Mass/Vol] 16 mg/dL Normal 7 - 18 mg/dL AO ADM SS Urea nitrogen/Creatinine [Mass ratio] 20 ratio Normal 7 - 27 ratio AO ADM SS WBC (Bld) [#/Vol] 9.1 103/mcL Normal 4.5 - 10.8 10^3/mcL AO Workflow SS LABORATORYOrdered By: Ericka Campbell on 08-14-2024 Cholesterol [Mass/Vol] 164 mg/dL Normal 0 - 2 00 mg/dL AO ADM SS Comment on above: Interpretive Data: C holesterol Reference Interval: Less than 200 Desirable 200-239 Borderline high risk 240 and above High risk Cholesterol in HDL [Mass/Vol] 68 mg/dL High 40 - 60 mg/dL AO ADM SS Cholesterol in LDL [Mass/Vol] 74 mg/dL Normal 0 - 130 mg/dL AO ADM SS Triglyceride [Mass/Vol] 109 mg/dL Normal 0 - 150 mg/dL AO ADM SS Comment on above: Interpretive Data: T riglyceride Reference Interval: Less than 150 Normal 150-199 Borderline high risk 200-499 High risk 500 or higher Very high risk LIPIDon 08-14-2024 Cholesterol [Mass/Vol] 164 mg/dL Normal 0-[address] [facility] Comment on above: Result Comment: Chol esterol Reference Interval: Less than 200 Desirable 200-239 Borderline high risk 240 and above High risk Performed By: #### C BC, ADIFF, RFP, ANEU, IBC, GFR, FE, URIC, FERR #### [address] [address] #### PTH #### [address] [address] Cholesterol in HDL [Mass/Vol] 68 mg/dL High 40-60 [facility] Comment on above: Performed By: #### C BC, ADIFF, RFP, ANEU, IBC, GFR, FE, URIC, FERR #### [address] [address] #### PTH #### [address] [address] Cholesterol in LDL [Mass/Vol] 74 mg/dL Normal 0-130 [facility] Comment on above: Performed By: #### C BC, ADIFF, RFP, ANEU, IBC, GFR, FE, URIC, FERR #### [address] [address] #### PTH #### [address] [address] Triglyceride [Mass/Vol] 109 mg/dL Normal 0-150 [facility] Comment on above: Result Comment: Trig lyceride Reference Interval: Less than 150 Normal 150-199 Borderline high risk 200-499 High risk 500 or higher Very high risk Performed By: #### C BC, ADIFF, RFP, ANEU, IBC, GFR, FE, URIC, FERR #### [place] [address] #### PTH #### [place] [address] TSHon 08-14-2024 TSH Qn 1.87 m[IU]/L Normal 0.36-3.74 [facility] Comment on above: Performed By: #### C BC, ADIFF, RFP, ANEU, IBC, GFR, FE, URIC, FERR #### [place] [address] #### PTH #### [place] [address] VIDHon 08-14-2024 Vit. D 25-Hydroxy 57.8 ng/mL Normal [facility] Comment on above: Result Comment: Inte rpretive Values Based on Total 25(OH) Vitamin D: Deficient <20 ng/mL Insufficient 20 - <30 ng/mL Sufficient 30-100 ng/mL Performed By: #### C BC, ADIFF, RFP, ANEU, IBC, GFR, FE, URIC, FERR #### [place] [address] #### PTH #### [place] [address] .GFRon 05-12-2024 GFR 96 ml/min/1.73sqm Normal [facility] Comment on above: Result Comment: GFR Population mean for , Non- Americans Ages 20-29 = 116 mL/min/1.73 sq.m. Ages 30-39 = 107 mL/min/1.73 sq.m. Ages 40-49 = 99 mL/min/1.73 sq.m. Ages 50-59 = 93 mL/min/1.73 sq.m. Ages 60-69 = 85 mL/min/1.73 sq.m. Ages 70+ = 75 mL/min/1.73 sq.m. Chronic Kidney Disease: Less than 60 mL/min/1.73 square meters End Stage Renal Disease: Less than 15 mL/min/1.73 square meters Performed By: #### C BC, ADIFF, RFP, ANEU, IBC, GFR, FE, URIC, FERR #### [address] [address] #### PTH #### [address] [address] GFR Non- 79 ml/min/1.73sqm Normal [facility] Comment on above: Result Comment: GFR Population mean for , Non- Americans Ages 20-29 = 116 mL/min/1.73 sq.m. Ages 30-39 = 107 mL/min/1.73 sq.m. Ages 40-49 = 99 mL/min/1.73 sq.m. Ages 50-59 = 93 mL/min/1.73 sq.m. Ages 60-69 = 85 mL/min/1.73 sq.m. Ages 70+ = 75 mL/min/1.73 sq.m. Chronic Kidney Disease: Less than 60 mL/min/1.73 square meters End Stage Renal Disease: Less than 15 mL/min/1.73 square meters Performed By: #### C BC, ADIFF, RFP, ANEU, IBC, GFR, FE, URIC, FERR #### [address] [address] #### PTH #### [address] [address] BMPon 05-12-2024 BUN/Creatinine Ratio 21 ratio Normal 7-27 [facility] Comment on above: Performed By: #### C BC, ADIFF, RFP, ANEU, IBC, GFR, FE, URIC, FERR #### [address] [address] #### PTH #### [address] [address] Calcium [Mass/Vol] 9.1 mg/dL Normal 8.4-10.2 [facility] Comment on above: Performed By: #### C BC, ADIFF, RFP, ANEU, IBC, GFR, FE, URIC, FERR #### [address] [address] #### PTH #### [address] [address] Chloride [Moles/Vol] 98 mmol/L Normal 98-107 [facility] Comment on above: Performed By: #### C BC, ADIFF, RFP, ANEU, IBC, GFR, FE, URIC, FERR #### [place] [address] #### PTH #### [place] [address] CO2 [Moles/Vol] 37 mmol/L High 23-31 [facility] Comment on above: Performed By: #### C BC, ADIFF, RFP, ANEU, IBC, GFR, FE, URIC, FERR #### [place] [address] #### PTH #### [place] [address] Creatinine [Mass/Vol] 0.73 mg/dL Normal 0.55-1.02 [facility] Comment on above: Result Comment: Test ing performed on Siemens Dimension EXL analyzer using a modified kinetic Abilio technique. Performed By: #### C BC, ADIFF, RFP, ANEU, IBC, GFR, FE, URIC, FERR #### [place] [address] #### PTH #### [place] [address] Electrolyte Balance 5.0 mEq/L Normal 4.0-15.0 [facility] Comment on above: Performed By: #### C BC, ADIFF, RFP, ANEU, IBC, GFR, FE, URIC, FERR #### [place] [address] #### PTH #### [address] [address] Glucose [Mass/Vol] 99 mg/dL Normal 83-110 [facility] Comment on above: Performed By: #### C BC, ADIFF, RFP, ANEU, IBC, GFR, FE, URIC, FERR #### [address] [address] #### PTH #### [address] [address] Potassium [Moles/Vol] 4.5 mmol/L Normal 3.5-5.1 [facility] Comment on above: Performed By: #### C BC, ADIFF, RFP, ANEU, IBC, GFR, FE, URIC, FERR #### [address] [address] #### PTH #### [place] [address] Sodium [Moles/Vol] 140 mmol/L Normal 136-145 [facility] Comment on above: Performed By: #### C BC, ADIFF, RFP, ANEU, IBC, GFR, FE, URIC, FERR #### [address] [address] #### PTH #### [address] [address] Urea nitrogen [Mass/Vol] 15 mg/dL Normal 7-18 [facility] Comment on above: Performed By: #### C BC, ADIFF, RFP, ANEU, IBC, GFR, FE, URIC, FERR #### [place] [address] #### PTH #### [place] [address] LABORATORYOrdered By: SYSTEM SYSTEM on 05-12-2024 Calcium [Mass/Vol] 9.1 mg/dL Normal 8.4 - 10. 2 mg/dL AO ADM SS Chloride [Moles/Vol] 98 mmol/L Normal 98 - 10 7 mmol/L AO ADM SS CO2 [Moles/Vol] 37 mmol/L High 23 - 31 mmol/L AO ADM SS Creatinine [Mass/Vol] 0.73 mg/dL Normal 0.55 - 1.02 mg/dL AO ADM SS Comment on above: Interpretive Data: T esting performed on Siemens Dimension EXL analyzer using a modified kinetic Abilio technique. Electrolyte Balance 5.0 mEq/L Normal 4.0 - 15 .0 mEq/L AO ADM SS GFR/1.73 sq M.predicted among blacks MDRD (S/P/Bld) [Vol rate/Area] 96 ml/min/1.73sqm Invalid Interpretation Code AO Chemistry S Comment on above: Interpretive Data: GFR Population mean for , Non- Americans Ages 20-29 = 116 mL/min/1.73 sq.m. Ages 30-39 = 107 mL/min/1.73 sq.m. Ages 40-49 = 99 mL/min/1.73 sq.m. Ages 50-59 = 93 mL/min/1.73 sq.m. Ages 60-69 = 85 mL/min/1.73 sq.m. Ages 70+ = 75 mL/min/1.73 sq.m. Chronic Kidney Disease: Less than 60 mL/min/1.73 square meters End Stage Renal Disease: Less than 15 mL/min/1.73 square meters GFR/1.73 sq M.predicted among non-blacks MDRD (S/P/Bld) [Vol rate/Area] 79 ml/min/1.73sqm Invalid Interpretation Code AO Chemistry S Comment on above: Interpretive Data: GFR Population mean for , Non- Americans Ages 20-29 = 116 mL/min/1.73 sq.m. Ages 30-39 = 107 mL/min/1.73 sq.m. Ages 40-49 = 99 mL/min/1.73 sq.m. Ages 50-59 = 93 mL/min/1.73 sq.m. Ages 60-69 = 85 mL/min/1.73 sq.m. Ages 70+ = 75 mL/min/1.73 sq.m. Chronic Kidney Disease: Less than 60 mL/min/1.73 square meters End Stage Renal Disease: Less than 15 mL/min/1.73 square meters Glucose [Mass/Vol] 99 mg/dL Normal 83 - 110 mg/dL AO ADM SS Potassium [Moles/Vol] 4.5 mmol/L Normal 3.5 - 5.1 mmol/L AO ADM SS Sodium [Moles/Vol] 140 mmol/L Normal 136 - 145 mmol/L AO ADM SS Urea nitrogen [Mass/Vol] 15 mg/dL Normal 7 - 18 mg/dL AO ADM SS Urea nitrogen/Creatinine [Mass ratio] 21 ratio Normal 7 - 27 ratio AO ADM SS BD BONE DENSITY DEXA AXIAL S Benitez 04-21-2024 BD BONE DENSITY DEXA AXIAL SKELETON ORIGINAL EXAMINATION: BONE DENSITOMETRY 04/21/2024 12:19 pm TECHNIQUE: A bone density dual x-ray absorptiometry (DEXA) scan was performed of the axial (e.g. hips, spine) and/or appendicular (e.g. radius) skeleton as appropriate. COMPARISON: 09/09/2021 HISTORY: ORDERING SYSTEM PROVIDED HISTORY: Reason for Exam: screening FINDINGS: T Score Left Femoral Neck: -3.0 Left Femoral Neck: 0.517 (g/cm2) T Score Left Hip: -2.8 Left Hip: 0.603 (g/cm2) T Score Lumbar Spine: 0.3 Lumbar Spine: 1.078 (g/cmd2) BMD change from previous hip: 9.1% BMD change from previous lumbar Spine: 12.2% IMPRESSION: Osteoporosis by WHO criteria. World Health Organization criteria: (Comparing with young normal sex matched population) - Normal: T-score at or above -1 SD (standard deviation) - Osteopenia: T-score between -1 and -2.5 SD - Osteoporosis: T-score at or below -2.5 SD The NOF recommends that FDA-approved medical therapies be considered in post-menopausal women and men age >/= 50 years with a: * Hip or vertebral fracture, or * T-score of /= 20% for major osteoporotic fractures or * >/= 3% for hip fractures All treatment decisions require clinical judgement and consideration of individual patient factors, including patient preferences, comorbidities, previous drug use, risk factors not captured in the FRAX registered model (e.g., frailty, falls, vitamin D deficiency, increased bone turnover, interval significant decline in bone density) and possible under- or over-estimation of fracture risk by FRAX. Interpreted by: Christiano Alonso DO Preliminary Report By: Christiano Alonso DO Electronically signed By Christiano Alonso DO Dictated Date: 04/21/2024 12:28:50 PM Prelim Date: 04/21/2024 12:29:39 PM Sign Date: 04/21/2024 12:29:39 PM Ordering Provider: ELIAZAR [facility] [place] MAMMOGRAM SCREENING BILAT INDUL W/TOMOon 04-21-2024 MA MAMMOGRAM SCREENING BILATERAL W/CARTER ORIGINAL FROM: [facility] [address] [place] [id number] PROCEDURE FOR: JANENE VASQUEZ [address] [place] [id number] Home: PID#: [id number] Exam#: [id number] : 1955 Age: 68 TO: ELIAZAR BARRIOS DO [address] [place] [id number] Fax: NO FAX EXAMINATION: SCREENING DIGITAL BILATERAL MAMMOGRAM WITH TOMOSYNTHESIS, 04/21/2024 11:05 am TECHNIQUE: Screening mammography of the bilateral breasts was performed with tomosynthesis. 2D standard and 3D tomosynthesis combination imaging performed through both breasts in the MLO and CC projection. Computer aided detection was utilized in the interpretation of this exam. COMPARISON: 07/05/2023, 09/04/2022 HISTORY: Breast cancer screening. FINDINGS: BREAST DENSITY: There are scattered areas of fibroglandular density. Bilateral breast implants are stable. There are no significant masses or calcifications. IMPRESSION: No mammographic evidence of malignancy. Continued screening with annual mammograms is recommended. Kee Adhikari risk calculations, generated with the history provided, report this patient's 10 year risk and lifetime risk for developing breast cancer at 2.6% and 4.1%, respectively. Based on this assessment tool, if the patient's calculated lifetime risk is below 20%, then the patient is considered at average risk for developing breast cancer. If the patient's calculated lifetime risk is at or above 20%, then the patient is considered high risk for developing breast cancer and may be a candidate for supplemental breast MRI screening in addition to annual mammographic screening per the [employer] [employer]. BIRADS: BI-RADS: 1: Negative RECALL: 1 year screening RECALL TYPE: mammo LETTER SENT: Normal BI-RADS 1 and 2 Interpreted by: Christiano Roger MD Preliminary Report By: Christiano Roger MD Electronically signed By Christiano Roger MD Dictated Date: 04/21/2024 7:52:00 PM Prelim Date: 04/21/2024 7:54:10 PM Sign Date: 04/21/2024 7:54:10 PM Ordering Provider: ELIAZAR BARRIOS [employer]: LIZBETH JUAREZ RT (R)(M) letter sent: Normal BI-RADS 1 and 2 Mammogram BI-RADS: 1 Negative [facility] .GFRon 04-07-2024 GFR 86 ml/min/1.73sqm Normal [facility] Comment on above: Result Comment: GFR Population mean for , Non- Americans Ages 20-29 = 116 mL/min/1.73 sq.m. Ages 30-39 = 107 mL/min/1.73 sq.m. Ages 40-49 = 99 mL/min/1.73 sq.m. Ages 50-59 = 93 mL/min/1.73 sq.m. Ages 60-69 = 85 mL/min/1.73 sq.m. Ages 70+ = 75 mL/min/1.73 sq.m. Chronic Kidney Disease: Less than 60 mL/min/1.73 square meters End Stage Renal Disease: Less than 15 mL/min/1.73 square meters Performed By: #### G FR, PBNP, BMP #### [facility] [address] [address] GFR Non- 71 ml/min/1.73sqm Normal [facility] Comment on above: Result Comment: GFR Population mean for , Non- Americans Ages 20-29 = 116 mL/min/1.73 sq.m. Ages 30-39 = 107 mL/min/1.73 sq.m. Ages 40-49 = 99 mL/min/1.73 sq.m. Ages 50-59 = 93 mL/min/1.73 sq.m. Ages 60-69 = 85 mL/min/1.73 sq.m. Ages 70+ = 75 mL/min/1.73 sq.m. Chronic Kidney Disease: Less than 60 mL/min/1.73 square meters End Stage Renal Disease: Less than 15 mL/min/1.73 square meters Performed By: #### TYRONE TREVIZO BMP #### [address] [address] BMPnitesh 04-07-2024 BUN/Creatinine Ratio 12 ratio Normal 7-27 [facility] ([place]) Comment on above: Performed By: #### TYRONE TREVIZO BMP #### [address] [address] Calcium [Mass/Vol] 9.5 mg/dL Normal 8.4-10.2 [facility] ([place]) Comment on above: Performed By: #### TYRONE TREVIZO BMP #### [address] [address] Chloride [Moles/Vol] 101 mmol/L Normal 98-107 [facility] ([place]) Comment on above: Performed By: #### TYRONE TREVIZO BMP #### [address] [address] CO2 [Moles/Vol] 40 mmol/L High 23-31 [facility] Comment on above: Performed By: #### TYRONE TREVIZO BMP #### [address] [address] Creatinine [Mass/Vol] 0.80 mg/dL Normal 0.55-1.02 [facility] ([place]) Comment on above: Performed By: #### TYRONE TREVIZO BMP #### [address] [address] Electrolyte Balance 4.0 mEq/L Normal 4.0-15.0 [facility] ([place]) Comment on above: Performed By: #### TYRONE TREVIZO BMP #### [address] [address] Glucose [Mass/Vol] 127 mg/dL High 83-110 [facility] ([place]) Comment on above: Performed By: #### TYRONE TREVIZO BMP #### [address] [place] [address] Potassium [Moles/Vol] 4.9 mmol/L Normal 3.5-5.1 [facility] ([place]) Comment on above: Performed By: #### G TYRONE GROVES BMP #### [place] [address] [place], [place] [address] Sodium [Moles/Vol] 145 mmol/L Normal 136-145 [facility] ([place]) Comment on above: Performed By: #### G TYRONE GROVES, SILVANA #### [place] [address] [place], [place] [address] Urea nitrogen [Mass/Vol] 10 mg/dL Normal 7-18 [facility] Comment on above: Performed By: #### G TYRONE GROVES BMP #### [place] [address] [place], [place] [address] LABORATORYOrdered By: SYSTEM SYSTEM on 04-07-2024 Calcium [Mass/Vol] 9.5 mg/dL Normal 8.4 - 10. 2 mg/dL AO ADM SS Chloride [Moles/Vol] 101 mmol/L Normal 98 - 10 7 mmol/L AO ADM SS CO2 [Moles/Vol] 40 mmol/L High 23 - 31 mmol/L AO ADM SS Creatinine [Mass/Vol] 0.80 mg/dL Normal 0.55 - 1.02 mg/dL AO ADM SS Electrolyte Balance 4.0 mEq/L Normal 4.0 - 15 .0 mEq/L AO ADM SS GFR/1.73 sq M.predicted among blacks MDRD (S/P/Bld) [Vol rate/Area] 86 ml/min/1.73sqm Invalid Interpretation Code AO Chemistry S Comment on above: Interpretive Data: GFR Population mean for , Non- Americans Ages 20-29 = 116 mL/min/1.73 sq.m. Ages 30-39 = 107 mL/min/1.73 sq.m. Ages 40-49 = 99 mL/min/1.73 sq.m. Ages 50-59 = 93 mL/min/1.73 sq.m. Ages 60-69 = 85 mL/min/1.73 sq.m. Ages 70+ = 75 mL/min/1.73 sq.m. Chronic Kidney Disease: Less than 60 mL/min/1.73 square meters End Stage Renal Disease: Less than 15 mL/min/1.73 square meters GFR/1.73 sq M.predicted among non-blacks MDRD (S/P/Bld) [Vol rate/Area] 71 ml/min/1.73sqm Invalid Interpretation Code AO Chemistry S Comment on above: Interpretive Data: GFR Population mean for , Non- Americans Ages 20-29 = 116 mL/min/1.73 sq.m. Ages 30-39 = 107 mL/min/1.73 sq.m. Ages 40-49 = 99 mL/min/1.73 sq.m. Ages 50-59 = 93 mL/min/1.73 sq.m. Ages 60-69 = 85 mL/min/1.73 sq.m. Ages 70+ = 75 mL/min/1.73 sq.m. Chronic Kidney Disease: Less than 60 mL/min/1.73 square meters End Stage Renal Disease: Less than 15 mL/min/1.73 square meters Glucose [Mass/Vol] 127 mg/dL High 83 - 110 mg/dL AO ADM SS Natriuretic peptide.B prohormone N-Terminal [Mass/Vol] 288 pg/mL High 0 - 125 pg/mL AO ADM SS Comment on above: Interpretive Data: N T-proBNP results of less than 300 pg/mL effectively rules out acute congestive heart failure with 99% negative predictive value. Potassium [Moles/Vol] 4.9 mmol/L Normal 3.5 - 5.1 mmol/L AO ADM SS Sodium [Moles/Vol] 145 mmol/L Normal 136 - 145 mmol/L AO ADM SS Urea nitrogen [Mass/Vol] 10 mg/dL Normal 7 - 18 mg/dL AO ADM SS Urea nitrogen/Creatinine [Mass ratio] 12 ratio Normal 7 - 27 ratio AO ADM SS PBNPon 04-07-2024 Natriuretic peptide B (Bld) [Mass/Vol] 288 pg/mL High 0-125 [facility] ([place]) Comment on above: Result Comment: NT-p roBNP results of less than 300 pg/mL effectively rules out acute congestive heart failure with 99% negative predictive value. Performed By: #### G , TYRONE, BMP #### [place] [id number] .Auto Diffon 03-30-2024 Basophil, Absolute 0.1 10 3/mcL Normal 0.0-0.2 [facility] ([place]) Comment on above: Performed By: #### G FR, PBNP, BMP #### [address] [address] Basophils/100 WBC (Bld) 0.8 % Normal 0.0-2.5 [facility] ([place]) Comment on above: Performed By: #### G FR, PBNP, BMP #### [address] [address] Eosinophil, Absolute 0.2 10 3/mcL Normal 0.0-0.4 [facility] ([place]) Comment on above: Performed By: #### G FR, PBNP, BMP #### [address] [address] Eosinophils/100 WBC (Bld) 3.5 % Normal 0.0-7.0 [facility] ([place]) Comment on above: Performed By: #### G FR, PBNP, BMP #### [address] [address] Lymphocyte, Absolute 1.6 10 3/mcL Normal 0.8-3.9 [facility] ([place]) Comment on above: Performed By: #### G FR, PBNP, BMP #### [address] [address] Lymphocytes/100 WBC (Bld) 23.8 % Normal 10.0-50.0 [facility] ([place]) Comment on above: Performed By: #### G FR, PBNP, BMP #### [address] [address] Monocyte, Absolute 0.5 10 3/mcL Normal 0.2-1.0 [facility] ([place]) Comment on above: Performed By: #### G FR, PBNP, BMP #### [address] [address] Monocytes/100 WBC (Bld) 7.6 % Normal 1.7-13.0 [facility] ([place]) Comment on above: Performed By: #### G FR, PBNP, BMP #### [address] [address] Neutrophils/100 WBC (Bld) 64.3 % Normal 37.0-80.0 [facility] ([place] Comment on above: Performed By: #### G FR, PBNP, BMP #### [address] [address] .GFRon 03-30-2024 GFR 94 ml/min/1.73sqm Normal [facility] ([place] Comment on above: Result Comment: GFR Population mean for , Non- Americans Ages 20-29 = 116 mL/min/1.73 sq.m. Ages 30-39 = 107 mL/min/1.73 sq.m. Ages 40-49 = 99 mL/min/1.73 sq.m. Ages 50-59 = 93 mL/min/1.73 sq.m. Ages 60-69 = 85 mL/min/1.73 sq.m. Ages 70+ = 75 mL/min/1.73 sq.m. Chronic Kidney Disease: Less than 60 mL/min/1.73 square meters End Stage Renal Disease: Less than 15 mL/min/1.73 square meters Performed By: #### G FR, PBNP, BMP #### [address] [address] GFR Non- 78 ml/min/1.73sqm Normal [facility] ([place] Comment on above: Result Comment: GFR Population mean for , Non- Americans Ages 20-29 = 116 mL/min/1.73 sq.m. Ages 30-39 = 107 mL/min/1.73 sq.m. Ages 40-49 = 99 mL/min/1.73 sq.m. Ages 50-59 = 93 mL/min/1.73 sq.m. Ages 60-69 = 85 mL/min/1.73 sq.m. Ages 70+ = 75 mL/min/1.73 sq.m. Chronic Kidney Disease: Less than 60 mL/min/1.73 square meters End Stage Renal Disease: Less than 15 mL/min/1.73 square meters Performed By: #### TYRONE TREVIZO, BMP #### [address] [address] .NEUABSon 03-30-2024 Neutrophil, Absolute 4.4 10 3/mcL Normal 2.9-6.2 [facility] ([place]) Comment on above: Performed By: #### G TYRONE GROVES, BMP #### [place] [id number] A1Con 03-30-2024 Glucose [Mass/Vol] 111 mg/dL Normal [facility] ([place]) Comment on above: Result Comment: Pauline mated Average Glucose calculated by equation ((28.7xA1C)-46.7) Performed By: #### TYRONE TREVIZO, BMP #### [address] [address] HbA1c (Bld) [Mass fraction] 5.5 % Normal 4.3-6.4 [facility] [place] Comment on above: Performed By: #### TYRONE TREVIZO, BMP #### [address] [address] CBCon 03-30-2024 Erythrocyte distribution width (RBC) [Ratio] 13.3 % Normal 11.5-14.5 [facility] ([place] Comment on above: Performed By: #### TYRONE TREVIZO, BMP #### [address] [address] Hematocrit (Bld) [Volume fraction] 44.8 % Normal 37.0-47.0 [facility] ([place] Comment on above: Performed By: #### TYRONE TREVIZO, BMP #### [place] [id number] Hgb 14.8 G/dL Normal 12.0-16.0 [facility] [place] Comment on above: Performed By: #### TYRONE TREVIZO, BMP #### [place] [phone] MCH (RBC) [Entitic mass] 31.2 pg Normal 27.0-31.2 [facility] [place] Comment on above: Performed By: #### TYRONE TREVIZO, BMP #### [address] [address] MCHC 33.1 G/dL Normal 33.0-37.0 [facility] [place] Comment on above: Performed By: #### TYRONE TREVIZO, BMP #### [address] [address] MCV (RBC) [Entitic vol] 94.4 fL High 80.0-94.0 [facility] [place] Comment on above: Performed By: #### TYRONE TREVIZO, BMP #### [address] [address] Platelet 196 10 3/mcL Normal 130-400 [facility] ([place] Comment on above: Performed By: #### TYRONE TREVIZO, BMP #### [address] [address] Platelet mean volume (Bld) [Entitic vol] 8.6 fL Normal 7.4-10.4 [facility] ([place] Comment on above: Performed By: #### TYRONE TREVIZO, BMP #### [address] [address] RBC 4.74 10 6/mcL Normal 4.20-5.40 [facility] [place] Comment on above: Performed By: #### TYRONE TREVIZO, BMP #### [address] [address] WBC 6.9 10 3/mcL Normal 4.6-10.8 [facility] [place] Comment on above: Performed By: #### TYRONE TREVIZO, BMP #### [address] [address] CMPon 03-30-2024 Albumin Level 3.7 G/dL Normal 3.4-4.8 [facility] ([place] Comment on above: Performed By: #### TYRONE TREVIZO, BMP #### [address] [address] Albumin/Globulin [Mass ratio] 1.1 {ratio} Normal 1.1-2.5 [facility] ([place] Comment on above: Performed By: #### TYRONE TREVIZO, BMP #### [address] [address] ALP [Catalytic activity/Vol] 86 U/L Normal 40-135 [facility] ([place] Comment on above: Performed By: #### TYRONE TREVIZO, BMP #### [address] [address] ALT [Catalytic activity/Vol] 19 U/L Normal 14-59 [facility] ([place] Comment on above: Performed By: #### TYRONE TREVIZO, BMP #### [address] [address] AST [Catalytic activity/Vol] 16 U/L Normal 10-40 [facility] ([place] Comment on above: Performed By: #### TYRONE TREVIZO, BMP #### [address] [address] Bili Total 0.4 mg/dL Normal 0.2-1.0 [facility] ([place] Comment on above: Result Comment: Use of this assay is not recommended for patients undergoing treatment with eltrombopag due to the potential for falsely elevated results. Performed By: #### ALO TREVIZONP, BMP #### [address] [address] BUN/Creatinine Ratio 14 ratio Normal 7-27 [facility] ([place]) Comment on above: Performed By: #### Aurelia GROVES PBNP, BMP #### [address] [address] Calcium [Mass/Vol] 9.0 mg/dL Normal 8.4-10.2 [facility] ([place]) Comment on above: Performed By: #### Aurelia GROVES, PBNP, BMP #### [address] [address] Chloride [Moles/Vol] 102 mmol/L Normal 98-107 [facility] ([place]) Comment on above: Performed By: #### Aurelia GROVES, PBNP, BMP #### [address] [address] CO2 [Moles/Vol] 37 mmol/L High 23-31 [facility] ([place] Comment on above: Performed By: #### Aurelia GROVES, PBNP, BMP #### [address] [address] Creatinine [Mass/Vol] 0.74 mg/dL Normal 0.55-1.02 [facility] ([place]) Comment on above: Performed By: #### G , PBNP, BMP #### [address] [address] Electrolyte Balance 5.0 mEq/L Normal 4.0-15.0 [facility] ([place]) Comment on above: Performed By: #### Aurelia GROVES, PBNP, BMP #### [address] [address] Globulin 3.3 G/dL Normal [facility] ([place] Comment on above: Performed By: #### Aurelia GROVES, PBNP, BMP #### [address] [address] Glucose [Mass/Vol] 101 mg/dL Normal 83-110 [facility] ([place]) Comment on above: Performed By: #### Aurelia GROVES, PBNP, BMP #### [address] [address] Potassium [Moles/Vol] 4.9 mmol/L Normal 3.5-5.1 [facility] ([place]) Comment on above: Performed By: #### Aurelia FR, PBNP, BMP #### [address] [address] Sodium [Moles/Vol] 144 mmol/L Normal 136-145 [facility] ([place]) Comment on above: Performed By: #### Aurelia FR, PBNP, BMP #### [address] [address] Total Protein 7.0 G/dL Normal 6.4-8.2 [facility] ([place] Comment on above: Performed By: #### G , TYRONE, BMP #### [place] [address] [place], [place] [address] Urea nitrogen [Mass/Vol] 10 mg/dL Normal 7-18 [facility] ([place] Comment on above: Performed By: #### G , PBKEYANA, BMP #### [place] [address] [place], [place] [address] LABORATORYOrdered By: SYSTEM SYSTEM on 03-30-2024 25-hydroxyvitamin D3 [Mass/Vol] 60.6 ng/mL Invalid Interpretation Code AO ADM SS Comment on above: Interpretive Data: I nterpretive Values Based on Total 25(OH) Vitamin D: Deficient <20 ng/mL Insufficient 20 - <30 ng/mL Sufficient 30-100 ng/mL Albumin BCP dye [Mass/Vol] 3.7 G/dL Normal 3.4 - 4.8 G/dL AO ADM SS Albumin/Globulin [Mass ratio] 1.1 {ratio} Normal 1.1 - 2.5 ratio AO ADM SS ALP [Catalytic activity/Vol] 86 U/L Normal 40 - 135 U/L AO ADM SS ALT With P-5'-P [Catalytic activity/Vol] 19 U/L Normal 14 - 59 U/L AO ADM SS AST With P-5'-P [Catalytic activity/Vol] 16 U/L Normal 10 - 40 U/L AO ADM SS Basophil, Absolute 0.1 103/mcL Normal 0.0 - 0.2 10^3/mcL AO Workflow SS Basophils/100 WBC (Bld) 0.8 % Normal 0.0 - 2.5 % AO Workflow SS Bilirubin [Mass/Vol] 0.4 mg/dL Normal 0.2 - 1 .0 mg/dL AO ADM SS Comment on above: Interpretive Data: U se of this assay is not recommended for patients undergoing treatment with eltrombopag due to the potential for falsely elevated results. Calcium [Mass/Vol] 9.0 mg/dL Normal 8.4 - 10. 2 mg/dL AO ADM SS Chloride [Moles/Vol] 102 mmol/L Normal 98 - 10 7 mmol/L AO ADM SS CO2 [Moles/Vol] 37 mmol/L High 23 - 31 mmol/L AO ADM SS Creatinine [Mass/Vol] 0.74 mg/dL Normal 0.55 - 1.02 mg/dL AO ADM SS Electrolyte Balance 5.0 mEq/L Normal 4.0 - 15 .0 mEq/L AO ADM SS Eosinophil, Absolute 0.2 103/mcL Normal 0.0 - 0 .4 10^3/mcL AO Workflow SS Eosinophils/100 WBC (Bld) 3.5 % Normal 0.0 - 7.0 % AO Workflow SS Erythrocyte distribution width (RBC) [Ratio] 13.3 % Normal 11.5 - 14.5 % AO Workflow SS GFR/1.73 sq M.predicted among blacks MDRD (S/P/Bld) [Vol rate/Area] 94 ml/min/1.73sqm Invalid Interpretation Code AO Chemistry S Comment on above: Interpretive Data: GFR Population mean for , Non- Americans Ages 20-29 = 116 mL/min/1.73 sq.m. Ages 30-39 = 107 mL/min/1.73 sq.m. Ages 40-49 = 99 mL/min/1.73 sq.m. Ages 50-59 = 93 mL/min/1.73 sq.m. Ages 60-69 = 85 mL/min/1.73 sq.m. Ages 70+ = 75 mL/min/1.73 sq.m. Chronic Kidney Disease: Less than 60 mL/min/1.73 square meters End Stage Renal Disease: Less than 15 mL/min/1.73 square meters GFR/1.73 sq M.predicted among non-blacks MDRD (S/P/Bld) [Vol rate/Area] 78 ml/min/1.73sqm Invalid Interpretation Code AO Chemistry S Comment on above: Interpretive Data: GFR Population mean for , Non- Americans Ages 20-29 = 116 mL/min/1.73 sq.m. Ages 30-39 = 107 mL/min/1.73 sq.m. Ages 40-49 = 99 mL/min/1.73 sq.m. Ages 50-59 = 93 mL/min/1.73 sq.m. Ages 60-69 = 85 mL/min/1.73 sq.m. Ages 70+ = 75 mL/min/1.73 sq.m. Chronic Kidney Disease: Less than 60 mL/min/1.73 square meters End Stage Renal Disease: Less than 15 mL/min/1.73 square meters Globulin 3.3 G/dL Invalid Interpretation Code AO ADM SS Glucose [Mass/Vol] 101 mg/dL Normal 83 - 110 mg/dL AO ADM SS Glucose [Mass/Vol] 111 mg/dL Invalid Interpretation Code AO Chemistry S HbA1c (Bld) [Mass fraction] 5.5 % Normal 4.3 - 6.4 % AO ADM SS Hematocrit (Bld) [Volume fraction] 44.8 % Normal 37.0 - 47.0 % AO Workflow SS Hemoglobin (Bld) [Mass/Vol] 14.8 G/dL Normal 12.0 - 16.0 G/dL AO Workflow SS Lymphocyte, Absolute 1.6 103/mcL Normal 0.8 - 3 .9 10^3/mcL AO Workflow SS Lymphocytes/100 WBC (Bld) 23.8 % Normal 10.0 - 50.0 % AO Workflow SS MCH (RBC) [Entitic mass] 31.2 pg Normal 27.0 - 31.2 pg AO Workflow SS MCHC 33.1 G/dL Normal 33.0 - 37.0 G/dL AO Workflow SS MCV (RBC) [Entitic vol] 94.4 fL High 80.0 - 94.0 fL AO Workflow SS Monocyte, Absolute 0.5 103/mcL Normal 0.2 - 1.0 10^3/mcL AO Workflow SS Monocytes/100 WBC (Bld) 7.6 % Normal 1.7 - 13.0 % AO Workflow SS Neutrophil, Absolute 4.4 103/mcL Normal 2.9 - 6 .2 10^3/mcL AO Workflow SS Neutrophils/100 WBC (Bld) 64.3 % Normal 37.0 - 80.0 % AO Workflow SS Platelet mean volume (Bld) [Entitic vol] 8.6 fL Normal 7.4 - 10.4 fL AO Workflow SS Platelets (Bld) [#/Vol] 196 103/mcL Normal 130 - 400 10^3/mcL AO Workflow SS Potassium [Moles/Vol] 4.9 mmol/L Normal 3.5 - 5.1 mmol/L AO ADM SS Protein [Mass/Vol] 7.0 G/dL Normal 6.4 - 8.2 G/dL AO ADM SS RBC (Bld) [#/Vol] 4.74 106/mcL Normal 4.20 - 5.4 0 10^6/mcL AO Workflow SS Sodium [Moles/Vol] 144 mmol/L Normal 136 - 145 mmol/L AO ADM SS TSH Qn 1.30 m[IU]/L Normal 0.36 - 3.74 mcIU/mL AO ADM SS Urea nitrogen [Mass/Vol] 10 mg/dL Normal 7 - 18 mg/dL AO ADM SS Urea nitrogen/Creatinine [Mass ratio] 14 ratio Normal 7 - 27 ratio AO ADM SS WBC (Bld) [#/Vol] 6.9 103/mcL Normal 4.6 - 10.8 10^3/mcL AO Workflow SS LABORATORYOrdered By: Karen Andrade on 03-30-2024 Cholesterol [Mass/Vol] 146 mg/dL Normal 0 - 2 00 mg/dL AO ADM SS Comment on above: Interpretive Data: C holesterol Reference Interval: Less than 200 Desirable 200-239 Borderline high risk 240 and above High risk Cholesterol in HDL [Mass/Vol] 65 mg/dL High 40 - 60 mg/dL AO ADM SS Cholesterol in LDL [Mass/Vol] 66 mg/dL Normal 0 - 130 mg/dL AO ADM SS Triglyceride [Mass/Vol] 77 mg/dL Normal 0 - 150 mg/dL AO ADM SS Comment on above: Interpretive Data: T riglyceride Reference Interval: Less than 150 Normal 150-199 Borderline high risk 200-499 High risk 500 or higher Very high risk LIPIDon 03-30-2024 Cholesterol [Mass/Vol] 146 mg/dL Normal 0-200 [facility] ([place]) Comment on above: Result Comment: Chol esterol Reference Interval: Less than 200 Desirable 200-239 Borderline high risk 240 and above High risk Performed By: #### G TYRONE GROVES BMP #### [address] [address] Cholesterol in HDL [Mass/Vol] 65 mg/dL High 40-60 [facility] ([place] Comment on above: Performed By: #### G TYRONE GROVES BMP #### [address] [address] Cholesterol in LDL [Mass/Vol] 66 mg/dL Normal 0-130 [facility] ([place] Comment on above: Performed By: #### G TYRONE GROVES BMP #### [address] [address] Triglyceride [Mass/Vol] 77 mg/dL Normal 0-150 [facility] ([place] Comment on above: Result Comment: Trig lyceride Reference Interval: Less than 150 Normal 150-199 Borderline high risk 200-499 High risk 500 or higher Very high risk Performed By: #### G , TYRONE, SILVANA #### [place] [address] TSHon 03-30-2024 TSH Qn 1.30 m[IU]/L Normal 0.36-3.74 [facility] ([place] Comment on above: Performed By: #### G , TYRONE, BMP #### [place] [id number] VIDHon 03-30-2024 Vit. D 25-Hydroxy 60.6 ng/mL Normal [facility] ([place] Comment on above: Result Comment: Inte rpretive Values Based on Total 25(OH) Vitamin D: Deficient <20 ng/mL Insufficient 20 - <30 ng/mL Sufficient 30-100 ng/mL Performed By: #### G , TYRONE, BMP #### [place] [address] .Auto Diffon 01-05-2024 Basophil, Absolute 0.0 10 3/mcL Normal 0.0-0.2 [facility] ([place]) Comment on above: Performed By: #### U KARRIE, FES, PHOS, FERR #### [place] [address] #### PTH #### [address] [address] Basophils/100 WBC (Bld) 0.0 % Normal 0.0-2.5 [facility] ([place] Comment on above: Performed By: #### U KARRIE, FES, PHOS, FERR #### [place] [address] #### PTH #### [address] [address] Eosinophil, Absolute 0.0 10 3/mcL Normal 0.0-0.4 [facility] ([place] Comment on above: Performed By: #### U KARRIE, FES, PHOS, FERR #### [place] [address] #### PTH #### [address] [address] Eosinophils/100 WBC (Bld) 0.0 % Normal 0.0-7.0 [facility] ([place] Comment on above: Performed By: #### U KARRIE, FES, PHOS, FERR #### [place] [address] #### PTH #### [address] [address] Lymphocyte, Absolute 0.6 10 3/mcL Low 0.8-3.9 [facility] ([place]) Comment on above: Performed By: #### U KARRIE, FES, PHOS, FERR #### [place] [address] #### PTH #### [address] [address] Lymphocytes/100 WBC (Bld) 5.2 % Low 10.0-50.0 [facility] ([place] Comment on above: Performed By: #### U KARRIE, FES, PHOS, FERR #### [place] [address] #### PTH #### [address] [address] Monocyte, Absolute 0.3 10 3/mcL Normal 0.2-1.0 [facility] ([place] Comment on above: Performed By: #### U KARRIE, FES, PHOS, FERR #### [place] [address] #### PTH #### [address] [address] Monocytes/100 WBC (Bld) 2.4 % Normal 1.7-13.0 [facility] ([place] Comment on above: Performed By: #### U KARRIE, FES, PHOS, FERR #### [address] [address] #### PTH #### [address] [address] Neutrophils/100 WBC (Bld) 92.4 % High 37.0-80.0 [facility] ([place] Comment on above: Performed By: #### U KARRIE, FES, PHOS, FERR #### [address] [address] #### PTH #### [address] [address] .GFRon 01-05-2024 GFR 96 ml/min/1.73sqm Normal [facility] ([place]) Comment on above: Result Comment: GFR Population mean for , Non- Americans Ages 20-29 = 116 mL/min/1.73 sq.m. Ages 30-39 = 107 mL/min/1.73 sq.m. Ages 40-49 = 99 mL/min/1.73 sq.m. Ages 50-59 = 93 mL/min/1.73 sq.m. Ages 60-69 = 85 mL/min/1.73 sq.m. Ages 70+ = 75 mL/min/1.73 sq.m. Chronic Kidney Disease: Less than 60 mL/min/1.73 square meters End Stage Renal Disease: Less than 15 mL/min/1.73 square meters Performed By: #### U KARRIE, FES, PHOS, FERR #### [address] [address] #### PTH #### [address] [address] GFR Non- 79 ml/min/1.73sqm Normal [facility] ([place]) Comment on above: Result Comment: GFR Population mean for , Non- Americans Ages 20-29 = 116 mL/min/1.73 sq.m. Ages 30-39 = 107 mL/min/1.73 sq.m. Ages 40-49 = 99 mL/min/1.73 sq.m. Ages 50-59 = 93 mL/min/1.73 sq.m. Ages 60-69 = 85 mL/min/1.73 sq.m. Ages 70+ = 75 mL/min/1.73 sq.m. Chronic Kidney Disease: Less than 60 mL/min/1.73 square meters End Stage Renal Disease: Less than 15 mL/min/1.73 square meters Performed By: #### U KARRIE, FES, PHOS, FERR #### [address] [address] #### PTH #### [address] [address] .NEUABSon 01-05-2024 Neutrophil, Absolute 11.1 10 3/mcL High 2.9-6.2 [facility] ([place]) Comment on above: Performed By: #### U KARRIE, FES, PHOS, FERR #### [place] [address] #### PTH #### [place] [address] BMPon 01-05-2024 BUN/Creatinine Ratio 18 ratio Normal 7-27 [facility] ([place] Comment on above: Performed By: #### U KARRIE, FES, PHOS, FERR #### [place] [address] #### PTH #### [place] [address] Calcium [Mass/Vol] 8.6 mg/dL Normal 8.4-10.2 [facility] ([place]) Comment on above: Performed By: #### U KARRIE, FES, PHOS, FERR #### [place] [address] #### PTH #### [address] [address] Chloride [Moles/Vol] 102 mmol/L Normal 98-107 [facility] ([place] Comment on above: Performed By: #### U KARRIE, FES, PHOS, FERR #### [place] [address] #### PTH #### [address] [address] CO2 [Moles/Vol] 37 mmol/L High 23-31 [facility] ([place] Comment on above: Performed By: #### U KARRIE, FES, PHOS, FERR #### [place] [address] #### PTH #### [address] [address] Creatinine [Mass/Vol] 0.73 mg/dL Normal 0.55-1.02 [facility] ([place]) Comment on above: Performed By: #### U KARRIE, FES, PHOS, FERR #### [place] [address] #### PTH #### [address] [address] Electrolyte Balance 4.0 mEq/L Normal 4.0-15.0 [facility] ([place] Comment on above: Performed By: #### U KARRIE, FES, PHOS, FERR #### [place] [address] #### PTH #### [address] [address] Glucose [Mass/Vol] 143 mg/dL High 83-110 [facility] ([place]) Comment on above: Performed By: #### U KARRIE, FES, PHOS, FERR #### [place] [address] #### PTH #### [address] [address] Potassium [Moles/Vol] 4.8 mmol/L Normal 3.5-5.1 [facility] ([place] Comment on above: Performed By: #### U KARRIE, FES, PHOS, FERR #### [place] [address] #### PTH #### [address] [address] Sodium [Moles/Vol] 143 mmol/L Normal 136-145 [facility] ([place]) Comment on above: Performed By: #### U KARRIE, FES, PHOS, FERR #### [place] [id number] #### PTH #### [address] [address] Urea nitrogen [Mass/Vol] 13 mg/dL Normal 7-18 [facility] [place] Comment on above: Performed By: #### U KARRIE, FES, PHOS, FERR #### [address] [address] #### PTH #### [address] [address] CBCon 01-05-2024 Erythrocyte distribution width (RBC) [Ratio] 13.7 % Normal 11.5-14.5 [facility] ([place] Comment on above: Performed By: #### U KARRIE, FES, PHOS, FERR #### [place] [address] #### PTH #### [place] [address] Hematocrit (Bld) [Volume fraction] 40.9 % Normal 37.0-47.0 [facility] ([place]) Comment on above: Performed By: #### U KARRIE, FES, PHOS, FERR #### [place] [address] #### PTH #### [place] [address] Hgb 13.7 G/dL Normal 12.0-16.0 [facility] [place] Comment on above: Performed By: #### U KARRIE, FES, PHOS, FERR #### [place] [address] #### PTH #### [place] [address] MCH (RBC) [Entitic mass] 30.9 pg Normal 27.0-31.2 [facility] [place] Comment on above: Performed By: #### U KARRIE, FES, PHOS, FERR #### [place] [address] #### PTH #### [place] [address] MCHC 33.4 G/dL Normal 33.0-37.0 [facility] [place] Comment on above: Performed By: #### U KARRIE, FES, PHOS, FERR #### [place] [address] #### PTH #### [address] [address] MCV (RBC) [Entitic vol] 92.4 fL Normal 80.0-94.0 [facility] [place] Comment on above: Performed By: #### U KARRIE, FES, PHOS, FERR #### [place] [address] #### PTH #### [place] [address] Platelet 171 10 3/mcL Normal 130-400 [facility] ([place] Comment on above: Performed By: #### U KARRIE, FES, PHOS, FERR #### [place] [address] #### PTH #### [address] [address] Platelet mean volume (Bld) [Entitic vol] 9.0 fL Normal 7.4-10.4 [facility] [place] Comment on above: Performed By: #### U KARRIE, FES, PHOS, FERR #### [place] [address] #### PTH #### [place] [address] RBC 4.43 10 6/mcL Normal 4.20-5.40 [facility] ([place] Comment on above: Performed By: #### U KARRIE, FES, PHOS, FERR #### [place] [address] #### PTH #### [place] [address] WBC 12.1 10 3/mcL High 4.6-10.8 [facility] ([place] Comment on above: Performed By: #### U KARRIE, FES, PHOS, FERR #### [address] [place], [place] [address] #### PTH #### [place] [address] LABORATORYOrdered By: SYSTEM SYSTEM on 01-05-2024 Basophil, Absolute 0.0 103/mcL Normal 0.0 - 0.2 10^3/mcL AO Workflow SS Basophils/100 WBC (Bld) 0.0 % Normal 0.0 - 2.5 % AO Workflow SS Calcium [Mass/Vol] 8.6 mg/dL Normal 8.4 - 10. 2 mg/dL AO ADM SS Chloride [Moles/Vol] 102 mmol/L Normal 98 - 10 7 mmol/L AO ADM SS CO2 [Moles/Vol] 37 mmol/L High 23 - 31 mmol/L AO ADM SS Creatinine [Mass/Vol] 0.73 mg/dL Normal 0.55 - 1.02 mg/dL AO ADM SS Electrolyte Balance 4.0 mEq/L Normal 4.0 - 15 .0 mEq/L AO ADM SS Eosinophil, Absolute 0.0 103/mcL Normal 0.0 - 0 .4 10^3/mcL AO Workflow SS Eosinophils/100 WBC (Bld) 0.0 % Normal 0.0 - 7.0 % AO Workflow SS Erythrocyte distribution width (RBC) [Ratio] 13.7 % Normal 11.5 - 14.5 % AO Workflow SS GFR/1.73 sq M.predicted among blacks MDRD (S/P/Bld) [Vol rate/Area] 96 ml/min/1.73sqm Invalid Interpretation Code AO Chemistry S Comment on above: Interpretive Data: GFR Population mean for , Non- Americans Ages 20-29 = 116 mL/min/1.73 sq.m. Ages 30-39 = 107 mL/min/1.73 sq.m. Ages 40-49 = 99 mL/min/1.73 sq.m. Ages 50-59 = 93 mL/min/1.73 sq.m. Ages 60-69 = 85 mL/min/1.73 sq.m. Ages 70+ = 75 mL/min/1.73 sq.m. Chronic Kidney Disease: Less than 60 mL/min/1.73 square meters End Stage Renal Disease: Less than 15 mL/min/1.73 square meters GFR/1.73 sq M.predicted among non-blacks MDRD (S/P/Bld) [Vol rate/Area] 79 ml/min/1.73sqm Invalid Interpretation Code AO Chemistry S Comment on above: Interpretive Data: GFR Population mean for , Non- Americans Ages 20-29 = 116 mL/min/1.73 sq.m. Ages 30-39 = 107 mL/min/1.73 sq.m. Ages 40-49 = 99 mL/min/1.73 sq.m. Ages 50-59 = 93 mL/min/1.73 sq.m. Ages 60-69 = 85 mL/min/1.73 sq.m. Ages 70+ = 75 mL/min/1.73 sq.m. Chronic Kidney Disease: Less than 60 mL/min/1.73 square meters End Stage Renal Disease: Less than 15 mL/min/1.73 square meters Glucose [Mass/Vol] 143 mg/dL High 83 - 110 mg/dL AO ADM SS Hematocrit (Bld) [Volume fraction] 40.9 % Normal 37.0 - 47.0 % AO Workflow SS Hemoglobin (Bld) [Mass/Vol] 13.7 G/dL Normal 12.0 - 16.0 G/dL AO Workflow SS Lymphocyte, Absolute 0.6 103/mcL Low 0.8 - 3 .9 10^3/mcL AO Workflow SS Lymphocytes/100 WBC (Bld) 5.2 % Low 10.0 - 50.0 % AO Workflow SS Magnesium [Mass/Vol] 1.7 mg/dL Low 1.8 - 2 .4 mg/dL AO ADM SS MCH (RBC) [Entitic mass] 30.9 pg Normal 27.0 - 31.2 pg AO Workflow SS MCHC 33.4 G/dL Normal 33.0 - 37.0 G/dL AO Workflow SS MCV (RBC) [Entitic vol] 92.4 fL Normal 80.0 - 94.0 fL AO Workflow SS Monocyte, Absolute 0.3 103/mcL Normal 0.2 - 1.0 10^3/mcL AO Workflow SS Monocytes/100 WBC (Bld) 2.4 % Normal 1.7 - 13.0 % AO Workflow SS Neutrophil, Absolute 11.1 103/mcL High 2.9 - 6 .2 10^3/mcL AO Workflow SS Neutrophils/100 WBC (Bld) 92.4 % High 37.0 - 80.0 % AO Workflow SS Platelet mean volume (Bld) [Entitic vol] 9.0 fL Normal 7.4 - 10.4 fL AO Workflow SS Platelets (Bld) [#/Vol] 171 103/mcL Normal 130 - 400 10^3/mcL AO Workflow SS Potassium [Moles/Vol] 4.8 mmol/L Normal 3.5 - 5.1 mmol/L AO ADM SS RBC (Bld) [#/Vol] 4.43 106/mcL Normal 4.20 - 5.4 0 10^6/mcL AO Workflow SS Sodium [Moles/Vol] 143 mmol/L Normal 136 - 145 mmol/L AO ADM SS Urea nitrogen [Mass/Vol] 13 mg/dL Normal 7 - 18 mg/dL AO ADM SS Urea nitrogen/Creatinine [Mass ratio] 18 ratio Normal 7 - 27 ratio AO ADM SS WBC (Bld) [#/Vol] 12.1 103/mcL High 4.6 - 10.8 10^3/mcL AO Workflow SS MGon 01-05-2024 Magnesium [Mass/Vol] 1.7 mg/dL Low 1.8-2.4 [facility] ([place]) Comment on above: Performed By: #### U KARRIE, FES, PHOS, FERR #### [address] [address] #### PTH #### [address] [address] .Auto Diffon 01-04-2024 Basophil, Absolute 0.0 10 3/mcL Normal 0.0-0.2 [facility] ([place]) Comment on above: Performed By: #### G FR PBNP, BMP #### [address] [address] Basophils/100 WBC (Bld) 0.2 % Normal 0.0-2.5 [facility] ([place] Comment on above: Performed By: #### G FR PBKEYANA, BMP #### [address] [address] Eosinophil, Absolute 0.0 10 3/mcL Normal 0.0-0.4 [facility] ([place]) Comment on above: Performed By: #### G FR, PBNP, BMP #### [address] [address] Eosinophils/100 WBC (Bld) 0.0 % Normal 0.0-7.0 [facility] ([place] Comment on above: Performed By: #### G FR, PBNP, BMP #### [address] [address] Lymphocyte, Absolute 0.5 10 3/mcL Low 0.8-3.9 [facility] ([place]) Comment on above: Performed By: #### G FR, PBNP, BMP #### [address] [address] Lymphocytes/100 WBC (Bld) 9.2 % Low 10.0-50.0 [facility] ([place]) Comment on above: Performed By: #### G FR, PBNP, BMP #### [address] [address] Monocyte, Absolute 0.2 10 3/mcL Normal 0.2-1.0 [facility] ([place]) Comment on above: Performed By: #### G FR, PBNP, BMP #### [address] [address] Monocytes/100 WBC (Bld) 2.9 % Normal 1.7-13.0 [facility] ([place]) Comment on above: Performed By: #### G FR, PBNP, BMP #### [address] [address] Neutrophils/100 WBC (Bld) 87.7 % High 37.0-80.0 [facility] ([place]) Comment on above: Performed By: #### G FR, PBNP, BMP #### [address] [address] .GFRon 01-04-2024 GFR 61 ml/min/1.73sqm Normal [facility] ([place]) Comment on above: Result Comment: GFR Population mean for , Non- Americans Ages 20-29 = 116 mL/min/1.73 sq.m. Ages 30-39 = 107 mL/min/1.73 sq.m. Ages 40-49 = 99 mL/min/1.73 sq.m. Ages 50-59 = 93 mL/min/1.73 sq.m. Ages 60-69 = 85 mL/min/1.73 sq.m. Ages 70+ = 75 mL/min/1.73 sq.m. Chronic Kidney Disease: Less than 60 mL/min/1.73 square meters End Stage Renal Disease: Less than 15 mL/min/1.73 square meters Performed By: #### G FR, PBNP, BMP #### [address] [address] GFR Non- 50 ml/min/1.73sqm Normal [facility] ([place] Comment on above: Result Comment: GFR Population mean for , Non- Americans Ages 20-29 = 116 mL/min/1.73 sq.m. Ages 30-39 = 107 mL/min/1.73 sq.m. Ages 40-49 = 99 mL/min/1.73 sq.m. Ages 50-59 = 93 mL/min/1.73 sq.m. Ages 60-69 = 85 mL/min/1.73 sq.m. Ages 70+ = 75 mL/min/1.73 sq.m. Chronic Kidney Disease: Less than 60 mL/min/1.73 square meters End Stage Renal Disease: Less than 15 mL/min/1.73 square meters Performed By: #### G , PBNP, BMP #### [address] [address] .NEUABSon 01-04-2024 Neutrophil, Absolute 5.1 10 3/mcL Normal 2.9-6.2 [facility] ([place] Comment on above: Performed By: #### G FR, PBNP, BMP #### [address] [address] BMPon 01-04-2024 BUN/Creatinine Ratio 17 ratio Normal 7-27 [facility] ([place] Comment on above: Performed By: #### G FR, PBNP, BMP #### [address] [address] Calcium [Mass/Vol] 8.7 mg/dL Normal 8.4-10.2 [facility] ([place]) Comment on above: Performed By: #### TYRONE TREVIZO BMP #### [address] [address] Chloride [Moles/Vol] 103 mmol/L Normal 98-107 [facility] ([place] Comment on above: Performed By: #### TYRONE TREVIZO BMP #### [address] [address] CO2 [Moles/Vol] 37 mmol/L High 23-31 [facility] ([place] Comment on above: Performed By: #### TYRONE TREVIZO BMP #### [address] [address] Creatinine [Mass/Vol] 1.08 mg/dL High 0.55-1.02 [facility] ([place]) Comment on above: Performed By: #### TYRONE TREVIZO BMP #### [address] [address] Electrolyte Balance 4.0 mEq/L Normal 4.0-15.0 [facility] ([place]) Comment on above: Performed By: #### TYRONE TREVIZO BMP #### [address] [address] Glucose [Mass/Vol] 177 mg/dL High 83-110 [facility] ([place]) Comment on above: Performed By: #### TYRONE TREVIZO BMP #### [address] [address] Potassium [Moles/Vol] 4.4 mmol/L Normal 3.5-5.1 [facility] ([place]) Comment on above: Performed By: #### TYRONE TREVIZO BMP #### [address] [address] Sodium [Moles/Vol] 144 mmol/L Normal 136-145 [facility] ([place]) Comment on above: Performed By: #### TYRONE TREVIZO BMP #### [address] [place] [address] Urea nitrogen [Mass/Vol] 18 mg/dL Normal 7-18 [facility] ([place] Comment on above: Performed By: #### TYRONE TREVIZO, BMP #### [address] [address] CBCon 01-04-2024 Erythrocyte distribution width (RBC) [Ratio] 13.4 % Normal 11.5-14.5 [facility] ([place] Comment on above: Performed By: #### Aurelia GROVES PBNP, BMP #### [address] [address] Hematocrit (Bld) [Volume fraction] 41.6 % Normal 37.0-47.0 [facility] ([place] Comment on above: Performed By: #### Aurelia GROVES PBNP, BMP #### [address] [address] Hgb 14.2 G/dL Normal 12.0-16.0 [facility] [place] Comment on above: Performed By: #### Aurelia GROVES PBNP, BMP #### [address] [address] MCH (RBC) [Entitic mass] 31.5 pg High 27.0-31.2 [facility] ([place] Comment on above: Performed By: #### Aurelia GROVES, PBNP, BMP #### [address] [address] MCHC 34.0 G/dL Normal 33.0-37.0 [facility] ([place] Comment on above: Performed By: #### Aurelia GROVES, PBNP, BMP #### [address] [address] MCV (RBC) [Entitic vol] 92.7 fL Normal 80.0-94.0 [facility] ([place] Comment on above: Performed By: #### Aurelia FR, PBNP, BMP #### [address] [address] Platelet 162 10 3/mcL Normal 130-400 [facility] ([place] Comment on above: Performed By: #### G FR, PBNP, BMP #### [address] [place], [place] [address] Platelet mean volume (Bld) [Entitic vol] 8.7 fL Normal 7.4-10.4 [facility] ([place] Comment on above: Performed By: #### G FR, PBNP, BMP #### [address] [place], [place] [address] RBC 4.49 10 6/mcL Normal 4.20-5.40 [facility] ([place] Comment on above: Performed By: #### G FR, PBNP, BMP #### [address] [place], [place] [address] WBC 5.8 10 3/mcL Normal 4.6-10.8 [facility] ([place] Comment on above: Performed By: #### G FR, PBNP, BMP #### [address] [place], [place] [address] LABORATORYOrdered By: SYSTEM SYSTEM on 01-04-2024 Basophil, Absolute 0.0 103/mcL Normal 0.0 - 0.2 10^3/mcL AO Workflow SS Basophils/100 WBC (Bld) 0.2 % Normal 0.0 - 2.5 % AO Workflow SS Calcium [Mass/Vol] 8.7 mg/dL Normal 8.4 - 10. 2 mg/dL AO ADM SS Chloride [Moles/Vol] 103 mmol/L Normal 98 - 10 7 mmol/L AO ADM SS CO2 [Moles/Vol] 37 mmol/L High 23 - 31 mmol/L AO ADM SS Creatinine [Mass/Vol] 1.08 mg/dL High 0.55 - 1.02 mg/dL AO ADM SS Electrolyte Balance 4.0 mEq/L Normal 4.0 - 15 .0 mEq/L AO ADM SS Eosinophil, Absolute 0.0 103/mcL Normal 0.0 - 0 .4 10^3/mcL AO Workflow SS Eosinophils/100 WBC (Bld) 0.0 % Normal 0.0 - 7.0 % AO Workflow SS Erythrocyte distribution width (RBC) [Ratio] 13.4 % Normal 11.5 - 14.5 % AO Workflow SS GFR/1.73 sq M.predicted among blacks MDRD (S/P/Bld) [Vol rate/Area] 61 ml/min/1.73sqm Invalid Interpretation Code AO Chemistry S Comment on above: Interpretive Data: GFR Population mean for , Non- Americans Ages 20-29 = 116 mL/min/1.73 sq.m. Ages 30-39 = 107 mL/min/1.73 sq.m. Ages 40-49 = 99 mL/min/1.73 sq.m. Ages 50-59 = 93 mL/min/1.73 sq.m. Ages 60-69 = 85 mL/min/1.73 sq.m. Ages 70+ = 75 mL/min/1.73 sq.m. Chronic Kidney Disease: Less than 60 mL/min/1.73 square meters End Stage Renal Disease: Less than 15 mL/min/1.73 square meters GFR/1.73 sq M.predicted among non-blacks MDRD (S/P/Bld) [Vol rate/Area] 50 ml/min/1.73sqm Invalid Interpretation Code AO Chemistry S Comment on above: Interpretive Data: GFR Population mean for , Non- Americans Ages 20-29 = 116 mL/min/1.73 sq.m. Ages 30-39 = 107 mL/min/1.73 sq.m. Ages 40-49 = 99 mL/min/1.73 sq.m. Ages 50-59 = 93 mL/min/1.73 sq.m. Ages 60-69 = 85 mL/min/1.73 sq.m. Ages 70+ = 75 mL/min/1.73 sq.m. Chronic Kidney Disease: Less than 60 mL/min/1.73 square meters End Stage Renal Disease: Less than 15 mL/min/1.73 square meters Glucose [Mass/Vol] 177 mg/dL High 83 - 110 mg/dL AO ADM SS Hematocrit (Bld) [Volume fraction] 41.6 % Normal 37.0 - 47.0 % AO Workflow SS Hemoglobin (Bld) [Mass/Vol] 14.2 G/dL Normal 12.0 - 16.0 G/dL AO Workflow SS Lymphocyte, Absolute 0.5 103/mcL Low 0.8 - 3 .9 10^3/mcL AO Workflow SS Lymphocytes/100 WBC (Bld) 9.2 % Low 10.0 - 50.0 % AO Workflow SS Magnesium [Mass/Vol] 1.8 mg/dL Normal 1.8 - 2 .4 mg/dL AO ADM SS MCH (RBC) [Entitic mass] 31.5 pg High 27.0 - 31.2 pg AO Workflow SS MCHC 34.0 G/dL Normal 33.0 - 37.0 G/dL AO Workflow SS MCV (RBC) [Entitic vol] 92.7 fL Normal 80.0 - 94.0 fL AO Workflow SS Monocyte, Absolute 0.2 103/mcL Normal 0.2 - 1.0 10^3/mcL AO Workflow SS Monocytes/100 WBC (Bld) 2.9 % Normal 1.7 - 13.0 % AO Workflow SS Neutrophil, Absolute 5.1 103/mcL Normal 2.9 - 6 .2 10^3/mcL AO Workflow SS Neutrophils/100 WBC (Bld) 87.7 % High 37.0 - 80.0 % AO Workflow SS Platelet mean volume (Bld) [Entitic vol] 8.7 fL Normal 7.4 - 10.4 fL AO Workflow SS Platelets (Bld) [#/Vol] 162 103/mcL Normal 130 - 400 10^3/mcL AO Workflow SS Potassium [Moles/Vol] 4.4 mmol/L Normal 3.5 - 5.1 mmol/L AO ADM SS RBC (Bld) [#/Vol] 4.49 106/mcL Normal 4.20 - 5.4 0 10^6/mcL AO Workflow SS Sodium [Moles/Vol] 144 mmol/L Normal 136 - 145 mmol/L AO ADM SS Urea nitrogen [Mass/Vol] 18 mg/dL Normal 7 - 18 mg/dL AO ADM SS Urea nitrogen/Creatinine [Mass ratio] 17 ratio Normal 7 - 27 ratio AO ADM SS WBC (Bld) [#/Vol] 5.8 103/mcL Normal 4.6 - 10.8 10^3/mcL AO Workflow SS MGon 01-04-2024 Magnesium [Mass/Vol] 1.8 mg/dL Normal 1.8-2.4 [facility] ([place] Comment on above: Performed By: #### G TYRONE GROVES, SILVANA #### [address] [place] [address] .Auto Diffon 01-03-2024 Basophil, Absolute 0.1 10 3/mcL Normal 0.0-0.2 [facility] ([place] Comment on above: Performed By: #### TYRONE TREVIZO, BMP #### [address] [address] Basophils/100 WBC (Bld) 0.9 % Normal 0.0-2.5 [facility] ([place] Comment on above: Performed By: #### G FR PBNP, BMP #### [address] [address] Eosinophil, Absolute 0.0 10 3/mcL Normal 0.0-0.4 [facility] ([place]) Comment on above: Performed By: #### Aurelia GROVES PBNP, BMP #### [address] [address] Eosinophils/100 WBC (Bld) 0.5 % Normal 0.0-7.0 [facility] ([place] Comment on above: Performed By: #### Aurelia GROVES PBNP, BMP #### [address] [address] Lymphocyte, Absolute 1.1 10 3/mcL Normal 0.8-3.9 [facility] ([place]) Comment on above: Performed By: #### Aurelia FR PBNP, BMP #### [address] [address] Lymphocytes/100 WBC (Bld) 17.1 % Normal 10.0-50.0 [facility] ([place] Comment on above: Performed By: #### Aurelia FR PBNP, BMP #### [address] [address] Monocyte, Absolute 1.0 10 3/mcL Normal 0.2-1.0 [facility] ([place] Comment on above: Performed By: #### Aurelia FR PBNP, BMP #### [address] [address] Monocytes/100 WBC (Bld) 14.7 % High 1.7-13.0 [facility] ([place] Comment on above: Performed By: #### Aurelia FR PBNP, BMP #### [employer] [address] [address] Neutrophils/100 WBC (Bld) 66.8 % Normal 37.0-80.0 [facility] ([place] Comment on above: Performed By: #### G FR, PBNP, BMP #### [employer] [address] [address] .GFRon 01-03-2024 GFR 85 ml/min/1.73sqm Normal [facility] ([place] Comment on above: Result Comment: GFR Population mean for , Non- Americans Ages 20-29 = 116 mL/min/1.73 sq.m. Ages 30-39 = 107 mL/min/1.73 sq.m. Ages 40-49 = 99 mL/min/1.73 sq.m. Ages 50-59 = 93 mL/min/1.73 sq.m. Ages 60-69 = 85 mL/min/1.73 sq.m. Ages 70+ = 75 mL/min/1.73 sq.m. Chronic Kidney Disease: Less than 60 mL/min/1.73 square meters End Stage Renal Disease: Less than 15 mL/min/1.73 square meters Performed By: #### G FR, PBNP, BMP #### [employer] [address] [address] GFR Non- 70 ml/min/1.73sqm Normal [facility] ([place] Comment on above: Result Comment: GFR Population mean for , Non- Americans Ages 20-29 = 116 mL/min/1.73 sq.m. Ages 30-39 = 107 mL/min/1.73 sq.m. Ages 40-49 = 99 mL/min/1.73 sq.m. Ages 50-59 = 93 mL/min/1.73 sq.m. Ages 60-69 = 85 mL/min/1.73 sq.m. Ages 70+ = 75 mL/min/1.73 sq.m. Chronic Kidney Disease: Less than 60 mL/min/1.73 square meters End Stage Renal Disease: Less than 15 mL/min/1.73 square meters Performed By: #### G FR, PBNP, BMP #### [address] [address] .MDWon 01-03-2024 Monocyte Distribution Width 20.27 High 0.00-20.00 [facility] ([place] Comment on above: Result Comment: For adults in ED, MDW>20.0 may be associated with a higher risk of sepsis during the first 12hrs of hospital admission Performed By: #### G TYRONE GROVES BMP #### [address] [address] .NEUABSon 01-03-2024 Neutrophil, Absolute 4.4 10 3/mcL Normal 2.9-6.2 [facility] ([place]) Comment on above: Performed By: #### G TYRONE GROVES, SILVANA #### [address] [address] BGon 01-03-2024 Base excess Calc (Bld) [Moles/Vol] 4.9 mmol/L Normal [facility] ([place] Comment on above: Performed By: #### B G #### [address] [address] CO2 [Moles/Vol] 34.9 mmol/L High 22.0-30.0 [facility] ([place] Comment on above: Performed By: #### B G #### [address] [address] HCO3 (Bld) [Moles/Vol] 33.0 mmol/L High 21.0-29.0 [facility] ([place]) Comment on above: Performed By: #### B G #### [address] [address] Oxygen (Bld) [Partial pressure] 57.7 mm[Hg] Low 74.0-108.0 [facility] ([place] Comment on above: Performed By: #### B G #### [address] [address] Oxygen saturation in Blood 90.7 % Low 92.0-96.0 [facility] ([place] Comment on above: Performed By: #### B G #### [address] [address] pCO2 62.3 mmHg High 32.0-46.0 [facility] ([place] Comment on above: Performed By: #### B G #### [address] [address] pH (Bld) 7.342 [pH] Low 7.380-7.460 [facility] ([place] Comment on above: Performed By: #### B G #### [address] [address] BMPon 01-03-2024 BUN/Creatinine Ratio 15 ratio Normal 7-27 [facility] ([place] Comment on above: Performed By: #### TYRONE TREVIZO, BMP #### [address] [address] Calcium [Mass/Vol] 8.6 mg/dL Normal 8.4-10.2 [facility] ([place]) Comment on above: Performed By: #### TYRONE TREVIZO, BMP #### [address] [address] Chloride [Moles/Vol] 98 mmol/L Normal 98-107 [facility] ([place] Comment on above: Performed By: #### TYRONE TREVIZO, BMP #### [address] [address] CO2 [Moles/Vol] 35 mmol/L High 23-31 [facility] ([place] Comment on above: Performed By: #### TYRONE TREVIZO, BMP #### [address] [address] Creatinine [Mass/Vol] 0.81 mg/dL Normal 0.55-1.02 [facility] ([place]) Comment on above: Performed By: #### TYRONE TREVIZO, BMP #### [address] [address] Electrolyte Balance 9.0 mEq/L Normal 4.0-15.0 [facility] ([place] Comment on above: Performed By: #### TYRNOE TREVIZO, BMP #### [address] [address] Glucose [Mass/Vol] 99 mg/dL Normal 83-110 [facility] ([place] Comment on above: Performed By: #### G FR, PBNP, BMP #### [address] [address] Potassium [Moles/Vol] 3.9 mmol/L Normal 3.5-5.1 [facility] ([place]) Comment on above: Performed By: #### G FR, PBNP, BMP #### [address] [address] Sodium [Moles/Vol] 142 mmol/L Normal 136-145 [facility] ([place] Comment on above: Performed By: #### G FR, PBNP, BMP #### [address] [address] Urea nitrogen [Mass/Vol] 12 mg/dL Normal 7-18 [facility] [place] Comment on above: Performed By: #### G FR, PBNP, BMP #### [address] [address] CBCon 01-03-2024 Erythrocyte distribution width (RBC) [Ratio] 13.5 % Normal 11.5-14.5 [facility] ([place] Comment on above: Performed By: #### G FR, PBNP, BMP #### [address] [address] Hematocrit (Bld) [Volume fraction] 46.6 % Normal 37.0-47.0 [facility] [place] Comment on above: Performed By: #### G FR, PBNP, BMP #### [address] [address] Hgb 15.7 G/dL Normal 12.0-16.0 [facility] [place] Comment on above: Performed By: #### G FR, PBNP, BMP #### [address] [address] MCH (RBC) [Entitic mass] 31.2 pg Normal 27.0-31.2 [facility] [place] Comment on above: Performed By: #### TYRONE TREVIZO BMP #### [address] [address] MCHC 33.7 G/dL Normal 33.0-37.0 [facility] [place] Comment on above: Performed By: #### TYRONE TREVIZO, BMP #### [address] [address] MCV (RBC) [Entitic vol] 92.5 fL Normal 80.0-94.0 [facility] ([place] Comment on above: Performed By: #### TYRONE TREVIZO BMP #### [address] [address] Platelet 167 10 3/mcL Normal 130-400 [facility] ([place] Comment on above: Performed By: #### TYRONE TREVIZO BMP #### [address] [address] Platelet mean volume (Bld) [Entitic vol] 8.5 fL Normal 7.4-10.4 [facility] ([place] Comment on above: Performed By: #### TYRONE TREVIZO BMP #### [address] [address] RBC 5.04 10 6/mcL Normal 4.20-5.40 [facility] ([place] Comment on above: Performed By: #### TYRONE TREVIZO, BMP #### [address] [address] WBC 6.7 10 3/mcL Normal 4.6-10.8 [facility] ([place] Comment on above: Performed By: #### TYRONE TREVIZO, BMP #### [address] [address] CVFLURVon 01-03-2024 FLU A PCR Negative Normal Negative [facility] ([place] Comment on above: Performed By: #### TYRONE TREVIZO, BMP #### [address] [address] FLU B PCR Negative Normal Negative [facility] ([place] Comment on above: Performed By: #### G TYRONE GROVES BMP #### [address] [place], [place] [address] RSV PCR Negative Normal Negative [facility] ([place] Comment on above: Performed By: #### G TYRONE GROVES BMP #### [address] [place], [place] [address] SARS-CoV-2 (COVID-19) RNA RICH+probe Ql (Unsp spec) Negative Normal Negative [facility] ([place] Comment on above: Result Comment: Resu lts from the Xpert Xpress CoV-2/Flu/RSV plus test should be correlated with the clinical history, epidemiological data, and other data available to the clinical evaluating the patient. Performance of the Xpert Xpress CoV-2/Flu/RSV plus test has only been established in nasopharyngeal swab specimen. Erroneous test results might occur from improper specimen collection, failure to follow the recommended sample collection, handling and storage procedures, technical error, or sample mix-up. False negative results may occur if a virus is present at a level below the analytical limit of detection. Viral nucleic acid may persist in vivo, independent of virus viability. Detection of analyte target(s) does not imply that the corresponding virus(es) are infectious or are the causative agents for clinical symptoms. Recent patient exposure to FluMist or other live attenuated influenza vaccines may cause inaccurate positive results. Performed By: #### G TYRONE GROVES BMP #### [address] [place], [place] [address] LABORATORYOrdered By: Mike Ngo on 01-03-2024 Base Excess 4.9 mmol/L Invalid Interpretation Code AO Chemistry S CO2 [Moles/Vol] 34.9 mmol/L High 22.0 - 30.0 mmol/L AO Chemistry S HCO3 (Bld) [Moles/Vol] 33.0 mmol/L High 21.0 - 29.0 mmol/L AO Chemistry S Oxygen (Bld) [Partial pressure] 57.7 mm[Hg] Low 74.0 - 108.0 mm Hg AO Chemistry S pCO2 62.3 mm[Hg] High 32.0 - 46.0 mm Hg AO Chemistry S pH (Bld) 7.342 [pH] Low 7.380 - 7.460 AO Chemistry S LABORATORYOrdered By: SYSTEM SYSTEM on 01-03-2024 Basophil, Absolute 0.1 103/mcL Normal 0.0 - 0.2 10^3/mcL AO Workflow SS Basophils/100 WBC (Bld) 0.9 % Normal 0.0 - 2.5 % AO Workflow SS Eosinophil, Absolute 0.0 103/mcL Normal 0.0 - 0 .4 10^3/mcL AO Workflow SS Eosinophils/100 WBC (Bld) 0.5 % Normal 0.0 - 7.0 % AO Workflow SS Erythrocyte distribution width (RBC) [Ratio] 13.5 % Normal 11.5 - 14.5 % AO Workflow SS GFR/1.73 sq M.predicted among blacks MDRD (S/P/Bld) [Vol rate/Area] 85 ml/min/1.73sqm Invalid Interpretation Code AO Chemistry S Comment on above: Interpretive Data: GFR Population mean for , Non- Americans Ages 20-29 = 116 mL/min/1.73 sq.m. Ages 30-39 = 107 mL/min/1.73 sq.m. Ages 40-49 = 99 mL/min/1.73 sq.m. Ages 50-59 = 93 mL/min/1.73 sq.m. Ages 60-69 = 85 mL/min/1.73 sq.m. Ages 70+ = 75 mL/min/1.73 sq.m. Chronic Kidney Disease: Less than 60 mL/min/1.73 square meters End Stage Renal Disease: Less than 15 mL/min/1.73 square meters GFR/1.73 sq M.predicted among non-blacks MDRD (S/P/Bld) [Vol rate/Area] 70 ml/min/1.73sqm Invalid Interpretation Code AO Chemistry S Comment on above: Interpretive Data: GFR Population mean for , Non- Americans Ages 20-29 = 116 mL/min/1.73 sq.m. Ages 30-39 = 107 mL/min/1.73 sq.m. Ages 40-49 = 99 mL/min/1.73 sq.m. Ages 50-59 = 93 mL/min/1.73 sq.m. Ages 60-69 = 85 mL/min/1.73 sq.m. Ages 70+ = 75 mL/min/1.73 sq.m. Chronic Kidney Disease: Less than 60 mL/min/1.73 square meters End Stage Renal Disease: Less than 15 mL/min/1.73 square meters Hematocrit (Bld) [Volume fraction] 46.6 % Normal 37.0 - 47.0 % AO Workflow SS Hemoglobin (Bld) [Mass/Vol] 15.7 G/dL Normal 12.0 - 16.0 G/dL AO Workflow SS Lymphocyte, Absolute 1.1 103/mcL Normal 0.8 - 3 .9 10^3/mcL AO Workflow SS Lymphocytes/100 WBC (Bld) 17.1 % Normal 10.0 - 50.0 % AO Workflow SS MCH (RBC) [Entitic mass] 31.2 pg Normal 27.0 - 31.2 pg AO Workflow SS MCHC 33.7 G/dL Normal 33.0 - 37.0 G/dL AO Workflow SS MCV (RBC) [Entitic vol] 92.5 fL Normal 80.0 - 94.0 fL AO Workflow SS Monocyte distribution width Auto (Bld) [Entitic vol] 20.27 1 High 0.00 - 20.00 AO Workflow SS Comment on above: Result Comment: For adults in ED, MDW>20.0 may be associated with a higher risk of sepsis during the first 12hrs of hospital admission Monocyte, Absolute 1.0 103/mcL Normal 0.2 - 1.0 10^3/mcL AO Workflow SS Monocytes/100 WBC (Bld) 14.7 % High 1.7 - 13.0 % AO Workflow SS Neutrophil, Absolute 4.4 103/mcL Normal 2.9 - 6 .2 10^3/mcL AO Workflow SS Neutrophils/100 WBC (Bld) 66.8 % Normal 37.0 - 80.0 % AO Workflow SS Platelet mean volume (Bld) [Entitic vol] 8.5 fL Normal 7.4 - 10.4 fL AO Workflow SS Platelets (Bld) [#/Vol] 167 103/mcL Normal 130 - 400 10^3/mcL AO Workflow SS RBC (Bld) [#/Vol] 5.04 106/mcL Normal 4.20 - 5.4 0 10^6/mcL AO Workflow SS WBC (Bld) [#/Vol] 6.7 103/mcL Normal 4.6 - 10.8 10^3/mcL AO Workflow SS LABORATORYOrdered By: Dee Bullard on 01-03-2024 Calcium [Mass/Vol] 8.6 mg/dL Normal 8.4 - 10. 2 mg/dL AO Chemistry S Chloride [Moles/Vol] 98 mmol/L Normal 98 - 10 7 mmol/L AO Chemistry S CO2 [Moles/Vol] 35 mmol/L High 23 - 31 mmol/L AO Chemistry S Creatinine [Mass/Vol] 0.81 mg/dL Normal 0.55 - 1.02 mg/dL AO Chemistry S Electrolyte Balance 9.0 mEq/L Normal 4.0 - 15 .0 mEq/L AO Chemistry S Glucose [Mass/Vol] 99 mg/dL Normal 83 - 110 mg/dL AO Chemistry S Lactate [Moles/Vol] 0.8 mmol/L Normal 0.4 - 2. 0 mmol/L AO Chemistry S Potassium [Moles/Vol] 3.9 mmol/L Normal 3.5 - 5.1 mmol/L AO Chemistry S Sodium [Moles/Vol] 142 mmol/L Normal 136 - 145 mmol/L AO Chemistry S Troponin I.cardiac DL <= 0.01 ng/mL [Mass/Vol] 8 ng/L Normal 0 - 51 ng/L AO Chemistry S Comment on above: Interpretive Data: H igh Sensitive Troponin I Reference Ranges: Female: 0-51 ng/L Male: 0-76 ng/L Testing performed on [employer] using a homogeneous sandwich chemiluminescent immunoassay based on Digitick technology. Urea nitrogen [Mass/Vol] 12 mg/dL Normal 7 - 18 mg/dL AO Chemistry S Urea nitrogen/Creatinine [Mass ratio] 15 ratio Normal 7 - 27 ratio AO Chemistry S LABORATORYOrdered By: Maria Ines Ni on 01-03-2024 FLUAV RNA RICH+probe Ql (Resp) Negative (01/03/24 12:06 PM) Normal Negative AO Auto Urine SS FLUBV RNA RICH+probe Ql (Resp) Negative (01/03/24 12:06 PM) Normal Negative AO Auto Urine SS RSV RNA RICH+probe Ql (Resp) Negative (01/03/24 12:06 PM) Normal Negative AO Auto Urine SS SARS-CoV-2 (COVID-19) RNA RICH+probe Ql (Resp) Negative 3 (01/03/24 12:06 PM) Normal Negative AO Auto Urine SS Comment on above: Interpretive Data: R esults from the Xpert Xpress CoV-2/Flu/RSV plus test should be correlated with the clinical history, epidemiological data, and other data available to the clinical evaluating the patient. Performance of the Xpert Xpress CoV-2/Flu/RSV plus test has only been established in nasopharyngeal swab specimen. Erroneous test results might occur from improper specimen collection, failure to follow the recommended sample collection, handling and storage procedures, technical error, or sample mix-up. False negative results may occur if a virus is present at a level below the analytical limit of detection. Viral nucleic acid may persist in vivo, independent of virus viability. Detection of analyte target(s) does not imply that the corresponding virus(es) are infectious or are the causative agents for clinical symptoms. Recent patient exposure to FluMist or other live attenuated influenza vaccines may cause inaccurate positive results. LACon 01-03-2024 Lactic Acid Lvl 0.8 mmol/L Normal 0.4-2.0 [facility] Comment on above: Performed By: #### G TYRONE GROVES, SILVANA #### [address] [address] No Panel Informationon 01-02 Microscopic examination of blood, culture Culture has been received in lab and is no growth to date. Routine cultures are held for 5 days. [facility] 01-03-2024 High Sensitivity Troponin I 8 ng/L Normal 0-51 [facility] Comment on above: Result Comment: High Sensitive Troponin I Reference Ranges: Female: 0-51 ng/L Male: 0-76 ng/L Testing performed on [employer] using a homogeneous sandwich chemiluminescent immunoassay based on Digitick technology. Performed By: #### G TYRONE GROVES, BMP #### [address] [address] XR CHEST 1 VIEWon 01-03-2024 XR CHEST 1 VIEW ORIGINAL EXAMINATION: ONE XRAY VIEW OF THE CHEST 01/03/2024 12:43 pm COMPARISON: 05/07/2021, CT thorax 09/30/2023 HISTORY: ORDERING SYSTEM PROVIDED HISTORY: Reason for Exam: sob Shortness of breath FINDINGS: The cardiomediastinal silhouette appears unchanged. The aorta is atherosclerotic. Bilateral breast implants compromise the evaluation. No focal consolidation, large effusion, vascular congestion, or pneumothorax. Surgical change seen in the spine. IMPRESSION: No acute radiographic findings. Interpreted by: Benjie Call MD Preliminary Report By: Benjie Call MD Electronically signed By Benjie Call MD Dictated Date: 01/03/2024 12:51:08 PM Prelim Date: 01/03/2024 12:52:08 PM Sign Date: 01/03/2024 12:52:08 PM Ordering Provider: JACKIE DUBOSE [facility] ([place]) LABORATORYOrdered By: Florencia demarco on 12-31-2023 INR Coag (Bld) [Relative time] 2.2 {INR} [facility] LABORATORYOrdered By: Tony Brumfield on 12-23-2023 INR Coag (Bld) [Relative time] 1.6 {INR} [facility] LABORATORYOrdered By: Florencia demarco on 12-09-2023 INR Coag (Bld) [Relative time] 3.6 {INR} [facility] CT THORAX SCREENING W/O CONT RASTon 10-01-2023 CT THORAX SCREENING W/O CONTRAST ORIGINAL EXAMINATION: LOW DOSE SCREENING CT OF THE CHEST WITHOUT CONTRAST09/30/2023 4:24 pm TECHNIQUE: Low dose lung cancer screening CT of the chest was performed without the administration of intravenous contrast. Multiplanar reformatted images are provided for review. Automated exposure control, iterative reconstruction, and/or weight based adjustment of the mA/kV was utilized to reduce the radiation dose to as low as reasonably achievable. COMPARISON: 07/05/2023, 10/01/2022 HISTORY: ORDERING SYSTEM PROVIDED HISTORY: Reason for Exam: SCREENING 53 pack-year smoking history FINDINGS: The heart is normal in size. Atherosclerosis seen of the coronary arteries and aorta. The central pulmonary arteries are large in caliber. No lymphadenopathy is visible on this unenhanced exam. Asymmetric atrophy of the left kidney noted. The abdomen is not evaluated in detail. Emphysema. No pulmonary consolidation is identified. No pneumothorax or pleural effusion.Region of scarring in the posterior left upper lobe is similar to the prior exam. 2 mm left lower lobe nodule seen image 66, unchanged. Pneumatocele identified in the right lower lobe, unchanged. A 3 mm right lower lobe nodule seen on image 66. 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 Other scattered lung nodules are unchanged. A ground-glass nodule in the right lower lobe measuring 6 mm on image 90 is unchanged. No aggressive osseous lesions visible. Degenerative changes seen in the spine. Midthoracic compression deformity is unchanged. Anterolisthesis of T1 with respect to T2 and T2 with respect to T3 is similar to the prior exam. Breast prostheses are similar to the prior exam. IMPRESSION: 1. Small lung nodules. Annual low-dose CT screening advised 2. Atherosclerosis with prominent coronary artery calcifications 3. Emphysema. Large pulmonary arteries can be a sign of pulmonary arterial hypertension Information below is for Lung nodule tracking purposes: Nodule: S3 Other Findings: P-CAC Change: No Change Recall : 1yr scr Recall Type: LDCT LungRads: 2s Interpreted by: Pedro Sheehan MD Preliminary Report By: Pedro Sheehan MD Electronically signed By Pedro Sheehan MD Dictated Date: 10/01/2023 2:05:00 PM Prelim Date: 10/01/2023 2:15:24 PM Sign Date: 10/01/2023 2:15:24 PM Ordering Provider: REBECCA Gonzalez [facility]) .Auto Diffon 09-07-2023 Basophil, Absolute 0.1 10 3/mcL Normal 0.0-0.2 [facility] ([place]) Comment on above: Performed By: #### U KARRIE, FES, PHOS, FERR #### [address] [address] #### PTH #### [address] [address] Basophils/100 WBC (Bld) 0.9 % Normal 0.0-2.5 [facility] [place] Comment on above: Performed By: #### U KARRIE, FES, PHOS, FERR #### [address] [address] #### PTH #### [address] [address] Eosinophil, Absolute 0.2 10 3/mcL Normal 0.0-0.4 [facility] ([place]) Comment on above: Performed By: #### U KARRIE, FES, PHOS, FERR #### [address] [address] #### PTH #### [address] [address] Eosinophils/100 WBC (Bld) 2.3 % Normal 0.0-7.0 [facility] ([place]) Comment on above: Performed By: #### U KARRIE, FES, PHOS, FERR #### [address] [address] #### PTH #### [address] [address] Lymphocyte, Absolute 1.4 10 3/mcL Normal 0.8-3.9 [facility] ([place]) Comment on above: Performed By: #### U KARRIE, FES, PHOS, FERR #### [address] [address] #### PTH #### [address] [address] Lymphocytes/100 WBC (Bld) 18.9 % Normal 10.0-50.0 [facility] ([place]) Comment on above: Performed By: #### U KARRIE, FES, PHOS, FERR #### [address] [address] #### PTH #### [address] [address] Monocyte, Absolute 0.5 10 3/mcL Normal 0.2-1.0 [facility] ([place]) Comment on above: Performed By: #### U KARRIE, FES, PHOS, FERR #### [address] [address] #### PTH #### [address] [address] Monocytes/100 WBC (Bld) 7.0 % Normal 1.7-13.0 [facility] ([place]) Comment on above: Performed By: #### U KARRIE, FES, PHOS, FERR #### [address] [address] #### PTH #### [address] [address] Neutrophils/100 WBC (Bld) 70.9 % Normal 37.0-80.0 [facility] [place] Comment on above: Performed By: #### U KARRIE, FES, PHOS, FERR #### [address] [address] #### PTH #### [address] [address] .GFRon 09-07-2023 GFR 91 ml/min/1.73sqm Normal [facility] [place] Comment on above: Result Comment: GFR Population mean for , Non- Americans Ages 20-29 = 116 mL/min/1.73 sq.m. Ages 30-39 = 107 mL/min/1.73 sq.m. Ages 40-49 = 99 mL/min/1.73 sq.m. Ages 50-59 = 93 mL/min/1.73 sq.m. Ages 60-69 = 85 mL/min/1.73 sq.m. Ages 70+ = 75 mL/min/1.73 sq.m. Chronic Kidney Disease: Less than 60 mL/min/1.73 square meters End Stage Renal Disease: Less than 15 mL/min/1.73 square meters Performed By: #### U KARRIE, FES, PHOS, FERR #### [address] [address] #### PTH #### [address] [address] GFR Non- 75 ml/min/1.73sqm Normal [facility] [place] Comment on above: Result Comment: GFR Population mean for , Non- Americans Ages 20-29 = 116 mL/min/1.73 sq.m. Ages 30-39 = 107 mL/min/1.73 sq.m. Ages 40-49 = 99 mL/min/1.73 sq.m. Ages 50-59 = 93 mL/min/1.73 sq.m. Ages 60-69 = 85 mL/min/1.73 sq.m. Ages 70+ = 75 mL/min/1.73 sq.m. Chronic Kidney Disease: Less than 60 mL/min/1.73 square meters End Stage Renal Disease: Less than 15 mL/min/1.73 square meters Performed By: #### U KARRIE, FES, PHOS, FERR #### [place] [address] #### PTH #### [place] [address] .NEUABSon 09-07-2023 Neutrophil, Absolute 5.3 10 3/mcL Normal 2.9-6.2 [facility] ([place]) Comment on above: Performed By: #### U KARRIE, FES, PHOS, FERR #### [address] [address] #### PTH #### [place] [address] A1Con 09-07-2023 HbA1c (Bld) [Mass fraction] 5.9 % Normal 4.3-6.4 [facility] [place] Comment on above: Performed By: #### U KARRIE, FES, PHOS, FERR #### [place] [id number] #### PTH #### [place] [address] CBCon 09-07-2023 Erythrocyte distribution width (RBC) [Ratio] 14.5 % Normal 11.5-14.5 [facility] [place] Comment on above: Performed By: #### U KARRIE, FES, PHOS, FERR #### [place] [address] #### PTH #### [place] [address] Hematocrit (Bld) [Volume fraction] 46.9 % Normal 37.0-47.0 [facility] [place] Comment on above: Performed By: #### U KARRIE, FES, PHOS, FERR #### [address] [address] #### PTH #### [place] [address] Hgb 15.8 G/dL Normal 12.0-16.0 [facility] [place] Comment on above: Performed By: #### U KARRIE, FES, PHOS, FERR #### [address] [address] #### PTH #### [place] [address] MCH (RBC) [Entitic mass] 31.7 pg High 27.0-31.2 [facility] ([place]) Comment on above: Performed By: #### U KARRIE, FES, PHOS, FERR #### [place] [address] #### PTH #### [place] [address] MCHC 33.7 G/dL Normal 33.0-37.0 [facility] [place] Comment on above: Performed By: #### U KARRIE, FES, PHOS, FERR #### [place] [address] #### PTH #### [place] [address] MCV (RBC) [Entitic vol] 94.0 fL Normal 80.0-94.0 [facility] [place] Comment on above: Performed By: #### U KARRIE, FES, PHOS, FERR #### [place] [address] #### PTH #### [place] [address] Platelet 230 10 3/mcL Normal 130-400 [facility] [place] Comment on above: Performed By: #### U KARRIE, FES, PHOS, FERR #### [place] [address] #### PTH #### [place] [address] Platelet mean volume (Bld) [Entitic vol] 8.6 fL Normal 7.4-10.4 [facility] [place] Comment on above: Performed By: #### U KARRIE, FES, PHOS, FERR #### [place] [address] #### PTH #### [address] [address] RBC 4.99 10 6/mcL Normal 4.20-5.40 [facility] [place] Comment on above: Performed By: #### U KARRIE, FES, PHOS, FERR #### [place] [address] #### PTH #### [place] [address] WBC 7.4 10 3/mcL Normal 4.6-10.8 [facility] [place] Comment on above: Performed By: #### U KARRIE, FES, PHOS, FERR #### [place] [address] #### PTH #### [place] [address] CMPon 09-07-2023 Albumin Level 3.8 G/dL Normal 3.4-4.8 [facility] [place] Comment on above: Performed By: #### U KARRIE, FES, PHOS, FERR #### [place] [address] #### PTH #### [place] [address] Albumin/Globulin [Mass ratio] 1.0 {ratio} Low 1.1-2.5 [facility] [place] Comment on above: Performed By: #### U KARRIE, FES, PHOS, FERR #### [place] [address] #### PTH #### [place] [address] ALP [Catalytic activity/Vol] 94 U/L Normal 40-135 [facility] [place] Comment on above: Performed By: #### U KARRIE, FES, PHOS, FERR #### [address] [address] #### PTH #### [address] [address] ALT [Catalytic activity/Vol] 26 U/L Normal 14-59 [facility] ([place] Comment on above: Performed By: #### U KARRIE, FES, PHOS, FERR #### [place] [address] #### PTH #### [address] [address] AST [Catalytic activity/Vol] 18 U/L Normal 10-40 [facility] [place] Comment on above: Performed By: #### U KARRIE, FES, PHOS, FERR #### [place] [address] #### PTH #### [place] [address] Bili Total 0.6 mg/dL Normal 0.2-1.0 [facility] [place] Comment on above: Result Comment: Use of this assay is not recommended for patients undergoing treatment with eltrombopag due to the potential for falsely elevated results. Performed By: #### U KARRIE, FES, PHOS, FERR #### [place] [address] #### PTH #### [address] [address] BUN/Creatinine Ratio 17 ratio Normal 7-27 [facility] ([place]) Comment on above: Performed By: #### U KARRIE, FES, PHOS, FERR #### [place] [address] #### PTH #### [place] [address] Calcium [Mass/Vol] 9.0 mg/dL Normal 8.4-10.2 [facility] ([place]) Comment on above: Performed By: #### U KARRIE, FES, PHOS, FERR #### [place] [address] #### PTH #### [address] [address] Chloride [Moles/Vol] 100 mmol/L Normal 98-107 [facility] ([place] Comment on above: Performed By: #### U KARRIE, FES, PHOS, FERR #### [address] [address] #### PTH #### [address] [address] CO2 [Moles/Vol] 37 mmol/L High 23-31 [facility] [place] Comment on above: Performed By: #### U KARRIE, FES, PHOS, FERR #### [address] [address] #### PTH #### [address] [address] Creatinine [Mass/Vol] 0.76 mg/dL Normal 0.55-1.02 [facility] ([place]) Comment on above: Performed By: #### U KARRIE, FES, PHOS, FERR #### [address] [address] #### PTH #### [address] [address] Electrolyte Balance 13.0 mEq/L Normal 4.0-15.0 [facility] ([place]) Comment on above: Performed By: #### U KARRIE, FES, PHOS, FERR #### [place] [address] #### PTH #### [place] [address] Globulin 3.7 G/dL Normal [facility] [place] Comment on above: Performed By: #### U KARRIE, FES, PHOS, FERR #### [address] [address] #### PTH #### [place] [address] Glucose [Mass/Vol] 106 mg/dL Normal 83-110 [facility] ([place]) Comment on above: Performed By: #### U KARRIE, FES, PHOS, FERR #### [address] [address] #### PTH #### [address] [address] Potassium [Moles/Vol] 5.1 mmol/L Normal 3.5-5.1 [facility] ([place]) Comment on above: Performed By: #### U KARRIE, FES, PHOS, FERR #### [place] [address] #### PTH #### [address] [address] Sodium [Moles/Vol] 150 mmol/L High 136-145 [facility] ([place]) Comment on above: Performed By: #### U KARRIE, FES, PHOS, FERR #### [place] [address] #### PTH #### [place] [address] Total Protein 7.5 G/dL Normal 6.4-8.2 [facility] [place] Comment on above: Performed By: #### U KARRIE, FES, PHOS, FERR #### [place] [address] #### PTH #### [place] [address] Urea nitrogen [Mass/Vol] 13 mg/dL Normal 7-18 [facility] [place] Comment on above: Performed By: #### U KARRIE, FES, PHOS, FERR #### [place] [address] #### PTH #### [address] [address] Jamil 09-07-2023 Ferritin [Mass/Vol] 252.0 ng/mL Normal 8.0-252.0 [facility] ([place]) Comment on above: Performed By: #### U KARRIE, FES, PHOS, FERR #### [place] [address] #### PTH #### [address] [address] FESon 09-07-2023 Iron [Mass/Vol] 96 ug/dL Normal 50-170 [facility] ([place] Comment on above: Performed By: #### U KARRIE, FES, PHOS, FERR #### [place] [address] #### PTH #### [place] [address] Iron Sat 30 % Normal [facility] ([place] Comment on above: Performed By: #### U KARRIE, FES, PHOS, FERR #### [place] [address] #### PTH #### [place] [address] TIBC 319 mcg/dL Normal 250-450 [facility] ([place] Comment on above: Performed By: #### U KARRIE, FES, PHOS, FERR #### [place] [address] #### PTH #### [place] [address] LABORATORYOrdered By: Karen Andrade on 09-07-2023 Creatinine (U) [Mass/Vol] mg/dL Low 28.0 - 117.0 mg/dL AO ADM SS Protein (U) [Mass/Vol] mg/dL Normal 0 - 11 mg/dL AO ADM SS U Ratio Prot/Creat Unable to Calculate Invalid Interpretation Code AO Chemistry S Comment on above: Result Comment: Unab le to calculate this test result accurately. Results used to calculate this test are outside the reportable range. LABORATORYOrdered By: SYSTEM SYSTEM on 09-07-2023 Ferritin [Mass/Vol] 252.0 ng/mL Normal 8.0 - 25 2.0 ng/mL AO ADM SS Iron [Mass/Vol] 96 ug/dL Normal 50 - 170 mcg/dL AO ADM SS Iron binding capacity [Mass/Vol] 319 mcg/dL Normal 250 - 450 mcg/dL AO ADM SS Iron Sat 30 % Invalid Interpretation Code AO ADM SS Parathyrin.intact [Mass/Vol] 182.0 pg/mL High 18.5 - 88.0 pg/mL AH ADM SS Phosphate [Mass/Vol] 3.3 mg/dL Normal 2.3 - 4 .1 mg/dL AO ADM SS Uric Acid Lvl 4.9 mg/dL Normal 2.6 - 6.2 mg/dL AO ADM SS 25-hydroxyvitamin D3 [Mass/Vol] 50.7 ng/mL Invalid Interpretation Code AO ADM SS Comment on above: Interpretive Data: I nterpretive Values Based on Total 25(OH) Vitamin D: Deficient <20 ng/mL Insufficient 20 - <30 ng/mL Sufficient 30-100 ng/mL Albumin BCP dye [Mass/Vol] 3.8 G/dL Normal 3.4 - 4.8 G/dL AO ADM SS Albumin/Globulin [Mass ratio] 1.0 {ratio} Low 1.1 - 2.5 ratio AO ADM SS ALP [Catalytic activity/Vol] 94 U/L Normal 40 - 135 U/L AO ADM SS ALT With P-5'-P [Catalytic activity/Vol] 26 U/L Normal 14 - 59 U/L AO ADM SS AST With P-5'-P [Catalytic activity/Vol] 18 U/L Normal 10 - 40 U/L AO ADM SS Basophil, Absolute 0.1 103/mcL Normal 0.0 - 0.2 10^3/mcL AO Workflow SS Basophils/100 WBC (Bld) 0.9 % Normal 0.0 - 2.5 % AO Workflow SS Bilirubin [Mass/Vol] 0.6 mg/dL Normal 0.2 - 1 .0 mg/dL AO ADM SS Comment on above: Interpretive Data: U se of this assay is not recommended for patients undergoing treatment with eltrombopag due to the potential for falsely elevated results. Calcium [Mass/Vol] 9.0 mg/dL Normal 8.4 - 10. 2 mg/dL AO ADM SS Chloride [Moles/Vol] 100 mmol/L Normal 98 - 10 7 mmol/L AO ADM SS CO2 [Moles/Vol] 37 mmol/L High 23 - 31 mmol/L AO ADM SS Creatinine [Mass/Vol] 0.76 mg/dL Normal 0.55 - 1.02 mg/dL AO ADM SS Electrolyte Balance 13.0 mEq/L Normal 4.0 - 15 .0 mEq/L AO ADM SS Eosinophil, Absolute 0.2 103/mcL Normal 0.0 - 0 .4 10^3/mcL AO Workflow SS Eosinophils/100 WBC (Bld) 2.3 % Normal 0.0 - 7.0 % AO Workflow SS Erythrocyte distribution width (RBC) [Ratio] 14.5 % Normal 11.5 - 14.5 % AO Workflow SS GFR/1.73 sq M.predicted among blacks MDRD (S/P/Bld) [Vol rate/Area] 91 ml/min/1.73sqm Invalid Interpretation Code AO Chemistry S Comment on above: Interpretive Data: GFR Population mean for , Non- Americans Ages 20-29 = 116 mL/min/1.73 sq.m. Ages 30-39 = 107 mL/min/1.73 sq.m. Ages 40-49 = 99 mL/min/1.73 sq.m. Ages 50-59 = 93 mL/min/1.73 sq.m. Ages 60-69 = 85 mL/min/1.73 sq.m. Ages 70+ = 75 mL/min/1.73 sq.m. Chronic Kidney Disease: Less than 60 mL/min/1.73 square meters End Stage Renal Disease: Less than 15 mL/min/1.73 square meters GFR/1.73 sq M.predicted among non-blacks MDRD (S/P/Bld) [Vol rate/Area] 75 ml/min/1.73sqm Invalid Interpretation Code AO Chemistry S Comment on above: Interpretive Data: GFR Population mean for , Non- Americans Ages 20-29 = 116 mL/min/1.73 sq.m. Ages 30-39 = 107 mL/min/1.73 sq.m. Ages 40-49 = 99 mL/min/1.73 sq.m. Ages 50-59 = 93 mL/min/1.73 sq.m. Ages 60-69 = 85 mL/min/1.73 sq.m. Ages 70+ = 75 mL/min/1.73 sq.m. Chronic Kidney Disease: Less than 60 mL/min/1.73 square meters End Stage Renal Disease: Less than 15 mL/min/1.73 square meters Globulin 3.7 G/dL Invalid Interpretation Code AO ADM SS Glucose [Mass/Vol] 106 mg/dL Normal 83 - 110 mg/dL AO ADM SS HbA1c (Bld) [Mass fraction] 5.9 % Normal 4.3 - 6.4 % AO ADM SS Hematocrit (Bld) [Volume fraction] 46.9 % Normal 37.0 - 47.0 % AO Workflow SS Hemoglobin (Bld) [Mass/Vol] 15.8 G/dL Normal 12.0 - 16.0 G/dL AO Workflow SS Lymphocyte, Absolute 1.4 103/mcL Normal 0.8 - 3 .9 10^3/mcL AO Workflow SS Lymphocytes/100 WBC (Bld) 18.9 % Normal 10.0 - 50.0 % AO Workflow SS MCH (RBC) [Entitic mass] 31.7 pg High 27.0 - 31.2 pg AO Workflow SS MCHC 33.7 G/dL Normal 33.0 - 37.0 G/dL AO Workflow SS MCV (RBC) [Entitic vol] 94.0 fL Normal 80.0 - 94.0 fL AO Workflow SS Monocyte, Absolute 0.5 103/mcL Normal 0.2 - 1.0 10^3/mcL AO Workflow SS Monocytes/100 WBC (Bld) 7.0 % Normal 1.7 - 13.0 % AO Workflow SS Neutrophil, Absolute 5.3 103/mcL Normal 2.9 - 6 .2 10^3/mcL AO Workflow SS Neutrophils/100 WBC (Bld) 70.9 % Normal 37.0 - 80.0 % AO Workflow SS Platelet mean volume (Bld) [Entitic vol] 8.6 fL Normal 7.4 - 10.4 fL AO Workflow SS Platelets (Bld) [#/Vol] 230 103/mcL Normal 130 - 400 10^3/mcL AO Workflow SS Potassium [Moles/Vol] 5.1 mmol/L Normal 3.5 - 5.1 mmol/L AO ADM SS Protein [Mass/Vol] 7.5 G/dL Normal 6.4 - 8.2 G/dL AO ADM SS RBC (Bld) [#/Vol] 4.99 106/mcL Normal 4.20 - 5.4 0 10^6/mcL AO Workflow SS Sodium [Moles/Vol] 150 mmol/L High 136 - 145 mmol/L AO ADM SS TSH Qn 1.50 m[IU]/L Normal 0.36 - 3.74 mcIU/mL AO ADM SS Urea nitrogen [Mass/Vol] 13 mg/dL Normal 7 - 18 mg/dL AO ADM SS Urea nitrogen/Creatinine [Mass ratio] 17 ratio Normal 7 - 27 ratio AO ADM SS WBC (Bld) [#/Vol] 7.4 103/mcL Normal 4.6 - 10.8 10^3/mcL AO Workflow SS LABORATORYOrdered By: Elisabet Melgar on 09-07-2023 Cholesterol [Mass/Vol] 183 mg/dL Normal 0 - 2 00 mg/dL AO ADM SS Comment on above: Interpretive Data: C holesterol Reference Interval: Less than 200 Desirable 200-239 Borderline high risk 240 and above High risk Cholesterol in HDL [Mass/Vol] 83 mg/dL High 40 - 60 mg/dL AO ADM SS Cholesterol in LDL [Mass/Vol] 81 mg/dL Normal 0 - 130 mg/dL AO ADM SS Triglyceride [Mass/Vol] 93 mg/dL Normal 0 - 150 mg/dL AO ADM SS Comment on above: Interpretive Data: T riglyceride Reference Interval: Less than 150 Normal 150-199 Borderline high risk 200-499 High risk 500 or higher Very high risk LIPIDon 09-07-2023 Cholesterol [Mass/Vol] 183 mg/dL Normal 0-200 [facility] ([place]) Comment on above: Result Comment: Chol esterol Reference Interval: Less than 200 Desirable 200-239 Borderline high risk 240 and above High risk Performed By: #### U KARRIE, FES, PHOS, FERR #### [address] [address] #### PTH #### [address] [address] Cholesterol in HDL [Mass/Vol] 83 mg/dL High 40-60 [facility] ([place] Comment on above: Performed By: #### U KARRIE, FES, PHOS, FERR #### [address] [address] #### PTH #### [address] [address] Cholesterol in LDL [Mass/Vol] 81 mg/dL Normal 0-130 [facility] ([place]) Comment on above: Performed By: #### U KARRIE, FES, PHOS, FERR #### [address] [address] #### PTH #### [address] [address] Triglyceride [Mass/Vol] 93 mg/dL Normal 0-150 [facility] ([place]) Comment on above: Result Comment: Trig lyceride Reference Interval: Less than 150 Normal 150-199 Borderline high risk 200-499 High risk 500 or higher Very high risk Performed By: #### U KARRIE, FES, PHOS, FERR #### [address] [address] #### PTH #### [place] [address] PHOSon 09-07-2023 Phosphate [Mass/Vol] 3.3 mg/dL Normal 2.3-4.1 [facility] ([place]) Comment on above: Performed By: #### U KARRIE, FES, PHOS, FERR #### [place] [address] #### PTH #### [place] [address] PTHon 09-07-2023 PTH, Intact 182.0 pg/mL High 18.5-88.0 [facility] ([place] Comment on above: Performed By: #### U KARRIE, FES, PHOS, FERR #### [place] [address] #### PTH #### [place] [address] RPCURon 09-07-2023 U Creatinine <13.0 Low 28.0-117.0 [facility] ([place] Comment on above: Performed By: #### G FR, PBNP, BMP #### [address] [address] U Protein <6 Normal 0-11 [facility] Comment on above: Performed By: #### G FR, PBNP, BMP #### [address] [address] U Ratio Prot/Creat Unable to Calculate Normal [facility] Comment on above: Result Comment: Unab le to calculate this test result accurately. Results used to calculate this test are outside the reportable range. Performed By: #### G FR, PBNP, BMP #### [address] [address] TSHon 09-07-2023 TSH Qn 1.50 m[IU]/L Normal 0.36-3.74 [facility] Comment on above: Performed By: #### U KARRIE, FES, PHOS, FERR #### [address] [address] #### PTH #### [place] [address] URICon 09-07-2023 Uric Acid Lvl 4.9 mg/dL Normal 2.6-6.2 [facility] Comment on above: Performed By: #### U KARRIE, FES, PHOS, FERR #### [address] [address] #### PTH #### [place] [address] VIDHon 09-07-2023 Vit. D 25-Hydroxy 50.7 ng/mL Normal [facility] Comment on above: Result Comment: Inte rpretive Values Based on Total 25(OH) Vitamin D: Deficient <20 ng/mL Insufficient 20 - <30 ng/mL Sufficient 30-100 ng/mL Performed By: #### U KARRIE, FES, PHOS, FERR #### [address] [address] #### PTH #### [place] [address] CT THORAX SCREENING W/O CONT RASTon 07-08-2023 CT THORAX SCREENING W/O CONTRAST ORIGINAL EXAMINATION: LOW DOSE SCREENING CT OF THE CHEST WITHOUT EFGYPOOB76/30/2023 3:36 pm TECHNIQUE: Low dose lung cancer screening CT of the chest was performed without the administration of intravenous contrast. Multiplanar reformatted images are provided for review. Automated exposure control, iterative reconstruction, and/or weight based adjustment of the mA/kV was utilized to reduce the radiation dose to as low as reasonably achievable. COMPARISON: None. HISTORY: ORDERING SYSTEM PROVIDED HISTORY: Reason for Exam: Lung Cancer Screening Lung Cancer Screening. SOB on exertion. 5'4, 138 lbs. 50 pack year hx. FINDINGS: The heart is normal in size. Atherosclerosis seen of the coronary arteries and aorta. The great vessels appear normal in caliber. No lymphadenopathy is visible on this unenhanced exam. No suspicious findings seen in the visualized portion of the abdomen. The abdomen is not evaluated in detail. There is moderate left renal atrophy. No pulmonary consolidation is identified. There is some linear atelectasis in lingula. There is a 2.6 cm cyst in the right lower lobe which is not significantly changed. Multiple 5 mm or less pulmonary nodules are not significantly changed. Minimal tree-in-bud opacities in the right upper lobe are not significantly changed. No pneumothorax or pleural effusion. No aggressive osseous lesions visible. Degenerative changes seen in the spine. Mild T7 compression deformity is stable. IMPRESSION: Small lung nodules. For patients with appropriate lung cancer risk, annual CT screening is recommended. Coronary artery calcifications. Moderate left renal atrophy. Information below is for Lung nodule tracking purposes: Nodule: S3 Other Findings: P-CAC Change: No Change Recall : 1yr scr Recall Type: LDCT LungRads: 2s Interpreted by: Catarino Huerta MD Preliminary Report By: Catarino Huerta MD Electronically signed By Catarino Huerta MD Dictated Date: 07/08/2023 8:37:18 AM Prelim Date: 07/08/2023 8:41:16 AM Sign Date: 07/08/2023 8:41:16 AM Ordering Provider: ELIAZAR [facility] [place] MAMMOGRAM SCREENING BILAT ERAL W/TOMOon 07-06-2023 MA MAMMOGRAM SCREENING BILATERAL W/CARTER ORIGINAL FROM: [address] [address] PROCEDURE FOR: JANENE VASQUEZ [address] [place] [id number] Home: PID#: [id number] Exam#: [id number] : 1955 Age: 67 TO: ELIAZAR BARRIOS DO [address] [place] [id number] Fax: NO FAX EXAMINATION: SCREENING DIGITAL BILATERAL MAMMOGRAM WITH TOMOSYNTHESIS, 07/05/2023 TECHNIQUE: Screening mammography of the bilateral breasts was performed with tomosynthesis. 2D standard and 3D tomosynthesis combination imaging performed through both breasts in the MLO and CC projection. Computer aided detection was utilized in the interpretation of this exam. COMPARISON: 09/04/2022 HISTORY: Screening. FINDINGS: BREAST DENSITY: Scattered fibroglandular tissue There are bilateral intact stable retropectoral breast implants. There are no significant masses or calcifications. IMPRESSION: No mammographic evidence of malignancy. Continued screening with annual mammograms is recommended. BIRADS: MAMMOGRAM BI-RADS: 2: Benign finding RECALL: 1 year screening RECALL TYPE: mammo LETTER SENT: Normal BI-RADS 1 and 2 Interpreted by: Catarino Huerta MD Preliminary Report By: Catarino Huerta MD Electronically signed By Catarino Huerta MD Dictated Date: 07/06/2023 11:21:36 AM Prelim Date: 07/06/2023 11:23:55 AM Sign Date: 07/06/2023 11:23:55 AM Ordering Provider: ELIAZAR BARRIOS [employer]: ARLEN SALVADOR RT (R) (M) (CT) letter sent: Normal BI-RADS 1 and 2 Mammogram BI-RADS: 2 Benign Normal [facility] Absolute lymphocyte countOrd ered By: Marion White on 04-30-2023 Lymphocytes Auto (Unsp spec) [#/Vol] 1.00 10*3/uL 0.83-4.51 [facility] Basophil percentageOrdered B y: Marion White on 04-30-2023 Basophils/100 WBC (Bld) 1.0 % 0-1 [facility] Bilirubin [Mass/Vol] 0.40 mg/dL 0.20-1.00 [facility] Comment on above: For patients on eltr ombopag therapy, use of Dimension [place] TBIL is not recommended. Chloride [Moles/Vol] 103 mmol/L 98-107 [facility] Eosinophils/100 WBC (Bld) 2.7 % 0-5 [facility] Glucose [Mass/Vol] 109 mg/dL 74-106 [facility] Comment on above: Fasting Glucose resu lt from 100 to 125 mg/dL suggests IMPAIRED HOMEOSTASIS per A.D.A. criteria. Neutrophils (Bld) [#/Vol] 4.7 10*3/uL 2.0-7.7 [facility] Neutrophils/100 WBC (Bld) 71.0 % 47-70 [facility] Potassium [Moles/Vol] 4.0 mmol/L 3.5-5.1 [facility] Protein [Mass/Vol] 6.1 g/dL 6.4-8.2 [facility] Sodium [Moles/Vol] 139 mmol/L 136-145 [facility] WBC (Bld) [#/Vol] 6.7 10*3/uL 4.4-11.0 [facility] Blood erythrocytes count (nu mber/volume)Ordered By: Marion Muñiz on 04-30-2023 RBC (Bld) [#/Vol] 5.41 10*6/uL 4.2-5.4 [facility] Blood hemoglobin measurement (mass/volume)Ordered By: Marion Muñiz on 04-30-2023 Hemoglobin (Bld) [Mass/Vol] 16.9 g/dL 12.0-15.0 [facility] Blood lymphocytes/100 leukoc ytesOrdered By: Marion Muñiz on 04-30-2023 Lymphocytes/100 WBC (Bld) 15.0 % 19-41 [facility] Blood monocytes/100 leukocyt esOrdered By: Antonino on 04-30-2023 Monocytes/100 WBC (Bld) 10.0 % 0-10 [facility] Blood platelet mean volumeOr dered By: Marion Muñiz on 04-30-2023 Platelet mean volume (Bld) [Entitic vol] 9.9 fL 6.2-12.0 [facility] Determination of erythrocyte mean corpuscular volume (MCV)Ordered By: Marion Muñiz on 04-30-2023 MCV (RBC) [Entitic vol] 102.2 fL 81-99 [facility] Hematocrit Auto (Bld) [Volum e fraction]Ordered By: Marion Antonino on 04-30-2023 Hematocrit (Bld) [Volume fraction] 55.3 % 37-47 [facility] INR in Blood by Coagulation assayOrdered By: Marion Muñiz on 04-30-2023 INR Coag (Bld) [Relative time] 1.2 {INR} [facility] Laboratory - Chemistry and C hemistry - challengeOrdered By: Marion Muñiz on 04-30-2023 ALP [Catalytic activity/Vol] 57 U/L 45-117 [facility] ALT [Catalytic activity/Vol] 36 U/L 13-56 [facility] CO2 [Moles/Vol] 34.0 mmol/L 21.0-32.0 [facility] Globulin (S) [Mass/Vol] 3.1 g/dL 2.2-4.2 [facility] Urea nitrogen/Creatinine [Mass ratio] 10.7 mg/mg 10-20 [facility] Laboratory - CoagulationOrde red By: Marion Muñiz on 04-30-2023 PT Coag (PPP) [Time] 15.2 s 11.7-14.9 [facility] Laboratory - Hematology and Cell countsOrdered By: Marion Muñiz on 04-30-2023 Erythrocyte distribution width (RBC) [Entitic vol] 59.6 fL 35.1-43.9 [facility] Erythrocyte distribution width (RBC) [Ratio] 15.9 % 11.6-14.6 [facility] Immature granulocytes/100 WBC (Bld) 0.300 % 0.0-0.9 [facility] Comment on above: IG% - Immature Granu locytes (promyelocytes, myelocytes and metamyelocytes) > 1% indicates that a LEFT SHIFT is Present. MCH (RBC) [Entitic mass] 31.2 pg 27.0-32.0 [facility] Nucleated RBC/100 WBC (Bld) [Ratio] 0 % 0-5 [facility] MCHC Auto (RBC) [Mass/Vol]Or dered By: Marion Muñiz on 04-30-2023 MCHC (RBC) [Mass/Vol] 30.6 g/dL 32-36 [facility] No Panel InformationOrdered By: Marion Muñiz on 04-30-2023 Estimated Creatinine Clearance Calc 45.85 ml/min [facility] Estimated GFR (MDRD) Amer 99 mL/min >60 [facility] Comment on above: GFR Calc Estimated GFR (MDRD) Non-Af Amer 82 mL/min >60 [facility] Comment on above: Non- GFR Calc Platelets bldOrdered By: Arie Muñiz on 04-30-2023 Platelets (Bld) [#/Vol] 192 10*3/uL 150-450 [facility] Serum or plasma albumin quique urement (mass/volume)Ordered By: Marion Muñiz on 04-30-2023 Albumin [Mass/Vol] 3.0 g/dL 3.2-5.0 [facility] Serum or plasma albumin/glob ulin mass ratioOrdered By: Marion Antonino on 04-30-2023 Albumin/Globulin [Mass ratio] 1.0 {ratio} 0.9-2.4 [facility] Serum or plasma calcium quique urement (mass/volume)Ordered By: Marion Muñiz on 04-30-2023 Calcium [Mass/Vol] 8.3 mg/dL 8.5-10.1 [facility] Serum or plasma creatinine m easurement (mass/volume)Ordered By: Marion Muñiz on 04-30-2023 Creatinine [Mass/Vol] 0.74 mg/dL 0.55-1.02 [facility] Comment on above: The validity of the calculated GFR & GFRAA in patients over 70 years has not been determined. Clinical correlation is essential. Serum or plasma urea nitroge n measurement (mass/volume)Ordered By: Marion Muñiz on 04-30-2023 Urea nitrogen [Mass/Vol] 8 mg/dL 7-18 [facility] Thin prep Papanicolaou smear with manual screeningOrdered By: Marion Antonino on 04-30-2023 Thin prep Papanicolaou smear with manual screening 24 U/L 15-37 [facility] Thin prep Papanicolaou smear with manual screening 2 5-15 [facility] Basophil percentageOrdered B y: Marixa Gama on 04-29-2023 Basophil percentage 4.4 mg/dL 2.5-4.9 [facility] Cholesterol [Mass/Vol] 143 mg/dL <200 [facility] Comment on above: <200 mg/dL Desirable 200-240 mg/dL Borderline >240 mg/dL High Risk Triglyceride [Mass/Vol] 60 mg/dL <199 [facility] Comment on above: The drugs N-Acetylcy steine and Metamizole may falsely depress this assay.Serum Triglycerides Reference Interval Normal <150 mg/dL Borderline high 150 - 199 mg/dL High 200 - 499 mg/dL Very High > or = 500 mg/dL Laboratory - Chemistry and C hemistry - challengeOrdered By: Marixa Gama on 04-29-2023 Magnesium [Mass/Vol] 1.9 mg/dL 1.6-2.6 [facility] No Panel InformationOrdered By: Marixa Gama on 04-29-2023 Thyroid Stimulating Hormone (TSH) 0.87 uIU/mL 0.358-3.74 [facility] Troponin I High Sensitivity 897 pg/mL 3.0-54.0 [facility] Comment on above: Critical Result(s) C alled at: 03:18:56 04/29/2023 by: NATAN ZAMORA to Paulino Arriaza RN PCU. Results read back by same. Please Note: New Test Units and Gender Specific Reference Ranges. For more information see Policy Stat Procedure [place] High Sensitivity Troponin (TNIH) and attachments. Serum or plasma cholesterol in HDL measurement (mass/volume)Ordered By: Marixa Gama on 04-29-2023 Cholesterol in HDL [Mass/Vol] 52 mg/dL >40 [facility] Comment on above: The drugs N-Acetylcy steine and Metamizole may falsely depress this assay. Reference Range HDL <40 mg/dL Low HDL Cholesterol HDL >or= 60 mg/dL High HDL Cholesterol Serum or plasma cholesterol in VLDL measurement (mass/volume)Ordered By: Marixa Gama on 04-29-2023 Cholesterol in VLDL [Mass/Vol] 12 mg/dL 5-40 [facility] Serum or plasma low density lipoprotein (LDL) cholesterol measurement (mass/volume)Ordered By: Marixa Gama on 04-29-2023 Cholesterol in LDL [Mass/Vol] 79 mg/dL 0-130 [facility] Whole blood hemoglobin A1c/t otal hemoglobin ratio (mass fraction)Ordered By: Marixa Gama on 04-29-2023 HbA1c (Bld) [Mass fraction] 5.6 % 3.8-5.6 [facility] Comment on above: Normal < 5.7 % Predi abetic 5.7 - 6.4 % Diabetic >or= 6.5 % Please note range changes. Absolute lymphocyte countOrd ered By: Silver Harris on 04-28-2023 Lymphocytes Auto (Unsp spec) [#/Vol] 1.86 10*3/uL 0.83-4.51 [facility] Basophil percentageOrdered B y: Silver Harris on 04-28-2023 Basophils/100 WBC (Bld) 0.9 % 0-1 [facility] Chloride [Moles/Vol] 98 mmol/L 98-107 [facility] Eosinophils/100 WBC (Bld) 2.0 % 0-5 [facility] Glucose [Mass/Vol] 167 mg/dL 74-106 [facility] Comment on above: Fasting Glucose resu lt greater than or equal to 126 mg/dL suggests DIABETES MELLITUS per A.D.A. criteria. Neutrophils (Bld) [#/Vol] 5.1 10*3/uL 2.0-7.7 [facility] Neutrophils/100 WBC (Bld) 64.9 % 47-70 [facility] Potassium [Moles/Vol] 3.6 mmol/L 3.5-5.1 [facility] Sodium [Moles/Vol] 138 mmol/L 136-145 [facility] WBC (Bld) [#/Vol] 7.8 10*3/uL 4.4-11.0 [facility] Blood erythrocytes count (nu mber/volume)Ordered By: Silver Harris on 04-28-2023 RBC (Bld) [#/Vol] 5.99 10*6/uL 4.2-5.4 [facility] Blood hemoglobin measurement (mass/volume)Ordered By: Silver Harris on 04-28-2023 Hemoglobin (Bld) [Mass/Vol] 18.8 g/dL 12.0-15.0 [facility] Comment on above: CRITICAL VALUE VERIF IED. CALLED TO [id number] Rosina Schaeffer.RESULTS READ BACK BY SAME . Blood lymphocytes/100 leukoc ytesOrdered By: Silver Harris on 04-28-2023 Lymphocytes/100 WBC (Bld) 23.7 % 19-41 [facility] Blood monocytes/100 leukocyt esOrdered By: Silver Harris on 04-28-2023 Monocytes/100 WBC (Bld) 8.2 % 0-10 [facility] Blood platelet mean volumeOr dered By: Silver Harris on 04-28-2023 Platelet mean volume (Bld) [Entitic vol] 10.6 fL 6.2-12.0 [facility] Determination of erythrocyte mean corpuscular volume (MCV)Ordered By: Silver Harris on 04-28-2023 MCV (RBC) [Entitic vol] 97.3 fL 81-99 [facility] Hematocrit Auto (Bld) [Volum e fraction]Ordered By: Silver Harris on 04-28-2023 Hematocrit (Bld) [Volume fraction] 58.3 % 37-47 [facility] INR in Blood by Coagulation assayOrdered By: Silver Harris on 04-28-2023 INR Coag (Bld) [Relative time] 3.3 {INR} [facility] Laboratory - Chemistry and C hemistry - challengeOrdered By: Silver Harris on 04-28-2023 CO2 [Moles/Vol] 31.0 mmol/L 21.0-32.0 [facility] Natriuretic peptide B (Bld) [Mass/Vol] 736.0 pg/mL 0-100 [facility] Urea nitrogen/Creatinine [Mass ratio] 11.3 mg/mg 10-20 [facility] Laboratory - CoagulationOrde red By: Silver Harris on 04-28-2023 PT Coag (PPP) [Time] 33.8 s 11.7-14.9 [facility] Laboratory - Hematology and Cell countsOrdered By: Silver Harris on 04-28-2023 Erythrocyte distribution width (RBC) [Entitic vol] 55.4 fL 35.1-43.9 [facility] Erythrocyte distribution width (RBC) [Ratio] 15.7 % 11.6-14.6 [facility] Immature granulocytes/100 WBC (Bld) 0.300 % 0.0-0.9 [facility] Comment on above: IG% - Immature Granu locytes (promyelocytes, myelocytes and metamyelocytes) > 1% indicates that a LEFT SHIFT is Present. MCH (RBC) [Entitic mass] 31.4 pg 27.0-32.0 [facility] Nucleated RBC/100 WBC (Bld) [Ratio] 0 % 0-5 [facility] MCHC Auto (RBC) [Mass/Vol]Or dered By: Silver Harris on 04-28-2023 MCHC (RBC) [Mass/Vol] 32.2 g/dL 32-36 [facility] No Panel InformationOrdered By: Silver Harris on 04-28-2023 Troponin I High Sensitivity 71 pg/mL 3.0-54.0 [facility] Comment on above: Please Note: New Liliam t Units and Gender Specific Reference Ranges. For more information see Policy Stat Procedure [place] High Sensitivity Troponin (TNIH) and attachments. Estimated GFR (MDRD) Amer 73 mL/min >60 [facility] Comment on above: GFR Calc Estimated GFR (MDRD) Non-Af Amer 60 mL/min >60 [facility] Comment on above: Non- GFR Calc Platelets bldOrdered By: Harry Harris on 04-28-2023 Platelets (Bld) [#/Vol] 290 10*3/uL 150-450 [facility] Serum or plasma calcium quique urement (mass/volume)Ordered By: Silver Harris on 04-28-2023 Calcium [Mass/Vol] 9.4 mg/dL 8.5-10.1 [facility] Serum or plasma creatinine m easurement (mass/volume)Ordered By: Silver Harris on 04-28-2023 Creatinine [Mass/Vol] 0.97 mg/dL 0.55-1.02 [facility] Comment on above: The validity of the calculated GFR & GFRAA in patients over 70 years has not been determined. Clinical correlation is essential. Serum or plasma urea nitroge n measurement (mass/volume)Ordered By: Silver Harris on 04-28-2023 Urea nitrogen [Mass/Vol] 11 mg/dL 7-18 [facility] Thin prep Papanicolaou smear with manual screeningOrdered By: Silver Harris on 04-28-2023 Thin prep Papanicolaou smear with manual screening 9 5-15 [facility] LABORATORYOrdered By: Lauro mccarty on 03-29-2023 Lab Performed By Lauro Salmeron [facility] Performing Location [facility] Absolute lymphocyte countOrd ered By: Dr. Ramirez on 01-18-2023 Lymphocytes Auto (Unsp spec) [#/Vol] 2.52 10*3/uL 0.83-4.51 [facility] Basophil percentageOrdered B y: Dr. Ramirez on 01-18-2023 Basophils/100 WBC (Bld) 1.0 % 0-1 [facility] Chloride [Moles/Vol] 103 mmol/L 98-107 [facility] Eosinophils/100 WBC (Bld) 2.4 % 0-5 [facility] Glucose [Mass/Vol] 116 mg/dL 74-106 [facility] Comment on above: Fasting Glucose resu lt from 100 to 125 mg/dL suggests IMPAIRED HOMEOSTASIS per A.D.A. criteria. Neutrophils (Bld) [#/Vol] 4.9 10*3/uL 2.0-7.7 [facility] Neutrophils/100 WBC (Bld) 59.3 % 47-70 [facility] Potassium [Moles/Vol] 3.9 mmol/L 3.5-5.1 [facility] Sodium [Moles/Vol] 141 mmol/L 136-145 [facility] WBC (Bld) [#/Vol] 8.3 10*3/uL 4.4-11.0 [facility] Blood erythrocytes count (nu mber/volume)Ordered By: Dr. Ramirez on 01-18-2023 RBC (Bld) [#/Vol] 5.50 10*6/uL 4.2-5.4 [facility] Blood hemoglobin measurement (mass/volume)Ordered By: Dr. Ramirez on 01-18-2023 Hemoglobin (Bld) [Mass/Vol] 17.6 g/dL 12.0-15.0 [facility] Blood lymphocytes/100 leukoc ytesOrdered By: Dr. Ramirez on 01-18-2023 Lymphocytes/100 WBC (Bld) 30.3 % 19-41 [facility] Blood monocytes/100 leukocyt esOrdered By: Dr. Ramirez on 01-18-2023 Monocytes/100 WBC (Bld) 6.8 % 0-10 [facility] Blood platelet mean volumeOr dered By: Dr. Ramirez on 01-18-2023 Platelet mean volume (Bld) [Entitic vol] 10.2 fL 6.2-12.0 [facility] Determination of erythrocyte mean corpuscular volume (MCV)Ordered By: Dr. Ramirez on 01-18-2023 MCV (RBC) [Entitic vol] 97.8 fL 81-99 [facility] Hematocrit Auto (Bld) [Volum e fraction]Ordered By: Dr. Ramirez on 01-18-2023 Hematocrit (Bld) [Volume fraction] 53.8 % 37-47 [facility] Laboratory - Chemistry and C hemistry - challengeOrdered By: Dr. Ramirez on 01-18-2023 CO2 [Moles/Vol] 30.0 mmol/L 21.0-32.0 [facility] Urea nitrogen/Creatinine [Mass ratio] 18.4 mg/mg 10-20 [facility] Laboratory - Hematology and Cell countsOrdered By: Dr. Ramirez on 01-18-2023 Erythrocyte distribution width (RBC) [Entitic vol] 47.7 fL 35.1-43.9 [facility] Erythrocyte distribution width (RBC) [Ratio] 13.2 % 11.6-14.6 [facility] Immature granulocytes/100 WBC (Bld) 0.200 % 0.0-0.9 [facility] Comment on above: IG% - Immature Granu locytes (promyelocytes, myelocytes and metamyelocytes) > 1% indicates that a LEFT SHIFT is Present. MCH (RBC) [Entitic mass] 32.0 pg 27.0-32.0 [facility] Nucleated RBC/100 WBC (Bld) [Ratio] 0 % 0-5 [facility] MCHC Auto (RBC) [Mass/Vol]Or dered By: Dr. Ramirez on 01-18-2023 MCHC (RBC) [Mass/Vol] 32.7 g/dL 32-36 [facility] No Panel InformationOrdered By: Dr. Ramirez on 01-18-2023 Estimated Creatinine Clearance Calc 55.91 ml/min [facility] Estimated GFR (MDRD) Amer 89 mL/min >60 [facility] Comment on above: GFR Calc Estimated GFR (MDRD) Non-Af Amer 74 mL/min >60 [facility] Comment on above: Non- GFR Calc Thyroid Stimulating Hormone (TSH) 1.12 uIU/mL 0.358-3.74 [facility] Troponin I High Sensitivity 8 pg/mL 3.0-54.0 [facility] Comment on above: Please Note: New Liliam t Units and Gender Specific Reference Ranges. For more information see Policy Stat Procedure [place] High Sensitivity Troponin (TNIH) and attachments. Platelets bldOrdered By: Dr. Ramirez on 01-18-2023 Platelets (Bld) [#/Vol] 256 10*3/uL 150-450 [facility] Serum or plasma calcium quique urement (mass/volume)Ordered By: Dr. Ramirez on 01-18-2023 Calcium [Mass/Vol] 9.4 mg/dL 8.5-10.1 [facility] Serum or plasma creatinine m easurement (mass/volume)Ordered By: Dr. Ramirez on 01-18-2023 Creatinine [Mass/Vol] 0.82 mg/dL 0.55-1.02 [facility] Comment on above: The validity of the calculated GFR & GFRAA in patients over 70 years has not been determined. Clinical correlation is essential. Serum or plasma urea nitroge n measurement (mass/volume)Ordered By: Dr. Ramirez on 01-18-2023 Urea nitrogen [Mass/Vol] 15 mg/dL 7-18 [facility] Thin prep Papanicolaou smear with manual screeningOrdered By: Dr. Ramirez on 01-18-2023 Thin prep Papanicolaou smear with manual screening 8 - [facility] LABORATORYOrdered By: SYSTEM SYSTEM on 12-10-2022 Albumin BCP dye [Mass/Vol] 4.3 G/dL Invalid Interpretation Code 3.4 - 4.8 G/dL AO ADM SS Albumin/Globulin [Mass ratio] 1.3 {ratio} Invalid Interpretation Code 1.1 - 2.5 ratio AO ADM SS ALP [Catalytic activity/Vol] 90 U/L Invalid Interpretation Code 40 - 135 U/L AO ADM SS ALT With P-5'-P [Catalytic activity/Vol] 20 U/L Invalid Interpretation Code 14 - 59 U/L AO ADM SS AST With P-5'-P [Catalytic activity/Vol] 20 U/L Invalid Interpretation Code 10 - 40 U/L AO ADM SS Bilirubin [Mass/Vol] 0.4 mg/dL Invalid Interpretation Code 0.2 - 1.0 mg/dL AO ADM SS Calcium [Mass/Vol] 9.9 mg/dL Invalid Interpretation Code 8.4 - 10.2 mg/dL AO ADM SS Chloride [Moles/Vol] 101 mmol/L Invalid Interpretation Code 98 - 107 mmol/L AO ADM SS CO2 [Moles/Vol] 30 mmol/L Invalid Interpretation Code 23 - 31 mmol/L AO ADM SS Creatinine [Mass/Vol] 0.87 mg/dL Invalid Interpretation Code 0.55 - 1.02 mg/dL AO ADM SS Electrolyte Balance 10.0 mEq/L Invalid Interpretation Code 4.0 - 15.0 mEq/L AO ADM SS Ferritin [Mass/Vol] 314.0 ng/mL Invalid Interpretation Code 8.0 - 252.0 ng/mL AO ADM SS GFR 78 ml/min/1.73sqm Invalid Interpretation Code AO Chemistry S GFR Non- 65 ml/min/1.73sqm Invalid Interpretation Code AO Chemistry S Globulin 3.4 G/dL Invalid Interpretation Code AO ADM SS Glucose [Mass/Vol] 93 mg/dL Invalid Interpretation Code 80 - 115 mg/dL AO ADM SS HbA1c (Bld) [Mass fraction] 5.3 % Invalid Interpretation Code 4.3 - 6.4 % AO ADM SS Iron [Mass/Vol] 103 ug/dL Invalid Interpretation Code 50 - 170 mcg/dL AO ADM SS Potassium [Moles/Vol] 5.3 mmol/L Invalid Interpretation Code 3.5 - 5.1 mmol/L AO ADM SS Protein [Mass/Vol] 7.7 G/dL Invalid Interpretation Code 6.4 - 8.2 G/dL AO ADM SS Sodium [Moles/Vol] 141 mmol/L Invalid Interpretation Code 136 - 145 mmol/L AO ADM SS TSH Qn 1.52 m[IU]/L Invalid Interpretation Code 0.36 - 3.74 mcIU/mL AO ADM SS Urea nitrogen [Mass/Vol] 23 mg/dL Invalid Interpretation Code 7 - 18 mg/dL AO ADM SS Urea nitrogen/Creatinine [Mass ratio] 26 ratio Invalid Interpretation Code 7 - 27 ratio AO ADM SS Vit. D 25-Hydroxy 59.3 ng/mL Invalid Interpretation Code AO ADM SS LABORATORYOrdered By: Bernadette Stone on 12-10-2022 Basophil, Absolute 0.1 103/mcL Invalid Interpretation Code 0.0 - 0.2 10^3/mcL AO Workflow SS Basophils/100 WBC (Bld) 0.9 % Invalid Interpretation Code 0.0 - 2.5 % AO Workflow SS Eosinophil, Absolute 0.1 103/mcL Invalid Interpretation Code 0.0 - 0.4 10^3/mcL AO Workflow SS Eosinophils/100 WBC (Bld) 2.0 % Invalid Interpretation Code 0.0 - 7.0 % AO Workflow SS Erythrocyte distribution width (RBC) [Ratio] 14.1 % Invalid Interpretation Code 11.5 - 14.5 % AO Workflow SS Hematocrit (Bld) [Volume fraction] 46.9 % Invalid Interpretation Code 37.0 - 47.0 % AO Workflow SS Hemoglobin (Bld) [Mass/Vol] 16.1 G/dL Invalid Interpretation Code 12.0 - 16.0 G/dL AO Workflow SS Lymphocyte, Absolute 1.6 103/mcL Invalid Interpretation Code 0.8 - 3.9 10^3/mcL AO Workflow SS Lymphocytes/100 WBC (Bld) 21.5 % Invalid Interpretation Code 10.0 - 50.0 % AO Workflow SS MCH (RBC) [Entitic mass] 32.1 pg Invalid Interpretation Code 27.0 - 31.2 pg AO Workflow SS MCHC 34.3 G/dL Invalid Interpretation Code 33.0 - 37.0 G/dL AO Workflow SS MCV (RBC) [Entitic vol] 93.6 fL Invalid Interpretation Code 80.0 - 94.0 fL AO Workflow SS Monocyte, Absolute 0.5 103/mcL Invalid Interpretation Code 0.2 - 1.0 10^3/mcL AO Workflow SS Monocytes/100 WBC (Bld) 7.3 % Invalid Interpretation Code 1.7 - 13.0 % AO Workflow SS Neutrophil, Absolute 5.1 103/mcL Invalid Interpretation Code 2.9 - 6.2 10^3/mcL AO Workflow SS Neutrophils/100 WBC (Bld) 68.3 % Invalid Interpretation Code 37.0 - 80.0 % AO Workflow SS Platelet Estimate Normal (12/10/22 8:48 AM) Invalid Interpretation Code AO Hematology S Platelet mean volume (Bld) [Entitic vol] 9.0 fL Invalid Interpretation Code 7.4 - 10.4 fL AO Workflow SS Platelets (Bld) [#/Vol] 330 103/mcL Invalid Interpretation Code 130 - 400 10^3/mcL AO Workflow SS RBC (Bld) [#/Vol] 5.01 106/mcL Invalid Interpretation Code 4.20 - 5.40 10^6/mcL AO Workflow SS WBC (Bld) [#/Vol] 7.4 103/mcL Invalid Interpretation Code 4.6 - 10.8 10^3/mcL AO Workflow SS LABORATORYOrdered By: SYSTEM SYSTEM on 11-09-2022 Albumin BCP dye [Mass/Vol] 3.9 G/dL Invalid Interpretation Code 3.4 - 4.8 G/dL AO ADM SS Calcium [Mass/Vol] 9.3 mg/dL Invalid Interpretation Code 8.4 - 10.2 mg/dL AO ADM SS Chloride [Moles/Vol] 101 mmol/L Invalid Interpretation Code 98 - 107 mmol/L AO ADM SS CO2 [Moles/Vol] 34 mmol/L Invalid Interpretation Code 23 - 31 mmol/L AO ADM SS Creatinine [Mass/Vol] 0.83 mg/dL Invalid Interpretation Code 0.55 - 1.02 mg/dL AO ADM SS Electrolyte Balance 3.0 mEq/L Invalid Interpretation Code 4.0 - 15.0 mEq/L AO ADM SS GFR 83 ml/min/1.73sqm Invalid Interpretation Code AO Chemistry S GFR Non- 68 ml/min/1.73sqm Invalid Interpretation Code AO Chemistry S Glucose [Mass/Vol] 92 mg/dL Invalid Interpretation Code 80 - 115 mg/dL AO ADM SS Phosphate [Mass/Vol] 4.7 mg/dL Invalid Interpretation Code 2.3 - 4.1 mg/dL AO ADM SS Potassium [Moles/Vol] 5.0 mmol/L Invalid Interpretation Code 3.5 - 5.1 mmol/L AO ADM SS Sodium [Moles/Vol] 138 mmol/L Invalid Interpretation Code 136 - 145 mmol/L AO ADM SS Urea nitrogen [Mass/Vol] 18 mg/dL Invalid Interpretation Code 7 - 18 mg/dL AO ADM SS Urea nitrogen/Creatinine [Mass ratio] 22 ratio Invalid Interpretation Code 7 - 27 ratio AO ADM SS LABORATORYOrdered By: Bernadette Stone on 08-18-2022 Albumin BCP dye [Mass/Vol] 3.9 G/dL Invalid Interpretation Code 3.4 - 4.8 G/dL AO ADM SS Calcium [Mass/Vol] 9.5 mg/dL Invalid Interpretation Code 8.4 - 10.2 mg/dL AO ADM SS Chloride [Moles/Vol] 98 mmol/L Invalid Interpretation Code 98 - 107 mmol/L AO ADM SS CO2 [Moles/Vol] 33 mmol/L Invalid Interpretation Code 23 - 31 mmol/L AO ADM SS Creatinine [Mass/Vol] 0.78 mg/dL Invalid Interpretation Code 0.55 - 1.02 mg/dL AO ADM SS Electrolyte Balance 8.0 mEq/L Invalid Interpretation Code 4.0 - 15.0 mEq/L AO ADM SS Glucose [Mass/Vol] 129 mg/dL Invalid Interpretation Code 80 - 115 mg/dL AO ADM SS Phosphate [Mass/Vol] 3.3 mg/dL Invalid Interpretation Code 2.3 - 4.1 mg/dL AO ADM SS Potassium [Moles/Vol] 4.5 mmol/L Invalid Interpretation Code 3.5 - 5.1 mmol/L AO ADM SS Sodium [Moles/Vol] 139 mmol/L Invalid Interpretation Code 136 - 145 mmol/L AO ADM SS Urea nitrogen [Mass/Vol] 12 mg/dL Invalid Interpretation Code 7 - 18 mg/dL AO ADM SS Urea nitrogen/Creatinine [Mass ratio] 15 ratio Invalid Interpretation Code 7 - 27 ratio AO ADM SS Vit. D 25-Hydroxy 60.1 ng/mL Invalid Interpretation Code AO ADM SS LABORATORYOrdered By: Jessie Alvarado on 08-18-2022 Appearance (U) Clear (08/18/22 2:07 PM) Invalid Interpretation Code Clear AO Auto Urine SS Bacteria LM.HPF (Urine sed) [#/Area] Trace /HPF Invalid Interpretation Code AO Auto Urine SS Bilirubin Ql (U) Negative (08/18/22 2:07 PM) Invalid Interpretation Code Negative AO Auto Urine SS Color (U) Yellow (08/18/22 2:07 PM) Invalid Interpretation Code AO Auto Urine SS Glucose Test strip (U) [Mass/Vol] Negative Invalid Interpretation Code Negativemg/d L AO Auto Urine SS Hemoglobin Auto test strip (U) [Mass/Vol] Negative (08/18/22 2:07 PM) Invalid Interpretation Code Negative AO Auto Urine SS Ketones Ql (U) Negative Invalid Interpretation Code Negativemg/d L AO Auto Urine SS UA Leuk Est Trace *ABN* (08/18/22 2:07 PM) Invalid Interpretation Code Negative AO Auto Urine SS UA Nitrite Negative (08/18/22 2:07 PM) Invalid Interpretation Code Negative AO Auto Urine SS UA pH 7.0 (08/18/22 2:07 PM) Invalid Interpretation Code 5.0 - 8.0 AO Auto Urine SS UA Protein Trace mg/dL Invalid Interpretation Code Negativemg/d L AO Auto Urine SS UA RBC None Seen /HPF Invalid Interpretation Code None Seen/HPF AO Auto Urine SS UA Spec Grav 1.020 (08/18/22 2:07 PM) Invalid Interpretation Code 1.015-1.025 AO Auto Urine SS UA Specimen Type Not Given (08/18/22 2:07 PM) Invalid Interpretation Code AO Auto Urine SS UA Squam Epithelial 0-5 /HPF Invalid Interpretation Code None Seen/HPF AO Auto Urine SS UA Urobilinogen 0.2 E.U./dL Invalid Interpretation Code 0.2-1.0E.U./ dL AO Auto Urine SS WBC LM.HPF (Urine sed) [#/Area] 0-5 /HPF Invalid Interpretation Code None Seen/HPF AO Auto Urine SS LABORATORYOrdered By: Marcial Bonilla on 08-18-2022 Creatinine (U) [Mass/Vol] mg/dL Invalid Interpretation Code 28.0 - 117.0 mg/dL AO ADM SS Protein (U) [Mass/Vol] 21 mg/dL Invalid Interpretation Code 0 - 11 mg/dL AO ADM SS LABORATORYOrdered By: SYSTEM SYSTEM on 08-18-2022 GFR 89 ml/min/1.73sqm Invalid Interpretation Code AO Chemistry S GFR Non- 73 ml/min/1.73sqm Invalid Interpretation Code AO Chemistry S Parathyrin.intact [Mass/Vol] 140.5 pg/mL Invalid Interpretation Code 18.5 - 88.0 pg/mL AH ADM SS LABORATORYOrdered By: Karen Andrade on 07-24-2022 Calcium [Mass/Vol] 9.5 mg/dL Invalid Interpretation Code 8.4 - 10.2 mg/dL AO ADM SS Chloride [Moles/Vol] 97 mmol/L Invalid Interpretation Code 98 - 107 mmol/L AO ADM SS CO2 [Moles/Vol] 37 mmol/L Invalid Interpretation Code 23 - 31 mmol/L AO ADM SS Creatinine [Mass/Vol] 1.19 mg/dL Invalid Interpretation Code 0.55 - 1.02 mg/dL AO ADM SS Electrolyte Balance 5.0 mEq/L Invalid Interpretation Code 4.0 - 15.0 mEq/L AO ADM SS Glucose [Mass/Vol] 169 mg/dL Invalid Interpretation Code 80 - 115 mg/dL AO ADM SS Potassium [Moles/Vol] 4.9 mmol/L Invalid Interpretation Code 3.5 - 5.1 mmol/L AO ADM SS Sodium [Moles/Vol] 139 mmol/L Invalid Interpretation Code 136 - 145 mmol/L AO ADM SS Urea nitrogen [Mass/Vol] 21 mg/dL Invalid Interpretation Code 7 - 18 mg/dL AO ADM SS Urea nitrogen/Creatinine [Mass ratio] 18 ratio Invalid Interpretation Code 7 - 27 ratio AO ADM SS LABORATORYOrdered By: SYSTEM SYSTEM on 07-24-2022 GFR 55 ml/min/1.73sqm Invalid Interpretation Code AO Chemistry S GFR Non- 45 ml/min/1.73sqm Invalid Interpretation Code AO Chemistry S LABORATORYOrdered By: SYSTEM SYSTEM on 07-22-2022 Basophils (Bld) [#/Vol] 0.0 103/mcL Invalid Interpretation Code 0.0 - 0.3 10^3/mcL Workflow SS Basophils/100 WBC (Bld) 0.1 % Invalid Interpretation Code 0.0 - 2.5 % Workflow SS Calcium [Mass/Vol] 8.0 mg/dL Invalid Interpretation Code 8.7 - 10.4 mg/dL ADM SS Chloride [Moles/Vol] 97 mmol/L Invalid Interpretation Code 98 - 110 mEq/L ADM SS CO2 [Moles/Vol] 38 mmol/L Invalid Interpretation Code 22 - 32 mEq/L ADM SS Creatinine [Mass/Vol] 0.56 mg/dL Invalid Interpretation Code 0.50 - 1.20 mg/dL ADM SS Electrolyte Balance 4.0 mEq/L Invalid Interpretation Code 4.0 - 15.0 mEq/L ADM SS Eosinophils (Bld) [#/Vol] 0.0 103/mcL Invalid Interpretation Code 0.0 - 0.7 10^3/mcL Workflow SS Eosinophils/100 WBC (Bld) 0.0 % Invalid Interpretation Code 0.0 - 6.0 % Workflow SS Erythrocyte distribution width (RBC) [Ratio] 15.2 % Invalid Interpretation Code 11.5 - 15.5 % Workflow SS Ferritin [Mass/Vol] 14.2 ng/mL Invalid Interpretation Code 8.0 - 252.0 ng/mL ADM SS GFR/1.73 sq M.predicted among blacks MDRD (S/P/Bld) [Vol rate/Area] ml/min/1.73sqm Invalid Interpretation Code Chemistry S GFR/1.73 sq M.predicted among non-blacks MDRD (S/P/Bld) [Vol rate/Area] ml/min/1.73sqm Invalid Interpretation Code Chemistry S Glucose [Mass/Vol] 116 mg/dL Invalid Interpretation Code 82 - 115 mg/dL ADM SS Hematocrit (Bld) [Volume fraction] 46.6 % Invalid Interpretation Code 34.0 - 46.0 % Workflow SS Hemoglobin (Bld) [Mass/Vol] 14.8 G/dL Invalid Interpretation Code 12.0 - 16.0 G/dL AH Workflow SS Iron [Mass/Vol] 21 ug/dL Invalid Interpretation Code 50 - 170 mcg/dL ADM SS Iron binding capacity [Mass/Vol] 362 mcg/dL Invalid Interpretation Code 250 - 500 mcg/dL ADM SS Iron saturation [Mass fraction] 6 1 Invalid Interpretation Code ADM SS Lymphocytes (Bld) [#/Vol] 0.4 103/mcL Invalid Interpretation Code 0.9 - 4.3 10^3/mcL Workflow SS Lymphocytes/100 WBC (Bld) 4.6 % Invalid Interpretation Code 20.0 - 40.0 % Workflow SS MCH (RBC) [Entitic mass] 28.2 pg Invalid Interpretation Code 27.0 - 33.0 pg Workflow SS MCHC 31.8 G/dL Invalid Interpretation Code 32.0 - 36.0 G/dL Workflow SS MCV (RBC) [Entitic vol] 88.5 fL Invalid Interpretation Code 80.0 - 99.0 fL Workflow SS Monocytes (Bld) [#/Vol] 0.4 103/mcL Invalid Interpretation Code 0.1 - 1.4 10^3/mcL Workflow SS Monocytes/100 WBC (Bld) 4.8 % Invalid Interpretation Code 2.0 - 13.0 % Workflow SS Neutrophils (Bld) [#/Vol] 7.5 103/mcL Invalid Interpretation Code 2.3 - 8.1 10^3/mcL Workflow SS Neutrophils/100 WBC (Bld) 90.5 % Invalid Interpretation Code 50.0 - 75.0 % Workflow SS Platelet mean volume (Bld) [Entitic vol] 7.9 fL Invalid Interpretation Code 6.6 - 10.5 fL Workflow SS Platelets (Bld) [#/Vol] 210 103/mcL Invalid Interpretation Code 150 - 450 10^3/mcL Workflow SS Potassium [Moles/Vol] 3.8 mmol/L Invalid Interpretation Code 3.5 - 5.0 mEq/L ADM SS RBC (Bld) [#/Vol] 5.26 106/mcL Invalid Interpretation Code 4.10 - 5.30 10^6/mcL Workflow SS Sodium [Moles/Vol] 139 mmol/L Invalid Interpretation Code 136 - 145 mEq/L ADM SS Urea nitrogen [Mass/Vol] 14.0 mg/dL Invalid Interpretation Code 8.0 - 22.0 mg/dL ADM SS Urea nitrogen/Creatinine [Mass ratio] 25.0 ratio Invalid Interpretation Code 10.0 - 22.0 ratio ADM SS WBC (Bld) [#/Vol] 8.3 103/mcL Invalid Interpretation Code 4.5 - 10.8 10^3/mcL Workflow SS LABORATORYOrdered By: Zehra Rajput on 07-22-2022 Natriuretic peptide.B prohormone N-Terminal [Mass/Vol] 2555 pg/mL Invalid Interpretation Code 0 - 900 pg/mL Auto Chem SS LABORATORYOrdered By: SYSTEM SYSTEM on 07-21-2022 Basophils (Bld) [#/Vol] 0.0 103/mcL Invalid Interpretation Code 0.0 - 0.3 10^3/mcL Workflow SS Basophils/100 WBC (Bld) 0.0 % Invalid Interpretation Code 0.0 - 2.5 % Workflow SS Calcium [Mass/Vol] 7.5 mg/dL Invalid Interpretation Code 8.7 - 10.4 mg/dL ADM SS Chloride [Moles/Vol] 98 mmol/L Invalid Interpretation Code 98 - 110 mEq/L ADM SS CO2 [Moles/Vol] 34 mmol/L Invalid Interpretation Code 22 - 32 mEq/L ADM SS Creatinine [Mass/Vol] 0.60 mg/dL Invalid Interpretation Code 0.50 - 1.20 mg/dL ADM SS Electrolyte Balance 8.0 mEq/L Invalid Interpretation Code 4.0 - 15.0 mEq/L ADM SS Eosinophils (Bld) [#/Vol] 0.0 103/mcL Invalid Interpretation Code 0.0 - 0.7 10^3/mcL Workflow SS Eosinophils/100 WBC (Bld) 0.0 % Invalid Interpretation Code 0.0 - 6.0 % Workflow SS Erythrocyte distribution width (RBC) [Ratio] 15.3 % Invalid Interpretation Code 11.5 - 15.5 % Workflow SS GFR/1.73 sq M.predicted among blacks MDRD (S/P/Bld) [Vol rate/Area] ml/min/1.73sqm Invalid Interpretation Code Chemistry S GFR/1.73 sq M.predicted among non-blacks MDRD (S/P/Bld) [Vol rate/Area] ml/min/1.73sqm Invalid Interpretation Code Chemistry S Glucose [Mass/Vol] 130 mg/dL Invalid Interpretation Code 82 - 115 mg/dL ADM SS Hematocrit (Bld) [Volume fraction] 45.6 % Invalid Interpretation Code 34.0 - 46.0 % AH Workflow SS Hemoglobin (Bld) [Mass/Vol] 14.7 G/dL Invalid Interpretation Code 12.0 - 16.0 G/dL AH Workflow SS Lymphocytes (Bld) [#/Vol] 0.3 103/mcL Invalid Interpretation Code 0.9 - 4.3 10^3/mcL AH Workflow SS Lymphocytes/100 WBC (Bld) 3.7 % Invalid Interpretation Code 20.0 - 40.0 % AH Workflow SS MCH (RBC) [Entitic mass] 28.5 pg Invalid Interpretation Code 27.0 - 33.0 pg AH Workflow SS MCHC 32.2 G/dL Invalid Interpretation Code 32.0 - 36.0 G/dL AH Workflow SS MCV (RBC) [Entitic vol] 88.6 fL Invalid Interpretation Code 80.0 - 99.0 fL AH Workflow SS Monocytes (Bld) [#/Vol] 0.3 103/mcL Invalid Interpretation Code 0.1 - 1.4 10^3/mcL AH Workflow SS Monocytes/100 WBC (Bld) 3.3 % Invalid Interpretation Code 2.0 - 13.0 % AH Workflow SS Neutrophils (Bld) [#/Vol] 8.5 103/mcL Invalid Interpretation Code 2.3 - 8.1 10^3/mcL AH Workflow SS Neutrophils/100 WBC (Bld) 93.0 % Invalid Interpretation Code 50.0 - 75.0 % AH Workflow SS Platelet mean volume (Bld) [Entitic vol] 7.9 fL Invalid Interpretation Code 6.6 - 10.5 fL AH Workflow SS Platelets (Bld) [#/Vol] 209 103/mcL Invalid Interpretation Code 150 - 450 10^3/mcL AH Workflow SS Potassium [Moles/Vol] 3.9 mmol/L Invalid Interpretation Code 3.5 - 5.0 mEq/L ADM SS RBC (Bld) [#/Vol] 5.15 106/mcL Invalid Interpretation Code 4.10 - 5.30 10^6/mcL AH Workflow SS Sodium [Moles/Vol] 140 mmol/L Invalid Interpretation Code 136 - 145 mEq/L AH ADM SS Urea nitrogen [Mass/Vol] 20.0 mg/dL Invalid Interpretation Code 8.0 - 22.0 mg/dL AH ADM SS Urea nitrogen/Creatinine [Mass ratio] 33.3 ratio Invalid Interpretation Code 10.0 - 22.0 ratio AH ADM SS WBC (Bld) [#/Vol] 9.1 103/mcL Invalid Interpretation Code 4.5 - 10.8 10^3/mcL AH Workflow SS LABORATORYOrdered By: SYSTEM SYSTEM on 07-20-2022 Anisocytosis Ql (Bld) 1+ *NA* (07/20/22 11:12 AM) Invalid Interpretation Code Workflow SS Basophils (Bld) [#/Vol] 0.0 103/mcL Invalid Interpretation Code 0.0 - 0.3 10^3/mcL Workflow SS Basophils/100 WBC (Bld) 0.1 % Invalid Interpretation Code 0.0 - 2.5 % AH Workflow SS Eosinophils (Bld) [#/Vol] 0.0 103/mcL Invalid Interpretation Code 0.0 - 0.7 10^3/mcL AH Workflow SS Eosinophils/100 WBC (Bld) 0.0 % Invalid Interpretation Code 0.0 - 6.0 % AH Workflow SS Erythrocyte distribution width (RBC) [Ratio] 15.7 % Invalid Interpretation Code 11.5 - 15.5 % AH Workflow SS Hematocrit (Bld) [Volume fraction] 53.1 % Invalid Interpretation Code 34.0 - 46.0 % AH Workflow SS Hemoglobin (Bld) [Mass/Vol] 16.9 G/dL Invalid Interpretation Code 12.0 - 16.0 G/dL AH Workflow SS Lymphocytes (Bld) [#/Vol] 0.5 103/mcL Invalid Interpretation Code 0.9 - 4.3 10^3/mcL AH Workflow SS Lymphocytes/100 WBC (Bld) 4.4 % Invalid Interpretation Code 20.0 - 40.0 % AH Workflow SS MCH (RBC) [Entitic mass] 28.9 pg Invalid Interpretation Code 27.0 - 33.0 pg AH Workflow SS MCHC 31.8 G/dL Invalid Interpretation Code 32.0 - 36.0 G/dL AH Workflow SS MCV (RBC) [Entitic vol] 90.8 fL Invalid Interpretation Code 80.0 - 99.0 fL AH Workflow SS Monocytes (Bld) [#/Vol] 0.6 103/mcL Invalid Interpretation Code 0.1 - 1.4 10^3/mcL AH Workflow SS Monocytes/100 WBC (Bld) 4.6 % Invalid Interpretation Code 2.0 - 13.0 % AH Workflow SS Neutrophils (Bld) [#/Vol] 10.9 103/mcL Invalid Interpretation Code 2.3 - 8.1 10^3/mcL AH Workflow SS Neutrophils/100 WBC (Bld) 90.9 % Invalid Interpretation Code 50.0 - 75.0 % AH Workflow SS Platelet mean volume (Bld) [Entitic vol] 9.1 fL Invalid Interpretation Code 6.6 - 10.5 fL AH Workflow SS Platelets (Bld) [#/Vol] 331 103/mcL Invalid Interpretation Code 150 - 450 10^3/mcL AH Workflow SS Platelets LM Ql (Bld) Normal *NA* (07/20/22 11:12 AM) Invalid Interpretation Code Workflow SS RBC (Bld) [#/Vol] 5.84 106/mcL Invalid Interpretation Code 4.10 - 5.30 10^6/mcL AH Workflow SS WBC (Bld) [#/Vol] 12.0 103/mcL Invalid Interpretation Code 4.5 - 10.8 10^3/mcL AH Workflow SS Calcium [Mass/Vol] 7.8 mg/dL Invalid Interpretation Code 8.7 - 10.4 mg/dL ADM SS Chloride [Moles/Vol] 108 mmol/L Invalid Interpretation Code 98 - 110 mEq/L ADM SS CO2 [Moles/Vol] 23 mmol/L Invalid Interpretation Code 22 - 32 mEq/L ADM SS Creatinine [Mass/Vol] 0.88 mg/dL Invalid Interpretation Code 0.50 - 1.20 mg/dL ADM SS Electrolyte Balance 15.0 mEq/L Invalid Interpretation Code 4.0 - 15.0 mEq/L ADM SS GFR/1.73 sq M.predicted among blacks MDRD (S/P/Bld) [Vol rate/Area] ml/min/1.73sqm Invalid Interpretation Code Chemistry S GFR/1.73 sq M.predicted among non-blacks MDRD (S/P/Bld) [Vol rate/Area] ml/min/1.73sqm Invalid Interpretation Code Chemistry S Glucose [Mass/Vol] 176 mg/dL Invalid Interpretation Code 82 - 115 mg/dL ADM SS Magnesium [Mass/Vol] 2.2 mg/dL Invalid Interpretation Code 1.6 - 2.4 mg/dL ADM SS Potassium [Moles/Vol] 5.6 mmol/L Invalid Interpretation Code 3.5 - 5.0 mEq/L ADM SS Sodium [Moles/Vol] 146 mmol/L Invalid Interpretation Code 136 - 145 mEq/L ADM SS Urea nitrogen [Mass/Vol] 29.0 mg/dL Invalid Interpretation Code 8.0 - 22.0 mg/dL ADM SS Urea nitrogen/Creatinine [Mass ratio] 33.0 ratio Invalid Interpretation Code 10.0 - 22.0 ratio ADM SS LABORATORYOrdered By: Julieta Olivarez on 07-20-2022 Base excess Calc (BldV) [Moles/Vol] 2.8 mmol/L Invalid Interpretation Code -3.0 - 3.0 mmol/L Auto Chem SS CO2 (BldV) [Partial pressure] 63.6 mm[Hg] Invalid Interpretation Code 41.0 - 51.0 mm Hg Auto Chem SS CO2 Calc (BldV) [Moles/Vol] 33.0 mmol/L Invalid Interpretation Code 22.0 - 32.0 mmol/L Auto Chem SS HCO3 (Bld) [Moles/Vol] 31.1 mmol/L Invalid Interpretation Code 21.0 - 30.0 mmol/L Auto Chem SS Oxygen (BldV) [Partial pressure] 220.6 mm[Hg] Invalid Interpretation Code 35.0 - 40.0 mm Hg Auto Chem SS pH (BldV) 7.307 [pH] Invalid Interpretation Code 7.380 - 7.460 Auto Chem SS LABORATORYOrdered By: Joshua Brooke on 07-20-2022 Glucose [Mass/Vol] 149 mg/dL Invalid Interpretation Code 82 - 115 mg/dL [facility] LABORATORYOrdered By: Philly Roberson on 07-20-2022 Base excess Calc (BldV) [Moles/Vol] 5.0 mmol/L Invalid Interpretation Code -3.0 - 3.0 mmol/L Auto Chem SS CO2 (BldV) [Partial pressure] 74.5 mm[Hg] Invalid Interpretation Code 41.0 - 51.0 mm Hg AH Auto Chem SS CO2 Calc (BldV) [Moles/Vol] 37.1 mmol/L Invalid Interpretation Code 22.0 - 32.0 mmol/L AH Auto Chem SS HCO3 (Bld) [Moles/Vol] 34.8 mmol/L Invalid Interpretation Code 21.0 - 30.0 mmol/L AH Auto Chem SS Oxygen (BldV) [Partial pressure] 63.8 mm[Hg] Invalid Interpretation Code 35.0 - 40.0 mm Hg AH Auto Chem SS pH (BldV) 7.287 [pH] Invalid Interpretation Code 7.380 - 7.460 AH Auto Chem SS LABORATORYOrdered By: London Gonzalez on 07-19-2022 Base excess Calc (BldV) [Moles/Vol] 2.8 mmol/L Invalid Interpretation Code -3.0 - 3.0 mmol/L AH Auto Chem SS CO2 (BldV) [Partial pressure] 71.5 mm[Hg] Invalid Interpretation Code 41.0 - 51.0 mm Hg AH Auto Chem SS CO2 Calc (BldV) [Moles/Vol] 34.6 mmol/L Invalid Interpretation Code 22.0 - 32.0 mmol/L AH Auto Chem SS HCO3 (Bld) [Moles/Vol] 32.4 mmol/L Invalid Interpretation Code 21.0 - 30.0 mmol/L AH Auto Chem SS Oxygen (BldV) [Partial pressure] 76.5 mm[Hg] Invalid Interpretation Code 35.0 - 40.0 mm Hg AH Auto Chem SS pH (BldV) 7.274 [pH] Invalid Interpretation Code 7.380 - 7.460 AH Auto Chem SS LABORATORYOrdered By: Zehra Rajput on 07-19-2022 Barometric Pressure 738 mm[Hg] Invalid Interpretation Code AH Auto Chem SS Base excess Calc (Bld) [Moles/Vol] 1.4 mmol/L Invalid Interpretation Code AH Auto Chem SS CO2 (Bld) [Partial pressure] 73.3 mm[Hg] Invalid Interpretation Code 32.0 - 46.0 mm Hg AH Auto Chem SS Comment on above: Result Comment: call ed to laura blue rn rb CO2 [Moles/Vol] 33.3 mmol/L Invalid Interpretation Code 22.0 - 30.0 mmol/L AH Auto Chem SS HCO3 (Bld) [Moles/Vol] 31.1 mmol/L Invalid Interpretation Code 21.0 - 29.0 mmol/L AH Auto Chem SS Oxygen (Bld) [Partial pressure] 96.1 mm[Hg] Invalid Interpretation Code 74.0 - 108.0 mm Hg AH Auto Chem SS pH (Bld) 7.245 [pH] Invalid Interpretation Code 7.380 - 7.460 AH Auto Chem SS LABORATORYOrdered By: Isacc Rosen on 07-19-2022 M. pneumoniae IgM IA Ql (S) Negative (07/19/22 5:25 AM) Invalid Interpretation Code AH Man Viro/Sero SS LABORATORYOrdered By: Mariana Claudio on 07-19-2022 Mycoplasma IgG Positive *NA* (07/19/22 5:25 AM) Invalid Interpretation Code AH Auto Viro/Sero SS LABORATORYOrdered By: aMry mcgill on 07-19-2022 Adenovirus DNA RICH+non-probe Ql (Nph) Not Detected *NA* (07/19/22 4:43 AM) Invalid Interpretation Code Not Detected AH Auto Viro/Sero SS B. parapertussis [id number] DNA RICH+non-probe Ql (Nph) Not Detected *NA* (07/19/22 4:43 AM) Invalid Interpretation Code Not Detected AH Auto Viro/Sero SS B. pertussis toxin promoter region RICH+non-probe Ql (Nph) Not Detected *NA* (07/19/22 4:43 AM) Invalid Interpretation Code Not Detected AH Auto Viro/Sero SS C. pneumoniae DNA RICH+non-probe Ql (Nph) Not Detected *NA* (07/19/22 4:43 AM) Invalid Interpretation Code Not Detected AH Auto Viro/Sero SS FLUAV RNA RICH+non-probe Ql (Nph) Not Detected *NA* (07/19/22 4:43 AM) Invalid Interpretation Code Not Detected AH Auto Viro/Sero SS FLUBV RNA RICH+non-probe Ql (Nph) Not Detected *NA* (07/19/22 4:43 AM) Invalid Interpretation Code Not Detected AH Auto Viro/Sero SS hMPV RNA RICH+non-probe Ql (Nph) Not Detected *NA* (07/19/22 4:43 AM) Invalid Interpretation Code Not Detected AH Auto Viro/Sero SS M. pneumoniae DNA RICH+non-probe Ql (Nph) Not Detected *NA* (07/19/22 4:43 AM) Invalid Interpretation Code Not Detected AH Auto Viro/Sero SS Parainfluenza virus 1 RNA RICH+non-probe Ql (Nph) Not Detected *NA* (07/19/22 4:43 AM) Invalid Interpretation Code Not Detected AH Auto Viro/Sero SS Parainfluenza virus 2 RNA RICH+non-probe Ql (Nph) Not Detected *NA* (07/19/22 4:43 AM) Invalid Interpretation Code Not Detected AH Auto Viro/Sero SS Parainfluenza virus 3 RNA RICH+non-probe Ql (Nph) Not Detected *NA* (07/19/22 4:43 AM) Invalid Interpretation Code Not Detected AH Auto Viro/Sero SS Parainfluenza virus 4 RNA RICH+non-probe Ql (Nph) Not Detected *NA* (07/19/22 4:43 AM) Invalid Interpretation Code Not Detected AH Auto Viro/Sero SS Rhinovirus+Enterovirus RNA RICH+non-probe Ql (Nph) Not Detected *NA* (07/19/22 4:43 AM) Invalid Interpretation Code Not Detected AH Auto Viro/Sero SS RSV RNA RICH+non-probe Ql (Nph) Not Detected *NA* (07/19/22 4:43 AM) Invalid Interpretation Code Not Detected AH Auto Viro/Sero SS SARS-CoV-2 (COVID-19) RNA RICH+probe Ql (Resp) Not Detected *NA* (07/19/22 4:43 AM) Invalid Interpretation Code Not Detected AH Auto Viro/Sero SS LABORATORYOrdered By: Philly Roberson on 07-19-2022 Barometric Pressure 737 mm[Hg] Invalid Interpretation Code AH Auto Chem SS Base excess Calc (Bld) [Moles/Vol] 1.8 mmol/L Invalid Interpretation Code AH Auto Chem SS CO2 (Bld) [Partial pressure] 65.8 mm[Hg] Invalid Interpretation Code 32.0 - 46.0 mm Hg AH Auto Chem SS CO2 [Moles/Vol] 32.5 mmol/L Invalid Interpretation Code 22.0 - 30.0 mmol/L AH Auto Chem SS HCO3 (Bld) [Moles/Vol] 30.4 mmol/L Invalid Interpretation Code 21.0 - 29.0 mmol/L AH Auto Chem SS Oxygen (Bld) [Partial pressure] 89.1 mm[Hg] Invalid Interpretation Code 74.0 - 108.0 mm Hg Auto Chem SS pH (Bld) 7.283 [pH] Invalid Interpretation Code 7.380 - 7.460 Auto Chem SS No Panel Informationon 07-19 Legionella Urine Ag Presumptive negative for L. pneumophila serogroup 1 antigen in urine, suggesting no recent or current infection. Legionnaire's disease cannot be ruled out since other serogroups and species may also cause disease. [facility] Streptococcus Pneumoniae Urine Antig Presumptive negative for pneumococcal pneumonia, suggesting no current or recent pneumococcal infection. Infection due to Strep pneumoniae cannot be ruled out since the antigen present in the sample may be below the detection limit of the test. [facility] Comment on above: This test has not be en evaluated on patients taking antibiotics for greater than 24 hours or on patients who have recently completed an antibiotic regimen. The accuracy of this test has not been proven in young children. LABORATORYOrdered By: Maria Ines Ni on 06-08-2022 Albumin BCP dye [Mass/Vol] 3.7 G/dL Invalid Interpretation Code 3.4 - 4.8 G/dL AO ADM SS Albumin/Globulin [Mass ratio] 1.1 {ratio} Invalid Interpretation Code 1.1 - 2.5 ratio AO ADM SS ALP [Catalytic activity/Vol] 86 U/L Invalid Interpretation Code 40 - 135 U/L AO ADM SS ALT With P-5'-P [Catalytic activity/Vol] 16 U/L Invalid Interpretation Code 14 - 59 U/L AO ADM SS AST With P-5'-P [Catalytic activity/Vol] 16 U/L Invalid Interpretation Code 10 - 40 U/L AO ADM SS Bilirubin [Mass/Vol] 0.5 mg/dL Invalid Interpretation Code 0.2 - 1.0 mg/dL AO ADM SS Calcium [Mass/Vol] 8.9 mg/dL Invalid Interpretation Code 8.4 - 10.2 mg/dL AO ADM SS Chloride [Moles/Vol] 97 mmol/L Invalid Interpretation Code 98 - 107 mmol/L AO ADM SS Cholesterol [Mass/Vol] 216 mg/dL Invalid Interpretation Code 0 - 200 mg/dL AO ADM SS Cholesterol in HDL [Mass/Vol] 85 mg/dL Invalid Interpretation Code 40 - 60 mg/dL AO ADM SS Cholesterol in LDL [Mass/Vol] 117 mg/dL Invalid Interpretation Code 0 - 130 mg/dL AO ADM SS CO2 [Moles/Vol] 37 mmol/L Invalid Interpretation Code 23 - 31 mmol/L AO ADM SS Creatinine [Mass/Vol] 0.81 mg/dL Invalid Interpretation Code 0.55 - 1.02 mg/dL AO ADM SS Electrolyte Balance 4.0 mEq/L Invalid Interpretation Code 4.0 - 15.0 mEq/L AO ADM SS Globulin 3.3 G/dL Invalid Interpretation Code AO ADM SS Glucose [Mass/Vol] 83 mg/dL Invalid Interpretation Code 80 - 115 mg/dL AO ADM SS Potassium [Moles/Vol] 5.2 mmol/L Invalid Interpretation Code 3.5 - 5.1 mmol/L AO ADM SS Protein [Mass/Vol] 7.0 G/dL Invalid Interpretation Code 6.4 - 8.2 G/dL AO ADM SS Sodium [Moles/Vol] 138 mmol/L Invalid Interpretation Code 136 - 145 mmol/L AO ADM SS Triglyceride [Mass/Vol] 71 mg/dL Invalid Interpretation Code 0 - 150 mg/dL AO ADM SS TSH Qn 1.27 m[IU]/L Invalid Interpretation Code 0.36 - 3.74 mcIU/mL AO ADM SS Urea nitrogen [Mass/Vol] 9 mg/dL Invalid Interpretation Code 7 - 18 mg/dL AO ADM SS Urea nitrogen/Creatinine [Mass ratio] 11 ratio Invalid Interpretation Code 7 - 27 ratio AO ADM SS Vit. D 25-Hydroxy 62.2 ng/mL Invalid Interpretation Code AO ADM SS LABORATORYOrdered By: Mikayla Rosario on 06-08-2022 Basophil, Absolute 0.1 103/mcL Invalid Interpretation Code 0.0 - 0.2 10^3/mcL AO Workflow SS Basophils/100 WBC (Bld) 1.1 % Invalid Interpretation Code 0.0 - 2.5 % AO Workflow SS Eosinophil, Absolute 0.1 103/mcL Invalid Interpretation Code 0.0 - 0.4 10^3/mcL AO Workflow SS Eosinophils/100 WBC (Bld) 1.4 % Invalid Interpretation Code 0.0 - 7.0 % AO Workflow SS Erythrocyte distribution width (RBC) [Ratio] 15.1 % Invalid Interpretation Code 11.5 - 14.5 % AO Workflow SS Hematocrit (Bld) [Volume fraction] 53.5 % Invalid Interpretation Code 37.0 - 47.0 % AO Workflow SS Hemoglobin (Bld) [Mass/Vol] 18.0 G/dL Invalid Interpretation Code 12.0 - 16.0 G/dL AO Workflow SS Lymphocyte, Absolute 1.6 103/mcL Invalid Interpretation Code 0.8 - 3.9 10^3/mcL AO Workflow SS Lymphocytes/100 WBC (Bld) 24.3 % Invalid Interpretation Code 10.0 - 50.0 % AO Workflow SS MCH (RBC) [Entitic mass] 30.7 pg Invalid Interpretation Code 27.0 - 31.2 pg AO Workflow SS MCHC 33.7 G/dL Invalid Interpretation Code 33.0 - 37.0 G/dL AO Workflow SS MCV (RBC) [Entitic vol] 91.1 fL Invalid Interpretation Code 80.0 - 94.0 fL AO Workflow SS Monocyte, Absolute 0.6 103/mcL Invalid Interpretation Code 0.2 - 1.0 10^3/mcL AO Workflow SS Monocytes/100 WBC (Bld) 10.1 % Invalid Interpretation Code 1.7 - 13.0 % AO Workflow SS Neutrophil, Absolute 4.0 103/mcL Invalid Interpretation Code 2.9 - 6.2 10^3/mcL AO Workflow SS Neutrophils/100 WBC (Bld) 63.1 % Invalid Interpretation Code 37.0 - 80.0 % AO Workflow SS Platelet mean volume (Bld) [Entitic vol] 8.4 fL Invalid Interpretation Code 7.4 - 10.4 fL AO Workflow SS Platelets (Bld) [#/Vol] 225 103/mcL Invalid Interpretation Code 130 - 400 10^3/mcL AO Workflow SS RBC (Bld) [#/Vol] 5.88 106/mcL Invalid Interpretation Code 4.20 - 5.40 10^6/mcL AO Workflow SS WBC (Bld) [#/Vol] 6.4 103/mcL Invalid Interpretation Code 4.6 - 10.8 10^3/mcL AO Workflow SS LABORATORYOrdered By: SYSTEM SYSTEM on 06-08-2022 GFR 85 ml/min/1.73sqm Invalid Interpretation Code AO Chemistry S GFR Non- 70 ml/min/1.73sqm Invalid Interpretation Code AO Chemistry S LABORATORYOrdered By: Bernadette Stone on 03-26-2022 Basophil, Absolute 0.1 103/mcL Invalid Interpretation Code 0.0 - 0.2 10^3/mcL AO Workflow SS Basophils/100 WBC (Bld) 0.9 % Invalid Interpretation Code 0.0 - 2.5 % AO Workflow SS Eosinophil, Absolute 0.2 103/mcL Invalid Interpretation Code 0.0 - 0.4 10^3/mcL AO Workflow SS Eosinophils/100 WBC (Bld) 1.9 % Invalid Interpretation Code 0.0 - 7.0 % AO Workflow SS Erythrocyte distribution width (RBC) [Ratio] 14.5 % Invalid Interpretation Code 11.5 - 14.5 % AO Workflow SS Hematocrit (Bld) [Volume fraction] 52.9 % Invalid Interpretation Code 37.0 - 47.0 % AO Workflow SS Hemoglobin (Bld) [Mass/Vol] 18.0 G/dL Invalid Interpretation Code 12.0 - 16.0 G/dL AO Workflow SS Lymphocyte, Absolute 2.2 103/mcL Invalid Interpretation Code 0.8 - 3.9 10^3/mcL AO Workflow SS Lymphocytes/100 WBC (Bld) 27.4 % Invalid Interpretation Code 10.0 - 50.0 % AO Workflow SS MCH (RBC) [Entitic mass] 31.0 pg Invalid Interpretation Code 27.0 - 31.2 pg AO Workflow SS MCHC 34.0 G/dL Invalid Interpretation Code 33.0 - 37.0 G/dL AO Workflow SS MCV (RBC) [Entitic vol] 91.2 fL Invalid Interpretation Code 80.0 - 94.0 fL AO Workflow SS Monocyte, Absolute 0.5 103/mcL Invalid Interpretation Code 0.2 - 1.0 10^3/mcL AO Workflow SS Monocytes/100 WBC (Bld) 5.9 % Invalid Interpretation Code 1.7 - 13.0 % AO Workflow SS Neutrophil, Absolute 5.1 103/mcL Invalid Interpretation Code 2.9 - 6.2 10^3/mcL AO Workflow SS Neutrophils/100 WBC (Bld) 63.9 % Invalid Interpretation Code 37.0 - 80.0 % AO Workflow SS Platelet mean volume (Bld) [Entitic vol] 8.1 fL Invalid Interpretation Code 7.4 - 10.4 fL AO Workflow SS Platelets (Bld) [#/Vol] 322 103/mcL Invalid Interpretation Code 130 - 400 10^3/mcL AO Workflow SS RBC (Bld) [#/Vol] 5.80 106/mcL Invalid Interpretation Code 4.20 - 5.40 10^6/mcL AO Workflow SS WBC 8.0 103/mcL Invalid Interpretation Code 4.6 - 10.8 10^3/mcL AO Workflow SS LABORATORYOrdered By: Claudette Figueredo on 03-26-2022 Calcium [Mass/Vol] 9.1 mg/dL Invalid Interpretation Code 8.4 - 10.2 mg/dL AO ADM SS Chloride [Moles/Vol] 99 mmol/L Invalid Interpretation Code 98 - 107 mmol/L AO ADM SS CO2 [Moles/Vol] 31 mmol/L Invalid Interpretation Code 23 - 31 mmol/L AO ADM SS Creatinine [Mass/Vol] 0.85 mg/dL Invalid Interpretation Code 0.55 - 1.02 mg/dL AO ADM SS Electrolyte Balance 7.0 mEq/L Invalid Interpretation Code 4.0 - 15.0 mEq/L AO ADM SS Glucose [Mass/Vol] 99 mg/dL Invalid Interpretation Code 80 - 115 mg/dL AO ADM SS Natriuretic peptide.B prohormone N-Terminal [Mass/Vol] 162 pg/mL Invalid Interpretation Code 0 - 125 pg/mL AO ADM SS Potassium [Moles/Vol] 4.3 mmol/L Invalid Interpretation Code 3.5 - 5.1 mmol/L AO ADM SS Sodium [Moles/Vol] 137 mmol/L Invalid Interpretation Code 136 - 145 mmol/L AO ADM SS TSH Qn 1.86 m[IU]/L Invalid Interpretation Code 0.36 - 3.74 mcIU/mL AO ADM SS Urea nitrogen [Mass/Vol] 12 mg/dL Invalid Interpretation Code 7 - 18 mg/dL AO ADM SS Urea nitrogen/Creatinine [Mass ratio] 14 ratio Invalid Interpretation Code 7 - 27 ratio AO ADM SS LABORATORYOrdered By: SYSTEM SYSTEM on 03-26-2022 GFR 81 ml/min/1.73sqm Invalid Interpretation Code AO Chemistry S GFR Non- 67 ml/min/1.73sqm Invalid Interpretation Code AO Chemistry S Monocyte distribution width Auto (Bld) [Entitic vol] Not Performed 1 *NA* (03/26/22 3:09 PM) Invalid Interpretation Code 0.00 - 20.00 AO Hematology S Comment on above: Result Comment: MDW testing performed only on adult ER patients between the ages of 18-89 years. LABORATORYOrdered By: Berta Ortiz on 11-28-2021 Albumin BCP dye [Mass/Vol] 3.4 G/dL Invalid Interpretation Code 3.4 - 4.8 G/dL AO ADM SS Albumin/Globulin [Mass ratio] 0.9 {ratio} Invalid Interpretation Code 1.1 - 2.5 ratio AO ADM SS ALP [Catalytic activity/Vol] 95 U/L Invalid Interpretation Code 40 - 135 U/L AO ADM SS ALT With P-5'-P [Catalytic activity/Vol] 17 U/L Invalid Interpretation Code 14 - 59 U/L AO ADM SS AST With P-5'-P [Catalytic activity/Vol] 16 U/L Invalid Interpretation Code 10 - 40 U/L AO ADM SS Bilirubin [Mass/Vol] 0.3 mg/dL Invalid Interpretation Code 0.2 - 1.0 mg/dL AO ADM SS Calcium [Mass/Vol] 8.9 mg/dL Invalid Interpretation Code 8.4 - 10.2 mg/dL AO ADM SS Chloride [Moles/Vol] 98 mmol/L Invalid Interpretation Code 98 - 107 mmol/L AO ADM SS CO2 [Moles/Vol] 29 mmol/L Invalid Interpretation Code 23 - 31 mmol/L AO ADM SS Creatinine [Mass/Vol] 0.74 mg/dL Invalid Interpretation Code 0.55 - 1.02 mg/dL AO ADM SS Electrolyte Balance 11.0 mEq/L Invalid Interpretation Code 4.0 - 15.0 mEq/L AO ADM SS Globulin 3.6 G/dL Invalid Interpretation Code AO ADM SS Glucose [Mass/Vol] 189 mg/dL Invalid Interpretation Code 80 - 115 mg/dL AO ADM SS Potassium [Moles/Vol] 3.8 mmol/L Invalid Interpretation Code 3.5 - 5.1 mmol/L AO ADM SS Protein [Mass/Vol] 7.0 G/dL Invalid Interpretation Code 6.4 - 8.2 G/dL AO ADM SS Sodium [Moles/Vol] 138 mmol/L Invalid Interpretation Code 136 - 145 mmol/L AO ADM SS Urea nitrogen [Mass/Vol] 15 mg/dL Invalid Interpretation Code 7 - 18 mg/dL AO ADM SS Urea nitrogen/Creatinine [Mass ratio] 20 ratio Invalid Interpretation Code 7 - 27 ratio AO ADM SS Vit. D 25-Hydroxy 80.9 ng/mL Invalid Interpretation Code AO ADM SS LABORATORYOrdered By: SYSTEM SYSTEM on 11-28-2021 GFR 95 ml/min/1.73sqm Invalid Interpretation Code AO Chemistry S GFR Non- 78 ml/min/1.73sqm Invalid Interpretation Code AO Chemistry S LABORATORYOrdered By: Bernadette Stone on 09-04-2021 Albumin BCP dye [Mass/Vol] 4.0 G/dL Invalid Interpretation Code 3.4 - 4.8 G/dL AO ADM SS Albumin/Globulin [Mass ratio] 1.1 {ratio} Invalid Interpretation Code 1.1 - 2.5 ratio AO ADM SS ALP [Catalytic activity/Vol] 106 U/L Invalid Interpretation Code 40 - 135 U/L AO ADM SS ALT With P-5'-P [Catalytic activity/Vol] 29 U/L Invalid Interpretation Code 14 - 59 U/L AO ADM SS AST With P-5'-P [Catalytic activity/Vol] 25 U/L Invalid Interpretation Code 10 - 40 U/L AO ADM SS Bilirubin [Mass/Vol] 0.2 mg/dL Invalid Interpretation Code 0.2 - 1.0 mg/dL AO ADM SS Calcium [Mass/Vol] 9.1 mg/dL Invalid Interpretation Code 8.4 - 10.2 mg/dL AO ADM SS Chloride [Moles/Vol] 97 mmol/L Invalid Interpretation Code 98 - 107 mmol/L AO ADM SS CO2 [Moles/Vol] 31 mmol/L Invalid Interpretation Code 23 - 31 mmol/L AO ADM SS Creatinine [Mass/Vol] 0.74 mg/dL Invalid Interpretation Code 0.55 - 1.02 mg/dL AO ADM SS Electrolyte Balance 8.0 mEq/L Invalid Interpretation Code AO ADM SS Globulin 3.8 G/dL Invalid Interpretation Code AO ADM SS Glucose [Mass/Vol] 101 mg/dL Invalid Interpretation Code 80 - 115 mg/dL AO ADM SS Potassium [Moles/Vol] 4.7 mmol/L Invalid Interpretation Code 3.5 - 5.1 mmol/L AO ADM SS Protein [Mass/Vol] 7.8 G/dL Invalid Interpretation Code 6.4 - 8.2 G/dL AO ADM SS Sodium [Moles/Vol] 136 mmol/L Invalid Interpretation Code 136 - 145 mmol/L AO ADM SS TSH Qn 1.53 m[IU]/L Invalid Interpretation Code 0.36 - 3.74 mcIU/mL AO ADM SS Urea nitrogen [Mass/Vol] 18 mg/dL Invalid Interpretation Code 7 - 18 mg/dL AO ADM SS Urea nitrogen/Creatinine [Mass ratio] 24 ratio Invalid Interpretation Code 7 - 27 ratio AO ADM SS Vit. D 25-Hydroxy 20.0 ng/mL Invalid Interpretation Code AO ADM SS LABORATORYOrdered By: Jessie lAvarado on 09-04-2021 Basophil, Absolute 0.10 103/mcL Invalid Interpretation Code 0.00 - 0.19 10^3/mcL AO Auto Heme SS Basophils/100 WBC (Bld) 0.9 % Invalid Interpretation Code 0.0 - 2.5 % AO Auto Heme SS Eosinophil, Absolute 0.20 103/mcL Invalid Interpretation Code 0.00 - 0.40 10^3/mcL AO Auto Heme SS Eosinophils/100 WBC (Bld) 2.4 % Invalid Interpretation Code 0.0 - 7.0 % AO Auto Heme SS Erythrocyte distribution width (RBC) [Ratio] 13.5 % Invalid Interpretation Code 11.5 - 14.5 % AO Auto Heme SS Hematocrit (Bld) [Volume fraction] 48.2 % Invalid Interpretation Code 37.0 - 47.0 % AO Auto Heme SS Hemoglobin (Bld) [Mass/Vol] 16.2 G/dL Invalid Interpretation Code 12.0 - 16.0 G/dL AO Auto Heme SS Lymphocyte, Absolute 2.10 103/mcL Invalid Interpretation Code 0.77 - 3.85 10^3/mcL AO Auto Heme SS Lymphocytes/100 WBC (Bld) 26.8 % Invalid Interpretation Code 10.0 - 50.0 % AO Auto Heme SS MCH (RBC) [Entitic mass] 31.6 pg Invalid Interpretation Code 27.0 - 31.2 pg AO Auto Heme SS MCHC (RBC) [Mass/Vol] 33.6 G/dL Invalid Interpretation Code 33.0 - 37.0 G/dL AO Auto Heme SS MCV (RBC) [Entitic vol] 94.2 fL Invalid Interpretation Code 80.0 - 94.0 fL AO Auto Heme SS Monocyte, Absolute 0.60 103/mcL Invalid Interpretation Code 0.15 - 1.00 10^3/mcL AO Auto Heme SS Monocytes/100 WBC (Bld) 7.8 % Invalid Interpretation Code 1.7 - 13.0 % AO Auto Heme SS Neutrophil, Absolute 4.90 103/mcL Invalid Interpretation Code 2.85 - 6.16 10^3/mcL AO Auto Heme SS Neutrophils/100 WBC (Bld) 62.1 % Invalid Interpretation Code 37.0 - 80.0 % AO Auto Heme SS Platelet mean volume (Bld) [Entitic vol] 8.7 fL Invalid Interpretation Code 7.4 - 10.4 fL AO Auto Heme SS Platelets (Bld) [#/Vol] 299 103/mcL Invalid Interpretation Code 130 - 400 10^3/mcL AO Auto Heme SS RBC (Bld) [#/Vol] 5.11 106/mcL Invalid Interpretation Code 4.20 - 5.40 10^6/mcL AO Auto Heme SS WBC (Bld) [#/Vol] 7.80 103/mcL Invalid Interpretation Code 4.60 - 10.80 10^3/mcL AO Auto Heme SS LABORATORYOrdered By: SYSTEM SYSTEM on 09-04-2021 GFR 95 ml/min/1.73sqm Invalid Interpretation Code AO Chemistry S GFR Non- 78 ml/min/1.73sqm Invalid Interpretation Code AO Chemistry S Vital Signs Date Time Vital Sign Value Performing Clinician Facility 02-17-2024 12:20-0400 Body temperature 98.06 [degF] DR ELIAZAR BARRIOS DO [facility] 02-17-2024 12:20-0400 Diastolic Blood Pressure Non-Invasive 82 mm[Hg] DR ELIAZAR BARRIOS DO [facility] 02-17-2024 12:20-0400 Heart rate 71 /min DR ELIAZAR BARRIOS DO [facility] 02-17-2024 12:20-0400 Reason For Taking VItal Signs DR ELIAZAR BARRIOS DO [facility] 02-17-2024 12:20-0400 Respiratory rate 16 /min DR ELIAZAR BARRIOS DO [facility] 02-17-2024 12:20-0400 Systolic Blood Pressure Non-Invasive 111 mm[Hg] DR ELIAZAR BARRIOS DO [facility] 02-17-2024 11:54-0400 Heart rate 81 /min DR ELIAZAR BARRIOS DO [facility] 02-17-2024 11:45-0400 Body temperature 97.7 [degF] DR ELIAZAR BARRIOS DO [facility] 02-17-2024 11:45-0400 Diastolic Blood Pressure Non-Invasive 82 mm[Hg] DR ELIAZAR BARRIOS DO [facility] 02-17-2024 11:45-0400 Heart rate 84 /min DR ELIAZAR BARRIOS DO [facility] 02-17-2024 11:45-0400 Reason For Taking VItal Signs DR ELIAZAR BARRIOS DO [facility] 02-17-2024 11:45-0400 Respiratory rate 16 /min DR ELIAZAR BARRIOS DO [facility] 02-17-2024 11:45-0400 Systolic Blood Pressure Non-Invasive 129 mm[Hg] DR ELIAZAR BARRIOS DO [facility] 01-05-2024 11:19-0400 Body temperature 97.88 [degF] MYA AVALOS 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 [facility] 01-05-2024 11:19-0400 Diastolic Blood Pressure Non-Invasive 76 mm[Hg] MYA AVALOS APRN-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 [facility] 01-05-2024 11:19-0400 Heart rate 73 /min MYA AVALOS 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 [facility] 01-05-2024 11:19-0400 Reason For Taking VItal Signs MYA AVALOS APRN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 [facility] 01-05-2024 11:19-0400 Respiratory rate 18 /min MYA AVALOS APRN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 [facility] 01-05-2024 11:19-0400 Systolic Blood Pressure Non-Invasive 130 mm[Hg] MYA BUSHANNA 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 [facility] 01-05-2024 10:37-0400 Heart rate 73 /min MYATELLY CASTROEmeka 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 [facility] 01-05-2024 10:37-0400 Respiratory rate 18 /min MYA BUSHANNA 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 [facility] 01-05-2024 08:31-0400 Heart rate 73 /min MYA BUSHANNA 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 [facility] 01-05-2024 07:09-0400 Body temperature 98.06 [degF] MYA BUSHANNA 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 [facility] 01-05-2024 07:09-0400 Diastolic Blood Pressure Non-Invasive 66 mm[Hg] MYATELLY BUSHANNA 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 [facility] 01-05-2024 07:09-0400 Heart rate 64 /min MYA BUSHANNA 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 [facility] 01-05-2024 07:09-0400 Reason For Taking VItal Signs MYATELLY BUSHANNA 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 [facility] 01-05-2024 07:09-0400 Respiratory rate 16 /min MYA BUSHANNA 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 [facility] 01-05-2024 07:09-0400 Systolic Blood Pressure Non-Invasive 126 mm[Hg] MYATELLY BUSHANNA 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 [facility] 01-05-2024 06:08-0400 Heart rate 78 /min MYA AVALOS 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 [facility] 01-05-2024 03:16-0400 Body temperature 98.06 [degF] MYA AVALOS 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 [facility] 01-05-2024 03:16-0400 Diastolic Blood Pressure Non-Invasive 79 mm[Hg] MYA CASTROEmeka 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 [facility] 01-05-2024 03:16-0400 Heart rate 71 /min MYA AVALOS 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 [facility] 01-05-2024 03:16-0400 Reason For Taking VItal Signs MYA CASTROEmeka 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 [facility] 01-05-2024 03:16-0400 Systolic Blood Pressure Non-Invasive 128 mm[Hg] MYA AVALOS 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 [facility] 01-05-2024 00:03-0400 Heart rate 74 /min MYA CASTROEmeka 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 [facility] 01-04-2024 20:00-0400 Heart rate 81 /min MYA CASTROEmeka 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 [facility] 01-04-2024 15:07-0400 Heart rate 75 /min MYA CASTROEmeka 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 [facility] 01-03-2024 15:18-0400 Body height 162.6 cm MYA CASTROEmeka 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 [facility] 01-03-2024 15:18-0400 Body weight 66.2 kg MYA CASTROEmeka 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 [facility] 01-03-2024 15:18-0400 Body weight 25.04 kg/m2 MYA AVALOS APRN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 [facility] 01-03-2024 14:25-0400 Blood Pressure Location MYA AVALOS 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 [facility] 01-03-2024 14:25-0400 Blood Pressure Method MYA AVALOS 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 [facility] 01-03-2024 13:48-0400 Blood Pressure Location MYA AVALOS 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 [facility] 01-03-2024 13:48-0400 Blood Pressure Method MYA AVALOS 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 [facility] 01-03-2024 12:35-0400 Blood Pressure Location MYA AVALOS 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 [facility] 01-03-2024 12:35-0400 Blood Pressure Method MYA AVALOS 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 [facility] 01-03-2024 12:12-0400 SaO2% (BldA) [Mass fraction] 90.7 % MYA AVALOS APRN-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 [facility] S 04-30-2023 15:32-0400 Body temperature 98.1 [degF] Dr. Eliazar Barrios Work Phone: [facility] 04-30-2023 15:32-0400 Diastolic blood pressure 66 mm[Hg] Dr. Elizaar Barrios Work Phone: [facility] 04-30-2023 15:32-0400 Heart rate 63 /min Dr. Eliazar Barrios Work Phone: [facility] 04-30-2023 15:32-0400 Inhaled oxygen flow rate 2 L/min Dr. Eliazar Barrios Work Phone: [facility] 04-30-2023 15:32-0400 Respiratory rate 18 /min Dr. Eliazar Barrios Work Phone: [facility] 04-30-2023 15:32-0400 SaO2% (BldA) [Mass fraction] 90 % Dr. Eliazar Barrios Work Phone: [facility] 04-30-2023 15:32-0400 Systolic blood pressure 109 mm[Hg] Dr. Eliazar Barrios Work Phone: [facility] 04-30-2023 04:29-0400 Body mass index (BMI) [Ratio] 24 kg/m2 Dr. Eliazar Barrios Work Phone: [facility] 04-30-2023 04:29-0400 Body weight 63.[address] Eliazar Barrios Work Phone: [facility] 04-29-2023 00:37-0400 Body height 162.[address] Eliazar Barrios Work Phone: [facility] 04-29-2023 00:00-0400 Heart rate 67 /min [facility] 04-29-2023 00:00-0400 Respiratory rate 25 /min [facility] 04-29-2023 00:00-0400 SaO2% (BldA) [Mass fraction] 91 % [facility] 04-28-2023 23:20-0400 Body temperature 97.8 [degF] [facility] 04-28-2023 23:20-0400 Diastolic blood pressure 83 mm[Hg] [facility] 04-28-2023 23:20-0400 Inhaled oxygen flow rate 5 L/min [facility] 04-28-2023 23:20-0400 Systolic blood pressure 115 mm[Hg] [facility] 04-28-2023 20:57-0400 Body height 162.56 cm [facility] 01-18-2023 13:30-0400 Diastolic blood pressure 85 mm[Hg] [facility] 01-18-2023 13:30-0400 Heart rate 90 /min [facility] 01-18-2023 13:30-0400 Respiratory rate 24 /min [facility] 01-18-2023 13:30-0400 SaO2% (BldA) [Mass fraction] 92 % [facility] 01-18-2023 13:30-0400 Systolic blood pressure 102 mm[Hg] [facility] 01-18-2023 12:58-0400 Inhaled oxygen flow rate 2 L/min [facility] 01-18-2023 11:44-0400 Body height 162.56 cm [facility] 01-18-2023 11:44-0400 Body mass index (BMI) [Ratio] 25.7 kg/m2 [facility] 01-18-2023 11:44-0400 Body temperature 98.2 [degF] [facility] 01-18-2023 11:44-0400 Body weight 67.9 kg [facility] 07-22-2022 11:10-0500 Heart rate 76 /min RAMSES MARTINEZ MD [facility] 07-22-2022 11:10-0500 Respiratory rate 20 /min RAMSES MARTINEZ MD [facility] 07-22-2022 11:00-0500 Diastolic Blood Pressure Non-Invasive 90 [address] [facility] 07-22-2022 11:00-0500 Heart rate 86 /min RAMSES MARTINEZ MD [facility] 07-22-2022 11:00-0500 Systolic Blood Pressure Non-Invasive 154 [address] [facility] 07-22-2022 08:14-0500 Body temperature 98.06 [degF] RAMSES MARTINEZ MD [facility] 07-22-2022 08:14-0500 Diastolic Blood Pressure Non-Invasive 79 [address] [facility] 07-22-2022 08:14-0500 Heart rate 81 /min RAMSES MARTINEZ MD [facility] 07-22-2022 08:14-0500 Respiratory rate 20 /min RAMSES MARTINEZ MD [facility] 07-22-2022 08:14-0500 Systolic Blood Pressure Non-Invasive 141 [address] [facility] 07-22-2022 05:21-0500 Body temperature 98.24 [degF] RAMSES MARTINEZ MD [facility] 07-22-2022 05:21-0500 Diastolic Blood Pressure Non-Invasive 95 1 RAMSES MARTINEZ MD [address] [place] [address] 07-22-2022 05:21-0500 Reason For Taking VItal Signs RAMSES MARTINEZ MD [address] [place] [address] 07-22-2022 05:21-0500 Systolic Blood Pressure Non-Invasive 161 1 RAMSES MARTINEZ MD [address] [place] [address] 07-21-2022 23:16-0500 Reason For Taking VItal Signs RAMSES MARTINEZ MD [address] [place] [address] 07-21-2022 20:31-0500 Reason For Taking VItal Signs RAMSES MARTINEZ MD [facility] 07-21-2022 08:34-0500 Body height 162.6 cm RAMSES MARTINEZ MD [address] [place] [address] 07-21-2022 08:27-0500 Body temperature 98.24 [degF] RAMSES MARTINEZ MD [facility] 07-21-2022 08:27-0500 Mean blood pressure 104 mm[Hg] RAMSES MARTINEZ MD [address] [place] [address] 07-21-2022 03:46-0500 Body temperature 98.24 [degF] RAMSES MARTINEZ MD [address] [place] [address] 07-21-2022 03:46-0500 Heart rate 74 /min RAMSES MARTINEZ MD [facility] 07-21-2022 03:46-0500 Mean blood pressure 105 mm[Hg] RAMSES MARTINEZ MD [facility] 07-21-2022 02:48-0500 Heart rate 76 /min RAMSES MARTINEZ MD [facility] 07-20-2022 23:24-0500 Body temperature 98.6 [degF] RAMSES MARTINEZ MD [facility] 07-20-2022 23:24-0500 Heart rate 83 /min RAMSES MARTINEZ MD [facility] 07-20-2022 23:24-0500 Mean blood pressure 99 mm[Hg] RAMSES MARTINEZ MD [facility] 07-20-2022 11:09-0500 SaO2% (BldA) [Mass fraction] 99.4 % RAMSES MARTINEZ MD [facility] 07-20-2022 02:33-0500 SaO2% (BldA) [Mass fraction] 88.7 % RAMSES MARTINEZ MD [facility] 07-19-2022 16:52-0500 SaO2% (BldA) [Mass fraction] 95.3 % RAMSES MARTINEZ MD [facility] 07-19-2022 11:19-0500 Heart rate 84 /min RAMSES MARTINEZ MD [facility] 07-19-2022 08:05-0500 Heart rate 71 /min RAMSES MARTINEZ MD [facility] 07-19-2022 07:43-0500 SaO2% (BldA) [Mass fraction] 95.9 % RAMSES MARTINEZ MD [facility] 07-19-2022 04:13-0500 SaO2% (BldA) [Mass fraction] 95.5 % RAMSES MARTINEZ MD [facility] Encounters Encounter Date Encounter Type Care Provider Facility Start: 01-26-2025 End: 01-26-[address] ELIAZAR BARRIOS DO [facility] Start: 10-18-2024 End: 10-18-2024 ambulatory RAHUL CHURCHILL MD [facility] Start: 10-18-2024 End: 10-18-2024 Patient encounter procedure RAHUL CHURCHILL MD [facility] Start: 09-25-2024 End: 09-25-[address] ELIAZAR BARRIOS DO [facility] Start: 09-25-2024 End: 09-25-2024 Patient encounter procedure REBECCA NAZARIO MD [facility] Start: 08-30-2024 ambulatory Mickie Connell Facility :[facility] Start: 08-30-2024 End: 09-03-2024 Evaluation and management of inpatient Achintya Connell Facility:[facility] Start: 08-14-2024 End: 08-14-[address] ELIAZAR BARRIOS DO [facility] Start: 08-14-2024 End: 08-14-[address] ELIAZAR BARRIOS DO [facility] Start: 05-12-2024 End: 05-12-2024 ambulatory STEPH 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 Facility[facility] Start: 05-12-2024 End: 05-12-2024 Patient encounter procedure STEPH 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 [facility] Start: 04-21-2024 End: 04-21-[address] ELIAZAR BARRIOS DO Facility: Start: 04-21-2024 End: 04-21-[address] ELIAZAR BARRIOS DO [facility] Start: 04-07-2024 End: 04-07-[address] ELIAZAR BARRIOS DO Facility:[facility] Start: 04-07-2024 End: 04-07-2024 Patient encounter procedure STEPH 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 [facility] Start: 03-30-2024 End: 03-30-[address] ELIAZAR BARRIOS DO Facility:[facility] Start: 03-30-2024 End: 03-30-[address] ELIAZAR BARRIOS DO [facility] Start: 02-17-2024 End: 02-17-[address] ELIAZAR BARRIOS DO Facility:[facility] Start: 02-17-2024 End: 02-17-[address] ELIAZAR BARRIOS DO [facility] Start: 01-03-2024 End: 01-05-2024 Evaluation and management of inpatient MYA AVALOS 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 [facility] Start: 12-31-2023 End: 01-14-2024 ambulatory STEPH 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 Facility:[facility] Start: 12-31-2023 End: 01-14-2024 Patient encounter procedure STEPH 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 [facility] Start: 09-30-2023 End: 09-30-[address] ELIAZAR BARRIOS DO Facility:[facility] Start: 09-30-2023 End: 09-30-2023 Patient encounter procedure REBECCA NAZARIO MD [facility] Start: 09-07-2023 End: 09-07-2023 ambulatory RAHUL CHURCHILL MD Facility:[facility] Start: 09-07-2023 End: 09-07-2023 Patient encounter procedure RAHUL CHURCHILL MD [facility] Start: 07-05-2023 End: 07-05-[address] ELIAZAR BARRIOS DO Facility:[facility] Start: 07-05-2023 End: 07-05-[address] ELIAZAR BARRIOS DO [facility] Start: 06-30-2023 End: 06-30-[address] ELIAZAR BARRIOS DO Facility:[facility] Start: 04-30-2023 Non-patient / Non-visit Dr. Cally Barrios Work Phone: [facility] Work Phone: Start: 04-29-2023 End: 04-30-2023 Evaluation and management of inpatient Dr. Eliazar Barrios Work Phone: [facility] Work Phone: Start: 04-29-2023 Non-patient / Non-visit Dr. Cally Barrios Work Phone: [facility] Start: 04-29-2023 Non-patient / Non-visit Dr. Cally Barrios Work Phone: [facility] Work Phone: Start: 04-28-2023 Evaluation and management of inpatient [facility] Work Phone: Start: 04-28-2023 Non-patient / Non-visit Dr. Cally Barrios Work Phone: [facility] Work Phone: Start: 01-18-2023 End: 01-18-2023 Emergency department patient visit [facility] Start: 12-10-2022 End: 12-10-[address] ELIAZAR BARRIOS DO [facility] Start: 11-09-2022 End: 11-09-2022 Patient encounter procedure RAHUL CHURCHILL MD [facility] Start: 10-01-2022 End: 10-01-2022 Patient encounter procedure REBECCA NAZARIO MD [facility] Start: 09-02-2022 End: 09-02-2022 Patient encounter procedure RAHUL CHURCHILL MD [facility] Start: 08-18-2022 End: 08-18-2022 Patient encounter procedure RAHUL CHURCHILL MD [facility] Start: 07-24-2022 End: 07-24-2022 Patient encounter procedure CATRACHITA HOLGUIN 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 [facility] Start: 07-19-2022 End: 07-22-2022 Evaluation and management of inpatient RAMSES MARTINEZ MD [facility] Start: 06-08-2022 End: 06-08-[address] ELIAZAR BARRIOS DO [facility] Start: 05-04-2022 End: 05-04-[address] ELIAZAR BARRIOS DO [facility] Start: 03-26-2022 End: 03-26-[address] ELIAZAR BARRIOS DO [facility] Start: 11-28-2021 End: 11-28-[address] ELIAZAR BARRIOS DO [facility] Start: 09-09-2021 End: 09-09-[address] ELIAZAR BARRIOS DO [facility] Start: 09-04-2021 End: 09-04-[address] ELIAZAR BARRIOS DO [facility] Procedures Date Procedure Procedure Detail Performing Clinician Start: 04-28-2023 Plain chest X-ray Start: 04-06-2023 Catheterization of b oth left and right heart DR ELIAZAR BARRIOS DO Start: 01-18-2023 Plain chest X-ray Start: 09-06-[address] ELIAZAR BARRIOS DO Appendectomy DR ELIAZAR Singleton DO Colonoscopy DR ELIAZAR Singleton DO Dilation and curetta ge of uterus DR ELIAZAR BARRIOS DO Entire knee meniscus (body structure) DR ELIAZAR BARRIOS DO Comment on above: Right knee Ligation of fallopian tube D Areli BARRIOS DO Tonsillectomy and adenoidectomy DR ELIAZAR BARRIOS DO Plan of Treatment Date Care Activity Detail Author Start: 05-03-2023 Prothrombin time [facility] Start: 05-03-2023 [facility] Start: 05-02-2023 Prothrombin time [facility] Start: 05-02-2023 [facility] Start: 05-01-2023 Prothrombin time [facility] Start: 05-01-2023 [facility] Start: 04-30-2023 Patient discharge [facility] Start: 04-29-2023 Admission procedure [facility] Start: 04-29-2023 Following clinical pathway protocol [facility] Start: 04-29-2023 Ambulation without limitation [facility] Start: 04-29-2023 Assessment of risk o f venous thromboembolism [facility] Start: 04-29-2023 Catheterization of vein [facility] Start: 04-29-2023 Elevation of affected extremity [facility] Start: 04-29-2023 Inhalation therapy procedure [facility] Start: 04-29-2023 Insertion of cathete r into peripheral vein [facility] Start: 04-29-2023 Measuring intake and output [facility] Start: 04-29-2023 Notification of physician [facility] Start: 04-29-2023 Oxygen therapy [facility] Start: 04-29-2023 Patient education [facility] Start: 04-29-2023 Providing care accor ding to standard [facility] Start: 04-29-2023 Referral to flame brazing machine operator [facility] Start: 04-29-2023 Referral to service [facility] Start: 04-29-2023 [facility] Start: 04-28-2023 Verification routine [facility] Start: 04-28-2023 Admission procedure [facility] Start: 04-28-2023 [facility] Start: 01-18-2023 Electrocardiographic procedure [facility] Start: 01-18-2023 [facility] Hemoglobin A1c/Hemog lobin.total in Blood [facility] Patient Education ED AFIB [facility] Work Phone: Patient referral [facility] Work Phone: Immunizations Immunization Date Immunization Notes Care Provider Fa cili 06-27-2024 influenza virus vacc ine, unspecified formulation REBECCA NAZARIO MD [facility] 06-27-2024 pneumococcal conjuga te vaccine, [address] ELIAZAR BARRIOS DO [facility] CV 06-27-2024 SARS-CoV-2 (COVID-19 ) Ad26 vaccine, recombinant DR ELIAZAR BARRIOS DO [facility] 02-09-[address] ELIAZAR BARRIOS DO [facility] 12-06-2023 RSV vaccine preF3, recombinant MYA RACHELLEANNA 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 [facility] 12-06-2023 SARS-CoV-2 NVX-CoV23 73 [id number].[id number] MYA AVALOS 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 [facility] 12-06-2023 SARS-CoV-2 rS-protei n [id number].[id number] DR ELIAZAR BARRIOS DO [facility] 06-15-2023 influenza, high dose seasonal, preservative-free; Translations: [Fluad Quadrivalent PF ] DR ELIAZAR BARRIOS DO [facility] 06-11-2022 COVID-19, mRNA, LNP- S, bivalent booster, PF, 30 mcg/0.3 mL dose; Translations: [Pfizer-BioNTech COVID-19 (12y+) Bivalent Booster Vaccine PF] RAMSES MARTINEZ MD [facility] 06-11-2022 SARSCoV2 mRNA(hqfsnitpsqk68o+)biv al vac; Translations: [Pfizer-BioNTech COVID-19 (12y+) Bivalent Booster Vaccine PF] RAHUL CHURCHILL MD [facility] 06-11-2022 influenza, high dose seasonal, preservative-free RAMSES MARTINEZ MD [facility] 09-02-2021 pneumococcal polysaccharide vaccine, 23 valent; Translations: [Pneumovax 23] DR ELIAZAR BARRIOS DO [facility] 07-11-2021 influenza virus vacc ine, unspecified formulation DR ELIAZAR BARRIOS DO [facility] 07-11-2021 SARS-CoV-2 (COVID-19 ) mRNA-[address] ELIAZAR BARRIOS DO [facility] 12-06-2020 SARS-CoV-2 (COVID-19 ) mRNA-[address] ELIAZAR BARRIOS DO [facility] 11-08-2020 SARS-CoV-2 (COVID-19 ) mRNA-[address] ELIAZAR BARRIOS DO [facility] 09-27-2017 tetanus toxoid, redu juliana diphtheria toxoid, and acellular pertussis vaccine, adsorbed DR ELIAZAR BARRIOS DO [facility] 06-13-2014 influenza, injectabl e, quadrivalent, preservative free DR ELIAZAR BARRIOS DO [facility] Comment on above: Early/Late Reason: M ed Not Available Payers Date Payer Category Payer Private Health Insurance [id number] [id number] 2024 Self-pay [id number] 2024 Medicare [id number] 2023 Private Health Insurance [facility] [id number] 2014 Unknown [facility] [id number] 2014 Unknown JOLIE [id number] 1955 Unknown [id number] 2.16.840.1.486217.3.579.2.62 1953 Unknown [id number] 2.16.840.1.765668.3.579.2.62 1953 Unknown [id number] 2.16.840.1.217240.3.579.2. 1955 Unknown [id number] 2.16.840.1.842796.3.579.2. 1953 Unknown [id number] 2.16.840.1.863184.3.579.2.62 1953 Unknown [id number] 2.16.840.1.238598.3.579.2. 1953 Unknown [id number] 2.16.840.1.887047.3.579.2.62 1953 Unknown [id number] 2.16.840.1.904693.3.579.2.62 1953 Unknown [id number] 2.16.840.1.801972.3.579.2.62 1953 Unknown [id number] 2.16.840.1.528786.3.579.2.62 1953 Unknown [id number] 2.16.840.1.904039.3.579.2.62 1953 Unknown [id number] 2.16.840.1.226055.3.579.2.62 1953 Unknown [id number] 2.16.840.1.635928.3.579.2.627 1953 Unknown [id number] 2.16.840.1.702330.3.579.2.627 1953 Unknown [id number] 2.16.840.1.910855.3.579.2.627 1955 Unknown [id number] 2.16.840.1.516286.3.579.2.627 Medicare ANTHEM MEDICARE PPO [id number] Unknown [id number] 2.16.840.1.754269.3.579.2.462 Unknown [id number] 2.16.840.1.994737.3.579.2.462 Unknown [id number] 2.16.840.1.237931.3.579.2.462 Unknown [id number] 2.16.840.1.801338.3.579.2.462 Unknown [id number] 2.16.840.1.327794.3.579.2.462 Unknown [id number] 2.16.840.1.188179.3.579.2.462 Unknown [id number] 2.16.840.1.349455.3.579.2.462 Unknown [id number] 2.16.840.1.782418.3.579.2.462 Unknown [id number] 2.16.840.1.480691.3.579.2.462 Unknown [id number] 2.16.840.1.773635.3.579.2.462 Social History Date Type Detail Facility Start: 07-28-2019 End: 01-03-2024 Ex-smoker (finding) [facility] Comment on above: tobacco/smoke exposu re: daily patient states she s till smoked occasionally, but is done now Start: 1955 Sex Assigned At Female A [facility] Start: 01-18-2023 End: 04-29-2023 Tobacco smoking status NHIS Unknown if ever smoked [facility] [place] [facility] Start: 03-01-2019 Sex Female (finding) [facility] Goals Date Patient Goal Desired Activity /State Functional Status Date Assessment Result Facility 01-05-2024 Functional Status Other: 7AM-212PM [facility] 01-05-2024 Functional Status Door open, Non-Slip footwear, Room check performed [facility] 01-05-2024 Functional Status Prachi Sorto [facility] 01-05-2024 [facility] Functional Status Demonstrates C orrect Call Light Use Yes [facility] 01-04-2024 Functional Status Prachi Sorto [facility] 01-04-2024 Functional Status Positioning Repositions self [facility] 01-04-2024 Functional Status Lunch Percent 100 [facility] 01-04-2024 Functional Status Ambulation in Room [facility] 01-04-2024 [facility]-03[facility] 01-03-[facility] Functional Status Prachi francis [facility] 01-03-2024 Functional Status Multilevel beau e, 2nd floor bedroom [facility] 01-03-2024 Functional Status Independent Prachi francis [facility] 04-30-2023 Functional status Ambulates [facility] Work Phone: 07-22-2022 Functional Status Watching TV [facility] 07-22-2022 Functional Status Done [facility] 07-22-2022 Functional Status [facility] 07-22-2022 Functional Status [facility] 07-22-[address] [facility] 07-21-20[address] [facility] 07-21-2022 Functional [address] [facility] 07-21-2022 Functional [address] [facility] 07-20-2022 Functional Status Living Situati on Home independently, Home with family care [facility] 07-20-2022 Functional Status [facility] Mental Status Date Assessment Result Facility 01-05-2024 Mental Status Oriented x 4 [facility] 01-04-2024 Mental Status [facility] 01-04-2024 Mental Status [facility] 04-30-2023 Cognitive function Voice/Name [facility] Work Phone: 04-28-2023 Cognitive function Awake;Alert;A ppropriate;Follow s Commands [facility] Work Phone: 01-18-2023 Cognitive function Level Of Cons ciousness Awake;Alert;Appropriate;Follow s Commands [facility] Work Phone: 07-22-2022 Mental Status Orientation Oriented x 4 [facility] 07-22-2022 Mental Status [facility] 07-21-2022 Mental Status [facility] 07-20-2022 Mental Status Orientation Asse ssment Oriented x 4 [facility] 07-19-2022 Mental Status [facility] 07-19-2022 Mental Status [facility] Clinical Notes 05-04-2022 to 09-03-2024 Note Date & Type Note Facility 09-03-2024 Note [facility] [address] [place] [address] Discharge Summary 09/03/24 1440 MR#: [id number] Acct: [id number] Name: JANENE VASQUEZ Mikey Rep #: [id number] : 1955 69 From: Benji Knowles MD PCP: Dr. Eliazar Barrios, DO Status:ADM IN Location: [address] Providers Date of Admission: 08/30/24 Date of Discharge: 09/03/24 Primary Care Physician: Dr. Eliazar Barrios, DO Consultations 08/30/24 18:25 Consult: Cardiology Routine Consulting Provider: Benjie Mortensen Reason for Consult: Afib RVR EMERGENT Consult: Yes MD Notified: Yes Date Notified: 08/30/24 Time Notified: 16:52 Method of Notification: ED Physician Initiated 09/01/24 07:56 Consult: Harvester Operator / Pulmonary Medicine Routine Consulting Provider: Intensivists/Pulmonary Med Reason for Consult: respiratory distress/CODP exac EMERGENT Consult: No MD Notified: Yes Date Notified: 09/01/24 Time Notified: 07:57 Method of Notification: Verbal Reason For Visit: AFIB Diagnosis Discharge Diagnosis (1) History of emphysema: Status: Acute Code(s): Z87.09 - Personal history of other diseases of the respiratory system Plan 69-year-old female was admitted with have A-fib with RVR complicated with hypotension that required cardioversion and started on amiodarone drip. #A-fib with RVR: The EKG shows slight aVR elevation with diffuse depression. STEMI was ruled out by STEMI on-call flame brazing machine operator. Patient was synchronized x 3 hide patient briefly was in sinus rhythm back in A-fib therefore started on amiodarone drip and anticoagulation with Eliquis. Patient was seen by flame brazing machine operator. Changed to IV amiodarone to amiodarone oral. Downgraded to PCU. Recent echo in April 2023 shows EF 60%,, mild MR, moderate pulmonary hypertension, moderate global RV systolic dysfunction mildly mildly enlarged stage I diastolic dysfunction, -Continue home beta-theodore, with close monitoring of blood pressure in the ICU 09/02: Probably patient got A-fib RVR from COPD exacerbation: Heart rate is controlled and blood pressure elevated. Losartan and Toprol-XL resumed at lower dose elevated gradually increase it as per tolerated. 09/03: At times, patient heart rate goes 55 but otherwise in 60s and low 70s. BP controlled 131/75. Advised to hold metoprolol hold for heart less than 50 or systolic blood pressure less than 100 mmHg. Prescription given for amiodarone. #Coronary artery disease -She had a back pain at the time of presentation, initial troponin was normal repeat troponin went up probably due to cardioversion. -Continue home aspirin Chronic HFpEF/hypertension: Patient also on Entresto, and torsemide, resumed. #COPD/emphysema exacerbation -Patient is being managed on scheduled bronchodilator, IV Solu-Medrol, Mucinex, incentive spirometry and Pep. Continue oxygen supplementation -Continues to smoke, importance of quitting smoking given the COPD was discussed and emphasized Advised to follow-up with pulmonary clinic 09/03: Patient given prescription for burst therapy of prednisone, Mucinex DM. Continue incentive spirometry and PEP for 1 week #DVT prophylaxis -Already anticoagulated with Eliquis Discharge medication reconciliation done. Discharge follow-up instructions completed. Discharge process discussed with the patient and all questions were answered to patient's satisfaction. Follow with PCP in 1 to 2 weeks Total time spent, exact 35 minutes on discharge meds reconciliation, examination, coordination of care with nurses and ancillary staff, review of imaging and blood test and discussion with the patient on follow-up instructions. Medications at Discharge Home Medications ferrous sulfate 325 mg (65 mg iron) tablet 325 mg PO DAILY anemia 01/18/23 sacubitril 24 mg-valsartan 26 mg tablet (Entresto) 1 tab PO BID heart 01/18/23 cholecalciferol (vitamin D3) 50 mcg (2,000 unit) capsule 50 mcg PO DAILY supplement 04/29/23 aspirin 81 mg tablet,delayed release 81 mg PO DAILY@0800 heart health 30 days #30 tabs 04/30/23 atorvastatin 20 mg tablet 20 mg PO QHS cholesterol 30 days #30 tabs 04/30/23 apixaban 5 mg tablet (Eliquis) 5 mg PO BID blood thinner 08/30/24 fluticasone fur. 100 mcg-umeclid 62.5 mcg-vilant 25 mcg inhalat.powder (Trelegy Ellipta) 1 ea inhalation DAILY wheezing 08/30/24 torsemide 20 mg tablet 20 mg PO DAILY diuretic 08/30/24 fluticasone fur. 100 mcg-umeclid 62.5 mcg-vilant 25 mcg inhalat.powder (Trelegy Ellipta) 1 inh inhalation DAILY COPD 08/31/24 amiodarone 200 mg tablet 200 mg PO DAILY 30 days #30 tabs 09/03/24 dextromethorphan-guaifenesin ER 60 mg-1,200 mg tab,extend release,12hr 1 tab PO BID 7 days #14 tabs 09/03/24 lactulose 20 gram/30 mL oral solution 10 g (15 mL) PO BID PRN constipation #1,500 mL 09/03/24 metoprolol succinate 50 mg tablet,extended release 24 hr 50 mg PO BID blood pre (more content not included)... [facility] 04-21-2024 Note ORIGINAL EXAMINATION: BONE DENSITOMETRY 04/21/2024 12:19 pm TECHNIQUE: A bone density dual x-ray absorptiometry (DEXA) scan was performed of the axial (e.g. hips, spine) and/or appendicular (e.g. radius) skeleton as appropriate. COMPARISON: 09/09/2021 HISTORY: ORDERING SYSTEM PROVIDED HISTORY: Reason for Exam: screening FINDINGS: T Score Left Femoral Neck: -3.0 Left Femoral Neck: 0.517 (g/cm2) T Score Left Hip: -2.8 Left Hip: 0.603 (g/cm2) T Score Lumbar Spine: 0.3 Lumbar Spine: 1.078 (g/cmd2) BMD change from previous hip: 9.1% BMD change from previous lumbar Spine: 12.2% IMPRESSION: Osteoporosis by WHO criteria. World Health Organization criteria: (Comparing with young normal sex matched population) - Normal: T-score at or above -1 SD (standard deviation) - Osteopenia: T-score between -1 and -2.5 SD - Osteoporosis: T-score at or below -2.5 SD The NOF recommends that FDA-approved medical therapies be considered in post-menopausal women and men age >/= 50 years with a: * Hip or vertebral fracture, or * T-score of /= 20% for major osteoporotic fractures or * >/= 3% for hip fractures All treatment decisions require clinical judgement and consideration of individual patient factors, including patient preferences, comorbidities, previous drug use, risk factors not captured in the FRAX registered model (e.g., frailty, falls, vitamin D deficiency, increased bone turnover, interval significant decline in bone density) and possible under- or over-estimation of fracture risk by FRAX. Interpreted by: Christiano Alonso DO Preliminary Report By: Christiano Alonso DO Electronically signed By Christiano Alonso DO Dictated Date: 04/21/2024 12:28:50 PM Prelim Date: 04/21/2024 12:29:39 PM Sign Date: 04/21/2024 12:29:39 PM Ordering Provider: ELIAZAR BARRIOS [facility] 01-08-2024 Note . MICRO - Microbiology PROCEDURE: Blood Culture (bacterial) [*1] SOURCE: Blood BODY SITE: COLLECTED DATE/TIME: 01/03/2024 12:06 EDT RECEIVED DATE/TIME: 01/03/2024 14:30 EDT START DATE/TIME: 01/03/2024 14:30 EDT FREE TEXT SOURCE: FINAL REPORTS Final Report [] Verified Date/Time/Personnel: 01/08/2024 14:59 EDT Blood Culture: No Growth at 5 days. PRELIMINARY REPORTS Preliminary Report [] Verified Date/Time/Personnel: 01/03/2024 15:59 EDT Culture has been received in lab and is no growth to date. Routine cultures are held for 5 days. Performing Locations *1: This test was performed at: [address], [facility] , [facility] ([place]) 01-08-2024 Note . MICRO - Microbiology PROCEDURE: Blood Culture (bacterial) [*1] SOURCE: Blood BODY SITE: COLLECTED DATE/TIME: 01/03/2024 12:06 EDT RECEIVED DATE/TIME: 01/03/2024 14:30 EDT START DATE/TIME: 01/03/2024 14:30 EDT FREE TEXT SOURCE: FINAL REPORTS Final Report [] Verified Date/Time/Personnel: 01/08/2024 14:59 EDT Blood Culture: No Growth at 5 days. PRELIMINARY REPORTS Preliminary Report [] Verified Date/Time/Personnel: 01/03/2024 15:59 EDT Culture has been received in lab and is no growth to date. Routine cultures are held for 5 days. Performing Locations *1: This test was performed at: [address], [address] [place] [address] ([place]) 01-05-2024 Note Discharge Instructions Thank you for allowing [facility] to assist you with your healthcare needs. The following is important discharge information regarding your hospital visit. Your Care Team [facility] Your Diagnosis (HFpEF) heart failure with preserved ejection fraction Chronic respiratory failure COPD exacerbation Decreased oxygen level HTN (hypertension) Paroxysmal A-fib What to do next Scheduled Follow-Up Appointments Appointment Type When With Where Contact InformationPC OV Hospital Follow-Up 01/11/2024 01:30 PM EDT ELIAZAR BARRIOS DO [address] [phone] CV OV 03/22/2024 01:30 PM EDT DANIELITO STEPH 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 [facility] PC OV 03/23/2024 09:30 AM EDT ELIAZAR BARRIOS DO [address] [phone] Follow Up Appointments Follow Up with ELIAZAR BARRIOS DO When 01/11/2024 01:30 PM EDT Why: This is your post-hospital follow-up appointment. Where: [address] [place] [phone] The Following Activity and Diet Have Been Ordered for You Discharge Activity - Ordered -- Resume your pre-hospitalization activity, 01/05/24 9:26:00 EDT Discharge Diet - Ordered -- No changes were made to your diet during your hospital stay. Please resume your pre hospitalization diet on discharge., 01/05/24 9:26:00 EDT Allergies NKA Medications Please ask your primary doctor or pharmacist before taking any other medication not listed, including over the counter drugs, herbal medications, vitamins and or supplements as they may interact with your home medications. What How Much When Instructions Last Dose New guaiFENesin (Mucinex 600 mg oral tablet, extended release) 2 tab(s) by mouth Every 12 hours Duration: 7 Days Pickup at [facility]/pharmacy #[id number] New predniSONE (prednisone 10mg tab (TAPER)) 40-08-85-34-20-56-5mg x 2days/dose by mouth Once a day Duration: 14 Days 1X1ptny,9D2xivi,7Q5xbqo,4A0vylp, 1C4rxbt,9B6saok, X2 days. Pickup at [facility]/pharmacy #[id number] Unchanged acetaminophen (acetaminophen 500 mg oral tablet) 1 tab(s) by mouth Every 4 hours as needed for as needed for fever Unchanged albuterol (ProAir HFA MDI (90 mcg/ inh) inhalation aerosol) See instructions INHALE 1 PUFF BY MOUTH NEEDED Unchanged albuterol-ipratropium (albuterol-ipratropium 2.5 mg-0.5 mg/ 3 mL inhalation solution) 3 Milliliter by inhalation Four (4) times a day Unchanged amLODIPine (amLODIPine 2.5 mg oral tablet) 1 tab(s) by mouth Once a day Unchanged apixaban (Eliquis 5 mg oral tablet) 1 tab(s) by mouth Two (2) times a day Unchanged aspirin (aspirin 81 mg oral delayed release tablet) 1 tab(s) by mouth Once a day Unchanged atorvastatin (atorvastatin 20 mg oral tablet) 1 tab(s) by mouth Once a day Unchanged cholecalciferol (Vitamin D3 50 mcg (2000 intl units) oral capsule) 1 cap by mouth Every day Unchanged denosumab (Prolia 60 mg/ mL subcutaneous solution) 1 Milliliter Subcutaneous Every 6 months Unchanged ferrous sulfate (IRON (ferrous sulfate 325 mg) 65 mg oral tablet) 1 tab(s) by mouth Once a day Take with food. Unchanged furosemide (Lasix 40 mg oral tablet) 1 tab(s) by mouth Once a day Unchanged metoprolol (metoprolol succinate 50 mg oral TABLET extended release) 1 tab(s) by mouth Two (2) times a day Unchanged Misc Medication Unchanged sacubitril-valsartan (Entresto 24 mg-26 mg oral tablet) 1 tab(s) by mouth Two (2) times a day Unchanged umeclidinium (Incruse Ellipta 62.5 mcg/ inh inhalation powder) 1 puff(s) by inhalation Once a day Duration: 90 Days Pharmacy Information [facility]/pharmacy #[id number]: [address] [place], [place] [phone] Please take this list to your next doctor s visit. Bring all medications you take, including over the counter medications, herbals and other supplements with you to your doctor s visit. Patients and families are reminded to discard old lists and to update any records with all medication providers or retail pharmacies. Education Materials Chest and Lung Problems A number of problems can affect the lungs and chest. These include masses, infections, airway diseases, and other diseases. Common types of chest and lung problems are listed below. Masses A mass is a lump of abnormal tissue. It can be tissue that's not cancer (benign). Or it can be cancer (malignant). If a mass is found in the lung or chest, the healthcare provider will want to take a sample of tissue (biopsy) of it. This tissue sample helps the provider find if the mass is cancer. The mass may need to be removed even if it is not cancer. Infections Infections are illnesses caused by bacteria, viruses, or fungi. Examples of lung infections include tuberculosis and pneumonia. Lung infections can cause fluid to build up in the lungs or chest. Some lung infections are spread from one person to another through the air. Most lung infections can be treated with antibiotics if they are caused by bacteria. Or they may be treated with other medicines. Airway diseases Airway diseases affect the tubes (airways) that carry oxygen and other gases in and out of the lungs. They usually cause the airways to narrow or to become blocked. Examples of airway diseases are asthma and bronchiectasis. Smoking is often the cause of airway diseases. For example, smoking can lead to chronic obstructive pulmonary disease (COPD). COPD refers to a group of diseases that destroy the lungs and make it hard to breathe. COPD includes emphysema and chronic bronchitis. People with airway diseases often say they feel as if they are trying to breathe out through a straw. Other serious diseases Other things can also cause lung disease. These include exposure to asbestos. 6796-9020 [employer]. [address] [place] [address]. All rights reserved. This information is not intended as a substitute for professional medical care. Always follow your healthcare professional's instructions. Additional Information VACCINATE! IT SAVES LIVES! Members of the community who have not yet received the COVID-19 vaccine and would like to receive it can visit one of [facility] vaccine clinics. There are many vaccine clinic locations within the [facility]. For locations and available times, please visit https://gettheshot.coronavirus.o hio.gov/. It is important to note that some COVID mobile vaccine clinics are held outdoors and may be canceled in rainy or stormy conditions. To learn more about pediatric vaccinations (ages 5-11), we invite you to visit the [facility] webpage. https://www.[facility].org/p ages/7368-Abphq-Vhwcomxklou-Freq eyihcr-Mwggd-Iwytyxtob.html To learn more about the COVID-19 vaccine, we invite you to visit the CDC website for a list of frequently asked questions.https://www.cdc.gov/co ronavirus/2019-ncov/vaccines/faq .html [email or web address] Patient Portal Access Instructions: Stay connected with your healthcare team and access your personal medical information anytime with the [email or web address] Patient Portal. Please follow the directions below to create your [employer] account: 1.Access the email account you provided upon registration to the hospital/physician office.2.Look for an invitation email from [facility].3.Open the email and access the invitation link: Accept Invitation to [email or web address].4.Fill in the required george to create your account. To access your account, visit [email or web address]. Click the blue button labeled Access Patient Portal and then log in with the username and password that you created in the steps above. You will be able to view your test results, lab results, a summary of your visits, upcoming appointments and more. There is also a convenient messaging option where you can send secure messages to your provider. In addition, you will have the ability to download any documents or summaries to your computer and/or send the information securely to a physician. Remember that your healthcare information is confidential, so carefully consider who you will allow to register on the [email or web address] Patient Portal for access to your information. You can also access the [email or web address] Patient Portal on the [facility] vicenta. Simply click on Patient Portal and then log into your account. If you would like to receive a full copy of your medical records, please contact the [facility] Medical Records Department by calling [phone], Wednesday through Wednesday between 8 a.m. and 4:30 p.m. HOW TO SAFELY DISPOSE OF PRESCRIPTION MEDICATIONS Please use one of the following methods to safely dispose of your unused medications. 1.Use a drug disposal kit: the drug disposal pouch allows you to safely discard your old and unused drugs. Ask your nurse to give you one when you are discharged.2.Visit a local take-back location: Many local pharmacies and police departments have programs that collect old and unwanted prescription drugs. Call your local pharmacy or go to http://[employer] [employer]/1U2Va8g to find one close to you.3.Make use of household items: Use cat litter or old coffee grounds to dispose medications if other options are not available. Mix your drugs with these household products, seal them in an airtight container and throw it into the garbage. Call [facility]: [phone] to be sure your drugs can be disposed of in this way. Some medicines may require a different approach.4.Never flush your medications down the toilet. IF YOU HAVE BEEN PRESCRIBED AN OPIOID FOR PAIN If you have been prescribed an opioid (such as hydrocodone, oxycodone or morphine), it is critical to understand the possible side effects and risks of opioid pain medications. Even when taken as directed, opioids can have several side effects including: Tolerance, meaning you might need to take more of a medication for the same pain relief. Nausea, vomiting and/or constipation. Sleepiness, dizziness, dry mouth, confusion, depression or itching. Physical dependence, meaning you have withdrawal symptoms when a medication is stopped, can develop within a few days. KNOW YOUR RESPONSIBILITIES It is important to know exactly how much and how often to take the opioid pain medications you are prescribed. Never take opioids in higher amounts or more often than prescribed. Do not combine opioids with alcohol or other drugs that cause drowsiness, such as benzodiazepines, also known as benzos, including diazepam and alprazolam, muscle relaxants or sleep aids. Never sell or share prescription opioids. This is illegal. Store opioids in a secure place and out of reach of others (including children, family, friends and visitors). The last page of this document has been signed and retained as a CHART COPY. Signatures Patient Education Materials Chest and Lung Problems Medication Leaflets My discharge plan and instructions have been reviewed and explained to me and IDEION PENNY J understand my current condition and have read and understand these discharge instructions. I have received a written copy of the plan/instructions. If I have questions, I am aware that I should contact my doctor. 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 Patient presented to [facility] emergency department on 01/03/2024 under the direction of her PCP. She was in to see her PCP on the same day for a 3-day history of increasing dyspnea with no change in sputum production dyspnea. PCP note reviewed. Oxygen saturation was 78-82 percent on 2 L nasal cannula. Blood pressure was 90/68 and she was tachypneic. In the emergency department she was afebrile, normotensive with oxygen saturation of 86% on baseline dose of 2 L. This was increased to 4 L with improvement in oxygenation. She was hypercapnic with CO2 of 62. She does appear to be a retainer. No leukocytosis. BMP unremarkable. Lactic acid 0.8. Troponin 8. X-ray chest was unremarkable. She was having expiratory wheezing. She was given ceftriaxone, azithromycin, Solu-Medrol, DuoNebs, 1 L normal saline and subsequently admitted for COPD exacerbation. Overnight patient remained afebrile and hemodynamically stable. Oxygen saturations 89 to 93% on 3 L nasal cannula. No leukocytosis. Creatinine 1.08. Mildly above baseline. Patient denies any fever or chills. Reports that she is feeling better this morning. Feels that her chest is more loose and she is able to cough. Denies any symptoms otherwise. Objective Vitals and Measurements T: 36.5 C (Oral) TMIN: 36.5 C (Oral) TMAX: 36.8 C (Oral) HR: 87(Apical) RR: 24 BP: 119/80 SpO2: 92% HT: 162.6 cm WT: 66.2 kg BMI: 25.04 Intake and Output 7AM Yesterday to 7AM Today Intake and Output (Last 24 hours) Intake Oral Intake 220.00 Output Stool Count 3.00 Urine Count 2.00 Total Summary Total Intake 220.00 Total Output 0.00 Fluid Balance 220.00 Physical Exam GEN: Appears chronically ill CHEST: Normal S1 and S2. Rhythm is regular. Expiratory wheezing, slight improvement from previous day. ABD: Positive bowel sounds x 4 quads. Soft, nondistended, nontender. EXT: No significant deformity or joint abnormality. No edema. Peripheral pulses intact. NEURO: Sensation grossly intact SKIN: Skin color normal PSYCH: The mental examination revealed the patient was alert and oriented x 4 Weight Dosing Weight: 66.2 kg (01/03/24) Medications Medications (20) Active Scheduled: (12) albuterol - ipratropium 2.5 mg-0.5 mg/3 mL Inhal Nahomy UD 3 mL, Inhalation, q4hRT amLODIPine 5 mg tablet 2.5 mg 0.5 tab(s), Oral, qDay apixaban 5 mg tablet 5 mg 1 tab(s), Oral, BID aspirin 81 mg EC 81 mg 1 tab(s), Oral, qDay atorvastatin 10 mg tablet 20 mg 2 tab(s), Oral, qDay budesonide 0.5 mg/2 mL Susp UD 0.5 mg 2 mL, Inhalation, BIDRT ferrous sulfate 325 mg Tablet 325 mg 1 tab(s), Oral, qDay furosemide 40 mg tablet 40 mg 1 tab(s), Oral, qDay guaifenesin 600 mg ER 1,200 mg 2 tab(s), Oral, q12h methylPREDNISolone succ 40mg (40 mg/1mL) after dilution 60 mg 1.5 mL, IV Push, q8h metoprolol succinate 50 mg ER tablet 50 mg 1 tab(s), Oral, BID sacubitril-valsartan 24-26 mg oral tablet 1 tab(s), Oral, BID Continuous: (0) PRN: (8) acetaminophen 325 mg Tablet 650 mg 2 tab(s), Oral, q4h acetaminophen 325 mg Tablet 650 mg 2 tab(s), Oral, q4h albuterol - ipratropium 2.5 mg-0.5 mg/3 mL Inhal Nahomy UD 3 mL, Inhalation, q2hRT benzonatate 100 mg Capsule 100 mg 1 cap(s), Oral, TID calcium carbonate 500 mg Chewable 500 mg 1 tab(s), Chewed, TID dextrose 50% Solution Disp syringe 50 mL 25 gram(s) 50 mL, IV Push, AsDirected melatonin 3 mg tablet 6 mg 2 tab(s), Oral, qHS ondansetron 2 mg/ 1 mL 2 mL INJ 4 mg 2 mL, IV Push, q4h Lab Results 01/03 05:28 WBC: 5.8 Hgb: 14.2 Hct: 41.6 Platelet: 162 Neutrophil %: 87.7 H Glucose Level: 177 H Sodium Level: 144 Potassium Level: 4.4 BUN: 18 Creatinine Lvl (s): 1.08 H 01/02 12:06 WBC: 6.7 Hgb: 15.7 Hct: 46.6 Platelet: 167 Neutrophil %: 66.8 Glucose Level: 99 Sodium Level: 142 Potassium Level: 3.9 BUN: 12 Creatinine Lvl (s): 0.81 EKG EKG [ED AOH] - Completed -- 01/03/24 11:49:00 EDT, 01/03/24 11:49:00 EDT Assessment/Plan 1. COPD exacerbation 2. Chronic respiratory failure 3. Paroxysmal A-fib 4. (HFpEF) heart failure with preserved ejection fraction COPD exacerbation no increase in sputum, no change in color or consistency. She has no fever or leukocytosis. She did receive antibiotics in the emergency department. Will hold off on continuing those for now. Continue DuoNebs every 4 hours, Mucinex twice daily, Solu-Medrol 60 mg every 8 hours. Encourage incentive spirometer. Acapella device. Patient reports that she is feeling a little better today and her lung sounds have slightly improved today. Chronic respiratory failure secondary to the above. Currently requiring 3-4 L nasal cannula. Baseline dose is 2 L. Atrial fibrillation continue metoprolol and apixaban. Rate controlled. HFpEF not in acute exacerbation HTN- SBP goal 140 or less. Continue home antihypertensives. DVT prophylaxis: Apixaban Code Status: Full code Plan of care discussed with patient. All questions answered. Patient verbalizes understanding is agreeable to plan of care. This dictation was performed using voice recognition software and may include grammatical and/or spelling errors. Anticipated Date of Discharge 01/04 or 01/05 Time Spent 42 minutes Digitally Signed by MYA AVALOS on 01/04/2024 09:58 AM [facility] 01-03-2024 Note Date of Service 01/03/2024 Chief Complaint Patient comes to the ED from her PCP with concern for low oxygen saturation. Patient is on 2L NC at baseline. History of Present Illness 68-year-old female with past medical history significant for CAD, paroxysmal A-fib anticoagulated with warfarin, HTN, HFpEF, osteoporosis, COLE, atrophic kidney, COPD, chronic respiratory failure on 2 L nasal cannula. Patient presented to [facility] emergency department on 01/03/2024 under the direction of her PCP. She was in to see her PCP on the same day for a 3-day history of increasing dyspnea with no change in sputum production dyspnea. PCP note reviewed. Oxygen saturation was 78-82 percent on 2 L nasal cannula. Blood pressure was 90/68 and she was tachypneic. In the emergency department she was afebrile, normotensive with oxygen saturation of 86% on baseline dose of 2 L. This was increased to 4 L with improvement in oxygenation. She was hypercapnic with CO2 of 62. She does appear to be a retainer. No leukocytosis. BMP unremarkable. Lactic acid 0.8. Troponin 8. X-ray chest was unremarkable. She was having expiratory wheezing. She was given ceftriaxone, azithromycin, Solu-Medrol, DuoNebs, 1 L normal saline and subsequently admitted for COPD exacerbation. On exam today, pt denies any fever or chills. No headache or dizziness. Denies chest pain, palpitations. Admits cough, no sputum, dyspnea, wheezing. Denies N/V/D/C. No melena/hematochezia. No dysuria or hematuria. No new paresthesias. Review of Systems See HPI for specific ROS. All other systems reviewed and negative. Physical Exam Vitals and Measurements T: 36.8 C (Oral) TMIN: 36.7 C (Oral) TMAX: 36.8 C (Oral) HR: 84(Monitored) RR: 20 BP: 128/64 SpO2: 90% HT: 162.6 cm WT: 66.2 kg BMI: 25.04 Weight Dosing Weight: 66.2 kg (01/03/24) GEN: Appears chronically ill EYES: No conjunctival erythema, drainage. EOMI EARS: Hearing grossly intact. NOSE: No nasal discharge. THROAT: Oral cavity and pharynx pink and moist. CHEST: Normal S1 and S2. Rhythm is regular. Expiratory wheezing and fine crackles throughout ABD: Positive bowel sounds x 4 quads. Soft, nondistended, nontender. EXT: No significant deformity or joint abnormality. No edema. Peripheral pulses intact. NEURO: Sensation grossly intact SKIN: Skin color normal PSYCH: The mental examination revealed the patient was alert and oriented x 4 Lab Results 01/02 12:06 WBC: 6.7 Hgb: 15.7 Hct: 46.6 Platelet: 167 Neutrophil %: 66.8 Glucose Level: 99 Sodium Level: 142 Potassium Level: 3.9 BUN: 12 Creatinine Lvl (s): 0.81 Imaging Results and Diagnostics XR Chest 1 View Result Date: January 03, 2024 Verified By: BENJIE CALL MD CLINICAL STATEMENT: IMPRESSION: No acute radiographic findings. EKG EC01/03/24: Sinus rhythm Multiple premature complexes, vent & supraven LAD, consider left anterior fascicular block Left ventricular hypertrophy Electronic Signature: JACKIE DUBOSE DO 01/03/2024 12:36:31 Assessment/Plan 1. COPD exacerbation 2. Chronic respiratory failure 3. Paroxysmal A-fib 4. (HFpEF) heart failure with preserved ejection fraction COPD exacerbation no increase in sputum, no change in color or consistency. She has no fever or leukocytosis. She did receive antibiotics in the emergency department. Will hold off on continuing those for now. DuoNebs every 4 hours, Mucinex twice daily, Solu-Medrol 60 mg every 8 hours. Encourage incentive spirometer. Acapella device. Chronic respiratory failure secondary to the above. Currently requiring 4 L nasal cannula. Baseline dose is 2 L. Atrial fibrillation continue metoprolol and apixaban HFpEF not in acute exacerbation HTN- SBP goal 140 or less. Continue home antihypertensives. DVT prophylaxis: Apixaban Code Status: Full code Plan of care discussed with patient. All questions answered. Patient verbalizes understanding is agreeable to plan of care. This dictation was performed using voice recognition software and may include grammatical and/or spelling errors. Problem List/Past Medical History Ongoing Actinic keratoses Arthritis Atrophic kidney Basal cell carcinoma Cervical spinal stenosis CHF (congestive heart failure) Diastolic heart failure Eczema Emphysema lung Falls Foot drop Herpes zoster History of iron deficiency HTN (hypertension) Hyperglycemia Lung nodule NSTEMI (non-ST elevated myocardial infarction) Numbness of limbs Osteoporosis PAF (paroxysmal atrial fibrillation) Polycythemia Scoliosis Seasonal allergy Squamous cell carcinoma of skin Stool incontinence Unsteady gait Vertigo Vitamin D deficiency Historical Smoker Procedure/Surgical History Catheterization of both left and right heart: 04/2023 Breast augmentation: 1993 Appendectomy Tonsillectomy and adenoidectomy Tubal ligation Colonoscopy Medications Home Medications (15) Active acetaminophen 500 mg oral tablet 500 mg = 1 tab(s), PRN, Oral, q4h albuterol-ipratropium 2.5 mg-0.5 mg/3 mL inhalation solution 3 mL, Inhalation, QID amLODIPine 2.5 mg oral tablet 2.5 mg = 1 tab(s), Oral, qDay aspirin 81 mg oral delayed release tablet 81 mg = 1 tab(s), Oral, qDay atorvastatin 20 mg oral tablet 20 mg = 1 tab(s), Oral, qDay Eliquis 5 mg oral tablet 5 mg = 1 tab(s), Oral, BID Entresto 24 mg-26 mg oral tablet 1 tab(s), Oral, BID Incruse Ellipta 62.5 mcg/inh inhalation powder 1 puff(s), Inhalation, qDay IRON (ferrous sulfate 325 mg) 65 mg oral tablet 325 mg = 1 tab(s), Oral, qDay Lasix 40 mg oral tablet 40 mg = 1 tab(s), Oral, qDay metoprolol succinate 50 mg oral TABLET extended release 50 mg = 1 tab(s), Oral, BID Misc Medication ProAir HFA MDI (90 mcg/inh) inhalation aerosol See Instructions Prolia 60 mg/mL subcutaneous solution 60 mg = 1 mL, Subcutaneous, q6mo Vitamin D3 50 mcg (2000 intl units) oral capsule 2,000 unit(s) = 1 cap(s), Oral, Daily Allergies NKA Social History Smoking Status - 06/13/2014 Current every day smoker Alcohol Use: Current., 01/03/2024 Home/Environment Living situation: Home/Independent. Financial concerns: No. Domestic Concerns: Denies. Lives In: Multilevel home, 2nd floor bedroom. Current Home Treatments Nebulizer treatments, Oxygen therapy. Professional Skilled Services or Special Community Resources None. Spouse Name: Manuel. Marital Status: ., 01/03/2024 Nutrition/Health Type of diet: Regular. Caffeine intake amount: coffee; 2 servings/day. Appetite Fair. Eating Difficulties None. Enteral Feedings No. TPN Feedings No. Skin Breakdown No., 01/03/2024 Substance Abuse Use: Never., 07/28/2019 Tobacco Nicotine Use: Former smoker, quit more than 30 days ago., 01/03/2024 Family History Cancer: Father. Diabetes mellitus type 2: Brother. Heart disease: Sister and Brother. Immunizations pneumococcal 23-valent vaccine(Pneumovax: 0.5 mL (09/02/21) SARS-CoV-2 (COVID-19) mRNA-1273 vaccine: 0.25 unknown unit (07/11/21) SARS-CoV-2 (COVID-19) mRNA-1273 vaccine: 0.5 unknown unit (12/06/20) SARS-CoV-2 (COVID-19) [id number] vaccine: 0.5 unknown unit (11/08/20) tetanus/diphth/pertuss (Tdap) adult/adol: 0.5 unknown unit (09/27/17) Code Status Code Status - Ordered -- 01/03/24 13:46:00 EDT, Full Code, Constant Order Digitally Signed by MYA AVALOS on 01/03/2024 03:48 PM [facility] 01-03-2024 Hospital Discharge instructions Patient Education 01/03/2024 12:06:32 Chest and Lung Problems Chest and Lung Problems A number of problems can affect the lungs and chest. These include masses, infections, airway diseases, and other diseases. Common types of chest and lung problems are listed below. Masses A mass is a lump of abnormal tissue. It can be tissue that's not cancer (benign). Or it can be cancer (malignant). If a mass is found in the lung or chest, the healthcare provider will want to take a sample of tissue (biopsy) of it. This tissue sample helps the provider find if the mass is cancer. The mass may need to be removed even if it is not cancer. Infections Infections are illnesses caused by bacteria, viruses, or fungi. Examples of lung infections include tuberculosis and pneumonia. Lung infections can cause fluid to build up in the lungs or chest. Some lung infections are spread from one person to another through the air. Most lung infections can be treated with antibiotics if they are caused by bacteria. Or they may be treated with other medicines. Airway diseases Airway diseases affect the tubes (airways) that carry oxygen and other gases in and out of the lungs. They usually cause the airways to narrow or to become blocked. Examples of airway diseases are asthma and bronchiectasis. Smoking is often the cause of airway diseases. For example, smoking can lead to chronic obstructive pulmonary disease (COPD). COPD refers to a group of diseases that destroy the lungs and make it hard to breathe. COPD includes emphysema and chronic bronchitis. People with airway diseases often say they feel as if they are trying to breathe out through a straw. Other serious diseases Other things can also cause lung disease. These include exposure to asbestos. [id number] [address] reviews. [address] [place] [address]. All rights reserved. This information is not intended as a substitute for professional medical care. Always follow your healthcare professional's instructions. Follow Up Care 01/03/2024 11:41:07 With:ELIAZAR BARRIOS DO Address: [address] [place] [address] [place] [address]- [phone] When:01/11/2024 13:30:00 Comments:This is your post-hospital follow-up appointment. [facility] 01-03-2024 Evaluation + Plan note Extrac jessica from: Title:History and Physical Author:MYA AVALOS APRN-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 Date:01/03/24 1. COPD exacerbation 2. Chronic respiratory failure 3. Paroxysmal A-fib 4. (HFpEF) heart failure with preserved ejection fraction COPD exacerbation no increase in sputum, no change in color or consistency. She has no fever or leukocytosis. She did receive antibiotics in the emergency department. Will hold off on continuing those for now. DuoNebs every 4 hours, Mucinex twice daily, Solu-Medrol 60 mg every 8 hours. Encourage incentive spirometer. Acapella device. Chronic respiratory failure secondary to the above. Currently requiring 4 L nasal cannula. Baseline dose is 2 L. Atrial fibrillation continue metoprolol and apixaban HFpEF not in acute exacerbation HTN- SBP goal 140 or less. Continue home antihypertensives. DVT prophylaxis: Apixaban Code Status: Full code Plan of care discussed with patient. All questions answered. Patient verbalizes understanding is agreeable to plan of care. This dictation was performed using voice recognition software and may include grammatical and/or spelling errors. Future Appointments Appointment Date:01/11/2024 01:30:00 PM Scheduled Provider:ELIAZAR BARRIOS DO Location:[facility] Appointment Type:[facility] Hospital Follow-Up Appointment Date:03/22/2024 01:30:00 PM Scheduled Provider:STEPH ESTEVES Location:[facility] Appointment Type:CV OV Appointment Date:03/23/2024 09:30:00 AM Scheduled Provider:ELIAZAR BARRIOS DO Location:[facility] Appointment Type:[facility] Future Scheduled Tests Laboratory* Thyroid Stimulating Hormone 03/23/24 * Thyroid Stimulating Hormone 06/11/23 * A1C Hemoglobin 03/23/24 * Complete Blood Count 03/23/24 * Complete Blood Count 06/11/23 * Lipid Profile 03/23/24 * Vitamin D Level 03/23/24 * Vitamin D Level 06/11/23 * Complete Metabolic Panel 03/23/24 * Complete Metabolic Panel 06/11/23 [facility] 04-29-2024 Note ORIGINAL EXAMINATION: ONE XRAY VIEW OF THE CHEST 01/03/2024 12:43 pm COMPARISON: 05/07/2021, CT thorax 09/30/2023 HISTORY: ORDERING SYSTEM PROVIDED HISTORY: Reason for Exam: sob Shortness of breath FINDINGS: The cardiomediastinal silhouette appears unchanged. The aorta is atherosclerotic. Bilateral breast implants compromise the evaluation. No focal consolidation, large effusion, vascular congestion, or pneumothorax. Surgical change seen in the spine. IMPRESSION: No acute radiographic findings. Interpreted by: Benjie Call MD Preliminary Report By: Benjie Call MD Electronically signed By Benjie Call MD Dictated Date: 01/03/2024 12:51:08 PM Prelim Date: 01/03/2024 12:52:08 PM Sign Date: 01/03/2024 12:52:08 PM Ordering Provider: [facility] NoteSinus rhythm Multiple premature complexes, vent & supraven LAD, consider left anterior fascicular block Left ventricular hypertrophy Electronic Signature: JACKIE DUBOSE 01/03/2024 12:36:[address] [place] [address] 08-25-2023 Discharge summary Author Marion Muñiz [facility] April 30, 2023 10:51am Note Date/Time April 30, 2023 10 :52am [facility] Medical Records Department [address] [place] [address] Instructions for Home/Discharge Instructions 04/30/23 1050 MR#: [id number] Acct: [id number] Name: JANENE VASQUEZ Rep #:[id number] : 1955 67 From: Marion Muñiz MD PCP: Dr. Eliazar Barrios, Status: ADM IN Discharge Instructions Diet Discharge Diet: Low fat / Low cholesterol Activity Discharge Activity: - (See discharge instruction section.) May resume sexual activity in: 10-14 days Weight Bearing Status: Weight bearing as tolerated Keep extremity elevated above heart level: Operative Extremity Dressing / Incision Call your doctor if your incision/area has: Sudden Increased Bleeding, IncreasedPain/ Swelling, Foul Smelling Discharge and Swelling at the incision site Call your doctor if you observe: Fever of 101 or Higher, Shortness of breath, Chest pain, Increased palpitations (irregular heartbeat) and Uncontrolled pain Follow Up Care Test Results: Test results from this visit will be discussed in further detail at your follow- up appointment, if applicable. Discharge Plan Admission Admit Date/Time: 04/29/23 15:43 Primary Reason for Your Visit: NSTEMI w/ heavily calcified coronary arteries, PAF w/ RVR w/ overload Attending Provider: Marion Muñiz Primary Care Provider: Eliazar Barrios Consulting Providers: Marixa Gama; Parker Lee Instructions Additional Instructions / Restrictions: DISCHARGE INSTRUCTION: CARDIOLOGY PCI CATH INSTRUCTIONS Lifting: Must be less than 5 lbs for 5 days, No restrictions after 14 days Shower: Yes Climb stairs: Yes Bathing in tub or submerged water: No, until cleared per Cardiology at follow- up(call office if any concerns [phone] and may leave voicemail if after hours). Walkin minutes 3 times daily, increase as tolerated. Driving: Resume in 7 days Sexual activity: Resume in 14 days Regular activity: Resume 14 days NEW MEDICATIONS: During your admission your metoprolol and a low-dose statin therapy was added in addition to a baby daily aspirin secondary to notable coronary artery disease. Fortunately at this time no stenting was necessary butsignificant lifestyle recommendations need to be instituted. We strongly recommend complete tobacco cessation. In addition a low-dose amlodipine was also started to assist with blood pressure and help control chest discomfort. Recurrent discomfort please do not hesitate to return to the ED for evaluation or you may also contact the cardiology office prior to your follow-up visit. Discharge Orders/Prescriptions Prescriptions: New atorvastatin 20 mg Tablet 20 mg PO QHS 30 Days Qty: 30 0RF metoprolol succinate 50 mg Tablet Extended Release 24 Hr 50 mg PO BID 30 Days Qty: 60 0RF amlodipine 2.5 mg Tablet 2.5 mg PO DAILY 30 Days Qty: 30 0RF aspirin 81 mg Tablet,Delayed Release (Dr/Ec) 81 mg PO DAILY@0800 30 Days Qty: 30 0RF Continued albuterol sulfate [ProAir HFA] 1 PUFF inhaler 1 puff inhalation Q4H PRN PRN (Reason: Sob &/Or Wheezing) Patient Comments: breathing Entresto 24-26 mg tablet 1 tab PO BID Patient Comments: TAKE 1 TABLET BY MOUTH TWICE A DAY ferrous sulfate 325 mg (65 mg iron) tablet 325 mg PO DAILY Patient Comments: TAKE 1 TABLET BY MOUTH EVERY OTHER DAY WITH FOOD cholecalciferol (vitamin D3) 50 mcg (2,000 unit) capsule 50 mcg PO DAILY Patient Comments: TAKE 1 CAPSULE BY MOUTH EVERY DAY warfarin 5 mg tablet 5 mg PO DAILY Patient Comments: PLEASE SEE ATTACHED FOR DETAILED DIRECTIONS Changed furosemide 20 mg tablet 20 mg PO BID 30 Days Qty: 60 0RF Patient Comments: TAKE 1 TABLET BY MOUTH EVERY DAY Discontinued metoprolol succinate 50 mg tablet extended release 24 hr 50 mg PO DAILY Patient Comments: TAKE 1 TABLET BY MOUTH EVERY DAY Referrals / Follow Up: Parker Lee MD [Med Staff - Active Staff] - (Follow-up in the office in 2-4 weeks, may see ORDER DISPATCHER.) Eliazar Barrios DO [Primary Care Provider] - (Follow-up within 1-2 days for INR and in 3-5 days to review admission.) Disposition Disposition (needs filled in before D/C Order can be placed): Home, Self Care 04/30/23 1051<Electronically signed by Marion Muñiz MD>Marion Muñiz MD CC: Dr. Parker Lee MD; Dr. Marixa Gama DO; Dr. Eliazar Barrios DO ~ Signed [facility] Work Phone: 1(545) 229-980208-25-2023 Progress note Author [facility] April 30, 2023 6:09am Note Date/Time April 30, 2023 6: 09am [facility] Medical Records Department [address] [place] [address] Progress Note - Hospitalist 04/30/23608 MR#: [id number] Acct: [id number] Name: JANENE VASQUEZ Rep #:[id number] : 1955 67 From: Marion Muñiz MD PCP: Dr. Eliazar Barrios DO Status: ADM IN Location: [place] [address] Reason for Visit Reason for Visit: Diagnoses Secondary polycythemia (04/29/23) Nicotine dependence, unspecified, uncomplicated (04/29/23) Essential (primary) hypertension (04/29/23) Angina pectoris, unspecified (04/29/23) Paroxysmal atrial fibrillation (04/29/23) Chronic obstructive pulmonary disease, unspecified (04/29/23) Chest pain, unspecified (04/29/23) Hyperglycemia, unspecified (04/29/23) Other specified abnormalities of plasma proteins (04/29/23) Other specified abnormal findings of blood chemistry (04/29/23) Objective Data Objective Data Vital Signs: Vital Signs Temp Pulse Resp BP Pulse Ox O2 Del Method O2 Flow Rate 98.2 F 88 18 140/95 H 93 Nasal Cannula 3 04/30/23 00:40 04/30/23 00:40 04/30/23 00:40 04/30/23 00:40 04/30/23 00:40 04/30/23 05:31 04/30/23 05:31 Oxygen Flow Rate (L/min) 3 Oxygen Delivery Method Nasal Cannula Weight: 139 lb 15.896 oz Body Mass Index (BMI) 24.0 Intake & Output: Intake and Output for Last 24 Hours 04/28/23 04/29/23 04/30/23 23:59 23:59 23:59 Intake Total 2102 1030.5 / 1030.5 Output Total 0 / 0 Balance 2102 1030.5 / 1030.5 Lab / Micro Data 04/30/23 05:28 04/29/23 02:40 Labs: Laboratory Results - last 24 hr 04/30/23 05:28: WBC 6.7, RBC 5.41 H, Hgb 16.9 H, Hct 55.3 H, MCV 102.2 H, MCH 31.2, MCHC 30.6 L, RDW Std Deviation 59.6 H, RDW Coeff of Sarah 15.9 H, Plt Count 192, MPV 9.9, Immature Gran % (Auto) 0.300, Neut % (Auto) 71.0 H, Lymph % (Auto)15.0 L, Ector % (Auto) 10.0, Eos % (Auto) 2.7, Baso % (Auto) 1.0, Absolute Neuts (auto) 4.7, Absolute Lymphs (auto) 1.00, Nucleated RBC % 0, PT 15.2 H, INR 1.2 Radiography Diagnostic Testing: Radiology Impression Echocardiogram 04/29/23 00:35 Interpretation Summary The estimated ejection fraction is 60 %. Stage 1 diastolic dysfunction. Mild (1+) mitral valve insufficiency. Moderate pulmonary hypertension. Moderate global right ventricular systolic dysfunction. The right atrium is mildly enlarged. Ordering Physician: Marixa Gama Referring Physician: ELIAZAR BARRIOS Performed By: Brenda Carpenter RCS Rhythm Strip Rhythm Strip: Sinus Rhythm Physical Exam Narrative Physical Examination: General: Awake, alert, oriented x 3 and cooperative, laying on her side in the PCU bed, fatigued but notes feeling improved, no chest pain or dyspnea. Skin: Normal color, normal turgor, no icterus, no cyanosis except occasional staged ecchymoses especially to the extremity. HEENT: AT/NC, EOMI, PERRLA, mildly dry MM. Lungs: Mildly diminished, greater bases, mildly increased respiratory rate but no distress, no appreciated rales, ronchi or wheezing. Heart: Currently regular rate and rhythm; no gallop, rub audible. Abdomen: Soft, NTTP, ND, mildly hyperactive BS. Extremities: No cyanosis, clubbing, or marked edema. Neurological: Patient awake, alert, oriented as noted, cognitive function intact; pupils equally reactive to light and accommodation, cranial nerves II-XII grossly normal, moving all 4 extremities, no focal deficits, strength mildlyto moderately Decreased secondary to acute present patient, improved however since initial ED arrival. Psychiatric: Affect appears fatigued otherwise normal, no acute evidence of depressive or anxiety feelings. Assessment & Plan Assessment/Plan (1) Paroxysmal atrial fibrillation: PLAN: Plan The patient is a 67 y/o F w/ PMHx: PAF on coumadin, Chronic anemia/Fe deficiencyanemia, HTN, HLD, Tobacco use, COPD, Chronic back pain s/p cervical neck surgerywho presents to the [facility] ED on 04/28/23 with history of #1. Chest Pain w/ Acute NSTEMI, unclear type with notable ST EKG changes in thesetting of #2: EKG in ED w/ initial atrial fibrillation with RVR with rate [address] depression significant 3V3 to V6 not present on 01/2023 EKG which demonstrated atrial fibrillation with RVR of similar rate at that time with alsoslight elevation in aVR with follow-up EKG after conversion to sinus rhythm withno ST elevation depressions, CXR w/ no acute cardiopulmonary findings. Initial troponin 12 with trending performed--> 71--> 897. Admitted to PCU, maintained on telemetry monitoring, serial cardiac enzymes obtained as noted, magnesium 1.9, TSH 0.87, Coumadin held and patient ministered vitamin K with repeat INR trending pending cardiology evaluation, fortunately converted to sinus rhythm the ED following administration of amiodarone bolus with continued oral metoprolol regimen, maintained on daily baby aspirin, metoprolol, high dose atorvastatin, from records given low BP Entresto held temporarily, 04/29/23 ECHO w/ EF 60%, stage I diastolic dysfunction, mild MVI, moderate pulmonary hypertension, moderate global RV systolic dysfunction, mildly enlarged RA. #2. Paroxysmal atrial fibrillation w/ RVR with suspected volume overload associated with elevated BNP: EKG in ED w/ initial atrial fibrillation with RVR with rate [address] depression significant 3V3 to V6 not present on 01/2023 EKG which demonstrated atrial fibrillation with RVR of similar rate at that time with also slight elevation in aVR with follow-up EKG after conversion to sinus rhythm with no ST elevation depressions, CXR w/ no acute cardiopulmonary findings. Initial troponin 12 with trending performed--> 71--> 897. Patient as noted above administered amiodarone bolus. Maintain on telemetry, cardiac enzymes increased as noted above, magnesium normal, TSH normal, repeat echocardiogram requested. Coumadin temporarily held and low-doseof vitamin K administered per admitting hospitalist for suspected need for cardiac catheterization especially given EKG changes noted. 04/29/23 ECHO w/ EF 60%, stage I diastolic dysfunction, mild MVI, moderate pulmonary hypertension, moderate global RV systolic dysfunction, mildly enlarged RA. Patient initiated on Lasix 40 mg IV twice daily, will continue pending cardiology evaluation. #3. Chronic COPD with noted erythrocytosis likely related with ongoing tobacco use, possibly hypoxia at night: Not on any chronic regimen, encourage tobacco cessation, will maintain on oxygen with wean as tolerated to room air especiallyat night, continue ATC budesonide, PRN albuterol, HOB, IS parameters. #4. Hypertension: Continue home regimen including metoprolol, IV Lasix as notedabove, temporally holding Entresto as BP low normal range, add back once appropriate, PRN hydralazine. #5. Hyperlipidemia: Initiated on high dose statin therapy, FLP with TG 60, TChol 143, LDL 79, VLDL 12, HDL 52. #6. Tobacco Abuse: Encouraged cessation, inpatient consultation per RT, NR if desired. #7. DVT prophylaxis: Recent low-dose vitamin K administration of 5 mg with INR upon presentation 3.3, 04/29/2023 INR 2.7, continue to trend. #8. CODE STATUS: Full code. 04/30/23 0609 <Electronically signed by Marion Muñiz MD> Cosigner Signature (if applicable): CC: ~ Signed [facility] Work Phone: 1(151) 969-498308-24-2023 Progress note Author Marion Muñiz [facility] April 29, 2023 2:17pm Note Date/Time April 29, 2023 6: 47am [facility] Medical Records Department [address] [place] [address] Progress Note - Hospitalist 04/29/2347 MR#: [id number] Acct: [id number] Name: JANENE VASQUEZ Rep #:[id number] : 1955 67 From: Marion Muñiz MD PCP: Dr. Eliazar Barrios, DO Status: ADM JORGE Location: [place] [address] Reason for Visit Reason for Visit: Diagnoses Secondary polycythemia (04/28/23) Paroxysmal atrial fibrillation (04/28/23) Chest pain, unspecified (04/28/23) Hyperglycemia, unspecified (04/28/23) Other specified abnormalities of plasma proteins (04/28/23) Other specified abnormal findings of blood chemistry (04/28/23) Subjective Subjective Patient fatigued given she was up through the evening as well as episode of atrial fibrillation with RVR, remains converted in sinus rhythm. She denies anymarked dyspnea or any recurrent chest discomfort or atypical chest discomfort toward the back. Patient understands that given her current presentation with EKG changes although improved with conversion to sinus rhythm she does have notably elevated troponins now up to 897, awaiting cardiology evaluation with potential cardiac catheterization. Patient denies fevers, chills, nausea, emesis, abdominal pain. Objective Data Objective Data Vital Signs: Vital Signs Temp Pulse Resp BP Pulse Ox O2 Del Method O2 Flow Rate 98.1 F 63 19 H 107/68 95 Nasal Cannula 2 04/29/23 06:24 04/29/23 06:24 04/29/23 06:24 04/29/23 06:24 04/29/23 06:24 04/29/23 06:24 04/29/23 06:24 Oxygen Flow Rate (L/min) 2 Oxygen Delivery Method Nasal Cannula Weight: 145 lb 6.4 oz Body Mass Index (BMI) 24.9 Intake & Output: Intake and Output for Last 24 Hours 04/27/23 04/28/23 04/29/23 23:59 23:59 23:59 Intake Total 2102 50.5 / 50.5 Output Total 0 / 0 Balance 2102 50.5 / 50.5 Lab / Micro Data 04/29/23 02:40 04/29/23 02:40 Labs: Laboratory Results - last 24 hr 04/28/23 20:20: WBC 7.8, RBC 5.99 H, Hgb 18.8 H*, Hct 58.3 H, MCV 97.3, MCH 31.4, MCHC 32.2, RDW Std Deviation 55.4 H, RDW Coeff of Asrah 15.7 H, Plt Count 290, MPV 10.6, Immature Gran % (Auto) 0.300, Neut % (Auto) 64.9, Lymph % (Auto) 23.7, Ector % (Auto) 8.2, Eos % (Auto) 2.0, Baso % (Auto) 0.9, Absolute Neuts (auto) 5.1, Absolute Lymphs (auto) 1.86, Nucleated RBC % 0, PT Cancelled, INR Cancelled, Sodium 138, Potassium 3.6, Chloride 98, Carbon Dioxide 31.0, Anion Gap 9, BUN 11, Creatinine 0.97, Est GFR (MDRD) Af Amer 73, Est GFR (MDRD) Non-Af60, BUN/Creatinine Ratio 11.3, Glucose 167 H, Calcium 9.4, Troponin I High Sens 12, B-Natriuretic Peptide 736.0 H 04/28/23 22:05: PT 33.8 H, INR 3.3 04/28/23 22:40: Troponin I High Sens 71 H 04/29/23 02:40: WBC 8.9, RBC 5.51 H, Hgb 17.2 H, Hct 55.3 H, MCV 100.4 H, MCH 31.2, MCHC 31.1 L, RDW Std Deviation 58.4 H, RDW Coeff of Sarah 15.8 H, Plt Count 226, MPV 9.8, Immature Gran % (Auto) 0.400, Neut % (Auto) 76.3 H, Lymph % (Auto)12.9 L, Ector % (Auto) 9.3, Eos % (Auto) 0.3, Baso % (Auto) 0.8, Absolute Neuts (auto) 6.8, Absolute Lymphs (auto) 1.15, Nucleated RBC % 0, PT 28.9 H, INR 2.7, Sodium 140, Potassium 4.0, Chloride 108 H, Carbon Dioxide 29.0, Anion Gap 3 L, BUN 9, Creatinine 0.73, Estim Creat Clear Calc 45.85, Est GFR (MDRD) Af Amer 101, Est GFR (MDRD) Non-Af 84, BUN/Creatinine Ratio 12.3, Glucose 122 H, Hemoglobin A1c 5.6, Calcium 7.8 L, Phosphorus 4.4, Magnesium 1.9, Total Bilirubin 0.40, AST 55 H, ALT 47, Alkaline Phosphatase 60, Troponin I High Sens 897 H*, Total Protein 6.0 L, Albumin 2.9 L, Globulin 3.1, Albumin/Globulin Ratio0.9, Triglycerides 60, Cholesterol 143, LDL Cholesterol 79, VLDL Cholesterol 12,HDL Cholesterol 52, TSH 0.87 Radiography Diagnostic Testing: Radiology Impression Chest X-Ray 04/28/23 21:10 IMPRESSION: No evidence of cardiopulmonary disease. Electronically Signed: Vazquez DuranDO at 21:41 EDT , Physical Exam Narrative Physical Examination: General: Awake, alert, oriented x 3 and cooperative, laying on her side in the PCU bed, fatigued but notes feeling improved, no chest pain or dyspnea. Skin: Normal color, normal turgor, no icterus, no cyanosis except occasional staged ecchymoses especially to the extremity. HEENT: AT/NC, EOMI, PERRLA, mildly dry MM. Lungs: Mildly diminished, greater bases, mildly increased respiratory rate but no distress, no appreciated rales, ronchi or wheezing. Heart: Currently regular rate and rhythm; no gallop, rub audible. Abdomen: Soft, NTTP, ND, mildly hyperactive BS. Extremities: No cyanosis, clubbing, or marked edema. Neurological: Patient awake, alert, oriented as noted, cognitive function intact; pupils equally reactive to light and accommodation, cranial nerves II-XII grossly normal, moving all 4 extremities, no focal deficits, strength mildlyto moderately Decreased secondary to acute present patient, improved however since initial ED arrival. Psychiatric: Affect appears fatigued otherwise normal, no acute evidence of depressive or anxiety feelings. Assessment & Plan Assessment/Plan (1) Paroxysmal atrial fibrillation: PLAN: Plan The patient is a 67 y/o F w/ PMHx: PAF on coumadin, Chronic anemia/Fe deficiencyanemia, HTN, HLD, Tobacco use, COPD, Chronic back pain s/p cervical neck surgerywho presents to the [facility] ED on 04/28/23 with history of #1. Chest Pain w/ Acute NSTEMI, unclear type with notable ST EKG changes in thesetting of #2: EKG in ED w/ initial atrial fibrillation with RVR with rate [address] depression significant 3V3 to V6 not present on 01/2023 EKG which demonstrated atrial fibrillation with RVR of similar rate at that time with alsoslight elevation in aVR with follow-up EKG after conversion to sinus rhythm withno ST elevation depressions, CXR w/ no acute cardiopulmonary findings. Initial troponin 12 with trending performed--> 71--> 897. Admitted to PCU, maintained on telemetry monitoring, serial cardiac enzymes obtained as noted, magnesium 1.9, TSH 0.87, Coumadin held and patient ministered vitamin K with repeat INR trending pending cardiology evaluation, fortunately converted to sinus rhythm the ED following administration of amiodarone bolus with continued oral metoprolol regimen, maintained on daily baby aspirin, metoprolol, high dose atorvastatin, from records given low BP Entresto held temporarily, 04/29/23 ECHO w/ EF 60%, stage I diastolic dysfunction, mild MVI, moderate pulmonary hypertension, moderate global RV systolic dysfunction, mildly enlarged RA. #2. Paroxysmal atrial fibrillation w/ RVR with suspected volume overload associated with elevated BNP: EKG in ED w/ initial atrial fibrillation with RVR with rate [address] depression significant 3V3 to V6 not present on 01/2023 EKG which demonstrated atrial fibrillation with RVR of similar rate at that time with also slight elevation in aVR with follow-up EKG after conversion to sinus rhythm with no ST elevation depressions, CXR w/ no acute cardiopulmonary findings. Initial troponin 12 with trending performed--> 71--> 897. Patient as noted above administered amiodarone bolus. Maintain on telemetry, cardiac enzymes increased as noted above, magnesium normal, TSH normal, repeat echocardiogram requested. Coumadin temporarily held and low-doseof vitamin K administered per admitting hospitalist for suspected need for cardiac catheterization especially given EKG changes noted. 04/29/23 ECHO w/ EF 60%, stage I diastolic dysfunction, mild MVI, moderate pulmonary hypertension, moderate global RV systolic dysfunction, mildly enlarged RA. Patient initiated on Lasix 40 mg IV twice daily, will continue pending cardiology evaluation. #3. Chronic COPD with noted erythrocytosis likely related with ongoing tobacco use, possibly hypoxia at night: Not on any chronic regimen, encourage tobacco cessation, will maintain on oxygen with wean as tolerated to room air especiallyat night, continue ATC budesonide, PRN albuterol, HOB, IS parameters. #4. Hypertension: Continue home regimen including metoprolol, IV Lasix as notedabove, temporally holding Entresto as BP low normal range, add back once appropriate, PRN hydralazine. #5. Hyperlipidemia: Initiated on high dose statin therapy, FLP with TG 60, TChol 143, LDL 79, VLDL 12, HDL 52. #6. Tobacco Abuse: Encouraged cessation, inpatient consultation per RT, NR if desired. #7. DVT prophylaxis: Recent low-dose vitamin K administration of 5 mg with INR upon presentation 3.3, 04/29/2023 INR 2.7, continue to trend. #8. CODE STATUS: Full code. Charges/Coding Visit Charges Inpatient E&M: 69650 Subs Hosp L2 04/29/23 1417 <Electronically signed by Marion Muñiz MD> Cosigner Signature (if applicable): CC: ~ Signed [facility] Work Phone: [phone]) 385-278208-24-2023 Consult note Author Parker Lee [facility] April 29, 2023 10:52am Note Date/Time April 29, 2023 10 :52am [facility] Medical Records Department [address] [place] [address] Consultation - Cardiology 04/29/23 1044 MR#: [id number] Acct: [id number] Name: JANENE VASQUEZ Rep #:[id number] : 1955 67 From: Parker Lee MD PCP: Dr. Eliazar Barrios, DO Status: ADM JORGE Location: [place] [address] Assessment & Plan Assessment/Plan (1) Angina pectoris: PLAN: Patient had significant ST changes with rapid heart rate upon presentations. These likely are ischemic changes. Discussed with patient. Offered coronary angiography with possible revascularization. Risks benefits and alternatives explained. She understand these and wishes to think about her options. Start on nitrates. Already started on aspirin. Continue beta-blockers. Lipid management as per internal medicine. (2) Paroxysmal atrial fibrillation: PLAN: Back to normal sinus rhythm. Monitor. (3) Severe chronic obstructive pulmonary disease: PLAN: As per internal medicine/pulmonology. (4) Hypertension: PLAN: Blood pressure controlled. (5) Nicotine dependence: PLAN: Counseled to quit. HPI Consult Data Date of Consult: 04/29/23 HPI Narrative Reason for Consultation: Atrial fibrillation with rapid ventricular response/armdiscomfort HPI Narrative: The patient has past medical history significant for hypertension, nicotine dependence and paroxysmal atrial fibrillation. She presented to the emergency room yesterday with complaints of acute onset interscapular discomfort that radiated down her left shoulder and arm. According to her, she has never had these symptoms before. She was noted to be in atrial fibrillation with rapid ventricular response. She subsequently converted to normal sinus rhythm spontaneously. Her back pain and arm pain also resolved since. [facility] Medical History (Updated 04/29/23 @ 10:[address] Parker Lee MD) Acute bronchitis, unspecified Afib Chronic anticoagulation Degenerative disc disease History of emphysema Hypertension Osteoarthritis Tobacco abuse Home Medications albuterol sulfate 90 mcg/actuation aerosol inhaler (ProAir HFA) 1 puff inhalation Q4H PRN PRN Sob &/Or Wheezing 04/21/16 [History Last Taken Unknown] ferrous sulfate 325 mg (65 mg iron) tablet 325 mg PO DAILY anemia 01/18/23 [History Last Taken Unknown] furosemide 20 mg tablet 20 mg PO DAILY edema 01/18/23 [History Last Taken Unknown] metoprolol succinate 50 mg tablet,extended release 24 hr 50 mg PO DAILY htn 01/18/23 [History Last Taken Unknown] sacubitril 24 mg-valsartan 26 mg tablet (Entresto) 1 tab PO BID . 01/18/23 [History Last Taken Unknown] cholecalciferol (vitamin D3) 50 mcg (2,000 unit) capsule 50 mcg PO DAILY supplement 04/29/23 [History Last Taken Unknown] warfarin 5 mg tablet 5 mg PO DAILY blood thinner 04/29/23 [History Last Taken 04/28/23] Allergy/AdvReac Type Severity Reaction Status Date / Time No Known Allergies Allergy Verified 04/28/23 21:03 Family History (Updated 04/29/23 @ 00:[address] Marixa Gama DO) Other CAD (coronary artery disease) Heart disease Hypertension Surgical History H/O adenoidectomy History of appendectomy Hx of neck surgery Hx of tonsillectomy Total knee replacement status Social History (Updated 04/29/23 @ 00:[address] Marixa Gama, ) household members: spouse housing: house Smoking Status: Current every day smoker tobacco type: cigarettes alcohol intake: current alcohol intake frequency: holidays/special occasions only substance use type: does not use Physical Exam Narrative Patient appears to have some conversational dyspnea. Heart sounds 1 and 2 noted. No murmurs or rubs noted. Chest examination reveals markedly decreased air entry bilaterally. No crepitations or rhonchi. Abdomen soft. Alert oriented x3. No ankle edema noted. Risk Stratification Risk Stratification Applicable: No Objective Data Vital Signs: Vital Signs Temp Pulse Resp BP Pulse Ox O2 Del Method O2 Flow Rate 98.1 F 63 19 H 107/68 95 Nasal Cannula 2 04/29/23 06:24 04/29/23 06:24 04/29/23 06:24 04/29/23 06:24 04/29/23 06:24 04/29/23 09:35 04/29/23 09:35 Oxygen Flow Rate (L/min) 2 Oxygen Delivery Method Nasal Cannula Weight: 145 lb 6.4 oz Body Mass Index (BMI) 24.9 Intake & Output: Intake and Output for Last 24 Hours 04/27/23 04/28/23 04/29/23 23:59 23:59 23:59 Intake Total 2102 50.5 / 50.5 Output Total 0 / 0 Balance 2102 50.5 / 50.5 Lab / Micro Data 04/29/23 02:40 04/29/23 02:40 Labs: Laboratory Results - last 24 hr 04/28/23 20:20: WBC 7.8, RBC 5.99 H, Hgb 18.8 H*, Hct 58.3 H, MCV 97.3, MCH 31.4, MCHC 32.2, RDW Std Deviation 55.4 H, RDW Coeff of Sarah 15.7 H, Plt Count 290, MPV 10.6, Immature Gran % (Auto) 0.300, Neut % (Auto) 64.9, Lymph % (Auto) 23.7, Ector % (Auto) 8.2, Eos % (Auto) 2.0, Baso % (Auto) 0.9, Absolute Neuts (auto) 5.1, Absolute Lymphs (auto) 1.86, Nucleated RBC % 0, PT Cancelled, INR Cancelled, Sodium 138, Potassium 3.6, Chloride 98, Carbon Dioxide 31.0, Anion Gap 9, BUN 11, Creatinine 0.97, Est GFR (MDRD) Af Amer 73, Est GFR (MDRD) Non-Af60, BUN/Creatinine Ratio 11.3, Glucose 167 H, Calcium 9.4, Troponin I High Sens 12, B-Natriuretic Peptide 736.0 H 04/28/23 22:05: PT 33.8 H, INR 3.3 04/28/23 22:40: Troponin I High Sens 71 H 04/29/23 02:40: WBC 8.9, RBC 5.51 H, Hgb 17.2 H, Hct 55.3 H, MCV 100.4 H, MCH 31.2, MCHC 31.1 L, RDW Std Deviation 58.4 H, RDW Coeff of Sarah 15.8 H, Plt Count 226, MPV 9.8, Immature Gran % (Auto) 0.400, Neut % (Auto) 76.3 H, Lymph % (Auto)12.9 L, Ector % (Auto) 9.3, Eos % (Auto) 0.3, Baso % (Auto) 0.8, Absolute Neuts (auto) 6.8, Absolute Lymphs (auto) 1.15, Nucleated RBC % 0, PT 28.9 H, INR 2.7, Sodium 140, Potassium 4.0, Chloride 108 H, Carbon Dioxide 29.0, Anion Gap 3 L, BUN 9, Creatinine 0.73, Estim Creat Clear Calc 45.85, Est GFR (MDRD) Af Amer 101, Est GFR (MDRD) Non-Af 84, BUN/Creatinine Ratio 12.3, Glucose 122 H, Hemoglobin A1c 5.6, Calcium 7.8 L, Phosphorus 4.4, Magnesium 1.9, Total Bilirubin 0.40, AST 55 H, ALT 47, Alkaline Phosphatase 60, Troponin I High Sens 897 H*, Total Protein 6.0 L, Albumin 2.9 L, Globulin 3.1, Albumin/Globulin Ratio0.9, Triglycerides 60, Cholesterol 143, LDL Cholesterol 79, VLDL Cholesterol 12,HDL Cholesterol 52, TSH 0.87 Rhythm Strip Rhythm Strip: Sinus Rhythm Cardiology Labs/Tests 04/28/23 20:20: WBC 7.8, RBC 5.99 H, Hgb 18.8 H*, Hct 58.3 H, MCV 97.3, MCH 31.4, MCHC 32.2, Plt Count 290, MPV 10.6, Immature Gran % (Auto) 0.300, Neut % (Auto) 64.9, Lymph % (Auto) 23.7, Ector % (Auto) 8.2, Eos % (Auto) 2.0, Baso % (Auto) 0.9, Absolute Neuts (auto) 5.1, Nucleated RBC % 0, PT Cancelled, INR Cancelled, Sodium 138, Potassium 3.6, Chloride 98, Carbon Dioxide 31.0, Anion Gap 9, BUN 11, Creatinine 0.97, Est GFR (MDRD) Af Amer 73, Est GFR (MDRD) Non-Af60, BUN/Creatinine Ratio 11.3, Glucose 167 H, Calcium 9.4, B-Natriuretic Nfhaxed426.0 H 04/28/23 22:05: PT 33.8 H, INR 3.3 04/29/23 02:40: WBC 8.9, RBC 5.51 H, Hgb 17.2 H, Hct 55.3 H, MCV 100.4 H, MCH 31.2, MCHC 31.1 L, Plt Count 226, MPV 9.8, Immature Gran % (Auto) 0.400, Neut % (Auto) 76.3 H, Lymph % (Auto) 12.9 L, Ector % (Auto) 9.3, Eos % (Auto) 0.3, Baso % (Auto) 0.8, Absolute Neuts (auto) 6.8, Nucleated RBC % 0, PT 28.9 H, INR 2.7, Sodium 140, Potassium 4.0, Chloride 108 H, Carbon Dioxide 29.0, Anion Gap 3 L, BUN 9, Creatinine 0.73, Est GFR (MDRD) Af Amer 101, Est GFR (MDRD) Non-Af 84, BUN/Creatinine Ratio 12.3, Glucose 122 H, Hemoglobin A1c 5.6, Calcium 7.8 L, Phosphorus 4.4, Magnesium 1.9, Total Bilirubin 0.40, Triglycerides 60, Cholesterol 143, LDL Cholesterol 79, VLDL Cholesterol 12, HDL Cholesterol 52 Rhythm: EKG: ECG on presentation showed atrial fibrillation with rapid ventricular response. Significant ST depressions noted in anterior lateral leads suggestiveof ischemia. Subsequent ECG shows normal sinus rhythm with resolution of ST segments. ECHO: Stress Test: Cardiac Cath: PCI: CT Surgery: Holter monitor: EPS: PPM: CXR: Chest CT Scan: Radiography Diagnostic Testing: Radiology Impression Chest X-Ray 04/28/23 21:10 IMPRESSION: No evidence of cardiopulmonary disease. Electronically Signed: Vazquez Duran DO at 21:41 EDT Reading Location ID and State: [facility] / [place] Tel , Service support , 04/29/23 1052 <Electronically signed by Parker Lee MD> Cosigner Signature (if applicable): CC: Dr. Parker Lee MD; Dr. Marixa Gama DO; Dr. Eliazar Barrios DO~ Signed [facility] Work Phone: [phone] History and physical note Author Marixa Gama [facility] April 29, 2023 12:24am Note Date/Time April 28, 2023 11 :29pm [facility] Medical Records Department [facility] [place] [address] H&P Exam - Hospitalist 04/28/23 2317 MR#: [id number] Acct: [id number] Name: JANENE VASQUEZ Rep #:[id number] : 1955 67 From: Marixa Gama DO PCP: Dr. Eliazar Barrios, DO Status: ADM IN Location: [facility] [id number] HPI - General General Date of Admission: 04/28/23 Date of Service: 04/28/23 Chief Complaint: Chest Pain HPI Narrative JANENE VASQUEZ, is a 67 F who presented to the emergency department at [facility] on 04/29/2023 complaining of back pain in her mid back that radiated to her left shoulder and down her left arm. It started at about 730 this evening and the patient reported she had a headache with this. She also complained of some associated nausea which resolved. Denies any vomiting, diaphoresis or significant shortness of breath at the time however she is feeling more short of breath now. She has a strong family history of coronary disease having one of her brothers at 57 from coronary artery disease and both of her sisters having disease as well. She is the oldest. She still smokes. At the time of my evaluation she stated her headache and resolved and she was pain-free. On presentation she was noted to be in A-fib with RVR. She was recently diagnosed with A-fib back in January of this year and has been on Coumadin and beta-theodore. She states that she does not usually feel when she goes in and out of A-fib and when she came in last time she was just having anxiety. She is never experienced the pain she had this evening. It occurred while she was driving her car. In the emergency department she was given amiodarone bolus which actually converted her to normal sinus rhythm. Her bloodpressures were low on arrival likely related to her RVR and she was given 2 L IVbolus. Vital signs on presentation showed a temperature of 97.9, heart rate 142, blood pressure was 90/65, respiratory rate was 20 and oxygen saturation was not documented on room air however on 4 L nasal cannula she was 96%. CBC was unremarkable when compared to previous however she does have an erythrocytosis which appears to be chronic. INR was 3.3. Electrolytes were normal. Renal function was normal with a BUN of 11 and a serum creatinine of 0.97. Glucose was elevated at 167 and the patient does not have a documented history of diabetes. Her initial troponin was 12 with a repeat at 71. BNP was 736. Her initial EKG showed A-fib with RVR and a rate of [address] depression that was quite significant in V3 through V6. When I compared it to her previous EKG fromMay when she was in A-fib with RVR with a similar rate of 144 this depression was not present. She also had very slight elevation in aVR. Follow-up EKG after she had converted to normal sinus rhythm does not show any ST elevation ordepression. Chest x-ray is unremarkable for any acute findings however does show hyperinflation. [facility] Medical History (Updated 04/29/23 @ 00:[address] Marixa Gama DO) Acute bronchitis, unspecified Afib Chronic anticoagulation Degenerative disc disease History of emphysema Hypertension Osteoarthritis Tobacco abuse Home Medications albuterol sulfate 90 mcg/actuation aerosol inhaler (ProAir HFA) 1 puff inhalation Q4H PRN PRN Sob &/Or Wheezing 04/21/16 [History Last Taken Unknown] cyclobenzaprine 10 mg tablet 10 mg PO TID PRN PRN SPASMS ##60 05/06/16 [Rx Last Taken Unknown] ferrous sulfate 325 mg (65 mg iron) tablet 325 mg PO DAILY anemia 01/18/23 [History Last Taken Unknown] furosemide 20 mg tablet 20 mg PO DAILY edema 01/18/23 [History Last Taken Unknown] metoprolol succinate 50 mg tablet,extended release 24 hr 50 mg PO DAILY htn 01/18/23 [History Last Taken Unknown] sacubitril 24 mg-valsartan 26 mg tablet (Entresto) 1 tab PO BID . 01/18/23 [History Last Taken Unknown] Allergy/AdvReac Type Severity Reaction Status Date / Time No Known Allergies Allergy Verified 04/28/23 21:03 Family History (Updated 04/29/23 @ 00:[address] Marixa Gama DO) Other CAD (coronary artery disease) Heart disease Hypertension Surgical History H/O adenoidectomy History of appendectomy Hx of neck surgery Hx of tonsillectomy Total knee replacement status Social History (Updated 04/29/23 @ 00:[address] Marixa Gama DO) household members: spouse housing: house Smoking Status: Current every day smoker tobacco type: cigarettes alcohol intake: current alcohol intake frequency: holidays/special occasions only substance use type: does not use ROS Constitutional Constitutional: Denies anorexia, change in weight, chills, fatigue, fever(s), malaise, night sweats, weakness or other Eyes Eyes: Denies blurry vision, change in eye color, change in vision, discharge from eye(s), double vision, erythema, eye pain, loss of vision or other ENT HEENT: Denies abnormal hearing, dysphagia, ear pain, epistaxis, headache(s), hearing loss, nasal congestion, nasal discharge, post nasal drip, sinus pressure, sore throat or other Cardiovascular Cardiovascular: Reports dyspnea on exertion and other Details: Back pain that radiated to left shoulder and down left arm-currently resolved ; Denies chest pain, claudication, edema, lightheadedness, orthopnea, palpitations, paroxysmal nocturnal dyspnea, rapid heart rate or syncope Respiratory/Chest Respiratory/Chest: Reports shortness of breath at rest and shortness of breath with exertion; Denies cough, dyspnea, excessive phlegm production, hemoptysis, productive cough, wheezing or other Gastrointestinal Gastrointestinal: Denies abdominal pain, coffee ground emesis, constipation, diarrhea, dyspepsia, hematemesis, hematochezia, loose stools, melena, nausea, vomiting or other Genitourinary Genitourinary: Denies burning urination, difficulty urinating, dysuria, hematuria, nocturia, urinary frequency, urinary hesitancy, urinary incontinence,urinary urgency or other Musculoskeletal Musculoskeletal: Reports back pain; Denies arthralgias, joint pain, joint stiffness, joint swelling, myalgias, neck pain or other Neurologic Neurologic: Denies abnormal gait, abnormal speech, confusion, disequilibrium, dizziness, focal weakness, headache(s), numbness, paresthesias, seizure-like activity, seizures, syncope, tingling, tremor(s) or other Psychiatric Psychiatric: Denies anxiety, depression, homicidal ideation, suicidal ideation or other Endocrine Endocrinology: Denies change in body appearance, cold intolerance, excessive sweating, heat intolerance, polydipsia, polyuria or other Hematologic/Lymphatic Hematologic/Lymphatic: Denies anemia, easy bleeding, easy bruising, lymphadenopathy or other Allergic/Immunologic Allergic/Immunologic: Denies rhinitis, hives, eczemia, asthma or other Vital Signs Vital Signs Vital Signs: 04/28/23 20:57 04/28/23 21:04 04/28/23 21:04 Temperature 97.9 F Temperature Source Temporal Pulse Rate 142 H Respiratory Rate 20 H Respiratory Effort Normal Non-Labored Blood Pressure 90/65 Blood Pressure Mean 73 Pulse Ox 96 Oxygen Delivery Method Nasal Cannula Oxygen Flow Rate (L/min) 4 04/28/23 22:19 04/28/23 22:29 Temperature Temperature Source Pulse Rate 133 H 97 Respiratory Rate 30 H 27 H Respiratory Effort Blood Pressure 124/93 H 124/89 H Blood Pressure Mean 103 100 Pulse Ox 91 98 Oxygen Delivery Method Nasal Cannula Oxygen Flow Rate (L/min) 1 5 Physical Exam Const alert, oriented x3, no apparent distress, average body habitus and well nourished Constitutional Narrative: Upper middle-aged, white female, appears older than stated age, sitting up in bed, appears comfortable, significant other at bedside, nontoxic-appearing and comfortable General Appearance: cooperative HEENT normocephalic, head/scalp atraumatic, hearing grossly normal bilaterally and moist oral mucous membranes HEENT Narrative: Dentures in place, Mallampati 2, no thrush Eyes PERRL, EOMs intact bilaterally and conjunctivae normal Eyes Narrative: No scleral icterus Neck no lymphadenopathy, supple, no JVD and no carotid bruits Resp no retractions and no use of accessory muscles Resp Narrative: Diffuse crackles, mild tachypnea Auscultation: crackles; Negative for rhonchi or wheezes Cardio regular rate, regular rhythm, S1 normal heart sound, S2 normal heart sound, no murmurs, no rub, no gallops and no clicks GI normal to inspection, nondistended, normoactive bowel sounds, soft to palpation and non-tender Extremity no clubbing, cyanosis or edema Extremity Narrative: Pedal pulses are 2+, radial pulses are 2+ Skin no rashes or lesions noted, no wounds, skin turgor normal, no jaundice, no petechiae and no mottling Neuro oriented x3, CN's II-XII intact bilaterally, moves all extremities and no focal motor deficits Speech: speech normal Psych affect normal Psych Narrative: Very pleasant, eye contact is good, patient interacts appropriately Results Lab / Micro Data Attestation: I reviewed the patient's lab results. 04/28/23 20:20 04/28/23 20:20 Labs: Laboratory Results - last 24 hr 04/28/23 20:20: WBC 7.8, RBC 5.99 H, Hgb 18.8 H*, Hct 58.3 H, MCV 97.3, MCH 31.4, MCHC 32.2, RDW Std Deviation 55.4 H, RDW Coeff of Sarah 15.7 H, Plt Count 290, MPV 10.6, Immature Gran % (Auto) 0.300, Neut % (Auto) 64.9, Lymph % (Auto) 23.7, Ector % (Auto) 8.2, Eos % (Auto) 2.0, Baso % (Auto) 0.9, Absolute Neuts (auto) 5.1, Absolute Lymphs (auto) 1.86, Nucleated RBC % 0, PT Cancelled, INR Cancelled, Sodium 138, Potassium 3.6, Chloride 98, Carbon Dioxide 31.0, Anion Gap 9, BUN 11, Creatinine 0.97, Est GFR (MDRD) Af Amer 73, Est GFR (MDRD) Non-Af60, BUN/Creatinine Ratio 11.3, Glucose 167 H, Calcium 9.4, Troponin I High Sens 12, B-Natriuretic Peptide 736.0 H 04/28/23 22:05: PT 33.8 H, INR 3.3 04/28/23 22:40: Troponin I High Sens 71 H EKG Initial EKG: Attestation: I personally reviewed and interpreted this EKG as follows: Prior EKG tracings: available for review (Previous EKG from January showed A-fib with RVR at a rate of [address]-T wave changes) EKG Rhythm Intrepretation: Atrial Fibrillation (With RVR and a rate of 142with ST depression that significant in V3 through V6 and mild ST elevation in aVR) Follow-up EKG: Attestation: I personally reviewed and interpreted this EKG as follows: Prior EKG tracings: available for review EKG Rhythm Intrepretation: Sinus Rhythm (ST segment depression that was noted while in A-fib had resolved) Radiology Impression Chest X-Ray 04/28/23 21:10 IMPRESSION: No evidence of cardiopulmonary disease. Electronically Signed: Vazquez Duran DO at 21:41 EDT , Assessment & Plan Assessment/Plan (1) Chest pain: (2) Paroxysmal atrial fibrillation with RVR: (3) Erythrocytosis: (4) Hyperglycemia: (5) Elevated troponin I level: (6) Elevated brain natriuretic peptide (BNP) level: PLAN: Plan NSTEMI -Patient was found to be in RVR on presentation -Pain that radiated to her back and to her left shoulder down her left arm that subsided when her rate was more controlled however her EKG was markedly abnormalwhile she was on RVR -EKG showed mild ST elevation in aVR and significant ST depression in V3 through V6 -I reviewed her EKG from previous when she was RVR at the same rate and thesefindings were not present at that time -Patient has significant family history of coronary disease with her brother dying at 57 and all of her siblings have coronary disease -I anticipate the patient will need cardiac catheterization -Aspirin load in the emergency department and then 81 mg daily -Start atorvastatin 80 mg nightly -Continue home metoprolol -Check hemoglobin A1c -Check lipids -Check echocardiogram -Had recent echocardiogram on 07/20/2022 at [facility] at which time she had an EF of 65 to 70%, mild biatrial enlargement, right ventricular systolic pressure of 35 mmHg and 1+ MR and TR -Hold Coumadin -5 mg of vitamin K with an INR of 3.3 -N.p.o. after midnight -Consult cardiology A-fib with RVR with history of PAF -Patient is now converted to normal sinus rhythm -On Coumadin chronically -Hold for anticipated cardiac catheterization -Amio load in the emergency department and has converted -We will hold on further Amio now--> I am wondering if ischemia precipitated this event -Continue home beta-theodore Elevated BNP -With the above advance I suspect she developed some heart failure -Lasix 40 mg IV push twice daily -Continue home meds appropriately -Check echocardiogram Erythrocytosis -Patient still smoking and I suspect this is related to her history of tobacco abuse -Anticipate that she may be hypoxic especially at night and patient thinks that she may be as well -Would recommend outpatient work-up further if not been pursued -Continue supplemental oxygen to maintain sats greater than 88% -It appears that the patient may be on iron supplements at home if so after medsconfirmed will hold COPD/emphysema -Highly recommend pulmonary follow-up after discharge -Recommend tobacco cessation -As needed albuterol available Tobacco abuse -Recommend cessation -Nicotine patch available DVT prophylaxis -Patient is fully anticoagulated with Coumadin and INR is therapeutic at 3.3 CODE STATUS -Full code as verified on admission Charges/Coding Visit Charges Inpatient E&M: 96637 Init Hosp L3 04/29/23 0024 <Electronically signed by Marixa Gama DO> Cosigner Signature (if applicable): CC: Dr. Marixa Gama DO; Dr. Eliazar Barrios DO~ Signed [facility] Work Phone: [phone]) 738-686908-24-2023 Discharge summary Author Silver Harris [facility] April 28, 2023 11:31pm Note Date/Time April 28, 2023 10 :51pm [facility] Medical Records Department [address] [place] [address] Emergency Department Summary 04/28/23 MR#: [id number] Acct: [id number] Name: JANENE VASQUEZ Rep #:[id number] : 1955 67 From: Silver Harris DO PCP: Dr. Eliazar Barrios DO Status: ADM JORGE Location: [address] History of Present Illness Chief Complaint: Palpitations Narrative Narrative: 67-year-old female with recent new onset of A-fib and may currently on Coumadin and has been therapeutic. Patient on metoprolol 50 mg p.o. twice daily. She noemi Lasix 20 mg daily. Patient states she has no history of CHF. Patient statesthat she did have some pain between her shoulder blades that she radiated into her left arm. It is now gone. The onset of this was about 730 tonight. Patient states he had a headache with this. No fevers or chills. She does havesome nausea which resolved. [facility] Medical History (Updated 04/28/23 @ 23:[address] Marixa Gama DO) Acute bronchitis, unspecified Afib Chronic anticoagulation History of emphysema Hypertension Home Medications albuterol sulfate 90 mcg/actuation aerosol inhaler (ProAir HFA) 1 puff inhalation Q4H PRN PRN Sob &/Or Wheezing 04/21/16 [History Last Taken Unknown] cyclobenzaprine 10 mg tablet 10 mg PO TID PRN PRN SPASMS ##60 05/06/16 [Rx Last Taken Unknown] ferrous sulfate 325 mg (65 mg iron) tablet 325 mg PO DAILY 01/18/23 [History Last Taken Unknown] furosemide 20 mg tablet 20 mg PO DAILY 01/18/23 [History Last Taken Unknown] metoprolol succinate 50 mg tablet,extended release 24 hr mg PO 01/18/23 [History Last Taken Unknown] sacubitril 24 mg-valsartan 26 mg tablet (Entresto) 1 tab PO BID 01/18/23 [History Last Taken Unknown] Allergy/AdvReac Type Severity Reaction Status Date / Time No Known Allergies Allergy Verified 04/28/23 21:03 Surgical History H/O adenoidectomy History of appendectomy Hx of neck surgery Hx of tonsillectomy Total knee replacement status Social History Smoking Status: Current every day smoker tobacco type: cigarettes ROS ROS ED Constitutional Constitutional ED: Denies chills, fever(s) or sweats Eyes Eyes: Denies blurry vision or change in vision ENT ENT ED: Denies ear pain or sore throat Cardiovascular Cardiovascular: Reports chest pain, palpitations and racing heartbeat Respiratory/Chest Respiratory/Chest: Denies cough, dyspnea or sputum Gastrointestinal Gastrointestinal: Reports nausea; Denies abdominal pain, constipation, diarrhea or vomiting Genitourinary Genitourinary ED: Denies dysuria, hematuria or urinary frequency Musculoskeletal Musculoskeletal: Reports back pain; Denies arthralgias, myalgias or neck pain Integumentary Denies abscess, Abrasions or rash Neurologic Neurologic: Denies headache(s), paresthesias or weakness Psychiatric Psychiatric: Denies anxiety, depression, suicidal ideation or suicidal thoughts Endocrine Endocrinology: Denies polydipsia or polyuria EXAM Physical Exam Const Vital Signs: 04/28/23 20:57 04/28/23 21:04 04/28/23 21:04 Temperature 97.9 F Temperature Source Temporal Pulse Rate 142 H Respiratory Rate 20 H Respiratory Effort Normal Non-Labored Blood Pressure 90/65 Blood Pressure Mean 73 Pulse Ox 96 Oxygen Delivery Method Nasal Cannula Oxygen Flow Rate (L/min) 4 04/28/23 22:19 04/28/23 22:29 Temperature Temperature Source Pulse Rate 133 H 97 Respiratory Rate 30 H 27 H Respiratory Effort Blood Pressure 124/93 H 124/89 H Blood Pressure Mean 103 100 Pulse Ox 91 98 Oxygen Delivery Method Nasal Cannula Oxygen Flow Rate (L/min) 1 5 Positive well nourished General Appearance ED: NAD; Negative for pallor HEENT Reports moist mucous membranes normocephalic Eyes PERRL and EOMs intact bilaterally Chest Wall inspection of chest normal Resp normal respiratory effort and clear to auscultation bilaterally Auscultation: Negative for rales, rhonchi or wheezes Cardio regular rate GI normal to inspection, nondistended, normoactive bowel sounds Neuro oriented x3 and CN's II-XII intact bilaterally Sensorium / Orientation: awake and alert Psych mental status grossly normal Skin no rashes or lesions noted General Skin Exam: Negative for jaundice or pallor Heart Score History: Slightly/Non-Suspicious ECG: Normal Age: >/= 65 years Risk Factors: 1 or 2 Risk Factors Troponin: </= Normal Limit Score: 3 MDM MDM MDM Narrative Medical decision making narrative: Patient presenting with chest pain and palpitations. Differential includes acutecoronary syndrome, CHF, A-fib, a flutter, pneumonia, PE. She has a negative andappears to be in A-fib on arrival. Her EKG shows A-fib with rapid ventricular response at 144 bpm without sign of EKG changes from previous EKG 18 Jan 2023. This was also in RVR. CBC will be obtained to assess white blood cell count, hemoglobin, platelets. BMP to assess renal function, electrolytes, glucose. BNP to assess for CHF. NR will be obtained to make sure she is therapeutic. Chest x-ray to rule out CHF, pneumonia. Patient's blood pressure was low on arrival and she is given 2 L of normal saline. She is on oxygen but states she does wear oxygen at home as needed. She normally wears 2 L. Patient's blood pressure did improve and she was amiodarone 50 mg and her heart rate is now in the 90s. She feels much better. She is pain- free. Initial troponin 12. BNP 736. We will obtain a delta troponin. Delta troponin came back at 71 thereforethe changes greater than 20. Patient given aspirin. Discussed with hospitalistfor admission. Heart rate is still well controlled in the 60s currently on the monitor. Patient is requiring a little more oxygen at this point. I do not believe she has a PE because she is therapeutic with her INR. Impression: 1. Chest pain 2. A-fib with RVR 3. Hypotension resolved Lab Data Attestation: I reviewed the patient's lab results. Labs: Laboratory Results - last 24 hr 04/28/23 04/28/23 04/28/23 20:20 22:05 22:40 WBC 7.8 RBC 5.99 H Hgb 18.8 H* Hct 58.3 H MCV 97.3 MCH 31.4 MCHC 32.2 RDW Std Deviation 55.4 H RDW Coeff of Sarah 15.7 H Plt Count 290 MPV 10.6 Immature Gran % (Auto) 0.300 Neut % (Auto) 64.9 Lymph % (Auto) 23.7 Ector % (Auto) 8.2 Eos % (Auto) 2.0 Baso % (Auto) 0.9 Absolute Neuts (auto) 5.1 Absolute Lymphs (auto) 1.86 Nucleated RBC % 0 PT Cancelled 33.8 H INR Cancelled 3.3 Sodium 138 Potassium 3.6 Chloride 98 Carbon Dioxide 31.0 Anion Gap 9 BUN 11 Creatinine 0.97 Est GFR (MDRD) Af Amer 73 Est GFR (MDRD) Non-Af 60 BUN/Creatinine Ratio 11.3 Glucose 167 H Calcium 9.4 Troponin I High Sens 12 71 H B-Natriuretic Peptide 736.0 H Radiography Diagnostic Testing: Clinical Impression(s) from Imaging Studies Chest X-Ray 04/28/23 21:10 IMPRESSION: No evidence of cardiopulmonary disease. Electronically Signed: Vazquez Duran DO at 21:41 EDT , Discharge Plan Triage Chief Complaint: Palpitations ED Provider: Silver Harris Dx/Rx/DC Orders Prescriptions: No Action albuterol sulfate [ProAir HFA] 1 PUFF inhaler 1 puff inhalation Q4H PRN PRN (Reason: Sob &/Or Wheezing) Patient Comments: breathing cyclobenzaprine 10 MG tablet 10 mg PO TID PRN PRN (Reason: SPASMS) Qty: 60 0RF Patient Comments: muscle spasms Entresto 24-26 mg tablet 1 tab PO BID Patient Comments: TAKE 1 TABLET BY MOUTH TWICE A DAY metoprolol succinate 50 mg tablet extended release 24 hr PO Patient Comments: TAKE 1 TABLET BY MOUTH EVERY DAY ferrous sulfate 325 mg (65 mg iron) tablet 325 mg PO DAILY Patient Comments: TAKE 1 TABLET BY MOUTH EVERY OTHER DAY WITH FOOD furosemide 20 mg tablet 20 mg PO DAILY Patient Comments: TAKE 1 TABLET BY MOUTH EVERY DAY Primary Care Provider: Eliazar Barrios Referrals: Eliazar Barrios, [Primary Care Provider] - What to do if you have Problems For any increased pain, shortness of breath, bleeding, nausea or vomiting, chestpain, or any unexpected problems, contact your Primary Care Provider. Call [facility] ([phone]) or report to the closest Emergency Room. Call 911 if necessary. 04/28/23 2331 <Electronically signed by Silver Harris DO> Cosigner Signature (if applicable): CC: Dr. Elizaar Barrios DO ~ Signed [facility] Work Phone: 1(339) 599-513508-23-2023 Discharge summary Author Silver Harris [facility] April 28, 2023 11:31pm Note Date/Time April 28, 2023 10 :51pm [facility] Medical Records Department [address] [place] [address] Emergency Department Summary 04/28/23 MR#: [id number] Acct: [id number] Name: JANENE VASQUEZ Rep #:[id number] : 1955 67 From: Silver Harris DO PCP: Dr. Eliazar Barrios DO Status: ADM JORGE Location: [address] History of Present Illness Chief Complaint: Palpitations Narrative Narrative: 67-year-old female with recent new onset of A-fib and may currently on Coumadin and has been therapeutic. Patient on metoprolol 50 mg p.o. twice daily. She noemi Lasix 20 mg daily. Patient states she has no history of CHF. Patient statesthat she did have some pain between her shoulder blades that she radiated into her left arm. It is now gone. The onset of this was about 730 tonight. Patient states he had a headache with this. No fevers or chills. She does havesome nausea which resolved. [facility] Medical History (Updated 04/28/23 @ 23:[address] Marixa Gama DO) Acute bronchitis, unspecified Afib Chronic anticoagulation History of emphysema Hypertension Home Medications albuterol sulfate 90 mcg/actuation aerosol inhaler (ProAir HFA) 1 puff inhalation Q4H PRN PRN Sob &/Or Wheezing 04/21/16 [History Last Taken Unknown] cyclobenzaprine 10 mg tablet 10 mg PO TID PRN PRN SPASMS ##60 05/06/16 [Rx Last Taken Unknown] ferrous sulfate 325 mg (65 mg iron) tablet 325 mg PO DAILY 01/18/23 [History Last Taken Unknown] furosemide 20 mg tablet 20 mg PO DAILY 01/18/23 [History Last Taken Unknown] metoprolol succinate 50 mg tablet,extended release 24 hr mg PO 01/18/23 [History Last Taken Unknown] sacubitril 24 mg-valsartan 26 mg tablet (Entresto) 1 tab PO BID 01/18/23 [History Last Taken Unknown] Allergy/AdvReac Type Severity Reaction Status Date / Time No Known Allergies Allergy Verified 04/28/23 21:03 Surgical History H/O adenoidectomy History of appendectomy Hx of neck surgery Hx of tonsillectomy Total knee replacement status Social History Smoking Status: Current every day smoker tobacco type: cigarettes ROS ROS ED Constitutional Constitutional ED: Denies chills, fever(s) or sweats Eyes Eyes: Denies blurry vision or change in vision ENT ENT ED: Denies ear pain or sore throat Cardiovascular Cardiovascular: Reports chest pain, palpitations and racing heartbeat Respiratory/Chest Respiratory/Chest: Denies cough, dyspnea or sputum Gastrointestinal Gastrointestinal: Reports nausea; Denies abdominal pain, constipation, diarrhea or vomiting Genitourinary Genitourinary ED: Denies dysuria, hematuria or urinary frequency Musculoskeletal Musculoskeletal: Reports back pain; Denies arthralgias, myalgias or neck pain Integumentary Denies abscess, Abrasions or rash Neurologic Neurologic: Denies headache(s), paresthesias or weakness Psychiatric Psychiatric: Denies anxiety, depression, suicidal ideation or suicidal thoughts Endocrine Endocrinology: Denies polydipsia or polyuria EXAM Physical Exam Const Vital Signs: 04/28/23 20:57 04/28/23 21:04 04/28/23 21:04 Temperature 97.9 F Temperature Source Temporal Pulse Rate 142 H Respiratory Rate 20 H Respiratory Effort Normal Non-Labored Blood Pressure 90/65 Blood Pressure Mean 73 Pulse Ox 96 Oxygen Delivery Method Nasal Cannula Oxygen Flow Rate (L/min) 4 04/28/23 22:19 04/28/23 22:29 Temperature Temperature Source Pulse Rate 133 H 97 Respiratory Rate 30 H 27 H Respiratory Effort Blood Pressure 124/93 H 124/89 H Blood Pressure Mean 103 100 Pulse Ox 91 98 Oxygen Delivery Method Nasal Cannula Oxygen Flow Rate (L/min) 1 5 Positive well nourished General Appearance ED: NAD; Negative for pallor HEENT Reports moist mucous membranes normocephalic Eyes PERRL and EOMs intact bilaterally Chest Wall inspection of chest normal Resp normal respiratory effort and clear to auscultation bilaterally Auscultation: Negative for rales, rhonchi or wheezes Cardio regular rate GI normal to inspection, nondistended, normoactive bowel sounds Neuro oriented x3 and CN's II-XII intact bilaterally Sensorium / Orientation: awake and alert Psych mental status grossly normal Skin no rashes or lesions noted General Skin Exam: Negative for jaundice or pallor Heart Score History: Slightly/Non-Suspicious ECG: Normal Age: >/= 65 years Risk Factors: 1 or 2 Risk Factors Troponin: </= Normal Limit Score: 3 MDM MDM MDM Narrative Medical decision making narrative: Patient presenting with chest pain and palpitations. Differential includes acutecoronary syndrome, CHF, A-fib, a flutter, pneumonia, PE. She has a negative andappears to be in A-fib on arrival. Her EKG shows A-fib with rapid ventricular response at 144 bpm without sign of EKG changes from previous EKG 18 Jan 2023. This was also in RVR. CBC will be obtained to assess white blood cell count, hemoglobin, platelets. BMP to assess renal function, electrolytes, glucose. BNP to assess for CHF. NR will be obtained to make sure she is therapeutic. Chest x-ray to rule out CHF, pneumonia. Patient's blood pressure was low on arrival and she is given 2 L of normal saline. She is on oxygen but states she does wear oxygen at home as needed. She normally wears 2 L. Patient's blood pressure did improve and she was amiodarone 50 mg and her heart rate is now in the 90s. She feels much better. She is pain- free. Initial troponin 12. BNP 736. We will obtain a delta troponin. Delta troponin came back at 71 thereforethe changes greater than 20. Patient given aspirin. Discussed with hospitalistfor admission. Heart rate is still well controlled in the 60s currently on the monitor. Patient is requiring a little more oxygen at this point. I do not believe she has a PE because she is therapeutic with her INR. Impression: 1. Chest pain 2. A-fib with RVR 3. Hypotension resolved Lab Data Attestation: I reviewed the patient's lab results. Labs: Laboratory Results - last 24 hr 04/28/23 04/28/23 04/28/23 20:20 22:05 22:40 WBC 7.8 RBC 5.99 H Hgb 18.8 H* Hct 58.3 H MCV 97.3 MCH 31.4 MCHC 32.2 RDW Std Deviation 55.4 H RDW Coeff of Sarah 15.7 H Plt Count 290 MPV 10.6 Immature Gran % (Auto) 0.300 Neut % (Auto) 64.9 Lymph % (Auto) 23.7 Ector % (Auto) 8.2 Eos % (Auto) 2.0 Baso % (Auto) 0.9 Absolute Neuts (auto) 5.1 Absolute Lymphs (auto) 1.86 Nucleated RBC % 0 PT Cancelled 33.8 H INR Cancelled 3.3 Sodium 138 Potassium 3.6 Chloride 98 Carbon Dioxide 31.0 Anion Gap 9 BUN 11 Creatinine 0.97 Est GFR (MDRD) Af Amer 73 Est GFR (MDRD) Non-Af 60 BUN/Creatinine Ratio 11.3 Glucose 167 H Calcium 9.4 Troponin I High Sens 12 71 H B-Natriuretic Peptide 736.0 H Radiography Diagnostic Testing: Clinical Impression(s) from Imaging Studies Chest X-Ray 04/28/23 21:10 IMPRESSION: No evidence of cardiopulmonary disease. Electronically Signed: Vazquez Duran DO at 21:41 EDT , Discharge Plan Triage Chief Complaint: Palpitations ED Provider: Silver Harris Dx/Rx/DC Orders Prescriptions: No Action albuterol sulfate [ProAir HFA] 1 PUFF inhaler 1 puff inhalation Q4H PRN PRN (Reason: Sob &/Or Wheezing) Patient Comments: breathing cyclobenzaprine 10 MG tablet 10 mg PO TID PRN PRN (Reason: SPASMS) Qty: 60 0RF Patient Comments: muscle spasms Entresto 24-26 mg tablet 1 tab PO BID Patient Comments: TAKE 1 TABLET BY MOUTH TWICE A DAY metoprolol succinate 50 mg tablet extended release 24 hr PO Patient Comments: TAKE 1 TABLET BY MOUTH EVERY DAY ferrous sulfate 325 mg (65 mg iron) tablet 325 mg PO DAILY Patient Comments: TAKE 1 TABLET BY MOUTH EVERY OTHER DAY WITH FOOD furosemide 20 mg tablet 20 mg PO DAILY Patient Comments: TAKE 1 TABLET BY MOUTH EVERY DAY Primary Care Provider: Eliazar Barrios Referrals: Eliazar Barrios DO [Primary Care Provider] - What to do if you have Problems For any increased pain, shortness of breath, bleeding, nausea or vomiting, chestpain, or any unexpected problems, contact your Primary Care Provider. Call [facility] ([phone]) or report to the closest Emergency Room. Call 911 if necessary. 04/28/23 2331 <Electronically signed by Silver Harris DO> Cosigner Signature (if applicable): CC: Dr. Eliazar Barrios DO ~ Signed [facility] Work Phone: 1(828) 536-255211-16-2022 Discharge summary Date of Service 07/22/22 Discharge Diagnosis 1. Hypercapnic respiratory failure (J96.92 - ICD-10-CM) 2. COPD exacerbation (J44.1 - ICD-10-CM) 3. (HFpEF) heart failure with preserved ejection fraction (I50.30 - ICD-10-CM) 4. Acute hypoxemic respiratory failure (J96.01 - ICD-10-CM) 5. Pneumonia (J18.9 - ICD-10-CM) 6. Polycythemia (D75.1 - ICD-10-CM) 7. Tobacco abuse (Z72.0 - ICD-10-CM) 8. Metabolic encephalopathy (G93.41 - ICD-10-CM) Hospital Course Patient is a 66-year-old female with a past medical history significant for COPD, HFpEF, polycythemia, ongoing tobacco abuse and hypertension. Patient originally presented to [facility] emergency department with complaints of increased shortness of breath, cough, muscle aches and confusion. Patient states on Wednesday she began having a dry nonproductive cough. Patient states she often has flares at home but is treated with prednisone antibiotics and Mucinex and symptoms often improve. Patient did not see her primary physician. Symptoms kept worsening. Patient complained of severe fatigue. Patient then presented to [facility] emergency department for further evaluation. The emergency department patient was found to be hypoxic and in uncompensated hypercapnic respiratory failure.Patient was placed on BiPAP. CTA was completed showing no evidence of pulmonary embolism, Bronchialwall thickening with areas of bronchial lumen opacification, which could suggest acute bronchitis or sequelae of aspiration. Scattered areas of atelectasis, likely related. Scattered tree-in-bud nodularities throughout the lungs bilaterally, which can be seen in small airway disease of infectious or inflammatory etiology. Patient was then transferred to [facility] for further evaluation. Patient states she does not see a threading machine operator as outpatient. Patient smokes 1 pack/day for many years. Patient denies any home oxygen use. Patient complains of bilateral lower extremity edema beginning several months ago. Per patient her primary care physician felt this was due to her amlodipine. Patient did reduce her amlodipine from 10 mg to 5 mg but then increased amlodipine to10 mg on herown due to elevated blood pressures. Patients Entresto was held due to hyperkalemia. Patient underwent echocardiogram on 07/20, which demonstrated an EF of 65-70%. This is improved from her previous ECHO is May. Patient was able to be weaned down to 2L NC and qualified for home oxygen. Patients breathing greatly improved and she tolerated steroid taper well. Patients iron levels were checked due to complaints of restless legs. She was found to have low iron levels without anemia. She was given an IV infusion of Venofer and discharged home with iron supplements to take every other day. Patient was advised to seek pulmonology follow up as an outpatient. She was also advised on the importance of smoking cessation and oxygen safety. She is also encouraged to seek routine colon cancer screening. She will be discharged with one day of cefdinir to complete her pneumonia treatment. She will also be discharged with prednisone taper as well has PRN nebulizers. Patient can resume Entresto.At this time patient is medically optimized for discharge home. Patient and educated on signs and symptoms to report. Discussed with our collaborative physician . Allergies NKA Consults No qualifying data available. Objective Vitals and Measurements T: 36.8 C (Oral) TMIN: 36.6 C (Oral) TMAX: 36.8 C (Oral) HR: 76 RR: 20 BP: 154/90 SpO2: 93% Current Weight Current Weight: 62.5 kg (07/21/22) General: No acute distress. Appears older than stated age. Skin: Warm, Dry, and Intact. No rashes noted. HEENT: Head is normocephalic. Pupils equal round and reactive. Oral mucosa moist. Neck: No lymphadenopathy, thyromegaly noted. Lungs: Diminished bilaterally. Unlabored respirations. Occasional dry cough with minimal sputum production. Cardiovascular: Regular rhythm, S1/S2 noted. Gastrointestinal: Abdomen soft, rounded, non tender bowel sounds active. Extremities: No clubbing, cyanosis or edema. Peripheral pulses palpable. No calf tenderness. Adequate peripheral circulation. Neurological: Patient is awake, alert and oriented. Following commands and moving all extremities. Code Status No qualifying data available. Admission Date 07/19/22 Discharge Date 07/22/22 Patient Instructions Please follow-up with your primary care provider in the next 3 to 5 days. Please have blood work obtained prior to office appointment. Please establish with pulmonary as outpatient Please follow-up with gastroenterology for routine colon cancer screening Thank you for allowing me to participate in your care, Catrachita Russ 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 Medicine [phone] Medications New Prescription albuterol-ipratropium (albuterol-ipratropium 2.5 mg-0.5 mg/3 mL inhalation solution)3 Milliliter byinhalation four (4) times a day. Refills: 0. cefdinir (cefdinir 300 mg oral capsule)1 cap by mouth every 12 hours for 1 Days. Refills: 0. ferrous sulfate (IRON (ferrous sulfate 325 mg) 65 mg oral tablet)1 tab(s) by mouth every other day.Take with food.. Refills: 3. furosemide (Lasix 40 mg oral tablet)1 tab(s) by mouth once a day. Refills: 0. guaiFENesin (Mucinex 600 mg oral tablet, extended release)2 tab(s) by mouth two (2) times a day for5 Days. Refills: 0. nicotine (nicotine 21mg / 24hrs transdermal patch)1 patch(es) Transdermal once a day for 14 Days. Refills: 0. predniSONE (prednisone 20mg tab (TAPER))Taper 60-40-20 mg x 3 days each dose by mouth every day for9 Days. Refills: 0. Unchanged acetaminophen (acetaminophen 500 mg oral tablet)1 tab(s) by mouth every 4 hours as needed as neededfor fever. albuterol (ProAir HFA MDI (90 mcg/inh) inhalation aerosol)INHALE 1 PUFF BY MOUTH NEEDED. Refills: 3. amLODIPine (amLODIPine 5 mg oral tablet)1 tab(s) by mouth once a day. Refills: 1. cholecalciferol (Vitamin D3 50 mcg (2000 intl units) oral capsule)1 cap by mouth every day. Refills: 3. denosumab (Prolia 60 mg/mL subcutaneous solution)1 Milliliter Subcutaneous every 6 months. Refills:0. sacubitril-valsartan (Entresto 24 mg-26 mg oral tablet)1 tab(s) by mouth two (2) times a day for 90Days. Refills: 1. umeclidinium (Incruse Ellipta 62.5 mcg/inh inhalation powder)1 puff(s) by inhalation once a day for90 Days. Refills: 3. Discontinued hydroCHLOROthiazide (hydroCHLOROthiazide 12.5 mg oral capsule)1 cap by mouth once a day. Refills: 0. Follow Up Follow Up with [facility] will be providing your home O2. Please call [phone] when you are leaving the hospital, as well as when you arrive home. When Where: Follow Up with ELIAZAR BARRIOS DO When Within 2-4 days Why: Please call the office to schedule a follow up appointment Where: [address] [facility] [place] [address]- Follow Up with PATRICIO MANRIQUEZ MD When In 4 weeks Where: [address] [address] [place] [address]- [phone] Follow Up Labs/Studies Discharge Labs Discharge Outpatient Labwork - Ordered -- BMP, Hyperkalemia/Diuretic management, Results Notify to: ELIAZAR BARRIOS DO, Prior to office appointment, 07/22/22 11:37:00 EST Discharge Studies No Follow-up Studies Discharge Diet Discharge Diet - Ordered -- No changes were made to your diet during your hospital stay. Please resume your pre hospitalization diet on discharge., 07/22/22 11:31:00 EST Discharge Activity Discharge Activity - Ordered -- Resume your pre-hospitalization activity, 07/22/22 11:31:00 EST Condition on Discharge stable Readmission Risk/Palliative Score LACE Score: 11 (07/20/22 11:29:00) Palliative Total Score: 2 (07/20/22 11:30:00) Discharge Disposition home with home oxygen Information Provided To Patient and Time Spent >30 mins Digitally Signed by Wilma Zepeda Student 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 on 07/22/2022 03:[address] [id number] Discharge instructions Patient Education 07/22/2022 11:39:07 Steps to Quit Smoking Steps to Quit Smoking Smoking tobacco is the leading cause of preventable . It can affect almost every organ in the body. Smoking puts you and those around you at risk for developing many serious chronic diseases. Quitting smoking can be difficult, but it is one of the best things that you can do for your health. It is never too late to quit. How do I get ready to quit? When you decide to quit smoking, create a plan to help you succeed. Before you quit: Pick a date to quit. Set a date within the next 2 weeks to give you time to prepare. Write down the reasons why you are quitting. Keep this list in places where you will see it often. Tell your family, friends, and co-workers that you are quitting. Support from your loved ones can make quitting easier. Talk with your health care provider about your options for quitting smoking. Find out what treatment options are covered by your health insurance. Identify people, places, things, and activities that make you want to smoke (triggers). Avoid them. What first steps can I take to quit smoking? Throw away all cigarettes at home, at work, and in your car. Throw away smoking accessories, such as ashtrays and lighters. Clean your car. Make sure to empty the ashtray. Clean your home, including curtains and carpets. What strategies can I use to quit smoking? Talk with your health care provider about combining strategies, such as taking medicines while you are also receiving in-person counseling. Using these two strategies together makes you more likely to succeed in quitting than if you used either strategy on its own. If you are or , talk with your health care provider about finding counseling or other support strategies to quit smoking. Do not take medicine to help you quit smoking unless your health care provider tells you to do so. To quit smoking: Quit right away Quit smoking completely, instead of gradually reducing how much you smoke over a period of time. Research shows that stopping smoking right away is more successful than gradually quitting. Attend in-person counseling to help you build problem-solving skills. You are more likely to succeed in quitting if you attend counseling sessions regularly. Even short sessions of 10 minutes can be effective. Take medicine You may take medicines to help you quit smoking. Some medicines require a prescription and some youcan purchase fvxd-bga-gzrrinp. Medicines may have nicotine in them to replace the nicotine in cigarettes. Medicines may: Help to stop cravings. Help to relieve withdrawal symptoms. Your health care provider may recommend: Nicotine patches, gum, or lozenges. Nicotine inhalers or sprays. Non-nicotine medicine that is taken by mouth. Find resources Find resources and support systems that can help you to quit smoking and remain smoke-free after you quit. These resources are most helpful when you use them often. They include: Online chats with a counselor. Telephone quitlines. Printed self-help materials. Support groups or group counseling. Text messaging programs. Mobile phone apps or applications. Use apps that can help you stick to your quit plan by providing reminders, tips, and encouragement. There are many free apps for mobile devices as well as websites.Examples include Quit Guide from the CDC and smokefree.gov What things can I do to make it easier to quit? Reach out to your family and friends for support and encouragement. Call telephone quitlines (7-357-EDCTNOW), reach out to support groups, or work with a counselor for support. Ask people who smoke to avoid smoking around you. Avoid places that trigger you to smoke, such as bars, parties, or smoke-break areas at work. Spend time with people who do not smoke. Lessen the stress in your life. Stress can be a smoking trigger for some people. To lessen stress, try: ?Exercising regularly. ?Doing deep-breathing exercises. ?Doing yoga. ?Meditating. ?Performing a body scan. This involves closing your eyes, scanning your body from head to toe, and noticing which parts of your body are particularly tense. Try to relax the muscles in those areas. How will I feel when I quit smoking? Day 1 to 3 weeks Within the first 24 hours of quitting smoking, you may start to feel withdrawal symptoms. These symptoms are usually most noticeable 2 3 days after quitting, but they usually do not last for more than 2 3 weeks. You may experience these symptoms: Mood swings. Restlessness, anxiety, or irritability. Trouble concentrating. Dizziness. Strong cravings for sugary foods and nicotine. Mild weight gain. Constipation. Nausea. Coughing or a sore throat. Changes in how the medicines that you take for unrelated issues work in your body. Depression. Trouble sleeping (insomnia). Week 3 and afterward After the first 2 3 weeks of quitting, you may start to notice more positive results, such as: Improved sense of smell and taste. Decreased coughing and sore throat. Slower heart rate. Lower blood pressure. Clearer skin. The ability to breathe more easily. Fewer sick days. Quitting smoking can be very challenging. Do not get discouraged if you are not successful the first time. Some people need to make many attempts to quit before they achieve long-term success. Do your best to stick to your quit plan, and talk with your health care provider if you have any questionsor concerns. Summary Smoking tobacco is the leading cause of preventable . Quitting smoking is one of the best things that you can do for your health. When you decide to quit smoking, create a plan to help you succeed. Quit smoking right away, not slowly over a period of time. When you start quitting, seek help from your health care provider, family, or friends. This information is not intended to replace advice given to you by your health care provider. Make sure you discuss any questions you have with your health care provider. Document Released: 08/17/2002 Document Revised: 11/10/2019 Document Reviewed: 11/11/2019 [employer] Patient Education 2019 [employer]. 07/22/2022 11:38:50 Chronic Obstructive Pulmonary Disease, Heid-ls-Jeqs Chronic Obstructive Pulmonary Disease Chronic obstructive pulmonary disease (COPD) is a common lung problem. In COPD, the flow of air from the lungs is limited. The way your lungs work will probably never return to normal, but there are things you can do to improve you lungs and make yourself feel better. HOME CARE Take all medicines as told by your doctor. Only take ysxq-oza-vpcoxcp or prescription medicines as told by your doctor. Avoid medicines or cough syrups that dry up your airway (such as antihistamines) and do not allow you to get rid of thick spit. You do not need to avoid them if told differently by your doctor. If you smoke, stop. Smoking makes the problem worse. Avoid being around things that make your breathing worse (like smoke, chemicals, and fumes). Use oxygen therapy and therapy to help improve your lungs (pulmonary rehabilitation) if told by your doctor. If you need home oxygen therapy, ask your doctor if you should buy a tool to measure your oxygen level (oximeter). Avoid people who have a sickness you can catch (contagious). Avoid going outside when it is very hot, cold, or humid. Eat healthy foods. Eat smaller meals more often. Rest before meals. Stay active, but remember to also rest. Make sure to get all the shots (vaccines) your doctor recommends. Ask your doctor if you need a pneumonia shot. Learn and use tips on how to relax. Learn and use tips on how to control your breathing as told by your doctor. Try: ? Breathing in (inhaling) through your nose for 1 second. Then, pucker your lips and breath out (exhale) through your lips for 2 seconds. ? Putting one hand on your belly (abdomen). Breathe in slowly through your nose for 1 second. Your hand on your belly should move out. Pucker your lips and breathe out slowly through your lips. Your hand on your belly should move in as you breathe out. Learn and use controlled coughing to clear thick spit from your lungs. 1. Lean your head a little forward. 2. Breathe in deeply. 3. Try to hold your breath for 3 seconds. 4. Keep your mouth slightly open while coughing 2 times. 5. Spit any thick spit out into a tissue. 6. Rest and do the steps again 1 or 2 times as needed. GET HELP IF: You cough up more thick spit than usual. There is a change in the color or thickness of the spit. It is harder to breathe than usual. Your breathing is faster than usual. GET HELP RIGHT AWAY IF: You have shortness of breath while resting. You have shortness of breath that stops you from: ? Being able to talk. ? Doing normal activities. You chest hurts for longer than 5 minutes. Your skin color is more blue than usual. Your pulse oximeter shows that you have low oxygen for longer than 5 minutes. MAKE SURE YOU: Understand these instructions. Will watch your condition. Will get help right away if you are not doing well or get worse. Document Released: 02/08/2009 Document Revised: 06/13/2014 Document Reviewed: 04/19/2014 ExitCare Patient Information 2015 [employer]. This information is not intended to replace advicegiven to you by your health care provider. Make sure you discuss any questions you have with your health care provider. 07/20/2022 09:33:06 Chronic Obstructive Pulmonary Disease Exacerbation Chronic Obstructive Pulmonary Disease Exacerbation Chronic obstructive pulmonary disease (COPD) is a long-term (chronic) condition that affects the lungs. COPD is a general term that can be used to describe many different lung problems that cause lung swelling (inflammation) and limit airflow, including chronic bronchitis and emphysema. COPD exacerbations are episodes when breathing symptoms become much worse and require extra treatment. COPD exacerbations are usually caused by infections. Without treatment, COPD exacerbations can be severe and even life threatening. Frequent COPD exacerbations can cause further damage to the lungs. What are the causes? This condition may be caused by: Respiratory infections, including viral and bacterial infections. Exposure to smoke. Exposure to air pollution, chemical fumes, or dust. Things that give you an allergic reaction (allergens). Not taking your usual COPD medicines as directed. Underlying medical problems, such as congestive heart failure or infections not involving the lungs. In many cases, the cause (trigger) of this condition is not known. What increases the risk? The following factors may make you more likely to develop this condition: Smoking cigarettes. Old age. Frequent prior COPD exacerbations. What are the signs or symptoms? Symptoms of this condition include: Increased coughing. Increased production of mucus from your lungs (sputum). Increased wheezing. Increased shortness of breath. Rapid or labored breathing. Chest tightness. Less energy than usual. Sleep disruption from symptoms. Confusion or increased sleepiness. Often these symptoms happen or get worse even with the use of medicines. How is this diagnosed? This condition is diagnosed based on: Your medical history. A physical exam. You may also have tests, including: A chest X-ray. Blood tests. Lung (pulmonary) function tests. How is this treated? Treatment for this condition depends on the severity and cause of the symptoms. You may need to be admitted to a hospital for treatment. Some of the treatments commonly used to treat COPD exacerbations are: Antibiotic medicines. These may be used for severe exacerbations caused by a lung infection, such as pneumonia. Bronchodilators. These are inhaled medicines that expand the air passages and allow increased airflow. Steroid medicines. These act to reduce inflammation in the airways. They may be given with an inhaler, taken by mouth, or given through an IV tube inserted into one of your veins. Supplemental oxygen therapy. Airway clearing techniques, such as noninvasive ventilation (NIV) and positive expiratory pressure (PEP). These provide respiratory support through a mask or other noninvasive device. An example of this would be using a continuous positive airway pressure (CPAP) machine to improve delivery of oxygen into your lungs. Follow these instructions at home: Medicines Take guzz-ipd-qrhpzxo and prescription medicines only as told by your health care provider. It is important to use correct technique with inhaled medicines. If you were prescribed an antibiotic medicine or oral steroid, take it as told by your health care provider. Do not stop taking the medicine even if you start to feel better. Lifestyle Eat a healthy diet. Exercise regularly. Get plenty of sleep. Avoid exposure to all substances that irritate the airway, especially to tobacco smoke. Wash your hands often with soap and water to reduce the risk of infection. If soap and water are not available, use hand hotel maintenance technician. During flu season, avoid enclosed spaces that are crowded with people. General instructions Drink enough fluid to keep your urine clear or pale yellow (unless you have a medical condition that requires fluid restriction). Use a cool mist vaporizer. This humidifies the air and makes it easier for you to clear your chest when you cough. If you have a home nebulizer and oxygen, continue to use them as told by your health care provider. Keep all follow-up visits as told by your health care provider. This is important. How is this prevented? Stay up-to-date on pneumococcal and influenza (flu) vaccines. A flu shot is recommended every year to help prevent exacerbations. Do not use any products that contain nicotine or tobacco, such as cigarettes and e-cigarettes. Quitting smoking is very important in preventing COPD from getting worse and in preventing exacerbationsfrom happening as often. If you need help quitting, ask your health care provider. Follow all instructions for pulmonary rehabilitation after a recent exacerbation. This can help prevent future exacerbations. Work with your health care provider to develop and follow an action plan. This tells you what stepsto take when you experience certain symptoms. Contact a health care provider if: You have a worsening of your regular COPD symptoms. Get help right away if: You have worsening shortness of breath, even when resting. You have trouble talking. You have severe chest pain. You cough up blood. You have a fever. You have weakness, vomit repeatedly, or faint. You feel confused. You are not able to sleep because of your symptoms. You have trouble doing daily activities. Summary COPD exacerbations are episodes when breathing symptoms become much worse and require extra treatment above your normal treatment. Exacerbations can be severe and even life threatening. Frequent COPD exacerbations can cause further damage to your lungs. COPD exacerbations are usually triggered by infections such as the flu, colds, and even pneumonia. Treatment for this condition depends on the severity and cause of the symptoms. You may need to be admitted to a hospital for treatment. Quitting smoking is very important to prevent COPD from getting worse and to prevent exacerbations from happening as often. This information is not intended to replace advice given to you by your health care provider. Make sure you discuss any questions you have with your health care provider. Document Released: 06/19/2008 Document Revised: 08/05/2018 Document Reviewed: 09/27/2017 [employer] Patient Education 2020 [employer] Follow Up Care 07/19/2022 03:25:56 With:[facility] will be providing your home O2. Please call [phone] when you are leaving the hospital, as well as when you arrive home. Address: When: Unknown With:ELIAZAR BARRIOS DO Address: [address] [place] [address]- When:2-4 days Comments:Please call the office to schedule a follow up appointment With:PATRICIO MANRIQUEZ MD Address: [address] [place] [address] [facility] [place] [address]- [phone] When:Within 4 Week(s) [facility] 11-16-2022 Note Discharge Instructions Thank you for allowing [facility] to assist you with your healthcare needs. The following is importantdischarge information regarding your hospital visit. Your Care Team ELIAZAR BARRIOS DO Your Diagnosis Hypercapnic respiratory failure COPD exacerbation (HFpEF) heart failure with preserved ejection fraction Acute hypoxemic respiratory failure Pneumonia Polycythemia Tobacco abuse Metabolic encephalopathy What to do next Instructions From Your Doctor Please follow-up with your primary care provider in the next 3 to 5 days. Please have blood work obtained prior to office appointment. Please establish with pulmonary as outpatient Please follow-up with gastroenterology for routine colon cancer screening Thank you for allowing me to participate in your care, Catrachita Holguin 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-[facility] [phone] Scheduled Follow-Up Appointments Appointment Type When With Where Contact InformationMA Mammogram Screening Bilateral w/ Carter 09/04/2022 09:00 AM EST [facility] 12/10/2022 07:45 AM EDT ELIAZAR BARRIOS DO [address] [id number] Follow Up Appointments Follow Up with [facility] will be providing your home O2. Please call [phone] when you are leaving the hospital, as well as when you arrive home. When Where: Follow Up with ELIAZAR BARRIOS DO When Within 2-4 days Why: Please call the office to schedule a follow up appointment Where: [address] [place] [phone]- Follow Up with PATRICIO MANRIQUEZ MD When In 4 weeks Where: [address] [address] [place] [place] [address]- [phone] The Following Activity and Diet Have Been Ordered for You Discharge Activity - Ordered -- Resume your pre-hospitalization activity, 07/22/22 11:31:00 EST Discharge Diet - Ordered -- No changes were made to your diet during your hospital stay. Please resume your pre hospitalization diet on discharge., 07/22/22 11:31:00 EST The Following Equipment Has Been Ordered for You Home Equipment - Oxygen No qualifying data available. The Following Treatments Have Been Ordered for You Discharge Labs Discharge Outpatient Labwork - Ordered -- BMP, Hyperkalemia/Diuretic management, Results Notify to: ELIAZAR BARRIOS DO, Prior to office appointment, 07/22/22 11:37:00 EST Discharge Radiology No qualifying data available. Other Therapies No qualifying data available. Post Acute Orders No qualifying data available. Someone Will Contact You Regarding These Home Health Referrals No home referrals have been ordered for you. No one will call you. Allergies NKA Medications Please ask your primary doctor or pharmacist before taking any other medication not listed, including over the counter drugs, herbal medications, vitamins and or supplements as they may interact withyour home medications. What How Much When Instructions Last Dose New albuterol-ipratropium (albuterol- ipratropium 2.5 mg-0.5 mg/ 3 mL inhalation solution) 3 Milliliter by inhalation Four (4) times a day Pickup at [facility]/pharmacy #3321 New cefdinir (cefdinir 300 mg oral capsule) 1 cap by mouth Every 12 hours Duration: 1 Days Pickup at [facility]/pharmacy #3321 New ferrous sulfate (IRON (ferrous sulfate 325 mg) 65 mg oral tablet) 1 tab(s) by mouth Every other day Refills: 3 Take with food. Pickup at [facility]/pharmacy #3321 New furosemide (Lasix 40 mg oral tablet) 1 tab(s) by mouth Once a day Pickup at [facility]/pharmacy #3321 New guaiFENesin (Mucinex 600 mg oral tablet, extended release) 2 tab(s) by mouth Two (2) times a day Duration: 5 Days Pickup at [facility]/pharmacy #3321 New nicotine (nicotine 21mg / 24hrs transdermal patch) 1 patch(es) Transdermal Once a day Duration: 14 Days Pickup at [facility]/pharmacy #3321 New predniSONE (prednisone 20mg tab (TAPER)) Taper 60-40-20 mg x 3 days each dose by mouth Every day Duration: 9 Days Pickup at [facility]/pharmacy #3321 Unchanged acetaminophen (acetaminophen 500 mg oral tablet) 1 tab(s) by mouth Every 4 hours as needed for as needed for fever Unchanged albuterol (ProAir HFA MDI (90 mcg/ inh) inhalation aerosol) See instructions INHALE 1 PUFF BY MOUTH NEEDED Unchanged amLODIPine (amLODIPine 5 mg oral tablet) 1 tab(s) by mouth Once a day Unchanged cholecalciferol (Vitamin D3 50 mcg (2000 intl units) oral capsule) 1 cap by mouth Every day Unchanged denosumab (Prolia 60 mg/ mL subcutaneous solution) 1 Milliliter Subcutaneous Every 6 months Unchanged sacubitril-valsartan (Entresto 24 mg-26 mg oral tablet) 1 tab(s) by mouth Two (2) times a day Duration: 90 Days Unchanged umeclidinium (Incruse Ellipta 62.5 mcg/ inh inhalation powder) 1 puff(s) by inhalation Once a day Duration: 90 Days Pharmacy Information [facility]/pharmacy #3321: [address] [place], [place] [phone] What How Much When Comments Stop Taking hydroCHLOROthiazide (hydroCHLOROthiazide 12.5 mg oral capsule) 1 cap by mouth Once a day Please take this list to your next doctor s visit. Bring all medications you take, including over the counter medications, herbals and other supplements with you to your doctor s visit. Patients and families are reminded to discard old lists and to update any records with all medication providers or retail pharmacies. Education Materials Steps to Quit Smoking Smoking tobacco is the leading cause of preventable . It can affect almost every organ in the body. Smoking puts you and those around you at risk for developing many serious chronic diseases. Quitting smoking can be difficult, but it is one of the best things that you can do for your health. It is never too late to quit. How do I get ready to quit? When you decide to quit smoking, create a plan to help you succeed. Before you quit: Pick a date to quit. Set a date within the next 2 weeks to give you time to prepare. Write down the reasons why you are quitting. Keep this list in places where you will see it often. Tell your family, friends, and co-workers that you are quitting. Support from your loved ones can make quitting easier. Talk with your health care provider about your options for quitting smoking. Find out what treatment options are covered by your health insurance. Identify people, places, things, and activities that make you want to smoke (triggers). Avoid them. What first steps can I take to quit smoking? Throw away all cigarettes at home, at work, and in your car. Throw away smoking accessories, such as ashtrays and lighters. Clean your car. Make sure to empty the ashtray. Clean your home, including curtains and carpets. What strategies can I use to quit smoking? Talk with your health care provider about combining strategies, such as taking medicines while you are also receiving in-person counseling. Using these two strategies together makes you more likely to succeed in quitting than if you used either strategy on its own. If you are or , talk with your health care provider about finding counseling or other support strategies to quit smoking. Do not take medicine to help you quit smoking unless your health care provider tells you to do so. To quit smoking: Quit right away Quit smoking completely, instead of gradually reducing how much you smoke over a period of time. Research shows that stopping smoking right away is more successful than gradually quitting. Attend in-person counseling to help you build problem-solving skills. You are more likely to succeed in quitting if you attend counseling sessions regularly. Even short sessions of 10 minutes can be effective. Take medicine You may take medicines to help you quit smoking. Some medicines require a prescription and some youcan purchase isuy-yoz-frhjzzl. Medicines may have nicotine in them to replace the nicotine in cigarettes. Medicines may: Help to stop cravings. Help to relieve withdrawal symptoms. Your health care provider may recommend: Nicotine patches, gum, or lozenges. Nicotine inhalers or sprays. Non-nicotine medicine that is taken by mouth. Find resources Find resources and support systems that can help you to quit smoking and remain smoke-free after you quit. These resources are most helpful when you use them often. They include: Online chats with a counselor. Telephone quitlines. Printed self-help materials. Support groups or group counseling. Text messaging programs. Mobile phone apps or applications. Use apps that can help you stick to your quit plan by providing reminders, tips, and encouragement. There are many free apps for mobile devices as well as websites.Examples include Quit Guide from the CDC and smokefree.gov What things can I do to make it easier to quit? Reach out to your family and friends for support and encouragement. Call telephone quitlines (6-791-SHAG-NOW), reach out to support groups, or work with a counselor for support. Ask people who smoke to avoid smoking around you. Avoid places that trigger you to smoke, such as bars, parties, or smoke-break areas at work. Spend time with people who do not smoke. Lessen the stress in your life. Stress can be a smoking trigger for some people. To lessen stress, try: ? Exercising regularly. ? Doing deep-breathing exercises. ? Doing yoga. ? Meditating. ? Performing a body scan. This involves closing your eyes, scanning your body from head to toe, and noticing which parts of your body are particularly tense. Try to relax the muscles in those areas. How will I feel when I quit smoking? Day 1 to 3 weeks Within the first 24 hours of quitting smoking, you may start to feel withdrawal symptoms. These symptoms are usually most noticeable 2 3 days after quitting, but they usually do not last for more than 2 3 weeks. You may experience these symptoms: Mood swings. Restlessness, anxiety, or irritability. Trouble concentrating. Dizziness. Strong cravings for sugary foods and nicotine. Mild weight gain. Constipation. Nausea. Coughing or a sore throat. Changes in how the medicines that you take for unrelated issues work in your body. Depression. Trouble sleeping (insomnia). Week 3 and afterward After the first 2 3 weeks of quitting, you may start to notice more positive results, such as: Improved sense of smell and taste. Decreased coughing and sore throat. Slower heart rate. Lower blood pressure. Clearer skin. The ability to breathe more easily. Fewer sick days. Quitting smoking can be very challenging. Do not get discouraged if you are not successful the first time. Some people need to make many attempts to quit before they achieve long-term success. Do your best to stick to your quit plan, and talk with your health care provider if you have any questionsor concerns. Summary Smoking tobacco is the leading cause of preventable . Quitting smoking is one of the best things that you can do for your health. When you decide to quit smoking, create a plan to help you succeed. Quit smoking right away, not slowly over a period of time. When you start quitting, seek help from your health care provider, family, or friends. This information is not intended to replace advice given to you by your health care provider. Make sure you discuss any questions you have with your health care provider. Document Released: 08/17/2002 Document Revised: 11/10/2019 Document Reviewed: 11/11/2019 Elsevier Patient Education 2020 [employer]. Chronic Obstructive Pulmonary Disease Chronic obstructive pulmonary disease (COPD) is a common lung problem. In COPD, the flow of air from the lungs is limited. The way your lungs work will probably never return to normal, but there are things you can do to improve you lungs and make yourself feel better. HOME CARE Take all medicines as told by your doctor. Only take txnk-pgv-nknykyg or prescription medicines as told by your doctor. Avoid medicines or cough syrups that dry up your airway (such as antihistamines) and do not allow you to get rid of thick spit. You do not need to avoid them if told differently by your doctor. If you smoke, stop. Smoking makes the problem worse. Avoid being around things that make your breathing worse (like smoke, chemicals, and fumes). Use oxygen therapy and therapy to help improve your lungs (pulmonary rehabilitation) if told by your doctor. If you need home oxygen therapy, ask your doctor if you should buy a tool to measure your oxygen level (oximeter). Avoid people who have a sickness you can catch (contagious). Avoid going outside when it is very hot, cold, or humid. Eat healthy foods. Eat smaller meals more often. Rest before meals. Stay active, but remember to also rest. Make sure to get all the shots (vaccines) your doctor recommends. Ask your doctor if you need a pneumonia shot. Learn and use tips on how to relax. Learn and use tips on how to control your breathing as told by your doctor. Try: ? Breathing in (inhaling) through your nose for 1 second. Then, pucker your lips and breath out (exhale) through your lips for 2 seconds. ? Putting one hand on your belly (abdomen). Breathe in slowly through your nose for 1 second. Your hand on your belly should move out. Pucker your lips and breathe out slowly through your lips. Your hand on your belly should move in as you breathe out. Learn and use controlled coughing to clear thick spit from your lungs. 1. Lean your head a little forward. 2. Breathe in deeply. 3. Try to hold your breath for 3 seconds. 4. Keep your mouth slightly open while coughing 2 times. 5. Spit any thick spit out into a tissue. 6. Rest and do the steps again 1 or 2 times as needed. GET HELP IF: You cough up more thick spit than usual. There is a change in the color or thickness of the spit. It is harder to breathe than usual. Your breathing is faster than usual. GET HELP RIGHT AWAY IF: You have shortness of breath while resting. You have shortness of breath that stops you from: ? Being able to talk. ? Doing normal activities. You chest hurts for longer than 5 minutes. Your skin color is more blue than usual. Your pulse oximeter shows that you have low oxygen for longer than 5 minutes. MAKE SURE YOU: Understand these instructions. Will watch your condition. Will get help right away if you are not doing well or get worse. Document Released: 02/08/2009 Document Revised: 06/13/2014 Document Reviewed: 04/19/2014 ExitCare Patient Information 2015 [employer]. This information is not intended to replace advicegiven to you by your health care provider. Make sure you discuss any questions you have with your health care provider. Chronic Obstructive Pulmonary Disease Exacerbation Chronic obstructive pulmonary disease (COPD) is a long-term (chronic) condition that affects the lungs. COPD is a general term that can be used to describe many different lung problems that cause lung swelling (inflammation) and limit airflow, including chronic bronchitis and emphysema. COPD exacerbations are episodes when breathing symptoms become much worse and require extra treatment. COPD exacerbations are usually caused by infections. Without treatment, COPD exacerbations can be severe and even life threatening. Frequent COPD exacerbations can cause further damage to the lungs. What are the causes? This condition may be caused by: Respiratory infections, including viral and bacterial infections. Exposure to smoke. Exposure to air pollution, chemical fumes, or dust. Things that give you an allergic reaction (allergens). Not taking your usual COPD medicines as directed. Underlying medical problems, such as congestive heart failure or infections not involving the lungs. In many cases, the cause (trigger) of this condition is not known. What increases the risk? The following factors may make you more likely to develop this condition: Smoking cigarettes. Old age. Frequent prior COPD exacerbations. What are the signs or symptoms? Symptoms of this condition include: Increased coughing. Increased production of mucus from your lungs (sputum). Increased wheezing. Increased shortness of breath. Rapid or labored breathing. Chest tightness. Less energy than usual. Sleep disruption from symptoms. Confusion or increased sleepiness. Often these symptoms happen or get worse even with the use of medicines. How is this diagnosed? This condition is diagnosed based on: Your medical history. A physical exam. You may also have tests, including: A chest X-ray. Blood tests. Lung (pulmonary) function tests. How is this treated? Treatment for this condition depends on the severity and cause of the symptoms. You may need to be admitted to a hospital for treatment. Some of the treatments commonly used to treat COPD exacerbations are: Antibiotic medicines. These may be used for severe exacerbations caused by a lung infection, such as pneumonia. Bronchodilators. These are inhaled medicines that expand the air passages and allow increased airflow. Steroid medicines. These act to reduce inflammation in the airways. They may be given with an inhaler, taken by mouth, or given through an IV tube inserted into one of your veins. Supplemental oxygen therapy. Airway clearing techniques, such as noninvasive ventilation (NIV) and positive expiratory pressure (PEP). These provide respiratory support through a mask or other noninvasive device. An example of this would be using a continuous positive airway pressure (CPAP) machine to improve delivery of oxygen into your lungs. Follow these instructions at home: Medicines Take bnrg-umj-tnatviw and prescription medicines only as told by your health care provider. It is important to use correct technique with inhaled medicines. If you were prescribed an antibiotic medicine or oral steroid, take it as told by your health care provider. Do not stop taking the medicine even if you start to feel better. Lifestyle Eat a healthy diet. Exercise regularly. Get plenty of sleep. Avoid exposure to all substances that irritate the airway, especially to tobacco smoke. Wash your hands often with soap and water to reduce the risk of infection. If soap and water are not available, use hand hotel maintenance technician. During flu season, avoid enclosed spaces that are crowded with people. General instructions Drink enough fluid to keep your urine clear or pale yellow (unless you have a medical condition that requires fluid restriction). Use a cool mist vaporizer. This humidifies the air and makes it easier for you to clear your chest when you cough. If you have a home nebulizer and oxygen, continue to use them as told by your health care provider. Keep all follow-up visits as told by your health care provider. This is important. How is this prevented? Stay up-to-date on pneumococcal and influenza (flu) vaccines. A flu shot is recommended every year to help prevent exacerbations. Do not use any products that contain nicotine or tobacco, such as cigarettes and e-cigarettes. Quitting smoking is very important in preventing COPD from getting worse and in preventing exacerbationsfrom happening as often. If you need help quitting, ask your health care provider. Follow all instructions for pulmonary rehabilitation after a recent exacerbation. This can help prevent future exacerbations. Work with your health care provider to develop and follow an action plan. This tells you what stepsto take when you experience certain symptoms. Contact a health care provider if: You have a worsening of your regular COPD symptoms. Get help right away if: You have worsening shortness of breath, even when resting. You have trouble talking. You have severe chest pain. You cough up blood. You have a fever. You have weakness, vomit repeatedly, or faint. You feel confused. You are not able to sleep because of your symptoms. You have trouble doing daily activities. Summary COPD exacerbations are episodes when breathing symptoms become much worse and require extra treatment above your normal treatment. Exacerbations can be severe and even life threatening. Frequent COPD exacerbations can cause further damage to your lungs. COPD exacerbations are usually triggered by infections such as the flu, colds, and even pneumonia. Treatment for this condition depends on the severity and cause of the symptoms. You may need to be admitted to a hospital for treatment. Quitting smoking is very important to prevent COPD from getting worse and to prevent exacerbations from happening as often. This information is not intended to replace advice given to you by your health care provider. Make sure you discuss any questions you have with your health care provider. Document Released: 06/19/2008 Document Revised: 08/05/2018 Document Reviewed: 09/27/2017 Luxr Patient Education 2020 [employer]. Additional Information VACCINATE! IT SAVES LIVES! Members of the community who have not yet received the COVID-19 vaccine and would like to receive it can visit one of [facility] vaccine clinics. There are many vaccine clinic locations within the [facility]. For locations and available times, please visit [email or web address] It is important to note that some COVID mobile vaccine clinics are held outdoors and may be canceled in rainy or stormy conditions. To learn more about pediatric vaccinations (ages 5-11), we invite you to visit the [facility] webpage. [email or web address] learn more about the COVID-19 vaccine, we invite you to visit the [facility] website for a list of frequently asked questions. [email or web address].pdf [email or web address] Patient Portal Access Instructions: Stay connected with your healthcare team and access your personal medical information anytime with the [email or web address] Patient Portal.If you would like a full copy of your medical records, please contact the [facility] Medical Records Department, Wednesday through Wednesday between 8a.m. and 4:30p.m. Please follow the directions below to access the portal: 1.Access the email account you provided upon registration to the hospital.2.Look for an invitation email from [facility].3.Open the email and access the invitation link: Accept Invitation to [email or web address].Fill in the required george to create your account. Sign into [email or web address] with your username and password that you created in the above steps to stay up to date. You can then view a summary of results, a summary of your visits, and the ability to download your summaries to your computer or send the information securely to a physician. Remember that your healthcare information is confidential, so carefully consider who you will allow to register on the [email or web address] Patient Portal for access to your information. You can also access the [facility] [facility] Patient Portal on the [employer] vicenta. Simply click on Health Records under [facility] and then click on the [employer] logo. HOW TO SAFELY DISPOSE OF PRESCRIPTION MEDICATIONS Please use one of the following methods to safely dispose of your unused medications. 1.Use a drug disposal kit: the drug disposal pouch allows you to safely discard your old and unuseddrugs. Ask your nurse to give you one when you are discharged.2.Visit a local take-back location: Many local pharmacies and police departments have programs that collect old and unwanted prescriptiondrugs. Call your local pharmacy or go to [email or web address] to find one close to you.3.Make use of household items: Use cat litter or old coffee grounds to dispose medications if other options arenot available. Mix your drugs with these household products, seal them in an airtight container andthrow it into the garbage. Call [facility]: [phone] to be sure your drugs can be disposed of in this way. Some medicines may require a different approach.4.Never flush your medications down the toilet. IF YOU HAVE BEEN PRESCRIBED AN OPIOID FOR PAIN If you have been prescribed an opioid (such as hydrocodone, oxycodone or morphine), it is critical to understand the possible side effects and risks of opioid pain medications. Even when taken as directed, opioids can have several side effects including: Tolerance, meaning you might need to take more of a medication for the same pain relief. Nausea, vomiting and/or constipation. Sleepiness, dizziness, dry mouth, confusion, depression or itching. Physical dependence, meaning you have withdrawal symptoms when a medication is stopped, can develop within a few days. KNOW YOUR RESPONSIBILITIES It is important to know exactly how much and how often to take the opioid pain medications you are prescribed. Never take opioids in higher amounts or more often than prescribed. Do not combine opioids with alcohol or other drugs that cause drowsiness, such as benzodiazepines, also known as benzos, including diazepam and alprazolam, muscle relaxants or sleep aids. Never sell or share prescription opioids. This is illegal. Store opioids in a secure place and out of reach of others (including children, family, friends and visitors). The last page of this document has been signed and retained as a CHART COPY. Signatures Patient Education Materials Steps to Quit Smoking Chronic Obstructive Pulmonary Disease, Ckpz-xq-Qnyr Chronic Obstructive Pulmonary Disease Exacerbation Medication Leaflets My discharge plan and instructions have been reviewed and explained to me and I,JANENE VASQUEZ understand my current condition and have read and understand these discharge instructions. I have received a written copy of the plan/instructions. If I have questions, I am aware that I should contact my doctor. Patient/Sewing Machine Attachment Tester Signature: Date/Time: Relationship to Patient: Witness Name/Signature: [id number] Respiratory therapy Hospital Progress note Respiratory Therapy Evaluation Entered On: 07/22/2022 7:01 EST Performed On: 07/22/2022 7:01 EST by LUIS Blanca Respiratory Therapy Evaluation Chest X-Ray : Infiltrates in more than one lobe Respiratory Therapy Evaluation Score : 9 Respiratory Evaluation Triage Score : 4 - (6-10) Freq: TIDRT & Albuterol Q2hRT prn RT Assessment [Frequency/Schedule] : TID RT AND Q2 RT PRN LUIS Blanca - 07/22/2022 7:02 EST Pulmonary Status : Severe chronic exacerbation Surgical Status : No surgeries Breath Sounds (RT) : Decreased bilaterally Respiratory Pattern (RT) : Regular RR=12-20 Cough (RT) : Strong, non-productive Level of Activity : Ambulatory Mental Status : Alert, oriented LUIS Blanca - 07/22/2022 7:01 EST Digitally Signed by LUIS Blanca on 07/22/2022 07:01 AM Digitally Signed by LUIS Blanca RRT on 07/22/2022 07:[address] [id number] Progress note Date of Service 07/21/2022 Chief Complaint Shortness of Breath Subjective Patient is a 66-year-old female with a past medical history significant for COPD, HFpEF, polycythemia, ongoing tobacco abuse and hypertension. Patient originally presented to [facility] emergency department with complaints of increased shortness of breath, cough, muscle aches and confusion. Patient states on Wednesday she began having a dry nonproductive cough. Patient states she often has flares at home but is treated with prednisone antibiotics and Mucinex and symptoms often improve. Patient did not see her primary physician. Symptoms kept worsening. Patient complained of severe fatigue. Patient then presented to [facility] emergency department for further evaluation[facility] was found to be hypoxic and in uncompensated hypercapnic respiratory failure. Patient was placed on BiPAP. CTA was completed showing no evidence of pulmonary embolism, Bronchial wall thickening with areas of bronchial lumen opacification, which could suggest acute bronchitis or sequelae of aspiration. Scattered areas of atelectasis, likely related. Scattered tree-in-bud nodularities throughout the lungs bilaterally, which can be seen in small airway disease of infectious or inflammatory etiology. Patient was then transferred to [facility] for further evaluation. Patient states she does not see a threading machine operator as outpatient. Patient smokes 1 pack/day for many years. Patient denies any home oxygen use. Patient complains of bilateral lower extremity edema beginning several months ago. Per patient her primary care physician felt this was due to her amlodipine. Patient did reduce her amlodipine from 10 mg to 5 mg but then increased amlodipine to10 mg on her owndue to elevated blood pressures. Patient underwent echocardiogram on 07/20, which demonstrated an EF of 65-70%. This is improved from her previous ECHO is May. Patient is examined today, her is at bedside. Patient reports that she feels significantly better today. Her shortness of breath is improving, and her oxygen is being weaned as tolerated. Shesays her breathing feels better than it did before she was hospitalized. Patients mentation has improved, she appears to have improved to her baseline mentation. She has been able to tolerate walking back and forth to the bathroom without significant shortness of breath. Her leg edema has improved.She denies any pain, fever, chills, chest pain, nausea, or vomiting. Denies any overnight events. Discussed results of ECHO and the plan for outpatient pulmonology follow up. All questions addressed. Objective Vitals and Measurements T: 36.6 C (Oral) TMIN: 36.6 C (Oral) TMAX: 37.0 C (Axillary) HR: 79 RR: 18 BP: 157/86 SpO2: 94% HT: 162.6 cm WT: 62.5 kg Intake and Output 7AM Yesterday to 7AM Today Intake and Output (Last 24 hours) Intake Output Total Summary Total Intake 0.00 Total Output 0.00 Fluid Balance 0.00 Physical Exam General: No acute distress. Appears older than stated age. Skin: Warm, Dry, and Intact. No rashes noted. HEENT: Head is normocephalic. Pupils equal round and reactive. Oral mucosa moist. Neck: No lymphadenopathy, thyromegaly noted. Lungs: Diminished bilaterally. Unlabored respirations. Occasional dry cough with minimal sputum production. Cardiovascular: Regular rhythm, S1/S2 noted. Gastrointestinal: Abdomen soft, rounded, non tender bowel sounds active. Extremities: No clubbing, cyanosis or edema. Peripheral pulses palpable. No calf tenderness. Adequate peripheral circulation. Neurological: Patient is awake, alert and oriented. Following commands and moving all extremities. Current Weight Current Weight: 62.5 kg (07/21/22) Medications Medications (17) Active Scheduled: (11) albuterol - ipratropium 2.5 mg-0.5 mg/3 mL Inhal Nahomy UD 3 mL, Inhalation, QIDRT amLODIPine 5 mg tablet 5 mg 1 tab(s), Oral, qDay budesonide 0.25 mg/2 mL Susp UD 0.25 mg 2 mL, Inhalation, BIDRT cefTRIAXone IVP syringe 1 gram(s) 10 mL, IV Push (INT), qDay cholecalciferol 50 mcg tablet (Vit D3 2000 unit(s)) 50 mcg 1 tab(s), Oral, Daily furosemide 40 mg tablet 40 mg 1 tab(s), Oral, qDay guaifenesin 600 mg ER 1,200 mg 2 tab(s), Oral, BID heparin 5,000 units/mL (1 mL) vial 5,000 unit(s) 1 mL, Subcutaneous, q8h methylPREDNISolone succ 125mg (62.5mg/1mL) after dilution 60 mg 0.96 mL, IV Push, q8h Nicoderm patch REMOVAL 1 EA, Miscellaneous, q24h nicotine 21 mg/24 hr ER patch 21 mg 1 patch(es), Transdermal, q24h Continuous: (0) PRN: (6) acetaminophen 325 mg Tablet 650 mg 2 tab(s), Oral, q4h albuterol 0.083% Soln UD (2.5mg/3 mL) 2.5 mg 3 mL, Inhalation, q4hRT melatonin 3 mg tablet 3 mg 1 tab(s), Oral, qHS melatonin 3 mg tablet 3 mg 1 tab(s), Oral, qHS ondansetron 2 mg/ 1 mL 2 mL INJ 4 mg 2 mL, IV Push, q4h polyethylene glycol 3350 - UD packet 17 gram(s) 15 mL, Oral, qDay Lab Results 07/21 05:25 WBC: 9.1 Hgb: 14.7 Hct: 45.6 Platelet: 209 Neutrophil %: 93.0 H Glucose Level: 130 H Sodium Level: 140 Potassium Level: 3.9 BUN: 20.0 Creatinine Lvl (s): 0.60 07/20 11:12 WBC: 12.0 H Hgb: 16.9 H Hct: 53.1 H Platelet: 331 Neutrophil %: 90.9 H 07/20 02:33 WBC: 8.7 Hgb: 15.0 Hct: 47.1 H Platelet: 210 Neutrophil %: 92.6 H Glucose Level: 176 H Sodium Level: 146 H Potassium Level: 5.6 H BUN: 29.0 H Creatinine Lvl (s): 0.88 EKG No qualifying data available. Assessment/Plan 1. Hypercapnic respiratory failure 2. COPD exacerbation 3. (HFpEF) heart failure with preserved ejection fraction 4. Acute hypoxemic respiratory failure 5. Pneumonia 6. Polycythemia 7. Tobacco abuse 8. Metabolic encephalopathy Plan: Continue to wean oxygen as tolerated. Goal SP02 88% and above. Bronchodilators scheduled and PRN. Patient will likely need home O2 and Bipap. Discussed outpatient pulmonology followup. Decrease Solu-Medrol to 40 mg BID. Continue Mucinex 1200 BID. Encourage use of IS. Hyperkalemia has resolved, plan to restart Entresto tomorrow, recheck BMP in the am. Hypotension has resolved, amlodipine was given today. HFpEF-patient is near euvolemic. Lasix was changed to PO. Patients ankle edema has greatly improved. Continue ceftriaxone for pneumonia. Digitally Signed by Wilma Zepeda Student JEFF on 07/21/2022 02:[address] [id number] Progress note Date of Service 07/21/2022 Chief Complaint Shortness of Breath Subjective Patient is a 66-year-old female with a past medical history significant for COPD, HFpEF, polycythemia, ongoing tobacco abuse and hypertension. Patient originally presented to [facility] emergency department with complaints of increased shortness of breath, cough, muscle aches and confusion. Patient states on Wednesday she began having a dry nonproductive cough. Patient states she often has flares at home but is treated with prednisone antibiotics and Mucinex and symptoms often improve. Patient did not see her primary physician. Symptoms kept worsening. Patient complained of severe fatigue. Patient then presented to [facility] emergency department for further evaluation. The emergency d epartment patient was found to be hypoxic and in uncompensated hypercapnic respiratory failure. Patient was placed on BiPAP. CTA was completed showing no evidence of pulmonary embolism, Bronchial wall thickening with areas of bronchial lumen opacification, which could suggest acute bronchitis or sequelae of aspiration. Scattered areas of atelectasis, likely related. Scattered tree-in-bud nodularities throughout the lungs bilaterally, which can be seen in small airway disease of infectious or inflammatory etiology. Patient was then transferred to [facility] for further evaluation. Patient states she does not see a threading machine operator as outpatient. Patient smokes 1 pack/day for many years. Patient denies any home oxygen use. Patient complains of bilateral lower extremity edema beginning several months ago. Per patient her primary care physician felt this was due to her amlodipine. Patient did reduce her amlodipine from 10 mg to 5 mg but then increased amlodipine to10 mg on her owndue to elevated blood pressures. Patient underwent echocardiogram on 07/20, which demonstrated an EF of 65-70%. This is improved from her previous ECHO is May. Patient is examined today, her is at bedside. Patient reports that she feels significantly better today. Her shortness of breath is improving, and her oxygen is being weaned as tolerated. Shesays her breathing feels better than it did before she was hospitalized. Patients mentation has improved, she appears to have improved to her baseline mentation. She has been able to tolerate walking back and forth to the bathroom without significant shortness of breath. Her leg edema has improved.She denies any pain, fever, chills, chest pain, nausea, or vomiting. Denies any overnight events. Discussed results of ECHO and the plan for outpatient pulmonology follow up. All questions addressed. Objective Vitals and Measurements T: 36.6 C (Oral) TMIN: 36.6 C (Oral) TMAX: 37.0 C (Axillary) HR: 79 RR: 18 BP: 157/86 SpO2: 94% HT:162.6 cm WT: 62.5 kg Intake and Output 7AM Yesterday to 7AM Today Intake and Output (Last 24 hours) Intake Output Total Summary Total Intake 0.00 Total Output 0.00 Fluid Balance 0.00 Physical Exam General: No acute distress. Appears older than stated age. Skin: Warm, Dry, and Intact. No rashes noted. HEENT: Head is normocephalic. Pupils equal round and reactive. Oral mucosa moist. Neck: No lymphadenopathy, thyromegaly noted. Lungs: Diminished bilaterally. Unlabored respirations. Occasional dry cough with minimal sputum production. Cardiovascular: Regular rhythm, S1/S2 noted. Gastrointestinal: Abdomen soft, rounded, non tender bowel sounds active. Extremities: No clubbing, cyanosis or edema. Peripheral pulses palpable. No calf tenderness. Adequate peripheral circulation. Neurological: Patient is awake, alert and oriented. Following commands and moving all extremities. Current Weight Current Weight: 62.5 kg (07/21/22) Medications Medications (17) Active Scheduled: (11) albuterol - ipratropium 2.5 mg-0.5 mg/3 mL Inhal Nahomy UD 3 mL, Inhalation, QIDRT amLODIPine 5 mg tablet 5 mg 1 tab(s), Oral, qDay budesonide 0.25 mg/2 mL Susp UD 0.25 mg 2 mL, Inhalation, BIDRT cefTRIAXone IVP syringe 1 gram(s) 10 mL, IV Push (INT), qDay cholecalciferol 50 mcg tablet (Vit D3 2000 unit(s)) 50 mcg 1 tab(s), Oral, Daily furosemide 40 mg tablet 40 mg 1 tab(s), Oral, qDay guaifenesin 600 mg ER 1,200 mg 2 tab(s), Oral, BID heparin 5,000 units/mL (1 mL) vial 5,000 unit(s) 1 mL, Subcutaneous, q8h methylPREDNISolone succ 125mg (62.5mg/1mL) after dilution 60 mg 0.96 mL, IV Push, q8h Nicoderm patch REMOVAL 1 EA, Miscellaneous, q24h nicotine 21 mg/24 hr ER patch 21 mg 1 patch(es), Transdermal, q24h Continuous: (0) PRN: (6) acetaminophen 325 mg Tablet 650 mg 2 tab(s), Oral, q4h albuterol 0.083% Soln UD (2.5mg/3 mL) 2.5 mg 3 mL, Inhalation, q4hRT melatonin 3 mg tablet 3 mg 1 tab(s), Oral, qHS melatonin 3 mg tablet 3 mg 1 tab(s), Oral, qHS ondansetron 2 mg/ 1 mL 2 mL INJ 4 mg 2 mL, IV Push, q4h polyethylene glycol 3350 - UD packet 17 gram(s) 15 mL, Oral, qDay Lab Results 07/21 05:25 WBC: 9.1 Hgb: 14.7 Hct: 45.6 Platelet: 209 Neutrophil %: 93.0 H Glucose Level: 130 H Sodium Level: 140 Potassium Level: 3.9 BUN: 20.0 Creatinine Lvl (s): 0.60 07/20 11:12 WBC: 12.0 H Hgb: 16.9 H Hct: 53.1 H Platelet: 331 Neutrophil %: 90.9 H 07/20 02:33 WBC: 8.7 Hgb: 15.0 Hct: 47.1 H Platelet: 210 Neutrophil %: 92.6 H Glucose Level: 176 H Sodium Level: 146 H Potassium Level: 5.6 H BUN: 29.0 H Creatinine Lvl (s): 0.88 EKG No qualifying data available. Assessment/Plan 1. Hypercapnic respiratory failure 2. COPD exacerbation 3. (HFpEF) heart failure with preserved ejection fraction 4. Acute hypoxemic respiratory failure 5. Pneumonia 6. Polycythemia 7. Tobacco abuse 8. Metabolic encephalopathy Plan: Continue to wean oxygen as tolerated. Goal SP02 88% and above. Bronchodilators scheduled and PRN. Patient will likely need home O2 and Bipap. Discussed outpatient pulmonology followup. Decrease Solu-Medrol to 40 mg BID. Continue Mucinex 1200 BID. Encourage use of IS. Hyperkalemia has resolved, plan to restart Entresto tomorrow, recheck BMP in the am. Hypotension has resolved, amlodipine was given today. HFpEF-patient is near euvolemic. Lasix was changed to PO. Patients ankle edema has greatly improved. Continue ceftriaxone for pneumonia. Digitally Signed by Wilma Zepeda Student 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 on 07/21/2022 02:[address] [id number] Progress note Date of Service 07/21/2022 Chief Complaint Shortness of Breath Subjective Patient is a 66-year-old female with a past medical history significant for COPD, HFpEF, polycythemia, ongoing tobacco abuse and hypertension. Patient originally presented to [facility] emergency department with complaints of increased shortness of breath, cough, muscle aches and confusion. Patient states on Wednesday she began having a dry nonproductive cough. Patient states she often has flares at home but is treated with prednisone antibiotics and Mucinex and symptoms often improve. Patient did not see her primary physician. Symptoms kept worsening. Patient complained of severe fatigue. Patient then presented to [facility] emergency department for further evaluation. The emergency d epartment patient was found to be hypoxic and in uncompensated hypercapnic respiratory failure. Patient was placed on BiPAP. CTA was completed showing no evidence of pulmonary embolism, Bronchial wall thickening with areas of bronchial lumen opacification, which could suggest acute bronchitis or sequelae of aspiration. Scattered areas of atelectasis, likely related. Scattered tree-in-bud nodularities throughout the lungs bilaterally, which can be seen in small airway disease of infectious or inflammatory etiology. Patient was then transferred to [facility] for further evaluation. Patient states she does not see a threading machine operator as outpatient. Patient smokes 1 pack/day for many years. Patient denies any home oxygen use. Patient complains of bilateral lower extremity edema beginning several months ago. Per patient her primary care physician felt this was due to her amlodipine. Patient did reduce her amlodipine from 10 mg to 5 mg but then increased amlodipine to10 mg on her owndue to elevated blood pressures. Patient underwent echocardiogram on 07/20, which demonstrated an EF of 65-70%. This is improved from her previous ECHO is May. Patient is examined today, her is at bedside. Patient reports that she feels significantly better today. Her shortness of breath is improving, and her oxygen is being weaned as tolerated. Shesays her breathing feels better than it did before she was hospitalized. Patients mentation has improved, she appears to have improved to her baseline mentation. She has been able to tolerate walking back and forth to the bathroom without significant shortness of breath. Her leg edema has improved.She denies any pain, fever, chills, chest pain, nausea, or vomiting. Denies any overnight events. Discussed results of ECHO and the plan for outpatient pulmonology follow up. All questions addressed. Objective Vitals and Measurements T: 36.6 C (Oral) TMIN: 36.6 C (Oral) TMAX: 37.0 C (Axillary) HR: 79 RR: 18 BP: 157/86 SpO2: 94% HT:162.6 cm WT: 62.5 kg Intake and Output 7AM Yesterday to 7AM Today Intake and Output (Last 24 hours) Intake Output Total Summary Total Intake 0.00 Total Output 0.00 Fluid Balance 0.00 Physical Exam General: No acute distress. Appears older than stated age. Skin: Warm, Dry, and Intact. No rashes noted. HEENT: Head is normocephalic. Pupils equal round and reactive. Oral mucosa moist. Neck: No lymphadenopathy, thyromegaly noted. Lungs: Diminished bilaterally. Unlabored respirations. Occasional dry cough with minimal sputum production. Cardiovascular: Regular rhythm, S1/S2 noted. Gastrointestinal: Abdomen soft, rounded, non tender bowel sounds active. Extremities: No clubbing, cyanosis or edema. Peripheral pulses palpable. No calf tenderness. Adequate peripheral circulation. Neurological: Patient is awake, alert and oriented. Following commands and moving all extremities. Current Weight Current Weight: 62.5 kg (07/21/22) Medications Medications (17) Active Scheduled: (11) albuterol - ipratropium 2.5 mg-0.5 mg/3 mL Inhal Nahomy UD 3 mL, Inhalation, QIDRT amLODIPine 5 mg tablet 5 mg 1 tab(s), Oral, qDay budesonide 0.25 mg/2 mL Susp UD 0.25 mg 2 mL, Inhalation, BIDRT cefTRIAXone IVP syringe 1 gram(s) 10 mL, IV Push (INT), qDay cholecalciferol 50 mcg tablet (Vit D3 2000 unit(s)) 50 mcg 1 tab(s), Oral, Daily furosemide 40 mg tablet 40 mg 1 tab(s), Oral, qDay guaifenesin 600 mg ER 1,200 mg 2 tab(s), Oral, BID heparin 5,000 units/mL (1 mL) vial 5,000 unit(s) 1 mL, Subcutaneous, q8h methylPREDNISolone succ 125mg (62.5mg/1mL) after dilution 60 mg 0.96 mL, IV Push, q8h Nicoderm patch REMOVAL 1 EA, Miscellaneous, q24h nicotine 21 mg/24 hr ER patch 21 mg 1 patch(es), Transdermal, q24h Continuous: (0) PRN: (6) acetaminophen 325 mg Tablet 650 mg 2 tab(s), Oral, q4h albuterol 0.083% Soln UD (2.5mg/3 mL) 2.5 mg 3 mL, Inhalation, q4hRT melatonin 3 mg tablet 3 mg 1 tab(s), Oral, qHS melatonin 3 mg tablet 3 mg 1 tab(s), Oral, qHS ondansetron 2 mg/ 1 mL 2 mL INJ 4 mg 2 mL, IV Push, q4h polyethylene glycol 3350 - UD packet 17 gram(s) 15 mL, Oral, qDay Lab Results 07/21 05:25 WBC: 9.1 Hgb: 14.7 Hct: 45.6 Platelet: 209 Neutrophil %: 93.0 H Glucose Level: 130 H Sodium Level: 140 Potassium Level: 3.9 BUN: 20.0 Creatinine Lvl (s): 0.60 07/20 11:12 WBC: 12.0 H Hgb: 16.9 H Hct: 53.1 H Platelet: 331 Neutrophil %: 90.9 H 07/20 02:33 WBC: 8.7 Hgb: 15.0 Hct: 47.1 H Platelet: 210 Neutrophil %: 92.6 H Glucose Level: 176 H Sodium Level: 146 H Potassium Level: 5.6 H BUN: 29.0 H Creatinine Lvl (s): 0.88 EKG No qualifying data available. Assessment/Plan 1. Hypercapnic respiratory failure 2. COPD exacerbation 3. (HFpEF) heart failure with preserved ejection fraction 4. Acute hypoxemic respiratory failure 5. Pneumonia 6. Polycythemia 7. Tobacco abuse 8. Metabolic encephalopathy Plan: Continue to wean oxygen as tolerated. Goal SP02 88% and above. Bronchodilators scheduled and PRN. Patient will likely need home O2 and Bipap. Discussed outpatient pulmonology followup. Decrease Solu-Medrol to 40 mg BID. Continue Mucinex 1200 BID. Encourage use of IS. Hyperkalemia has resolved, plan to restart Entresto tomorrow, recheck BMP in the am. Hypotension has resolved, amlodipine was given today. HFpEF-patient is near euvolemic. Lasix was changed to PO. Patients ankle edema has greatly improved. Continue ceftriaxone for pneumonia. Digitally Signed by Wilma Zepeda APRN on 07/21/2022 02:[address] [id number] Note Date of Service 07/20/22 Chief Complaint Confusion Cough Shortness of breath Subjective Patient is a 66-year-old female with a past medical history significant for COPD, HFpEF, polycythemia, ongoing tobacco abuse and hypertension. Patient originally presented to [facility] emergency department with complaints of increased shortness of breath, cough, muscle aches and confusion. Patient states on Wednesday she began having a dry nonproductive cough. Patient states she often has flares at home but is treated with prednisone antibiotics and Mucinex and symptoms often improve. Patient did not see her primary physician. Symptoms kept worsening. Patient complained of severe fatigue. Patient then presented to [facility] emergency department for further evaluation. The emergency department patient was found to be hypoxic and in uncompensated hypercapnic respiratory failure. Patient was placed on BiPAP. CTA was completed showing no evidence of pulmonary embolism, Bronchial wall thickening with areas of bronchial lumen opacification, which could suggest acute bronchitis or sequelae of aspiration. Scattered areas of atelectasis, likely related. Scattered tree-in-bud nodularities throughout the lungs bilaterally, which can be seen in small airway disease of infectious or inflammatory etiology. Patient was then transferred to [facility] for further evaluation. Patient states she does not see a threading machine operator as outpatient. Patient smokes 1 pack/day for many years. Patient denies any home oxygen use. Patient complains of bilateral lower extremity edema beginning several months ago. Per patient her primary care physician felt this was due to her amlodipine. Patient did reduce her amlodipine from 10 mg to 5 mg but then increased amlodipine to10 mg on her own due to elevated blood pressures. Patient is currently resting in bed, son, and grandson are at bedside. Patient is alert andoriented. She answers questions appropriately. However she is slightly forgetful at times. Patientstates that breathing is much better than yesterday. Per family at bedside mental status is also improved. Patient complains of an occasional loose nonproductive cough. She denies any chest pain, nausea, vomiting, lightness, dizziness, fever and chills. Bilateral lower extremity edema continues nhung improved. Patient denies any acute overnight. Patient complains of not sleeping well due to hospitalization. Objective Vitals and Measurements T: 36.5 C (Axillary) TMIN: 36.0 C (Oral) TMAX: 36.8 C (Oral) HR: 64 RR: 22 BP: 147/82 SpO2: 98% Intake and Output 7AM Yesterday to 7AM Today Intake and Output (Last 24 hours) Intake Oral Intake 600.00 Output Urine Count 2.00 Total Summary Total Intake 600.00 Total Output 0.00 Fluid Balance 600.00 Physical Exam Vitals Signs(Last 24 hrs)__ Last Charted Minimum Maximum Temp 36.2(JUL 20:) 36.4(JUL 19 23:06) 36.4(JUL 19 23:06) Heart Rate 72(JUL 20 07:00) 71(JUL 20 02:06) 73(JUL 19 23:06) Resp Rate H 22(JUL 20:) 20(JUL 19 15:07) H 22(JUL 19 23:06) SBP H 140(JUL 20:) 118(JUL 19 15:12) H 147(JUL 20 07:00) DBP 80(JUL 20:) 69(JUL 19 15:) 82(JUL 20 07:00) Physical Exam General: No acute distress. Appears older then stated age. Alert and Appropriate Skin: No rash. Warm, Dry, Intact HEENT: Head is normocephalic and atraumatic. No lesions. Pupils equal in size. Extraocular movements within normal limits. Nose: No septal deviation. Mouth: Oropharynx mucosa is without lesion. Neck: Supple. No lymphadenopathy, thyromegaly noted. Lungs: Bilaterally very diminished breath sounds with scattered wheezes. Unlabored at rest. Occasional persistent dry cough with no sputum production. Cardiovascular: Heart is regular rhythm, S1S2, No extra-audible heart tones Abdomen: Abdomen is soft, nontender. Bowel sounds positive all four quadrants. Extremities: No clubbing, cyanosis or edema. Peripheral pulses palpable. No calf tenderness. Adequate peripheral circulation. Neurological: The patient is awake, oriented to time, people and place. Following simple commands, moving all extremities. No qualifying data available. Medications Medications (17) Active Scheduled: (11) albuterol - ipratropium 2.5 mg-0.5 mg/3 mL Inhal Nahomy UD 3 mL, Inhalation, QIDRT amLODIPine 5 mg tablet 5 mg 1 tab(s), Oral, qDay budesonide 0.25 mg/2 mL Susp UD 0.25 mg 2 mL, Inhalation, BIDRT cefTRIAXone IVP syringe 1 gram(s) 10 mL, IV Push (INT), qDay cholecalciferol 50 mcg tablet (Vit D3 2000 unit(s)) 50 mcg 1 tab(s), Oral, Daily furosemide 20 mg/2 mL vial 20 mg 2 mL, IV Push, BID guaifenesin 600 mg ER 1,200 mg 2 tab(s), Oral, BID heparin 5,000 units/mL (1 mL) vial 5,000 unit(s) 1 mL, Subcutaneous, q8h methylPREDNISolone succ 125mg (62.5mg/1mL) after dilution 60 mg 0.96 mL, IV Push, q8h Nicoderm patch REMOVAL 1 EA, Miscellaneous, q24h nicotine 21 mg/24 hr ER patch 21 mg 1 patch(es), Transdermal, q24h Continuous: (0) PRN: (6) acetaminophen 325 mg Tablet 650 mg 2 tab(s), Oral, q4h albuterol 0.083% Soln UD (2.5mg/3 mL) 2.5 mg 3 mL, Inhalation, q4hRT melatonin 3 mg tablet 3 mg 1 tab(s), Oral, qHS melatonin 3 mg tablet 3 mg 1 tab(s), Oral, qHS ondansetron 2 mg/ 1 mL 2 mL INJ 4 mg 2 mL, IV Push, q4h polyethylene glycol 3350 - UD packet 17 gram(s) 15 mL, Oral, qDay Lab Results 07/20 02:33 WBC: 8.7 Hgb: 15.0 Hct: 47.1 H Platelet: 210 Neutrophil %: 92.6 H Glucose Level: 176 H Sodium Level: 146 H Potassium Level: 5.6 H BUN: 29.0 H Creatinine Lvl (s): 0.88 07/19 05:25 WBC: 4.9 Hgb: 16.1 H Hct: 51.0 H Platelet: 233 Neutrophil %: 91.1 H Glucose Level: 145 H Sodium Level: 133 L Potassium Level: 5.8 H BUN: 20.0 Creatinine Lvl (s): 0.78 EKG No qualifying data available. Assessment/Plan 1. Hypercapnic respiratory failure 2. COPD exacerbation 3. (HFpEF) heart failure with preserved ejection fraction 4. Acute hypoxemic respiratory failure 5. Pneumonia 6. Polycythemia 7. Tobacco abuse 8. Metabolic encephalopathy Acute on chronic hypercapnic respiratory failure/ COPD is in acute exacerbation. Patient's breathing is improved since admission but not at baseline. -Will repeat venous blood gases. Patient continues to mentate appropriately. - Will continue to provide supportive care with O2, bronchodilators scheduled and as needed to maintain O2 saturation greater or equal to 88%, continue home medications. Patient continue to require supplemental oxygen at 6L [place]. It is very likely patient will require oxygen support at home. - Acapella q4 hour while awake. -Continue IV Solu-Medrol 60 mg every 8 hours -Mucinex 1200mg BID Hyperkalemia- elevated today. Continue lasix 20mg IVP today. Continue to hold Entresto. Kayexalate.Repeat BMP in a.m. History of hypertension- currently patient is slightly hypotension today. Blood pressures improvedtoday. We will continue to monitor adjust as needed. Hold Norvasc at this time. Continue to monitor. Patient is asymptomatic. HFpEF-patient is near euvolemic. Continue IV diuresis. Repeat BMP in AM. -BNP 42044 on admission -Echocardiogram from May 07, 2021 reviewed. Patient had a 6 beat run of V. tach yesterday. Family reports increased bilateral lower extremity edema over the past several months. Will repeat echocardiogram. Pneumonia-continue IV ceftriaxone -Atypicals negative. Azithromycin discontinued -ID panel by PCR negative Code status: Full Code. Confirmed with patient and . Copy of patient's living will placed onchart. Plan of care discussed in depth with patient, son, grandson and [place] at bedside. All questions answered. Patient verbalized understanding is agreeable to plan of care. Discussed with my collaborating physician Dr. Ruchi Ambrocio This dictation was performed using voice recognition software and may include grammatical and/or spelling errors. Orders: [id number], Start: 07/19/22 11:36:00 EST, Dose = 1,200 mg, = 2 tab(s), Oral, BID, 0, 07/19/22 11:05:00 EST Acapella Breathing Device Echocardiogram Adult Venous Blood Gas (AH) Digitally Signed by CATRACHITA HOLGUIN on 07/20/2022 02:[address] [id number] Note Date of Service 07/20/22 Chief Complaint Confusion Cough Shortness of breath Subjective Patient is a 66-year-old female with a past medical history significant for COPD, HFpEF, polycythemia, ongoing tobacco abuse and hypertension. Patient originally presented to [facility] emergency department with complaints of increased shortness of breath, cough, muscle aches and confusion. Patient states on Wednesday she began having a dry nonproductive cough. Patient states she often has flares at home but is treated with prednisone antibiotics and Mucinex and symptoms often improve. Patient did not see her primary physician. Symptoms kept worsening. Patient complained of severe fatigue. Patient then presented to [facility] emergency department for further evaluation. The emergency d epartment patient was found to be hypoxic and in uncompensated hypercapnic respiratory failure. Patient was placed on BiPAP. CTA was completed showing no evidence of pulmonary embolism, Bronchial wall thickening with areas of bronchial lumen opacification, which could suggest acute bronchitis or sequelae of aspiration. Scattered areas of atelectasis, likely related. Scattered tree-in-bud nodularities throughout the lungs bilaterally, which can be seen in small airway disease of infectious or inflammatory etiology. Patient was then transferred to [facility] for further evaluation. Patient states she does not see a threading machine operator as outpatient. Patient smokes 1 pack/day for many years. Patient denies any home oxygen use. Patient complains of bilateral lower extremity edema beginning several months ago. Per patient her primary care physician felt this was due to her amlodipine. Patient did reduce her amlodipine from 10 mg to 5 mg but then increased amlodipine to10 mg on her owndue to elevated blood pressures. Patient is currently resting in bed, son, and grandson are at bedside. Patient is alert andoriented. She answers questions appropriately. However she is slightly forgetful at times. Patient states that breathing is much better than yesterday. Per family at bedside mental status is also improved. Patient complains of an occasional loose nonproductive cough. She denies any chest pain, nausea, vomiting, lightness, dizziness, fever and chills. Bilateral lower extremity edema continues to be improved. Patient denies any acute overnight. Patient complains of not sleeping well due to hospitalization. Objective Vitals and Measurements T: 36.5 C (Axillary) TMIN: 36.0 C (Oral) TMAX: 36.8 C (Oral) HR: 64 RR: 22 BP: 147/82 SpO2: 98% Intake and Output 7AM Yesterday to 7AM Today Intake and Output (Last 24 hours) Intake Oral Intake 600.00 Output Urine Count 2.00 Total Summary Total Intake 600.00 Total Output 0.00 Fluid Balance 600.00 Physical Exam Vitals Signs(Last 24 hrs)__ Last Charted Minimum Maximum Temp 36.2(JUL 20:) 36.4(JUL 19 23:06) 36.4(JUL 19 23:06) Heart Rate 72(JUL 20 07:00) 71(JUL 20 02:06) 73(JUL 19 23:06) Resp Rate H 22(JUL 20:15) 20(JUL 19 15:07) H 22(JUL 19 23:06) SBP H 140(JUL 20:) 118(JUL 19 15:12) H 147(JUL 20 07:00) DBP 80(JUL 20:) 69(JUL 19 15:) 82(JUL 20 07:00) Physical Exam General: No acute distress. Appears older then stated age. Alert and Appropriate Skin: No rash. Warm, Dry, Intact HEENT: Head is normocephalic and atraumatic. No lesions. Pupils equal in size. Extraocular movements within normal limits. Nose: No septal deviation. Mouth: Oropharynx mucosa is without lesion. Neck: Supple. No lymphadenopathy, thyromegaly noted. Lungs: Bilaterally very diminished breath sounds with scattered wheezes. Unlabored at rest. Occasional persistent dry cough with no sputum production. Cardiovascular: Heart is regular rhythm, S1S2, No extra-audible heart tones Abdomen: Abdomen is soft, nontender. Bowel sounds positive all four quadrants. Extremities: No clubbing, cyanosis or edema. Peripheral pulses palpable. No calf tenderness. Adequate peripheral circulation. Neurological: The patient is awake, oriented to time, people and place. Following simple commands, moving all extremities. No qualifying data available. Medications Medications (17) Active Scheduled: (11) albuterol - ipratropium 2.5 mg-0.5 mg/3 mL Inhal Nahomy UD 3 mL, Inhalation, QIDRT amLODIPine 5 mg tablet 5 mg 1 tab(s), Oral, qDay budesonide 0.25 mg/2 mL Susp UD 0.25 mg 2 mL, Inhalation, BIDRT cefTRIAXone IVP syringe 1 gram(s) 10 mL, IV Push (INT), qDay cholecalciferol 50 mcg tablet (Vit D3 2000 unit(s)) 50 mcg 1 tab(s), Oral, Daily furosemide 20 mg/2 mL vial 20 mg 2 mL, IV Push, BID guaifenesin 600 mg ER 1,200 mg 2 tab(s), Oral, BID heparin 5,000 units/mL (1 mL) vial 5,000 unit(s) 1 mL, Subcutaneous, q8h methylPREDNISolone succ 125mg (62.5mg/1mL) after dilution 60 mg 0.96 mL, IV Push, q8h Nicoderm patch REMOVAL 1 EA, Miscellaneous, q24h nicotine 21 mg/24 hr ER patch 21 mg 1 patch(es), Transdermal, q24h Continuous: (0) PRN: (6) acetaminophen 325 mg Tablet 650 mg 2 tab(s), Oral, q4h albuterol 0.083% Soln UD (2.5mg/3 mL) 2.5 mg 3 mL, Inhalation, q4hRT melatonin 3 mg tablet 3 mg 1 tab(s), Oral, qHS melatonin 3 mg tablet 3 mg 1 tab(s), Oral, qHS ondansetron 2 mg/ 1 mL 2 mL INJ 4 mg 2 mL, IV Push, q4h polyethylene glycol 3350 - UD packet 17 gram(s) 15 mL, Oral, qDay Lab Results 07/20 02:33 WBC: 8.7 Hgb: 15.0 Hct: 47.1 H Platelet: 210 Neutrophil %: 92.6 H Glucose Level: 176 H Sodium Level: 146 H Potassium Level: 5.6 H BUN: 29.0 H Creatinine Lvl (s): 0.88 07/19 05:25 WBC: 4.9 Hgb: 16.1 H Hct: 51.0 H Platelet: 233 Neutrophil %: 91.1 H Glucose Level: 145 H Sodium Level: 133 L Potassium Level: 5.8 H BUN: 20.0 Creatinine Lvl (s): 0.78 EKG No qualifying data available. Assessment/Plan 1. Hypercapnic respiratory failure 2. COPD exacerbation 3. (HFpEF) heart failure with preserved ejection fraction 4. Acute hypoxemic respiratory failure 5. Pneumonia 6. Polycythemia 7. Tobacco abuse 8. Metabolic encephalopathy Acute on chronic hypercapnic respiratory failure/ COPD is in acute exacerbation. Patient's breathing is improved since admission but not at baseline. -Will repeat venous blood gases. Patient continues to mentate appropriately. - Will continue to provide supportive care with O2, bronchodilators scheduled and as needed to maintain O2 saturation greater or equal to 88%, continue home medications. Patient continue to require supplemental oxygen at 6L [place]. It is very likely patient will require oxygen support at home. - Acapella q4 hour while awake. -Continue IV Solu-Medrol 60 mg every 8 hours -Mucinex 1200mg BID Hyperkalemia- elevated today. Continue lasix 20mg IVP today. Continue to hold Entresto. Kayexalate.Repeat BMP in a.m. History of hypertension- currently patient is slightly hypotension today. Blood pressures improved today. We will continue to monitor adjust as needed. Hold Norvasc at this time. Continue to monitor.Patient is asymptomatic. HFpEF-patient is near euvolemic. Continue IV diuresis. Repeat BMP in AM. -BNP 55609 on admission -Echocardiogram from May 07, 2021 reviewed. Patient had a 6 beat run of V. tach yesterday. Family reports increased bilateral lower extremity edema over the past several months. Will repeat echocardiogram. Pneumonia-continue IV ceftriaxone -Atypicals negative. Azithromycin discontinued -ID panel by PCR negative Code status: Full Code. Confirmed with patient and . Copy of patient's living will placed onchart. Plan of care discussed in depth with patient, son, grandson and Manuel at bedside. All questions answered. Patient verbalized understanding is agreeable to plan of care. Discussed with my collaborating physician Dr. Ruchi Ambrocio This dictation was performed using voice recognition software and may include grammatical and/or spelling errors. Orders: guaiFENesin, Start: 07/19/22 11:36:00 EST, Dose = 1,200 mg, = 2 tab(s), Oral, BID, 0, 07/19/22 11:05:00 EST Acapella Breathing Device Echocardiogram Adult Venous Blood Gas (AH) Digitally Signed by CATRACHITA HOLGUIN on 07/20/2022 02:[address] [id number] Note Date of Service 07/19/22 Chief Complaint Shortness of breath Subjective Patient is a 66-year-old female with a past medical history significant for COPD, HFpEF, polycythemia, ongoing tobacco abuse and hypertension. Patient originally presented to [facility] emergency department with complaints of increased shortness of breath, cough, muscle aches and confusion. Patient states on Wednesday she began having a dry nonproductive cough. Patient states she often has flares at home but is treated with prednisone antibiotics and Mucinex and symptoms often improve. Patient did not see her primary physician. Symptoms kept worsening. Patient complains of severe fatigue.Patient then presented to [facility] emergency department for further evaluation. The emergency de partment patient was found to be hypoxic and in uncompensated hypercapnic respiratory failure. Patient was placed on BiPAP. CTA was completed showing no evidence of pulmonary embolism, Bronchial wallthickening with areas of bronchial lumen opacification, which could suggest acute bronchitis or sequelae of aspiration. Scattered areas of atelectasis, likely related. Scattered tree-in-bud nodularities throughout the lungs bilaterally, which can be seen in small airway disease of infectious or inflammatory etiology. Patient was then transferred to [facility] for further evaluation. Patient states she does not see a threading machine operator as outpatient. Patient smokes 1 pack/day for many years. Patient denies any home oxygen use. Patient complains of bilateral lower extremity edema beginning several months ago. Per patient her primary care physician felt this was due to her amlodipine. Patient did reduce her amlodipine from 10 mg to 5 mg but then increased amlodipine to10 mg on her own due to elevated blood pressures. Patient resting in bed, Manuel is at bedside. Patient is alert and oriented to time place andsituation. She answers all questions appropriately. Patient states that shortness of breath is significantly improved. Patient states she feels that her respiratory status is at baseline. Patient complains of an occasional dry nonproductive cough. Patient states that lower extremity edema is significantly improved. Patient's states you can even see her ankles because she was so swollen.Patient denies shortness of breath, chest pain, palpitations, dizziness, blurred vision, difficultyspeaking, nausea, vomiting, diarrhea, constipation, urinary symptoms, night sweats, fever and chills. Hungry. Patient ate her lunch without difficulty. No evidence of aspiration during this exam. Objective Vitals and Measurements T: 36.4 C (Oral) TMIN: 36.4 C (Oral) TMAX: 36.8 C (Oral) HR: 74 RR: 24 BP: 103/65 SpO2: 99% Intake and Output 7AM Yesterday to 7AM Today Intake and Output (Last 24 hours) Intake Output Total Summary Total Intake 0.00 Total Output 0.00 Fluid Balance 0.00 Physical Exam Vitals Signs(Last 24 hrs)__ Last Charted Minimum Maximum Temp 36.8(JUL 19:) 36.8(JUL 19:) 36.8(JUL 19:) Heart Rate 84(JUL 19:19) 71(JUL 19 08:05) 84(JUL 19:) Resp Rate 20(JUL 19:) 20(JUL 19:) H 24(JUL 19:) SBP 97(JUL 19:) 97(JUL 19:19) 112(JUL 19 03:29) DBP 63(JUL 19:) 63(JUL 19:19) 69(JUL 19 03:29) Physical Exam General: No acute distress. Appears older than stated age. Alert and Appropriate Skin: No rash. Warm, Dry, Intact HEENT: Head is normocephalic and atraumatic. No lesions. Pupils equal in size. Extraocular movements within normal limits. Nose: No septal deviation. Mouth: Oropharynx mucosa is without lesion. Neck: Supple. No lymphadenopathy, thyromegaly noted. Lungs: Bilaterally very diminished breath sounds with expiratory wheezes worse on the left. Unlabored at rest. No conversational dyspnea. No use of accessory muscles. Cardiovascular: Heart is regular rhythm, S1S2, No extra-audible heart tones Abdomen: Abdomen is soft, nontender. Bowel sounds positive all four quadrants. Extremities: No clubbing, cyanosis or edema. Peripheral pulses palpable. No calf tenderness. Adequate peripheral circulation. Neurological: The patient is awake, oriented to time, people and place. Following simple commands, moving all extremities. No qualifying data available. Medications Medications (16) Active Scheduled: (8) amLODIPine 5 mg tablet 5 mg 1 tab(s), Oral, qDay cefTRIAXone IVP syringe 1 gram(s) 10 mL, IV Push (INT), qDay cholecalciferol 50 mcg tablet (Vit D3 2000 unit(s)) 50 mcg 1 tab(s), Oral, Daily furosemide 20 mg/2 mL vial 20 mg 2 mL, IV Push, BID heparin 5,000 units/mL (1 mL) vial 5,000 unit(s) 1 mL, Subcutaneous, q8h ipratropium 0.02% (0.5mg/2.5mL) UD 0.5 mg 2.5 mL, Inhalation, QIDRT methylPREDNISolone succ 125mg (62.5mg/1mL) after dilution 60 mg 0.96 mL, IV Push, q8h sacubitril-valsartan 24-26 mg oral tablet 1 tab(s), Oral, BID Continuous: (0) PRN: (8) acetaminophen 325 mg Tablet 650 mg 2 tab(s), Oral, q4h acetaminophen-HYDROcodone 325-5 mg tablet 1 tab(s), Oral, q4h acetaminophen-HYDROcodone 325-5 mg tablet 2 tab(s), Oral, q4h albuterol - ipratropium 2.5 mg-0.5 mg/3 mL Inhal Nahomy UD 3 mL, Inhalation, q4hRT melatonin 3 mg tablet 3 mg 1 tab(s), Oral, qHS melatonin 3 mg tablet 3 mg 1 tab(s), Oral, qHS ondansetron 2 mg/ 1 mL 2 mL INJ 4 mg 2 mL, IV Push, q4h polyethylene glycol 3350 - UD packet 17 gram(s) 15 mL, Oral, qDay Lab Results 07/19 05:25 WBC: 4.9 Hgb: 16.1 H Hct: 51.0 H Platelet: 233 Neutrophil %: 91.1 H Glucose Level: 145 H Sodium Level: 133 L Potassium Level: 5.8 H BUN: 20.0 Creatinine Lvl (s): 0.78 EKG No qualifying data available. Assessment/Plan 1. Hypercapnic respiratory failure 2. COPD exacerbation 3. (HFpEF) heart failure with preserved ejection fraction 4. Acute hypoxemic respiratory failure 5. Pneumonia 6. Polycythemia 7. Tobacco abuse 8. Metabolic encephalopathy Acute on chronic hypercapnic respiratory failure/ COPD is in acute exacerbation. Patient's breathing is improved since admission but not at baseline. Patient continue to require supplemental oxygen -Will obtain venous blood gas off BiPAP. Patient continues to mentate appropriately. Discussed withrespiratory therapy and nursing. - Will continue to provide supportive care with O2, bronchodilators scheduled and as needed to maintain O2 saturation greater or equal to 88%, continue home medications. - Acapella q4 hour while awake. -Patient is NOT on oxygen at home. -Continue IV Solu-Medrol 60 mg every 8 hours -Mucinex 1200mg BID Hyperkalemia- hemolyzed. Continue lasix 20mg IVP today. We will suspend Entresto today. History of hypertension- currently patient is slightly hypotension. Hold Norvasc at this time. Continue to monitor. Patient is asymptomatic. HFpEF-patient is near euvolemic. Continue IV diuresis. Repeat BMP in AM. -BNP 96708 on admission -Echocardiogram from May 07, 2021 reviewed. Pneumonia-continue IV ceftriaxone and azithromycin. Will check for atypicals. -ID panel by PCR negative I did extensively personal financial counselor the patient on smoking cessation. Continue to encourage smoking cessation. Patient has tried to quit multiple times without success. End of life discussion at bedside with patient and at bedside. In the event of a cardiopulmonary arrest he would like us to proceed with all heroic measures including, but not limited to CPR,defibrillation, and mechanical ventilation (FULL CODE). Plan of care discussed in depth with patient and Manuel at bedside. All questions answered. Patient verbalized understanding is agreeable to plan of care. Discussed with my collaborating physician Dr. Ruchi Ambrocio This dictation was performed using voice recognition software and may include grammatical and/or spelling errors. Orders: Diet Order Digitally Signed by CATRACHITA HOLGUIN on 07/19/2022 02:01 PM Digitally Signed by CATRACHITA HOLGUIN on 07/19/2022 02:[address] [id number] Note Date of Service 07/19/22 Chief Complaint Shortness of breath Subjective Patient is a 66-year-old female with a past medical history significant for COPD, HFpEF, polycythemia, ongoing tobacco abuse and hypertension. Patient originally presented to [facility] emergency department with complaints of increased shortness of breath, cough, muscle aches and confusion. Patient states on Wednesday she began having a dry nonproductive cough. Patient states she often has flares at home but is treated with prednisone antibiotics and Mucinex and symptoms often improve. Patient did not see her primary physician. Symptoms kept worsening. Patient complains of severe fatigue.Patient then presented to [facility] emergency department for further evaluation. The emergency de partment patient was found to be hypoxic and in uncompensated hypercapnic respiratory failure. Patient was placed on BiPAP. CTA was completed showing no evidence of pulmonary embolism, Bronchial wallthickening with areas of bronchial lumen opacification, which could suggest acute bronchitis or sequelae of aspiration. Scattered areas of atelectasis, likely related. Scattered tree-in-bud nodularities throughout the lungs bilaterally, which can be seen in small airway disease of infectious or inflammatory etiology. Patient was then transferred to [facility] for further evaluation. Patient states she does not see a threading machine operator as outpatient. Patient smokes 1 pack/day for many years. Patient denies any home oxygen use. Patient complains of bilateral lower extremity edema beginning several months ago. Per patient her primary care physician felt this was due to her amlodipine. Patient did reduce her amlodipine from 10 mg to 5 mg but then increased amlodipine to10 mg on her own due to elevated blood pressures. Patient resting in bed, Manuel is at bedside. Patient is alert and oriented to time place andsituation. She answers all questions appropriately. Patient states that shortness of breath is significantly improved. Patient states she feels that her respiratory status is at baseline. Patient complains of an occasional dry nonproductive cough. Patient states that lower extremity edema is significantly improved. Patient's states you can even see her ankles because she was so swollen.Patient denies shortness of breath, chest pain, palpitations, dizziness, blurred vision, difficultyspeaking, nausea, vomiting, diarrhea, constipation, urinary symptoms, night sweats, fever and chills. Hungry. Patient ate her lunch without difficulty. No evidence of aspiration during this exam. Objective Vitals and Measurements T: 36.4 C (Oral) TMIN: 36.4 C (Oral) TMAX: 36.8 C (Oral) HR: 74 RR: 24 BP: 103/65 SpO2: 99% Intake and Output 7AM Yesterday to 7AM Today Intake and Output (Last 24 hours) Intake Output Total Summary Total Intake 0.00 Total Output 0.00 Fluid Balance 0.00 Physical Exam Vitals Signs(Last 24 hrs)__ Last Charted Minimum Maximum Temp 36.8(JUL 19:) 36.8(JUL 19:) 36.8(JUL 19 03:29) Heart Rate 84(JUL 19:) 71(JUL 19 08:05) 84(JUL 19:) Resp Rate 20(JUL 19:) 20(JUL 19:) H 24(JUL 19 03:29) SBP 97(JUL 19:) 97(JUL 19:) 112(JUL 19:) DBP 63(JUL 19:) 63(JUL 19:) 69(JUL 19 03:29) Physical Exam General: No acute distress. Appears older than stated age. Alert and Appropriate Skin: No rash. Warm, Dry, Intact HEENT: Head is normocephalic and atraumatic. No lesions. Pupils equal in size. Extraocular movements within normal limits. Nose: No septal deviation. Mouth: Oropharynx mucosa is without lesion. Neck: Supple. No lymphadenopathy, thyromegaly noted. Lungs: Bilaterally very diminished breath sounds with expiratory wheezes worse on the left. Unlabored at rest. No conversational dyspnea. No use of accessory muscles. Cardiovascular: Heart is regular rhythm, S1S2, No extra-audible heart tones Abdomen: Abdomen is soft, nontender. Bowel sounds positive all four quadrants. Extremities: No clubbing, cyanosis or edema. Peripheral pulses palpable. No calf tenderness. Adequate peripheral circulation. Neurological: The patient is awake, oriented to time, people and place. Following simple commands, moving all extremities. No qualifying data available. Medications Medications (16) Active Scheduled: (8) amLODIPine 5 mg tablet 5 mg 1 tab(s), Oral, qDay cefTRIAXone IVP syringe 1 gram(s) 10 mL, IV Push (INT), qDay cholecalciferol 50 mcg tablet (Vit D3 2000 unit(s)) 50 mcg 1 tab(s), Oral, Daily furosemide 20 mg/2 mL vial 20 mg 2 mL, IV Push, BID heparin 5,000 units/mL (1 mL) vial 5,000 unit(s) 1 mL, Subcutaneous, q8h ipratropium 0.02% (0.5mg/2.5mL) UD 0.5 mg 2.5 mL, Inhalation, QIDRT methylPREDNISolone succ 125mg (62.5mg/1mL) after dilution 60 mg 0.96 mL, IV Push, q8h sacubitril-valsartan 24-26 mg oral tablet 1 tab(s), Oral, BID Continuous: (0) PRN: (8) acetaminophen 325 mg Tablet 650 mg 2 tab(s), Oral, q4h acetaminophen-HYDROcodone 325-5 mg tablet 1 tab(s), Oral, q4h acetaminophen-HYDROcodone 325-5 mg tablet 2 tab(s), Oral, q4h albuterol - ipratropium 2.5 mg-0.5 mg/3 mL Inhal Nahomy UD 3 mL, Inhalation, q4hRT melatonin 3 mg tablet 3 mg 1 tab(s), Oral, qHS melatonin 3 mg tablet 3 mg 1 tab(s), Oral, qHS ondansetron 2 mg/ 1 mL 2 mL INJ 4 mg 2 mL, IV Push, q4h polyethylene glycol 3350 - UD packet 17 gram(s) 15 mL, Oral, qDay Lab Results 07/19 05:25 WBC: 4.9 Hgb: 16.1 H Hct: 51.0 H Platelet: 233 Neutrophil %: 91.1 H Glucose Level: 145 H Sodium Level: 133 L Potassium Level: 5.8 H BUN: 20.0 Creatinine Lvl (s): 0.78 EKG No qualifying data available. Assessment/Plan 1. Hypercapnic respiratory failure 2. COPD exacerbation 3. (HFpEF) heart failure with preserved ejection fraction 4. Acute hypoxemic respiratory failure 5. Pneumonia 6. Polycythemia 7. Tobacco abuse 8. Metabolic encephalopathy Acute on chronic hypercapnic respiratory failure/ COPD is in acute exacerbation. Patient's breathing is improved since admission but not at baseline. Patient continue to require supplemental oxygen -Will obtain venous blood gas off BiPAP. Patient continues to mentate appropriately. Discussed withrespiratory therapy and nursing. - Will continue to provide supportive care with O2, bronchodilators scheduled and as needed to maintain O2 saturation greater or equal to 88%, continue home medications. - Acapella q4 hour while awake. -Patient is NOT on oxygen at home. -Continue IV Solu-Medrol 60 mg every 8 hours -Mucinex 1200mg BID Hyperkalemia- hemolyzed. Continue lasix 20mg IVP today. We will suspend Entresto today. History of hypertension- currently patient is slightly hypotension. Hold Norvasc at this time. Continue to monitor. Patient is asymptomatic. HFpEF-patient is near euvolemic. Continue IV diuresis. Repeat BMP in AM. -BNP 27646 on admission -Echocardiogram from May 07, 2021 reviewed. Pneumonia-continue IV ceftriaxone and azithromycin. Will check for atypicals. -ID panel by PCR negative I did extensively personal financial counselor the patient on smoking cessation. Continue to encourage smoking cessation. Patient has tried to quit multiple times without success. End of life discussion at bedside with patient and at bedside. In the event of a cardiopulmonary arrest he would like us to proceed with all heroic measures including, but not limited to CPR,defibrillation, and mechanical ventilation (FULL CODE). Plan of care discussed in depth with patient and Manuel at bedside. All questions answered. Patient verbalized understanding is agreeable to plan of care. Discussed with my collaborating physician Dr. Ruchi Ambrocio This dictation was performed using voice recognition software and may include grammatical and/or spelling errors. Orders: Diet Order Digitally Signed by CATRACHITA HOLGUIN APRN-GONZALEZ on 07/19/2022 02:01 PM Digitally Signed by CATRACHITA HOLGUIN APRN-GONZALEZ on 07/19/2022 02:[address] [id number] Evaluation + Plan noteExtracted from: Title:History and Physical Author:RAMSES MARTINEZ Date:07/19/22 66-year-old female with a hi story of COPD is presenting with acute respiratory distress likely secondary to combination of pneumonia, COPD exacerbation and fluid overload. COPD exacerbation pulse steroids, BiPAP, repeat ABG, will ask RT to adjust BiPAP if there is no improvement will discuss with down filler Pneumonia we will check a full RVP, strep Legionella and mycoplasma and start broad-spectrum antibiotics vancomycin and Zosyn, droplet precautions until RVP returns Acute diastolic heart failure with an elevated BNP of 10,000 and crackles bilaterally at the bases Lasix 20 IV twice daily Acute respiratory distress second to above Altered mental status unclear what her baseline is but she appears pleasantly confused suspected second to her CO2 retention/respiratory distress Hypertension stable, hold hydrochlorothiazide as we are giving Lasix 20 IV twice daily Current smoker nicotine patch Polycythemia may be secondary to chronic COPD Hyponatremia followed closely DVT prophylaxis Heparin subcu Full code Future Appointments Appointment Date:09/04/2022 09:00:00 AM Scheduled Provider: Location:[facility] Appointment Type:MA Mammogram Screening Bilateral w/ Carter Appointment Date:12/10/2022 07:45:00 AM Scheduled Provider:ELIAZAR BARRIOS DO Location:[facility] Appointment Type: OV Future Scheduled Tests Laboratory* Thyroid Stimulating Hormone 12/10/22 * Complete Blood Count 12/10/22 * Vitamin D Level 12/10/22 * Complete Metabolic Panel 12/10/22 Radiology* MA Mammo Screening Bilateral w/ Carter 09/04/22 [facility] 11-13-2022 Note Date of Service 07/19/22 Chief Complaint Shortness of breath Subjective Patient is a 66-year-old female with a past medical history significant for COPD, HFpEF, polycythemia, ongoing tobacco abuse and hypertension. Patient originally presented to [facility] emergency department with complaints of increased shortness of breath, cough, muscle aches and confusion. Patient states on Wednesday she began having a dry nonproductive cough. Patient states she often has flares at home but is treated with prednisone antibiotics and Mucinex and symptoms often improve. Patient did not see her primary physician. Symptoms kept worsening. Patient complains of severe fatigue.Patient then presented to [facility] emergency department for further evaluation. The emergency de partment patient was found to be hypoxic and in uncompensated hypercapnic respiratory failure. Patient was placed on BiPAP. CTA was completed showing no evidence of pulmonary embolism, Bronchial wallthickening with areas of bronchial lumen opacification, which could suggest acute bronchitis or sequelae of aspiration. Scattered areas of atelectasis, likely related. Scattered tree-in-bud nodularities throughout the lungs bilaterally, which can be seen in small airway disease of infectious or inflammatory etiology. Patient was then transferred to [facility] for further evaluation. Patient states she does not see a threading machine operator as outpatient. Patient smokes 1 pack/day for many years. Patient denies any home oxygen use. Patient complains of bilateral lower extremity edema beginning several months ago. Per patient her primary care physician felt this was due to her amlodipine. Patient did reduce her amlodipine from 10 mg to 5 mg but then increased amlodipine to10 mg on her owndue to elevated blood pressures. Patient resting in bed, Manuel is at bedside. Patient is alert and oriented to time place andsituation. She answers all questions appropriately. Patient states that shortness of breath is significantly improved. Patient states she feels that her respiratory status is at baseline. Patient complains of an occasional dry nonproductive cough. Patient states that lower extremity edema is significantly improved. Patient's states you can even see her ankles because she was so swollen.Patient denies shortness of breath, chest pain, palpitations, dizziness, blurred vision, difficultyspeaking, nausea, vomiting, diarrhea, constipation, urinary symptoms, night sweats, fever and chills. Hungry. Patient ate her lunch without difficulty. No evidence of aspiration during this exam. Objective Vitals and Measurements T: 36.4 C (Oral) TMIN: 36.4 C (Oral) TMAX: 36.8 C (Oral) HR: 74 RR: 24 BP: 103/65 SpO2: 99% Intake and Output 7AM Yesterday to 7AM Today Intake and Output (Last 24 hours) Intake Output Total Summary Total Intake 0.00 Total Output 0.00 Fluid Balance 0.00 Physical Exam Vitals Signs(Last 24 hrs)__ Last Charted Minimum Maximum Temp 36.8(JUL 19:) 36.8(JUL 19:) 36.8(JUL 19 03:29) Heart Rate 84(JUL 19:) 71(JUL 19 08:05) 84(JUL 19:) Resp Rate 20(JUL 19:) 20(JUL 19:) H 24(JUL 19 03:29) SBP 97(JUL 19:19) 97(NOV 13 11:19) 112(JUL 19 03:29) DBP 63(JUL 19:19) 63(JUL 19:19) 69(JUL 19 03:29) Physical Exam General: No acute distress. Appears older than stated age. Alert and Appropriate Skin: No rash. Warm, Dry, Intact HEENT: Head is normocephalic and atraumatic. No lesions. Pupils equal in size. Extraocular movements within normal limits. Nose: No septal deviation. Mouth: Oropharynx mucosa is without lesion. Neck: Supple. No lymphadenopathy, thyromegaly noted. Lungs: Bilaterally very diminished breath sounds with expiratory wheezes worse on the left. Unlabored at rest. No conversational dyspnea. No use of accessory muscles. Cardiovascular: Heart is regular rhythm, S1S2, No extra-audible heart tones Abdomen: Abdomen is soft, nontender. Bowel sounds positive all four quadrants. Extremities: No clubbing, cyanosis or edema. Peripheral pulses palpable. No calf tenderness. Adequate peripheral circulation. Neurological: The patient is awake, oriented to time, people and place. Following simple commands, moving all extremities. No qualifying data available. Medications Medications (16) Active Scheduled: (8) amLODIPine 5 mg tablet 5 mg 1 tab(s), Oral, qDay cefTRIAXone IVP syringe 1 gram(s) 10 mL, IV Push (INT), qDay cholecalciferol 50 mcg tablet (Vit D3 2000 unit(s)) 50 mcg 1 tab(s), Oral, Daily furosemide 20 mg/2 mL vial 20 mg 2 mL, IV Push, BID heparin 5,000 units/mL (1 mL) vial 5,000 unit(s) 1 mL, Subcutaneous, q8h ipratropium 0.02% (0.5mg/2.5mL) UD 0.5 mg 2.5 mL, Inhalation, QIDRT methylPREDNISolone succ 125mg (62.5mg/1mL) after dilution 60 mg 0.96 mL, IV Push, q8h sacubitril-valsartan 24-26 mg oral tablet 1 tab(s), Oral, BID Continuous: (0) PRN: (8) acetaminophen 325 mg Tablet 650 mg 2 tab(s), Oral, q4h acetaminophen-HYDROcodone 325-5 mg tablet 1 tab(s), Oral, q4h acetaminophen-HYDROcodone 325-5 mg tablet 2 tab(s), Oral, q4h albuterol - ipratropium 2.5 mg-0.5 mg/3 mL Inhal Nahomy UD 3 mL, Inhalation, q4hRT melatonin 3 mg tablet 3 mg 1 tab(s), Oral, qHS melatonin 3 mg tablet 3 mg 1 tab(s), Oral, qHS ondansetron 2 mg/ 1 mL 2 mL INJ 4 mg 2 mL, IV Push, q4h polyethylene glycol 3350 - UD packet 17 gram(s) 15 mL, Oral, qDay Lab Results 07/19 05:25 WBC: 4.9 Hgb: 16.1 H Hct: 51.0 H Platelet: 233 Neutrophil %: 91.1 H Glucose Level: 145 H Sodium Level: 133 L Potassium Level: 5.8 H BUN: 20.0 Creatinine Lvl (s): 0.78 EKG No qualifying data available. Assessment/Plan 1. Hypercapnic respiratory failure 2. COPD exacerbation 3. (HFpEF) heart failure with preserved ejection fraction 4. Acute hypoxemic respiratory failure 5. Pneumonia 6. Polycythemia 7. Tobacco abuse 8. Metabolic encephalopathy Acute on chronic hypercapnic respiratory failure/ COPD is in acute exacerbation. Patient's breathing is improved since admission but not at baseline. Patient continue to require supplemental oxygen -Will obtain venous blood gas off BiPAP. Patient continues to mentate appropriately. Discussed withrespiratory therapy and nursing. - Will continue to provide supportive care with O2, bronchodilators scheduled and as needed to maintain O2 saturation greater or equal to 88%, continue home medications. - Acapella q4 hour while awake. -Patient is NOT on oxygen at home. -Continue IV Solu-Medrol 60 mg every 8 hours -Mucinex 1200mg BID Hyperkalemia- hemolyzed. Continue lasix 20mg IVP today. We will suspend Entresto today. History of hypertension- currently patient is slightly hypotension. Hold Norvasc at this time. Continue to monitor. Patient is asymptomatic. HFpEF-patient is near euvolemic. Continue IV diuresis. Repeat BMP in AM. -BNP 95863 on admission -Echocardiogram from May 07, 2021 reviewed. Pneumonia-continue IV ceftriaxone and azithromycin. Will check for atypicals. -ID panel by PCR negative I did extensively personal financial counselor the patient on smoking cessation. Continue to encourage smoking cessation. Patient has tried to quit multiple times without success. End of life discussion at bedside with patient and at bedside. In the event of a cardiopulmonary arrest he would like us to proceed with all heroic measures including, but not limited to CPR,defibrillation, and mechanical ventilation (FULL CODE). Plan of care discussed in depth with patient and Manuel at bedside. All questions answered. Patient verbalized understanding is agreeable to plan of care. Discussed with my collaborating physician Dr. Ruchi Ambrocio This dictation was performed using voice recognition software and may include grammatical and/or spelling errors. Orders: Diet Order Digitally Signed by CATRACHITA HOLGUIN APRN-GONZALEZ on 07/19/2022 02:01 PM Digitally Signed by CATRACHITA HOLGUIN on 07/19/2022 02:[address] [id number] HCoV 229E RNA RICH+non-probe Ql (Nph)Not Detected *NA* (07/19/22 4:43 AM)[facility] [employer]Sero [id number] History and physical note Date of Service 07/19/2022 Chief Complaint Shortness of breath History of Present Illness 66-year-old female with a history of COPD diastolic heart failure, polycythemia and hypertension who is a current smoker presents with shortness of breath. Patient began having productive cough 5 days ago associated with generalized muscle aches and shortness of breath. Her shortness of breath has progressed in severity so she went to the emergency department at [facility]. In the emergency department She was tachypneic and hypoxic despite being placed on [address] PE No evidence of pulmonary embolism. Bronchial wall thickening with areas of bronchial lumen opacification, which could suggest acute bronchitis or sequelae of aspiration. Scattered areas of atelectasis, likely related. Scattered tree-in-bud nodularities throughout the lungs bilaterally, which can be seen in small airway disease of infectious or inflammatory etiology. Emphysema. She was placed on BiPAP BNP elevated at 10,000 COVID/flu/RSV negative BMP significant for hyponatremia 132 CBC WBC reassuring at 8, H&H polycythemic at 17/54, platelets 238 pH after report was called prior to transport significant for 7.2 with an elevated CO2 of 78 Upon arrival to the floor patient seen pleasantly confused and a family member was present, she wasnot currently on the BiPAP BiPAP was restarted Rapid response was called to adjust BiPAP settings given recent pH on ABG and elevated CO2 If repeat ABG is not improved after placing on BiPAP and adjusting settings will discuss with down filler. Review of Systems Patient is pleasantly confused versus complete review of systems were not done Physical Exam Vitals and Measurements T: 36.8 C (Oral) HR: 24(Monitored) RR: 24 BP: 112/69 SpO2: 89% No qualifying data available. GENERAL: No acute distress ASSISTIVE DEVICES: None PSYCHIATRIC: appropriate HEENT moist mucous membranes extraocular muscles intact CARDIOVASCULAR: Regular rate, regular rhythm, no murmurs noted. Notrace lower extremity pitting edema. No lymphedema. Dorsalis Pedis pulses+2/4 blaterally . Posterior Tibialis pulses+2/4 bilaterally . RESPIRATORY: Moderate to poor air entry scattered and story wheezing crackles bilaterally at the bases bilaterally ABDOMEN soft, no guarding, nontender, nondistended, positive bowel sounds, NEURO: no focal deficits DERM: no acute rash Lab Results No 36 Hour Lab Data Assessment/Plan 66-year-old female with a history of COPD is presenting with acute respiratory distress likely secondary to combination of pneumonia, COPD exacerbation and fluid overload. COPD exacerbation pulse steroids, BiPAP, repeat ABG, will ask RT to adjust BiPAP if there is no improvement will discuss with down filler Pneumonia we will check a full RVP, strep Legionella and mycoplasma and start broad-spectrum antibiotics vancomycin and Zosyn, droplet precautions until RVP returns Acute diastolic heart failure with an elevated BNP of 10,000 and crackles bilaterally at the bases Lasix 20 IV twice daily Acute respiratory distress second to above Altered mental status unclear what her baseline is but she appears pleasantly confused suspected second to her CO2 retention/respiratory distress Hypertension stable, hold hydrochlorothiazide as we are giving Lasix 20 IV twice daily Current smoker nicotine patch Polycythemia may be secondary to chronic COPD Hyponatremia followed closely DVT prophylaxis Heparin subcu Full code Problem List/Past Medical History Ongoing Actinic keratoses Arthritis Atrophic kidney Basal cell carcinoma Cervical spinal stenosis Eczema Emphysema lung Falls Foot drop Herpes zoster HTN (hypertension) Lung nodule Numbness of limbs Osteoporosis Polycythemia Scoliosis Seasonal allergy Squamous cell carcinoma of skin Stool incontinence Unsteady gait Vertigo Vitamin D deficiency Historical Smoker Procedure/Surgical History Breast augmentation: 1993 Tubal ligation Colonoscopy Medications Home Medications (8) Active acetaminophen 500 mg oral tablet 500 mg = 1 tab(s), PRN, Oral, q4h amLODIPine 5 mg oral tablet 5 mg = 1 tab(s), Oral, qDay Entresto 24 mg-26 mg oral tablet 1 tab(s), Oral, BID hydroCHLOROthiazide 12.5 mg oral capsule 12.5 mg = 1 cap(s), Oral, qDay Incruse Ellipta 62.5 mcg/inh inhalation powder 1 puff(s), Inhalation, qDay ProAir HFA MDI (90 mcg/inh) inhalation aerosol See Instructions Prolia 60 mg/mL subcutaneous solution 60 mg = 1 mL, Subcutaneous, q6mo Vitamin D3 50 mcg (2000 intl units) oral capsule 2,000 unit(s) = 1 cap(s), Oral, Daily Allergies NKA Social History Smoking Status - 06/13/2014 Current every day smoker Alcohol Use: Current., 07/28/2019 Nutrition/Health Caffeine intake amount: coffee; 4 servings/day., 07/28/2019 Substance Abuse Use: Never., 07/28/2019 Tobacco Nicotine Use: Former smoker, quit more than 30 days ago., 07/28/2019 Family History Cancer: Father. Diabetes mellitus type 2: Brother. Heart disease: Sister and Brother. Immunizations pneumococcal 23-valent vaccine(Pneumovax: 0.5 mL (09/02/21) SARS-CoV-2 (COVID-19) mRNA-1273 vaccine: 0.25 unknown unit (07/11/21) SARS-CoV-2 (COVID-19) mRNA-1273 vaccine: 0.5 unknown unit (12/06/20) SARS-CoV-2 (COVID-19) mRNA-1273 vaccine: 0.5 unknown unit (11/08/20) tetanus/diphth/pertuss (Tdap) adult/adol: 0.5 unknown unit (09/27/17) Code Status No qualifying data available. Digitally Signed by RAMSES MARTINEZ MD on 07/19/2022 04:21 AM Digitally Signed by RAMSES MARTINEZ MD on 07/19/2022 04:[address] [id number] Note ORIGINAL EXAMINATION: CT OF THE CHEST WITH CONTRAST 05/04/2022 9:45 am TECHNIQUE: CT of the chest was performed with the administration of intravenous contrast. Multiplanar reformatted images are provided for review. Automated exposure control, iterative reconstruction, and/or weight based adjustment of the mA/kV was utilized to reduce the radiation dose to as low as reasonably achievable. COMPARISON: Chest x-ray May 07, 2021 HISTORY: ORDERING SYSTEM PROVIDED HISTORY: Reason for Exam: f/u lung nodule FINDINGS: Minor degenerative changes are noted in the spine. Mild emphysema is present and there are scattered areas of pulmonary and pleural scarring seen bilaterally. There is a 5 mm part solid and part ground-glass nodule at the posterior margin of the right upper lobe. At the posterolateral aspect of the right lower lobe there is a 3 mm juxtapleural nodule. A small area of chronic volume loss is present at the lingula. No focal area of consolidation is visible and there is no pleural fluid present. No mediastinal adenopathy is visible. Incidentally, there is a small left kidney with delayed contrast excretion. This is partially visible and of uncertain significance. No other contributory finding. IMPRESSION: 1. Mild emphysema. No superimposed acute finding. 2. Scattered small nodules not requiring follow-up. See formal recommendations below. 3. Small/atrophic left kidney with delayed enhancement. This might indicate renal artery stenosis, and further clinical assessment should proceed. RECOMMENDATIONS: Multiple pulmonary nodules. Most severe: 5 mm right ground-glass pulmonary nodule within the upper lobe. No routine follow-up imaging is recommended per Fleischner Society Guidelines. These guidelines do not apply to immunocompromised patients and patients with cancer. Follow up in patients with significant comorbidities as clinically warranted. For lung cancer screening, adhere to Lung-RADS guidelines. Reference: Radiology. 2017; 284(1):228-43. Interpreted by: Catarino Branch MD Preliminary Report By: Catarino Branch MD Electronically signed By Catarino Branch MD Dictated Date: 05/04/2022 10:20:00 AM Prelim Date: 05/04/2022 10:24:56 AM Sign Date: 05/04/2022 10:24:56 AM Ordering Provider: ELIAZAR BARRIOS [facility]08-29-2022 Note ORIGINAL EXAMINATION: CT OF THE CHEST WITH CONTRAST 05/04/2022 9:45 am TECHNIQUE: CT of the chest was performed with the administration of intravenous contrast. Multiplanar reformatted images are provided for review. Automated exposure control, iterative reconstruction, and/or weight based adjustment of the mA/kV was utilized to reduce the radiation dose to as low as reasonably achievable. COMPARISON: Chest x-ray May 07, 2021 HISTORY: ORDERING SYSTEM PROVIDED HISTORY: Reason for Exam: f/u lung nodule FINDINGS: Minor degenerative changes are noted in the spine. Mild emphysema is present and there are scattered areas of pulmonary and pleural scarring seen bilaterally. There is a 5 mm part solid and part ground-glass nodule at the posterior margin of the right upper lobe. At the posterolateral aspect of the right lower lobe there is a 3 mm juxtapleural nodule. A small area of chronic volume loss is present at the lingula. No focal area of consolidation is visible and there is no pleural fluid present. No mediastinal adenopathy is visible. Incidentally, there is a small left kidney with delayed contrast excretion. This is partially visible and of uncertain significance. No other contributory finding. IMPRESSION: 1. Mild emphysema. No superimposed acute finding. 2. Scattered small nodules not requiring follow-up. See formal recommendations below. 3. Small/atrophic left kidney with delayed enhancement. This might indicate renal artery stenosis, and further clinical assessment should proceed. RECOMMENDATIONS: Multiple pulmonary nodules. Most severe: 5 mm right ground-glass pulmonary nodule within the upper lobe. No routine follow-up imaging is recommended per Fleischner Society Guidelines. These guidelines do not apply to immunocompromised patients and patients with cancer. Follow up in patients with significant comorbidities as clinically warranted. For lung cancer screening, adhere to Lung-RADS guidelines. Reference: Radiology. 2017; 284(1):228-43. Interpreted by: Catarino Branch MD Preliminary Report By: Catarino Branch MD Electronically signed By Catarino Branch MD Dictated Date: 05/04/2022 10:20:00 AM Prelim Date: 05/04/2022 10:24:56 AM Sign Date: 05/04/2022 10:24:56 AM Ordering Provider[facility] Future Appointments Appointment Date:09/09/2021 09:00:00 AM Scheduled Provider: Location:[facility] Appointment Type:BD Bone Density DEXA Axial Skeleton Appointment Date:12/02/2021 08:40:00 AM Scheduled Provider:ELIAZAR BARRIOS DO Location:[facility] Appointment Type:PC OV Future Scheduled Tests Radiology* BD Bone Density DEXA Axial Skeleton 09/09/21 * XR Chest 2 Views (PA & Lateral) 04/22/21 * CT Low Dose Lung Cancer Screening (LDCT) 09/02/21 [facility] Evaluation + Plan note Future Appointments Appointment Date:12/02/2021 08:40:00 AM Scheduled Provider:ELIAZAR BARRIOS DO Location:[facility] Appointment Type:PC OV Future Scheduled Tests Radiology* XR Chest 2 Views (PA & Lateral) 04/22/21 * CT Low Dose Lung Cancer Screening (LDCT) 09/02/21 [facility] Evaluation + Plan note Future Appointments Appointment Date:12/04/2021 08:00:00 AM Scheduled Provider:ELIAZAR BARRIOS DO Location:[facility] Appointment Type: OV Future Scheduled Tests Radiology* XR Chest 2 Views (PA & Lateral) 04/22/21 [facility] Evaluation + Plan note Future Appointments Appointment Date:06/11/2022 08:00:00 AM Scheduled Provider:ELIAZAR BARRIOS DO Location:[facility] Appointment Type: OV Follow Up Future Scheduled Tests Radiology* XR Chest 2 Views (PA & Lateral) 04/22/21 [facility] Evaluation + Plan note Future Appointments Appointment Date:06/11/2022 08:00:00 AM Scheduled Provider:ELIAZAR BARRIOS DO Location:[facility] Appointment Type: OV Follow Up [facility] Evaluation + Plan note Future Appointments Appointment Date:07/28/2022 01:00:00 PM Scheduled Provider:ELIAZAR BARRIOS DO Location:[facility] Appointment Type:[facility] Hospital Follow-Up Appointment Date:09/04/2022 09:00:00 AM Scheduled Provider: Location:[facility] Appointment Type:MA Mammogram Screening Bilateral w/ Carter Appointment Date:12/10/2022 07:45:00 AM Scheduled Provider:ELIAZAR BARRIOS DO Location:[facility] Appointment Type:PC OV Future Scheduled Tests Laboratory* Thyroid Stimulating Hormone 12/10/22 * Complete Blood Count 12/10/22 * Vitamin D Level 12/10/22 * Complete Metabolic Panel 12/10/22 Radiology* MA Mammo Screening Bilateral w/ Carter 09/04/22 [facility] Evaluation + Plan note Future Appointments Appointment Date:09/02/2022 10:00:00 AM Scheduled Provider: Location:[facility] Appointment Type:[facility] - Renal Artery US/Doppler Complet Appointment Date:09/02/2022 11:00:00 AM Scheduled Provider: Location:[facility] Appointment Type:US Renal Appointment Date:09/04/2022 09:00:00 AM Scheduled Provider: Location:[facility] Appointment Type:MA Mammogram Screening Bilateral w/ Carter Appointment Date:10/12/2022 09:00:00 AM Scheduled Provider:STEPH ESTEVES Location:[facility] Appointment Type:CV OV Appointment Date:12/10/2022 07:45:00 AM Scheduled Provider:ELIAZAR BARRIOS DO Location:[facility] Appointment Type:PC OV Future Scheduled Tests Laboratory* Ferritin 07/28/22 * Iron Level 07/28/22 * Thyroid Stimulating Hormone 12/10/22 * A1C Hemoglobin 07/28/22 * Complete Blood Count 12/10/22 * Complete Blood Count 07/28/22 * Vitamin D Level 12/10/22 * Complete Metabolic Panel 12/10/22 * Complete Metabolic Panel 07/28/22 Radiology* MA Mammo Screening Bilateral w/ Carter 09/04/22 * US Renal 09/02/22 [facility] Evaluation + Plan note Future Appointments Appointment Date:09/04/2022 09:00:00 AM Scheduled Provider: Location:[facility] Appointment Type:MA Mammogram Screening Bilateral w/ Carter Appointment Date:10/12/2022 09:00:00 AM Scheduled Provider:STEPH ESTEVES Location:[facility] Appointment Type:CV OV Appointment Date:12/10/2022 07:45:00 AM Scheduled Provider:ELIAZAR BARRIOS DO Location:[facility] Appointment Type:PC OV Future Scheduled Tests Laboratory* Ferritin 07/28/22 * Iron Level 07/28/22 * Thyroid Stimulating Hormone 12/10/22 * A1C Hemoglobin 07/28/22 * Complete Blood Count 12/10/22 * Complete Blood Count 07/28/22 * Vitamin D Level 12/10/22 * Complete Metabolic Panel 12/10/22 * Complete Metabolic Panel 07/28/22 Radiology* MA Mammo Screening Bilateral w/ Carter 09/04/22 [facility] Evaluation + Plan note Future Appointments Appointment Date:10/12/2022 09:00:00 AM Scheduled Provider:STEPH ESTEVES Location:[facility] Appointment Type:CV OV Appointment Date:12/10/2022 07:45:00 AM Scheduled Provider:ELIAZAR BARRIOS DO Location:[facility] Appointment Type:PC OV Future Scheduled Tests Laboratory* Ferritin 07/28/22 * Iron Level 07/28/22 * Thyroid Stimulating Hormone 12/10/22 * A1C Hemoglobin 07/28/22 * Complete Blood Count 12/10/22 * Complete Blood Count 07/28/22 * Vitamin D Level 12/10/22 * Complete Metabolic Panel 12/10/22 * Complete Metabolic Panel 07/28/22 [facility] Evaluation + Plan note Future Appointments Appointment Date:12/10/2022 07:45:00 AM Scheduled Provider:ELIAZAR BARRIOS DO Location:[facility] Appointment Type:PC OV Appointment Date:04/21/2023 09:30:00 AM Scheduled Provider:STEPH ESTEVES Location:[facility] Appointment Type:CV OV Future Scheduled Tests Laboratory* Ferritin 07/28/22 * Iron Level 07/28/22 * Thyroid Stimulating Hormone 12/10/22 * A1C Hemoglobin 07/28/22 * Complete Blood Count 12/10/22 * Complete Blood Count 07/28/22 * Vitamin D Level 12/10/22 * Complete Metabolic Panel 12/10/22 * Complete Metabolic Panel 07/28/22 [facility] Evaluation + Plan note Future Appointments Appointment Date:04/21/2023 09:30:00 AM Scheduled Provider:STEPH ESTEVES Location:[facility] Appointment Type:CV OV Appointment Date:06/15/2023 10:00:00 AM Scheduled Provider:ELIAZAR BARRIOS DO Location:[facility] Appointment Type:PC Wellness Medicare Future Scheduled Tests Laboratory* Thyroid Stimulating Hormone 06/11/23 * Complete Blood Count 06/11/23 * Complete Blood Count 07/28/22 * Vitamin D Level 06/11/23 * Complete Metabolic Panel 06/11/23 * Complete Metabolic Panel 07/28/22 [facility] Evaluation + Plan note Future Appointments Appointment Date:08/05/2023 10:30:00 AM Scheduled Provider: Location:[facility] Appointment Type:ACC POC Established Patient Appointment Date:09/14/2023 10:30:00 AM Scheduled Provider:ELIAZAR BARRIOS DO Location:[facility] Appointment Type:PC OV Appointment Date:09/21/2023 09:30:00 AM Scheduled Provider:STEPH ESTEVES Location:[facility] Appointment Type:CV OV Future Scheduled Tests Laboratory* Thyroid Stimulating Hormone 09/15/23 * Thyroid Stimulating Hormone 06/11/23 * A1C Hemoglobin 09/15/23 * Complete Blood Count 09/15/23 * Complete Blood Count 06/11/23 * Complete Blood Count 07/28/22 * Lipid Profile 09/15/23 * Vitamin D Level 09/15/23 * Vitamin D Level 06/11/23 * Complete Metabolic Panel 09/15/23 * Complete Metabolic Panel 06/11/23 * Complete Metabolic Panel 07/28/22 [facility] Evaluation + Plan note Future Appointments Appointment Date:09/14/2023 10:30:00 AM Scheduled Provider:ELIAZAR BARRIOS DO Location:[facility] Appointment Type:PC OV Appointment Date:09/21/2023 09:30:00 AM Scheduled Provider:STEPH ESTEVES Location:[facility] Appointment Type:CV OV Appointment Date:09/30/2023 11:00:00 AM Scheduled Provider: Location:[facility] Appointment Type:ACC POC Established Patient Future Scheduled Tests Laboratory* Thyroid Stimulating Hormone 06/11/23 * Complete Blood Count 06/11/23 * Vitamin D Level 06/11/23 * Complete Metabolic Panel 06/11/23 [facility] Evaluation + Plan note Future Appointments Appointment Date:03/22/2024 01:30:00 PM Scheduled Provider:STEPH ESTEVES Location:[facility] Appointment Type:CV OV Appointment Date:03/23/2024 09:30:00 AM Scheduled Provider:ELIAZAR BARRIOS DO Location:[facility] Appointment Type:PC OV Future Scheduled Tests Laboratory* Thyroid Stimulating Hormone 03/23/24 * Thyroid Stimulating Hormone 06/11/23 * A1C Hemoglobin 03/23/24 * Complete Blood Count 03/23/24 * Complete Blood Count 06/11/23 * Lipid Profile 03/23/24 * Vitamin D Level 03/23/24 * Vitamin D Level 06/11/23 * Complete Metabolic Panel 03/23/24 * Complete Metabolic Panel 06/11/23 [facility] Evaluation + Plan note Future Appointments Appointment Date:04/17/2024 01:00:00 PM Scheduled Provider:STEPH ESTEVES Location:[facility] Appointment Type:CV OV Appointment Date:09/14/2024 10:00:00 AM Scheduled Provider:ELIAZAR BARRIOS DO Location:[facility] Appointment Type: OV Future Scheduled Tests Laboratory* Basic Metabolic Panel 03/15/24 * Thyroid Stimulating Hormone 03/23/24 * Thyroid Stimulating Hormone 06/11/23 * A1C Hemoglobin 03/23/24 * Complete Blood Count 03/23/24 * Complete Blood Count 06/11/23 * Lipid Profile 03/23/24 * Vitamin D Level 03/23/24 * Vitamin D Level 06/11/23 * Complete Metabolic Panel 03/23/24 * Complete Metabolic Panel 06/11/23 * N-Terminal proBNP 03/15/24 Radiology* MA Mammo Screening Bilateral w/ Carter 03/23/24 * BD Bone Density DEXA Axial Skeleton 03/23/24 [facility] Evaluation + Plan note Future Appointments Appointment Date:04/17/2024 01:00:00 PM Scheduled Provider:STEPH ESTEVES Location:[facility] Appointment Type:CV OV Appointment Date:04/21/2024 11:00:00 AM Scheduled Provider: Location:[facility] Appointment Type:BD Bone Density DEXA Axial Skeleton Appointment Date:04/21/2024 11:30:00 AM Scheduled Provider: Location:[facility] Appointment Type:MA Mammogram Screening Bilateral w/ Carter Appointment Date:09/14/2024 10:00:00 AM Scheduled Provider:ELIAZAR BARRIOS DO Location:[facility] Appointment Type:PC OV Future Scheduled Tests Laboratory* Thyroid Stimulating Hormone 03/23/24 * Thyroid Stimulating Hormone 06/11/23 * A1C Hemoglobin 03/23/24 * Complete Blood Count 03/23/24 * Complete Blood Count 06/11/23 * Lipid Profile 03/23/24 * Vitamin D Level 03/23/24 * Vitamin D Level 06/11/23 * Complete Metabolic Panel 03/23/24 * Complete Metabolic Panel 06/11/23 Radiology* MA Mammo Screening Bilateral w/ Carter 04/21/24 * BD Bone Density DEXA Axial Skeleton 04/21/24 [facility] Evaluation + Plan note Future Appointments Appointment Date:05/22/2024 01:00:00 PM Scheduled Provider:STEPH ESTEVES Location:[facility] Appointment Type:CV OV Appointment Date:09/14/2024 10:00:00 AM Scheduled Provider:ELIAZAR BARRIOS DO Location:[facility] Appointment Type:PC OV Future Scheduled Tests Laboratory* Basic Metabolic Panel 04/17/24 * Thyroid Stimulating Hormone 03/23/24 * Thyroid Stimulating Hormone 06/11/23 * A1C Hemoglobin 03/23/24 * Complete Blood Count 03/23/24 * Complete Blood Count 06/11/23 * Lipid Profile 03/23/24 * Vitamin D Level 03/23/24 * Vitamin D Level 06/11/23 * Complete Metabolic Panel 03/23/24 * Complete Metabolic Panel 06/11/23 [facility] Evaluation + Plan note Future Appointments Appointment Date:05/22/2024 01:00:00 PM Scheduled Provider:STEPH ESTEVES Location:[facility] Appointment Type:CV OV Appointment Date:09/14/2024 10:00:00 AM Scheduled Provider:ELIAZAR BARRIOS DO Location:[facility] Appointment Type:PC OV Future Scheduled Tests Laboratory* Thyroid Stimulating Hormone 03/23/24 * Thyroid Stimulating Hormone 06/11/23 * A1C Hemoglobin 03/23/24 * Complete Blood Count 03/23/24 * Complete Blood Count 06/11/23 * Lipid Profile 03/23/24 * Vitamin D Level 03/23/24 * Vitamin D Level 06/11/23 * Complete Metabolic Panel 03/23/24 * Complete Metabolic Panel 06/11/23 [facility] evaluation + Plan note Future Appointments Appointment Date:08/21/2024 10:30:00 AM Scheduled Provider:STEPH ESTEVES Location:[facility] Appointment Type:CV OV Appointment Date:09/14/2024 10:00:00 AM Scheduled Provider:ELIAZAR BARRIOS DO Location:[facility] Appointment Type:PC OV Future Scheduled Tests Laboratory* Basic Metabolic Panel 08/21/24 [facility] Evaluation + Plan note Future Appointments Appointment Date:10/23/2024 11:30:00 AM Scheduled Provider:STEPH ESTEVES Location:[facility] Appointment Type:CV OV Appointment Date:02/22/2025 10:30:00 AM Scheduled Provider:STEPH ESTEVES Location:[facility] Appointment Type:CV OV Appointment Date:03/15/2025 10:30:00 AM Scheduled Provider:ELIAZAR BARRIOS DO Location:[facility] Appointment Type:PC OV Future Scheduled Tests Laboratory* Basic Metabolic Panel 08/21/24 [facility] evaluation noteNo assessment information available [facility] Work Phone: evaluation note* Diagnosis Onset Date Resolution Status Chest pain acute Elevated brain natriuretic peptide (BNP) level acute Elevated troponin I level ac native Erythrocytosis acute Hyperglycemia acute Paroxysmal atrial fibrillation with RVR acute [facility] Work Phone: Evaluation note* Diagnosis Onset Date Resolution Status Angina pectoris acute Chest pain acute Elevated brain natriuretic peptide (BNP) level acute Elevated troponin I level ac native Erythrocytosis acute Hyperglycemia acute Nicotine dependence acute Paroxysmal atrial fibrillation acute Paroxysmal atrial fibrillation with RVR acute Hypertension chronic Severe chronic obstructive pulmonary disease chronic [facility] Work Phone: History and physical note Author Marixa Gama [facility] April 29, 2023 12:24am Note Date/Time April 28, 2023 11 :29pm [facility] Medical Records Department [address] [place] [address] H&P Exam - Hospitalist 04/28/232316 MR#: [id number] Acct: [id number] Name: JANENE VASQUEZ Rep #:[id number] : 1955 67 From: Marixa Gama DO PCP: Dr. Eliazar Barrios DO Status: ADM IN Location: [facility] [id number] HPI - General General Date of Admission: 04/28/23 Date of Service: 04/28/23 Chief Complaint: Chest Pain HPI Narrative JANENE VASQUEZ, is a 67 F who presented to the emergency department at [facility] on 04/29/2023 complaining of back pain in her mid back that radiated to her left shoulder and down her left arm. It started at about 730 this evening and the patient reported she had a headache with this. She also complained of some associated nausea which resolved. Denies any vomiting, diaphoresis or significant shortness of breath at the time however she is feeling more short of breath now. She has a strong family history of coronary disease having one of her brothers at 57 from coronary artery disease and both of her sisters having disease as well. She is the oldest. She still smokes. At the time of my evaluation she stated her headache and resolved and she was pain-free. On presentation she was noted to be in A-fib with RVR. She was recently diagnosed with A-fib back in January of this year and has been on Coumadin and beta-theodore. She states that she does not usually feel when she goes in and out of A-fib and when she came in last time she was just having anxiety. She is never experienced the pain she had this evening. It occurred while she was driving her car. In the emergency department she was given amiodarone bolus which actually converted her to normal sinus rhythm. Her bloodpressures were low on arrival likely related to her RVR and she was given 2 L IVbolus. Vital signs on presentation showed a temperature of 97.9, heart rate 142, blood pressure was 90/65, respiratory rate was 20 and oxygen saturation was not documented on room air however on 4 L nasal cannula she was 96%. CBC was unremarkable when compared to previous however she does have an erythrocytosis which appears to be chronic. INR was 3.3. Electrolytes were normal. Renal function was normal with a BUN of 11 and a serum creatinine of 0.97. Glucose was elevated at 167 and the patient does not have a documented history of diabetes. Her initial troponin was 12 with a repeat at 71. BNP was 736. Her initial EKG showed A-fib with RVR and a rate of [address] depression that was quite significant in V3 through V6. When I compared it to her previous EKG fromMay when she was in A-fib with RVR with a similar rate of 144 this depression was not present. She also had very slight elevation in aVR. Follow-up EKG after she had converted to normal sinus rhythm does not show any ST elevation ordepression. Chest x-ray is unremarkable for any acute findings however does show hyperinflation. [facility] Medical History (Updated 04/29/23 @ 00:[address] Marixa Gama, ) Acute bronchitis, unspecified Afib Chronic anticoagulation Degenerative disc disease History of emphysema Hypertension Osteoarthritis Tobacco abuse Home Medications albuterol sulfate 90 mcg/actuation aerosol inhaler (ProAir HFA) 1 puff inhalation Q4H PRN PRN Sob &/Or Wheezing 04/21/16 [History Last Taken Unknown] cyclobenzaprine 10 mg tablet 10 mg PO TID PRN PRN SPASMS ##60 05/06/16 [Rx Last Taken Unknown] ferrous sulfate 325 mg (65 mg iron) tablet 325 mg PO DAILY anemia 01/18/23 [History Last Taken Unknown] furosemide 20 mg tablet 20 mg PO DAILY edema 01/18/23 [History Last Taken Unknown] metoprolol succinate 50 mg tablet,extended release 24 hr 50 mg PO DAILY htn 01/18/23 [History Last Taken Unknown] sacubitril 24 mg-valsartan 26 mg tablet (Entresto) 1 tab PO BID . 01/18/23 [History Last Taken Unknown] Allergy/AdvReac Type Severity Reaction Status Date / Time No Known Allergies Allergy Verified 04/28/23 21:03 Family History (Updated 04/29/23 @ 00:[address] Marixa Gama DO) Other CAD (coronary artery disease) Heart disease Hypertension Surgical History H/O adenoidectomy History of appendectomy Hx of neck surgery Hx of tonsillectomy Total knee replacement status Social History (Updated 04/29/23 @ 00:[address] Marixa Gama, DO) household members: spouse housing: house Smoking Status: Current every day smoker tobacco type: cigarettes alcohol intake: current alcohol intake frequency: holidays/special occasions only substance use type: does not use ROS Constitutional Constitutional: Denies anorexia, change in weight, chills, fatigue, fever(s), malaise, night sweats, weakness or other Eyes Eyes: Denies blurry vision, change in eye color, change in vision, discharge from eye(s), double vision, erythema, eye pain, loss of vision or other ENT HEENT: Denies abnormal hearing, dysphagia, ear pain, epistaxis, headache(s), hearing loss, nasal congestion, nasal discharge, post nasal drip, sinus pressure, sore throat or other Cardiovascular Cardiovascular: Reports dyspnea on exertion and other Details: Back pain that radiated to left shoulder and down left arm-currently resolved ; Denies chest pain, claudication, edema, lightheadedness, orthopnea, palpitations, paroxysmal nocturnal dyspnea, rapid heart rate or syncope Respiratory/Chest Respiratory/Chest: Reports shortness of breath at rest and shortness of breath with exertion; Denies cough, dyspnea, excessive phlegm production, hemoptysis, productive cough, wheezing or other Gastrointestinal Gastrointestinal: Denies abdominal pain, coffee ground emesis, constipation, diarrhea, dyspepsia, hematemesis, hematochezia, loose stools, melena, nausea, vomiting or other Genitourinary Genitourinary: Denies burning urination, difficulty urinating, dysuria, hematuria, nocturia, urinary frequency, urinary hesitancy, urinary incontinence,urinary urgency or other Musculoskeletal Musculoskeletal: Reports back pain; Denies arthralgias, joint pain, joint stiffness, joint swelling, myalgias, neck pain or other Neurologic Neurologic: Denies abnormal gait, abnormal speech, confusion, disequilibrium, dizziness, focal weakness, headache(s), numbness, paresthesias, seizure-like activity, seizures, syncope, tingling, tremor(s) or other Psychiatric Psychiatric: Denies anxiety, depression, homicidal ideation, suicidal ideation or other Endocrine Endocrinology: Denies change in body appearance, cold intolerance, excessive sweating, heat intolerance, polydipsia, polyuria or other Hematologic/Lymphatic Hematologic/Lymphatic: Denies anemia, easy bleeding, easy bruising, lymphadenopathy or other Allergic/Immunologic Allergic/Immunologic: Denies rhinitis, hives, eczemia, asthma or other Vital Signs Vital Signs Vital Signs: 04/28/23 20:57 04/28/23 21:04 04/28/23 21:04 Temperature 97.9 F Temperature Source Temporal Pulse Rate 142 H Respiratory Rate 20 H Respiratory Effort Normal Non-Labored Blood Pressure 90/65 Blood Pressure Mean 73 Pulse Ox 96 Oxygen Delivery Method Nasal Cannula Oxygen Flow Rate (L/min) 4 04/28/23 22:19 04/28/23 22:29 Temperature Temperature Source Pulse Rate 133 H 97 Respiratory Rate 30 H 27 H Respiratory Effort Blood Pressure 124/93 H 124/89 H Blood Pressure Mean 103 100 Pulse Ox 91 98 Oxygen Delivery Method Nasal Cannula Oxygen Flow Rate (L/min) 1 5 Physical Exam Const alert, oriented x3, no apparent distress, average body habitus and well nourished Constitutional Narrative: Upper middle-aged, white female, appears older than stated age, sitting up in bed, appears comfortable, significant other at bedside, nontoxic-appearing and comfortable General Appearance: cooperative HEENT normocephalic, head/scalp atraumatic, hearing grossly normal bilaterally and moist oral mucous membranes HEENT Narrative: Dentures in place, Mallampati 2, no thrush Eyes PERRL, EOMs intact bilaterally and conjunctivae normal Eyes Narrative: No scleral icterus Neck no lymphadenopathy, supple, no JVD and no carotid bruits Resp no retractions and no use of accessory muscles Resp Narrative: Diffuse crackles, mild tachypnea Auscultation: crackles; Negative for rhonchi or wheezes Cardio regular rate, regular rhythm, S1 normal heart sound, S2 normal heart sound, no murmurs, no rub, no gallops and no clicks GI normal to inspection, nondistended, normoactive bowel sounds, soft to palpation and non-tender Extremity no clubbing, cyanosis or edema Extremity Narrative: Pedal pulses are 2+, radial pulses are 2+ Skin no rashes or lesions noted, no wounds, skin turgor normal, no jaundice, no petechiae and no mottling Neuro oriented x3, CN's II-XII intact bilaterally, moves all extremities and no focal motor deficits Speech: speech normal Psych affect normal Psych Narrative: Very pleasant, eye contact is good, patient interacts appropriately Results Lab / Micro Data Attestation: I reviewed the patient's lab results. 04/28/23 20:20 04/28/23 20:20 Labs: Laboratory Results - last 24 hr 04/28/23 20:20: WBC 7.8, RBC 5.99 H, Hgb 18.8 H*, Hct 58.3 H, MCV 97.3, MCH 31.4, MCHC 32.2, RDW Std Deviation 55.4 H, RDW Coeff of Sarah 15.7 H, Plt Count 290, MPV 10.6, Immature Gran % (Auto) 0.300, Neut % (Auto) 64.9, Lymph % (Auto) 23.7, Ector % (Auto) 8.2, Eos % (Auto) 2.0, Baso % (Auto) 0.9, Absolute Neuts (auto) 5.1, Absolute Lymphs (auto) 1.86, Nucleated RBC % 0, PT Cancelled, INR Cancelled, Sodium 138, Potassium 3.6, Chloride 98, Carbon Dioxide 31.0, Anion Gap 9, BUN 11, Creatinine 0.97, Est GFR (MDRD) Af Amer 73, Est GFR (MDRD) Non-Af60, BUN/Creatinine Ratio 11.3, Glucose 167 H, Calcium 9.4, Troponin I High Sens 12, B-Natriuretic Peptide 736.0 H 04/28/23 22:05: PT 33.8 H, INR 3.3 04/28/23 22:40: Troponin I High Sens 71 H EKG Initial EKG: Attestation: I personally reviewed and interpreted this EKG as follows: Prior EKG tracings: available for review (Previous EKG from January showed A-fib with RVR at a rate of [address]-T wave changes) EKG Rhythm Intrepretation: Atrial Fibrillation (With RVR and a rate of 142with ST depression that significant in V3 through V6 and mild ST elevation in aVR) Follow-up EKG: Attestation: I personally reviewed and interpreted this EKG as follows: Prior EKG tracings: available for review EKG Rhythm Intrepretation: Sinus Rhythm (ST segment depression that was noted while in A-fib had resolved) Radiology Impression Chest X-Ray 04/28/23 21:10 IMPRESSION: No evidence of cardiopulmonary disease. Electronically Signed: Vazquez Duran DO at 21:41 EDT , Assessment & Plan Assessment/Plan (1) Chest pain: (2) Paroxysmal atrial fibrillation with RVR: (3) Erythrocytosis: (4) Hyperglycemia: (5) Elevated troponin I level: (6) Elevated brain natriuretic peptide (BNP) level: PLAN: Plan NSTEMI -Patient was found to be in RVR on presentation -Pain that radiated to her back and to her left shoulder down her left arm that subsided when her rate was more controlled however her EKG was markedly abnormalwhile she was on RVR -EKG showed mild ST elevation in aVR and significant ST depression in V3 through V6 -I reviewed her EKG from previous when she was RVR at the same rate and thesefindings were not present at that time -Patient has significant family history of coronary disease with her brother dying at 57 and all of her siblings have coronary disease -I anticipate the patient will need cardiac catheterization -Aspirin load in the emergency department and then 81 mg daily -Start atorvastatin 80 mg nightly -Continue home metoprolol -Check hemoglobin A1c -Check lipids -Check echocardiogram -Had recent echocardiogram on 07/20/2022 at [facility] at which time she had an EF of 65 to 70%, mild biatrial enlargement, right ventricular systolic pressure of 35 mmHg and 1+ MR and TR -Hold Coumadin -5 mg of vitamin K with an INR of 3.3 -N.p.o. after midnight -Consult cardiology A-fib with RVR with history of PAF -Patient is now converted to normal sinus rhythm -On Coumadin chronically -Hold for anticipated cardiac catheterization -Amio load in the emergency department and has converted -We will hold on further Amio now--> I am wondering if ischemia precipitated this event -Continue home beta-theodore Elevated BNP -With the above advance I suspect she developed some heart failure -Lasix 40 mg IV push twice daily -Continue home meds appropriately -Check echocardiogram Erythrocytosis -Patient still smoking and I suspect this is related to her history of tobacco abuse -Anticipate that she may be hypoxic especially at night and patient thinks that she may be as well -Would recommend outpatient work-up further if not been pursued -Continue supplemental oxygen to maintain sats greater than 88% -It appears that the patient may be on iron supplements at home if so after medsconfirmed will hold COPD/emphysema -Highly recommend pulmonary follow-up after discharge -Recommend tobacco cessation -As needed albuterol available Tobacco abuse -Recommend cessation -Nicotine patch available DVT prophylaxis -Patient is fully anticoagulated with Coumadin and INR is therapeutic at 3.3 CODE STATUS -Full code as verified on admission Charges/Coding Visit Charges Inpatient E&M: 21231 Init Hosp L3 04/29/23 0024 <Electronically signed by Marixa Gama DO> Cosigner Signature (if applicable): CC: Dr. Marixa Gama, DO; Dr. Eliazar Barrios, DO~ Signed [facility] Work Phone: Hospital course Narrative No data available for this section [facility] Discharge instructions No data available for this section [facility] Discharge instructions Additional Instructions You have a new abnormal heart rhythm called atrial fibrillation. It initially was accelerated with a heart rate in the 150s. You are still in the abnormal rhythm but your rates now in the 80s. Continue your blood pressure medication metoprolol which should also help control your heart rate. 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 Call them today to get an appointment. They may want to start you on different medications, do other cardiac testing or even start you on a blood thinner. Watch your blood pressure and pulse check at least twice daily. If you are heart rate continues over 100 you need to be reevaluated. If you are feeling worse you need to be reevaluated. I spoke with your cardiology nurse practitioner in [place] call their office and they will ensure close follow-up.[facility] Work Phone: Progress note No data available for this section [facility] Chief Complaint and Reason for Visit Chief Complaint SHAKINESS Chief Complaint SHAKINESS CHEST PAIN Reason for Visit Chest pain Elevated brain natriuretic peptide (BNP) level Elevated troponin I level Erythrocytosis Hyperglycemia Paroxysmal atrial fibrillation with RVR Chief Complaint SHAKINESS CHEST PAIN CHEST PAIN/AFIB WITH RVR CHEST PAIN/AFIB WITH RVR CHEST PAIN/AFIB WITH RVR CHEST PAIN/AFIB WITH RVR Reason for Visit Angina pectoris Chest pain Elevated brain natriuretic peptide (BNP) level Elevated troponin I level Erythrocytosis Hyperglycemia Nicotine dependence Paroxysmal atrial fibrillation Paroxysmal atrial fibrillation with RVR Hypertension Severe chronic obstructive pulmonary disease Advance Directives No Advanced Directives Records Found Advance Directive Response Recorded Date/ Time Advance Directives No May 04, 2016 11:16am Living Will No January 18, 2023 1 1:49am Power of Loading Dock Hand No January 18, 2023 11:49am Advance Directive Response Recorded Date/ Time Advance Directives No May 04, 2016 11:16am Living Will No April 28 9:05pm Power of Loading Dock Hand No April 28 023 9:05pm Advance Directive Response Recorded Date/ Time Name of Medical Power of Loading Dock Hand Manuel Vasquez April 29, 2023 12:37am Advance Directives No May 04, 2016 11:16am Living Will Yes April 29 12:37am Power of Loading Dock Hand Yes April 29 023 12:37am Family History No Family History Records Found Relationship Condition Age at Onset Recorded Date/T zuri Not Specified Coronary artery disease Unknown Cardiac disease Unknown Hypertension Unknown Summary Purpose Additional Source Comments Care Team (unrecognized sect ion and content) Care Team Personnel Name: ELIAZAR BARRIOS DO Position: P4 Physician - Primary Care Med Service: Active Provider Member Role: Primary Care Physician Address: [address] [id number]- Care Team Related Persons Name: GABRIEL VASQUEZE Care Team Personnel Name: ELIAZAR BARRIOS DO Position: P4 Physician - Primary Care Member Role: Primary Care Physician Address: Address: [address] [place] [address]- Care Team Related Persons Name: GABRIEL VASQUEZE Care Team Personnel Name: ELIAZAR BARRIOS DO Position: P4 Physician - Primary Care Med Service: Active Provider Member Role: Primary Care Physician Address: Address: [address] [place] [address]- Care Team Related Persons Name: GABRIEL VASQUEZE Care Team Personnel Name: ELIAZAR BARRIOS DO Position: P4 Physician - Primary Care Member Role: Primary Care Physician Address: Address: [address] [place] [address]- Care Team Related Persons Name: GABRIEL VASQUEZE Care Team Personnel Name: ELIAZAR BARRIOS DO Position: P4 Physician - Primary Care Member Role: Primary Care Physician Address: Address: [address] [place] [address]- Care Team Related Persons Name: DEION TED Care Team Personnel Name: ELIAZAR BARRIOS DO Position: P4 Physician - Primary Care Member Role: Primary Care Physician Address: Address: [address] [place] [address]- Care Team Related Persons Name: DEION TED Care Team Personnel Name: ELIAZAR BARRIOS DO Position: P4 Physician - Primary Care Member Role: Primary Care Physician Address: Address: [facility] [place] [address]- Care Team Related Persons Name: DEION, TED Care Team Personnel Name: ELIAZAR BARRIOS DO Position: P4 Physician - Primary Care Member Role: Primary Care Physician Address: Address: [address] [place] [address]- Care Team Related Persons Name: TED VASQUEZ Care Team Personnel Name: ELIAZAR BARRIOS DO Position: P4 Physician - Primary Care Member Role: Primary Care Physician Address: Address: [address] [place] [address]- Care Team Related Persons Name: TDE VASQUEZ Patient Care team informatio n (unrecognized section and content) Team Status: Active Member Role Status Dates Dr. Eliazar Barrios , DO Family Provider Active Dr. Eliazar Barrios , DO Primary Care Provider Activ e Team Status: Inactive Member Role Status Dates Dr. Eliazar Barrios , DO Primary Care Provider Activ e Dr. Meng Ramirez MD Emergency Provider Active Team Status: Inactive Member Role Status Dates Dr. Eliazar Barrios , DO Primary Care Provider Activ e Dr. Meng Ramirez MD Attending Provider, Emergency Pro vider Active Team Status: Active Member Role Status Dates Dr. Eliazar Barrios , DO Primary Care Provider Activ e Dr. Silver Harris , DO Emergency Provider Active Dr. Marixa Gama , DO Admit Provider, Attending Provide r Active Team Status: Active Member Role Status Dates Dr. Eliazar Barrios , DO Primary Care Provider Activ e Dr. Silver Harris , DO Emergency Provider Active Dr. Marixa Gama , DO Admit Provider, Att ending Provider, Other Provider Active Team Status: Active Member Role Status Dates Dr. Eliazar Barrios , DO Primary Care Provider Activ e Dr. Silver Harris , DO Emergency Provider Active Dr. Marixa Gama , DO Admit Provider, Other Provider Ac tive Dr. Parker Lee MD Attending Provider, Other Provid er Active Dr. Marion Muñiz MD Other Provider Active Team Status: Active Member Role Status Dates Dr. Eliazar Barrios , DO Primary Care Provider Activ e Dr. Silver Harris , DO Emergency Provider Active Dr. Marixa Gama , DO Admit Provider, Other Provider Ac tive Dr. Parker Lee MD Other Provider Active Dr. Marion Muñiz MD Attending Provider, Other Prov ider Active Team Status: Inactive Member Role Status Dates Dr. Eliazar Barrios , DO Primary Care Provider Activ e Dr. Silver Harris , DO Emergency Provider Active Dr. Marixa Gama , DO Admit Provider, Other Provider Ac jay Lee MD Other Provider Active Dr. Marion Muñiz MD Attending Provider Active Goals (unrecognized section and content) Goals may be documented in a n alternate section INFORMATION SOURCE (unrecogn ized section and content) DATE CREATED AUTHOR 04/27/2024 [facility] ([place]) DATE CREATED AUTHOR AUTHOR'S ORGANIZ ATION 09/16/2024 [facility] DATE CREATED AUTHOR AUTHOR'S ORGANIZ ATION 02/01/2025 [facility] FOR RECORDS PERTAINING TO PATIENTS WHO ARE OR HAVE BEEN ENROLLED IN A CHEMICAL DEPENDENCY/SUBSTANCEABUSE PROGRAM, SOME INFORMATION MAY BE OMITTED. This clinical summary was aggregated from multiple sources. Caution should be exercised in using it in the provision of clinical care. This summary normalizes information from multiple sources, and as a consequence, information in this document may materially change the coding, format and clinical context of patient data. In addition, data may be omitted in some cases. CLINICAL DECISIONS SHOULD BE BASED ON THE PRIMARY CLINICAL RECORDS. [employer] [facility]. provides no warranty or guarantee of the accuracy or completeness of information in this document.
--- NOTE | 2025-02-25 13:13 | EDS_ITS ---
HPI History of Present Illness Chief Complaint: Lower Extremity Injury [facility] Medical History Acute on chronic respiratory failure with hypoxia and hypercapnia Hypertension Atherosclerotic heart disease of [place] coronary artery with unstable angina pectoris Paroxysmal atrial fibrillation Nicotine dependence Severe chronic obstructive pulmonary disease Osteoarthritis Degenerative disc disease Tobacco abuse Chronic anticoagulation Afib History of emphysema Acute bronchitis, unspecified Home Medications ?Medication ?Instructions ?Recorded ?Last Taken ?Type ferrous sulfate 325 mg (65 mg 325 mg PO DAILY anemia 0 01/18/23 Unknown History iron) tablet sacubitril 24 mg-valsartan 26 mg 1 tab PO BID heart Unknown History tablet (Entresto) cholecalciferol (vitamin D3) 50 50 mcg PO DAILY supple ment 04/29/23 Unknown History mcg (2,000 unit) capsule aspirin 81 mg tablet,delayed 81 mg PO DAILY@0800 heart health 04/30/23 Unknown Rx release 30 days #30 tabs atorvastatin 20 mg tablet 20 mg PO QHS cholesterol 30 days 04/30/23 Unknown Rx #30 tabs apixaban 5 mg tablet (Eliquis) 5 mg PO BID blood thinn er 08/30/24 Unknown Hi story fluticasone fur. 100 mcg-umeclid 1 ea inhalation DAILY wheezing 08/30/24 Unknown History 62.5 mcg-vilant 25 mcg inhalat.powder (Trelegy Ellipta) torsemide 20 mg tablet 20 mg PO DAILY diuretic 08/07 01/27 Unknown History fluticasone fur. 100 mcg-umeclid 1 inh inhalation BRIANA Y COPD 08/31/24 08/30/24 History 62.5 mcg-vilant 25 mcg inhalat.powder (Trelegy Ellipta) amiodarone 200 mg tablet 200 mg PO DAILY 30 days #30 tabs 09/03/24 Unknown Rx dextromethorphan-guaifenesin ER 60 1 tab PO BID 7 days #14 tabs 09/03/24 Unknown Rx mg-1,200 mg tab,extend release,12hr lactulose 20 gram/30 mL oral 10 g (15 mL) PO BID PRN 1 11/04/23 Unknown Rx solution constipation #1,500 mL metoprolol succinate 50 mg 50 mg PO BID blood pressure 30 09/03/24 Unknown Rx tablet,extended release 24 hr days #60 tabs nicotine 21 mg/24 hr daily 21 mg transdermal DAILY 28 days 09/03/24 Unknown Rx transdermal patch #28 ea prednisone 20 mg tablet 40 mg (2 x 20 mg) PO DAILY 5 days 09/03/24 Unknown Rx #10 tabs Allergy/AdvReac Type Severity Reaction Status Date / Time No Known Allergies Allergy Verified 02/25/25 12:29 Family History Other CAD (coronary artery disease) Heart disease Hypertension Surgical History H/O adenoidectomy Hx of tonsillectomy History of appendectomy Total knee replacement status Hx of neck surgery Social History household members: spouse housing: house Smoking Status: Former smoker alcohol intake: current alcohol intake frequency: holidays/special occasions only substance use type: does not use EXAM Physical Exam Const Vital Signs: 02/25/25 12:29 Temperature 98.3 F Temperature Source Oral Pulse Rate 74 Respiratory Rate 18 Blood Pressure 112/70 Blood Pressure Mean 84 Pulse Ox 96 Oxygen Delivery Method Room Air MDM MDM [facility] Narrative Medical decision making narrative: HISTORY OF PRESENT ILLNESS: Chief complaint: Left foot pain after fall 69-year-old female presents with left foot pain and swelling after fall. REVIEW OF SYSTEMS: Pertinent positives: Left foot pain Pertinent negatives: Numbness, tingling PHYSICAL EXAM: Nursing triage notes reviewed, Vital signs reviewed Constitutional: please see mdm Extremities: No edema, TTP over left lateral metatarsals. Compartments are soft. No sign of open fracture. Left lower extremity is warm and well- perfused. Neuro: Intact sensation L1-S1 dermatomal distributions. Intact 5/5 strength in hip flexion (T12-L3). Knee extension (L2-L4). Ankle dorsiflexion (L4-L5). Ankle plantar flexion (S1). Great toe extension (L5). 2+ patellar and Achilles DTRs. Skin: No rash or lesions noted MEDICAL DECISION MAKING: Chief Complaint: please see HPI External records reviewed: Reviewed prior imaging, allergies Factors affecting care: Hypertension, COPD Social determinants of health: none History obtained from others: none Consults: none [facility] Narrative: The patient was initially hemodynamically stable, afebrile and nontoxic- appearing. Exam TTP over left lateral metatarsals I considered the following differential diagnosis: Foot fracture, dislocation, contusion I obtained an x-ray of the left foot workup to further determine if the patient was suffering from a life-threatening etiology. Initially gave the patient oral oxycodone ALL IMAGES (IF OBTAINED) HAVE BEEN PERSONALLY REVIEWED AND INTERPRETED BY MYSELF. X-ray left foot was read reviewed personally myself showed no evidence of obvious bony abnormality. Radiologist agrees my interpretation. The synthesis of the patient's history, physical exam and imaging suggest likely left foot contusion/sprain. Will recommend Tylenol, RICE therapy. Strict return precautions were discussed The patient and/or family, caregivers express understanding. The patient and/or family, caregivers agrees with the plan. Shared decision making: I will have a discussion with the patient and or visitors regarding risk/benefits of further testing or admission. They will be made aware of of the risk/benefits inherent in this decision they will be given the opportunity to voice understanding. Total critical care time today provided was at least 0 minutes. This excludes separately billable procedures. Critical care time (if documented) is secondary to the patient having high probability of clinically significant/life threatening deterioration in the patient's condition which required my urgent intervention. Impression: 1. Left Foot Pain 2. Acute left foot contusion Dispo: discharge This note was generated with [employer] dictation software. It may contain incorrect words, spelling, and punctuation that were not noted in review of the chart prior to signing. Radiography Diagnostic Testing: Clinical Impression(s) from Imaging Studies Foot X-Ray 02/25/25 13:31 IMPRESSION: No acute bony abnormality detected. Reading [facility] Discharge Plan Triage Chief Complaint: Lower Extremity Injury ED Provider: Devon Miguel Dx/Rx/DC Orders Prescriptions: No Action sacubitril-valsartan [Entresto] 24-26 mg tablet 1 tab PO BID Patient Comments: TAKE 1 TABLET BY MOUTH TWICE A DAY ferrous sulfate 325 mg (65 mg iron) tablet 325 mg PO DAILY Patient Comments: TAKE 1 TABLET BY MOUTH EVERY DAY WITH FOOD cholecalciferol (vitamin D3) 50 mcg (2,000 unit) capsule 50 mcg PO DAILY Patient Comments: TAKE 1 CAPSULE BY MOUTH EVERY DAY atorvastatin 20 mg Tablet 20 mg PO QHS 30 Days Qty: 30 0RF aspirin 81 mg Tablet,Delayed Release (Dr/Ec) 81 mg PO DAILY@0800 30 Days Qty: 30 0RF Eliquis 5 mg tablet 5 mg PO BID torsemide 20 mg tablet 20 mg PO DAILY Trelegy Ellipta 100-62.5-25 mcg blister with device 1 ea INHALATION DAILY Trelegy Ellipta 100-62.5-25 mcg blister with device 1 inh inhalation DAILY amiodarone 200 mg Tablet 200 mg PO DAILY 30 Days Qty: 30 1RF dextromethorphan-guaifenesin 60-1,200 mg tablet extended release 12 hr 1 tab PO BID 7 Days Qty: 14 0RF lactulose 20 gram/30 mL Solution 10 g PO BID PRN (Reason: constipation) Qty: 1500 0RF nicotine 21 mg/24 hr Patch 24 Hour 21 mg transdermal DAILY 28 Days Qty: 28 0RF prednisone 20 mg tablet 40 mg PO DAILY 5 Days Qty: 10 0RF metoprolol succinate 50 mg Tablet Extended Release 24 Hr 50 mg PO BID 30 Days Qty: 60 0RF Rx Instructions: Hold for heart less than 50 or systolic blood pressure less than 110 mmHg. Primary Care Provider: Michelle Barrios Referrals: Michelle Barrios, [Primary Care Provider] - Print Language: South African
--- NOTE | 2025-02-25 13:31 | RAD_ITS ---
PROCEDURE: FOOT MIN 3 VIEWS 02/25/2025 REASON FOR EXAM: LEFT FOOT PAIN TECHNIQUE: FOOT MIN 3 VIEWS COMPARISON: None FINDINGS: Bones: Unremarkable. Joints: No significant osteoarthritis. Soft tissues: Unremarkable soft tissues Other: RAD/Foot min 3 Views IMPRESSION: No acute bony abnormality detected. Reading [facility]
[2025-02-25] MEDS: oxyCODONE 5 MG Tablet PO (13:35)
[2025-02-25 14:53] VITALS: BP 130/74; PULSE 68; RESP 16; TEMP 36.6; O2SAT 99
== END 2025-02-25 14:54 | disposition home or self-care (01) ==
PROVIDERS: Emergency Provider Emergency Medicine; Visit Provider Emergency Medicine
DX: S90.32XA Contusion of left foot, initial encounter (principal); J43.9 Emphysema, unspecified; I48.0 Paroxysmal atrial fibrillation; W19.XXXA Unspecified fall, initial encounter; I25.10 Atherosclerotic heart disease of native coronary artery without angina pectoris; I10 Essential (primary) hypertension; Z79.899 Other long term (current) drug therapy; Z79.82 Long term (current) use of aspirin; Z87.891 Personal history of nicotine dependence
CPT/HCPCS: 73630; 99282